=== PATIENT | female | born 1975 | race Caucasian/White ===

== ENCOUNTER 2016-05-14 19:06 | Observation (INO) ==
[2016-05-14] MEDS ORDERED: *HR* HYDROmorphone (PF) 1 MG/ML SYRINGE IVP ONE (20:50)
[2016-05-14 21:27] LABS: Basophils % 0.1 %; Eosinophils % 0.1 %; Hematocrit 32.1 % (35.3-44.9); Hemoglobin 10.8 g/dL (11.5-15.4); Immature Granulocytes % 0.7 % (0-4); Lymphocytes # 1.3 K/mcL (0.6-4.6); Lymphocytes % 9.8 %; Mean Corpuscular HGB Conc 33.6 g/dL (31.6-35.5); Mean Corpuscular Hemoglobin 30.9 pg (28.0-33.3); Mean Corpuscular Volume 91.7 fL (83.0-100.0); Mean Platelet Volume 8.3 fL (9.4-12.4); Monocytes # 1.9 K/mcL (0.0-1.3); Monocytes % 14.4 %; Platelet Count 327 K/mcL (140-400); Red Cell Distribution Width 15.9 % (11.5-14.5); Segmented Neutrophils % 74.9 %
[2016-05-14 21:40] LABS: Alanine Aminotransferase 87 Units/L (0-55); Albumin 2.8 g/dL (3.5-5.0); Albumin/Globulin Ratio 0.9 (1.1-2.2); Alkaline Phosphatase 201 Units/L (38-126); Aspartate Amino Transferase 135 Units/L (5-34); BUN/Creatinine Ratio 20 (6-26); Bilirubin,Total 0.4 mg/dL (0.2-1.2); Blood Urea Nitrogen 12 mg/dL (7-20); Calcium 7.9 mg/dL (8.6-10.8); Carbon Dioxide 13 mEq/L (19-29); Chloride 96 mEq/L (98-109); Globulin 3.2 g/dL (2.4-3.5); Glucose 119 mg/dL (70-99); Osmolality,Calculated 273 (280-300); Potassium 4.3 mEq/L (3.5-4.5); Sodium 131 mEq/L (136-145); eGFR For African Americans > 60 (> 60); eGFR For Non-African Americans > 60 (> 60)
--- NOTE | 2016-05-14 21:43 | Internal Med History&Physical ---
Date of Encounter: 05/14/16 Time of Encounter: 21:41 Assessment and Plan (1) Esophageal foreign body Current visit: Yes Status: Acute I have reviewed both chest x-ray and neck soft tissue x-rays, foreign body is not evident as best I can tell. We do need to pursue upper endoscopy though given her current symptoms of hypersalivation, inability to swallow, and foreign body sensation. I have discussed risks and benefits of the procedure with her in her room. She has consented. Risks to include perforation of the esophagus and stomach, as well as bleeding and infection. Qualifiers: Qualified Code(s): T18.108A - Unspecified foreign body in esophagus causing other injury, initial encounter (2) Alcohol abuse Current visit: Yes Status: Chronic (3) Mood disorder Current visit: Yes Status: Chronic (4) Alcoholic cirrhosis of liver without ascites Current visit: No Status: Chronic (5) Anemia Current visit: Yes Status: Chronic Qualifiers: Anemia type: iron deficiency Iron deficiency anemia type: unspecified iron deficiency Qualified Code(s): D50.9 - Iron deficiency anemia, unspecified Internal Medicine - H&P: HPI Chief complaint: Possible plastic lid swallowed and now with inability to swallow liquids History of present illness: Ms. Abdi is a 40 year old female presents to the ED with possible esophageal foreign body. She admits taking a drink of water last night in the dark, with her medication, but apparently the top of the plastic water bottle was still on and she excellent swallowed this. Since this a.m., she has been Unable to swallow liquids. She has also had some bouts of nausea and retching with some lower neck and upper anterior chest pain but only when she takes a deep breath or when she gags. She admits having alcoholic intoxication last night during spell. She's never had previous foreign body lodging in her esophagus. Past Med Surg Social Fam HX - Past Medical History Medical history: cirrhosis, GERD, hyperlipidemia, hypertension, liver disease, other Psychiatric history: ADHD, bipolar, prior suicide attempt, previous psychiatric hospitalization - Past Surgical History Surgical History: appendectomy, cholecystectomy, herniorrhaphy, hysterectomy, other (Previous PEG tube) - Social History Smoking Status: Current every day smoker Smokeless Tobacco Status: No Alcohol use: heavy Drug use: opiates Activity Level: Independent ambulation Additional social history: She has previous narcotic addiction currently taking Subutex, currently alcoholic - Family History Father Living Status: Still Living Hx Family Cardiac Disorders: No Hx Family Respiratory Disorders: No Hx Family Cancer: No Hx Family GI Disorders: No Hx Family Endocrine Disorder: No Hx Family Neuromuscular Disorders: No Hx Family Neurologic Disorders: No Hx Family HEENT Disorders: No Hx Family Autoimmune Disorders: No Grandfather Living Status: Hx Family Cardiac Disorders: Yes (MS) Maternal Grandmother Living Status: Still Living Hx Family Cancer: Yes (Lung) Sister Living Status: Still Living Hx Family Cancer: Yes (Ovarian) Mother Adopted: No Living Status: Still Living Hx Family Cardiac Disorders: No Hx Family Respiratory Disorders: No Hx Family Cancer: No Hx Family GI Disorders: No Hx Family Endocrine Disorder: Yes Hx Family Neuromuscular Disorders: No Hx Family Neurologic Disorders: No Hx Family HEENT Disorders: No Hx Family Autoimmune Disorders: No Internal Medicine - H&P: Meds CloNIDine HCl 0.1 mg PO TID PRN 12/20/14 [History] Cyanocobalamin (B-12) [Vitamin B12] 1 ml IJ QMONTH 12/20/14 [History] Dextroamphetamine/Amphetamine [Adderall 10 mg Tablet] 10 mg PO TID 12/20/14 [ History] Ergocalciferol (VITAMIN D2) [Drisdol (50,000 Unit)] 50,000 unit PO Q14D [History] OLANZapine [Zyprexa] 20 mg PO HS 12/20/14 [History] Ranitidine HCl [Zantac] 300 mg PO BID 12/20/14 [History] Sucralfate [Carafate] 1 gm PO QIDAC 12/20/14 [History] Albuterol Sulfate [Albuterol Inhaler] 2 puff IH Q4HR PRN #1 inhaler 12/21/14 [Rx ] Promethazine [Phenergan] 25 mg PO Q8HR PRN #90 tablet 12/21/14 [Rx] Lipase/Protease/Amylase [Pancrelipase Dr 5,000 Unit Cap] 360,000 unit PO TIDWM 02/04/15 [History] Simethicone [Gas-X] 80 mg PO TID 02/04/15 [History] Diphenoxylate/Atropine [Lomotil 2.5 mg/0.025 mg] 1 each PO QID PRN 07/28/15 [ History] Vilazodone HCl [Viibryd] 60 mg PO DAILY 09/16/15 [History] Nut.tx.impaired Digest Fxn [Ensure Clear] 1 bottle PO BID #60 can 10/22/15 [Rx] Aspirin [Lo-Dose Aspirin EC] 81 mg PO DAILY 10/29/15 [History] Buprenorphine HCl [Subutex] 8 mg SL BID 01/29/16 [History] Cyanocobalamin (B-12) [Vitamin B12] 1,000 mcg IM QMONTH #1 mls 02/29/16 [Rx] Esomeprazole Magnesium [Nexium] 40 mg PO BID #60 capsule.dr 02/29/16 [Rx] [place], Disposable [Needle] 1 each AD #12 dis.needle 02/29/16 [Rx] Potassium Chloride [Klor-Con M15] 15 meq PO DAILY 05/02/16 [History] Zinc Acetate [Galzin] 25 mg PO DAILY 05/02/16 [History] Allergies cephalexin Allergy (Verified 04/21/16 11:58) Rash clindamycin Allergy (Verified 04/21/16 11:58) Rash nalbuphine [From Nubain] Adverse Reaction (Verified 04/21/16 11:58) "didn't like the way it made me feel" All Systems PM: A 10-system review of systems was performed and is negative for pertinent findings except as documented above in the HPI. Review of systems: She does have a PICC line in for intermittent IV nutrition - Constitutional Constitutional: anorexia, no chills, no fatigue - Cardiovascular Cardiovascular ROS IM: chest pain, no diaphoresis, no dyspnea, no dyspnea on exertion, no palpitations Additional comments: Reports a history of previous [place]gwpvvyny-Dwwal - Respiratory Respiratory: pain with cough, no cough, no dyspnea, no hemoptysis, no dyspnea on exertion, no wheezing - Gastrointestinal Gastrointestinal: dysphagia, nausea, odynophagia, vomiting - Psychiatric Psychiatric: anxiety, depression - Constitutional Vitals: Temp Pulse Resp BP Pulse Ox 99.0 F 96 14 113/68 96 05/14/16 19:10 05/14/16 21:01 05/14/16 21:01 05/14/16 21:01 05/14/16 21:01 General appearance: Present: cachectic, mild distress, A&O X 3, answers questions appropriately - Head Head exam: Present: atraumatic - ENT ENT exam: Present: mucous membranes moist, normal exam - Neck Neck exam general surgery: Present: full ROM, normal inspection, tenderness, supple, trachea midline. Absent: lymphadenopathy, nuchal rigidity - Respiratory Respiratory exam: Present: CTAB - Cardiovascular Cardiovascular exam: Present: RRR. Absent: systolic murmur, tachycardia - GI/Abdominal GI/Abdominal exam: Present: normal bowel sounds, soft, no peritoneal signs. Absent: distended, firm, guarding, hernia, rebound, rigid, splenomegaly, tenderness - Rectal Rectal exam: Present: deferred Internal Med - H&P Results - Labs CBC & Chem 7: 05/14/16 21:14 Labs: Short CBC 05/14/16 Range/Units 21:14 WBC 13.3 H D (4.3-11.1) K/mcL Hgb 10.8 L (11.5-15.4) g/dL Hct 32.1 L (35.3-44.9) % Plt Count 327 (140-400) K/mcL Neutrophils # 10.0 H (1.6-8.9) K/mcL - Impressions ITS Impressions Chest/Abdomen X-ray 05/14/16 19:26 IMPRESSION: No radiopaque foreign body. Right PICC with tip at the cavoatrial junction. No acute abnormality in the chest. No evidence of bowel obstruction. No free intraperitoneal air. D/ / 05/14/2016 20:27:38 Demar Polo MD / [facility] Interpreting Provider: Demar Polo MD Soft Tissue Neck X-Ray 05/14/16 19:26 IMPRESSION: Nonspecific linear density along the anterior aspect of the esophagus just proximal to the thoracic inlet which could potentially reflect a foreign body given history of ingested bottle cap. D/ / Claudy Dorado MD / Claudy Dorado MD Interpreting Provider: Claudy Dorado MD
[2016-05-14] MEDS ORDERED: *HR* Propofol 200 MG/20 ML VIAL IVP ONE ×2 (21:54→22:42)
[2016-05-14] MEDS ORDERED: Lidocaine -MPF 2% 2 ML VIAL ONE (21:55)
[2016-05-14] MEDS ORDERED: *HR* Succinylcholine 200 MG/10 ML VIAL IVP ONE (21:56)
[2016-05-14] MEDS ORDERED: *HR* Midazolam HCl 2 MG/2 ML VIAL ONE (21:57)
[2016-05-14] MEDS ORDERED: *HR* FentaNYL (PF) 100 MCG/2 ML VIAL ONE (21:57)
[2016-05-14] MEDS ORDERED: Dexamethasone 4 MG/ML VIAL ONE (21:58)
[2016-05-14] MEDS ORDERED: *HR* Phenylephrine 10 MG/ML VIAL ONE (21:58)
[2016-05-14] MEDS ORDERED: Ondansetron 4 MG/2 ML VIAL ONE (21:58)
--- NOTE | 2016-05-14 21:58 | Pre-Sedation Evaluation ---
Pre-sedation evaluation - Pre-sedation checklist Recent Vitals: Last Vital Signs Temp 99.0 F 05/14/16 19:10 Pulse 96 05/14/16 21:01 Resp 14 05/14/16 21:01 BP 113/68 05/14/16 21:01 Pulse Ox 96 05/14/16 21:01
--- NOTE | 2016-05-14 22:19 | Anesthesia Evaluation PreOp ---
Date of Encounter: 05/14/16 Time of Encounter: 22:18 - Past History Planned Operation: FB removal (from esophagus) Cardiac History: Arrhythmia (hx WPW s/p ablation) Pulmonary History: Smoker, Other (hx bilateral PE) PERIANESTHESIA MANAGER History: Denies Any Significant HX Other Medical History: Hepatic (cirrhosis (per patient, no varices)), GERD, Other (hx platelet storage pool deficiency) Anesthesia History: No Prior Anesthetic Complications Alcohol Use: heavy Drug use: opiates Medications and Allergies CloNIDine HCl 0.1 mg PO TID PRN 12/20/14 [History] Cyanocobalamin (B-12) [Vitamin B12] 1 ml IJ QMONTH 12/20/14 [History] Dextroamphetamine/Amphetamine [Adderall 10 mg Tablet] 10 mg PO TID 12/20/14 [ History] Ergocalciferol (VITAMIN D2) [Drisdol (50,000 Unit)] 50,000 unit PO Q14D [History] OLANZapine [Zyprexa] 20 mg PO HS 12/20/14 [History] Ranitidine HCl [Zantac] 300 mg PO BID 12/20/14 [History] Sucralfate [Carafate] 1 gm PO QIDAC 12/20/14 [History] Albuterol Sulfate [Albuterol Inhaler] 2 puff IH Q4HR PRN #1 inhaler 12/21/14 [Rx ] Promethazine [Phenergan] 25 mg PO Q8HR PRN #90 tablet 12/21/14 [Rx] Lipase/Protease/Amylase [Pancrelipase Dr 5,000 Unit Cap] 360,000 unit PO TIDWM 02/04/15 [History] Simethicone [Gas-X] 80 mg PO TID 02/04/15 [History] Diphenoxylate/Atropine [Lomotil 2.5 mg/0.025 mg] 1 each PO QID PRN 07/28/15 [ History] Vilazodone HCl [Viibryd] 60 mg PO DAILY 09/16/15 [History] Nut.tx.impaired Digest Fxn [Ensure Clear] 1 bottle PO BID #60 can 10/22/15 [Rx] Aspirin [Lo-Dose Aspirin EC] 81 mg PO DAILY 10/29/15 [History] Buprenorphine HCl [Subutex] 8 mg SL BID 01/29/16 [History] Cyanocobalamin (B-12) [Vitamin B12] 1,000 mcg IM QMONTH #1 mls 02/29/16 [Rx] Esomeprazole Magnesium [Nexium] 40 mg PO BID #60 capsule.dr 02/29/16 [Rx] [place]abel, Disposable [Needle] 1 each AD #12 dis.needle 02/29/16 [Rx] Potassium Chloride [Klor-Con M15] 15 meq PO DAILY 05/02/16 [History] Zinc Acetate [Galzin] 25 mg PO DAILY 05/02/16 [History] Allergies cephalexin Allergy (Verified 04/21/16 11:58) Rash clindamycin Allergy (Verified 04/21/16 11:58) Rash nalbuphine [From Nubain] Adverse Reaction (Verified 04/21/16 11:58) "didn't like the way it made me feel" - Meds/Allergy Pre-op Review Medications Reviewed: Yes Allergies Reviewed: Yes Beta Blockers on Current Med List: No Anesthesia Results - Labs 05/14/16 21:14 05/14/16 21:14 - Imaging EKG: report reviewed, image reviewed (SR with short MS) Additional studies: -2015 TTE LVEF 60-65% no sign valvular dysfunction Anesthesia Exam Last Vital Signs Temp 99.0 F 05/14/16 19:10 Pulse 96 05/14/16 21:01 Resp 14 05/14/16 21:01 BP 113/68 05/14/16 21:01 Pulse Ox 96 05/14/16 21:01 Weight: 53 kg - HEENT Pupil (Motor): Pupils equal, EOMI Mallampati: II Teeth: Missing, Poor dentition, Prosthesis Denture Type: Lower: Partial Oral Opening: Greater than 3 - PERIANESTHESIA MANAGER LOC: Oriented - Cardiac Rhythm: Regular Murmur: None - Pulmonary Breath Sounds: bilateral Clear Respiratory Effort: Symmetrical Anesthesia Assess/Plan ASA Score: 3 Modified [place] Scale for Level of Consciousness: Cooperative, oriented, and tranquil Anesthetic Plan: General Monitoring Plan: Standard Monitors Recovery Plan: PACU
[2016-05-14 22:24] LABS: ABG Base Excess -6.9 mEq/L (-2.0 to 3.0); ABG HCO3 17.3 mEQ/L (21-27); ABG Oxygen Saturation 83 % (95-98); ABG PCO2 30 mmHg (35-45); ABG PH 7.37 pH Units (7.32-7.45); ABG TCO2 18.2 mEq/L (20-26)
[2016-05-14 22:25] LABS: Blood Gas FiO2 21 %
[2016-05-14 22:26] LABS: ABG PO2 49 mmHg (85-104)
[2016-05-14] MEDS ORDERED: D5% in 0.45% NACL 1,000 ML IVC SCH (23:00)
--- NOTE | 2016-05-14 23:06 | Event Note ---
Date of Encounter: 05/14/16 Time of Encounter: 23:04 With the help of General Anesthesia, able to remove plastic bottle cap from upper esophagus. Minimal post procedure trauma noted afterward; no bleeding, no tear. Will allow her to wake up on the floor, try Ice chips and sips of water; if she does well can send home this evening.
--- NOTE | 2016-05-14 23:08 | Emergency Department Note ---
Disposition Clinical Impression: Esophageal foreign body Qualifiers: Qualified Code(s): T18.108A - Disposition: Admitted As Inpatient Condition: Good General Adult HPI - General Chief complaint: ED Skin/Abscess/Foreign Body Stated complaint: FB in Throat Time Seen by Provider: 05/14/16 19:25 Source: patient, family Limitations: no limitations Nursing Notes Reviewed: Yes Vital Signs Reviewed: Yes - History of Present Illness HPI Narrative: Female patient who was intoxicated last evening and ingested the cap of a water bottle attempting to swallow her pills. She has since had a a foreign body sensation in her throat ever since ingestion. Denies fever, chills. Previous history of gastric bypass, feeding tube in place for malnourishment Pain Scale: 0 - Related Data Home Medications Medication Instructions Recorded Confirmed CloNIDine HCl 0.1 mg PO TID PRN 12/20/14 04/21/16 Cyanocobalamin (B-12) [Vitamin B12] 1 ml IJ QMONTH 12/20/14 04/21/16 Dextroamphetamine/Amphetamine 10 mg PO TID 12/20/14 04/21/16 [Adderall 10 mg Tablet] Ergocalciferol (VITAMIN D2) 50,000 unit PO Q14D 12/20/14 04/21/16 [Drisdol (50,000 Unit)] OLANZapine [Zyprexa] 20 mg PO HS 12/20/14 04/21/16 Ranitidine HCl [Zantac] 300 mg PO BID 12/20/14 04/21/16 Sucralfate [Carafate] 1 gm PO QIDAC 12/20/14 04/21/16 Lipase/Protease/Amylase 360,000 unit PO TIDWM 02/04/15 04/21/[address] [[address] 5,000 Unit Cap] Simethicone [Gas-X] 80 mg PO TID 02/04/15 04/21/16 Diphenoxylate/Atropine [Lomotil 1 each PO QID PRN 07/28/15 04/21/16 2.5 mg/0.025 mg] Vilazodone HCl [Viibryd] 60 mg PO DAILY 09/16/15 04/21/16 Aspirin [Lo-Dose Aspirin EC] 81 mg PO DAILY 10/29/15 04/21/16 Buprenorphine HCl [Subutex] 8 mg SL BID 01/29/16 04/21/16 Potassium Chloride [Klor-Con M15] 15 meq PO DAILY 05/02/16 05/02/16 Zinc Acetate [Galzin] 25 mg PO DAILY 05/02/16 05/02/16 Previous Rx's Medication Instructions Recorded Albuterol Sulfate [Albuterol 2 puff IH Q4HR PRN #1 inhaler 12/21/14 Inhaler] Promethazine [Phenergan] 25 mg PO Q8HR PRN #90 tablet 12/21/14 Nut.tx.impaired Digest Fxn [Ensure 1 bottle PO BID #60 can 10/22/15 Clear] Cyanocobalamin (B-12) [Vitamin B12] 1,000 mcg IM QMONTH #1 mls 02/29/16 Esomeprazole Magnesium [Nexium] 40 mg PO BID #60 capsule.dr 02/29/16 [place], Disposable [Needle] 1 each MC AD #12 dis.needle 02/29/16 Allergies Allergy/AdvReac Type Severity Reaction Status Date / Time cephalexin Allergy Rash Verified 04/21/16 11:58 clindamycin Allergy Rash Verified 04/21/16 11:58 nalbuphine [From Nubain] AdvReac "didn't Verified 04/21/16 11:58 like the way it made me feel" All systems ED: reviewed and negative except as stated. Past Medical History - Past Medical History Medical history: Reports: cirrhosis, GERD, hyperlipidemia, hypertension, liver disease, other Surgical history: Reports: appendectomy, cholecystectomy, herniorrhaphy, hysterectomy, other (Previous PEG tube) Psychiatric history: Reports: ADHD, bipolar, prior suicide attempt, previous psychiatric hospitalization FLOOR PERSON history: Reports: no FLOOR PERSON history - Social History Smoking Status: Current every day smoker Smokeless Tobacco Status: No Alcohol use: Reports: heavy Drug use: Reports: opiates Physical Exam Alert and oriented no acute distress pink warm and dry Pupils are equal and reactive, TMs clear bilaterally, mucous membranes moist, trachea midline Cardiovascular exam shows regular rate and rhythm no murmur, rub, gallop Lungs are clear to auscultation bilaterally Abdomen is soft, nontender, there is a feeding tube in place and a previous surgical incision Extremities are without cyanosis clubbing or edema Neurologic exam is without focal neurological deficit Skin is pink warm and dry There is no palpable lymphadenopathy There is no bruising - General Limitations: no limitations General appearance: alert, in no apparent distress Course Vital Signs Temperature 99.0 F 05/14/16 19:10 Pulse Rate 100 05/14/16 19:10 Respiratory Rate 16 05/14/16 19:10 Blood Pressure 113/61 05/14/16 19:10 O2 Sat by Pulse Oximetry 100 05/14/16 19:10 Temperature 99.0 F 05/14/16 22:56 Pulse Rate 110 05/14/16 22:56 Respiratory Rate 18 05/14/16 22:56 Blood Pressure 122/68 05/14/16 22:56 O2 Sat by Pulse Oximetry 100 05/14/16 22:56 Oxygen Delivery Oxygen Delivery Room Air Medical Decision Making - MDM Narrative Medical decision making narrative: Foreign body series to evaluate for possible retained foreign body in the esophagus. There is evidence of possible foreign body. I discussed the case with the on-call automobile club membership sales agent. The patient will be taken to endoscopy for retrieval. Of note she was found to have anemia, leukocytosis. She has a history of cirrhosis and baseline transaminitis. She will be admitted to gastroenterology for foreign body retrieval. - Lab Data Result diagrams: 05/14/16 21:14 05/14/16 21:14 Lab Results 05/14/16 05/14/16 05/14/16 Range/Units 21:14 21:14 22:15 WBC 13.3 H D (4.3-11.1) K/mcL RBC 3.50 L (3.82-4.97) M/mcL Hgb 10.8 L (11.5-15.4) g/dL Hct 32.1 L (35.3-44.9) % MCV 91.7 (83.0-100.0) fL MCH 30.9 (28.0-33.3) pg MCHC 33.6 (31.6-35.5) g/dL RDW 15.9 H (11.5-14.5) % Plt Count 327 (140-400) K/mcL MPV 8.3 L (9.4-12.4) fL Immature Gran % 0.7 (0-4) % Seg Neutrophils % 74.9 % Lymphocytes % 9.8 % Monocytes % 14.4 % Eosinophils % 0.1 % Basophils % 0.1 % Neutrophils # 10.0 H (1.6-8.9) K/mcL Lymphocytes # 1.3 (0.6-4.6) K/mcL Monocytes # 1.9 H (0.0-1.3) K/mcL Eosinophils # 0.0 (0.0-0.6) K/mcL Basophils # 0.0 (0.0-0.2) K/mcL ABG pH 7.37 (7.32-7.45) pH Units ABG pCO2 30 L (35-45) mmHg ABG pO2 49 L* (85-104) mmHg ABG HCO3 17.3 L (21-27) mEQ/L ABG Total CO2 18.2 L (20-26) mEq/L ABG O2 Saturation 83 L (95-98) % ABG Base Excess -6.9 L (-2.0 to 3.0) mEq/L Blood Gas Modality RA Inspired O2 21 % Sodium 131 L (136-145) mEq/L Potassium 4.3 (3.5-4.5) mEq/L Chloride 96 L (98-109) mEq/L Carbon Dioxide 13 L (19-29) mEq/L BUN 12 (7-20) mg/dL Creatinine 0.60 (0.57-1.11) mg/dL Est GFR ( Amer) > 60 (> 60) Est GFR (Non-Af Amer) > 60 (> 60) BUN/Creatinine Ratio 20 (6-26) Glucose 119 H (70-99) mg/dL Calculated Osmolality 273 L (280-300) Calcium 7.9 L (8.6-10.8) mg/dL Total Bilirubin 0.4 (0.2-1.2) mg/dL AST 135 H (5-34) Units/L ALT 87 H (0-55) Units/L Alkaline Phosphatase 201 H (38-126) Units/L Serum Total Protein 6.0 (6.0-8.3) g/dL Albumin 2.8 L (3.5-5.0) g/dL Globulin 3.2 (2.4-3.5) g/dL Albumin/Globulin Ratio 0.9 L (1.1-2.2)
--- NOTE | 2016-05-14 23:17 | Anesthesia Evaluation Post Op ---
Date of Encounter: 05/14/16 Time of Encounter: 23:17 - Vital Signs Vital Signs: Last Vital Signs Temp 99.0 F 05/14/16 22:56 Pulse 91 05/14/16 23:06 Resp 18 05/14/16 23:06 BP 116/56 05/14/16 23:06 Pulse Ox 100 05/14/16 23:06 - Lungs Lungs: Clear Ascult./Percussion - Airway Airway: Non-obstructed - Cardiovascular Regular Rate - Mental Status Mental Status: Alert & Oriented, Answers Appropriately - Pain Pain Scale: 2 - Nausea Vomiting Nausea Vomiting: Not Present - Hydration Hydration: NPO - Discharge PostOp Status: Transfer Patient to floor
[2016-05-15] MEDS: *HR* Promethazine 25 MG/ML VIAL IVP PRN ×2 (00:16→05:27)
[2016-05-15 06:51] VITALS: BP 107/72
--- NOTE | 2016-05-15 06:56 | Discharge Summary ---
Date of Encounter: 05/16/16 Time of Encounter: 06:52 - Discharge Diagnosis (1) Alcohol abuse Priority: Secondary Status: Chronic (2) Alcoholic cirrhosis of liver without ascites Priority: Secondary Status: Chronic (3) Anemia Priority: Secondary Status: Chronic Qualifiers: Iron deficiency anemia type: inadequate dietary iron intake Qualified Code( s): D50.8 - Other iron deficiency anemias (4) Hypoalbuminemia due to protein-calorie malnutrition Priority: Secondary Status: Chronic (5) Malabsorption Priority: Secondary Status: Chronic Qualifiers: Intestinal malabsorption type: unspecified Qualified Code(s): K90.9 - Intestinal malabsorption, unspecified (6) Hyponatremia Priority: Secondary Status: Acute - Discharge Medications Home Medications: CloNIDine HCl 0.1 mg PO TID PRN 12/20/14 [History] Cyanocobalamin (B-12) [Vitamin B12] 1 ml IJ QMONTH 12/20/14 [History] Dextroamphetamine/Amphetamine [Adderall 10 mg Tablet] 10 mg PO TID 12/20/14 [ History] Ergocalciferol (VITAMIN D2) [Drisdol (50,000 Unit)] 50,000 unit PO Q14D [History] OLANZapine [Zyprexa] 20 mg PO HS 12/20/14 [History] Ranitidine HCl [Zantac] 300 mg PO BID 12/20/14 [History] Sucralfate [Carafate] 1 gm PO QIDAC 12/20/14 [History] Albuterol Sulfate [Albuterol Inhaler] 2 puff IH Q4HR PRN #1 inhaler 12/21/14 [Rx ] Promethazine [Phenergan] 25 mg PO Q8HR PRN #90 tablet 12/21/14 [Rx] Lipase/Protease/Amylase [Pancrelipase Dr 5,000 Unit Cap] 360,000 unit PO TIDWM 02/04/15 [History] Simethicone [Gas-X] 80 mg PO TID 02/04/15 [History] Diphenoxylate/Atropine [Lomotil 2.5 mg/0.025 mg] 1 each PO QID PRN 07/28/15 [ History] Vilazodone HCl [Viibryd] 60 mg PO DAILY 09/16/15 [History] Nut.tx.impaired Digest Fxn [Ensure Clear] 1 bottle PO BID #60 can 10/22/15 [Rx] Aspirin [Lo-Dose Aspirin EC] 81 mg PO DAILY 10/29/15 [History] Buprenorphine HCl [Subutex] 8 mg SL BID 01/29/16 [History] Esomeprazole Magnesium [Nexium] 40 mg PO BID #60 capsule. 02/29/16 [Rx] [place], Disposable [Needle] 1 each AD #12 dis.needle 02/29/16 [Rx] Potassium Chloride [Klor-Con M15] 15 meq PO DAILY 05/02/16 [History] Zinc Acetate [Galzin] 25 mg PO DAILY 05/02/16 [History] Allergies/Adverse Reactions: Allergies cephalexin Allergy (Verified 04/21/16 11:58) Rash clindamycin Allergy (Verified 04/21/16 11:58) Rash nalbuphine [From Nubain] Adverse Reaction (Verified 04/21/16 11:58) "didn't like the way it made me feel" Date of admission: 05/14/16 22:55 Primary care physician: Jacky Farley DO Consults: 05/15/16 00:45 Consult to Scientific Laboratory Supervisor [CONS] Routine Reason for SW Consult: home health Discharging clinician: Kayden Becker Anticipated date of discharge: 05/15/16 - Patient Status Disposition: Home, Self-Care Condition: Good Functional capacity at discharge: independent ambulation Overall status at discharge: patient is back to baseline - Discharge Instructions Follow Up With: Jia Gamez DO [Resident] - 05/23/16 1:00 pm Forms: ED Satisfaction Letter - Diet and Activity Activity: increase activity as tolerated Diet: advance to your usual diet Interval History: Just watched for short period after removal of esoph. foreign body. Hospital course: Ms. Abdi is a 40 year old female - Time Spent with Patient Total time spent providing and/or coordinating discharge services: Less than 30 minutes - Constitutional Vitals: Temp Pulse Resp BP Pulse Ox 99.7 F H 98 14 107/72 100 05/15/16 06:50 05/15/16 06:50 05/15/16 06:50 05/15/16 06:50 05/15/16 06:50 General appearance: Present: cachectic, mild distress, A&O X 3, answers questions appropriately Exam: She is A and A, some expected mild neck soreness; no odynophagia, the insp. pain has resolved. She is back to baseline and ready to go home. - Neck Neck exam general surgery: Present: full ROM, normal inspection, supple, trachea midline. Absent: nuchal rigidity - Respiratory Respiratory exam: Present: CTAB - Cardiovascular Cardiovascular exam: Present: RRR - GI/Abdominal GI/Abdominal exam: Present: normal bowel sounds, soft. Absent: rebound, rigid, tenderness - VTE Reasons for not Prescribing Prophylaxis: Treatment not Indicated - Low risk for VTE Contraindication No Overlap Therapy: Medical contraindication Deep Vein Thrombosis/Pulmonary Embolism Present on Admission: No
== END 2016-05-15 09:51 | disposition home health service (06) ==
LOC: 3ANU 19:06 → EMEROO 19:06 → 3ANU 05-15 02:23
PROVIDERS: ADMIT Internal Medicine; ATTEND Internal Medicine

== ENCOUNTER 2016-10-03 17:20 | Inpatient (IN) ==
[2016-10-03] MEDS ORDERED: *HR* LORazepam 2 MG/ML VIAL IVP ONE ×3 (17:38→21:27)
--- NOTE | 2016-10-03 17:51 | Emergency Department Note ---
Disposition Clinical Impression: Alcohol withdrawal delirium, Hypokalemia Disposition: Admitted As Inpatient Referrals: Jacky Farley DO [Primary Care Provider] - Forms: Work/School Release, ED Satisfaction Letter Alcohol HPI - General Chief Complaint: ED Abdominal Pain Stated Complaint: "Abdominal Pain, drinking vodka for 5 days" Source: EMS Limitations: no limitations Nursing Notes Reviewed: Yes Vital Signs Reviewed: Yes - History of Present Illness HPI Narrative: Patient is a 41-year-old female with history of opioid abuse and alcohol abuse is here for alcohol withdrawal. She states she was weaned off Subutex to start Limbitrol the doctor did not start her Glucotrol so she got upset and has been on a binge or of alcohol drinking a liter a day for the past 3 months. She states she stopped drinking alcohol 2 days ago and now is having withdrawal symptoms. She had a similar episode last year and required 4 days hospitalization for Ativan for severe withdrawal symptoms Pt Subjective Complaint: alcohol withdrawal Chronic Alcohol Use: Yes Previous Visits for Alcohol Intoxication?: Yes Recent Trauma: No Treatments prior to arrival: none - Related Data Home Medications Medication Instructions Recorded Confirmed CloNIDine HCl 0.1 mg PO TID PRN 12/20/14 04/21/16 Cyanocobalamin (B-12) [Vitamin B12] 1 ml IJ QMONTH 12/20/14 04/21/16 Dextroamphetamine/Amphetamine 10 mg PO TID 12/20/14 04/21/16 [Adderall 10 mg Tablet] Ergocalciferol (VITAMIN D2) 50,000 unit PO Q14D 12/20/14 04/21/16 [Drisdol (50,000 Unit)] OLANZapine [Zyprexa] 20 mg PO HS 12/20/14 04/21/16 Ranitidine HCl [Zantac] 300 mg PO BID 12/20/14 04/21/16 Sucralfate [Carafate] 1 gm PO QIDAC 12/20/14 04/21/16 Lipase/Protease/Amylase 360,000 unit PO TIDWM 02/04/15 04/21/16 [Pancrelipase Dr 5,000 Unit Cap] Simethicone [Gas-X] 80 mg PO TID 02/04/15 04/21/16 Diphenoxylate/Atropine [Lomotil 1 each PO QID PRN 07/28/15 04/21/16 2.5 mg/0.025 mg] Vilazodone HCl [Viibryd] 60 mg PO DAILY 09/16/15 04/21/16 Aspirin [Lo-Dose Aspirin EC] 81 mg PO DAILY 10/29/15 04/21/16 Buprenorphine HCl [Subutex] 8 mg SL BID 01/29/16 04/21/16 Potassium Chloride [Klor-Con M15] 15 meq PO DAILY 05/02/16 05/02/16 Zinc Acetate [Galzin] 25 mg PO DAILY 05/02/16 05/02/16 Previous Rx's Medication Instructions Recorded Albuterol Sulfate [Albuterol 2 puff IH Q4HR PRN #1 inhaler 12/21/14 Inhaler] Promethazine [Phenergan] 25 mg PO Q8HR PRN #90 tablet 12/21/14 Nut.tx.impaired Digest Fxn [Ensure 1 bottle PO BID #60 can 10/22/15 Clear] Esomeprazole Magnesium [Nexium] 40 mg PO BID #60 capsule. 02/29/16 Stanton, Disposable [Needle] 1 each AD #12 dis.needle 02/29/16 Folic Acid 1 mg PO DAILY #90 tablet 06/13/16 Allergies Allergy/AdvReac Type Severity Reaction Status Date / Time cephalexin Allergy Rash Verified 04/21/16 11:58 clindamycin Allergy Rash Verified 04/21/16 11:58 nalbuphine [From Nubain] AdvReac "didn't Verified 04/21/16 11:58 like the way it made me feel" All systems ED: reviewed and negative except as stated. Constitutional: Reports: weakness. 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 - Social History Smoking Status: Current every day smoker Smokeless Tobacco Status: No Alcohol use: Reports: heavy Drug use: Reports: opiates Physical Exam - General Limitations: no limitations General appearance: alert, in no apparent distress - Head Head exam: atraumatic, normocephalic, normal inspection - Eye Eye exam: Present: normal appearance, PERRL, EOMI - ENT ENT exam: normal exam, normal oropharynx, mucous membranes moist - Neck Neck exam: Present: normal inspection, full ROM, trachea midline - Chest Chest inspection: Present: normal inspection, symmetric chest wall rise - Respiratory Respiratory exam: Present: normal lung sounds bilaterally - Cardiovascular Cardiovascular exam: Present: regular rate, normal rhythm, normal heart sounds - Abdominal Exam Abdominal exam: Present: soft, Non-Tender. Absent: tenderness, distention, guarding, rebound, rigidity - Psychiatric Psychiatric exam: Present: other (seems under the influence of some substance) - Skin Skin exam: Present: warm, dry, intact, normal color Course Vital Signs Temperature 98.2 F 10/03/16 17:23 Pulse Rate 101 10/03/16 17:23 Respiratory Rate 18 10/03/16 17:23 Blood Pressure 132/83 10/03/16 17:23 O2 Sat by Pulse Oximetry 98 10/03/16 17:23 Temperature 98.2 F 10/03/16 17:23 Pulse Rate 115 10/03/16 19:35 Respiratory Rate 18 10/03/16 19:35 Blood Pressure 155/75 10/03/16 19:35 O2 Sat by Pulse Oximetry 91 10/03/16 19:35 Oxygen Delivery Oxygen Delivery Room Air Alcohol - Differential Diagnosis Differential Diagnosis: Likely: alcohol withdrawal delirium, hypomagnesemia, metabolic abnormality, alcohol withdrawal syndrome - Medical Records Medical records reviewed: Yes I reviewed the patient's medical records. - Lab Data Lab results reviewed: Yes I reviewed the patient's lab results. Result diagrams: 10/03/16 18:01 10/03/16 18:01 Lab Results 10/03/16 10/03/16 10/03/16 Range/Units 18:01 18:01 18:01 WBC 5.0 (4.3-11.1) K/mcL RBC 4.56 (3.82-4.97) M/mcL Hgb 12.3 (11.5-15.4) g/dL Hct 37.1 (35.3-44.9) % MCV 81.4 L (83.0-100.0) fL MCH 27.0 L (28.0-33.3) pg MCHC 33.2 (31.6-35.5) g/dL RDW 23.1 H (11.5-14.5) % Plt Count 235 (140-400) K/mcL MPV 8.9 L (9.4-12.4) fL Immature Gran % 0.4 (0-4) % Seg Neutrophils % 63.8 % Lymphocytes % 27.9 % Monocytes % 7.3 % Eosinophils % 0.4 % Basophils % 0.2 % Neutrophils # 3.2 (1.6-8.9) K/mcL Lymphocytes # 1.4 (0.6-4.6) K/mcL Monocytes # 0.4 (0.0-1.3) K/mcL Eosinophils # 0.0 (0.0-0.6) K/mcL Basophils # 0.0 (0.0-0.2) K/mcL Platelet Estimate Normal (Normal) Sodium 138 (136-145) mEq/L Potassium 3.0 L (3.5-4.5) mEq/L Chloride 104 (98-109) mEq/L Carbon Dioxide 19 (19-29) mEq/L BUN 6 L (7-20) mg/dL Creatinine 0.81 (0.57-1.11) mg/dL Est GFR ( Amer) > 60 (> 60) Est GFR (Non-Af Amer) > 60 (> 60) BUN/Creatinine Ratio 7 (6-26) Glucose 268 H (70-99) mg/dL Calculated Osmolality 293 (280-300) Calcium 8.5 L (8.6-10.8) mg/dL Magnesium 1.7 (1.6-2.6) mg/dL Total Bilirubin 0.8 (0.2-1.2) mg/dL Direct Bilirubin 0.4 (0.0-0.5) mg/dL Indirect Bilirubin 0.4 (0.0-1.2) mg/dL AST 205 H (5-34) Units/L ALT 117 H (0-55) Units/L Alkaline Phosphatase 161 H (38-126) Units/L Serum Total Protein 6.0 (6.0-8.3) g/dL Albumin 2.9 L (3.5-5.0) g/dL Globulin 3.1 (2.4-3.5) g/dL Albumin/Globulin Ratio 0.9 L (1.1-2.2) Amylase 48 (25-125) Units/L Lipase 212 H (8-78) Units/L Acetaminophen 18.0 (10-30) mcg/mL Ethyl Alcohol < 10 (0-10) mg/dL
[2016-10-03 18:14] LABS: Basophils % 0.2 %; Eosinophils % 0.4 %; Hematocrit 37.1 % (35.3-44.9); Hemoglobin 12.3 g/dL (11.5-15.4); Immature Granulocytes % 0.4 % (0-4); Lymphocytes # 1.4 K/mcL (0.6-4.6); Lymphocytes % 27.9 %; Mean Corpuscular HGB Conc 33.2 g/dL (31.6-35.5); Mean Corpuscular Volume 81.4 fL (83.0-100.0); Mean Platelet Volume 8.9 fL (9.4-12.4); Monocytes # 0.4 K/mcL (0.0-1.3); Monocytes % 7.3 %; Neutrophils # 3.2 K/mcL (1.6-8.9); Platelet Count 235 K/mcL (140-400); Red Blood Count 4.56 M/mcL (3.82-4.97); Red Cell Distribution Width 23.1 % (11.5-14.5); Segmented Neutrophils % 63.8 %
[2016-10-03 18:28] LABS: BUN/Creatinine Ratio 7 (6-26); Bilirubin,Total 0.8 mg/dL (0.2-1.2); Blood Urea Nitrogen 6 mg/dL (7-20); Calcium 8.5 mg/dL (8.6-10.8); Carbon Dioxide 19 mEq/L (19-29); Chloride 104 mEq/L (98-109); Glucose 268 mg/dL (70-99); Osmolality,Calculated 293 (280-300); Sodium 138 mEq/L (136-145); eGFR For African Americans > 60 (> 60); eGFR For Non-African Americans > 60 (> 60)
[2016-10-03 18:29] LABS: Alanine Aminotransferase 117 Units/L (0-55); Albumin 2.9 g/dL (3.5-5.0); Albumin/Globulin Ratio 0.9 (1.1-2.2); Alkaline Phosphatase 161 Units/L (38-126); Amylase 48 Units/L (25-125); Aspartate Amino Transferase 205 Units/L (5-34); Bilirubin,Direct 0.4 mg/dL (0.0-0.5); Bilirubin,Indirect 0.4 mg/dL (0.0-1.2); Globulin 3.1 g/dL (2.4-3.5); Lipase 212 Units/L (8-78)
[2016-10-03 18:34] LABS: Platelet Estimate Normal (Normal)
[2016-10-03 19:53] LABS: Magnesium 1.7 mg/dL (1.6-2.6)
[2016-10-03] MEDS ORDERED: Potassium Chloride 40 MEQ, Lidocaine 1% 2 ML in D5% in Water 500 ML IVPB ONE (20:08)
[2016-10-03] MEDS ORDERED: 0.9 % Sodium Chloride 1,000 ML IVC ONE (20:21)
[2016-10-03] MEDS ORDERED: cloNIDine HCl 0.1 MG TABLET PO PRN (21:58)
[2016-10-03] MEDS ORDERED: Ketorolac 30 MG/ML VIAL IVP PRN (22:02)
[2016-10-03] MEDS ORDERED: Ipratropium/Albuterol Neb 3 ML IH PRN (22:02)
[2016-10-03] MEDS ORDERED: Naloxone 0.4 MG/ML INJ IVP PRN (22:02)
[2016-10-03] MEDS ORDERED: Acetaminophen 325 MG TABLET PO PRN (22:02)
[2016-10-03] MEDS ORDERED: Dextrose Gel 15 GM PO PRN ×2 (22:08)
[2016-10-03] MEDS ORDERED: *HR* Dextrose 50 % in Water (Syg) 50 ML SYRINGE IVP PRN (22:08)
[2016-10-03] MEDS ORDERED: D5% in Water 1,000 ML IVC PRN (22:08)
--- NOTE | 2016-10-03 22:13 | Internal Med History&Physical ---
Date of Encounter: 10/03/16 Time of Encounter: 22:11 Assessment and Plan (1) Alcohol withdrawal delirium Current visit: Yes Status: Acute Acute alcohol withdrawal Continue Librium and taper Use Ativan as needed Protonix IV for GI prophylaxis and subcutaneous heparin for DVT prophylaxis. The patient will be admitted as inpatient, expected to stay more than 2 midnights. Full code. Time spent on this admission 40 minutes. High risk due to alcohol withdrawal (2) Pancreatitis Current visit: No Status: Acute Chronic pancreatitis Qualifiers: Chronicity: chronic Pancreatitis type: alcohol induced Qualified Code(s) : K86.0 - Alcohol-induced chronic pancreatitis (3) Malnutrition Current visit: No Status: Chronic (4) Alcoholism Current visit: No Status: Chronic (5) Elevated LFTs Current visit: No Status: Chronic Likely secondary to alcoholism (6) Tobacco abuse Current visit: No Status: Acute Smoking cessation counseling. Nicotine patch ordered (7) Chronic pancreatitis Current visit: No Status: Acute Qualifiers: Pancreatitis type: alcohol induced Qualified Code(s): K86.0 - Alcohol- induced chronic pancreatitis (8) Bipolar disorder Current visit: No Status: Chronic Qualifiers: Active/Remission status: in partial remission Most recent bipolar episode type: most recent episode unspecified type Qualified Code(s): F31.70 - Bipolar disorder, currently in remission, most recent episode unspecified (9) Opiate abuse, episodic Current visit: No Status: Chronic Resume Subutex (10) Hypokalemia Current visit: No Status: Resolved Replete as needed (11) Malabsorption syndrome Current visit: No Status: Chronic Qualifiers: Intestinal malabsorption type: blind loop syndrome Qualified Code(s): 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 Abdi is a 41 year old female with a past medical history of polysubstance abuse, alcohol abuse, chronic pancreatitis, cirrhosis, peptic ulcer disease who comes to the emergency room complaining of alcohol withdrawal symptoms. Patient says that she has been taking Subutex and was supposed to be started on Limbitrol, she took only one dose of Limbitrol today but unfortunately became symptomatic, has been shaking and extremely anxious. She says that she quit drinking 2 days ago and for the past few weeks and months she has been drinking about a liter of hard liquor every day. Her heart rate today is 115 blood pressure 155/75 potassium is 3 glucose 268 AST 205 ALT 117 lipase 212 no alcohol in her system. She received 2 doses of 1 mg of IV Ativan, is very somnolent at the moment, slightly confused at times, shows tremors. Not able to complete a history because of her somnolence complains of some abdominal pain but she has history of chronic pancreatitis. Past Med Surg Social Fam HX - Past Medical History Medical history: cirrhosis, GERD, hyperlipidemia, hypertension, liver disease, other ([id number]-[id number] status post ablation 20 years ago, peptic ulcer disease, opiate abuse, alcohol abuse, iron deficiency anemia, hyponatremia, pulmonary emboli used to be on Xarelto, surgical wound infections, cirrhosis, suicidal ideation in the past, malnutrition, chronic pancreatitis, tobacco use, ADHD, bipolar disorder) Psychiatric history: ADHD, bipolar, prior suicide attempt, previous psychiatric hospitalization - Past Surgical History Surgical History: appendectomy, cholecystectomy, herniorrhaphy, hysterectomy, other (Multiple abdominal surgeries, gastric bypass, small bowel obstruction surgeries) - Social History Smoking Status: Current every day smoker Packs per day: One pack per day Smokeless Tobacco Status: No Alcohol use: heavy (1 L of hard liquor every day) Drug use: opiates - Family History Father Living Status: Still Living Hx Family Cardiac Disorders: No Hx Family Respiratory Disorders: No Hx Family Cancer: No Hx Family GI Disorders: No Hx Family Endocrine Disorder: No Hx Family Neuromuscular Disorders: No Hx Family Neurologic Disorders: No Hx Family HEENT Disorders: No Hx Family Autoimmune Disorders: No Grandfather Living Status: Hx Family Cardiac Disorders: Yes ([place]) Maternal Grandmother Living Status: Still Living Hx Family Cancer: Yes (Lung) Sister Living Status: Still Living Hx Family Cancer: Yes (Ovarian) Mother Adopted: No Living Status: Still Living Hx Family Cardiac Disorders: No Hx Family Respiratory Disorders: No Hx Family Cancer: No Hx Family GI Disorders: No Hx Family Endocrine Disorder: Yes (hypothyroidism) Hx Family Neuromuscular Disorders: No Hx Family Neurologic Disorders: No Hx Family HEENT Disorders: No Hx Family Autoimmune Disorders: No - Additional Family History Additional family history: Sr. with diabetes, mother with hypertension, paternal grandfather with alcoholism Internal Medicine - H&P: Meds CloNIDine HCl 0.1 mg PO TID PRN 08/30/15 [History] Cyanocobalamin (B-12) [Vitamin B12] 1 ml IJ QMONTH 12/20/14 [History] Dextroamphetamine/Amphetamine [Adderall 10 mg Tablet] 10 mg PO TID 12/20/14 [ History] Ergocalciferol (VITAMIN D2) [Drisdol (50,000 Unit)] 50,000 unit PO Q14D [History] OLANZapine [Zyprexa] 20 mg PO HS 12/20/14 [History] Ranitidine HCl [Zantac] 300 mg PO BID 12/20/14 [History] Sucralfate [Carafate] 1 gm PO QIDAC 12/20/14 [History] Albuterol Sulfate [Albuterol Inhaler] 2 puff IH Q4HR PRN #1 inhaler 12/21/14 [Rx ] Promethazine [Phenergan] 25 mg PO Q8HR PRN #90 tablet 12/21/14 [Rx] Simethicone [Gas-X] 80 mg PO TID 02/04/15 [History] Diphenoxylate/Atropine [Lomotil 2.5 mg/0.025 mg] 1 each PO QID PRN 07/28/15 [ History] Vilazodone HCl [Viibryd] 60 mg PO DAILY 09/16/15 [History] Nut.tx.impaired Digest Fxn [Ensure Clear] 1 bottle PO BID #60 can 10/22/15 [Rx] Aspirin [Lo-Dose Aspirin EC] 81 mg PO DAILY 10/29/15 [History] Buprenorphine HCl [Subutex] 8 mg SL QAM 01/29/16 [History] Esomeprazole Magnesium [Nexium] 40 mg PO BID #60 capsule. 02/29/16 [Rx] Potassium Chloride [Klor-Con M15] 15 meq PO DAILY 05/02/16 [History] Zinc Acetate [Galzin] 25 mg PO DAILY 05/02/16 [History] Folic Acid 1 mg PO DAILY #90 tablet 06/13/16 [Rx] Buprenorphine HCl [Subutex] 4 mg SL QPM 10/03/16 [History] Disulfiram [Antabuse] 250 mg PO DAILY 10/03/16 [History] Lipase/Protease/Amylase [Creon Dr 36,000 Units Capsule] 3 cap PO TIDWM 10/03/16 [History] Allergies cephalexin Allergy (Verified 04/21/16 11:58) Rash clindamycin Allergy (Verified 04/21/16 11:58) Rash nalbuphine [From Nubain] Adverse Reaction (Verified 04/21/16 11:58) "didn't like the way it made me feel" All Systems PM: A 10-system review of systems was performed and is negative for pertinent findings except as documented above in the HPI. Review of systems: No dysuria, no chest pain, shortness of breath. Other systems out of the 10 reviewed were negative - Constitutional Vitals: Temp Pulse Resp BP Pulse Ox 98.2 F 108 16 127/81 99 10/03/16 17:23 10/03/16 21:00 10/03/16 21:00 10/03/16 21:00 10/03/16 21:00 General appearance: Present: cachectic, A&O X 3 (Very somnolent) - Head Head exam: Present: atraumatic, normocephalic - Eye Eye exam: Present: PERRL, conjuntiva pink, sclera anicteric Pupils: Present: PERRL - Neck Neck exam general surgery: Present: supple, trachea midline. Absent: lymphadenopathy - Respiratory Respiratory exam: Present: decreased breath sounds, CTAB. Absent: accessory muscle use, rales, rhonchi, wheezes - Cardiovascular Cardiovascular exam: Present: RRR, +S1, +S2. Absent: diastolic murmur, gallop, rubs, systolic murmur - GI/Abdominal GI/Abdominal exam: Present: normal bowel sounds, soft, tenderness (Mild epigastric tenderness), no peritoneal signs. Absent: distended - Extremities Exam Extremities exam: Present: warm, radial pulses palpable and symetrical. Absent : calf tenderness, cyanotic, pedal edema - Neurological Exam Neurological exam: Present: CN II-XII intact, oriented X3, no focal deficits. Absent: pronater drift, facial droop, speech deficit Additional comments: Tremors present - Skin Skin exam: Present: dry, intact Internal Med - H&P Results - Labs CBC & Chem 7: 10/03/16 18:01 10/03/16 18:01 Labs: Short CBC 10/03/16 Range/Units 18:01 WBC 5.0 (4.3-11.1) K/mcL Hgb 12.3 (11.5-15.4) g/dL Hct 37.1 (35.3-44.9) % Plt Count 235 (140-400) K/mcL Neutrophils # 3.2 (1.6-8.9) K/mcL BMP 10/03/16 18:01 Sodium 138 Potassium 3.0 L Chloride 104 Carbon Dioxide 19 BUN 6 L Creatinine 0.81 Glucose 268 H Calcium 8.5 L Liver Function 10/03/16 Range/Units 18:01 Total Bilirubin 0.8 (0.2-1.2) mg/dL Direct Bilirubin 0.4 (0.0-0.5) mg/dL AST 205 H (5-34) Units/L ALT 117 H (0-55) Units/L Alkaline Phosphatase 161 H (38-126) Units/L Albumin 2.9 L (3.5-5.0) g/dL
[2016-10-03] MEDS ORDERED: *HR* LORazepam 2 MG/ML VIAL IVP PRN ×2 (22:19)
[2016-10-03] MEDS: *HR* Buprenorphine HCl 8 MG TAB.SUBL SL SCH (22:48)
[2016-10-03] MEDS: Pantoprazole 40 MG VIAL IVP SCH (23:45)
[2016-10-04] MEDS: Vitamin B Complex/Vit C/Vit E 1 EACH TABLET PO SCH ×2 (05:23→08:38)
[2016-10-04] MEDS: Thiamine (B-1) 100 MG TABLET PO SCH ×2 (05:23→08:38)
[2016-10-04] MEDS: Insulin LISPRO 300 UNITS/3 ML VIAL SQ SCH ×6 (05:24→22:24)
[2016-10-04] MEDS: *HR* Heparin 5,000 UNIT/ML VIAL SQ SCH ×3 (05:48→22:28)
[2016-10-04 06:22] LABS: BUN/Creatinine Ratio 6 (6-26); Calcium 8.1 mg/dL (8.6-10.8); Carbon Dioxide 22 mEq/L (19-29); Chloride 109 mEq/L (98-109); Glucose 106 mg/dL (70-99); Osmolality,Calculated 285 (280-300); Potassium 3.7 mEq/L (3.5-4.5); Sodium 139 mEq/L (136-145); eGFR For African Americans > 60 (> 60); eGFR For Non-African Americans > 60 (> 60)
[2016-10-04 06:28] LABS: Blood Urea Nitrogen 3 mg/dL (7-20)
[2016-10-04 07:43] LABS: INR 1.1; Prothrombin Time 11.4 Seconds (9.4-12.1)
[2016-10-04 08:25] LABS: Hematocrit 33.4 % (35.3-44.9); Hemoglobin 11.2 g/dL (11.5-15.4); Immature Platelets 2.8 % (1.1-6.1); Mean Corpuscular HGB Conc 33.5 g/dL (31.6-35.5); Mean Corpuscular Hemoglobin 27.3 pg (28.0-33.3); Mean Corpuscular Volume 81.3 fL (83.0-100.0); Red Blood Count 4.11 M/mcL (3.82-4.97); Red Cell Distribution Width 23.3 % (11.5-14.5)
[2016-10-04] MEDS: *HR* Buprenorphine HCl 8 MG TAB.SUBL SL SCH ×2 (08:38→17:32)
[2016-10-04] MEDS: Folic Acid 1 MG TABLET PO SCH (08:38)
[2016-10-04] MEDS: Aspirin Enteric Coated 81 MG Tablet PO SCH (08:38)
[2016-10-04] MEDS: Pantoprazole 40 MG VIAL IVP SCH (08:38)
[2016-10-04] MEDS: VILAZODONE HCL PO SCH (08:39)
[2016-10-04] MEDS: Nicotine 21 MG PATCH.TD24 TD SCH (08:39)
[2016-10-04] MEDS: ADDERALL 10 MG PO SCH ×3 (08:39→22:29)
--- NOTE | 2016-10-04 12:22 | Internal Med Progress Note ---
Date of Encounter: 10/04/16 Time of Encounter: 12:22 - Assessment and plan (1) Alcohol withdrawal delirium Current Visit: Yes Status: Acute Assessment and plan: Continue Librium, CIWA protocol Fall and aspiration precautions high risk for DTs, seizures, respiratory failure and intubation Continue close monitoring (2) Anemia Current Visit: Yes Status: Chronic Assessment and plan: Mild, chronic, stable Qualifiers: Iron deficiency anemia type: inadequate dietary iron intake Qualified Code( s): D50.8 - Other iron deficiency anemias (3) Malnutrition Current Visit: Yes Status: Chronic Assessment and plan: Chronic, cahcetic, possibly from malnutrition and chronic pancreatitis (4) Alcoholism Current Visit: Yes Status: Chronic Assessment and plan: Chronic, management as in alcohol withdrawal (5) Cirrhosis Current Visit: Yes Status: Chronic Assessment and plan: Chronic, slightly abnormal LFTs No ascites this time No coagulopathy, INR is 1.1 Continue to monitor Qualifiers: Hepatic cirrhosis type: alcoholic cirrhosis Ascites presence: without ascites Qualified Code(s): K70.30 - Alcoholic cirrhosis of liver without ascites (6) Chronic pancreatitis Current Visit: Yes Status: Chronic Assessment and plan: Chronic Lipase is 200, unremarkable Continue multivitamins Patient with hyperglycemia, check A1C, monitor FS, ADA diet Qualifiers: Pancreatitis type: alcohol induced Qualified Code(s): K86.0 - Alcohol- induced chronic pancreatitis - Subjective Interval history: Seen and evaluated at bedside Patient with known hx of alcohol abuse with recurrent remissions and withdrawals Has been in and out of rehab twice this year She presented to the ER with symptoms of alcohol withdrawal At time of review, she is somnolent but rousable and makes meaningful conversation - Constitutional Vitals: Temp Pulse Resp BP Pulse Ox 98.1 F 91 16 119/94 99 10/04/16 11:40 10/04/16 11:40 10/04/16 11:40 10/04/16 11:40 10/04/16 11:40 General appearance: Present: cachectic, A&O X 3 (Very somnolent), pleasant - Head Head exam: Present: atraumatic, normocephalic - Eye Eye exam: Present: PERRL, conjuntiva pink, sclera anicteric Pupils: Present: PERRL - Neck Neck exam general surgery: Present: supple, trachea midline. Absent: lymphadenopathy - Respiratory Respiratory exam: Present: CTAB. Absent: accessory muscle use, rales, rhonchi, wheezes - Cardiovascular Cardiovascular exam: Present: RRR, +S1, +S2. Absent: diastolic murmur, gallop, rubs, systolic murmur - GI/Abdominal GI/Abdominal exam: Present: normal bowel sounds, soft, no peritoneal signs. Absent: distended, tenderness - Extremities Exam Extremities exam: Present: warm, radial pulses palpable and symetrical. Absent : calf tenderness, cyanotic, pedal edema - Neurological Exam Neurological exam: Present: CN II-XII intact, oriented X3, no focal deficits. Absent: pronater drift, facial droop, speech deficit - Skin Skin exam: Present: dry, intact Internal Medicine: Result - Labs CBC & Chem 7: 10/04/16 08:15 10/04/16 05:00 Labs: Short CBC 10/04/16 Range/Units 08:15 WBC 5.6 (4.3-11.1) K/mcL Hgb 11.2 L (11.5-15.4) g/dL Hct 33.4 L (35.3-44.9) % Plt Count 205 (140-400) K/mcL BMP 10/04/16 05:00 Sodium 139 Potassium 3.7 Chloride 109 Carbon Dioxide 22 BUN 3 L Creatinine 0.54 L Glucose 106 H Calcium 8.1 L - ABG Interpretation ABG results: PT/INR, D-dimer PT 11.4 Seconds (9.4-12.1) 10/04/16 07:14 Consult Discharge Plan - Plan Referrals: Villa Manzanares DO [Resident] - 10/13/16 11:00 am
[2016-10-04 12:43] LABS: Bacteria,Urine None Seen per hpf (None-Few); Bilirubin,Urine Negative (Negative); Blood,Urine Negative (Negative); Clarity,Urine Cloudy (Clear); Color,Urine Dark Yellow (Yellow); Glucose,Urine (UA) Normal (Normal); Hyaline Casts,Urine Few per lpf (None-Few); Ketones,Urine Negative (Negative); Leukocyte Esterase,Urine Negative (Negative); Nitrite,Urine Negative (Negative); Protein,Urine Trace mg/dL (Neg-Trace); Specific Gravity,Urine 1.022 (1.010-1.025); Squamous Epithelial Cell,Urine Many per lpf (None-Few); Urobilinogen,Urine Normal (Normal); WBC,Urine 0-3 per hpf (0-3)
[2016-10-04 12:53] LABS: Mucus,Urine Many (Few); Yeast,Urine Many per hpf (None Seen)
[2016-10-04] MEDS: *HR* LORazepam 2 MG/ML VIAL IVP PRN (20:28)
[2016-10-04] MEDS: OLANZapine 10 MG TAB.RAPDIS PO SCH (22:28)
[2016-10-05 07:06] LABS: Alanine Aminotransferase 61 Units/L (0-55); Alkaline Phosphatase 133 Units/L (38-126); Aspartate Amino Transferase 52 Units/L (5-34); BUN/Creatinine Ratio 6 (6-26); Bilirubin,Total 0.4 mg/dL (0.2-1.2); Calcium 8.4 mg/dL (8.6-10.8); Carbon Dioxide 21 mEq/L (19-29); Chloride 113 mEq/L (98-109); Globulin 2.4 g/dL (2.4-3.5); Glucose 76 mg/dL (70-99); Magnesium 1.4 mg/dL (1.6-2.6); Osmolality,Calculated 285 (280-300); Phosphorous 1.4 mg/dL (2.3-4.7); Potassium 4.5 mEq/L (3.5-4.5); Sodium 140 mEq/L (136-145); eGFR For African Americans > 60 (> 60); eGFR For Non-African Americans > 60 (> 60)
[2016-10-05 07:08] LABS: Albumin 2.3 g/dL (3.5-5.0); Blood Urea Nitrogen 3 mg/dL (7-20); Total Protein 4.7 g/dL (6.0-8.3)
[2016-10-05] MEDS ORDERED: Magnesium Sulfate 2 GM in D5% in Water 100 ML IVPB ONE ×2 (08:19)
[2016-10-05] MEDS: Vitamin B Complex/Vit C/Vit E 1 EACH TABLET PO SCH (08:32)
[2016-10-05] MEDS: Folic Acid 1 MG TABLET PO SCH (08:32)
[2016-10-05] MEDS: Aspirin Enteric Coated 81 MG Tablet PO SCH (08:32)
[2016-10-05] MEDS: *HR* Buprenorphine HCl 8 MG TAB.SUBL SL SCH ×2 (08:32→16:29)
[2016-10-05] MEDS: Thiamine (B-1) 100 MG TABLET PO SCH (08:32)
[2016-10-05] MEDS: *HR* Heparin 5,000 UNIT/ML VIAL SQ SCH ×3 (08:32→21:46)
[2016-10-05] MEDS: Nicotine 21 MG PATCH.TD24 TD SCH (08:32)
[2016-10-05] MEDS: Pantoprazole 40 MG VIAL IVP SCH (08:32)
[2016-10-05] MEDS: Insulin LISPRO 300 UNITS/3 ML VIAL SQ SCH ×4 (08:33→20:56)
[2016-10-05] MEDS: VILAZODONE HCL PO SCH (08:33)
[2016-10-05] MEDS: ADDERALL 10 MG PO SCH ×3 (08:33→20:34)
--- NOTE | 2016-10-05 11:26 | Internal Med Progress Note ---
Date of Encounter: 10/05/16 Time of Encounter: 11:26 - Assessment and plan (1) Alcohol withdrawal delirium Current Visit: Yes Status: Acute Assessment and plan: Continue Librium, CIWA protocol Decrease librium as patient is very somnolent and hasnt required more than 2mg Ativan in the past 24hrs Fall and aspiration precautions high risk for DTs, seizures, respiratory failure and intubation Continue close monitoring (2) Anemia Current Visit: Yes Status: Chronic Assessment and plan: Mild, chronic, stable Qualifiers: Iron deficiency anemia type: inadequate dietary iron intake Qualified Code( s): D50.8 - Other iron deficiency anemias (3) Malnutrition Current Visit: Yes Status: Chronic Assessment and plan: Chronic, cahcetic, possibly from malnutrition and chronic pancreatitis Continue pancreatic enzymes (4) Alcoholism Current Visit: Yes Status: Chronic Assessment and plan: Chronic, management as in alcohol withdrawal (5) Cirrhosis Current Visit: Yes Status: Chronic Assessment and plan: Chronic, slightly abnormal LFTs No ascites this time No coagulopathy, INR is 1.1 Continue to monitor Qualifiers: Hepatic cirrhosis type: alcoholic cirrhosis Ascites presence: without ascites Qualified Code(s): K70.30 - Alcoholic cirrhosis of liver without ascites (6) Chronic pancreatitis Current Visit: Yes Status: Chronic Assessment and plan: Chronic Lipase is 200, unremarkable Continue multivitamins Patient with hyperglycemia, check A1C, monitor FS, ADA diet Qualifiers: Pancreatitis type: alcohol induced Qualified Code(s): K86.0 - Alcohol- induced chronic pancreatitis (7) Hypomagnesemia Current Visit: Yes Status: Acute Assessment and plan: Hypomagnesemia, replaced, resume electrolyte protocol. High risk patient due to risk of prolonged QT and take arrhythmias due to electrolyte abnormalities. (8) Hypophosphatemia Current Visit: Yes Status: Acute Assessment and plan: Replaced. - Subjective Interval history: Seen and evaluated at bedside Patient with known hx of alcohol abuse with recurrent remissions and withdrawals , chronic pancreatitis Has been in and out of rehab twice this year She denies new complains On chart review, she has only received 2mg of ativan in the past 18 hrs she however remains slighlty somnolent and tachycardic LFT is improving She has hypophosphatemia and hypomagnessemia today - Constitutional Vitals: Temp Pulse Resp BP Pulse Ox 97.7 F 101 16 119/84 99 10/05/16 07:50 10/05/16 07:50 10/05/16 07:50 10/05/16 07:50 10/05/16 07:50 General appearance: Present: cachectic, A&O X 3 (Very somnolent), pleasant, no acute distress - Head Head exam: Present: atraumatic, normocephalic - Eye Eye exam: Present: PERRL, conjuntiva pink, sclera anicteric Pupils: Present: PERRL - Neck Neck exam general surgery: Present: supple, trachea midline. Absent: lymphadenopathy - Respiratory Respiratory exam: Present: CTAB. Absent: accessory muscle use, rales, rhonchi, wheezes - Cardiovascular Cardiovascular exam: Present: RRR, +S1, +S2. Absent: diastolic murmur, gallop, rubs, systolic murmur - GI/Abdominal GI/Abdominal exam: Present: normal bowel sounds, soft, no peritoneal signs. Absent: distended, tenderness - Extremities Exam Extremities exam: Present: warm, radial pulses palpable and symetrical. Absent : calf tenderness, cyanotic, pedal edema - Neurological Exam Neurological exam: Present: alert, CN II-XII intact, oriented X3, no focal deficits. Absent: pronater drift, facial droop, speech deficit - Skin Skin exam: Present: dry, intact Internal Medicine: Result - Labs CBC & Chem 7: 10/04/16 08:15 10/05/16 06:31 Labs: [facility] 10/05/16 06:31 Sodium 140 Potassium 4.5 Chloride 113 H Carbon Dioxide 21 BUN 3 L Creatinine 0.47 L Glucose 76 Calcium 8.4 L Liver Function 10/05/16 Range/Units 06:31 Total Bilirubin 0.4 (0.2-1.2) mg/dL AST 52 H (5-34) Units/L ALT 61 H (0-55) Units/L Alkaline Phosphatase 133 H (38-126) Units/L Albumin 2.3 L D (3.5-5.0) g/dL - ABG Interpretation ABG results: PT/INR, D-dimer PT 11.4 Seconds (9.4-12.1) 10/04/16 07:14 Consult Discharge Plan - Plan Referrals: Villa Manzanares DO [Resident] - 10/13/16 11:00 am
[2016-10-05] MEDS ORDERED: Calcium Gluconate 1,000 MG in D5% in Water 100 ML IVPB PRN (15:44)
[2016-10-05 16:41] LABS: Amphetamine Screen,Urine Negative ng/mL (Cutoff=1000); Barbiturate Screen,Urine Negative ng/mL (Cutoff=200); Benzodiazepines Screen,Urine Positive ng/mL (Cutoff=200); Cocaine Screen,Urine Negative ng/mL (Cutoff= 300); Opiate Screen,Urine Negative ng/mL (Cutoff=300); Phencyclidine Screen,Urine Negative ng/mL (Cutoff=25)
[2016-10-05 17:14] LABS: Cannabinoid Screen,Urine Negative ng/mL (Cutoff = 50)
[2016-10-05] MEDS: Ondansetron 4 MG/2 ML VIAL IVP PRN (20:33)
[2016-10-05] MEDS: OLANZapine 10 MG TAB.RAPDIS PO SCH (20:33)
[2016-10-05 20:54] LABS: Basophils % 0.4 %; Eosinophils # 0.3 K/mcL (0.0-0.6); Eosinophils % 3.8 %; Hematocrit 35.5 % (35.3-44.9); Hemoglobin 11.3 g/dL (11.5-15.4); Immature Granulocytes % 0.2 % (0-4); Lymphocytes # 2.7 K/mcL (0.6-4.6); Lymphocytes % 32.6 %; Mean Corpuscular HGB Conc 31.8 g/dL (31.6-35.5); Mean Corpuscular Hemoglobin 26.8 pg (28.0-33.3); Mean Corpuscular Volume 84.3 fL (83.0-100.0); Mean Platelet Volume 8.7 fL (9.4-12.4); Monocytes # 0.4 K/mcL (0.0-1.3); Platelet Count 153 K/mcL (140-400); Red Blood Count 4.21 M/mcL (3.82-4.97); Red Cell Distribution Width 23.8 % (11.5-14.5)
[2016-10-05 20:56] LABS: Neutrophils # 4.9 K/mcL (1.6-8.9)
[2016-10-05 21:12] LABS: BUN/Creatinine Ratio 14 (6-26); Blood Urea Nitrogen 7 mg/dL (7-20); Calcium 8.2 mg/dL (8.6-10.8); Carbon Dioxide 23 mEq/L (19-29); Chloride 109 mEq/L (98-109); Glucose 107 mg/dL (70-99); Osmolality,Calculated 284 (280-300); Potassium 4.5 mEq/L (3.5-4.5); Sodium 138 mEq/L (136-145); eGFR For African Americans > 60 (> 60); eGFR For Non-African Americans > 60 (> 60)
[2016-10-05 21:25] LABS: Dohle Bodies Present (Not Present); Platelet Estimate Normal (Normal)
[2016-10-05 21:26] LABS: Anisocytosis 1+ (Not Present)
[2016-10-05] MEDS: Magnesium Sulfate 2 GM in D5% in Water 100 ML IVPB PRN (22:23)
[2016-10-06] MEDS: *HR* Heparin 5,000 UNIT/ML VIAL SQ SCH ×3 (05:49→21:14)
[2016-10-06 06:02] LABS: BUN/Creatinine Ratio 15 (6-26); Blood Urea Nitrogen 7 mg/dL (7-20); Calcium 8.3 mg/dL (8.6-10.8); Carbon Dioxide 22 mEq/L (19-29); Chloride 108 mEq/L (98-109); Glucose 99 mg/dL (70-99); Osmolality,Calculated 280 (280-300); Potassium 4.8 mEq/L (3.5-4.5); Sodium 136 mEq/L (136-145); eGFR For African Americans > 60 (> 60); eGFR For Non-African Americans > 60 (> 60)
[2016-10-06] MEDS ORDERED: 0.9 % Sodium Chloride 1,000 ML IVC ONE (07:44)
[2016-10-06] MEDS: Magnesium Oxide 400 MG TABLET PO SCH (09:04)
[2016-10-06] MEDS: Vitamin B Complex/Vit C/Vit E 1 EACH TABLET PO SCH (09:04)
[2016-10-06] MEDS: Thiamine (B-1) 100 MG TABLET PO SCH (09:04)
[2016-10-06] MEDS: Aspirin Enteric Coated 81 MG Tablet PO SCH (09:05)
[2016-10-06] MEDS: Nicotine 21 MG PATCH.TD24 TD SCH (09:05)
[2016-10-06] MEDS: *HR* Buprenorphine HCl 8 MG TAB.SUBL SL SCH (09:05)
[2016-10-06] MEDS: Folic Acid 1 MG TABLET PO SCH (09:05)
[2016-10-06] MEDS: Insulin LISPRO 300 UNITS/3 ML VIAL SQ SCH ×4 (09:07→21:14)
[2016-10-06] MEDS: VILAZODONE HCL PO SCH (09:08)
[2016-10-06] MEDS: ADDERALL 10 MG PO SCH ×3 (09:08→21:14)
--- NOTE | 2016-10-06 09:46 | Internal Med Progress Note ---
Date of Encounter: 10/06/16 Time of Encounter: 09:45 - Assessment and plan (1) Alcohol withdrawal delirium Current Visit: Yes Status: Acute Assessment and plan: Continue Librium, Discontinue the CIWA protocol Patient has not received ativan since 10/04 Continue librium at current dose Continue to monitor electrolytes (2) Anemia Current Visit: Yes Status: Chronic Assessment and plan: Mild, chronic, stable Qualifiers: Iron deficiency anemia type: unspecified iron deficiency Qualified Code(s) : D50.9 - Iron deficiency anemia, unspecified (3) Malnutrition Current Visit: Yes Status: Chronic Assessment and plan: Chronic, cachectic, possibly from malnutrition and chronic pancreatitis Continue pancreatic enzymes, ensure (4) Alcoholism Current Visit: Yes Status: Chronic Assessment and plan: Chronic, management as in alcohol withdrawal (5) Cirrhosis Current Visit: Yes Status: Chronic Assessment and plan: Chronic, slightly abnormal LFTs No ascites this time No coagulopathy, INR is 1.1 Continue to monitor Qualifiers: Hepatic cirrhosis type: alcoholic cirrhosis Ascites presence: without ascites Qualified Code(s): K70.30 - Alcoholic cirrhosis of liver without ascites (6) Chronic pancreatitis Current Visit: Yes Status: Chronic Assessment and plan: Chronic Lipase is 200, unremarkable Continue multivitamins Patient with hyperglycemia, A1C 5.0 in 09/25/16 Qualifiers: Pancreatitis type: alcohol induced Qualified Code(s): K86.0 - Alcohol- induced chronic pancreatitis (7) Hypomagnesemia Current Visit: Yes Status: Acute Assessment and plan: Hypomagnesemia, replaced, magnessium normal today (8) Hypophosphatemia Current Visit: Yes Status: Acute Assessment and plan: Replaced. - Subjective Interval history: Seen and evaluated at bedside Patient with known hx of alcohol abuse with recurrent remissions and withdrawals , chronic pancreatitis Has been in and out of rehab twice this year She denies new complains She is so much more awake and alert this morning She remains tahcycardic, possibly dehydrated Started on IVF She reports not being on suboxone at home and wants us to discontinue, she self weaned her self because she could not afford it - Constitutional Vitals: Temp Pulse Resp BP Pulse Ox 98.0 F 114 14 113/84 100 10/06/16 07:43 10/06/16 07:43 10/06/16 07:43 10/06/16 07:43 10/06/16 07:43 General appearance: Present: cachectic, A&O X 3, pleasant, no acute distress - Head Head exam: Present: atraumatic, normocephalic - Eye Eye exam: Present: PERRL, conjuntiva pink, sclera anicteric Pupils: Present: PERRL - Neck Neck exam general surgery: Present: supple, trachea midline. Absent: lymphadenopathy - Respiratory Respiratory exam: Present: CTAB. Absent: accessory muscle use, rales, rhonchi, wheezes - Cardiovascular Cardiovascular exam: Present: RRR, +S1, +S2. Absent: diastolic murmur, gallop, rubs, systolic murmur - GI/Abdominal GI/Abdominal exam: Present: normal bowel sounds, soft, no peritoneal signs. Absent: distended, tenderness - Extremities Exam Extremities exam: Present: warm, radial pulses palpable and symetrical. Absent : calf tenderness, cyanotic, pedal edema - Neurological Exam Neurological exam: Present: alert, CN II-XII intact, oriented X3, no focal deficits. Absent: pronater drift, facial droop, speech deficit - Skin Skin exam: Present: dry, intact Internal Medicine: Result - Labs CBC & Chem 7: 10/05/16 20:42 10/06/16 05:30 Labs: Short CBC 10/05/16 Range/Units 20:42 WBC 8.4 (4.3-11.1) K/mcL Hgb 11.3 L (11.5-15.4) g/dL Hct 35.5 (35.3-44.9) % Plt Count 153 (140-400) K/mcL Neutrophils # 4.9 (1.6-8.9) K/mcL BMP 10/05/16 10/06/16 20:42 05:30 Sodium 138 136 Potassium 4.5 4.8 H Chloride 109 108 Carbon Dioxide 23 22 BUN 7 7 Creatinine 0.50 L 0.48 L Glucose 107 H 99 Calcium 8.2 L 8.3 L - ABG Interpretation ABG results: PT/INR, D-dimer PT 11.4 Seconds (9.4-12.1) 10/04/16 07:14 Consult Discharge Plan - Plan Referrals: Villa Manzanares DO [Resident] - 10/13/16 11:00 am
[2016-10-06] MEDS: 0.9 % Sodium Chloride 1,000 ML IVC SCH (10:15)
[2016-10-06] MEDS ORDERED: *HR* OxyCODONE/APAP 7.5/325 TABLET PO PRN (12:07)
[2016-10-06] MEDS: *HR* OxyCODONE Immed Rel 5 MG TABLET PO PRN (15:44)
[2016-10-06 17:27] LABS: BUN/Creatinine Ratio 15 (6-26); Blood Urea Nitrogen 7 mg/dL (7-20); Calcium 7.9 mg/dL (8.6-10.8); Carbon Dioxide 20 mEq/L (19-29); Chloride 112 mEq/L (98-109); Glucose 128 mg/dL (70-99); Osmolality,Calculated 286 (280-300); Potassium 5.1 mEq/L (3.5-4.5); Sodium 138 mEq/L (136-145); eGFR For African Americans > 60 (> 60); eGFR For Non-African Americans > 60 (> 60)
[2016-10-06] MEDS: OLANZapine 10 MG TAB.RAPDIS PO SCH (21:14)
[2016-10-06] MEDS: Ondansetron 4 MG/2 ML VIAL IVP PRN (21:17)
[2016-10-06] MEDS: *HR* LORazepam 2 MG/ML VIAL IVP PRN (22:44)
[2016-10-07 05:29] LABS: Magnesium 1.4 mg/dL (1.6-2.6); Phosphorous 3.8 mg/dL (2.3-4.7)
[2016-10-07] MEDS: *HR* Heparin 5,000 UNIT/ML VIAL SQ SCH ×2 (06:38→16:00)
[2016-10-07] MEDS: 0.9 % Sodium Chloride 1,000 ML IVC SCH (06:39)
[2016-10-07] MEDS: Insulin LISPRO 300 UNITS/3 ML VIAL SQ SCH ×2 (07:45→12:46)
[2016-10-07] MEDS: Vitamin B Complex/Vit C/Vit E 1 EACH TABLET PO SCH (08:02)
[2016-10-07] MEDS: Aspirin Enteric Coated 81 MG Tablet PO SCH (08:02)
[2016-10-07] MEDS: Folic Acid 1 MG TABLET PO SCH (08:03)
[2016-10-07] MEDS: Nicotine 21 MG PATCH.TD24 TD SCH (08:03)
[2016-10-07] MEDS: Magnesium Oxide 400 MG TABLET PO SCH (08:03)
[2016-10-07] MEDS: *HR* OxyCODONE Immed Rel 5 MG TABLET PO PRN ×2 (08:03→13:29)
[2016-10-07] MEDS: Thiamine (B-1) 100 MG TABLET PO SCH (08:03)
[2016-10-07] MEDS: ADDERALL 10 MG PO SCH ×2 (08:04→15:52)
[2016-10-07] MEDS: VILAZODONE HCL PO SCH (08:04)
[2016-10-07] MEDS: Magnesium Sulfate 2 GM in D5% in Water 100 ML IVPB PRN (08:59)
[2016-10-07 11:06] LABS: BUN/Creatinine Ratio 11 (6-26); Calcium 8.5 mg/dL (8.6-10.8); Carbon Dioxide 25 mEq/L (19-29); Chloride 105 mEq/L (98-109); Glucose 99 mg/dL (70-99); Osmolality,Calculated 283 (280-300); Potassium 4.2 mEq/L (3.5-4.5); Sodium 138 mEq/L (136-145); eGFR For African Americans > 60 (> 60); eGFR For Non-African Americans > 60 (> 60)
[2016-10-07 11:07] LABS: Blood Urea Nitrogen 5 mg/dL (7-20)
--- NOTE | 2016-10-07 12:07 | Discharge Summary ---
Date of Encounter: 10/07/16 Time of Encounter: 12:07 - Discharge Diagnosis (1) Alcohol withdrawal delirium Priority: Primary Status: Acute (2) Anemia Priority: Secondary Status: Chronic Qualifiers: Iron deficiency anemia type: unspecified iron deficiency Qualified Code(s) : D50.9 - Iron deficiency anemia, unspecified (3) Malnutrition Priority: Secondary Status: Chronic (4) Alcoholism Priority: Secondary Status: Chronic (5) Cirrhosis Priority: Secondary Status: Chronic Qualifiers: Hepatic cirrhosis type: alcoholic cirrhosis Ascites presence: without ascites Qualified Code(s): K70.30 - Alcoholic cirrhosis of liver without ascites (6) Chronic pancreatitis Priority: Secondary Status: Chronic Qualifiers: Pancreatitis type: alcohol induced Qualified Code(s): K86.0 - Alcohol- induced chronic pancreatitis (7) Hypomagnesemia Priority: Primary Status: Acute (8) Hypophosphatemia Priority: Secondary Status: Resolved - Discharge Medications Home Medications: CloNIDine HCl 0.1 mg PO TID PRN 12/20/14 [History] Cyanocobalamin (B-12) [Vitamin B12] 1 ml IJ QMONTH 12/20/14 [History] Ergocalciferol (VITAMIN D2) [Drisdol (50,000 Unit)] 50,000 unit PO Q14D [History] OLANZapine [Zyprexa] 20 mg PO HS 12/20/14 [History] Sucralfate [Carafate] 1 gm PO QIDAC 12/20/14 [History] Albuterol Sulfate [Albuterol Inhaler] 2 puff IH Q4HR PRN #1 inhaler 12/21/14 [Rx ] Promethazine [Phenergan] 25 mg PO Q8HR PRN #90 tablet 12/21/14 [Rx] Simethicone [Gas-X] 80 mg PO TID 02/04/15 [History] Diphenoxylate/Atropine [Lomotil 2.5 mg/0.025 mg] 1 each PO QID PRN 07/28/15 [ History] Nut.tx.impaired Digest Fxn [Ensure Clear] 1 bottle PO BID #60 can 10/22/15 [Rx] Aspirin [Lo-Dose Aspirin EC] 81 mg PO DAILY 10/29/15 [History] Esomeprazole Magnesium [Nexium] 40 mg PO BID #60 capsule.dr 02/29/16 [Rx] Potassium Chloride [Klor-Con M15] 15 meq PO DAILY 05/02/16 [History] Zinc Acetate [Galzin] 25 mg PO DAILY 05/02/16 [History] Folic Acid 1 mg PO DAILY #90 tablet 06/13/16 [Rx] Lipase/Protease/Amylase [Virgilio Ramos 36,000 Units Capsule] 3 cap PO TIDWM 10/03/16 [History] Chlordiazepoxide [Librium] 25 mg PO TID capsule 10/07/16 [Rx] Magnesium Oxide [Mag-Ox] 400 mg PO DAILY tablet 10/07/16 [Rx] Nicotine Patch [Nicoderm] 21 mg TD DAILY patch.td24 10/07/16 [Rx] Thiamine (B-1) [Vitamin B-1] 100 mg PO DAILY tablet 10/07/16 [Rx] Vitamin B Complex/Vit C/Vit E [Stresstab] 1 each PO DAILY tablet 10/07/16 [Rx] Allergies/Adverse Reactions: Allergies cephalexin Allergy (Verified 04/21/16 11:58) Rash clindamycin Allergy (Verified 04/21/16 11:58) Rash nalbuphine [From Nubain] Adverse Reaction (Verified 04/21/16 11:58) "didn't like the way it made me feel" Date of admission: 10/03/16 22:44 Primary care physician: Jacky Farley DO Consults: 10/04/16 12:53 Consult to Weaving Inspector [CONS] Routine Reason for SW Consult: Discharge planning. 10/05/16 18:15 Consult to Invasive Line Access Team [CONS] Routine Reason for Consult: limited access Line Type: EPIV Discharging clinician: Kiko Tomas Anticipated date of discharge: 10/07/16 - Patient Status Disposition: Transfer SNF Condition: Fair Functional capacity at discharge: independent ambulation Overall status at discharge: patient is progressing back to baseline - Discharge Instructions Follow Up With: Villa Manzanares DO [Resident] - 10/13/16 11:00 am - Diet and Activity Activity: as per physical therapy Diet: low salt diet, other (Ensure tid) Interval History: See below Hospital course: Ms. Abdi is a 41 year old female with multiple co-morbidities including multipel GI surgeries following gastric bypass for morbid obesity, malnutrition , alcohol abuse, opiate dependence on suboxone, alchol abuse with recurrent remissions She self presented to the ER with complains of withdrawal after not having drank alcohol for 2 days , Patient had been taking Subutex and was supposed to be started on Limbitrol, she took only one dose of Limbitrol on day of presentation but unfortunately became symptomatic, has been shaking and extremely anxious. Her heart rate today is 115 blood pressure 155/75 potassium is 3 glucose 268 AST 205 ALT 117 lipase 212 no alcohol in her system. She was somnolent on exam on the day of admission and had received Ativan in the ER She was admitted for alcohol withdrawal and started on the alcohol withdrawal with multiple replacements for hypomagnessemia, hypophosphatemiua, hypokalemia She was also started on Librium at 50mg qid, which was tapered to 25mg po tid as patient improved She has chronic pancreatitis and Lipase was slighlty elevated, no acute abdomen Patient reported she had self weaned herself from Suboxone, and was no longer taking same She has PUD and NSAIDs is not recommended She has improved in her vital signs and has not been requiring IV Ativan She is stable to be discharged to SNF for physical therapy and on her current meds Patient will need to be tapered off librium as she improves Follow up with PCP and microbiology director upon discharge 3 minutes spent on tobacco cessation Other chronic medical conditions remained stable - Time Spent with Patient Total time spent providing and/or coordinating discharge services: Less than 30 minutes - Constitutional Vitals: Temp Pulse Resp BP Pulse Ox 97.6 F 96 10 106/88 100 10/07/16 08:50 10/07/16 08:50 10/07/16 08:50 10/07/16 08:50 10/07/16 08:50 General appearance: Present: cachectic, A&O X 3, pleasant, no acute distress - Head Head exam: Present: atraumatic, normocephalic - Eye Eye exam: Present: PERRL, conjuntiva pink, sclera anicteric Pupils: Present: PERRL - Neck Neck exam general surgery: Present: supple, trachea midline. Absent: lymphadenopathy - Respiratory Respiratory exam: Present: CTAB. Absent: accessory muscle use, rales, rhonchi, wheezes - Cardiovascular Cardiovascular exam: Present: RRR, +S1, +S2. Absent: diastolic murmur, gallop, rubs, systolic murmur - GI/Abdominal GI/Abdominal exam: Present: normal bowel sounds, soft, no peritoneal signs. Absent: distended, tenderness - Extremities Exam Extremities exam: Present: warm, radial pulses palpable and symetrical. Absent : calf tenderness, cyanotic, pedal edema - Neurological Exam Neurological exam: Present: alert, CN II-XII intact, oriented X3, no focal deficits. Absent: pronater drift, facial droop, speech deficit - Skin Skin exam: Present: dry, intact
--- NOTE | 2016-10-07 12:07 | Physician Discharge Referral ---
ExtendedCare Referral Info Transfer To: [place] Provider in Charge after Transfer: PCP Institutional Level of Care: Skilled - Diagnosis (1) Alcohol withdrawal delirium Priority: Primary Status: Acute (2) Anemia Priority: Secondary Status: Chronic (3) Malnutrition Priority: Secondary Status: Chronic (4) Alcoholism Priority: Secondary Status: Chronic (5) Cirrhosis Priority: Secondary Status: Chronic (6) Chronic pancreatitis Priority: Secondary Status: Chronic (7) Hypomagnesemia Priority: Primary Status: Acute (8) Hypophosphatemia Priority: Primary Status: Resolved Prognosis: Fair Aware of Diagnosis: Patient Aware of Prognosis: Patient - Transfer Medications Home Medications: CloNIDine HCl 0.1 mg PO TID PRN 12/20/14 [History] Cyanocobalamin (B-12) [Vitamin B12] 1 ml IJ QMONTH 12/20/14 [History] Ergocalciferol (VITAMIN D2) [Drisdol (50,000 Unit)] 50,000 unit PO Q14D [History] OLANZapine [Zyprexa] 20 mg PO HS 12/20/14 [History] Sucralfate [Carafate] 1 gm PO QIDAC 12/20/14 [History] Albuterol Sulfate [Albuterol Inhaler] 2 puff IH Q4HR PRN #1 inhaler 12/21/14 [Rx ] Promethazine [Phenergan] 25 mg PO Q8HR PRN #90 tablet 12/21/14 [Rx] Simethicone [Gas-X] 80 mg PO TID 02/04/15 [History] Diphenoxylate/Atropine [Lomotil 2.5 mg/0.025 mg] 1 each PO QID PRN 07/28/15 [ History] Nut.tx.impaired Digest Fxn [Ensure Clear] 1 bottle PO BID #60 can 10/22/15 [Rx] Aspirin [Lo-Dose Aspirin EC] 81 mg PO DAILY 10/29/15 [History] Esomeprazole Magnesium [Nexium] 40 mg PO BID #60 capsule.dr 02/29/16 [Rx] Potassium Chloride [Klor-Con M15] 15 meq PO DAILY 05/02/16 [History] Zinc Acetate [Galzin] 25 mg PO DAILY 05/02/16 [History] Folic Acid 1 mg PO DAILY #90 tablet 06/13/16 [Rx] Lipase/Protease/Amylase [Virgilio Ramos 36,000 Units Capsule] 3 cap PO TIDWM 10/03/16 [History] Chlordiazepoxide [Librium] 25 mg PO TID capsule 10/07/16 [Rx] Magnesium Oxide [Mag-Ox] 400 mg PO DAILY tablet 10/07/16 [Rx] Nicotine Patch [Nicoderm] 21 mg TD DAILY patch.td24 10/07/16 [Rx] Thiamine (B-1) [Vitamin B-1] 100 mg PO DAILY tablet 10/07/16 [Rx] Vitamin B Complex/Vit C/Vit E [Stresstab] 1 each PO DAILY tablet 10/07/16 [Rx] Allergies/Adverse Reactions: Allergies cephalexin Allergy (Verified 04/21/16 11:58) Rash clindamycin Allergy (Verified 04/21/16 11:58) Rash nalbuphine [From Nubain] Adverse Reaction (Verified 04/21/16 11:58) "didn't like the way it made me feel" - Respiratory Orders Smoking Cessation: Smoking cessation has been advised. For more information, call the [place] Tobacco Quit Line at 2-819-NLNG-NOW. - Advance Directives Code Status: Full Code - Mobility Orders Ambulate - Rehabiliation Orders Rehab Potential: Fair Rehab Orders: Evaluation for Physical Therapy - Diet Orders Cardiac CERTIFICATION: I certify that the transfer of the above named patient to an Extended Care Facility is necessary for the continuing treatment of the diagnosis listed. The above information is true and accurate reflection of patient's current condition. Confidential - Redisclosure prohibited without a patient's written consent.
[2016-10-07] MEDS ORDERED: Magnesium Sulfate 2 GM in D5% in Water 100 ML IVPB ONE (12:45)
[2016-10-07] MEDS: Ondansetron 4 MG/2 ML VIAL IVP PRN (13:29)
[2016-10-07 16:15] VITALS: BP 121/86
== END 2016-10-07 17:28 | DRG 897 ==
LOC: EMEROO 17:20 → 2NNU 22:44
PROVIDERS: ADMIT Internal Medicine; ATTEND Internal Medicine

== ENCOUNTER 2016-10-16 19:12 | Inpatient (IN) ==
[2016-10-16] MEDS ORDERED: 0.9 % Sodium Chloride 1,000 ML IVC ONE (19:22)
--- NOTE | 2016-10-16 19:31 | Emergency Department Note ---
Disposition Clinical Impression: EKG abnormality, Alcohol intoxication, Alcohol abuse Disposition: Admitted As Inpatient Condition: Good Referrals: NO,PCP [Non-Partnered Physician] - Forms: ED Satisfaction Letter Time of Disposition: 21:08 General Adult HPI - General Chief complaint: ED Alcohol Abuse Stated complaint: intox/tremors Time Seen by Provider: 10/16/16 19:21 Limitations: no limitations Nursing Notes Reviewed: Yes Vital Signs Reviewed: Yes - History of Present Illness HPI Narrative: Female patient presented to the emergency department by EMS. She states she thinks she is going through alcohol withdrawal. She recently signed herself out of [facility] of a senior care for alcohol withdrawal and started drinking again. She is unaware of the last time she drank. She is also complaining of abdominal pain. Pain Scale: 10 - Related Data Home Medications Medication Instructions Recorded Confirmed CloNIDine HCl 0.1 mg PO TID PRN 12/20/14 10/03/16 Cyanocobalamin (B-12) [Vitamin B12] 1 ml IJ QMONTH 12/20/14 10/03/16 Ergocalciferol (VITAMIN D2) 50,000 unit PO Q14D 12/20/14 10/03/16 [Drisdol (50,000 Unit)] OLANZapine [Zyprexa] 20 mg PO HS 12/20/14 10/03/16 Sucralfate [Carafate] 1 gm PO QIDAC 12/20/14 10/03/16 Simethicone [Gas-X] 80 mg PO TID 02/04/15 10/03/16 Diphenoxylate/Atropine [Lomotil 1 each PO QID PRN 07/28/15 10/03/16 2.5 mg/0.025 mg] Aspirin [Lo-Dose Aspirin EC] 81 mg PO DAILY 10/29/15 10/03/16 Potassium Chloride [Klor-Con M15] 15 meq PO DAILY 05/02/16 10/03/16 Zinc Acetate [Galzin] 25 mg PO DAILY 05/02/16 10/03/16 Lipase/Protease/Amylase [Creon Dr 3 cap PO TIDWM 10/03/16 10/03/16 36,000 Units Capsule] Previous Rx's Medication Instructions Recorded Albuterol Sulfate [Albuterol 2 puff IH Q4HR PRN #1 inhaler 12/21/14 Inhaler] Promethazine [Phenergan] 25 mg PO Q8HR PRN #90 tablet 12/21/14 Nut.tx.impaired Digest Fxn [Ensure 1 bottle PO BID #60 can 10/22/15 Clear] Esomeprazole Magnesium [Nexium] 40 mg PO BID #60 capsule. 02/29/16 Folic Acid 1 mg PO DAILY #90 tablet 06/13/16 Chlordiazepoxide [Librium] 25 mg PO TID capsule 10/07/16 Magnesium Oxide [Mag-Ox] 400 mg PO DAILY tablet 10/07/16 Nicotine Patch [Nicoderm] 21 mg TD DAILY patch.td24 10/07/16 Thiamine (B-1) [Vitamin B-1] 100 mg PO DAILY tablet 10/07/16 Vitamin B Complex/Vit C/Vit E 1 each PO DAILY tablet 10/07/16 [Stresstab] Chlordiazepoxide [Librium] 25 mg PO TID #24 capsule 10/08/16 Allergies Allergy/AdvReac Type Severity Reaction Status Date / Time cephalexin Allergy Rash Verified 10/10/16 17:08 clindamycin Allergy Rash Verified 10/10/16 17:08 nalbuphine [From Nubain] AdvReac "didn't Verified 10/10/16 17:08 like the way it made me feel" All systems ED: reviewed and negative except as stated. Constitutional: Denies: fever, chills Cardiovascular: Denies: chest pain, palpitations, syncope Respiratory: Denies: cough, dyspnea Gastrointestinal: Reports: abdominal pain, vomiting (One episode.). Denies: nausea, diarrhea, hematemesis, melena, hematochezia Genitourinary: Denies: urgency, dysuria, frequency, hematuria Musculoskeletal: Denies: back pain, neck pain, joint swelling Integumentary: Denies: rash, abrasion Neurological: Denies: headache, weakness, numbness Psychiatric: Denies: anxiety, depression, suicidal thoughts, homicidal thoughts , auditory hallucinations, visual hallucinations Past Medical History - Past Medical History Attestation: Yes The following information was validated with the patient. Medical history: Reports: cirrhosis, diabetes, GERD, hyperlipidemia, hypertension, liver disease, other Surgical history: Reports: appendectomy, cholecystectomy, herniorrhaphy, hysterectomy, other Psychiatric history: Reports: ADHD, bipolar, prior suicide attempt, previous psychiatric hospitalization TAX ECONOMIST history: Reports: no TAX ECONOMIST history - Social History Smoking Status: Current every day smoker Smokeless Tobacco Status: No Alcohol use: Reports: heavy, recent Drug use: Reports: none, opiates Physical Exam - General Limitations: no limitations General appearance: alert, in no apparent distress, appears intoxicated - Head Head exam: atraumatic, normocephalic, normal inspection - Eye Eye exam: Present: normal appearance, PERRL, EOMI. Absent: scleral icterus - ENT ENT exam: normal exam, normal oropharynx, mucous membranes moist - Neck Neck exam: Present: normal inspection, full ROM, trachea midline. Absent: tenderness, meningismus, lymphadenopathy - Chest Chest inspection: Present: normal inspection, symmetric chest wall rise. Absent : tenderness, rash, abscess - Respiratory Respiratory exam: Present: normal lung sounds bilaterally. Absent: respiratory distress, wheezes, accessory muscle use - Cardiovascular Cardiovascular exam: Present: normal rhythm, tachycardia, normal heart sounds - Abdominal Exam Abdominal exam: Present: soft, tenderness (Diffusely. She jumps before I even placed by hand on her abdomen.), guarding, normal bowel sounds. Absent: distention, rebound, rigidity, organomegaly - Extremities Exam Extremities exam: Present: normal inspection, full ROM, normal capillary refill. Absent: tenderness, pedal edema - Back Exam Back exam: Present: normal inspection, full ROM. Absent: tenderness, CVA tenderness (R), CVA tenderness (L) - Neurological Exam Neurological exam: Present: alert, oriented X3 - Psychiatric Psychiatric exam: Present: normal affect, normal mood. Absent: homicidal ideation, suicidal ideation - Skin Skin exam: Present: warm, dry, intact, normal color. Absent: rash, cyanosis, diaphoresis, erythema, pallor, mottled Course Course Narrative: Patient found intoxicated in a parking lot. She is requesting alcohol detoxification as an inpatient. She reports she does have a history of pancreatitis. She reports one episode of vomiting today after she drank some sweet tea. She states this was from all the sugar. She states she also has a history of cirrhosis. She recently left a senior care [place] where she was detoxing. She is requesting to be detoxed again. She is alert and aware of where she is. She knows her name and the date. She states that she drank alcohol today but does not know how much or when. She is able to transfer to the bed from the EMS cot. Her lung sounds are clear heart tones are normal. She states she feels like her heart is going fast. She is slightly tachycardic while she is here. We will do basic lab workup on patient get a UA. On abdominal exam she jumps before I even touch her abdomen. She has no signs of edema to her extremities. - Reevaluation(s) Reevaluation #1: Patient complaining of a burning sensation from her throat through her abdomen. We will provide her with the GI cocktail. She is agreeable to this at this time. She is very anxious in bed at this time. Her father is present currently. He states she has been drinking a lot of alcohol today. She is concerned that she is with drawing. She does not have pancreatitis. She does have EKG changes from her previous EKG which was done at the beginning of September. She has some ST depressions in leads V3. We will get a troponin on the patient. Likely admit the patient to the hospital for her new EKG changes as well as alcohol detoxification. Time: 20:36 - Consultations Consultation #1: Spoke with the hospitalist. Explain to him that the EKG was abnormal just from 6 days ago. When he did keep the patient overnight for cardiac clearance and observation. If all of her cardiac clearance comes back okay and she still wishes to be placed in an alcohol rehabilitation facility she could be transferred back to the senior care or she could be placed at [facility] Vital Signs Temperature 98.4 F 10/16/16 19:15 Pulse Rate 131 10/16/16 19:15 Respiratory Rate 22 10/16/16 19:15 Blood Pressure 110/62 10/16/16 19:15 O2 Sat by Pulse Oximetry 97 10/16/16 19:15 Temperature 98.4 F 10/16/16 19:15 Pulse Rate 131 10/16/16 19:15 Respiratory Rate 22 10/16/16 19:15 Blood Pressure 110/62 10/16/16 19:15 O2 Sat by Pulse Oximetry 97 10/16/16 19:15 Oxygen Delivery Oxygen Delivery Room Air Medical Decision Making - Medical Records Medical records reviewed: Yes I reviewed the patient's medical records. - Lab Data Lab results reviewed: Yes I reviewed the patient's lab results. Result diagrams: 10/16/16 19:36 10/16/16 19:36 Lab Results 10/16/16 10/16/16 10/16/16 Range/Units 19:36 19:36 19:36 WBC 8.3 D (4.3-11.1) K/mcL RBC 5.19 H (3.82-4.97) M/mcL Hgb 14.6 D (11.5-15.4) g/dL Hct 44.5 (35.3-44.9) % MCV 85.7 (83.0-100.0) fL MCH 28.1 (28.0-33.3) pg MCHC 32.8 (31.6-35.5) g/dL RDW 25.2 H (11.5-14.5) % Plt Count 847 H D (140-400) K/mcL MPV 8.6 L (9.4-12.4) fL Immature Gran % 1.0 (0-4) % Seg Neutrophils % 68.2 % Lymphocytes % 26.9 % Monocytes % 3.1 % Eosinophils % 0.2 % Basophils % 0.6 % Neutrophils # 5.7 (1.6-8.9) K/mcL Lymphocytes # 2.2 (0.6-4.6) K/mcL Monocytes # 0.3 (0.0-1.3) K/mcL Eosinophils # 0.0 (0.0-0.6) K/mcL Basophils # 0.1 (0.0-0.2) K/mcL Reactive Lymphocytes Present A (Not Present) Platelet Estimate Marked Increase H (Normal) Immature Plt Fraction 1.8 (1.1-6.1) % Anisocytosis 3+ A (Not Present) Microcytosis Present A (Not Present) Sodium 138 (136-145) mEq/L Potassium 3.4 L (3.5-4.5) mEq/L Chloride 105 (98-109) mEq/L Carbon Dioxide 17 L (19-29) mEq/L BUN 7 (7-20) mg/dL Creatinine 0.74 (0.57-1.11) mg/dL Est GFR ( Amer) > 60 (> 60) Est GFR (Non-Af Amer) > 60 (> 60) BUN/Creatinine Ratio 9 (6-26) Glucose 267 H (70-99) mg/dL Calculated Osmolality 293 (280-300) Calcium 8.0 L (8.6-10.8) mg/dL Total Bilirubin 0.6 (0.2-1.2) mg/dL Direct Bilirubin 0.3 (0.0-0.5) mg/dL Indirect Bilirubin 0.3 (0.0-1.2) mg/dL AST 59 H (5-34) Units/L ALT 45 (0-55) Units/L Alkaline Phosphatase 194 H (38-126) Units/L Troponin I (0-0.03) ng/mL Serum Total Protein 6.3 (6.0-8.3) g/dL Albumin 3.1 L (3.5-5.0) g/dL Globulin 3.2 (2.4-3.5) g/dL Albumin/Globulin Ratio 1.0 L (1.1-2.2) Lipase 8 (8-78) Units/L Salicylates < 5.0 L (15-30) mg/dL Acetaminophen < 1.0 L (10-30) mcg/mL Ethyl Alcohol 177 H (0-10) mg/dL 10/16/ Range/Units 19:36 WBC (4.3-11.1) K/mcL RBC (3.82-4.97) M/mcL Hgb (11.5-15.4) g/dL Hct (35.3-44.9) % MCV (83.0-100.0) fL MCH (28.0-33.3) pg MCHC (31.6-35.5) g/dL RDW (11.5-14.5) % Plt Count (140-400) K/mcL MPV (9.4-12.4) fL Immature Gran % (0-4) % Seg Neutrophils % % Lymphocytes % % Monocytes % % Eosinophils % % Basophils % % Neutrophils # (1.6-8.9) K/mcL Lymphocytes # (0.6-4.6) K/mcL Monocytes # (0.0-1.3) K/mcL Eosinophils # (0.0-0.6) K/mcL Basophils # (0.0-0.2) K/mcL Reactive Lymphocytes (Not Present) Platelet Estimate (Normal) Immature Plt Fraction (1.1-6.1) % Anisocytosis (Not Present) Microcytosis (Not Present) Sodium (136-145) mEq/L Potassium (3.5-4.5) mEq/L Chloride (98-109) mEq/L Carbon Dioxide (19-29) mEq/L BUN (7-20) mg/dL Creatinine (0.57-1.11) mg/dL Est GFR ( Amer) (> 60) Est GFR (Non-Af Amer) (> 60) BUN/Creatinine Ratio (6-26) Glucose (70-99) mg/dL Calculated Osmolality (280-300) Calcium (8.6-10.8) mg/dL Total Bilirubin (0.2-1.2) mg/dL Direct Bilirubin (0.0-0.5) mg/dL Indirect Bilirubin (0.0-1.2) mg/dL AST (5-34) Units/L ALT (0-55) Units/L Alkaline Phosphatase (38-126) Units/L Troponin I 0.00 (0-0.03) ng/mL Serum Total Protein (6.0-8.3) g/dL Albumin (3.5-5.0) g/dL Globulin (2.4-3.5) g/dL Albumin/Globulin Ratio (1.1-2.2) Lipase (8-78) Units/L Salicylates (15-30) mg/dL Acetaminophen (10-30) mcg/mL Ethyl Alcohol (0-10) mg/dL - EKG Data EKG #1 EKG attestation: Yes I reviewed and interpreted this EKG. EKG results narrative: Sinus tachycardia at a rate of 114. WA interval is 118. Castration is 81. QT is 338. QTC is 406. No signs of acute ischemia. She does have some ST depressions in lead V3 but there is no correlating ST elevation. She has some significant changes from previous EKG dated 10/10/2016. There is no ST depressions noted then. Attestation Statement - Attestation Attestation: I examined this patient and my medical decision-making was reviewed with the RELIGION DEPARTMENT CHAIR/PA/Advanced Practice Nurse/Resident Physician. I agree with the documented findings, disposition and treatment plan as described except to the extent set forth below.
[2016-10-16 19:47] LABS: Basophils % 0.6 %; Eosinophils % 0.2 %
[2016-10-16 19:59] LABS: Acetaminophen < 1.0 mcg/mL (10-30); Alanine Aminotransferase 45 Units/L (0-55); Albumin 3.1 g/dL (3.5-5.0); Alkaline Phosphatase 194 Units/L (38-126); Aspartate Amino Transferase 59 Units/L (5-34); BUN/Creatinine Ratio 9 (6-26); Bilirubin,Direct 0.3 mg/dL (0.0-0.5); Bilirubin,Indirect 0.3 mg/dL (0.0-1.2); Bilirubin,Total 0.6 mg/dL (0.2-1.2); Blood Urea Nitrogen 7 mg/dL (7-20); Carbon Dioxide 17 mEq/L (19-29); Chloride 105 mEq/L (98-109); Ethanol 177 mg/dL (0-10); Globulin 3.2 g/dL (2.4-3.5); Glucose 267 mg/dL (70-99); Osmolality,Calculated 293 (280-300); Potassium 3.4 mEq/L (3.5-4.5); Salicylate < 5.0 mg/dL (15-30); Sodium 138 mEq/L (136-145); Total Protein 6.3 g/dL (6.0-8.3); eGFR For African Americans > 60 (> 60); eGFR For Non-African Americans > 60 (> 60)
[2016-10-16 20:11] LABS: Basophils # 0.1 K/mcL (0.0-0.2); Hematocrit 44.5 % (35.3-44.9); Hemoglobin 14.6 g/dL (11.5-15.4); Immature Platelets 1.8 % (1.1-6.1); Lymphocytes # 2.2 K/mcL (0.6-4.6); Lymphocytes % 26.9 %; Mean Corpuscular HGB Conc 32.8 g/dL (31.6-35.5); Mean Corpuscular Hemoglobin 28.1 pg (28.0-33.3); Mean Corpuscular Volume 85.7 fL (83.0-100.0); Mean Platelet Volume 8.6 fL (9.4-12.4); Monocytes # 0.3 K/mcL (0.0-1.3); Monocytes % 3.1 %; Neutrophils # 5.7 K/mcL (1.6-8.9); Platelet Count 847 K/mcL (140-400); Red Blood Count 5.19 M/mcL (3.82-4.97); Red Cell Distribution Width 25.2 % (11.5-14.5); Segmented Neutrophils % 68.2 %
[2016-10-16 20:16] LABS: Anisocytosis 3+ (Not Present); Platelet Estimate Marked Increase (Normal); Reactive Lymphocytes Present (Not Present)
[2016-10-16 20:17] LABS: Microcytosis Present (Not Present)
[2016-10-16] MEDS ORDERED: GI Cocktail 40 ML EACH PO ONE (20:36)
[2016-10-16] MEDS ORDERED: Aspirin 81 MG TAB.CHEW PO ONE (21:02)
[2016-10-16] MEDS ORDERED: Haloperidol Lactate 5 MG/ML VIAL IVP ONE (21:10)
[2016-10-16] MEDS ORDERED: *HR* LORazepam 2 MG/ML VIAL IVP ONE (21:10)
[2016-10-16] MEDS: Nicotine 21 MG PATCH.TD24 TD SCH (21:22)
--- NOTE | 2016-10-16 22:32 | Internal Med History&Physical ---
Date of Encounter: 10/16/16 Time of Encounter: 22:15 Assessment and Plan (1) Alcohol withdrawal Current visit: Yes Status: Acute Alcohol abuse and dependence with acute withdrawal, uncomplicated IV fluids, nothing by mouth, IV Ativan when necessary By mouth Librium IV thiamine, folic acid, multivitamin CIWA protocol, neuro checks Consult director social Qualifiers: Complication of substance-induced condition: uncomplicated Qualified Code(s ): F10.230 - Alcohol dependence with withdrawal, uncomplicated (2) Mood disorder Current visit: No Status: Acute History of bipolar disorder Continue home medications (3) EKG abnormality Current visit: Yes Status: Acute Nonspecific ST-T changes, ST depression in lead V3, minimal change from previous EKG Troponin negative, trend troponin (4) Alcoholic cirrhosis of liver without ascites Current visit: No Status: Chronic Chronic alcoholic liver cirrhosis Follows up with Dr Manley No ascites at present and liver function seems to be at baseline Recent CT scan of the abdomen reviewed and showed moderate fatty infiltration of liver (5) Chronic pancreatitis Current visit: No Status: Chronic History of chronic pancreatitis secondary to alcohol abuse Lipase is normal Qualifiers: Pancreatitis type: alcohol induced Qualified Code(s): K86.0 - Alcohol- induced chronic pancreatitis (6) Physical deconditioning Current visit: No Status: Chronic Will need physical therapy and rehabilitation placement (7) DVT prophylaxis Current visit: Yes Status: Acute Continue heparin subcutaneous Internal Medicine - H&P: HPI Chief complaint: Alcohol withdrawal Admitted From: Emergency Dept History of present illness: Ms. Abdi is a 41 year old female with alcoholic liver cirrhosis, GERD, hyperlipidemia, hypertension, bipolar disorder, ADHD and diabetes. She presents to the ED with complaints of alcohol withdrawal. Patient had apparently been a senior care or rehabilitation facility recently and she signed herself out AMA. She started to drink alcohol again. She is not exactly sure when she had her last drink but it is within the past 1-2 days. Patient does complain of abdominal pain and nausea and vomiting. She does have a history of cirrhosis and has had chronic abdominal pain. As per records patient has had multiple abdominal surgeries including gastric bypass. Patient denies chest pain did not shortness of breath denies lightheadedness or dizziness. She denies diarrhea or cough or fever. Patient states she does have tremors which have been worsening over the past 1-2 days. She states she is having withdrawal and wants to be admitted. On examination patient is awake and alert. She is in discomfort but not in any distress. She is having obvious tremors. She is able to provide history. No family members at bedside. Patient is chronically ill-appearing. Patient apparently found intoxicated in the parking lot. She also has a history of chronic pancreatitis but her lipase is normal today. Patient is requesting help for detox. CT scan of abdomen and pelvis done about 6 days ago is reviewed and it shows postsurgical changes gastric bypass, and moderate fatty infiltration of liver. Patient was discharged about 9 days ago after being treated for similar complaints. She was on CIWA protocol, Ativan and Librium at that time as well. Patient has been explained about her condition and plan of care. She understood and agreed. No unanswered questions. Patient is being admitted for alcohol withdrawal and will probably need placement in a rehabilitation facility. CODE STATUS full code. Past Med Surg Social Fam HX - Past Medical History Medical history: cirrhosis, diabetes, GERD, hyperlipidemia, hypertension, liver disease, other Psychiatric history: ADHD, bipolar, prior suicide attempt, previous psychiatric hospitalization - Past Surgical History Surgical History: appendectomy, cholecystectomy, herniorrhaphy, hysterectomy, other - Social History Smoking Status: Current every day smoker Smokeless Tobacco Status: No Alcohol use: heavy, recent Drug use: none, opiates - Family History Father Living Status: Still Living Hx Family Cardiac Disorders: No Hx Family Respiratory Disorders: No Hx Family Cancer: No Hx Family GI Disorders: No Hx Family Endocrine Disorder: No Hx Family Neuromuscular Disorders: No Hx Family Neurologic Disorders: No Hx Family HEENT Disorders: No Hx Family Autoimmune Disorders: No Grandfather Living Status: Hx Family Cardiac Disorders: Yes (AL) Maternal Grandmother Living Status: Still Living Hx Family Cancer: Yes (Lung) Sister Living Status: Still Living Hx Family Cancer: Yes (Ovarian) Mother Adopted: No Living Status: Still Living Hx Family Cardiac Disorders: No Hx Family Respiratory Disorders: No Hx Family Cancer: No Hx Family GI Disorders: No Hx Family Endocrine Disorder: Yes (hypothyroidism) Hx Family Neuromuscular Disorders: No Hx Family Neurologic Disorders: No Hx Family HEENT Disorders: No Hx Family Autoimmune Disorders: No Internal Medicine - H&P: Meds RX: CloNIDine HCl 0.1 mg PO TID PRN 12/20/14 [History] RX: Cyanocobalamin (B-12) [Vitamin B12] 1 ml IJ QMONTH 12/20/14 [History] RX: Ergocalciferol (VITAMIN D2) [Drisdol (50,000 Unit)] 50,000 unit PO Q14D [History] RX: OLANZapine [Zyprexa] 20 mg PO HS 12/20/14 [History] RX: Sucralfate [Carafate] 1 gm PO QIDAC 12/20/14 [History] RX: Albuterol Sulfate [Albuterol Inhaler] 2 puff IH Q4HR PRN #1 inhaler [Rx] RX: Promethazine [Phenergan] 25 mg PO Q8HR PRN #90 tablet 12/21/14 [Rx] RX: Simethicone [Gas-X] 80 mg PO TID 02/04/15 [History] RX: Diphenoxylate/Atropine [Lomotil 2.5 mg/0.025 mg] 1 each PO QID PRN 07/28/15 [History] RX: Nut.tx.impaired Digest Fxn [Ensure Clear] 1 bottle PO BID #60 can 10/22/15 [ Rx] RX: Aspirin [Lo-Dose Aspirin EC] 81 mg PO DAILY 10/29/15 [History] RX: Esomeprazole Magnesium [Nexium] 40 mg PO BID #60 capsule. 02/29/16 [Rx] RX: Potassium Chloride [Klor-Con M15] 15 meq PO DAILY 05/02/16 [History] RX: Zinc Acetate [Galzin] 25 mg PO DAILY 05/02/16 [History] RX: Folic Acid 1 mg PO DAILY #90 tablet 06/13/16 [Rx] RX: Lipase/Protease/Amylase [Virgilio Ramos 36,000 Units Capsule] 3 cap PO TIDWM 10/03 [History] RX: Chlordiazepoxide [Librium] 25 mg PO TID capsule 10/07/16 [Rx] RX: Magnesium Oxide [Mag-Ox] 400 mg PO DAILY tablet 10/07/16 [Rx] RX: Nicotine Patch [Nicoderm] 21 mg TD DAILY patch.td24 10/07/16 [Rx] RX: Thiamine (B-1) [Vitamin B-1] 100 mg PO DAILY tablet 10/07/16 [Rx] RX: Vitamin B Complex/Vit C/Vit E [Stresstab] 1 each PO DAILY tablet 10/07/16 [ Rx] RX: Chlordiazepoxide [Librium] 25 mg PO TID #24 capsule 10/08/16 [Rx] Allergies cephalexin Allergy (Verified 10/10/16 17:08) Rash clindamycin Allergy (Verified 10/10/16 17:08) Rash nalbuphine [From Nubain] Adverse Reaction (Verified 10/10/16 17:08) "didn't like the way it made me feel" All Systems PM: A 10-system review of systems was performed and is negative for pertinent findings except as documented above in the HPI. - Constitutional Constitutional: as per HPI, fatigue, weakness, no fever(s) - EENT Eyes: no blurry vision, no loss of vision - Cardiovascular Cardiovascular ROS IM: no chest pain, no diaphoresis, no dyspnea, no dyspnea on exertion, no lightheadedness, no syncope - Respiratory Respiratory: no cough, no dyspnea, no dyspnea on exertion, no wheezing, no chest congestion - Gastrointestinal Gastrointestinal: abdominal pain, bloating, nausea, vomiting, no cramping, no diarrhea, no hematemesis, no hematochezia - Genitourinary Genitourinary: no dysuria - Musculoskeletal Musculoskeletal ROS IM: arthralgias, back pain - Neurological Neurological ROS: tremor(s), weakness, no abnormal gait, no abnormal speech, no dizziness, no focal weakness, no loss of vision - Psychiatric Psychiatric: anxiety - Constitutional Vitals: Temp Pulse Resp BP Pulse Ox 98.4 F 131 22 110/62 97 10/16/16 19:15 10/16/16 19:15 10/16/16 19:15 10/16/16 19:15 10/16/16 19:15 General appearance: Present: cachectic, A&O X 3, underweight, answers questions appropriately Exam: Generalized weakness, ill-appearing chronically, obvious tremors due to withdrawals - Eye Eye exam: Present: EOMI - ENT ENT exam: Present: mucous membranes dry - Neck Neck exam general surgery: Present: supple - Respiratory Respiratory exam: Present: CTAB. Absent: rales, rhonchi, wheezes, tachypnea - Cardiovascular Cardiovascular exam: Present: +S1, +S2, tachycardia - GI/Abdominal GI/Abdominal exam: Present: distended (Slightly distended), hypoactive bowel sounds, soft, tenderness (Mild generalized tenderness but mainly in epigastric region), no peritoneal signs. Absent: firm, guarding Additional comments: Midline laparotomy scar present - Extremities Exam Extremities exam: Present: radial pulses palpable and symetrical. Absent: cyanotic, pedal edema, tenderness - Neurological Exam Neurological exam: Present: alert, oriented X3, no focal deficits. Absent: facial droop, speech deficit Additional comments: Obvious tremors due to withdrawal. Internal Med - H&P Results - Labs CBC & Chem 7: 10/16/16 19:36 10/16/16 19:36
[2016-10-16] MEDS ORDERED: Naloxone 0.4 MG/ML INJ IVP PRN (22:34)
[2016-10-16] MEDS ORDERED: Ondansetron 4 MG/2 ML VIAL IVP PRN (22:34)
[2016-10-16] MEDS ORDERED: cloNIDine HCl 0.1 MG TABLET PO PRN (22:37)
[2016-10-16] MEDS ORDERED: *HR* LORazepam 2 MG/ML VIAL IVP PRN (22:41)
[2016-10-16 22:50] LABS: Prothrombin Time 11.3 Seconds (9.4-12.1)
[2016-10-16 22:53] LABS: Bilirubin,Urine Small (Negative); Blood,Urine Negative (Negative); Clarity,Urine Cloudy (Clear); Color,Urine Dark Yellow (Yellow); Glucose,Urine (UA) 500 mg/dL (Normal); Ketones,Urine 15 mg/dL (Negative); Leukocyte Esterase,Urine Negative (Negative); Nitrite,Urine Negative (Negative); PH,Urine 5.5 pH Units (5.0-8.0); Protein,Urine Trace mg/dL (Neg-Trace); Specific Gravity,Urine 1.024 (1.010-1.025); Urobilinogen,Urine Normal (Normal)
[2016-10-16 22:56] LABS: Bacteria,Urine None Seen per hpf (None-Few); Hyaline Casts,Urine Few per lpf (None-Few); RBC,Urine 0-3 per hpf (0-3); Squamous Epithelial Cell,Urine Many per lpf (None-Few); WBC,Urine 0-3 per hpf (0-3)
[2016-10-16 23:00] LABS: Amphetamine Screen,Urine Positive ng/mL (Cutoff=1000); Barbiturate Screen,Urine Negative ng/mL (Cutoff=200); Benzodiazepines Screen,Urine Positive ng/mL (Cutoff=200); Cannabinoid Screen,Urine Negative ng/mL (Cutoff = 50); Cocaine Screen,Urine Negative ng/mL (Cutoff= 300); Opiate Screen,Urine Negative ng/mL (Cutoff=300); Phencyclidine Screen,Urine Negative ng/mL (Cutoff=25)
[2016-10-16 23:01] LABS: Magnesium 1.6 mg/dL (1.6-2.6)
[2016-10-17] MEDS: 0.9 % Sodium Chloride 1,000 ML IVC SCH ×2 (00:40→20:11)
[2016-10-17] MEDS: Thiamine (B-1) 100 MG in D5% in Water 50 ML IVPB SCH ×2 (00:41→11:10)
[2016-10-17] MEDS: Folic Acid 1 MG TABLET PO SCH ×2 (00:41→07:57)
[2016-10-17] MEDS: *HR* Heparin 5,000 UNIT/ML VIAL SQ SCH ×4 (00:41→23:28)
[2016-10-17] MEDS ORDERED: Ketorolac 15 MG/ML VIAL IVP PRN (01:20)
[2016-10-17] MEDS: OLANZapine 10 MG TAB.RAPDIS PO SCH ×2 (01:59→20:10)
[2016-10-17 02:16] LABS: BUN/Creatinine Ratio 13 (6-26); Blood Urea Nitrogen 6 mg/dL (7-20); Calcium 7.3 mg/dL (8.6-10.8); Carbon Dioxide 22 mEq/L (19-29); Chloride 103 mEq/L (98-109); Glucose 68 mg/dL (70-99); Osmolality,Calculated 276 (280-300); Potassium 3.3 mEq/L (3.5-4.5); Sodium 135 mEq/L (136-145); eGFR For African Americans > 60 (> 60); eGFR For Non-African Americans > 60 (> 60)
[2016-10-17] MEDS ORDERED: D5% in Water 1,000 ML IVC PRN (03:19)
[2016-10-17] MEDS ORDERED: Dextrose Gel 15 GM PO PRN (03:19)
[2016-10-17] MEDS ORDERED: *HR* Dextrose 50 % in Water (Syg) 50 ML SYRINGE IVP PRN (03:19)
[2016-10-17] MEDS: Dextrose Gel 15 GM PO PRN ×2 (03:43→07:33)
[2016-10-17] MEDS: Famotidine 20 MG/2 ML VIAL IVP SCH ×2 (05:46→18:30)
[2016-10-17 07:17] LABS: Basophils # 0.1 K/mcL (0.0-0.2); Basophils % 0.8 %; Eosinophils # 0.1 K/mcL (0.0-0.6); Hematocrit 29.9 % (35.3-44.9); Hemoglobin 9.9 g/dL (11.5-15.4); Immature Granulocytes % 0.4 % (0-4); Lymphocytes # 2.9 K/mcL (0.6-4.6); Lymphocytes % 40.6 %; Mean Corpuscular HGB Conc 33.1 g/dL (31.6-35.5); Mean Corpuscular Hemoglobin 27.3 pg (28.0-33.3); Mean Corpuscular Volume 82.6 fL (83.0-100.0); Mean Platelet Volume 8.8 fL (9.4-12.4); Monocytes # 0.6 K/mcL (0.0-1.3); Monocytes % 8.2 %; Platelet Count 563 K/mcL (140-400); Red Blood Count 3.62 M/mcL (3.82-4.97); Red Cell Distribution Width 24.1 % (11.5-14.5)
[2016-10-17 07:31] LABS: Neutrophils # 3.5 K/mcL (1.6-8.9)
[2016-10-17] MEDS: Aspirin Enteric Coated 81 MG Tablet PO SCH (07:41)
[2016-10-17] MEDS: Magnesium Oxide 400 MG TABLET PO SCH (07:42)
[2016-10-17] MEDS: Nicotine 21 MG PATCH.TD24 TD SCH (07:50)
[2016-10-17 07:51] LABS: Anisocytosis 2+ (Not Present); Hypochromasia Present (Not Present); Macrocytosis Present (Not Present); Microcytosis Present (Not Present)
[2016-10-17] MEDS: (Zinc Acetate [Galzin] 25 MG) PO SCH (07:55)
[2016-10-17] MEDS: ENSURE CLEAR PO SCH ×2 (07:55→20:19)
[2016-10-17] MEDS: Vitamin B Complex/Vit C/Vit E 1 EACH TABLET PO SCH (07:58)
[2016-10-17] MEDS: *HR* LORazepam 2 MG/ML VIAL IVP PRN (14:34)
--- NOTE | 2016-10-17 17:46 | Internal Med Progress Note ---
Date of Encounter: 10/17/16 Time of Encounter: 12:30 - Assessment and plan (1) Alcohol withdrawal Current Visit: Yes Status: Acute Assessment and plan: Patient stating her last drink was yesterday and states that he eats she has been drinking a fifth of vodka every day for the last 6 months to 1 year. She is motivated to stop drinking. She states that she attended rehabilitation twice this year and she states that her insurance will no longer cover rehabilitation. career services officer on board. Continue CIWA scale and close monitoring. Patient stating she has never had withdrawal seizures but states she has withdrawal several times. Qualifiers: Complication of substance-induced condition: uncomplicated Qualified Code(s ): F10.230 - Alcohol dependence with withdrawal, uncomplicated (2) Alcoholism Current Visit: No Status: Chronic (3) Complications of gastric bypass surgery Current Visit: No Status: Chronic Assessment and plan: Patient saying she had gastric bypass surgery in 2001 and has subsequently had several complications including bowel obstructions, etc. Patient stating this is when she became addicted to pain medication which then led into severe alcoholism approximately 6 months to one year ago when she started drinking a fifth of vodka per day. 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 BMI 19. (6) Anemia Current Visit: No Status: Chronic Assessment and plan: Currently more consistent with her baseline. Initial blood work upon presentation consistent with hemoconcentration, will trend. Qualifiers: Iron deficiency anemia type: unspecified iron deficiency Qualified Code(s) : D50.9 - Iron deficiency anemia, unspecified (7) Pancreatitis Current Visit: No Status: Chronic Assessment and plan: Lipase normal, we will trend Qualifiers: Chronicity: chronic Pancreatitis type: alcohol induced Qualified Code(s) : K86.0 - Alcohol-induced chronic pancreatitis (8) Cirrhosis Current Visit: No Status: Chronic Assessment and plan: AST and alkaline phosphatase mildly elevated, we will trend Qualifiers: Hepatic cirrhosis type: alcoholic cirrhosis Ascites presence: without ascites Qualified Code(s): K70.30 - Alcoholic cirrhosis of liver without ascites (9) GERD (gastroesophageal reflux disease) Current Visit: No Status: Chronic Assessment and plan: Denies current symptoms, continue home medications Qualifiers: Esophagitis presence: esophagitis presence not specified Qualified Code(s) : K21.9 - Gastro-esophageal reflux disease without esophagitis (10) Tobacco abuse Current Visit: No Status: Chronic Assessment and plan: Declines counseling; continue nicotine patch (11) Bipolar disorder Current Visit: No Status: Chronic Assessment and plan: Mood and affect stable. She denies suicidal or homicidal ideation at this time. Qualifiers: Active/Remission status: in partial remission Most recent bipolar episode type: most recent episode unspecified type Qualified Code(s): F31.70 - Bipolar disorder, currently in remission, most recent episode unspecified (12) Hypokalemia Current Visit: No Status: Acute Assessment and plan: mild, will replete and trend (13) Hyponatremia Current Visit: No Status: Acute Assessment and plan: Associated with hyperosmolality, likely secondary to poor nutritional intake, will trend and continue IV fluids. Advance her diet as tolerated. (14) DVT prophylaxis Current Visit: Yes Status: Acute Assessment and plan: Subcutaneous heparin - Subjective Interval history: Patient seen and examined. On examination, patient sitting upright in bed. Patient stating that she feels miserable and states she has whole body aches. She states she is mildly nauseated however she has been able to tolerate liquid diet at this point. She states she last drank yesterday. - Constitutional Vitals: Temp Pulse Resp BP Pulse Ox 98.2 F 101 14 106/73 100 10/17/16 15:24 10/17/16 15:24 10/17/16 15:24 10/17/16 15:24 10/17/16 15:24 General appearance: Present: cachectic, disheveled, mild distress, A&O X 3, pleasant, underweight, answers questions appropriately - Head Head exam: Present: atraumatic, normocephalic - Eye Eye exam: Present: PERRL, conjuntiva pink, sclera anicteric Pupils: Present: PERRL - Neck Neck exam general surgery: Present: supple, trachea midline. Absent: lymphadenopathy - Respiratory Respiratory exam: Present: decreased breath sounds. Absent: accessory muscle use, rales, respiratory distress, rhonchi, wheezes - Cardiovascular Cardiovascular exam: Present: RRR, +S1, +S2. Absent: diastolic murmur, gallop, rubs, systolic murmur - GI/Abdominal GI/Abdominal exam: Present: normal bowel sounds, soft, no peritoneal signs. Absent: distended, tenderness - Extremities Exam Extremities exam: Present: warm, radial pulses palpable and symetrical. Absent : calf tenderness, cyanotic, pedal edema - Neurological Exam Neurological exam: Present: alert, CN II-XII intact, oriented X3, no focal deficits, strengths equal and symetr throughout. Absent: pronater drift, facial droop, speech deficit - Skin Skin exam: Present: dry, intact, pallor, warm Internal Medicine: Result - Labs CBC & Chem 7: 10/17/16 06:37 10/17/16 01:26 Labs: Short CBC 10/17/16 Range/Units 06:37 WBC 7.2 (4.3-11.1) K/mcL Hgb 9.9 L D (11.5-15.4) g/dL Hct 29.9 L (35.3-44.9) % Plt Count 563 H (140-400) K/mcL Neutrophils # 3.5 (1.6-8.9) K/mcL BMP 10/17/16 01:26 Sodium 135 L Potassium 3.3 L Chloride 103 Carbon Dioxide 22 BUN 6 L Creatinine 0.47 L Glucose 68 L Calcium 7.3 L Cardiac Enzymes 10/17/16 Range/Units 01:26 Troponin I 0.00 (0-0.03) ng/mL - ABG Interpretation ABG results: PT/INR, D-dimer PT 11.3 Seconds (9.4-12.1) 10/16/16 19:36 Consult Discharge Plan - Plan Referrals: Villa Manzanares DO [Primary Care Provider] - 10/23/16 10:20 am
[2016-10-17] MEDS ORDERED: traMADol 50 MG TABLET PO PRN (18:05)
[2016-10-17] MEDS ORDERED: *HR* OxyCODONE Immed Rel 5 MG TABLET PO PRN (18:05)
[2016-10-17] MEDS ORDERED: *HR* Promethazine 25 MG/ML VIAL IVP PRN (18:05)
[2016-10-17] MEDS ORDERED: Ondansetron 4 MG/2 ML VIAL IVP PRN (18:07)
[2016-10-17 19:08] LABS: Bilirubin,Direct 0.5 mg/dL (0.0-0.5); Bilirubin,Indirect 0.3 mg/dL (0.0-1.2); Bilirubin,Total 0.8 mg/dL (0.2-1.2); Chol/HDL Ratio 1.9 (0-4.9); Globulin 2.3 g/dL (2.4-3.5)
[2016-10-17 19:10] LABS: Albumin 2.4 g/dL (3.5-5.0); Total Protein 4.7 g/dL (6.0-8.3)
[2016-10-17 20:27] LABS: Folate 29.5 ng/mL (7.0-31.4)
[2016-10-18] MEDS: 0.9 % Sodium Chloride 1,000 ML IVC SCH (00:11)
[2016-10-18 04:33] LABS: Eosinophils # 0.2 K/mcL (0.0-0.6); Eosinophils % 3.9 %; Hematocrit 30.6 % (35.3-44.9); Hemoglobin 9.9 g/dL (11.5-15.4); Immature Granulocytes % 0.2 % (0-4); Lymphocytes # 2.5 K/mcL (0.6-4.6); Lymphocytes % 61.5 %; Mean Corpuscular HGB Conc 32.4 g/dL (31.6-35.5); Mean Corpuscular Hemoglobin 27.7 pg (28.0-33.3); Mean Corpuscular Volume 85.5 fL (83.0-100.0); Mean Platelet Volume 8.6 fL (9.4-12.4); Monocytes # 0.3 K/mcL (0.0-1.3); Monocytes % 7.1 %; Neutrophils # 1.1 K/mcL (1.6-8.9); Platelet Count 478 K/mcL (140-400); Red Blood Count 3.58 M/mcL (3.82-4.97); Red Cell Distribution Width 24.6 % (11.5-14.5); Segmented Neutrophils % 26.3 %
[2016-10-18 04:51] LABS: BUN/Creatinine Ratio 13 (6-26); Blood Urea Nitrogen 7 mg/dL (7-20); Calcium 7.8 mg/dL (8.6-10.8); Carbon Dioxide 23 mEq/L (19-29); Chloride 110 mEq/L (98-109); Glucose 99 mg/dL (70-99); Magnesium 1.6 mg/dL (1.6-2.6); Osmolality,Calculated 284 (280-300); Potassium 3.9 mEq/L (3.5-4.5); Sodium 138 mEq/L (136-145); eGFR For African Americans > 60 (> 60); eGFR For Non-African Americans > 60 (> 60)
[2016-10-18] MEDS: Famotidine 20 MG/2 ML VIAL IVP SCH (06:37)
[2016-10-18 06:59] LABS: Microcytosis Present (Not Present)
[2016-10-18 07:00] LABS: Anisocytosis 1+ (Not Present); Hypochromasia Present (Not Present); Macrocytosis Present (Not Present)
[2016-10-18] MEDS: Aspirin Enteric Coated 81 MG Tablet PO SCH (08:30)
--- NOTE | 2016-10-18 08:30 | Electrocardiograph Report ---
[address] [place], [place] [address] Test Date: 2016-10-16 Pat Name: Gayle Abdi Department: 103 Room: 3B35 Gender: F [employer] Se[employer]: FAUSTO : [id number] Requested By: Luz Garcia Order Number: [id number] Reading MD: Royal Quinones MD Measurements Intervals [place] Rate: 114 P: 71 TN: 118 QRS: 76 QRSD: 81 T: -58 QT: 338 QTc: 406 Interpretive Statements SINUS TACHYCARDIA WITH SHORT TN INTERVAL ANTEROLATERAL ISCHEMIA INFERIOR ISCHEMIA Electronically Signed On 10-18-2016 8:29:22 EDT by Royal Quinones MD
[2016-10-18] MEDS: *HR* Heparin 5,000 UNIT/ML VIAL SQ SCH (08:31)
[2016-10-18] MEDS: Magnesium Oxide 400 MG TABLET PO SCH (08:31)
[2016-10-18] MEDS: Vitamin B Complex/Vit C/Vit E 1 EACH TABLET PO SCH (08:31)
[2016-10-18] MEDS: Folic Acid 1 MG TABLET PO SCH (08:31)
[2016-10-18] MEDS: ENSURE CLEAR PO SCH (08:32)
[2016-10-18] MEDS: Nicotine 21 MG PATCH.TD24 TD SCH (08:32)
[2016-10-18] MEDS: Thiamine (B-1) 100 MG in D5% in Water 50 ML IVPB SCH (08:33)
[2016-10-18] MEDS: *HR* LORazepam 2 MG/ML VIAL IVP PRN ×2 (08:33→11:46)
[2016-10-18] MEDS: (Zinc Acetate [Galzin] 25 MG) PO SCH (08:33)
[2016-10-18 14:48] VITALS: BP 106/71
--- NOTE | 2016-10-18 15:22 | Discharge Summary ---
Date of Encounter: 10/18/16 Time of Encounter: 14:00 - Discharge Diagnosis (1) Alcohol withdrawal Priority: Primary Status: Acute Comments: Patient stating she felt as if she was through the worst of her withdrawal. No seizure like activity since admission. Scoring low on CIWA. Has never had DTs. Tolerating soft diet and Ensure. Will send home on [employer] and have her followup closely outpatient. She has been given resources by psychologist social. Qualifiers: Complication of substance-induced condition: uncomplicated Qualified Code(s ): F10.230 - Alcohol dependence with withdrawal, uncomplicated (2) Alcoholism Priority: Secondary Status: Chronic (3) Complications of gastric bypass surgery Priority: Secondary Status: Chronic Comments: Patient saying she had gastric bypass surgery in 2001 and has subsequently had several complications including bowel obstructions, etc. Patient stating this is when she became addicted to pain medication which then led into severe alcoholism approximately 6 months to one year ago when she started drinking a fifth of vodka per day. She is motivated to stop drinking altogether and states she has a strong support network. 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 Follow-up outpatient Qualifiers: Iron deficiency anemia type: unspecified iron deficiency Qualified Code(s) : D50.9 - Iron deficiency anemia, unspecified (7) Pancreatitis Priority: Secondary Status: Chronic Comments: Lipase normal, able to tolerate bland diet while admitted. Qualifiers: Chronicity: chronic Pancreatitis type: alcohol induced Qualified Code(s) : K86.0 - Alcohol-induced chronic pancreatitis (8) Cirrhosis Priority: Secondary Status: Chronic Comments: AST and alkaline phosphatase mildly elevated and trended down. Followup outpatient. Qualifiers: Hepatic cirrhosis type: alcoholic cirrhosis Ascites presence: without ascites Qualified Code(s): K70.30 - Alcoholic cirrhosis of liver without ascites (9) GERD (gastroesophageal reflux disease) Priority: Secondary Status: Chronic Comments: Denies current symptoms, continue home medications Qualifiers: Esophagitis presence: esophagitis presence not specified Qualified Code(s) : K21.9 - Gastro-esophageal reflux disease without esophagitis (10) Tobacco abuse Priority: Secondary Status: Chronic Comments: Declines counseling; declined nicotine patch Rx upon discharge (11) Bipolar disorder Priority: Secondary Status: Chronic Comments: Mood and affect stable. She denied suicidal or homicidal ideation while admitted Qualifiers: Active/Remission status: in partial remission Most recent bipolar episode type: most recent episode unspecified type Qualified Code(s): F31.70 - Bipolar disorder, currently in remission, most recent episode unspecified (12) Hypokalemia Priority: Primary Status: Resolved (13) Hyponatremia Priority: Primary Status: Resolved (14) DVT prophylaxis Priority: Primary Status: Acute Comments: Subcutaneous heparin while admitted (15) Protein-calorie malnutrition, moderate Priority: Primary Status: Acute Comments: Ensure Plus 3 times a day, follow-up outpatient - Discharge Medications Prescriptions: Chlordiazepoxide [Librium] 25 mg PO TID PRN #21 capsule PRN Reason: Alcohol Withdrawal Lactose-Reduced Food [Ensure Plus] 1 bottle PO TID #90 can Vilazodone HCl [Viibryd] 20 mg PO DAILY #30 tablet Home Medications: Cyanocobalamin (B-12) [Vitamin B12] 1 ml IJ QMONTH 12/20/14 [History] OLANZapine [Zyprexa] 20 mg PO HS 12/20/14 [History] Sucralfate [Carafate] 1 gm PO QIDAC 12/20/14 [History] Promethazine [Phenergan] 25 mg PO Q8HR PRN #90 tablet 12/21/14 [Rx] Simethicone [Gas-X] 80 mg PO TID PRN 02/04/15 [History] Diphenoxylate/Atropine [Lomotil 2.5 mg/0.025 mg] 1 each PO QID PRN 07/28/15 [ History] Esomeprazole Magnesium [Nexium] 40 mg PO BID #60 capsule. 02/29/16 [Rx] Potassium Chloride [Klor-Con M15] 15 meq PO DAILY 05/02/16 [History] Lipase/Protease/Amylase [Virgilio Ramos 36,000 Units Capsule] 3 cap PO TIDWM 10/03/16 [History] Albuterol Sulfate [Proair Hfa] 2 puff IH Q6H PRN 10/17/16 [History] Dextroamphetamine/Amphetamine [Adderall 10 mg Tablet] 10 mg PO TID 10/17/16 [ History] Ergocalciferol (VITAMIN D2) [Vitamin D2] 50,000 unit PO TU 10/17/16 [History] Naltrexone Microspheres [Vivitrol] 380 mg IM QMONTH 10/17/16 [History] Ranitidine HCl [Zantac] 300 mg PO BID 10/17/16 [History] Chlordiazepoxide [Librium] 25 mg PO TID PRN #21 capsule 10/18/16 [Rx] Lactose-Reduced Food [Ensure Plus] 1 bottle PO TID #90 can 10/18/16 [Rx] Vilazodone HCl [Viibryd] 20 mg PO DAILY #30 tablet 10/18/16 [Rx] Allergies/Adverse Reactions: Allergies cephalexin Allergy (Verified 10/10/16 17:08) Rash clindamycin Allergy (Verified 10/10/16 17:08) Rash nalbuphine [From Nubain] Adverse Reaction (Verified 10/10/16 17:08) "didn't like the way it made me feel" Date of admission: 10/17/16 00:40 Primary care physician: Villa Manzanares DO Consults: 10/17/16 17:57 Consult to Nutrition [CONS] Routine Comment: alcoholic; malnutrition Consulting Provider: NUTRITION Reason for Dietary Consult: PO Supplementation Discharging clinician: Emmy Matute Anticipated date of discharge: 10/18/16 (given resources) - Patient Status Disposition: Home, Self-Care Condition: Fair Functional capacity at discharge: independent ambulation Overall status at discharge: patient is progressing back to baseline - Discharge Instructions Follow Up With: Villa Manzanares DO [Primary Care Provider] - 10/23/16 10:20 am Additional Instructions: Follow-up with primary care provider as scheduled - Diet and Activity Activity: increase activity as tolerated Diet: regular diet (with ensure plus TID) Hospital course: Ms. Abdi is a 41 year old female with past medical history of alcoholic liver cirrhosis, GERD, hyperlipidemia, hypertension, bipolar disorder, ADHD, diabetes , history of Flynn-en-Y in 2001, tobacco abuse. Patient presented to the emergency department with chief complaint of alcohol withdrawal. Patient stating she had been at a prison/rehabilitation facility where she signed herself out AMA and started to drink alcohol again. Patient also endorsed abdominal pain, nausea and vomiting. Patient has also had multiple surgeries and complications related to her gastric bypass. Patient denied chest pain or shortness of breath. Workup in the emergency department unremarkable other than a positive tox screen for amphetamines, benzos, and alcohol. Patient was admitted to the hospitalist service for further evaluation and management. She was started on Librium with IV Ativan as needed. She was seen and observed over the course of 2 nights. She had no seizure-like activity while admitted. She states that prior to admission, she would drink a fifth of vodka daily for at least the past 6-12 months. Patient stating she is motivated to stop drinking and states that she is aware the inpatient treatment is no longer an option for her due to insurance restraints. front services agent was on board during this admission and give her resources. Nutrition was also brought on board as the patient has a history of requiring TPN last year. She was started on Ensure Plus 3 times a day. She was able to tolerate a bland diet while admitted. She remained alert and oriented 3 throughout this admission and scored low on the CIWA scale. She was anxious to go home and stated that she had a strong network of support. Regarding her chronic malnutrition, B12, folate, PTH levels were normal. Vitamin D levels were low and her supplementation was continued. Her LFTs and lipase remained stable throughout this admission. She remained hemodynamically stable as well. She was discharged home in stable condition with close outpatient follow-up recommended. She was discharged with a short one-week supply of Librium. OARRS report checked out okay. ITS Impressions Chest X-Ray 10/16/16 23:05 IMPRESSION: No acute process. D/ / Jin Sorenson MD / Jin Sorenson MD Interpreting Provider: Jin Sorenson MD - Time Spent with Patient Total time spent providing and/or coordinating discharge services: - Constitutional Vitals: Temp Pulse Resp BP Pulse Ox 97.7 F 76 15 106/71 98 10/18/16 14:46 10/18/16 14:46 10/18/16 14:46 10/18/16 14:46 10/18/16 14:46 General appearance: Present: cachectic, disheveled, A&O X 3, pleasant, no acute distress, underweight, answers questions appropriately - Head Head exam: Present: atraumatic, normocephalic - Eye Eye exam: Present: PERRL, conjuntiva pink, sclera anicteric Pupils: Present: PERRL - Neck Neck exam general surgery: Present: supple, trachea midline. Absent: lymphadenopathy - Respiratory Respiratory exam: Present: decreased breath sounds. Absent: accessory muscle use, rales, respiratory distress, rhonchi, wheezes - Cardiovascular Cardiovascular exam: Present: RRR, +S1, +S2. Absent: diastolic murmur, gallop, rubs, systolic murmur - GI/Abdominal GI/Abdominal exam: Present: normal bowel sounds, soft, no peritoneal signs. Absent: distended, tenderness - Extremities Exam Extremities exam: Present: warm, radial pulses palpable and symetrical. Absent : calf tenderness, cyanotic, pedal edema - Neurological Exam Neurological exam: Present: alert, CN II-XII intact, normal gait, oriented X3, no focal deficits, strengths equal and symetr throughout. Absent: pronater drift, facial droop, speech deficit - Skin Skin exam: Present: dry, intact, pallor, warm
[2016-10-20 07:24] LABS: Zinc 73 ug/dL (60-120)
[2016-10-21 10:26] LABS: Vitamin B1 (Thiamine) Whole Bl 352 nmol/L (70-180)
== END 2016-10-18 16:31 | disposition home or self-care (01) | DRG 897 ==
LOC: 3BNU 19:12 → EMEROO 19:12 → 3BNU 10-17 00:05 → SUATTDRO 10-17 00:40
PROVIDERS: ADMIT Family Medicine; ATTEND Nurse Practitioner Family

== ENCOUNTER 2016-10-23 08:29 | Observation (INO) ==
[2016-10-23] MEDS ORDERED: diazePAM 10 MG/2 ML SYRINGE IVP STA (08:32)
[2016-10-23] MEDS ORDERED: Ondansetron 4 MG/2 ML VIAL IVP ONE (08:32)
[2016-10-23] MEDS ORDERED: *HR* HYDROmorphone (PF) 1 MG/ML SYRINGE IVP ONE ×2 (08:32→10:09)
[2016-10-23] MEDS ORDERED: 0.9 % Sodium Chloride 1,000 ML IVC ONE (08:32)
[2016-10-23] MEDS ORDERED: Thiamine (B-1) 200 MG/2 ML VIAL IM STA (08:32)
--- NOTE | 2016-10-23 08:36 | Emergency Department Note ---
Disposition Clinical Impression: Alcohol abuse, Dehydration, mild Alcohol withdrawal Qualifiers: Complication of substance-induced condition: uncomplicated Qualified Code(s): F10.230 - Alcohol dependence with withdrawal, uncomplicated Abdominal pain Qualifiers: Abdominal location: generalized Qualified Code(s): R10.84 - Generalized abdominal pain Disposition: Admitted As Inpatient Condition: Fair Referrals: NO,PCP [Primary Care Provider] - Forms: ED Satisfaction Letter General Adult HPI - General Chief complaint: ED Shortness of Breath/Dyspnea Stated complaint: SOB Time Seen by Provider: 10/23/16 08:31 Nursing Notes Reviewed: Yes Vital Signs Reviewed: Yes - History of Present Illness HPI Narrative: Chief complaints abdominal pain and alcohol withdrawal. History: This is a 41-year-old female who is coming having alcohol withdrawal and abdominal pain. She has a history of cirrhosis. She had been sober for about 30 days but she says her insurance will pay for treatment. She quit drinking yesterday. His having a lot of nausea and vomiting and diarrhea 7 mild shakes at this time. She had a history of DTs in the past according to her. She has had a history of gastric bypass surgery which is remote. Denies any homicidal, suicidal ideations, no hallucinations. Denies chest pain or shortness of breath no back pain. She says she has been through this before. She is very dry and has available to keep any fluids down. Past medical history reviewed, nurse's notes reviewed, allergies reviewed, medications reviewed. - Related Data Home Medications Medication Instructions Recorded Confirmed Cyanocobalamin (B-12) [Vitamin B12] 1 ml IJ QMONTH 12/20/14 10/23/16 OLANZapine [Zyprexa] 20 mg PO HS 12/20/14 10/23/16 Sucralfate [Carafate] 1 gm PO QIDAC 12/20/14 10/23/16 Simethicone [Gas-X] 80 mg PO TID PRN 02/04/15 10/23/16 Diphenoxylate/Atropine [Lomotil 1 each PO QID PRN 07/28/15 10/23/16 2.5 mg/0.025 mg] Potassium Chloride [Klor-Con M15] 15 meq PO DAILY 05/02/16 10/23/16 Lipase/Protease/Amylase [Oneidaon Dr 3 cap PO TIDWM 10/03/16 10/23/16 36,000 Units Capsule] Albuterol Sulfate [Proair Hfa] 2 puff IH Q6H PRN 10/17/16 10/23/16 Dextroamphetamine/Amphetamine 10 mg PO TID 10/17/16 10/23/16 [Adderall 10 mg Tablet] Ergocalciferol (VITAMIN D2) 50,000 unit PO TU 10/17/16 10/23/16 [Vitamin D2] Naltrexone Microspheres [Vivitrol] 380 mg IM QMONTH 10/17/16 10/23/16 Ranitidine HCl [Zantac] 300 mg PO BID 10/17/16 10/23/16 Previous Rx's Medication Instructions Recorded Promethazine [Phenergan] 25 mg PO Q8HR PRN #90 tablet 12/21/14 Esomeprazole Magnesium [Nexium] 40 mg PO BID #60 capsule. 02/29/16 Chlordiazepoxide [Librium] 25 mg PO TID PRN #21 capsule 10/18/16 Lactose-Reduced Food [Ensure Plus] 1 bottle PO TID #90 can 10/18/16 Vilazodone HCl [Viibryd] 20 mg PO DAILY #30 tablet 10/18/16 Allergies Allergy/AdvReac Type Severity Reaction Status Date / Time cephalexin Allergy Rash Verified 10/10/16 17:08 clindamycin Allergy Rash Verified 10/10/16 17:08 nalbuphine [From Nubain] AdvReac "didn't Verified 10/10/16 17:[address] it made me feel" Review of Systems: Review of systems are positive for generalized abdominal pain, nausea, vomiting , diarrhea, mild shakes, alcohol withdrawal. All systems ED: reviewed and negative except as stated. Past Medical History - Past Medical History Medical history: Reports: cirrhosis, diabetes, GERD, hyperlipidemia, hypertension, liver disease, other Surgical history: Reports: appendectomy, cholecystectomy, herniorrhaphy, hysterectomy, other Psychiatric history: Reports: ADHD, bipolar, prior suicide attempt, previous psychiatric hospitalization GEM CUTTER history: Reports: no GEM CUTTER history - Social History Smoking Status: Current every day smoker Smokeless Tobacco Status: No Alcohol use: Reports: heavy, recent Drug use: Reports: opiates Physical Exam Gen. 98.1, pulse 121 and regular, respirations 18, BP 128/90, pulse ox 99% she weighs 50.8 kg. General she is alert, appears not to feel well, cachectic, and dry. Nontoxic in appearance however HEENT is normocephalic, PERRL, EOMI midline airway no drooling or stridor she has no scleral icterus. No jaundice. Cardiovascular tachycardic but regular without rubs or JVD Lungs are clear to auscultation bilaterally with good aeration no chest wall tenderness abdomen is soft tender throughout, nondistended, she does have bowel sounds, she has an old surgical scar from her gastric bypass surgery but no signs of acute infections. Extremities are present 4 with good distal pulses Refill is brisk dermatologic skin is warm and dry no rash petechia or jaundice neurologic no focal deficits cranial neuromotor sensory exam she has slight ataxia intake and shakes in her hands. Alert person place and time GCS is 15. Course Vital Signs Temperature 98.1 F 10/23/16 08:31 Pulse Rate 121 10/23/16 08:31 Respiratory Rate 18 10/23/16 08:31 Blood Pressure 128/90 10/23/16 08:31 O2 Sat by Pulse Oximetry 99 10/23/16 08:31 Temperature 98.1 F 10/23/16 08:31 Pulse Rate 103 10/23/16 11:00 Respiratory Rate 16 10/23/16 11:00 Blood Pressure 123/84 10/23/16 11:00 O2 Sat by Pulse Oximetry 98 10/23/16 11:00 Oxygen Delivery Oxygen Delivery Room Air Medical Decision Making - [facility] Narrative Medical decision making narrative: 0838 hours: Patient EKG performed, shows a sinus tachycardia with a rate of 107 , PA interval is 107 with a short, QTc 79, QTc is 422, does have flipped T waves some ST segment depression in inferior and anterior lateral leads she has no other signs of acute ischemia, has no chest pain at this time, compare this on EKG she had done last month shows no changes except for rate. Giving her fluids, pain medications and nausea medications Valium to help with her withdrawal symptoms, lab work. She will most likely need admission due to alcohol withdrawal and her other liver abnormalities. Waiting on lab work. She is in agreement with this plan. Chest X-Ray 10/23/16 08:31 IMPRESSION: No acute cardiopulmonary process. D/ / 10/23/2016 09:47:53 Shanelle Mon MD / olga Interpreting Provider: Shanelle Mon MD 1010 hrs.: Patient's labs are coming back. Her alcohol is 117; her AST is slightly high which is expected with her alcoholism. She is having a lot of burning pain similar to gastritis in the past per her. Will give her some Pepcid also. We will CT her abdomen since she has a history of cirrhosis and has a history of gastric bypass surgery. Most likely we will bring her into the hospital due to her high risk of DTs. We will see what the pathology demonstrates on her CT. She is in agreement with this plan. Chest X-Ray 10/23/16 08:31 IMPRESSION: No acute cardiopulmonary process. D/ / 10/23/2016 09:47:53 Shanelle Mon MD / olga Interpreting Provider: Shanelle Mon MD Abdomen/Pelvis CT 10/23/16 10:08 IMPRESSION: 1. There is enhancement wall thickening noted along the stomach, duodenum, and proximal jejunal loops, likely related to an infectious/inflammatory enteritis. No evidence of bowel obstruction. 2. Fatty liver. 3. No other acute findings in the abdomen and pelvis. D/ / Hans Don MD / Hans Don MD Interpreting Provider: Hans Don MD 1140 hrs.: She would like to be admitted. about plan as she has been admitted before and she is back to drinking. She probably does need some type of detox. We will bring her in to rule out make sure she does not go back into a withdrawal or DTs situation. She is in agreement with this plan. Her critical care time exclusive a little procedures is 35 minutes. Hospice is accepted her for admission. - Lab Data Result diagrams: 10/23/16 09:25 10/23/16 09:25 Lab Results 10/23/16 10/23/16 10/23/16 Range/Units 09:25 09:25 09:25 WBC 7.3 D (4.3-11.1) K/mcL RBC 4.22 (3.82-4.97) M/mcL Hgb 11.9 D (11.5-15.4) g/dL Hct 34.1 L (35.3-44.9) % MCV 80.8 L (83.0-100.0) fL MCH 28.2 (28.0-33.3) pg MCHC 34.9 (31.6-35.5) g/dL RDW 24.2 H (11.5-14.5) % Plt Count 426 H (140-400) K/mcL MPV 8.3 L (9.4-12.4) fL Immature Gran % 0.4 (0-4) % Seg Neutrophils % 64.4 % Lymphocytes % 27.0 % Monocytes % 8.0 % Eosinophils % 0.1 % Basophils % 0.1 % Neutrophils # 4.7 (1.6-8.9) K/mcL Lymphocytes # 2.0 (0.6-4.6) K/mcL Monocytes # 0.6 (0.0-1.3) K/mcL Eosinophils # 0.0 (0.0-0.6) K/mcL Basophils # 0.0 (0.0-0.2) K/mcL Platelet Estimate Increased H (Normal) Anisocytosis 2+ A (Not Present) Target Cells 1+ A (Not Present) PT 11.9 (9.4-12.1) Seconds INR 1.1 APTT 30.2 (26.0-36.0) Seconds Sodium 134 L (136-145) mEq/L Potassium 3.7 (3.5-4.5) mEq/L Chloride 98 (98-109) mEq/L Carbon Dioxide 17 L (19-29) mEq/L BUN 7 (7-20) mg/dL Creatinine 0.57 (0.57-1.11) mg/dL Est GFR ( Amer) > 60 (> 60) Est GFR (Non-Af Amer) > 60 (> 60) BUN/Creatinine Ratio 12 (6-26) Glucose 74 (70-99) mg/dL Calculated Osmolality 275 L (280-300) Lactic Acid (0.5-2.2) mmol/L Calcium 7.2 L (8.6-10.8) mg/dL Total Bilirubin 0.9 (0.2-1.2) mg/dL AST 127 H (5-34) Units/L ALT 49 (0-55) Units/L Alkaline Phosphatase 167 H (38-126) Units/L Troponin I (0-0.03) ng/mL Serum Total Protein 4.7 L (6.0-8.3) g/dL Albumin 2.4 L (3.5-5.0) g/dL Globulin 2.3 L (2.4-3.5) g/dL Albumin/Globulin Ratio 1.0 L (1.1-2.2) Lipase < 10 (8-78) Units/L Urine Color (Yellow) Urine Clarity (Clear) Urine pH (5.0-8.0) pH Units Ur Specific [place] (1.010-1.025) Urine Protein (Neg-Trace) mg/dL Urine Glucose (UA) (Normal) mg/dL Urine Ketones (Negative) mg/dL Urine Blood (Negative) Urine Nitrite (Negative) Urine Bilirubin (Negative) Urine Urobilinogen (Normal) mg/dL Ur Leukocyte Esterase (Negative) Urine Microscopic RBC (0-3) per hpf Urine Microscopic WBC (0-3) per hpf Ur Squamous Epith Cells (None-Few) per lpf Urine Bacteria (None-Few) per hpf Hyaline Casts (None-Few) per lpf Ur Culture Indicated? (NO) Urine Test (Negative) Salicylates < 5.0 L (15-30) mg/dL Urine Opiates Screen (Qfojgm=978) ng/mL Acetaminophen < 1.0 L (10-30) mcg/mL Ur Barbiturates Screen (Wjdrmi=605) ng/mL Ur Phencyclidine Scrn (Cutoff=25) ng/mL Ur Amphetamines Screen (Lyunja=9453) ng/mL U Benzodiazepines Scrn (Pecqyr=107) ng/mL Urine Cocaine Screen (Cutoff= 300) ng/mL U Marijuana (THC) Screen (Cutoff = 50) ng/mL Ethyl Alcohol 116 H (0-10) mg/dL 10/23/16 10/23/16 10/23/16 Range/Units 09:25 09:25 09:42 WBC (4.3-11.1) K/mcL RBC (3.82-4.97) M/mcL Hgb (11.5-15.4) g/dL Hct (35.3-44.9) % MCV (83.0-100.0) fL MCH (28.0-33.3) pg MCHC (31.6-35.5) g/dL RDW (11.5-14.5) % Plt Count (140-400) K/mcL MPV (9.4-12.4) fL Immature Gran % (0-4) % Seg Neutrophils % % Lymphocytes % % Monocytes % % Eosinophils % % Basophils % % Neutrophils # (1.6-8.9) K/mcL Lymphocytes # (0.6-4.6) K/mcL Monocytes # (0.0-1.3) K/mcL Eosinophils # (0.0-0.6) K/mcL Basophils # (0.0-0.2) K/mcL Platelet Estimate (Normal) Anisocytosis (Not Present) Target Cells (Not Present) PT (9.4-12.1) Seconds INR APTT (26.0-36.0) Seconds Sodium (136-145) mEq/L Potassium (3.5-4.5) mEq/L Chloride (98-109) mEq/L Carbon Dioxide (19-29) mEq/L BUN (7-20) mg/dL Creatinine (0.57-1.11) mg/dL Est GFR ( Amer) (> 60) Est GFR (Non-Af Amer) (> 60) BUN/Creatinine Ratio (6-26) Glucose (70-99) mg/dL Calculated Osmolality (280-300) Lactic Acid 1.6 (0.5-2.2) mmol/L Calcium (8.6-10.8) mg/dL Total Bilirubin (0.2-1.2) mg/dL AST (5-34) Units/L ALT (0-55) Units/L Alkaline Phosphatase (38-126) Units/L Troponin I 0.00 (0-0.03) ng/mL Serum Total Protein (6.0-8.3) g/dL Albumin (3.5-5.0) g/dL Globulin (2.4-3.5) g/dL Albumin/Globulin Ratio (1.1-2.2) Lipase (8-78) Units/L Urine Color Yellow (Yellow) Urine Clarity Clear (Clear) Urine pH 6.0 (5.0-8.0) pH Units Ur Specific [place] 1.017 (1.010-1.025) Urine Protein Trace (Neg-Trace) mg/dL Urine Glucose (UA) Normal (Normal) mg/dL Urine Ketones 40 H (Negative) mg/dL Urine Blood Negative (Negative) Urine Nitrite Negative (Negative) Urine Bilirubin Negative (Negative) Urine Urobilinogen Normal (Normal) mg/dL Ur Leukocyte Esterase Negative (Negative) Urine Microscopic RBC 0-3 (0-3) per hpf Urine Microscopic WBC 0-3 (0-3) per hpf Ur Squamous Epith Cells Many H (None-Few) per lpf Urine Bacteria None Seen (None-Few) per hpf Hyaline Casts None Seen (None-Few) per lpf Ur Culture Indicated? NO (NO) Urine Test (Negative) Salicylates (15-30) mg/dL Urine Opiates Screen (Bxoegq=233) ng/mL Acetaminophen (10-30) mcg/mL Ur Barbiturates Screen (Dzrfiu=892) ng/mL Ur Phencyclidine Scrn (Cutoff=25) ng/mL Ur Amphetamines Screen (Afvlhm=3469) ng/mL U Benzodiazepines Scrn (Gegznt=167) ng/mL Urine Cocaine Screen (Cutoff= 300) ng/mL U Marijuana (THC) Screen (Cutoff = 50) ng/mL Ethyl Alcohol (0-10) mg/dL 10/23/16 10/23/16 Range/Units 09:42 09:42 WBC (4.3-11.1) K/mcL RBC (3.82-4.97) M/mcL Hgb (11.5-15.4) g/dL Hct (35.3-44.9) % MCV (83.0-100.0) fL MCH (28.0-33.3) pg MCHC (31.6-35.5) g/dL RDW (11.5-14.5) % Plt Count (140-400) K/mcL MPV (9.4-12.4) fL Immature Gran % (0-4) % Seg Neutrophils % % Lymphocytes % % Monocytes % % Eosinophils % % Basophils % % Neutrophils # (1.6-8.9) K/mcL Lymphocytes # (0.6-4.6) K/mcL Monocytes # (0.0-1.3) K/mcL Eosinophils # (0.0-0.6) K/mcL Basophils # (0.0-0.2) K/mcL Platelet Estimate (Normal) Anisocytosis (Not Present) Target Cells (Not Present) PT (9.4-12.1) Seconds INR APTT (26.0-36.0) Seconds Sodium (136-145) mEq/L Potassium (3.5-4.5) mEq/L Chloride (98-109) mEq/L Carbon Dioxide (19-29) mEq/L BUN (7-20) mg/dL Creatinine (0.57-1.11) mg/dL Est GFR ( Amer) (> 60) Est GFR (Non-Af Amer) (> 60) BUN/Creatinine Ratio (6-26) Glucose (70-99) mg/dL Calculated Osmolality (280-300) Lactic Acid (0.5-2.2) mmol/L Calcium (8.6-10.8) mg/dL Total Bilirubin (0.2-1.2) mg/dL AST (5-34) Units/L ALT (0-55) Units/L Alkaline Phosphatase (38-126) Units/L Troponin I (0-0.03) ng/mL Serum Total Protein (6.0-8.3) g/dL Albumin (3.5-5.0) g/dL Globulin (2.4-3.5) g/dL Albumin/Globulin Ratio (1.1-2.2) Lipase (8-78) Units/L Urine Color (Yellow) Urine Clarity (Clear) Urine pH (5.0-8.0) pH Units Ur Specific [place] (1.010-1.025) Urine Protein (Neg-Trace) mg/dL Urine Glucose (UA) (Normal) mg/dL Urine Ketones (Negative) mg/dL Urine Blood (Negative) Urine Nitrite (Negative) Urine Bilirubin (Negative) Urine Urobilinogen (Normal) mg/dL Ur Leukocyte Esterase (Negative) Urine Microscopic RBC (0-3) per hpf Urine Microscopic WBC (0-3) per hpf Ur Squamous Epith Cells (None-Few) per lpf Urine Bacteria (None-Few) per hpf Hyaline Casts (None-Few) per lpf Ur Culture Indicated? (NO) Urine Test Negative (Negative) Salicylates (15-30) mg/dL Urine Opiates Screen Negative (Rlqssb=509) ng/mL Acetaminophen (10-30) mcg/mL Ur Barbiturates Screen Negative (Ldsrms=557) ng/mL Ur Phencyclidine Scrn Negative (Cutoff=25) ng/mL Ur Amphetamines Screen Negative (Fyxtmb=3336) ng/mL U Benzodiazepines Scrn Positive H (Ouikze=635) ng/mL Urine Cocaine Screen Negative (Cutoff= 300) ng/mL U Marijuana (THC) Screen Negative (Cutoff = 50) ng/mL Ethyl Alcohol (0-10) mg/dL
[2016-10-23 09:34] LABS: Basophils % 0.1 %; Eosinophils % 0.1 %; Hematocrit 34.1 % (35.3-44.9); Immature Granulocytes % 0.4 % (0-4); Mean Corpuscular HGB Conc 34.9 g/dL (31.6-35.5); Mean Corpuscular Hemoglobin 28.2 pg (28.0-33.3); Mean Corpuscular Volume 80.8 fL (83.0-100.0); Mean Platelet Volume 8.3 fL (9.4-12.4); Monocytes # 0.6 K/mcL (0.0-1.3); Neutrophils # 4.7 K/mcL (1.6-8.9); Platelet Count 426 K/mcL (140-400); Red Blood Count 4.22 M/mcL (3.82-4.97); Red Cell Distribution Width 24.2 % (11.5-14.5); Segmented Neutrophils % 64.4 %
[2016-10-23 09:35] LABS: Hemoglobin 11.9 g/dL (11.5-15.4)
[2016-10-23 09:41] LABS: INR 1.1; Prothrombin Time 11.9 Seconds (9.4-12.1)
[2016-10-23 09:44] LABS: Activated Partial Thrombo Time 30.2 Seconds (26.0-36.0)
[2016-10-23 09:49] LABS: Alanine Aminotransferase 49 Units/L (0-55); Albumin 2.4 g/dL (3.5-5.0); Alkaline Phosphatase 167 Units/L (38-126); Aspartate Amino Transferase 127 Units/L (5-34); BUN/Creatinine Ratio 12 (6-26); Bilirubin,Total 0.9 mg/dL (0.2-1.2); Blood Urea Nitrogen 7 mg/dL (7-20); Calcium 7.2 mg/dL (8.6-10.8); Carbon Dioxide 17 mEq/L (19-29); Chloride 98 mEq/L (98-109); Ethanol 116 mg/dL (0-10); Globulin 2.3 g/dL (2.4-3.5); Glucose 74 mg/dL (70-99); Osmolality,Calculated 275 (280-300); Potassium 3.7 mEq/L (3.5-4.5); Sodium 134 mEq/L (136-145); Total Protein 4.7 g/dL (6.0-8.3); eGFR For African Americans > 60 (> 60); eGFR For Non-African Americans > 60 (> 60)
[2016-10-23 09:50] LABS: Acetaminophen < 1.0 mcg/mL (10-30); Lipase < 10 Units/L (8-78); Salicylate < 5.0 mg/dL (15-30)
[2016-10-23 09:53] LABS: Bilirubin,Urine Negative (Negative); Blood,Urine Negative (Negative); Clarity,Urine Clear (Clear); Color,Urine Yellow (Yellow); Glucose,Urine (UA) Normal (Normal); Ketones,Urine 40 mg/dL (Negative); Leukocyte Esterase,Urine Negative (Negative); Nitrite,Urine Negative (Negative); Protein,Urine Trace mg/dL (Neg-Trace); Specific Gravity,Urine 1.017 (1.010-1.025); Urobilinogen,Urine Normal (Normal)
[2016-10-23 09:56] LABS: Bacteria,Urine None Seen per hpf (None-Few); Hyaline Casts,Urine None Seen per lpf (None-Few); RBC,Urine 0-3 per hpf (0-3); Squamous Epithelial Cell,Urine Many per lpf (None-Few); WBC,Urine 0-3 per hpf (0-3)
[2016-10-23 09:58] LABS: Amphetamine Screen,Urine Negative ng/mL (Cutoff=1000); Barbiturate Screen,Urine Negative ng/mL (Cutoff=200); Benzodiazepines Screen,Urine Positive ng/mL (Cutoff=200); Cannabinoid Screen,Urine Negative ng/mL (Cutoff = 50); Cocaine Screen,Urine Negative ng/mL (Cutoff= 300); Opiate Screen,Urine Negative ng/mL (Cutoff=300); Phencyclidine Screen,Urine Negative ng/mL (Cutoff=25)
[2016-10-23 10:02] LABS: Anisocytosis 2+ (Not Present); Platelet Estimate Increased (Normal); Target Cells 1+ (Not Present)
[2016-10-23] MEDS ORDERED: Famotidine 20 MG/2 ML VIAL IVP ONE (10:09)
[2016-10-23] MEDS ORDERED: Naloxone 0.4 MG/ML INJ IVP PRN (12:53)
[2016-10-23] MEDS ORDERED: *HR* LORazepam 2 MG/ML VIAL IVP PRN ×2 (12:56)
[2016-10-23] MEDS ORDERED: Diphenoxylate/Atropine 1 TAB TABLET PO PRN (12:57)
[2016-10-23] MEDS ORDERED: Acetaminophen 325 MG TABLET PO PRN (13:15)
--- NOTE | 2016-10-23 13:45 | Internal Med History&Physical ---
<Bea Malhotra - Last Filed: 10/23/16 14:08> Date of Encounter: 10/23/16 Time of Encounter: 13:00 Assessment and Plan (1) Alcohol withdrawal Current visit: Yes Status: Acute 1 patient is wishing to stop drinking her last drink was last night. She is attempted several times in the past without success. She presents today with complaints of abdominal pain nausea vomiting and diarrhea she has some slight tremors. She denies any hallucinations suicidal ideations. She denies any past history of seizures Alcohol level on presentation is 116. We will continue to monitor for withdrawal symptoms we will start CIWA protocol 2 continue with Librium 3 fall precautions 4 continue with thiamine and folate Qualifiers: Complication of substance-induced condition: uncomplicated Qualified Code(s ): F10.230 - Alcohol dependence with withdrawal, uncomplicated (2) Bipolar disorder Current visit: No Status: Chronic Continue with home medications Qualifiers: Active/Remission status: in partial remission Most recent bipolar episode type: most recent episode unspecified type Qualified Code(s): F31.70 - Bipolar disorder, currently in remission, most recent episode unspecified (3) Cirrhosis Current visit: No Status: Chronic presently stable continue to monitor labs Qualifiers: Hepatic cirrhosis type: alcoholic cirrhosis Ascites presence: without ascites Qualified Code(s): K70.30 - Alcoholic cirrhosis of liver without ascites (4) Malnutrition Current visit: No Status: Chronic Patient has history of alcoholism We will consult dietary (5) Tobacco abuse Current visit: No Status: Chronic encourage patient to stop smoking nicotine patch (6) DVT prophylaxis Current visit: No Status: Acute SCD Internal Medicine - H&P: HPI Chief complaint: abd pain ATOH withdrawal Admitted From: Emergency Dept Plans for Post Hospital Care: Home History of present illness: Ms. Abdi is a 41 year old female past medical history of alcohol abuse cirrhosis gastric bypass surgery bipolar mood disorder. According to the patient she has been attempting to stop drinking her last drink was yesterday. She has been attempting to get sober off and on for the past 30 days however she states her insurance will not pay for treatment. She presented to the ER today complaining of alcohol withdrawal and abdominal pain. She has been experiencing nausea vomiting and diarrhea with some mild tremors. She has not been able to eat or drink keep anything down. She denies any homicidal suicidal ideations or hallucinations. She denies any chest pain shortness of breath fevers or chills. Lab work revealed no leukocytosis or alcohol level 116 she was positive for benzos on her tox screen lipase was less than 10 , AST was elevated which is related to her alcoholism CT of abdomen was obtained which revealed wall thickening along the stomach and duodenum likely related to infectious or inflammatory enteritis. Chest x-ray was clear EKG with no ST-T wave abnormalities she was given pain medication and IV fluids and has been admitted for further workup and evaluation. Presently patient appears cachectic and frail. She is alert appropriate she is crying somewhat no tremors noted at this time she is complaining of nausea and indicates that she has been throwing up unable to eat. Abdomen has diffuse tenderness upon palpitation no distention. Lung sounds are clear heart sounds are regular S1 and S2 with no rubs clicks, murmurs noted no pedal edema. She sensed rhythm on the monitor with a stable this time. I reviewed this case with Dr. Tomas who agrees with plan. Past Med Surg Social Fam HX - Past Medical History Medical history: cirrhosis, diabetes, GERD, hyperlipidemia, hypertension, liver disease, other Psychiatric history: ADHD, bipolar, prior suicide attempt, previous psychiatric hospitalization - Past Surgical History Surgical History: appendectomy, cholecystectomy, herniorrhaphy, hysterectomy, other - Social History Smoking Status: Current every day smoker Smokeless Tobacco Status: No Alcohol use: heavy, recent Drug use: opiates - Family History Father Living Status: Still Living Hx Family Cardiac Disorders: No Hx Family Respiratory Disorders: No Hx Family Cancer: No Hx Family GI Disorders: No Hx Family Endocrine Disorder: No Hx Family Neuromuscular Disorders: No Hx Family Neurologic Disorders: No Hx Family HEENT Disorders: No Hx Family Autoimmune Disorders: No Grandfather Living Status: Hx Family Cardiac Disorders: Yes (NE) Maternal Grandmother Living Status: Still Living Hx Family Cancer: Yes (Lung) Sister Living Status: Still Living Hx Family Cancer: Yes (Ovarian) Mother Adopted: No Living Status: Still Living Hx Family Cardiac Disorders: No Hx Family Respiratory Disorders: No Hx Family Cancer: No Hx Family GI Disorders: No Hx Family Endocrine Disorder: Yes (hypothyroidism) Hx Family Neuromuscular Disorders: No Hx Family Neurologic Disorders: No Hx Family HEENT Disorders: No Hx Family Autoimmune Disorders: No Internal Medicine - H&P: Meds Cyanocobalamin (B-12) [Vitamin B12] 1 ml IJ QMONTH 12/20/14 [History] OLANZapine [Zyprexa] 20 mg PO HS 12/20/14 [History] Sucralfate [Carafate] 1 gm PO QIDAC 12/20/14 [History] Promethazine [Phenergan] 25 mg PO Q8HR PRN #90 tablet 12/21/14 [Rx] Simethicone [Gas-X] 80 mg PO TID PRN 02/04/15 [History] Diphenoxylate/Atropine [Lomotil 2.5 mg/0.025 mg] 1 each PO QID PRN 07/28/15 [ History] Esomeprazole Magnesium [Nexium] 40 mg PO BID #60 capsule. 02/29/16 [Rx] Potassium Chloride [Klor-Con M15] 15 meq PO DAILY 05/02/16 [History] Lipase/Protease/Amylase [Virgilio Ramos 36,000 Units Capsule] 3 cap PO TIDWM 10/03/16 [History] Albuterol Sulfate [Proair Hfa] 2 puff IH Q6H PRN 10/17/16 [History] Dextroamphetamine/Amphetamine [Adderall 10 mg Tablet] 10 mg PO TID 10/17/16 [ History] Ergocalciferol (VITAMIN D2) [Vitamin D2] 50,000 unit PO TU 10/17/16 [History] Naltrexone Microspheres [Vivitrol] 380 mg IM QMONTH 10/17/16 [History] Ranitidine HCl [Zantac] 300 mg PO BID 10/17/16 [History] Chlordiazepoxide [Librium] 25 mg PO TID PRN #21 capsule 10/18/16 [Rx] Lactose-Reduced Food [Ensure Plus] 1 bottle PO TID #90 can 10/18/16 [Rx] Vilazodone HCl [Viibryd] 20 mg PO DAILY #30 tablet 10/18/16 [Rx] Allergies cephalexin Allergy (Verified 10/10/16 17:08) Rash clindamycin Allergy (Verified 10/10/16 17:08) Rash nalbuphine [From Nubain] Adverse Reaction (Verified 10/10/16 17:08) "didn't like the way it made me feel" All Systems PM: A 10-system review of systems was performed and is negative for pertinent findings except as documented above in the HPI. - Constitutional Constitutional: no chills, no fever(s), no night sweats - EENT Eyes: no change in vision, no discharge, no pain, no photophobia Ears: no ear discharge, no ear pain, no tinnitus Nose, mouth and throat: no dysphagia, no nasal discharge, no neck pain, no sore throat - Cardiovascular Cardiovascular ROS IM: no chest pain, no diaphoresis, no dyspnea, no lightheadedness, no palpitations, no syncope - Respiratory Respiratory: no cough, no dyspnea, no wheezing, no excessive phlegm production - Gastrointestinal Gastrointestinal: abdominal pain, diarrhea, nausea, vomiting - Genitourinary Genitourinary: no change in urinary stream, no dysuria, no flank pain, no hematuria - Musculoskeletal Musculoskeletal ROS IM: no numbness, no tingling - Integumentary Integumentary IM: no rash, no unusual bruising - Neurological Neurological ROS: no confusion, no convulsions, no focal weakness, no numbness, no tingling, no tremor(s) - Hematologic/Lymphatic Hematologic/Lymphatic: no easy bruising - Constitutional Vitals: Temp Pulse Resp BP Pulse Ox 98.1 F 105 16 113/75 98 10/23/16 08:31 10/23/16 11:30 10/23/16 11:30 10/23/16 11:30 10/23/16 11:30 General appearance: Present: cachectic, A&O X 3, answers questions appropriately - Head Head exam: Present: atraumatic, normocephalic - Eye Eye exam: Present: PERRL, conjuntiva pink, sclera anicteric Pupils: Present: PERRL - Neck Neck exam general surgery: Present: supple, trachea midline. Absent: lymphadenopathy - Respiratory Respiratory exam: Present: CTAB. Absent: accessory muscle use, rales, rhonchi, wheezes - Cardiovascular Cardiovascular exam: Present: RRR, +S1, +S2. Absent: diastolic murmur, gallop, rubs, systolic murmur - GI/Abdominal GI/Abdominal exam: Present: normal bowel sounds, soft, no peritoneal signs. Absent: distended, tenderness - Extremities Exam Extremities exam: Present: warm, radial pulses palpable and symetrical. Absent : calf tenderness, cyanotic, pedal edema - Neurological Exam Neurological exam: Present: CN II-XII intact, oriented X3, no focal deficits. Absent: pronater drift, facial droop, speech deficit - Skin Skin exam: Present: dry, intact Internal Med - H&P Results - Labs CBC & Chem 7: 10/23/16 09:25 10/23/16 09:25 Labs: Short CBC 10/23/16 Range/Units 09:25 WBC 7.3 D (4.3-11.1) K/mcL Hgb 11.9 D (11.5-15.4) g/dL Hct 34.1 L (35.3-44.9) % Plt Count 426 H (140-400) K/mcL Neutrophils # 4.7 (1.6-8.9) K/mcL BMP 10/23/16 09:25 Sodium 134 L Potassium 3.7 Chloride 98 Carbon Dioxide 17 L BUN 7 Creatinine 0.57 Glucose 74 Calcium 7.2 L Cardiac Enzymes 10/23/16 Range/Units 09:25 Troponin I 0.00 (0-0.03) ng/mL Liver Function 10/23/16 Range/Units 09:25 Total Bilirubin 0.9 (0.2-1.2) mg/dL AST 127 H (5-34) Units/L ALT 49 (0-55) Units/L Alkaline Phosphatase 167 H (38-126) Units/L Albumin 2.4 L (3.5-5.0) g/dL Urine 10/23/16 Range/Units 09:42 Urine Color Yellow (Yellow) Urine Clarity Clear (Clear) Urine pH 6.0 (5.0-8.0) pH Units Ur Specific [place] 1.017 (1.010-1.025) Urine Protein Trace (Neg-Trace) mg/dL Urine Glucose (UA) Normal (Normal) mg/dL - EKG Data EKG shows normal: sinus rhythm - Impressions ITS Impressions Chest X-Ray 10/23/16 08:31 IMPRESSION: No acute cardiopulmonary process. D/ / 10/23/2016 09:47:53 [facility] Provider: Shanelle Mon MD Abdomen/Pelvis CT 10/23/16 10:08 IMPRESSION: 1. There is enhancement and wall thickening noted along the stomach, duodenum, and proximal jejunal loops, likely related to an infectious/inflammatory enteritis. No evidence of bowel obstruction. 2. Fatty liver. 3. No other acute findings in the abdomen and pelvis. D/ / 10/23/2016 11:50:21 Hans Don MD / [facility] Interpreting Provider: Hans Don MD - Diagnostic Studies Other Images Additional comments: Chest X-Ray 10/23/16 08:31 IMPRESSION: No acute cardiopulmonary process. D/ / 10/23/2016 09:47:53 Shanelle Mon MD / [facility] Interpreting Provider: Shanelle Mon MD Abdomen/Pelvis CT 10/23/16 10:08 IMPRESSION: 1. There is enhancement and wall thickening noted along the stomach, duodenum, and proximal jejunal loops, likely related to an infectious/inflammatory enteritis. No evidence of bowel obstruction. 2. Fatty liver. 3. No other acute findings in the abdomen and pelvis. D/ / 10/23/2016 11:50:21 Hans Don MD / [facility] Interpreting Provider: Hans Don MD <Kiko Tomas T - Last Filed: 10/23/16 14:51> Date of Encounter: 10/23/16 Internal Medicine - H&P: HPI History of present illness: Ms. Abdi is a 41 year old female All Systems PM: A 10-system review of systems was performed and is negative for pertinent findings except as documented above in the HPI. - Constitutional Vitals: Temp Pulse Resp BP Pulse Ox 98.1 F 103 16 125/90 98 10/23/16 08:31 10/23/16 13:30 10/23/16 14:00 10/23/16 14:00 10/23/16 13:30 Internal Med - H&P Results - Labs CBC & Chem 7: 10/23/16 09:25 10/23/16 09:25 - Attending Attestation 41 Y/O F with multiple bowel surgeris in the past, sever protein-calorie malnutriton and recurrent admissions for opiate dependence and alcohol abuse She presented to ER with jitteriness and intoxication. Labs and imaging reviewed: transaminitis, lipase is WNL, enteritis by CT scan Agree with monitoring for alcohol withdrawal Resume home librium, check mag and Phos Rest of details as in [facility]' documentation
[2016-10-23] MEDS ORDERED: Nicotine 14 MG PATCH.TD24 TD SCH (14:00)
[2016-10-23] MEDS: Nicotine 21 MG PATCH.TD24 TD SCH (14:58)
[2016-10-23] MEDS: 0.9 % Sodium Chloride 1,000 ML IVC SCH (14:58)
[2016-10-23] MEDS: *HR* LORazepam 2 MG/ML VIAL IVP PRN (14:58)
[2016-10-23] MEDS: DEXTROAMPHETAMINE PO SCH ×2 (14:59→20:17)
[2016-10-23] MEDS: AMPHETAMINE PO SCH ×2 (14:59→20:17)
[2016-10-23] MEDS ORDERED: Famotidine 20 MG/2 ML VIAL IVP SCH (18:00)
[2016-10-23] MEDS: *HR* Promethazine 25 MG/ML VIAL IVP PRN (20:31)
[2016-10-23] MEDS: OLANZapine 10 MG TAB.RAPDIS PO SCH (20:32)
[2016-10-23] MEDS: Famotidine 20 MG TABLET PO SCH (20:32)
[2016-10-23] MEDS: *HR* HYDROcodone/Acet 5/325 mg TABLET PO PRN (20:53)
[2016-10-24 05:12] LABS: Basophils % 0.2 %; Eosinophils # 0.1 K/mcL (0.0-0.6); Hematocrit 32.4 % (35.3-44.9); Hemoglobin 11.1 g/dL (11.5-15.4); Immature Granulocytes % 0.3 % (0-4); Lymphocytes # 2.4 K/mcL (0.6-4.6); Mean Corpuscular HGB Conc 34.3 g/dL (31.6-35.5); Mean Corpuscular Volume 81.8 fL (83.0-100.0); Mean Platelet Volume 9.8 fL (9.4-12.4); Monocytes # 0.6 K/mcL (0.0-1.3); Monocytes % 11.1 %; Neutrophils # 2.6 K/mcL (1.6-8.9); Platelet Count 283 K/mcL (140-400); Red Blood Count 3.96 M/mcL (3.82-4.97); Red Cell Distribution Width 24.3 % (11.5-14.5); Segmented Neutrophils % 45.4 %
[2016-10-24 05:26] LABS: BUN/Creatinine Ratio 9 (6-26); Calcium 7.8 mg/dL (8.6-10.8); Carbon Dioxide 24 mEq/L (19-29); Chloride 103 mEq/L (98-109); Glucose 97 mg/dL (70-99); Magnesium 1.5 mg/dL (1.6-2.6); Osmolality,Calculated 275 (280-300); Sodium 134 mEq/L (136-145); eGFR For African Americans > 60 (> 60); eGFR For Non-African Americans > 60 (> 60)
[2016-10-24 05:27] LABS: Blood Urea Nitrogen 5 mg/dL (7-20)
[2016-10-24 06:08] LABS: Anisocytosis 2+ (Not Present); Hypochromasia Present (Not Present); Platelet Estimate Normal (Normal)
[2016-10-24] MEDS: Thiamine (B-1) 100 MG TABLET PO SCH (08:41)
[2016-10-24] MEDS: Folic Acid 1 MG TABLET PO SCH (08:41)
[2016-10-24] MEDS: Famotidine 20 MG TABLET PO SCH ×2 (08:41→21:09)
[2016-10-24] MEDS: DEXTROAMPHETAMINE PO SCH ×3 (08:43→21:11)
[2016-10-24] MEDS: (Vilazodone Hcl [Viibryd] 20 MG) PO SCH (08:43)
[2016-10-24] MEDS: AMPHETAMINE PO SCH ×3 (08:43→21:11)
[2016-10-24] MEDS: *HR* HYDROcodone/Acet 5/325 mg TABLET PO PRN ×2 (09:26→21:09)
[2016-10-24] MEDS: Nicotine 21 MG PATCH.TD24 TD SCH (09:27)
--- NOTE | 2016-10-24 11:09 | Internal Med Progress Note ---
Date of Encounter: 10/24/16 Time of Encounter: 10:45 - Assessment and plan (1) Alcohol withdrawal Current Visit: Yes Status: Acute Assessment and plan: Patient states that she would like to stop drinking. Last drink was last night. She states that when she goes home, she becomes stressed and begins drinking again. Last drink was last night. To arrival. She states that she has been at [facility] in [place] twice, she is not believe they will take her back due to insurance at this time. We will continue Librium, thiamine , folate, CIWA protocol, fall precautions. rn support services consult in. 1A sending rehabilitation resources. Qualifiers: Complication of substance-induced condition: uncomplicated Qualified Code(s ): F10.230 - Alcohol dependence with withdrawal, uncomplicated (2) Cirrhosis Current Visit: No Status: Chronic Assessment and plan: Stable. Patient states that she sees Dr. Manley. No ascites noted. Continue to monitor labs Qualifiers: Hepatic cirrhosis type: alcoholic cirrhosis Ascites presence: without ascites Qualified Code(s): K70.30 - Alcoholic cirrhosis of liver without ascites (3) Elevated LFTs Current Visit: No Status: Chronic Assessment and plan: AST elevated. Continue to monitor labs. (4) Abdominal pain Current Visit: Yes Status: Acute Assessment and plan: Patient reports chronic epigastric pain. Also reports nausea and vomiting. States the baseline pain is constantly and 8/10. Says that it becomes worse with eating. Patient states that she is hungry, however due to pain and is unable to eat. We will continue her normal home medications. Advance diet as tolerated. Qualifiers: Abdominal location: epigastric Qualified Code(s): R10.13 - Epigastric pain (5) Malnutrition Current Visit: Yes Status: Chronic Assessment and plan: Dietary consult. Albumin and BUN/creatinine low. Patient states that although she is hungry, she is unable to eat due to abdominal pain. (6) Tobacco abuse Current Visit: Yes Status: Chronic (7) Bipolar disorder Current Visit: Yes Status: Chronic Assessment and plan: History. Chronic. Continue home medications. Qualifiers: Active/Remission status: in partial remission Most recent bipolar episode type: most recent episode unspecified type Qualified Code(s): F31.70 - Bipolar disorder, currently in remission, most recent episode unspecified (8) Alcohol abuse Current Visit: Yes Status: Chronic Assessment and plan: Patient states that she has been drinking heavily, binge drinking for 3-4 years. States that she has been drinking a fifth of vodka daily for greater than 1 year. Last drink was last night. One A sending resources for withdrawal /rehabilitation. (9) Protein-calorie malnutrition, moderate Current Visit: No Status: Chronic Assessment and plan: Patient appears to be frail and cachectic. Patient states that she has lost about 140 pounds over the last few years. - Time Spent With Patient less than 15 minutes - Subjective Interval history: Patient was seen and examined about 10:45 AM. Patient reports epigastric pain with nausea and vomiting. She reports that she has had cirrhosis for "a couple of years". She says that she has been heavily drinking and binge drinking for 3-4 years, and for greater than one year she has been drinking a fifth of vodka a day. She says that she would like to stop drinking. Her last drink was last night prior to arrival. She says that she has been to [facility] in [place] twice and that since she now has Medicaid, she does not think that they will take her again. Patient states multiple times that she is embarrassed and feels badly because she keeps coming back and "one little thing sets me off and I started drinking again after I leave." Patient states that she wants to live and she wants to be a grandma. We will continue CIWA protocol , thiamine and folate, fall precautions, and Librium. - Constitutional Vitals: Temp Pulse Resp BP Pulse Ox 99.2 F 108 16 124/75 97 10/24/16 08:05 10/24/16 08:05 10/24/16 08:05 10/24/16 08:05 10/24/16 08:05 General appearance: Present: cachectic, A&O X 3, pleasant, underweight, answers questions appropriately - Head Head exam: Present: normal inspection - Eye Eye exam: Present: normal appearance, conjuntiva pink - ENT ENT exam: Present: mucous membranes moist, normal exam - Neck Neck exam general surgery: Present: normal inspection. Absent: lymphadenopathy , tenderness - Respiratory Respiratory exam: Present: CTAB. Absent: chest wall tenderness, rales, respiratory distress, rhonchi, stridor, wheezes - Cardiovascular Cardiovascular exam: Present: RRR, +S1, +S2. Absent: bradycardia, diastolic murmur, systolic murmur - Expanded Cardiovascular Exam Peripheral pulses: 2+: Dorsalis Pedis (L) PM, Dorsalis Pedis (R) PM - GI/Abdominal GI/Abdominal exam: Present: hepatomegaly, normal bowel sounds, soft, tenderness. Absent: distended - Extremities Exam Extremities exam: Present: normal capillary refill, warm, radial pulses palpable and symetrical. Absent: pedal edema, tenderness - Neurological Exam Neurological exam: Present: alert, oriented X3, no focal deficits. Absent: motor sensory deficit, facial droop, speech deficit - Skin Skin exam: Present: dry, intact, warm Internal Medicine: Result - Labs CBC & Chem 7: 10/24/16 04:43 10/24/16 04:43 Labs: Short CBC 10/24/16 Range/Units 04:43 WBC 5.8 (4.3-11.1) K/mcL Hgb 11.1 L (11.5-15.4) g/dL Hct 32.4 L (35.3-44.9) % Plt Count 283 (140-400) K/mcL Neutrophils # 2.6 (1.6-8.9) K/mcL BMP 10/24/16 04:43 Sodium 134 L Potassium 4.0 Chloride 103 Carbon Dioxide 24 BUN 5 L Creatinine 0.55 L Glucose 97 Calcium 7.8 L - ABG Interpretation ABG results: PT/INR, D-dimer PT 11.9 Seconds (9.4-12.1) 10/23/16 09:25 Consult Discharge Plan - Plan Referrals: NO,PCP [Primary Care Provider] -
[2016-10-24] MEDS: *HR* Morphine 2 MG/ML SYRINGE IVP PRN ×2 (11:29→17:49)
[2016-10-24] MEDS: *HR* LORazepam 2 MG/ML VIAL IVP PRN ×2 (12:32→18:01)
[2016-10-24] MEDS: 0.9 % Sodium Chloride 1,000 ML IVC SCH (12:34)
[2016-10-24] MEDS: *HR* Promethazine 25 MG/ML VIAL IVP PRN (13:46)
[2016-10-24] MEDS: OLANZapine 10 MG TAB.RAPDIS PO SCH (21:09)
[2016-10-25] MEDS: *HR* Morphine 2 MG/ML SYRINGE IVP PRN ×4 (00:04→21:42)
[2016-10-25] MEDS: *HR* HYDROcodone/Acet 5/325 mg TABLET PO PRN ×3 (03:34→16:47)
[2016-10-25 04:20] LABS: Basophils % 0.2 %; Eosinophils # 0.2 K/mcL (0.0-0.6); Eosinophils % 3.4 %; Hematocrit 31.1 % (35.3-44.9); Hemoglobin 10.3 g/dL (11.5-15.4); Immature Granulocytes % 0.8 % (0-4); Lymphocytes # 2.7 K/mcL (0.6-4.6); Lymphocytes % 57.2 %; Mean Corpuscular HGB Conc 33.1 g/dL (31.6-35.5); Mean Corpuscular Hemoglobin 28.1 pg (28.0-33.3); Mean Platelet Volume 8.8 fL (9.4-12.4); Monocytes # 0.3 K/mcL (0.0-1.3); Monocytes % 7.2 %; Neutrophils # 1.5 K/mcL (1.6-8.9); Platelet Count 218 K/mcL (140-400); Red Blood Count 3.66 M/mcL (3.82-4.97); Red Cell Distribution Width 24.1 % (11.5-14.5); Segmented Neutrophils % 31.2 %
[2016-10-25 04:47] LABS: Anisocytosis 2+ (Not Present); Platelet Estimate Normal (Normal)
[2016-10-25 05:33] LABS: BUN/Creatinine Ratio 15 (6-26); Blood Urea Nitrogen 8 mg/dL (7-20); Calcium 7.6 mg/dL (8.6-10.8); Carbon Dioxide 24 mEq/L (19-29); Chloride 107 mEq/L (98-109); Glucose 89 mg/dL (70-99); Osmolality,Calculated 282 (280-300); Potassium 3.5 mEq/L (3.5-4.5); Sodium 137 mEq/L (136-145); eGFR For African Americans > 60 (> 60); eGFR For Non-African Americans > 60 (> 60)
[2016-10-25] MEDS: *HR* Promethazine 25 MG/ML VIAL IVP PRN ×4 (06:23→21:42)
[2016-10-25] MEDS: Folic Acid 1 MG TABLET PO SCH (09:48)
[2016-10-25] MEDS: (Vilazodone Hcl [Viibryd] 20 MG) PO SCH (09:49)
[2016-10-25] MEDS: Nicotine 21 MG PATCH.TD24 TD SCH (09:49)
[2016-10-25] MEDS: AMPHETAMINE PO SCH ×3 (09:49→21:36)
[2016-10-25] MEDS: Famotidine 20 MG TABLET PO SCH ×2 (09:49→21:42)
[2016-10-25] MEDS: DEXTROAMPHETAMINE PO SCH ×3 (09:49→21:36)
[2016-10-25] MEDS: Thiamine (B-1) 100 MG TABLET PO SCH (09:50)
[2016-10-25] MEDS: *HR* LORazepam 2 MG/ML VIAL IVP PRN ×3 (09:59→19:44)
--- NOTE | 2016-10-25 12:36 | Electrocardiograph Report ---
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
--- NOTE | 2016-10-25 14:25 | Electrocardiograph Report ---
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
--- NOTE | 2016-10-25 16:31 | Internal Med Progress Note ---
Date of Encounter: 10/25/16 Time of Encounter: 09:40 - Assessment and plan (1) Alcohol withdrawal Current Visit: Yes Status: Acute Assessment and plan: Last drink was 2 nights ago. She states that when she goes home, she becomes stressed and begins drinking again. She states that she has been at [facility] in [place] twice, she is not believe they will take her back due to insurance at this time. We will continue Librium, thiamine, folate, CIWA protocol, fall precautions. Today patient is using the Ativan from the CIWA protocol for withdrawal symptoms. After patient is more stable and GI symptoms are resolved, patient can be discharged and look into residential treatment programs. social services counselor consult in. Qualifiers: Complication of substance-induced condition: uncomplicated Qualified Code(s ): F10.230 - Alcohol dependence with withdrawal, uncomplicated (2) Cirrhosis Current Visit: No Status: Chronic Assessment and plan: Stable. Continue to monitor labs Qualifiers: Hepatic cirrhosis type: alcoholic cirrhosis Ascites presence: without ascites Qualified Code(s): K70.30 - Alcoholic cirrhosis of liver without ascites (3) Elevated LFTs Current Visit: Yes Status: Chronic (4) Abdominal pain Current Visit: Yes Status: Acute Assessment and plan: Patient reports chronic epigastric pain and today reports what she describes as esophageal pain. She reports constant burning pain in her esophagus, states that she gets sharp, piercing pain with swallowing. Indicates that pain radiates all over her entire chest, only with swallowing. She states that she needs to see Dr. Weber and needs a scope. She also reports diffuse abdominal pain and she is tender in epigastric and right upper quadrant. She states that she is hungry and unable to eat, however, there empty ice cream and Jell-O containers on her bedside table and she is able to drink water. She denies nausea and vomiting today. Primary nurse reports that she is requiring when necessary pain medication every time it is available. She reports that her last scope was done by Dr. Forrest a few months ago when she had been drinking, she attempted to take a drink from a water bottle with a loose lid and instep swallowing the lid. I spoke with Dr. Trevizo by phone, he is covering for GI. He said he will see the patient today and has ordered an upper GI that has been completed, results are not available at this time. We will continue her normal home medications. Advance diet as tolerated. Qualifiers: Abdominal location: epigastric Qualified Code(s): R10.13 - Epigastric pain (5) Malnutrition Current Visit: Yes Status: Chronic Assessment and plan: Dietary consult. (6) Tobacco abuse Current Visit: Yes Status: Chronic Assessment and plan: Patient states that she smokes a pack a day. She is interested in going to a rehabilitation facility that allows smoking. She is not interested in smoking cessation at this time. (7) Bipolar disorder Current Visit: Yes Status: Chronic Assessment and plan: Chronic. Continue home medications. Qualifiers: Active/Remission status: in partial remission Most recent bipolar episode type: most recent episode unspecified type Qualified Code(s): F31.70 - Bipolar disorder, currently in remission, most recent episode unspecified (8) Alcohol abuse Current Visit: Yes Status: Chronic Assessment and plan: Patient states that she has been drinking heavily, binge drinking for 3-4 years. States that she has been drinking a fifth of vodka daily for greater than 1 year. Patient was requesting inpatient rehabilitation facility. We will be available to discuss this once abdominal pain is under control. (9) Protein-calorie malnutrition, moderate Current Visit: No Status: Chronic Assessment and plan: Patient appears to be frail and cachectic. Patient states that she has lost about 140 pounds over the last few years. Dietary has seen patient and ordered a soft diet with supplement shakes. - Time Spent With Patient less than 15 minutes - Subjective Interval history: Patient was seen and examined this morning at about 9:40 AM. Patient does not appear to be doing any better today than she was yesterday. She reports diffuse anterior rib pain, she states that she cannot eat. She reports pain with swallowing, describes it as sharp and piercing/burning in her chest and esophagus. She says that she needs another scope. I spoke with Dr. Sen by phone, he is familiar with this patient. He ordered an upper GI. The results are not available at this time. Dr. Sen states that he will see the patient today, I will wait on his consultation and recommendations. She also reports diffuse abdominal pain and her entire upper abdomen is tender to palpation. She says that she is hungry and unable to eat, however there are empty ice cream and Jell-O containers on her bedside table. She is also able to drink water. - Constitutional Vitals: Temp Pulse Resp BP Pulse Ox 98.1 F 104 14 127/90 100 10/25/16 14:38 10/25/16 14:38 10/25/16 14:38 10/25/16 14:38 10/25/16 14:38 General appearance: Present: cachectic, cooperative, A&O X 3, pleasant, no acute distress, underweight, answers questions appropriately - Head Head exam: Present: normal inspection - Eye Eye exam: Present: normal appearance, conjuntiva pink - ENT ENT exam: Present: mucous membranes moist, normal exam, normal external ear exam - Neck Neck exam general surgery: Present: normal inspection. Absent: lymphadenopathy , tenderness - Respiratory Respiratory exam: Present: decreased breath sounds, CTAB. Absent: chest wall tenderness, rales, respiratory distress, rhonchi, stridor, wheezes, tachypnea - Cardiovascular Cardiovascular exam: Present: RRR, +S1, +S2, tachycardia. Absent: clicks, diastolic murmur, systolic murmur - GI/Abdominal GI/Abdominal exam: Present: hepatomegaly, hyperactive bowel sounds, tenderness. Absent: mass, pulsatile mass Additional comments: Tender in epigastric and right upper quadrant - Extremities Exam Extremities exam: Present: normal capillary refill, warm, radial pulses palpable and symetrical. Absent: pedal edema, tenderness - Neurological Exam Neurological exam: Present: alert, oriented X3, no focal deficits. Absent: facial droop, speech deficit - Skin Skin exam: Present: dry, pallor, warm. Absent: normal color Additional comments: Patient appears sallow Internal Medicine: Result - Labs CBC & Chem 7: 10/25/16 03:50 10/25/16 03:50 Labs: Short CBC 10/25/16 Range/Units 03:50 WBC 4.7 (4.3-11.1) K/mcL Hgb 10.3 L (11.5-15.4) g/dL Hct 31.1 L (35.3-44.9) % Plt Count 218 (140-400) K/mcL Neutrophils # 1.5 L (1.6-8.9) K/mcL BMP 10/25/16 03:50 Sodium 137 Potassium 3.5 Chloride 107 Carbon Dioxide 24 BUN 8 Creatinine 0.52 L Glucose 89 Calcium 7.6 L - ABG Interpretation ABG results: PT/INR, D-dimer PT 11.9 Seconds (9.4-12.1) 10/23/16 09:25 Consult Discharge Plan - Plan Referrals: NO,PCP [Primary Care Provider] -
[2016-10-25] MEDS: OLANZapine 10 MG TAB.RAPDIS PO SCH (21:42)
[2016-10-26] MEDS: *HR* HYDROcodone/Acet 5/325 mg TABLET PO PRN ×4 (00:01→20:30)
[2016-10-26] MEDS: *HR* LORazepam 2 MG/ML VIAL IVP PRN ×5 (00:01→20:17)
[2016-10-26] MEDS: *HR* Morphine 2 MG/ML SYRINGE IVP PRN ×4 (04:13→22:58)
[2016-10-26 05:18] LABS: Aspartate Amino Transferase 44 Units/L (5-34); BUN/Creatinine Ratio 14 (6-26); Blood Urea Nitrogen 7 mg/dL (7-20); Calcium 7.8 mg/dL (8.6-10.8); Carbon Dioxide 22 mEq/L (19-29); Chloride 108 mEq/L (98-109); Glucose 95 mg/dL (70-99); Osmolality,Calculated 286 (280-300); Potassium 3.7 mEq/L (3.5-4.5); Sodium 139 mEq/L (136-145); eGFR For African Americans > 60 (> 60); eGFR For Non-African Americans > 60 (> 60)
[2016-10-26 05:24] LABS: Basophils % 0.4 %; Eosinophils # 0.4 K/mcL (0.0-0.6); Eosinophils % 7.2 %; Hematocrit 30.3 % (35.3-44.9); Hemoglobin 10.4 g/dL (11.5-15.4); Immature Granulocytes % 0.8 % (0-4); Immature Platelets 4.6 % (1.1-6.1); Lymphocytes # 2.8 K/mcL (0.6-4.6); Lymphocytes % 56.7 %; Mean Corpuscular HGB Conc 34.3 g/dL (31.6-35.5); Mean Corpuscular Hemoglobin 28.5 pg (28.0-33.3); Mean Platelet Volume 10.2 fL (9.4-12.4); Monocytes # 0.4 K/mcL (0.0-1.3); Monocytes % 8.2 %; Neutrophils # 1.3 K/mcL (1.6-8.9); Platelet Count 186 K/mcL (140-400); Red Blood Count 3.65 M/mcL (3.82-4.97); Segmented Neutrophils % 26.7 %
[2016-10-26 05:51] LABS: Hypochromasia Present (Not Present); Platelet Estimate Normal (Normal)
[2016-10-26] MEDS: Famotidine 20 MG TABLET PO SCH ×2 (07:57→20:22)
[2016-10-26] MEDS: Thiamine (B-1) 100 MG TABLET PO SCH (07:57)
[2016-10-26] MEDS: Folic Acid 1 MG TABLET PO SCH (07:57)
[2016-10-26] MEDS: Nicotine 21 MG PATCH.TD24 TD SCH (07:58)
[2016-10-26] MEDS: AMPHETAMINE PO SCH ×3 (07:58→20:27)
[2016-10-26] MEDS: (Vilazodone Hcl [Viibryd] 20 MG) PO SCH (07:58)
[2016-10-26] MEDS: DEXTROAMPHETAMINE PO SCH ×3 (07:58→20:27)
[2016-10-26] MEDS: *HR* Promethazine 25 MG/ML VIAL IVP PRN ×3 (09:54→18:57)
--- NOTE | 2016-10-26 14:00 | Event Note ---
Date of Encounter: 10/26/16 Time of Encounter: 13:30 UGI complete and shows normal esophageal motility, small gastric ulcer, no evidence of obstruction. Recommend continued treatment with PPI and Carafate as ordered. No indication for EGD at this time. Last EGD complete in [facility] of [address] Becker for esophageal foreign body. Please call with any further questions or concerns.
--- NOTE | 2016-10-26 20:13 | Internal Med Progress Note ---
Date of Encounter: 10/26/16 Time of Encounter: 20:11 - Assessment and plan (1) Alcoholic cirrhosis of liver without ascites Current Visit: Yes Status: Chronic (2) Alcohol abuse Current Visit: Yes Status: Chronic (3) Abdominal pain Current Visit: Yes Status: Acute Qualifiers: Abdominal location: epigastric Qualified Code(s): R10.13 - Epigastric pain - Subjective Interval history: Valerie Shepherd is a 41-year-old female who had recurrent admissions in an attempt to quit alcohol. She is on alcohol withdrawal protocol and seems quite asymptomatic in this regard. No withdrawal tremors or asterixis noted mentally she is pretty sound. Her most of the clinical and lab workup is unremarkable and mild abnormalities of liver enzymes expected considering the fact that she is expected to have alcoholic liver disease. 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 She can be discharged - Constitutional Vitals: Temp Pulse Resp BP Pulse Ox 98.0 F 121 16 109/63 99 10/26/16 19:49 10/26/16 19:49 10/26/16 19:49 10/26/16 19:49 10/26/16 19:49 General appearance: Present: cachectic, cooperative, A&O X 3, pleasant, no acute distress, underweight, answers questions appropriately - Head Head exam: Present: atraumatic, normocephalic - Eye Eye exam: Present: PERRL, conjuntiva pink, sclera anicteric Pupils: Present: PERRL - Neck Neck exam general surgery: Present: supple, trachea midline. Absent: lymphadenopathy - Respiratory Respiratory exam: Present: CTAB. Absent: accessory muscle use, rales, rhonchi, wheezes - Cardiovascular Cardiovascular exam: Present: RRR, +S1, +S2. Absent: diastolic murmur, gallop, rubs, systolic murmur - GI/Abdominal GI/Abdominal exam: Present: normal bowel sounds, soft, no peritoneal signs. Absent: distended, tenderness - Extremities Exam Extremities exam: Present: warm, radial pulses palpable and symetrical. Absent : calf tenderness, cyanotic, pedal edema - Neurological Exam Neurological exam: Present: CN II-XII intact, oriented X3, no focal deficits. Absent: pronater drift, facial droop, speech deficit - Skin Skin exam: Present: dry, intact Internal Medicine: Result - Labs CBC & Chem 7: 10/26/16 04:55 10/26/16 04:55 Labs: Short CBC 10/26/16 Range/Units 04:55 WBC 4.9 (4.3-11.1) K/mcL Hgb 10.4 L (11.5-15.4) g/dL Hct 30.3 L (35.3-44.9) % Plt Count 186 (140-400) K/mcL Neutrophils # 1.3 L (1.6-8.9) K/mcL BMP 10/26/16 04:55 Sodium 139 Potassium 3.7 Chloride 108 Carbon Dioxide 22 BUN 7 Creatinine 0.49 L Glucose 95 Calcium 7.8 L Liver Function 10/26/16 Range/Units 04:55 AST 44 H (5-34) Units/L - ABG Interpretation ABG results: PT/INR, D-dimer PT 11.9 Seconds (9.4-12.1) 10/23/16 09:25 Consult Discharge Plan - Plan Referrals: NO,PCP [Primary Care Provider] -
[2016-10-26] MEDS: OLANZapine 10 MG TAB.RAPDIS PO SCH (20:22)
[2016-10-27] MEDS ORDERED: Water for inj. (sterile) 10 ML IV ONE (03:26)
[2016-10-27] MEDS: *HR* HYDROcodone/Acet 5/325 mg TABLET PO PRN ×2 (03:28→11:13)
[2016-10-27] MEDS: *HR* LORazepam 2 MG/ML VIAL IVP PRN (03:30)
[2016-10-27 03:36] LABS: Basophils % 0.2 %; Eosinophils # 0.4 K/mcL (0.0-0.6); Eosinophils % 6.8 %; Hematocrit 31.6 % (35.3-44.9); Hemoglobin 10.5 g/dL (11.5-15.4); Immature Granulocytes % 0.9 % (0-4); Lymphocytes # 2.6 K/mcL (0.6-4.6); Lymphocytes % 47.7 %; Mean Corpuscular HGB Conc 33.2 g/dL (31.6-35.5); Mean Corpuscular Hemoglobin 28.2 pg (28.0-33.3); Mean Corpuscular Volume 84.9 fL (83.0-100.0); Monocytes # 0.5 K/mcL (0.0-1.3); Monocytes % 8.7 %; Neutrophils # 1.9 K/mcL (1.6-8.9); Platelet Count 200 K/mcL (140-400); Red Blood Count 3.72 M/mcL (3.82-4.97); Red Cell Distribution Width 24.5 % (11.5-14.5); Segmented Neutrophils % 35.7 %
[2016-10-27 03:50] LABS: Alanine Aminotransferase 31 Units/L (0-55); Albumin/Globulin Ratio 0.9 (1.1-2.2); Alkaline Phosphatase 130 Units/L (38-126); Aspartate Amino Transferase 45 Units/L (5-34); BUN/Creatinine Ratio 17 (6-26); Bilirubin,Total 0.3 mg/dL (0.2-1.2); Blood Urea Nitrogen 8 mg/dL (7-20); Carbon Dioxide 26 mEq/L (19-29); Chloride 108 mEq/L (98-109); Globulin 2.2 g/dL (2.4-3.5); Glucose 84 mg/dL (70-99); Magnesium 1.7 mg/dL (1.6-2.6); Osmolality,Calculated 286 (280-300); Potassium 4.2 mEq/L (3.5-4.5); Sodium 139 mEq/L (136-145); Total Protein 4.1 g/dL (6.0-8.3); eGFR For African Americans > 60 (> 60); eGFR For Non-African Americans > 60 (> 60)
[2016-10-27 03:51] LABS: Albumin 1.9 g/dL (3.5-5.0)
[2016-10-27 04:00] LABS: Anisocytosis 3+ (Not Present); Macrocytosis Present (Not Present); Microcytosis Present (Not Present)
[2016-10-27 04:01] LABS: Platelet Estimate Normal (Normal); Poikilocytosis 1+ (Not Present); Target Cells 1+ (Not Present)
[2016-10-27] MEDS: *HR* Morphine 2 MG/ML SYRINGE IVP PRN (07:50)
[2016-10-27] MEDS: Famotidine 20 MG TABLET PO SCH (07:51)
[2016-10-27] MEDS: Thiamine (B-1) 100 MG TABLET PO SCH (07:51)
[2016-10-27] MEDS: Folic Acid 1 MG TABLET PO SCH (07:51)
[2016-10-27] MEDS: Nicotine 21 MG PATCH.TD24 TD SCH (07:51)
[2016-10-27] MEDS: DEXTROAMPHETAMINE PO SCH (07:52)
[2016-10-27] MEDS: (Vilazodone Hcl [Viibryd] 20 MG) PO SCH (07:52)
[2016-10-27] MEDS: AMPHETAMINE PO SCH (07:52)
[2016-10-27] MEDS: *HR* Promethazine 25 MG/ML VIAL IVP PRN (09:07)
[2016-10-27 11:43] VITALS: BP 113/59
--- NOTE | 2016-10-27 14:00 | Discharge Summary ---
Date of Encounter: 10/27/16 Time of Encounter: 13:57 - Discharge Diagnosis (1) Alcoholic cirrhosis of liver without ascites Priority: Secondary Status: Chronic (2) Alcohol abuse Priority: Primary Status: Chronic (3) Abdominal pain Priority: Primary Status: Acute Qualifiers: Abdominal location: epigastric Qualified Code(s): R10.13 - Epigastric pain - Discharge Medications Home Medications: Cyanocobalamin (B-12) [Vitamin B12] 1 ml IJ QMONTH 12/20/14 [History] OLANZapine [Zyprexa] 20 mg PO HS 12/20/14 [History] Sucralfate [Carafate] 1 gm PO QIDAC 12/20/14 [History] Promethazine [Phenergan] 25 mg PO Q8HR PRN #90 tablet 12/21/14 [Rx] Simethicone [Gas-X] 80 mg PO TID PRN 02/04/15 [History] Diphenoxylate/Atropine [Lomotil 2.5 mg/0.025 mg] 1 each PO QID PRN 07/28/15 [ History] Esomeprazole Magnesium [Nexium] 40 mg PO BID #60 capsule. 02/29/16 [Rx] Potassium Chloride [Klor-Con M15] 15 meq PO DAILY 05/02/16 [History] Lipase/Protease/Amylase [Virgilio Ramos 36,000 Units Capsule] 3 cap PO TIDWM 10/03/16 [History] Albuterol Sulfate [Proair Hfa] 2 puff IH Q6H PRN 10/17/16 [History] Dextroamphetamine/Amphetamine [Adderall 10 mg Tablet] 10 mg PO TID 10/17/16 [ History] Ergocalciferol (VITAMIN D2) [Vitamin D2] 50,000 unit PO TU 10/17/16 [History] Naltrexone Microspheres [Vivitrol] 380 mg IM QMONTH 10/17/16 [History] Ranitidine HCl [Zantac] 300 mg PO BID 10/17/16 [History] Chlordiazepoxide [Librium] 25 mg PO TID PRN #21 capsule 10/18/16 [Rx] Lactose-Reduced Food [Ensure Plus] 1 bottle PO TID #90 can 10/18/16 [Rx] Vilazodone HCl [Viibryd] 20 mg PO DAILY #30 tablet 10/18/16 [Rx] Allergies/Adverse Reactions: Allergies cephalexin Allergy (Verified 10/10/16 17:08) Rash clindamycin Allergy (Verified 10/10/16 17:08) Rash nalbuphine [From Nubain] Adverse Reaction (Verified 10/10/16 17:08) "didn't like the way it made me feel" Date of admission: 10/23/16 14:00 Primary care physician: PCP NO Consults: 10/23/16 18:00 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 Time Notified: 11:53 Call Completed: Yes 10/25/16 16:04 Consult to Surgery [CONS] Routine Consulting Provider: Surgery Parul Surgical Reason for Consult: Pt reports esophageal pain, sharp, with swallowing. Pt states that she is unable to eat due to pain and is stating that she needs a scope. I spoke with Dr. Trevizo by phone. Time Notified: 13:40 Call Completed: Yes Discharging clinician: Erich Fisher Anticipated date of discharge: 10/27/16 - Patient Status Disposition: Home, Self-Care Overall status at discharge: patient is progressing back to baseline - Discharge Instructions Follow Up With: NO,PCP [Primary Care Provider] - - Diet and Activity Activity: resume usual activities as tolerated Diet: advance to your usual diet (Patient to get herself in detox program information is provided and she will follow with her psychiatrist today.) Hospital course: Valerie Shepherd is a 41-year-old female who had recurrent admissions in an attempt to quit alcohol. She is on alcohol withdrawal protocol and seems quite asymptomatic in this regard. No withdrawal tremors or asterixis noted mentally she is pretty sound. Her most of the clinical and lab workup is unremarkable and mild abnormalities of liver enzymes expected considering the fact that she is expected to have alcoholic liver disease. 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 Detailed discussion with patient and encourage her to remain involved in her care along with her consultants and continue her efforts in quitting alcohol addiction. She can be discharged - Time Spent with Patient Total time spent providing and/or coordinating discharge services: Greater than 30 minutes - Constitutional Vitals: Temp Pulse Resp BP Pulse Ox 97.8 F 122 14 113/59 96 10/27/16 11:42 10/27/16 11:42 10/27/16 11:42 10/27/16 11:42 10/27/16 11:42 General appearance: Present: cachectic, cooperative, A&O X 3, pleasant, no acute distress, underweight, answers questions appropriately - Head Head exam: Present: atraumatic, normocephalic - Eye Eye exam: Present: PERRL, conjuntiva pink, sclera anicteric Pupils: Present: PERRL - Neck Neck exam general surgery: Present: supple, trachea midline. Absent: lymphadenopathy - Respiratory Respiratory exam: Present: CTAB. Absent: accessory muscle use, rales, rhonchi, wheezes - Cardiovascular Cardiovascular exam: Present: RRR, +S1, +S2. Absent: diastolic murmur, gallop, rubs, systolic murmur - GI/Abdominal GI/Abdominal exam: Present: normal bowel sounds, soft, no peritoneal signs. Absent: distended, tenderness - Extremities Exam Extremities exam: Present: warm, radial pulses palpable and symetrical. Absent : calf tenderness, cyanotic, pedal edema - Neurological Exam Neurological exam: Present: CN II-XII intact, oriented X3, no focal deficits. Absent: pronater drift, facial droop, speech deficit - Skin Skin exam: Present: dry, intact
[2016-10-27] MEDS ORDERED: NALTREXONE MICROSPHERES 380 MG IM SCH (14:15)
[2016-10-27] MEDS ORDERED: Cyanocobalamin (B-12) 1,000 MCG/ML VIAL IM SCH (14:15)
[2016-10-27] MEDS ORDERED: NON-FORMULARY MEDICATION 1 EACH EACH (Lactose-Reduced Food [Ensure Plus] 1 BOTTLE) PO SCH (15:00)
--- NOTE | 2016-10-27 16:37 | General Surgery Progress Note ---
Date of Encounter: 10/27/16 Objective Vital Signs - Last 8 Hours Temp Pulse Resp BP Pulse Ox 10/27/16 11:42 97.8 F 122 14 113/59 96 Intake and Output 10/27/16 10/27/16 10/27/16 07:59 15:59 23:59 Intake Total 50 / 50 Balance 50 / 50 Intake: Oral 50 / 50 Other: Meal Lunch Percent of Meal Consumed 100% Stool Size Moderate Stool Consistency loose # Voids 2 1 # Bowel Movements 1 Weight 54.794 kg Blood Glucose* 92 165 Patient Weight 10/27/16 23:59 Weight 54.794 kg - Labs 10/27/16 03:19 10/27/16 03:19 Diabetes panel 10/27/16 Range/Units 03:19 Sodium 139 (136-145) mEq/L Potassium 4.2 (3.5-4.5) mEq/L Chloride 108 (98-109) mEq/L Carbon Dioxide 26 (19-29) mEq/L BUN 8 (7-20) mg/dL Creatinine 0.46 L (0.57-1.11) mg/dL Glucose 84 (70-99) mg/dL Calcium 8.0 L (8.6-10.8) mg/dL AST 45 H (5-34) Units/L ALT 31 (0-55) Units/L Alkaline Phosphatase 130 H (38-126) Units/L Albumin 1.9 L (3.5-5.0) g/dL Calcium panel 10/27/16 Range/Units 03:19 Calcium 8.0 L (8.6-10.8) mg/dL Albumin 1.9 L (3.5-5.0) g/dL Pituitary panel 10/27/16 Range/Units 03:19 Sodium 139 (136-145) mEq/L Potassium 4.2 (3.5-4.5) mEq/L Chloride 108 (98-109) mEq/L Carbon Dioxide 26 (19-29) mEq/L BUN 8 (7-20) mg/dL Creatinine 0.46 L (0.57-1.11) mg/dL Glucose 84 (70-99) mg/dL Calcium 8.0 L (8.6-10.8) mg/dL Adrenal panel 10/27/16 Range/Units 03:19 Sodium 139 (136-145) mEq/L Potassium 4.2 (3.5-4.5) mEq/L Chloride 108 (98-109) mEq/L Carbon Dioxide 26 (19-29) mEq/L BUN 8 (7-20) mg/dL Creatinine 0.46 L (0.57-1.11) mg/dL Glucose 84 (70-99) mg/dL Calcium 8.0 L (8.6-10.8) mg/dL Total Bilirubin 0.3 (0.2-1.2) mg/dL AST 45 H (5-34) Units/L ALT 31 (0-55) Units/L Alkaline Phosphatase 130 H (38-126) Units/L Albumin 1.9 L (3.5-5.0) g/dL Consult Discharge Plan - Plan Instructions: Hydrocodone/Acetaminophen (By mouth), Pantoprazole (By mouth), Antacid, Calcium and Magnesium (By mouth), Regular Diet (DC), Abuse of Alcohol ( DC), Alcohol Withdrawal (DC) Referrals: NO,PCP [Primary Care Provider] - Prescriptions: Calcium Carbonate [Tums] 1,000 mg PO QID #30 tab.chew HYDROcodone/Acet 5/325 mg [[place] 5-325 mg] 1 tab PO BID PRN #10 tab PRN Reason: Pain Pantoprazole Sodium [Protonix] 40 mg PO BID #60 tablet.
== END 2016-10-27 16:14 | disposition home or self-care (01) ==
LOC: EMEROO 08:29 → 3BNU 08:29
PROVIDERS: ADMIT Nurse Practitioner Family; ATTEND Nurse Practitioner Family

== ENCOUNTER 2016-11-05 11:06 | Inpatient (IN) ==
[2016-11-05] MEDS: 0.9 % Sodium Chloride 1,000 ML IVC ONE ×2 (11:13→18:33)
[2016-11-05] MEDS ORDERED: *HR* Rocuronium Bromide 50 MG/5 ML VIAL IVP ONE (11:49)
[2016-11-05] MEDS ORDERED: *HR* Etomidate 20 MG/10 ML AMPUL IVP ONE (11:49)
[2016-11-05] MEDS ORDERED: 0.9 % Sodium Chloride 1,000 ML IVC ONE ×2 (11:55→12:03)
[2016-11-05 11:59] LABS: Bilirubin,Urine Small (Negative); Blood,Urine Negative (Negative); Clarity,Urine Clear (Clear); Color,Urine Dark Yellow (Yellow); Glucose,Urine (UA) Normal (Normal); Ketones,Urine 40 mg/dL (Negative); Leukocyte Esterase,Urine Negative (Negative); Nitrite,Urine Negative (Negative); Protein,Urine Trace mg/dL (Neg-Trace); Specific Gravity,Urine 1.017 (1.010-1.025)
[2016-11-05] MEDS ORDERED: Propofol 500 MG/50 ML INFUS..BTL ONE (12:02)
[2016-11-05 12:04] LABS: Basophils % 0.3 %; Eosinophils % 0.3 %; Hematocrit 26.7 % (35.3-44.9); Hemoglobin 8.9 g/dL (11.5-15.4); Immature Granulocytes % 0.8 % (0-4); Immature Platelets 1.7 % (1.1-6.1); Lymphocytes # 1.1 K/mcL (0.6-4.6); Mean Corpuscular HGB Conc 33.3 g/dL (31.6-35.5); Mean Corpuscular Hemoglobin 28.8 pg (28.0-33.3); Mean Corpuscular Volume 86.4 fL (83.0-100.0); Mean Platelet Volume 8.4 fL (9.4-12.4); Monocytes # 0.4 K/mcL (0.0-1.3); Monocytes % 5.2 %; Platelet Count 281 K/mcL (140-400); Red Blood Count 3.09 M/mcL (3.82-4.97); Red Cell Distribution Width 23.7 % (11.5-14.5); Segmented Neutrophils % 79.4 %
[2016-11-05 12:05] LABS: Amphetamine Screen,Urine Negative ng/mL (Cutoff=1000); Barbiturate Screen,Urine Negative ng/mL (Cutoff=200); Benzodiazepines Screen,Urine Positive ng/mL (Cutoff=200); Cannabinoid Screen,Urine Negative ng/mL (Cutoff = 50); Cocaine Screen,Urine Negative ng/mL (Cutoff= 300); Opiate Screen,Urine Negative ng/mL (Cutoff=300); Phencyclidine Screen,Urine Negative ng/mL (Cutoff=25)
[2016-11-05 12:12] LABS: ABG Base Excess -9.4 mEq/L (-2.0 to 3.0); ABG HCO3 16.3 mEQ/L (21-27); ABG Oxygen Saturation 99 % (95-98); ABG PCO2 34 mmHg (35-45); ABG PH 7.29 pH Units (7.32-7.45); ABG PO2 128 mmHg (85-104); ABG TCO2 17.3 mEq/L (20-26); Blood Gas FiO2 30 %
[2016-11-05 12:14] LABS: INR 1.2; Prothrombin Time 12.7 Seconds (9.4-12.1)
[2016-11-05 12:17] LABS: Activated Partial Thrombo Time 30.5 Seconds (26.0-36.0)
[2016-11-05 12:19] LABS: Alanine Aminotransferase 91 Units/L (0-55); Albumin/Globulin Ratio 0.9 (1.1-2.2); Alkaline Phosphatase 230 Units/L (38-126); Aspartate Amino Transferase 287 Units/L (5-34); BUN/Creatinine Ratio 16 (6-26); Bilirubin,Direct 0.8 mg/dL (0.0-0.5); Bilirubin,Indirect 0.3 mg/dL (0.0-1.2); Blood Urea Nitrogen 7 mg/dL (7-20); Carbon Dioxide 18 mEq/L (19-29); Chloride 104 mEq/L (98-109); Creatine Kinase 152 Units/L (29-168); Ethanol 144 mg/dL (0-10); Globulin 1.9 g/dL (2.4-3.5); Glucose 116 mg/dL (70-99); Osmolality,Calculated 283 (280-300); Potassium 3.2 mEq/L (3.5-4.5); eGFR For African Americans > 60 (> 60); eGFR For Non-African Americans > 60 (> 60)
[2016-11-05 12:20] LABS: Albumin 1.8 g/dL (3.5-5.0); Bilirubin,Total 1.1 mg/dL (0.2-1.2); Calcium 6.2 mg/dL (8.6-10.8); Sodium 137 mEq/L (136-145); Total Protein 3.7 g/dL (6.0-8.3)
--- NOTE | 2016-11-05 12:31 | Emergency Department Note ---
Disposition Clinical Impression: Malnutrition Alcohol intoxication Qualifiers: Complication of substance-induced condition: with unspecified complication Qualified Code(s): F10.929 - Alcohol use, unspecified with intoxication, unspecified Anemia Qualifiers: Anemia type: iron deficiency Iron deficiency anemia type: unspecified iron deficiency Qualified Code(s): D50.9 - Iron deficiency anemia, unspecified Altered mental status Qualifiers: Altered mental status type: somnolence Qualified Code(s): R40.0 - Somnolence Disposition: Admitted As Inpatient Condition: Good Referrals: NO,PCP [Primary Care Provider] - Forms: ED Satisfaction Letter Time of Disposition: 13:04 General Adult HPI - General Chief complaint: ED Overdose Stated complaint: unresponsive, found in bathtub Time Seen by Provider: 11/05/16 11:15 Source: EMS Mode of arrival: EMS Limitations: altered mental status Nursing Notes Reviewed: Yes Vital Signs Reviewed: Yes - History of Present Illness HPI Narrative: Patient presented by EMS from home with complaint of unresponsiveness. She was found in her bathtub up to her neck. Patient is known for possible polypharmacy and alcohol abuse. They are concerned because responsive presentation. Vital signs and transit were stable Accu-Chek was 98. Onset (ago): Just [employer] Pain Scale: 0 Treatments Prior to Arrival: none - Related Data Home Medications Medication Instructions Recorded Confirmed Cyanocobalamin (B-12) [Vitamin B12] 1 ml IJ QMONTH 12/20/14 10/23/16 OLANZapine [Zyprexa] 20 mg PO HS 12/20/14 10/23/16 Sucralfate [Carafate] 1 gm PO QIDAC 12/20/14 10/23/16 Simethicone [Gas-X] 80 mg PO TID PRN 02/04/15 10/23/16 Diphenoxylate/Atropine [Lomotil 1 each PO QID PRN 07/28/15 10/23/16 2.5 mg/0.025 mg] Potassium Chloride [Klor-Con M15] 15 meq PO DAILY 05/02/16 10/23/16 Lipase/Protease/Amylase [Virgilio Ramos 3 cap PO TIDWM 10/03/16 10/23/16 36,000 Units Capsule] Albuterol Sulfate [Proair Hfa] 2 puff IH Q6H PRN 10/17/16 10/23/16 Dextroamphetamine/Amphetamine 10 mg PO TID 10/17/16 10/23/16 [Adderall 10 mg Tablet] Ergocalciferol (VITAMIN D2) 50,000 unit PO TU 10/17/16 10/23/16 [Vitamin D2] Naltrexone Microspheres [Vivitrol] 380 mg IM QMONTH 10/17/16 10/23/16 Previous Rx's Medication Instructions Recorded Promethazine [Phenergan] 25 mg PO Q8HR PRN #90 tablet 12/21/14 Esomeprazole Magnesium [Nexium] 40 mg PO BID #60 capsule. 02/29/16 Chlordiazepoxide [Librium] 25 mg PO TID PRN #21 capsule 10/18/16 Lactose-Reduced Food [Ensure Plus] 1 bottle PO TID #90 can 10/18/16 Vilazodone HCl [Viibryd] 20 mg PO DAILY #30 tablet 10/18/16 Calcium Carbonate [Tums] 1,000 mg PO QID #30 tab.chew 10/27/16 Folic Acid 1 mg PO DAILY tablet 10/27/16 HYDROcodone/Acet 5/325 mg [[place] 1 tab PO BID PRN #10 tab 10/27/16 5-325 mg] Nicotine Patch [Nicoderm] 21 mg TD DAILY patch.td24 10/27/16 Pantoprazole Sodium [Protonix] 40 mg PO BID #60 tablet. 10/27/16 Thiamine (B-1) [Vitamin B-1] 100 mg PO DAILY tablet 10/27/16 Albuterol Sulfate [Albuterol 2 puff IH QID #1 inhaler 10/28/16 Inhaler] Benzonatate [Tessalon] 200 mg PO TID PRN #20 capsule 10/28/16 PredniSONE [Suleiman] 5 mg PO DAILY 6 Days 10/28/16 Allergies Allergy/AdvReac Type Severity Reaction Status Date / Time cephalexin Allergy Rash Verified 10/10/16 17:08 clindamycin Allergy Rash Verified 10/10/16 17:08 nalbuphine [From Nubain] AdvReac "didn't Verified 10/10/16 17:[address] it made me feel" Limitations: ROS unobtainable due to patients medical condition Past Medical History - Past Medical History Attestation: Yes The following information was validated with the patient. Source: patient Medical history: Reports: cirrhosis, diabetes, GERD, hyperlipidemia, hypertension, liver disease, other Surgical history: Reports: appendectomy, cholecystectomy, herniorrhaphy, hysterectomy, other Psychiatric history: Reports: ADHD, bipolar, prior suicide attempt, previous psychiatric hospitalization SOIL CONSERVATION AIDE history: Reports: no SOIL CONSERVATION AIDE history - Social History Smoking Status: Current every day smoker Smokeless Tobacco Status: No Alcohol use: Reports: none Drug use: Reports: opiates Physical Exam - General Limitations: altered mental status General appearance: lethargic - Head Head exam: atraumatic, normocephalic, normal inspection - Eye Eye exam: Present: normal appearance, PERRL, EOMI. Absent: scleral icterus, conjunctival injection, miosis, mydriasis - ENT ENT exam: normal exam, normal oropharynx, mucous membranes dry - Neck Neck exam: Present: normal inspection, full ROM, trachea midline - Chest Chest inspection: Present: normal inspection, symmetric chest wall rise. Absent : tenderness - Respiratory Respiratory exam: Present: normal lung sounds bilaterally. Absent: respiratory distress, wheezes, stridor, accessory muscle use - Cardiovascular Cardiovascular exam: Present: normal rhythm, tachycardia - Abdominal Exam Abdominal exam: Present: soft, Non-Tender. Absent: tenderness, distention, guarding, rebound, rigidity - Extremities Exam Extremities exam: Present: normal inspection. Absent: tenderness - Back Exam Back exam: Present: normal inspection - Skin Skin exam: Present: warm, dry, intact, normal color Course Course Narrative: Patient seen and examined the time of arrival. See history of present illness. 41-year-old female presents emergency room by EMS for evaluation of altered mental status. Patient was found in her bathtub today at home. She has long- standing history of alcohol abuse and drug abuse. She presented here today obtunded. Accu-Chek in transit was 96. The EMS providers described a non- submerge in presentation at this time. Patient was lying in the bathtub of water up to her neck. On my initial evaluation patient has minimal gag reflex but does respond to painful stimuli with sternal rub. Patient's pupils are equal and reactive at 2 mm. Her oropharynx is patent she has no stridor her mucous membranes are dry. Lungs are clear with no crackles heart is regular but tachycardic. Abdomen is soft nontender on exam with no pulsatile lesion signs of trauma this time. Extremities appear to be normal she does have redness to the extremities and the upper distribution from the sleep margins down consistent with sun exposure. Patient has poor vascular access a right sided humeral interosseous line was started and no immediate fluid resuscitation was provided. Bedside ultrasound completed by myself cardiac evaluation showing tachycardia with no signs of pericardial effusion. Patient is sue appropriately. IVC was evaluated showing almost 100% collapsibility with respirations. Patient also has no signs of free fluid in the abdomen evaluation of the right upper and left upper quadrant. Because of patient's inability to protect her airway as well as her unresponsive presentation with tachycardia electively patient was intubated. We used 20 mg of etomidate 100 mg roccuronium Patient was intubated by the respiratory therapist a single attempt with no complications. ET tube 7.5 placed a 24 cm at the lip. Bilateral breath sounds were noted. Central line was immediately placed directly after the event a right IJ was placed without any complication by myself using alters I and technology. Chest x-ray was reviewed directly after showing stable chest evaluation with no signs of pneumothoraces. Central line is in appropriate place. Initial Accu-Chek completed the bedside during her initial triage was 112 her rectal temperature was 99 5. Labs were drawn at that time. Consultation placed to the senior interactive producer here at the hospital. Dr. Sue and I reviewed the presentation symptoms. He is aware the patient does not have any labs back and is scheduled for CT imaging of the head. Patient had no visible signs of head trauma this time and no free fluid in the abdomen. Montiel catheter placed at this time urine drug screen ethanol Tylenol and salicylates were ordered at this time. 3 L of fluid given secondary to what appears to be significant fluid dehydration. A uniform patrol police officer was also at the bedside initially and he described approximately 91 L bottles of vodka at the site of the couch at home. Concern is noted for significant alcohol intoxication this time causing the intended presentation. We will prophylactically evaluate and treat with sedation here. Admission process to be completed at this time. - Reevaluation(s) Reevaluation #1: Patient found to have a hemoglobin of 8.9 along with benzodiazepines and ethanol on board. The rest of her labs appear to be stable. Hemoglobin was checked with rectal examination. Daughter does say that she has iron deficient anemia along with platelet pooling dysfunction. Hemoccult testing pending. ICU admission completed at this time. Otherwise patient is stable on the ventilator as well as with appropriate central line access. I wrote to be removed when she goes to the floor. Patient's family is at the bedside and detailed discussion of the presentation and need for medical intervention and they are all comfortable with this plan. Appreciate intervention and procedures performed here. No other concerns or issues noted at this time. Patient is stable and in stable medical condition at the time of transport to the ICU. 60 minutes of critical care management provided to this patient. Independent of medical intervention and procedures Time: 13:01 Vital Signs Temperature 99.2 F 11/05/16 11:07 Pulse Rate 148 11/05/16 11:07 Respiratory Rate 24 11/05/16 11:07 Blood Pressure 90/49 11/05/16 11:07 O2 Sat by Pulse Oximetry 98 11/05/16 11:07 Temperature 99.2 F 11/05/16 11:07 Pulse Rate 148 11/05/16 11:07 Respiratory Rate 24 11/05/16 11:07 Blood Pressure 90/49 11/05/16 11:07 O2 Sat by Pulse Oximetry 98 11/05/16 11:07 Oxygen Delivery Oxygen Delivery Non Rebreather Mask Medical Decision Making - MDM Narrative Medical decision making narrative: Altered mental status, alcohol intoxication, - Medical Records Medical records reviewed: Yes I reviewed the patient's medical records. - Lab Data Lab results reviewed: Yes I reviewed the patient's lab results. - Radiology Data Radiology results reviewed: Yes I reviewed the patient's radiology results. CT imaging of the head to be reviewed. Chest x-ray shows stable lines and no signs of pulmonary infiltrate - EKG Data EKG #1 EKG attestation: Yes I reviewed and interpreted this EKG. EKG shows normal: sinus rhythm, axis, intervals, QRS complexes, ST-T waves Rate: tachycardia Rhythm: NSR [place]/QRS: normal T wave inversions noted in: II, III, aVF, v3, v4, v5, v6 When compared to previous EKG there are: previous EKG unavailable Critical Care Time Critical Care Time: Yes Total Critical Care Time: 60 Attestation: Critical care performed: Time is exclusive of separately billable procedures. Time includes: direct patient care, patient reassessment, coordination of patient care, interpretation of data (laboratory data, radiology data, and respiratory data), review of patient's medical records, medical consultation and documentation of patient care. Procedures included in critical care time: Procedures excluded from critical care time:
[2016-11-05 12:37] LABS: Bacteria,Urine Few per hpf (None-Few); Granular Casts,Urine Few per lpf (None Seen); Mucus,Urine Moderate (Few); RBC,Urine 0-3 per hpf (0-3); WBC,Urine 0-3 per hpf (0-3)
[2016-11-05] MEDS ORDERED: Naloxone 0.4 MG/ML INJ IVP PRN (13:19)
[2016-11-05] MEDS ORDERED: *HR* Promethazine 25 MG/ML VIAL IVP PRN (13:27)
[2016-11-05] MEDS ORDERED: 0.9 % Sodium Chloride 1,000 ML IVC SCH (13:30)
--- NOTE | 2016-11-05 13:53 | Pulmonology History & Physical ---
Date of Encounter: 11/05/16 Time of Encounter: 13:49 Assessment and Plan (1) Respiratory failure Current visit: No Status: Suspected Acute respiratory failure with mild hypoxemia in this particular individual with the history as outlined is mainly related to airway control impairment secondary to metabolic encephalopathy due to assumed alcohol overdose. Continue artificial airway, ventilatory support. Qualifiers: Chronicity: acute Respiratory failure complication: hypoxia Qualified Code(s): J96.01 - Acute respiratory failure with hypoxia Code(s): J96.90 - Respiratory failure, unspecified, unspecified whether with hypoxia or hypercapnia SNOMED Code(s): 090709794 (2) Encephalopathy acute Current visit: Yes Status: Acute Patient suffers from encephalopathy likely toxic presumably secondary to alcohol abuse and overdose. Tox screen has been ordered as has serum osmolality in order to calculate presence or absence of an osmolar gap. No obvious localizing findings were noted from physical examination, the head CT scan reportedly unremarkable per discussion with ER. Management will be largely supportive and given this patient's history of alcohol abuse, she will receive thiamine folate and continue infusions are sedation with Precedex propofol. She also be placed on Ativan via CIWA protocol. Code(s): G93.40 - Encephalopathy, unspecified SNOMED Code(s): 3821209 (3) Alcoholism Current visit: No Status: Chronic The patient has a long-standing history of alcohol abuse and reportedly continues to actively consume. She reportedly has histories of alcoholic liver disease likely alcoholic hepatitis as delineated on current liver function studies compared to older liver function studies (? Cirrhosis) and presumptive alcoholic pancreatitis. Supportive measures for the same as previously outlined. Code(s): F10.20 - Alcohol dependence, uncomplicated SNOMED Code(s): 8471161 History of Present Illness Chief complaint: Stupor HPI: Ms. Abdi is a 41 year old female who apparently was found in the bathtub in the home setting non-submerged by family members. Given her state of minimal responsivity/Bhanu in the circumstances of her living (the patient has a history of alcohol abuse apparently multiple bottles of empty alcohol were noted within the home setting) it was assumed that the patient suffered from alcohol overdose. She was transferred to the emergency room and given her animal responsivity and concern for control of her airway, she underwent intubation. She was subsequently stabilized and transferred to the intensive care unit. Review of this patient's history significant for bipolar disorder, opiate abuse disorder, alcohol abuse active with concurrent histories of alcoholic liver disease (cirrhosis not proven suspected) and pancreatitis. Reportedly in the chart, the patient has had prior upper GI surgery possibly gastric bypass will this is uncertain nonetheless did within the last 2 years undergo revision of a wound infection by Dr. Bradford culminating in the necessity to remove mesh from the anterior abdominal wall. Also listed in the chart is a history of venous thromboembolism however other than a listed history, no additional details are available. Past Med Surg Social Fam HX - Past Medical History Medical history: cirrhosis, diabetes, GERD, hyperlipidemia, hypertension, liver disease, other Psychiatric history: ADHD, bipolar, prior suicide attempt, previous psychiatric hospitalization - Past Surgical History Surgical History: appendectomy, cholecystectomy, herniorrhaphy, hysterectomy, other - Social History Smoking Status: Current every day smoker Smokeless Tobacco Status: No Alcohol use: none, recent Drug use: unknown, opiates - Family History Father Living Status: Still Living Hx Family Cardiac Disorders: No Hx Family Respiratory Disorders: No Hx Family Cancer: No Hx Family GI Disorders: No Hx Family Endocrine Disorder: No Hx Family Neuromuscular Disorders: No Hx Family Neurologic Disorders: No Hx Family HEENT Disorders: No Hx Family Autoimmune Disorders: No Grandfather Living Status: Hx Family Cardiac Disorders: Yes ([place]) Maternal Grandmother Living Status: Still Living Hx Family Cancer: Yes (Lung) Sister Living Status: Still Living Hx Family Cancer: Yes (Ovarian) Mother Adopted: No Living Status: Still Living Hx Family Cardiac Disorders: No Hx Family Respiratory Disorders: No Hx Family Cancer: No Hx Family GI Disorders: No Hx Family Endocrine Disorder: Yes (hypothyroidism) Hx Family Neuromuscular Disorders: No Hx Family Neurologic Disorders: No Hx Family HEENT Disorders: No Hx Family Autoimmune Disorders: No Medications and Allergies Cyanocobalamin (B-12) [Vitamin B12] 1 ml IJ QMONTH 12/20/14 [History] OLANZapine [Zyprexa] 20 mg PO HS 12/20/14 [History] Sucralfate [Carafate] 1 gm PO QIDAC 12/20/14 [History] Promethazine [Phenergan] 25 mg PO Q8HR PRN #90 tablet 12/21/14 [Rx] Simethicone [Gas-X] 80 mg PO TID PRN 02/04/15 [History] Diphenoxylate/Atropine [Lomotil 2.5 mg/0.025 mg] 1 each PO QID PRN 07/28/15 [ History] Esomeprazole Magnesium [Nexium] 40 mg PO BID #60 capsule. 02/29/16 [Rx] Potassium Chloride [Klor-Con M15] 15 meq PO DAILY 05/02/16 [History] Lipase/Protease/Amylase [Virgilio Ramos 36,000 Units Capsule] 3 cap PO TIDWM 10/03/16 [History] Albuterol Sulfate [Proair Hfa] 2 puff IH Q6H PRN 10/17/16 [History] Dextroamphetamine/Amphetamine [Adderall 10 mg Tablet] 10 mg PO TID 10/17/16 [ History] Ergocalciferol (VITAMIN D2) [Vitamin D2] 50,000 unit PO TU 10/17/16 [History] Naltrexone Microspheres [Vivitrol] 380 mg IM QMONTH 10/17/16 [History] Chlordiazepoxide [Librium] 25 mg PO TID PRN #21 capsule 10/18/16 [Rx] Lactose-Reduced Food [Ensure Plus] 1 bottle PO TID #90 can 10/18/16 [Rx] Vilazodone HCl [Viibryd] 20 mg PO DAILY #30 tablet 10/18/16 [Rx] Calcium Carbonate [Tums] 1,000 mg PO QID #30 tab.chew 10/27/16 [Rx] Folic Acid 1 mg PO DAILY tablet 10/27/16 [Rx] HYDROcodone/Acet 5/325 mg [[place] 5-325 mg] 1 tab PO BID PRN #10 tab 10/27/16 [Rx ] Nicotine Patch [Nicoderm] 21 mg TD DAILY patch.td24 10/27/16 [Rx] Pantoprazole Sodium [Protonix] 40 mg PO BID #60 tablet. 10/27/16 [Rx] Thiamine (B-1) [Vitamin B-1] 100 mg PO DAILY tablet 10/27/16 [Rx] Albuterol Sulfate [Albuterol Inhaler] 2 puff IH QID #1 inhaler 10/28/16 [Rx] Benzonatate [Tessalon] 200 mg PO TID PRN #20 capsule 10/28/16 [Rx] PredniSONE [Suleiman] 5 mg PO DAILY 6 Days 10/28/16 [Rx] Allergies cephalexin Allergy (Verified 10/10/16 17:08) Rash clindamycin Allergy (Verified 10/10/16 17:08) Rash nalbuphine [From Nubain] Adverse Reaction (Verified 10/10/16 17:08) "didn't like the way it made me feel" ROS unobtainable: due to mental status All Systems: A 10-system review of systems was performed and is negative for pertinent findings except as documented above in the HPI. Physical Examination Vital Signs: Vital Signs, Last 4 Hours Temp Pulse Resp BP Pulse Ox 11/05/16 13:33 96.3 F L 125 17 100/59 97 11/05/16 13:19 96.3 F L 125 17 100/59 97 11/05/16 13:03 14 100/61 11/05/16 12:30 129 14 104/57 98 11/05/16 12:20 130 14 105/59 98 11/05/16 12:10 120 16 108/64 98 General appearance: no acute distress, other (Orally intubated sedated, appears older than stated age) Eyes: nonicteric, other (Pupils are reactive) ENT: oropharynx moist Neck: other (Right IJ central venous catheter) Auscultation: bilateral: clear, diminished breath sounds Cardiovascular: regular rate and rhythm Gastrointestinal: non-distended, other (Well-healed midline abdominal wound) Integumentary: rash (Patient has a rash both upper extremities with well delineated line of demarcation presumably due to sun exposure) Extremities: no cyanosis, other (Trace lower extremity edema, mild venous insufficiency changes) unable to assess due to mental status Results - Laboratory Findings CBC and BMP: 11/05/16 11:55 11/05/16 11:55 ABG ABG pH 7.29 pH Units (7.32-7.45) L 11/05/16 12:00 ABG pCO2 34 mmHg (35-45) L 11/05/16 12:00 ABG pO2 128 mmHg (85-104) H 11/05/16 12:00 ABG O2 Saturation 99 % (95-98) H 11/05/16 12:00 PT/INR, D-dimer PT 12.7 Seconds (9.4-12.1) H 11/05/16 11:55 Abnormal lab findings: Abnormal lab results RBC 3.09 M/mcL (3.82-4.97) L 11/05/16 11:55 Hgb 8.9 g/dL (11.5-15.4) L D 11/05/16 11:55 Hct 26.7 % (35.3-44.9) L 11/05/16 11:55 RDW 23.7 % (11.5-14.5) H 11/05/16 11:55 MPV 8.4 fL (9.4-12.4) L 11/05/16 11:55 PT 12.7 Seconds (9.4-12.1) H 11/05/16 11:55 ABG pH 7.29 pH Units (7.32-7.45) L 11/05/16 12:00 ABG pCO2 34 mmHg (35-45) L 11/05/16 12:00 ABG pO2 128 mmHg (85-104) H 11/05/16 12:00 ABG HCO3 16.3 mEQ/L (21-27) L 11/05/16 12:00 ABG Total CO2 17.3 mEq/L (20-26) L 11/05/16 12:00 ABG O2 Saturation 99 % (95-98) H 11/05/16 12:00 ABG Base Excess -9.4 mEq/L (-2.0 to 3.0) L 11/05/16 12:00 Potassium 3.2 mEq/L (3.5-4.5) L 11/05/16 11:55 Carbon Dioxide 18 mEq/L (19-29) L 11/05/16 11:55 Creatinine 0.44 mg/dL (0.57-1.11) L 11/05/16 11:55 Glucose 116 mg/dL (70-99) H 11/05/16 11:55 Calcium 6.2 mg/dL (8.6-10.8) L D 11/05/16 11:55 Direct Bilirubin 0.8 mg/dL (0.0-0.5) H 11/05/16 11:55 AST 287 Units/L (5-34) H 11/05/16 11:55 ALT 91 Units/L (0-55) H 11/05/16 11:55 Alkaline Phosphatase 230 Units/L (38-126) H 11/05/16 11:55 Serum Total Protein 3.7 g/dL (6.0-8.3) L D 11/05/16 11:55 Albumin 1.8 g/dL (3.5-5.0) L D 11/05/16 11:55 Globulin 1.9 g/dL (2.4-3.5) L 11/05/16 11:55 Albumin/Globulin Ratio 0.9 (1.1-2.2) L 11/05/16 11:55 Urine Ketones 40 mg/dL (Negative) H 11/05/16 11:47 Urine Bilirubin Small (Negative) H 11/05/16 11:47 Urine Urobilinogen 4.0 mg/dL (Normal) H 11/05/16 11:47 Granular Casts Few per lpf (None Seen) H 11/05/16 11:47 Urine Mucus Moderate (Few) H 11/05/16 11:47 Stool Occult Blood Positive (Negative) A 11/05/16 12:30 U Benzodiazepines Scrn Positive ng/mL (Uiwecf=[id number]) H 11/05/16 11:47 Ethyl Alcohol 144 mg/dL (0-10) H 11/05/16 11:55
[2016-11-05 14:19] LABS: Acetaminophen < 1.0 mcg/mL (10-30); Salicylate < 5.0 mg/dL (15-30)
[2016-11-05] MEDS: Dexmedetomidine HCl 400 MCG/100 ML MLS IVC SCH (14:29)
[2016-11-05] MEDS ORDERED: 0.9 % Sodium Chloride 500 ML IVC ONE ×2 (16:34→16:35)
[2016-11-05] MEDS: Folic Acid 1 MG TABLET PO SCH (17:11)
[2016-11-05] MEDS: *HR* Enoxaparin 40 MG/0.4 ML SYRINGE SQ SCH (17:12)
[2016-11-05] MEDS: Vitamin B Complex/Vit C/Vit E 1 EACH TABLET PO SCH (17:12)
[2016-11-05] MEDS: Thiamine (B-1) 100 MG TABLET PO SCH (17:12)
[2016-11-05] MEDS: Famotidine 20 MG/2 ML VIAL IVP SCH (17:13)
[2016-11-05] MEDS ORDERED: *HR* Dextrose 50 % in Water (Syg) 50 ML SYRINGE ONE (18:02)
[2016-11-05] MEDS ORDERED: Dextrose Gel 15 GM PO PRN ×2 (18:12)
[2016-11-05] MEDS ORDERED: D5% in Water 1,000 ML IVC PRN (18:12)
[2016-11-05] MEDS ORDERED: *HR* Dextrose 50 % in Water (Syg) 50 ML SYRINGE IVP PRN (18:12)
[2016-11-06] MEDS: Dexmedetomidine HCl 400 MCG/100 ML MLS IVC SCH ×2 (00:45→14:43)
[2016-11-06] MEDS: Famotidine 20 MG/2 ML VIAL IVP SCH ×2 (05:47→18:33)
[2016-11-06] MEDS: *HR* Enoxaparin 40 MG/0.4 ML SYRINGE SQ SCH (05:47)
[2016-11-06] MEDS ORDERED: Lacri-Lube 3.5 GM TUBE BOTH EYES PRN (07:35)
[2016-11-06 07:39] LABS: Basophils % 0.2 %; Eosinophils # 0.2 K/mcL (0.0-0.6); Eosinophils % 2.8 %; Hematocrit 25.6 % (35.3-44.9); Hemoglobin 8.7 g/dL (11.5-15.4); Immature Granulocytes % 0.5 % (0-4); Lymphocytes # 1.9 K/mcL (0.6-4.6); Lymphocytes % 31.2 %; Mean Corpuscular Hemoglobin 30.1 pg (28.0-33.3); Mean Corpuscular Volume 88.6 fL (83.0-100.0); Monocytes # 0.2 K/mcL (0.0-1.3); Monocytes % 3.7 %; Neutrophils # 3.7 K/mcL (1.6-8.9); Platelet Count 179 K/mcL (140-400); Red Blood Count 2.89 M/mcL (3.82-4.97); Red Cell Distribution Width 24.4 % (11.5-14.5); Segmented Neutrophils % 61.6 %
[2016-11-06] MEDS ORDERED: 0.9 % Sodium Chloride 500 ML IVC ONE ×2 (07:42→09:03)
[2016-11-06] MEDS: Vitamin B Complex/Vit C/Vit E 1 EACH TABLET PO SCH (07:51)
[2016-11-06] MEDS: Thiamine (B-1) 100 MG TABLET PO SCH (07:51)
[2016-11-06] MEDS: Chlorhexidine Rinse 15 ML MOUTHWASH MM SCH ×2 (07:51→20:47)
[2016-11-06] MEDS: Folic Acid 1 MG TABLET PO SCH (07:51)
[2016-11-06] MEDS: 0.9 % Sodium Chloride 1,000 ML IVC ONE (07:52)
[2016-11-06 07:57] LABS: Alanine Aminotransferase 73 Units/L (0-55); Albumin 1.6 g/dL (3.5-5.0); Albumin/Globulin Ratio 0.8 (1.1-2.2); Alkaline Phosphatase 216 Units/L (38-126); Aspartate Amino Transferase 153 Units/L (5-34); BUN/Creatinine Ratio 11 (6-26); Bilirubin,Direct 1.1 mg/dL (0.0-0.5); Bilirubin,Indirect 0.5 mg/dL (0.0-1.2); Bilirubin,Total 1.6 mg/dL (0.2-1.2); Blood Urea Nitrogen 5 mg/dL (7-20); Calcium 7.1 mg/dL (8.6-10.8); Carbon Dioxide 27 mEq/L (19-29); Chloride 109 mEq/L (98-109); Globulin 1.9 g/dL (2.4-3.5); Glucose 129 mg/dL (70-99); Magnesium 1.4 mg/dL (1.6-2.6); Osmolality,Calculated 287 (280-300); Phosphorous 3.1 mg/dL (2.3-4.7); Potassium 3.4 mEq/L (3.5-4.5); Sodium 139 mEq/L (136-145); Total Protein 3.5 g/dL (6.0-8.3); eGFR For African Americans > 60 (> 60); eGFR For Non-African Americans > 60 (> 60)
[2016-11-06 07:59] LABS: Anisocytosis 2+ (Not Present); Platelet Estimate Normal (Normal); Rouleaux Present (Not Present)
[2016-11-06] MEDS ORDERED: *HR* Etomidate 20 MG/10 ML AMPUL IVP ONE (08:01)
[2016-11-06] MEDS ORDERED: *HR* Rocuronium Bromide 100 MG/10 ML VIAL IVC ONE (08:01)
[2016-11-06] MEDS ORDERED: *HR* Midazolam HCl 5 MG/5 ML VIAL IVP ONE (08:01)
[2016-11-06] MEDS: Lacri-Lube 3.5 GM TUBE BOTH EYES SCH ×4 (08:02→20:46)
[2016-11-06 08:11] LABS: Acinetobacter baumannii by PCR Not Detected (Not Detect); Candida albicans by PCR Not Detected (Not Detect); Candida glabrata by PCR Not Detected (Not Detect); Candida krusei by PCR Not Detected (Not Detect); Candida parapsilosis by PCR Not Detected (Not Detect); Candida tropicalis by PCR Not Detected (Not Detect); Enterococcus by PCR Not Detected (Not Detect); Escherichia coli by PCR Not Detected (Not Detect); Klebsiella oxytoca by PCR Not Detected (Not Detect); Klebsiella pneumoniae by PCR Not Detected (Not Detect); Pseudomonas aeruginosa by PCR Not Detected (Not Detect); Serratia marcescens by PCR Not Detected (Not Detect); Staphylococcus aureus by PCR Not Detected (Not Detect); Streptococcus agalactiae(B)PCR Not Detected (Not Detect); Streptococcus by PCR Not Detected (Not Detect); Streptococcus pneumoniae PCR Not Detected (Not Detect); Streptococcus pyogenes (A) PCR Not Detected (Not Detect); mecA Methicillin-Resist Gene Not Detected (Not Detect)
[2016-11-06 08:36] LABS: Ionized Calcium 1.08 mmol/L (1.15-1.35)
[2016-11-06] MEDS ORDERED: Vancomycin 750 MG in D5% in Water 250 ML IVPB SCH (09:00)
[2016-11-06] MEDS ORDERED: Norepinephrine 4 MG in D5% in Water 250 ML IVC SCH (09:15)
[2016-11-06] MEDS: Vancomycin 1,000 MG in D5% in Water 250 ML IVPB SCH ×2 (09:45→22:13)
[2016-11-06] MEDS ORDERED: 0.9 % Sodium Chloride 1,000 ML IV.SOLN IV ONE (09:46)
[2016-11-06] MEDS ORDERED: Calcium Gluconate 1,000 MG in D5% in Water 100 ML IVPB PRN (11:13)
[2016-11-06] MEDS ORDERED: Potassium Phosphate 44 MEQ in 0.9 % Sodium Chloride 250 ML IVPB PRN (11:13)
--- NOTE | 2016-11-06 11:41 | Pulmonology Progress Note ---
Date of Encounter: 11/06/16 Time of Encounter: 11:39 Subjective Principal diagnosis: Respiratory Failure Objective PUL Vital signs: Last Vital Signs Temp 96.0 F L 11/06/16 11:16 Pulse 70 11/06/16 10:00 Resp 14 11/06/16 11:13 BP 105/82 11/06/16 11:13 Pulse Ox 100 11/06/16 11:13 General appearance: no acute distress, other (Patient is intubated and sedated) Eyes: other (Patient eyes both had upward gaze) ENT: other (Patient is intubated. No epistaxis present. ) Neck: supple, no lymphadenopathy, no JVD Effort: normal Auscultation: bilateral: clear, diminished breath sounds Cardiovascular: regular rate and rhythm Gastrointestinal: soft, non-tender, non-distended, other (Well-healed Midline abdominal surgical scar present. ) Integumentary: erythema (Erythema present on bilateral forearms with well delineated line of demarcation. Possibly due to sun exposure) Extremities: no cyanosis, no edema, pulses normal unable to assess due to mental status Ventilator Settings Ventilator Settings: Ventilator Settings, Last 8 Hours Ventilator Mode CPAP Ventilator Mode CPAP Ventilator Mode A/C Ventilator Mode A/C Ventilator Mode A/C Ventilator Mode A/C Ventilator Mode A/C Ventilator Mode A/C Ventilator Mode A/C Ventilator Mode A/C Ventilator Mode A/C Ventilator Tidal Volume 450 Setting Ventilator Tidal Volume 450 Setting Ventilator Tidal Volume 450 Setting Ventilator Tidal Volume 450 Setting Ventilator Tidal Volume 450 Setting Ventilator Tidal Volume 450 Setting Ventilator Tidal Volume 450 Setting Ventilator Tidal Volume 450 Setting Ventilator Tidal Volume 450 Setting Ventilator Respiratory Rate 14 Setting Ventilator Respiratory Rate 14 Setting Ventilator Respiratory Rate 14 Setting Ventilator Respiratory Rate 14 Setting Ventilator Respiratory Rate 14 Setting Ventilator Respiratory Rate 14 Setting Ventilator Respiratory Rate 14 Setting Ventilator Respiratory Rate 14 Setting Ventilator Respiratory Rate 14 Setting Actual Respiratory Rate 15 Actual Respiratory Rate 16 Actual Respiratory Rate 14 Actual Respiratory Rate 14 Actual Respiratory Rate 14 Actual Respiratory Rate 14 Actual Respiratory Rate 15 Actual Respiratory Rate 14 Actual Respiratory Rate 14 Actual Respiratory Rate 14 Actual Respiratory Rate 15 Positive End Expiratory 5 Pressure Positive End Expiratory 5 Pressure Positive End Expiratory 5 Pressure Positive End Expiratory 5 Pressure Positive End Expiratory 5 Pressure Positive End Expiratory 5 Pressure Positive End Expiratory 5 Pressure Positive End Expiratory 5 Pressure Positive End Expiratory 5 Pressure Positive End Expiratory 5 Pressure Positive End Expiratory 5 Pressure Peak Inspiratory Airway 10 Pressure Peak Inspiratory Airway 12 Pressure Peak Inspiratory Airway 21 Pressure Peak Inspiratory Airway 21 Pressure Peak Inspiratory Airway 21 Pressure Peak Inspiratory Airway 21 Pressure Peak Inspiratory Airway 21 Pressure Peak Inspiratory Airway 21 Pressure Peak Inspiratory Airway 21 Pressure Peak Inspiratory Airway 20 Pressure Peak Inspiratory Airway 20 Pressure Results - Laboratory Findings CBC and BMP: 11/06/16 07:35 11/06/16 07:35 ABG ABG pH 7.29 pH Units (7.32-7.45) L 11/05/16 12:00 ABG pCO2 34 mmHg (35-45) L 11/05/16 12:00 ABG pO2 128 mmHg (85-104) H 11/05/16 12:00 ABG O2 Saturation 99 % (95-98) H 11/05/16 12:00 PT/INR, D-dimer PT 12.7 Seconds (9.4-12.1) H 11/05/16 11:55 Abnormal lab findings: Abnormal lab results RBC 2.89 M/mcL (3.82-4.97) L 11/06/16 07:35 Hgb 8.7 g/dL (11.5-15.4) L 11/06/16 07:35 Hct 25.6 % (35.3-44.9) L 11/06/16 07:35 RDW 24.4 % (11.5-14.5) H 11/06/16 07:35 MPV 9.0 fL (9.4-12.4) L 11/06/16 07:35 Anisocytosis 2+ (Not Present) A 11/06/16 07:35 Rouleaux Present (Not Present) A 11/06/16 07:35 PT 12.7 Seconds (9.4-12.1) H 11/05/16 11:55 ABG pH 7.29 pH Units (7.32-7.45) L 11/05/16 12:00 ABG pCO2 34 mmHg (35-45) L 11/05/16 12:00 ABG pO2 128 mmHg (85-104) H 11/05/16 12:00 ABG HCO3 16.3 mEQ/L (21-27) L 11/05/16 12:00 ABG Total CO2 17.3 mEq/L (20-26) L 11/05/16 12:00 ABG O2 Saturation 99 % (95-98) H 11/05/16 12:00 ABG Base Excess -9.4 mEq/L (-2.0 to 3.0) L 11/05/16 12:00 Potassium 3.4 mEq/L (3.5-4.5) L 11/06/16 07:35 BUN 5 mg/dL (7-20) L 11/06/16 07:35 Creatinine 0.45 mg/dL (0.57-1.11) L 11/06/16 07:35 Glucose 129 mg/dL (70-99) H 11/06/16 07:35 Calcium 7.1 mg/dL (8.6-10.8) L 11/06/16 07:35 Ionized Calcium 1.08 mmol/L (1.15-1.35) L 11/06/16 07:35 Magnesium 1.4 mg/dL (1.6-2.6) L 11/06/16 07:35 Total Bilirubin 1.6 mg/dL (0.2-1.2) H 11/06/16 07:35 Direct Bilirubin 1.1 mg/dL (0.0-0.5) H 11/06/16 07:35 AST 153 Units/L (5-34) H 11/06/16 07:35 ALT 73 Units/L (0-55) H 11/06/16 07:35 Alkaline Phosphatase 216 Units/L (38-126) H 11/06/16 07:35 Ammonia 17 mcmol/L (18-72) L 11/05/16 13:55 Serum Total Protein 3.5 g/dL (6.0-8.3) L 11/06/16 07:35 Albumin 1.6 g/dL (3.5-5.0) L 11/06/16 07:35 Globulin 1.9 g/dL (2.4-3.5) L 11/06/16 07:35 Albumin/Globulin Ratio 0.8 (1.1-2.2) L 11/06/16 07:35 Urine Ketones 40 mg/dL (Negative) H 11/05/16 11:47 Urine Bilirubin Small (Negative) H 11/05/16 11:47 Urine Urobilinogen 4.0 mg/dL (Normal) H 11/05/16 11:47 Granular Casts Few per lpf (None Seen) H 11/05/16 11:47 Urine Mucus Moderate (Few) H 11/05/16 11:47 Stool Occult Blood Positive (Negative) A 11/05/16 12:30 Salicylates < 5.0 mg/dL (15-30) L 11/05/16 13:55 Acetaminophen < 1.0 mcg/mL (10-30) L 11/05/16 13:55 U Benzodiazepines Scrn Positive ng/mL (Xcjshz=482) H 11/05/16 11:47 Ethyl Alcohol 144 mg/dL (0-10) H 11/05/16 11:55 Staphylococcus sp PCR DETECTED (Not Detect) A 11/05/16 11:55 - Clinical Findings Intake & Output: Intake & Output 11/05/16 11/06/16 11/06/16 23:59 07:59 15:59 Intake Total 2100 / 2100 150 / 150 425 / 425 Output Total 500 / 500 1550 / 1550 550 / 550 Balance 1600 / 1600 -1400 / -1400 -125 / -125 Weight 57.017 kg Consult Discharge Plan - Plan Referrals: NO,PCP [Primary Care Provider] -
[2016-11-06] MEDS: Potassium Chloride 40 MEQ/200 ML BAG IVPB PRN (11:54)
--- NOTE | 2016-11-06 11:59 | Pulmonology Progress Note ---
Date of Encounter: 11/06/16 Time of Encounter: 09:00 Assessment and Plan (1) Encephalopathy acute Current Visit: Yes Status: Acute Patient suffers from encephalopathy likely toxic presumably secondary to alcohol abuse and overdose. Tox screen has been ordered as has serum osmolality in order to calculate presence or absence of an osmolar gap. No obvious localizing findings were noted from physical examination, the head CT scan reportedly unremarkable per discussion with ER. Management will be largely supportive and given this patient's history of alcohol abuse, she will receive thiamine folate and continue infusions are sedation with Precedex and propofol. She also be placed on Ativan via [facility] protocol. Code(s): G93.40 - Encephalopathy, unspecified SNOMED Code(s): 0475571 (2) Respiratory failure Current Visit: No Status: Suspected Acute respiratory failure with mild hypoxemia in this particular individual with the history as outlined is mainly related to airway control impairment secondary to metabolic encephalopathy due to assumed alcohol overdose. Continue artificial airway, ventilatory support. Qualifiers: Qualified Code(s): J96.01 - Acute respiratory failure with hypoxia Code(s): J96.90 - Respiratory failure, unspecified, unspecified whether with hypoxia or hypercapnia SNOMED Code(s): 681829344 (3) Alcoholism Current Visit: No Status: Chronic The patient has a long-standing history of alcohol abuse and reportedly continues to actively consume. She reportedly has histories of alcoholic liver disease likely alcoholic hepatitis as delineated on current liver function studies compared to older liver function studies (? Cirrhosis) and presumptive alcoholic pancreatitis. Supportive measures for the same as previously outlined. Code(s): F10.20 - Alcohol dependence, uncomplicated SNOMED Code(s): 1064119 Subjective Principal diagnosis: Respiratory Failure Interval history: The patient remains sedated with both the propofol Precedex infusions. Overnight, the patient did experience hypotension mitigated with a several fluid boluses of normal saline. Urine output remains acceptable. Coronary the nursing staff, without fairly heavy sedation, the patient comes agitated. Otherwise, no acute overnight events reported. This morning, I note acceptable hemodynamics and urine output. The patient requires a level ventilatory support. Objective PUL Vital signs: Last Vital Signs Temp 96.0 F L 11/06/16 11:16 Pulse 70 11/06/16 11:00 Resp 14 11/06/16 11:13 BP 105/82 11/06/16 11:13 Pulse Ox 100 11/06/16 11:13 General appearance: lethargic, other (Sedated) Eyes: nonicteric, icteric ENT: oropharynx moist, other (Orally intubated) Auscultation: bilateral: clear Cardiovascular: regular rate and rhythm, other (Absence of murmur) Gastrointestinal: normoactive bowel sounds, non-distended, other (Well-healed midline abdominal scar) Integumentary: other (Multiple tattoos) Extremities: no cyanosis, no edema Musculoskeletal: no deformities non-focal exam, other (Limited neurologic exam due to sedation, no obvious focal deficits) Ventilator Settings Ventilator Settings: Ventilator Settings, Last 8 Hours Ventilator Mode CPAP Ventilator Mode CPAP Ventilator Mode A/C Ventilator Mode A/C Ventilator Mode A/C Ventilator Mode A/C Ventilator Mode A/C Ventilator Mode A/C Ventilator Mode A/C Ventilator Mode A/C Ventilator Mode A/C Ventilator Tidal Volume 450 Setting Ventilator Tidal Volume 450 Setting Ventilator Tidal Volume 450 Setting Ventilator Tidal Volume 450 Setting Ventilator Tidal Volume 450 Setting Ventilator Tidal Volume 450 Setting Ventilator Tidal Volume 450 Setting Ventilator Tidal Volume 450 Setting Ventilator Tidal Volume 450 Setting Ventilator Respiratory Rate 14 Setting Ventilator Respiratory Rate 14 Setting Ventilator Respiratory Rate 14 Setting Ventilator Respiratory Rate 14 Setting Ventilator Respiratory Rate 14 Setting Ventilator Respiratory Rate 14 Setting Ventilator Respiratory Rate 14 Setting Ventilator Respiratory Rate 14 Setting Ventilator Respiratory Rate 14 Setting Actual Respiratory Rate 15 Actual Respiratory Rate 16 Actual Respiratory Rate 14 Actual Respiratory Rate 14 Actual Respiratory Rate 14 Actual Respiratory Rate 14 Actual Respiratory Rate 15 Actual Respiratory Rate 14 Actual Respiratory Rate 14 Actual Respiratory Rate 14 Actual Respiratory Rate 15 Positive End Expiratory 5 Pressure Positive End Expiratory 5 Pressure Positive End Expiratory 5 Pressure Positive End Expiratory 5 Pressure Positive End Expiratory 5 Pressure Positive End Expiratory 5 Pressure Positive End Expiratory 5 Pressure Positive End Expiratory 5 Pressure Positive End Expiratory 5 Pressure Positive End Expiratory 5 Pressure Positive End Expiratory 5 Pressure Peak Inspiratory Airway 10 Pressure Peak Inspiratory Airway 12 Pressure Peak Inspiratory Airway 21 Pressure Peak Inspiratory Airway 21 Pressure Peak Inspiratory Airway 21 Pressure Peak Inspiratory Airway 21 Pressure Peak Inspiratory Airway 21 Pressure Peak Inspiratory Airway 21 Pressure Peak Inspiratory Airway 21 Pressure Peak Inspiratory Airway 20 Pressure Peak Inspiratory Airway 20 Pressure Results - Laboratory Findings CBC and BMP: 11/06/16 07:35 11/06/16 07:35 ABG ABG pH 7.29 pH Units (7.32-7.45) L 11/05/16 12:00 ABG pCO2 34 mmHg (35-45) L 11/05/16 12:00 ABG pO2 128 mmHg (85-104) H 11/05/16 12:00 ABG O2 Saturation 99 % (95-98) H 11/05/16 12:00 PT/INR, D-dimer PT 12.7 Seconds (9.4-12.1) H 11/05/16 11:55 Abnormal lab findings: Abnormal lab results RBC 2.89 M/mcL (3.82-4.97) L 11/06/16 07:35 Hgb 8.7 g/dL (11.5-15.4) L 11/06/16 07:35 Hct 25.6 % (35.3-44.9) L 11/06/16 07:35 RDW 24.4 % (11.5-14.5) H 11/06/16 07:35 MPV 9.0 fL (9.4-12.4) L 11/06/16 07:35 Anisocytosis 2+ (Not Present) A 11/06/16 07:35 Rouleaux Present (Not Present) A 11/06/16 07:35 PT 12.7 Seconds (9.4-12.1) H 11/05/16 11:55 ABG pH 7.29 pH Units (7.32-7.45) L 11/05/16 12:00 ABG pCO2 34 mmHg (35-45) L 11/05/16 12:00 ABG pO2 128 mmHg (85-104) H 11/05/16 12:00 ABG HCO3 16.3 mEQ/L (21-27) L 11/05/16 12:00 ABG Total CO2 17.3 mEq/L (20-26) L 11/05/16 12:00 ABG O2 Saturation 99 % (95-98) H 11/05/16 12:00 ABG Base Excess -9.4 mEq/L (-2.0 to 3.0) L 11/05/16 12:00 Potassium 3.4 mEq/L (3.5-4.5) L 11/06/16 07:35 BUN 5 mg/dL (7-20) L 11/06/16 07:35 Creatinine 0.45 mg/dL (0.57-1.11) L 11/06/16 07:35 Glucose 129 mg/dL (70-99) H 11/06/16 07:35 Calcium 7.1 mg/dL (8.6-10.8) L 11/06/16 07:35 Ionized Calcium 1.08 mmol/L (1.15-1.35) L 11/06/16 07:35 Magnesium 1.4 mg/dL (1.6-2.6) L 11/06/16 07:35 Total Bilirubin 1.6 mg/dL (0.2-1.2) H 11/06/16 07:35 Direct Bilirubin 1.1 mg/dL (0.0-0.5) H 11/06/16 07:35 AST 153 Units/L (5-34) H 11/06/16 07:35 ALT 73 Units/L (0-55) H 11/06/16 07:35 Alkaline Phosphatase 216 Units/L (38-126) H 11/06/16 07:35 Ammonia 17 mcmol/L (18-72) L 11/05/16 13:55 Serum Total Protein 3.5 g/dL (6.0-8.3) L 11/06/16 07:35 Albumin 1.6 g/dL (3.5-5.0) L 11/06/16 07:35 Globulin 1.9 g/dL (2.4-3.5) L 11/06/16 07:35 Albumin/Globulin Ratio 0.8 (1.1-2.2) L 11/06/16 07:35 Urine Ketones 40 mg/dL (Negative) H 11/05/16 11:47 Urine Bilirubin Small (Negative) H 11/05/16 11:47 Urine Urobilinogen 4.0 mg/dL (Normal) H 11/05/16 11:47 Granular Casts Few per lpf (None Seen) H 11/05/16 11:47 Urine Mucus Moderate (Few) H 11/05/16 11:47 Stool Occult Blood Positive (Negative) A 11/05/16 12:30 Salicylates < 5.0 mg/dL (15-30) L 11/05/16 13:55 Acetaminophen < 1.0 mcg/mL (10-30) L 11/05/16 13:55 U Benzodiazepines Scrn Positive ng/mL (Xfeuub=616) H 11/05/16 11:47 Ethyl Alcohol 144 mg/dL (0-10) H 11/05/16 11:55 Staphylococcus sp PCR DETECTED (Not Detect) A 11/05/16 11:55 - Clinical Findings Intake & Output: Intake & Output 11/05/16 11/06/16 11/06/16 23:59 07:59 15:59 Intake Total 2100 / 2100 150 / 150 425 / 425 Output Total 500 / 500 1550 / 1550 550 / 550 Balance 1600 / 1600 -1400 / -1400 -125 / -125 Weight 57.017 kg Consult Discharge Plan - Plan Referrals: NO,PCP [Primary Care Provider] -
[2016-11-06] MEDS: Magnesium Sulfate 2 GM in D5% in Water 100 ML IVPB PRN (12:06)
--- NOTE | 2016-11-06 15:22 | Electrocardiograph Report ---
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
--- NOTE | 2016-11-06 15:25 | Electrocardiograph Report ---
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
[2016-11-06] MEDS: *HR* LORazepam 2 MG/ML VIAL IVP PRN ×2 (16:26→22:13)
[2016-11-06] MEDS ORDERED: *HR* LORazepam 2 MG/ML VIAL IVP PRN ×2 (17:35)
[2016-11-07] MEDS: Lacri-Lube 3.5 GM TUBE BOTH EYES SCH ×3 (00:50→09:03)
[2016-11-07] MEDS: Dexmedetomidine HCl 400 MCG/100 ML MLS IVC SCH (03:51)
[2016-11-07 04:02] LABS: Basophils % 0.5 %; Eosinophils # 0.3 K/mcL (0.0-0.6); Eosinophils % 5.1 %; Hemoglobin 9.1 g/dL (11.5-15.4); Immature Granulocytes % 0.5 % (0-4); Immature Platelets 2.8 % (1.1-6.1); Lymphocytes # 1.7 K/mcL (0.6-4.6); Lymphocytes % 29.1 %; Mean Corpuscular HGB Conc 33.7 g/dL (31.6-35.5); Mean Corpuscular Volume 89.1 fL (83.0-100.0); Mean Platelet Volume 9.1 fL (9.4-12.4); Monocytes # 0.2 K/mcL (0.0-1.3); Monocytes % 3.7 %; Neutrophils # 3.5 K/mcL (1.6-8.9); Platelet Count 202 K/mcL (140-400); Red Blood Count 3.03 M/mcL (3.82-4.97); Red Cell Distribution Width 23.9 % (11.5-14.5); Segmented Neutrophils % 61.1 %
[2016-11-07 04:11] LABS: Alanine Aminotransferase 65 Units/L (0-55); Albumin 1.6 g/dL (3.5-5.0); Albumin/Globulin Ratio 0.8 (1.1-2.2); Alkaline Phosphatase 218 Units/L (38-126); Aspartate Amino Transferase 96 Units/L (5-34); BUN/Creatinine Ratio 9 (6-26); Bilirubin,Direct 0.6 mg/dL (0.0-0.5); Bilirubin,Indirect 0.3 mg/dL (0.0-1.2); Bilirubin,Total 0.9 mg/dL (0.2-1.2); Blood Urea Nitrogen 4 mg/dL (7-20); Calcium 7.5 mg/dL (8.6-10.8); Carbon Dioxide 27 mEq/L (19-29); Chloride 112 mEq/L (98-109); Globulin 2.1 g/dL (2.4-3.5); Glucose 98 mg/dL (70-99); Magnesium 1.5 mg/dL (1.6-2.6); Osmolality,Calculated 291 (280-300); Potassium 3.1 mEq/L (3.5-4.5); Sodium 142 mEq/L (136-145); Total Protein 3.7 g/dL (6.0-8.3); eGFR For African Americans > 60 (> 60); eGFR For Non-African Americans > 60 (> 60)
[2016-11-07 04:19] LABS: Platelet Estimate Normal (Normal)
[2016-11-07 04:20] LABS: Anisocytosis 3+ (Not Present); Macrocytosis Present (Not Present)
[2016-11-07 04:21] LABS: Target Cells 1+ (Not Present)
[2016-11-07] MEDS: Famotidine 20 MG/2 ML VIAL IVP SCH ×2 (06:04→18:06)
[2016-11-07] MEDS: *HR* Enoxaparin 40 MG/0.4 ML SYRINGE SQ SCH (06:04)
[2016-11-07] MEDS: Potassium Chloride 40 MEQ/200 ML BAG IVPB PRN ×2 (06:04→07:41)
[2016-11-07] MEDS: Magnesium Sulfate 2 GM in D5% in Water 100 ML IVPB PRN (06:46)
[2016-11-07] MEDS: Vancomycin 1,000 MG in D5% in Water 250 ML IVPB SCH (09:00)
[2016-11-07] MEDS: Chlorhexidine Rinse 15 ML MOUTHWASH MM SCH (09:00)
[2016-11-07] MEDS ORDERED: *HR* Dextrose 50 % in Water (Syg) 50 ML SYRINGE IVP PRN (09:53)
[2016-11-07] MEDS ORDERED: Potassium Chloride 40 MEQ/200 ML BAG IVPB PRN (09:53)
[2016-11-07] MEDS ORDERED: Dextrose Gel 15 GM PO PRN ×2 (09:53)
[2016-11-07] MEDS ORDERED: Naloxone 0.4 MG/ML INJ IVP PRN (09:53)
[2016-11-07] MEDS ORDERED: Magnesium Sulfate 2 GM in D5% in Water 100 ML IVPB PRN (09:53)
[2016-11-07] MEDS ORDERED: *HR* LORazepam 2 MG/ML VIAL IVP PRN ×2 (09:53)
[2016-11-07] MEDS ORDERED: 0.9 % Sodium Chloride 1,000 ML IVC SCH (09:53)
[2016-11-07] MEDS ORDERED: Potassium Phosphate 44 MEQ in 0.9 % Sodium Chloride 250 ML IVPB PRN (09:53)
[2016-11-07] MEDS ORDERED: D5% in Water 1,000 ML IVC PRN (09:53)
[2016-11-07] MEDS ORDERED: Calcium Gluconate 1,000 MG in D5% in Water 100 ML IVPB PRN (09:53)
--- NOTE | 2016-11-07 13:02 | Pulmonology Progress Note ---
Date of Encounter: 11/07/16 Time of Encounter: 09:10 Assessment and Plan (1) Respiratory failure Current Visit: No Status: Suspected Acute respiratory failure with hypoxia has resolved at this time. The patient was successfully liberated from ventilatory support yesterday. Qualifiers: Chronicity: acute Respiratory failure complication: hypoxia Qualified Code(s): J96.01 - Acute respiratory failure with hypoxia Code(s): J96.90 - Respiratory failure, unspecified, unspecified whether with hypoxia or hypercapnia SNOMED Code(s): 517404807 (2) Alcoholism Current Visit: No Status: Chronic The patient has a long-standing history of alcohol abuse and reportedly continues to actively consume. She reportedly has histories of alcoholic liver disease likely alcoholic hepatitis as delineated on current liver function studies compared to older liver function studies (? Cirrhosis) and presumptive alcoholic pancreatitis. Supportive measures for the same as previously outlined. Code(s): F10.20 - Alcohol dependence, uncomplicated SNOMED Code(s): 1836155 (3) Encephalopathy acute Current Visit: Yes Status: Acute Patient suffers from encephalopathy likely toxic presumably secondary to alcohol abuse and overdose. The patient's clinical situation is substantially improved, she is not actively withdrawing from alcohol and thus will be transferred out of the intensive care unit today. Code(s): G93.40 - Encephalopathy, unspecified SNOMED Code(s): 6339936 Subjective Principal diagnosis: Respiratory Failure Interval history: No acute overnight events reported. The patient is awake alert and interactive with caregivers. She is nearly completely free of Precedex infusion and has no obvious signs of active alcohol withdrawal. Objective PUL Vital signs: Last Vital Signs Temp 97.5 F L 11/07/16 12:02 Pulse 120 11/07/16 12:00 Resp 28 11/07/16 12:00 BP 97/70 11/07/16 12:00 Pulse Ox 100 11/07/16 12:00 General appearance: no acute distress Eyes: nonicteric ENT: oropharynx moist Auscultation: bilateral: clear Cardiovascular: regular rate and rhythm Gastrointestinal: normoactive bowel sounds, non-distended non-focal exam mood appropriate Results - Laboratory Findings CBC and BMP: 11/07/16 03:50 11/07/16 03:50 ABG ABG pH 7.29 pH Units (7.32-7.45) L 11/05/16 12:00 ABG pCO2 34 mmHg (35-45) L 11/05/16 12:00 ABG pO2 128 mmHg (85-104) H 11/05/16 12:00 ABG O2 Saturation 99 % (95-98) H 11/05/16 12:00 PT/INR, D-dimer PT 12.7 Seconds (9.4-12.1) H 11/05/16 11:55 Abnormal lab findings: Abnormal lab results RBC 3.03 M/mcL (3.82-4.97) L 11/07/16 03:50 Hgb 9.1 g/dL (11.5-15.4) L 11/07/16 03:50 Hct 27.0 % (35.3-44.9) L 11/07/16 03:50 RDW 23.9 % (11.5-14.5) H 11/07/16 03:50 MPV 9.1 fL (9.4-12.4) L 11/07/16 03:50 Anisocytosis 3+ (Not Present) A 11/07/16 03:50 Macrocytosis Present (Not Present) A 11/07/16 03:50 Target Cells 1+ (Not Present) A 11/07/16 03:50 Rouleaux Present (Not Present) A 11/06/16 07:35 PT 12.7 Seconds (9.4-12.1) H 11/05/16 11:55 ABG pH 7.29 pH Units (7.32-7.45) L 11/05/16 12:00 ABG pCO2 34 mmHg (35-45) L 11/05/16 12:00 ABG pO2 128 mmHg (85-104) H 11/05/16 12:00 ABG HCO3 16.3 mEQ/L (21-27) L 11/05/16 12:00 ABG Total CO2 17.3 mEq/L (20-26) L 11/05/16 12:00 ABG O2 Saturation 99 % (95-98) H 11/05/16 12:00 ABG Base Excess -9.4 mEq/L (-2.0 to 3.0) L 11/05/16 12:00 Potassium 3.1 mEq/L (3.5-4.5) L 11/07/16 03:50 Chloride 112 mEq/L (98-109) H 11/07/16 03:50 BUN 4 mg/dL (7-20) L 11/07/16 03:50 Creatinine 0.45 mg/dL (0.57-1.11) L 11/07/16 03:50 POC Glucose 125 (58-89) H 11/06/16 23:50 Calcium 7.5 mg/dL (8.6-10.8) L 11/07/16 03:50 Ionized Calcium 1.08 mmol/L (1.15-1.35) L 11/06/16 07:35 Magnesium 1.5 mg/dL (1.6-2.6) L 11/07/16 03:50 Direct Bilirubin 0.6 mg/dL (0.0-0.5) H 11/07/16 03:50 AST 96 Units/L (5-34) H 11/07/16 03:50 ALT 65 Units/L (0-55) H 11/07/16 03:50 Alkaline Phosphatase 218 Units/L (38-126) H 11/07/16 03:50 Ammonia 17 mcmol/L (18-72) L 11/05/16 13:55 Serum Total Protein 3.7 g/dL (6.0-8.3) L 11/07/16 03:50 Albumin 1.6 g/dL (3.5-5.0) L 11/07/16 03:50 Globulin 2.1 g/dL (2.4-3.5) L 11/07/16 03:50 Albumin/Globulin Ratio 0.8 (1.1-2.2) L 11/07/16 03:50 Urine Ketones 40 mg/dL (Negative) H 11/05/16 11:47 Urine Bilirubin Small (Negative) H 11/05/16 11:47 Urine Urobilinogen 4.0 mg/dL (Normal) H 11/05/16 11:47 Granular Casts Few per lpf (None Seen) H 11/05/16 11:47 Urine Mucus Moderate (Few) H 11/05/16 11:47 Stool Occult Blood Positive (Negative) A 11/05/16 12:30 Salicylates < 5.0 mg/dL (15-30) L 11/05/16 13:55 Acetaminophen < 1.0 mcg/mL (10-30) L 11/05/16 13:55 U Benzodiazepines Scrn Positive ng/mL (Wwitry=713) H 11/05/16 11:47 Ethyl Alcohol 144 mg/dL (0-10) H 11/05/16 11:55 Staphylococcus sp PCR DETECTED (Not Detect) A 11/05/16 11:55 - Microbiology Findings Microbiology Findings: Microbiology, Last 48 Hours 11/06/16 03:10 Sputum Culture - Preliminary Sputum Gram Negative Graham Gram Negative Graham#2 - Clinical Findings Intake & Output: Intake & Output 11/06/16 11/07/16 11/07/16 23:59 07:59 15:59 Intake Total 250 / 250 200 / 200 Output Total 700 / 700 950 / 950 100 / 100 Balance -450 / -450 -750 / -750 -100 / -100 Weight 54.975 kg Consult Discharge Plan - Plan Referrals: NO,PCP [Primary Care Provider] -
--- NOTE | 2016-11-07 14:18 | Event Note ---
Date of Encounter: 11/07/16 Time of Encounter: 14:17 For Hospitalist, no evidence of respiratory infection, blood culture negative ( only biofire positive) hence no need for ATB RX. If you have a question, call me directly. Marcin Sue [phone]
[2016-11-07] MEDS: Nicotine 21 MG PATCH.TD24 TD SCH (19:33)
[2016-11-07] MEDS: Ketorolac 30 MG/ML VIAL IVP PRN (19:35)
[2016-11-07] MEDS: OLANZapine 10 MG TAB.RAPDIS PO SCH (20:48)
[2016-11-07] MEDS ORDERED: OLANZapine 10 MG TAB.RAPDIS PO SCH (21:00)
[2016-11-07] MEDS ORDERED: Vancomycin 1,000 MG in D5% in Water 250 ML IVPB SCH (21:00)
[2016-11-07] MEDS: GuaiFENesin Liq 200 MG/10 ML UDC PO PRN (21:01)
[2016-11-07] MEDS: *HR* Promethazine 25 MG/ML VIAL IVP PRN (23:54)
[2016-11-07] MEDS: *HR* LORazepam 2 MG/ML VIAL IVP PRN (23:56)
[2016-11-08] MEDS ORDERED: Nitroglycerin 0.4 MG TAB.SUBL SL PRN (02:48)
[2016-11-08] MEDS: Ketorolac 30 MG/ML VIAL IVP PRN ×3 (02:59→16:22)
[2016-11-08] MEDS: GuaiFENesin Liq 200 MG/10 ML UDC PO PRN ×2 (03:03→07:50)
--- NOTE | 2016-11-08 04:31 | Event Note ---
Date of Encounter: 11/08/16 Time of Encounter: 04:28 EVENT NOTE patient had chest pain and informed her nurse about her symptom and was concerned about pulmonary embolism(PE), stat EKG was sinus tachycardia, she also has other symptoms concerning for alcohol withdrawal. Her Wells score for PE is 1.5 points signifying a low risk group: 1.3% chance of PE. She only scored on the heart rate criteria which is also consistent with her alcohol withdrawal, her oxygen requirement has also not changed. We will continue to monitor, should subsequent complaints/findings be concerning for PE, we will consider CTA of chest.
[2016-11-08] MEDS: Famotidine 20 MG/2 ML VIAL IVP SCH ×2 (05:05→17:18)
[2016-11-08] MEDS: *HR* Enoxaparin 40 MG/0.4 ML SYRINGE SQ SCH (05:08)
[2016-11-08 06:47] LABS: Alanine Aminotransferase 82 Units/L (0-55); Albumin/Globulin Ratio 0.7 (1.1-2.2); Alkaline Phosphatase 298 Units/L (38-126); Aspartate Amino Transferase 125 Units/L (5-34); BUN/Creatinine Ratio 6 (6-26); Bilirubin,Direct 0.5 mg/dL (0.0-0.5); Bilirubin,Indirect 0.5 mg/dL (0.0-1.2); Calcium 7.9 mg/dL (8.6-10.8); Carbon Dioxide 25 mEq/L (19-29); Chloride 109 mEq/L (98-109); Globulin 3.1 g/dL (2.4-3.5); Glucose 80 mg/dL (70-99); Magnesium 1.8 mg/dL (1.6-2.6); Osmolality,Calculated 292 (280-300); Sodium 143 mEq/L (136-145); eGFR For African Americans > 60 (> 60); eGFR For Non-African Americans > 60 (> 60)
[2016-11-08 06:51] LABS: Albumin 2.1 g/dL (3.5-5.0); Blood Urea Nitrogen 3 mg/dL (7-20); Total Protein 5.2 g/dL (6.0-8.3)
[2016-11-08 06:53] LABS: Potassium 3.6 mEq/L (3.5-4.5)
[2016-11-08 06:55] LABS: Basophils % 0.4 %; Eosinophils # 0.1 K/mcL (0.0-0.6); Eosinophils % 1.8 %; Hematocrit 31.4 % (35.3-44.9); Hemoglobin 10.2 g/dL (11.5-15.4); Immature Granulocytes % 1.1 % (0-4); Lymphocytes # 2.3 K/mcL (0.6-4.6); Lymphocytes % 28.4 %; Mean Corpuscular HGB Conc 32.5 g/dL (31.6-35.5); Mean Corpuscular Volume 89.2 fL (83.0-100.0); Mean Platelet Volume 10.1 fL (9.4-12.4); Monocytes # 0.3 K/mcL (0.0-1.3); Monocytes % 3.8 %; Neutrophils # 5.2 K/mcL (1.6-8.9); Platelet Count 187 K/mcL (140-400); Red Blood Count 3.52 M/mcL (3.82-4.97); Red Cell Distribution Width 24.4 % (11.5-14.5); Segmented Neutrophils % 64.5 %
[2016-11-08] MEDS: *HR* LORazepam 2 MG/ML VIAL IVP PRN ×4 (07:40→20:34)
[2016-11-08] MEDS: Folic Acid 1 MG TABLET PO SCH (07:41)
[2016-11-08] MEDS: Nicotine 21 MG PATCH.TD24 TD SCH (07:41)
[2016-11-08] MEDS: Vitamin B Complex/Vit C/Vit E 1 EACH TABLET PO SCH (07:42)
[2016-11-08] MEDS: Thiamine (B-1) 100 MG TABLET PO SCH (07:42)
[2016-11-08 08:16] LABS: Anisocytosis 2+ (Not Present); Polychromasia 1+ (Not Present)
[2016-11-08 08:17] LABS: Platelet Estimate Normal (Normal)
[2016-11-08] MEDS: *HR* Promethazine 25 MG/ML VIAL IVP PRN ×3 (09:51→20:33)
[2016-11-08] MEDS ORDERED: Aminoglycoside Consult 1 EACH MC ONE (10:44)
--- NOTE | 2016-11-08 14:23 | Internal Med Progress Note ---
Date of Encounter: 11/08/16 Time of Encounter: 12:00 - Assessment and plan (1) Alcohol withdrawal Current Visit: Yes Status: Acute Assessment and plan: Patient with mil signs of alcohol withdrawal. We will continue to monitor in hospital. Treat per [facility] protocol. Moderate risk for complications Qualifiers: Complication of substance-induced condition: uncomplicated Qualified Code(s ): F10.230 - Alcohol dependence with withdrawal, uncomplicated (2) Acute respiratory failure with hypoxia Current Visit: Yes Status: Resolved (3) Alcoholism Current Visit: No Status: Chronic Assessment and plan: continue supportive care with Thiamine, folic acid. (4) Encephalopathy acute Current Visit: Yes Status: Resolved Assessment and plan: This has resolved (5) Anemia Current Visit: Yes Status: Chronic Assessment and plan: HGb at baseline 10. Will check iron levels. Could be related to chronic liver disease Qualifiers: Anemia type: other cause Other causes of anemia: chronic disease, other Qualified Code(s): D63.8 - Anemia in other chronic diseases classified elsewhere (6) Pancreatitis Current Visit: Yes Status: Chronic Assessment and plan: patient has been placed back on Creon. Continue and advance diet as tolerated Qualifiers: Chronicity: chronic Pancreatitis type: alcohol induced Qualified Code(s) : K86.0 - Alcohol-induced chronic pancreatitis (7) Acute chest wall pain Current Visit: Yes Status: Acute Assessment and plan: patient having right-sided chest wall pain. Most likely musculoskeletal pain. Treat with NSAIDs as needed - Subjective Interval history: Patient complaining of right-sided chest wall pain. has been tachycardic. received intravenous Ativan this morning for signs of withdrawal.complains of some nausea but has been tolerating diet well. - Constitutional Vitals: Temp Pulse Resp BP Pulse Ox 98.2 F 99 17 116/82 99 11/08/16 11:45 11/08/16 11:45 11/08/16 11:45 11/08/16 11:45 11/08/16 11:45 General appearance: Present: cooperative, A&O X 3, answers questions appropriately - Respiratory Respiratory exam: Present: chest wall tenderness (right sided), CTAB. Absent: accessory muscle use, rales, rhonchi, wheezes - Cardiovascular Cardiovascular exam: Present: RRR, +S1, +S2, tachycardia. Absent: diastolic murmur, gallop, rubs, systolic murmur - Extremities Exam Extremities exam: Present: warm, radial pulses palpable and symetrical. Absent : calf tenderness, cyanotic, pedal edema - Neurological Exam Neurological exam: Present: CN II-XII intact, oriented X3, no focal deficits. Absent: facial droop, speech deficit - Skin Skin exam: Present: dry, intact Internal Medicine: Result - Labs CBC & Chem 7: 11/08/16 06:07 11/08/16 06:07 Labs: Short CBC 11/08/16 Range/Units 06:07 WBC 8.0 (4.3-11.1) K/mcL Hgb 10.2 L (11.5-15.4) g/dL Hct 31.4 L (35.3-44.9) % Plt Count 187 (140-400) K/mcL Neutrophils # 5.2 (1.6-8.9) K/mcL BMP 11/08/16 06:07 Sodium 143 Potassium 3.6 Chloride 109 Carbon Dioxide 25 BUN 3 L Creatinine 0.51 L Glucose 80 Calcium 7.9 L Liver Function 11/08/16 Range/Units 06:07 Total Bilirubin 1.0 (0.2-1.2) mg/dL Direct Bilirubin 0.5 (0.0-0.5) mg/dL AST 125 H (5-34) Units/L ALT 82 H (0-55) Units/L Alkaline Phosphatase 298 H (38-126) Units/L Albumin 2.1 L D (3.5-5.0) g/dL - ABG Interpretation ABG results: ABG ABG pH 7.29 pH Units (7.32-7.45) L 11/05/16 12:00 ABG pCO2 34 mmHg (35-45) L 11/05/16 12:00 ABG pO2 128 mmHg (85-104) H 11/05/16 12:00 ABG O2 Saturation 99 % (95-98) H 11/05/16 12:00 PT/INR, D-dimer PT 12.7 Seconds (9.4-12.1) H 11/05/16 11:55 Consult Discharge Plan - Plan Referrals: NO,PCP [Primary Care Provider] -
[2016-11-08] MEDS: OLANZapine 10 MG TAB.RAPDIS PO SCH (20:32)
[2016-11-09 05:47] LABS: % Iron Saturation 34 % (15-50); Alanine Aminotransferase 58 Units/L (0-55); Albumin/Globulin Ratio 0.7 (1.1-2.2); Alkaline Phosphatase 196 Units/L (38-126); Aspartate Amino Transferase 56 Units/L (5-34); BUN/Creatinine Ratio 10 (6-26); Bilirubin,Direct 0.3 mg/dL (0.0-0.5); Bilirubin,Indirect 0.3 mg/dL (0.0-1.2); Bilirubin,Total 0.6 mg/dL (0.2-1.2); Calcium 7.7 mg/dL (8.6-10.8); Carbon Dioxide 22 mEq/L (19-29); Chloride 111 mEq/L (98-109); Globulin 2.5 g/dL (2.4-3.5); Glucose 75 mg/dL (70-99); Iron 39 mcg/dL (50-170); Magnesium 1.8 mg/dL (1.6-2.6); Osmolality,Calculated 290 (280-300); Potassium 3.6 mEq/L (3.5-4.5); Sodium 142 mEq/L (136-145); Total Protein 4.3 g/dL (6.0-8.3); Transferrin 82 mg/dL (180-382); eGFR For African Americans > 60 (> 60); eGFR For Non-African Americans > 60 (> 60)
[2016-11-09 05:49] LABS: Albumin 1.8 g/dL (3.5-5.0); Blood Urea Nitrogen 5 mg/dL (7-20)
[2016-11-09 05:54] LABS: Basophils % 0.6 %; Eosinophils # 0.3 K/mcL (0.0-0.6); Hematocrit 28.3 % (35.3-44.9); Hemoglobin 8.9 g/dL (11.5-15.4); Immature Granulocytes % 1.7 % (0-4); Lymphocytes # 2.1 K/mcL (0.6-4.6); Lymphocytes % 39.9 %; Mean Corpuscular HGB Conc 31.4 g/dL (31.6-35.5); Mean Corpuscular Hemoglobin 29.6 pg (28.0-33.3); Mean Platelet Volume 10.3 fL (9.4-12.4); Monocytes # 0.4 K/mcL (0.0-1.3); Monocytes % 8.3 %; Neutrophils # 2.3 K/mcL (1.6-8.9); Platelet Count 171 K/mcL (140-400); Red Blood Count 3.01 M/mcL (3.82-4.97); Red Cell Distribution Width 25.4 % (11.5-14.5); Segmented Neutrophils % 44.5 %
[2016-11-09 06:08] LABS: Ferritin 139 ng/ml (5-204)
[2016-11-09] MEDS: *HR* Enoxaparin 40 MG/0.4 ML SYRINGE SQ SCH (06:18)
[2016-11-09] MEDS: Famotidine 20 MG/2 ML VIAL IVP SCH ×2 (06:18→18:31)
[2016-11-09 06:40] LABS: Thyroid Stimulating Hormone 6.012 mcIU/mL (0.350-4.840)
[2016-11-09 06:42] LABS: Anisocytosis 2+ (Not Present); Microcytosis Present (Not Present); Target Cells 1+ (Not Present)
[2016-11-09 06:43] LABS: Hypochromasia Present (Not Present); Macrocytosis Present (Not Present); Platelet Estimate Normal (Normal); Polychromasia 1+ (Not Present)
[2016-11-09] MEDS ORDERED: Water for inj. (sterile) 10 ML IV ONE (08:13)
[2016-11-09] MEDS: *HR* LORazepam 2 MG/ML VIAL IVP PRN (08:16)
[2016-11-09] MEDS: GuaiFENesin Liq 200 MG/10 ML UDC PO PRN ×2 (08:26→18:31)
[2016-11-09] MEDS: Thiamine (B-1) 100 MG TABLET PO SCH (09:58)
[2016-11-09] MEDS: Folic Acid 1 MG TABLET PO SCH (09:58)
[2016-11-09] MEDS: Vitamin B Complex/Vit C/Vit E 1 EACH TABLET PO SCH (09:58)
[2016-11-09] MEDS: Ketorolac 30 MG/ML VIAL IVP PRN ×2 (09:58→16:50)
[2016-11-09] MEDS: Nicotine 21 MG PATCH.TD24 TD SCH (09:59)
--- NOTE | 2016-11-09 11:17 | Discharge Summary ---
Date of Encounter: 11/09/16 Time of Encounter: 11:15 - Discharge Diagnosis (1) Acute respiratory failure with hypoxia Priority: Primary Status: Resolved (2) Alcohol withdrawal Priority: Secondary Status: Acute Qualifiers: Complication of substance-induced condition: uncomplicated Qualified Code(s ): F10.230 - Alcohol dependence with withdrawal, uncomplicated (3) Alcoholism Priority: Secondary Status: Chronic (4) Encephalopathy acute Priority: Secondary Status: Resolved (5) Anemia Priority: Secondary Status: Chronic Qualifiers: Anemia type: other cause Other causes of anemia: chronic disease, other Qualified Code(s): D63.8 - Anemia in other chronic diseases classified elsewhere (6) Pancreatitis Priority: Secondary Status: Chronic Qualifiers: Chronicity: chronic Pancreatitis type: alcohol induced Qualified Code(s) : K86.0 - Alcohol-induced chronic pancreatitis (7) Acute chest wall pain Priority: Secondary Status: Acute (8) Suicide attempt Priority: Secondary Status: Acute - Discharge Medications Prescriptions: Ibuprofen [Motrin] 800 mg PO Q8HR #20 tablet Ferrous Sulfate 325 mg PO DAILY #20 tablet Home Medications: Cyanocobalamin (B-12) [Vitamin B12] 1 ml IJ QMONTH 12/20/14 [History] OLANZapine [Zyprexa] 20 mg PO HS 12/20/14 [History] Sucralfate [Carafate] 1 gm PO QIDAC 12/20/14 [History] Promethazine [Phenergan] 25 mg PO Q8HR PRN #90 tablet 12/21/14 [Rx] Simethicone [Gas-X] 80 mg PO TID PRN 02/04/15 [History] Diphenoxylate/Atropine [Lomotil 2.5 mg/0.025 mg] 1 each PO QID PRN 07/28/15 [ History] Esomeprazole Magnesium [Nexium] 40 mg PO BID #60 capsule. 02/29/16 [Rx] Potassium Chloride [Klor-Con M15] 15 meq PO DAILY 05/02/16 [History] Lipase/Protease/Amylase [Virgilio Ramos 36,000 Units Capsule] 3 cap PO TIDWM 10/03/16 [History] Albuterol Sulfate [Proair Hfa] 2 puff IH Q6H PRN 10/17/16 [History] Dextroamphetamine/Amphetamine [Adderall 10 mg Tablet] 10 mg PO TID 10/17/16 [ History] Ergocalciferol (VITAMIN D2) [Vitamin D2] 50,000 unit PO TU 10/17/16 [History] Lactose-Reduced Food [Ensure Plus] 1 bottle PO TID #90 can 10/18/16 [Rx] Vilazodone HCl [Viibryd] 20 mg PO DAILY #30 tablet 10/18/16 [Rx] Calcium Carbonate [Tums] 1,000 mg PO QID #30 tab.chew 10/27/16 [Rx] Folic Acid 1 mg PO DAILY tablet 10/27/16 [Rx] Pantoprazole Sodium [Protonix] 40 mg PO BID #60 tablet.dr 10/27/16 [Rx] Thiamine (B-1) [Vitamin B-1] 100 mg PO DAILY tablet 10/27/16 [Rx] Albuterol Sulfate [Albuterol Inhaler] 2 puff IH QID #1 inhaler 10/28/16 [Rx] Benzonatate [Tessalon] 200 mg PO TID PRN #20 capsule 10/28/16 [Rx] Ferrous Sulfate 325 mg PO DAILY #20 tablet 11/09/16 [Rx] Ibuprofen [Motrin] 800 mg PO Q8HR #20 tablet 11/09/16 [Rx] Thiamine (B-1) [Vitamin B-1] 100 mg PO DAILY tab 11/09/16 [Rx] Allergies/Adverse Reactions: Allergies cephalexin Allergy (Verified 10/10/16 17:08) Rash clindamycin Allergy (Verified 10/10/16 17:08) Rash nalbuphine [From Nubain] Adverse Reaction (Verified 10/10/16 17:08) "didn't like the way it made me feel" Procedures/tests Complete & Pending: Procedures Performed prior 72 hours Category Date Time Status ECG 12 lead ECG [ECG] Routine Y 11/06/16 13:56 Completed Date of admission: 11/05/16 12:07 Primary care physician: PCP NO Consults: 11/05/16 14:14 Consult to Nutrition [CONS] Routine Comment: Consulting Provider: NUTRITION Reason for Dietary Consult: MST Score 11/06/16 13:27 Consult to Business Consultant [CONS] Routine Reason for SW Consult: etoh od Discharging clinician: Tristin Chatterjee Anticipated date of discharge: 07/20/17 - Patient Status Disposition: Transfer Psychiatric Hosp Condition: Good Functional capacity at discharge: independent ambulation Overall status at discharge: patient is progressing back to baseline - Discharge Instructions Instructions: Chest Pain (DC), Acute Respiratory Distress Syndrome (DC), Pancreatitis (DC), Anemia (GEN) Follow Up With: Fam Rubin DO [Resident] - 11/20/16 10:00 am Forms: ED Satisfaction Letter - Diet and Activity Activity: increase activity as tolerated Diet: advance to your usual diet Hospital course: Ms. Abdi is a 41 year old female patient who was admitted here with acute respiratory failure and acute encephalopathy after she was found after possible alcohol overdose at home in a bathtub. She was not submerged. She has a history of bipolar disorder and opiate abuse disorder along with alcoholic liver disease and chronic pancreatitis. She was admitted to ICU as she was intubated and required mechanical ventilation. After her mental status improved , she was extubated and transferred to the floor. Initial set of blood cultures drawn in the ER was positive for staph hemolyticus which is most likely a contaminant. Her sputum culture was also positive for Klebsiella oxytoca but patient did not have any signs of upper respiratory. As such pulmonology did not recommend that this be treated. On the [facility] floor, she exhibited some signs of alcohol withdrawal and was treated per the [facility] protocol. She has slowly improved medically and is doing much better. She did complain of right-sided chest wall pain is likely musculoskeletal. Her troponins have been negative and her EKG does not show any acute ST segment changes. Vision has been medically cleared for discharge. However just prior to discharge, she patient informed her family members that she had attempted to commit suicide by taking multiple benzodiazepines and alcohol prior to her presentation. As such psychiatry has been consulted. After evaluating the patient, they have recommended that the patient be admitted to inpatient psychiatric unit. Patient will be transferred there at discharge once they have a bed available. - Time Spent with Patient Total time spent providing and/or coordinating discharge services: Greater than 30 minutes (40 min) - Constitutional Vitals: Temp Pulse Resp BP Pulse Ox 97.3 F L 126 18 111/73 100 11/09/16 07:28 11/09/16 07:28 11/09/16 07:28 11/09/16 07:28 11/09/16 07:28 General appearance: Present: cooperative, A&O X 3, answers questions appropriately - Neck Neck exam general surgery: Present: supple, trachea midline. Absent: lymphadenopathy - Respiratory Respiratory exam: Present: chest wall tenderness (right sided), CTAB. Absent: accessory muscle use, rales, rhonchi, wheezes - Cardiovascular Cardiovascular exam: Present: RRR, +S1, +S2. Absent: diastolic murmur, gallop, rubs, systolic murmur - Extremities Exam Extremities exam: Present: warm, radial pulses palpable and symetrical. Absent : calf tenderness, cyanotic, pedal edema - Neurological Exam Neurological exam: Present: alert, oriented X3, no focal deficits. Absent: facial droop, speech deficit
--- NOTE | 2016-11-09 16:03 | Consult Note ---
Date of Encounter: 11/09/16 Time of Encounter: 15:00 Assessment & Recommendation (1) Suicide attempt Current visit: Yes Status: Acute History of Present Illness Requesting Physician: Tristin Chatterjee MD Reason for consult: Psych eval s/p suicide attempt History of present illness: Ms. Abdi is a 41 year old female single, unemployed, on SSI, lives by self, with a h/o Bipolar disorder. alcohol use disorder, multiple inpatient hospitalizations admitted to the medicine floor after patient was found in the bathtub in the home setting non-submerged by family members in apparent suicide attempt. Psychiatry consulted for clearance after medically stabilized. Patient seen at bedside thsi after in bed in no apparent distress. She admitted to overdoing on all her Zyprexa (unable to recall quantity) whiles heavily intoxicated because she felt alone and wanted to end her life. Patient reports being remorseful about her act and does not wish to . She reported feeling depressed since her 18y/o daughter moved out after she had a baby. She reported feeling overwhelmed and embarrassed by drinking and inability to help herself amd is thankful to be alive. She does not want to be admitted to the inpatient unit and requested to be discharged to the mother who according to patient is willing to have her and keep an eye her till she follows up with her out patient psychiatrist. Electronics Engineering Manager spoke with the mother ([phone]) who is not willing to have patient discharged to her explaining she is disabled and will not able to keep an eye on patient. She reported patient having a h/o with noncompliance with her medications and doing things her way. Patient remains a risk to self if discharge home by self and family also wish for patient to receive additional help. Patient will be transferred to Psychiatry Inpatient unit when medically cleared. CC: Tristin Chatterjee MD Past Med Surg Social Fam HX - Past Medical History Medical history: cirrhosis, diabetes, GERD, hyperlipidemia, hypertension, liver disease, other - Past Psychiatric History Psychiatric history: Reports: bipolar, prior suicide attempt - Past Surgical History Surgical History: appendectomy, cholecystectomy, herniorrhaphy, hysterectomy, other - Social History Smoking Status: Current every day smoker Smokeless Tobacco Status: No Alcohol use: none, recent Drug use: unknown, opiates - Family History Father Living Status: Still Living Hx Family Cardiac Disorders: No Hx Family Respiratory Disorders: No Hx Family Cancer: No Hx Family GI Disorders: No Hx Family Endocrine Disorder: No Hx Family Neuromuscular Disorders: No Hx Family Neurologic Disorders: No Hx Family HEENT Disorders: No Hx Family Autoimmune Disorders: No Grandfather Living Status: Hx Family Cardiac Disorders: Yes ([place]) Maternal Grandmother Living Status: Still Living Hx Family Cancer: Yes (Lung) Sister Living Status: Still Living Hx Family Cancer: Yes (Ovarian) Mother Adopted: No Living Status: Still Living Hx Family Cardiac Disorders: No Hx Family Respiratory Disorders: No Hx Family Cancer: No Hx Family GI Disorders: No Hx Family Endocrine Disorder: Yes (hypothyroidism) Hx Family Neuromuscular Disorders: No Hx Family Neurologic Disorders: No Hx Family HEENT Disorders: No Hx Family Autoimmune Disorders: No Medications & Allergies Cyanocobalamin (B-12) [Vitamin B12] 1 ml IJ QMONTH 12/20/14 [History] OLANZapine [Zyprexa] 20 mg PO HS 12/20/14 [History] Sucralfate [Carafate] 1 gm PO QIDAC 12/20/14 [History] Promethazine [Phenergan] 25 mg PO Q8HR PRN #90 tablet 12/21/14 [Rx] Simethicone [Gas-X] 80 mg PO TID PRN 02/04/15 [History] Diphenoxylate/Atropine [Lomotil 2.5 mg/0.025 mg] 1 each PO QID PRN 07/28/15 [ History] Esomeprazole Magnesium [Nexium] 40 mg PO BID #60 humble. 02/29/16 [Rx] Potassium Chloride [Klor-Con M15] 15 meq PO DAILY 05/02/16 [History] Lipase/Protease/Amylase [Virgilio Ramos 36,000 Units Capsule] 3 cap PO TIDWM 10/03/16 [History] Albuterol Sulfate [Proair Hfa] 2 puff IH Q6H PRN 10/17/16 [History] Dextroamphetamine/Amphetamine [Adderall 10 mg Tablet] 10 mg PO TID 10/17/16 [ History] Ergocalciferol (VITAMIN D2) [Vitamin D2] 50,000 unit PO TU 10/17/16 [History] Lactose-Reduced Food [Ensure Plus] 1 bottle PO TID #90 can 10/18/16 [Rx] Vilazodone HCl [Viibryd] 20 mg PO DAILY #30 tablet 10/18/16 [Rx] Calcium Carbonate [Tums] 1,000 mg PO QID #30 tab.chew 10/27/16 [Rx] Folic Acid 1 mg PO DAILY tablet 10/27/16 [Rx] Pantoprazole Sodium [Protonix] 40 mg PO BID #60 tablet.dr 10/27/16 [Rx] Thiamine (B-1) [Vitamin B-1] 100 mg PO DAILY tablet 10/27/16 [Rx] Albuterol Sulfate [Albuterol Inhaler] 2 puff IH QID #1 inhaler 10/28/16 [Rx] Benzonatate [Tessalon] 200 mg PO TID PRN #20 capsule 10/28/16 [Rx] Ferrous Sulfate 325 mg PO DAILY #20 tablet 11/09/16 [Rx] Ibuprofen [Motrin] 800 mg PO Q8HR #20 tablet 11/09/16 [Rx] Thiamine (B-1) [Vitamin B-1] 100 mg PO DAILY tab 11/09/16 [Rx] Allergies cephalexin Allergy (Verified 10/10/16 17:08) Rash clindamycin Allergy (Verified 10/10/16 17:08) Rash nalbuphine [From Nubain] Adverse Reaction (Verified 10/10/16 17:08) "didn't like the way it made me feel" Mental Status Exam Patient orientation: Yes Person, Yes Time, Yes Place Level of alertness: Alert Patient appearance: Appropriate, Well Groomed Behavior: calm, cooperative Psychomotor activity: Normal Eye contact: Maintains Eye Contact Mood description: Depressed Affect description: congruent with mood, full range Speech pattern: Normal rate, Normal rhythm, Normal tone Speech volume: Normal Thought process: Linear, Goal Oriented Thought content: No Suicidal ideation, No Homicidal ideation, No Overt delusions Perceptual disturbances: No Auditory hallucinations, No Visual hallucinations Attention span: Capable of Focused Attention Memory description: Grossly Intact Patient reliability: Reliable Historian Intelligence estimate: Average Judgment: Limited Insight: Partial Results - Vital Signs Vital signs: Temp Pulse Resp BP Pulse Ox 97.9 F 101 18 114/82 99 11/09/16 15:52 11/09/16 15:52 11/09/16 15:52 11/09/16 15:52 11/09/16 15:52 - Labs Labs: Laboratory Last Values WBC 5.2 K/mcL (4.3-11.1) 11/09/16 04:13 RBC 3.01 M/mcL (3.82-4.97) L 11/09/16 04:13 Hgb 8.9 g/dL (11.5-15.4) L 11/09/16 04:13 Hct 28.3 % (35.3-44.9) L 11/09/16 04:13 MCV 94.0 fL (83.0-100.0) 11/09/16 04:13 MCH 29.6 pg (28.0-33.3) 11/09/16 04:13 MCHC 31.4 g/dL (31.6-35.5) L 11/09/16 04:13 RDW 25.4 % (11.5-14.5) H 11/09/16 04:13 Plt Count 171 K/mcL (140-400) 11/09/16 04:13 MPV 10.3 fL (9.4-12.4) 11/09/16 04:13 Immature Gran % 1.7 % (0-4) 11/09/16 04:13 Seg Neutrophils % 44.5 % 11/09/16 04:13 Lymphocytes % 39.9 % 11/09/16 04:13 Monocytes % 8.3 % 11/09/16 04:13 Eosinophils % 5.0 % 11/09/16 04:13 Basophils % 0.6 % 11/09/16 04:13 Neutrophils # 2.3 K/mcL (1.6-8.9) 11/09/16 04:13 Lymphocytes # 2.1 K/mcL (0.6-4.6) 11/09/16 04:13 Monocytes # 0.4 K/mcL (0.0-1.3) 11/09/16 04:13 Eosinophils # 0.3 K/mcL (0.0-0.6) 11/09/16 04:13 Basophils # 0.0 K/mcL (0.0-0.2) 11/09/16 04:13 Platelet Estimate Normal (Normal) 11/09/16 04:13 Immature Plt Fraction 2.8 % (1.1-6.1) 11/07/16 03:50 Polychromasia 1+ (Not Present) A 11/09/16 04:13 Hypochromasia Present (Not Present) A 11/09/16 04:13 Anisocytosis 2+ (Not Present) A 11/09/16 04:13 Microcytosis Present (Not Present) A 11/09/16 04:13 Macrocytosis Present (Not Present) A 11/09/16 04:13 Target Cells 1+ (Not Present) A 11/09/16 04:13 Rouleaux Present (Not Present) A 11/06/16 07:35 PT 12.7 Seconds (9.4-12.1) H 11/05/16 11:55 INR 1.2 11/05/16 11:55 APTT 30.5 Seconds (26.0-36.0) 11/05/16 11:55 ABG pH 7.29 pH Units (7.32-7.45) L 11/05/16 12:00 ABG pCO2 34 mmHg (35-45) L 11/05/16 12:00 ABG pO2 128 mmHg (85-104) H 11/05/16 12:00 ABG HCO3 16.3 mEQ/L (21-27) L 11/05/16 12:00 ABG Total CO2 17.3 mEq/L (20-26) L 11/05/16 12:00 ABG O2 Saturation 99 % (95-98) H 11/05/16 12:00 ABG Base Excess -9.4 mEq/L (-2.0 to 3.0) L 11/05/16 12:00 Blood Gas Modality VENT 11/05/16 12:00 Inspired O2 30 % 11/05/16 12:00 Sodium 142 mEq/L (136-145) 11/09/16 04:13 Potassium 3.6 mEq/L (3.5-4.5) 11/09/16 04:13 Chloride 111 mEq/L (98-109) H 11/09/16 04:13 Carbon Dioxide 22 mEq/L (19-29) 11/09/16 04:13 BUN 5 mg/dL (7-20) L 11/09/16 04:13 Creatinine 0.48 mg/dL (0.57-1.11) L 11/09/16 04:13 Est GFR ( Amer) > 60 (> 60) 11/09/16 04:13 Est GFR (Non-Af Amer) > 60 (> 60) 11/09/16 04:13 BUN/Creatinine Ratio 10 (6-26) 11/09/16 04:13 Glucose 75 mg/dL (70-99) 11/09/16 04:13 POC Glucose 105 (58-89) H 11/07/16 11:29 Serum Osmolality 287 mOsm/kg (280-300) 11/06/16 07:35 Calculated Osmolality 290 (280-300) 11/09/16 04:13 Calcium 7.7 mg/dL (8.6-10.8) L 11/09/16 04:13 Ionized Calcium 1.08 mmol/L (1.15-1.35) L 11/06/16 07:35 Phosphorus 3.1 mg/dL (2.3-4.7) 11/06/16 07:35 Magnesium 1.8 mg/dL (1.6-2.6) 11/09/16 04:13 Iron 39 mcg/dL (50-170) L 11/09/16 04:13 % Saturation 34 % (15-50) 11/09/16 04:13 Transferrin 82 mg/dL (180-382) L 11/09/16 04:13 Ferritin 139 ng/ml (5-204) 11/09/16 04:13 Total Bilirubin 0.6 mg/dL (0.2-1.2) 11/09/16 04:13 Direct Bilirubin 0.3 mg/dL (0.0-0.5) 11/09/16 04:13 Indirect Bilirubin 0.3 mg/dL (0.0-1.2) 11/09/16 04:13 AST 56 Units/L (5-34) H 11/09/16 04:13 ALT 58 Units/L (0-55) H 11/09/16 04:13 Alkaline Phosphatase 196 Units/L (38-126) H 11/09/16 04:13 Ammonia 17 mcmol/L (18-72) L 11/05/16 13:55 Creatine Kinase 152 Units/L (29-168) 11/05/16 11:55 Troponin I 0.00 ng/mL (0-0.03) 11/05/16 11:55 Serum Total Protein 4.3 g/dL (6.0-8.3) L 11/09/16 04:13 Albumin 1.8 g/dL (3.5-5.0) L 11/09/16 04:13 Globulin 2.5 g/dL (2.4-3.5) 11/09/16 04:13 Albumin/Globulin Ratio 0.7 (1.1-2.2) L 11/09/16 04:13 Vitamin B12 1083 pg/mL (213-816) H 11/09/16 04:13 TSH 6.012 mcIU/mL (0.350-4.840) H 11/09/16 04:13 Free T4 0.85 ng/dl (0.70-1.48) 11/09/16 04:13 Urine Color Dark Yellow (Yellow) 11/05/16 11:47 Urine Clarity Clear (Clear) 11/05/16 11:47 Urine pH 6.0 pH Units (5.0-8.0) 11/05/16 11:47 Ur Specific [place] 1.017 (1.010-1.025) 11/05/16 11:47 Urine Protein Trace mg/dL (Neg-Trace) 11/05/16 11:47 Urine Glucose (UA) Normal mg/dL (Normal) 11/05/16 11:47 Urine Ketones 40 mg/dL (Negative) H 11/05/16 11:47 Urine Blood Negative (Negative) 11/05/16 11:47 Urine Nitrite Negative (Negative) 11/05/16 11:47 Urine Bilirubin Small (Negative) H 11/05/16 11:47 Urine Urobilinogen 4.0 mg/dL (Normal) H 11/05/16 11:47 Ur Leukocyte Esterase Negative (Negative) 11/05/16 11:47 Urine Microscopic RBC 0-3 per hpf (0-3) 11/05/16 11:47 Urine Microscopic WBC 0-3 per hpf (0-3) 11/05/16 11:47 Urine Bacteria Few per hpf (None-Few) 11/05/16 11:47 Granular Casts Few per lpf (None Seen) H 11/05/16 11:47 Urine Mucus Moderate (Few) H 11/05/16 11:47 Ur Culture Indicated? NO (NO) 11/05/16 11:47 Urine Test Negative (Negative) 11/05/16 11:47 Stool Occult Blood Positive (Negative) A 11/05/16 12:30 Salicylates < 5.0 mg/dL (15-30) L 11/05/16 13:55 Urine Opiates Screen Negative ng/mL (Mmxdoe=868) 11/05/16 11:47 Acetaminophen < 1.0 mcg/mL (10-30) L 11/05/16 13:55 Ur Barbiturates Screen Negative ng/mL (Afvdzp=059) 11/05/16 11:47 Ur Phencyclidine Scrn Negative ng/mL (Cutoff=25) 11/05/16 11:47 Ur Amphetamines Screen Negative ng/mL (Xgwkhy=2838) 11/05/16 11:47 U Benzodiazepines Scrn Positive ng/mL (Lngwfl=366) H 11/05/16 11:47 Urine Cocaine Screen Negative ng/mL (Cutoff= 300) 11/05/16 11:47 U Marijuana (THC) Screen Negative ng/mL (Cutoff = 50) 11/05/16 11:47 Ethyl Alcohol 144 mg/dL (0-10) H 11/05/16 11:55 A. baumannii (PCR) Not Detected (Not Detect) 11/05/16 11:55 Shital albicans (PCR) Not Detected (Not Detect) 11/05/16 11:55 C. glabrata (PCR) Not Detected (Not Detect) 11/05/16 11:55 C. krusei (PCR) Not Detected (Not Detect) 11/05/16 11:55 C. parapsilosis (PCR) Not Detected (Not Detect) 11/05/16 11:55 C. tropicalis (PCR) Not Detected (Not Detect) 11/05/16 11:55 Enterobacteriac sp PCR Not Detected (Not Detect) 11/05/16 11:55 E. cloacae complex PCR Not Detected (Not Detect) 11/05/16 11:55 Enterococcus sp PCR Not Detected (Not Detect) 11/05/16 11:55 E. coli (PCR) Not Detected (Not Detect) 11/05/16 11:55 H. influenzae (PCR) Not Detected (Not Detect) 11/05/16 11:55 Klebsiella oxytoca PCR Not Detected (Not Detect) 11/05/16 11:55 Klebsiella pneumoniae Not Detected (Not Detect) 11/05/16 11:55 List. monocytogenes PCR Not Detected (Not Detect) 11/05/16 11:55 N. meningitidis (PCR) Not Detected (Not Detect) 11/05/16 11:55 Proteus species (PCR) Not Detected (Not Detect) 11/05/16 11:55 Serratia marcescens PCR Not Detected (Not Detect) 11/05/16 11:55 Staphylococcus sp PCR DETECTED (Not Detect) A 11/05/16 11:55 Staph aureus (PCR) Not Detected (Not Detect) 11/05/16 11:55 mecA-Methicil Res Gene Not Detected (Not Detect) 11/05/16 11:55 Streptococcus sp PCR Not Detected (Not Detect) 11/05/16 11:55 Group A Strep DNA Not Detected (Not Detect) 11/05/16 11:55 Group B Strep (PCR) Not Detected (Not Detect) 11/05/16 11:55 Strep pneumoniae (PCR) Not Detected (Not Detect) 11/05/16 11:55 P. aeruginosa (PCR) Not Detected (Not Detect) 11/05/16 11:55 Jensen/B-Vanco Res Genes N/A (Not Detect) 11/05/16 11:55 KPC (blaKPC) Detect PCR N/A (Not Detect) 11/05/16 11:55 Blood Type A POSITIVE 11/05/16 13:55 Antibody Screen NEGATIVE 11/05/16 13:55 - Impressions Impressions Chest X-Ray 11/09/16 08:58 IMPRESSION: No acute abnormality. D/ : / 11/09/2016 10:02:45 Jorje Jose MD / Olga Whitlock Interpreting Provider: Jorje Jose MD Consult Discharge Plan - Plan Instructions: Chest Pain (DC), Acute Respiratory Distress Syndrome (DC), Pancreatitis (DC), Anemia (GEN) Referrals: Fam Rubin DO [Resident] - 11/20/16 10:00 am Prescriptions: Ibuprofen [Motrin] 800 mg PO Q8HR #20 tablet Ferrous Sulfate 325 mg PO DAILY #20 tablet
[2016-11-09] MEDS: *HR* Promethazine 25 MG/ML VIAL IVP PRN (16:50)
[2016-11-09 19:31] VITALS: BP 106/73
== END 2016-11-09 21:20 | disposition home or self-care (01) | DRG 917 ==
LOC: EMEROO 11:06 → ICNU 12:07 → 3ANU 11-07 15:54
PROVIDERS: ADMIT Specialist; ATTEND Internal Medicine

== ENCOUNTER 2016-11-09 21:36 | Inpatient (IN) ==
[2016-11-09] MEDS ORDERED: *HR* LORazepam 2 MG/ML VIAL IM PRN (23:12)
[2016-11-09] MEDS ORDERED: Acetaminophen 325 MG TABLET PO PRN (23:12)
[2016-11-09] MEDS ORDERED: MOM Conc 10 ML UD.LIQ PO PRN (23:12)
[2016-11-09] MEDS ORDERED: Haloperidol Lactate 5 MG/ML VIAL IM PRN (23:12)
[2016-11-09] MEDS ORDERED: Mag Hydrox/Al Hydrox/Simeth 30 ML UDC PO PRN (23:12)
[2016-11-09] MEDS ORDERED: Benzonatate 100 MG CAPSULE PO PRN (23:25)
[2016-11-09] MEDS ORDERED: Simethicone 80 MG TAB.CHEW PO PRN (23:25)
[2016-11-09] MEDS ORDERED: CYANOCOBALAMIN SQ SCH (23:30)
[2016-11-10] MEDS: traZODone 50 MG TABLET PO PRN ×2 (00:18→21:11)
[2016-11-10] MEDS: Ibuprofen 800 MG TABLET PO SCH ×3 (00:18→16:06)
[2016-11-10] MEDS ORDERED: (Ensure Plus] 1 BOTTLE) PO SCH (09:00)
[2016-11-10] MEDS: Nicotine 21 MG PATCH.TD24 TD SCH (09:21)
[2016-11-10] MEDS: Thiamine (B-1) 100 MG TABLET PO SCH (09:23)
[2016-11-10] MEDS: hydrOXYzine pamoate 25 MG CAPSULE PO PRN ×3 (09:27→21:11)
[2016-11-10] MEDS: Folic Acid 1 MG TABLET PO SCH (09:27)
[2016-11-10] MEDS: ADDERALL 10 MG PO SCH ×3 (09:29→21:07)
[2016-11-10] MEDS: *HR* LORazepam 1 MG TABLET PO PRN ×2 (12:19→17:06)
--- NOTE | 2016-11-10 13:05 | Psychiatry History & Physical ---
Date of Encounter: 11/10/16 Time of Encounter: 12:30 History of Present Illness Medicare Admission Attestation: For traditional Medicare patients the provided hospital inpatient services are reasonable and necessary and in the case of services not specified as inpatient -only under 42 CFR 419.22 (n), that they are appropriately provided as inpatient services in accordance 42 CFR 412.3. For Critical Access Hospital the patient may reasonably be expected to be discharged or transferred to a hospital within 96 hours after admission to the Critical Access Hospital. History of Present Illness: Ms. Abdi is a 41 year old female single, unemployed, on SSI, lives by self, with a h/o Bipolar disorder. alcohol use disorder, multiple inpatient hospitalizations admitted to the medicine floor after patient was found in the bathtub in the home setting non-submerged by family members in apparent suicide attempt who was transferred to the unit after stabilition. Patient was initially evaluated at bedside on the medicine floor during which time she admitted to overdoing on all her Zyprexa (unable to recall quantity) whiles heavily intoxicated because she felt alone and wanted to end her life. Patient reports being remorseful about her act and does not wish to . She reported feeling depressed since her 18y/o daughter moved out after she had a baby. Patient was seen this morning and evaluated by a multidisciplinary treatment teamm on rounds. She was calm, cooperative and well related. She appeared, sad, tearful, anxious and remorseful about her suicide attempt She reported feeling overwhelmed by drinking and ongoing finacial issues. She has not been able pay her electricity and gas bill because she was binge drinking with her money. Patient also reported noncompliance with her medications before her admission and which to get back on all her meds. She also requested for help with her alcoholism. She reports feeling depressed and hopeless but does not wish to end her life and sincerely want help. She does not want her family to suffer more than they have already done. Denied problems with sleep or appetite. Examination negative for symptoms of withdrawals from alcohol. On review of symptoms, she denied othe rmood or psychotic symptoms. Past Med Surg Social Fam HX - Past Medical History Medical history: cirrhosis, diabetes, GERD, hyperlipidemia, hypertension, liver disease, other - Past Surgical History Surgical History: appendectomy, cholecystectomy, herniorrhaphy, hysterectomy, other - Social History Smoking Status: Current every day smoker Smokeless Tobacco Status: No Alcohol use: none, recent Drug use: unknown, opiates - Family History Father Living Status: Still Living Hx Family Cardiac Disorders: No Hx Family Respiratory Disorders: No Hx Family Cancer: No Hx Family GI Disorders: No Hx Family Endocrine Disorder: No Hx Family Neuromuscular Disorders: No Hx Family Neurologic Disorders: No Hx Family HEENT Disorders: No Hx Family Autoimmune Disorders: No Grandfather Living Status: Hx Family Cardiac Disorders: Yes (ND) Maternal Grandmother Living Status: Still Living Hx Family Cancer: Yes (Lung) Sister Living Status: Still Living Hx Family Cancer: Yes (Ovarian) Mother Adopted: No Living Status: Still Living Hx Family Cardiac Disorders: No Hx Family Respiratory Disorders: No Hx Family Cancer: No Hx Family GI Disorders: No Hx Family Endocrine Disorder: Yes (hypothyroidism) Hx Family Neuromuscular Disorders: No Hx Family Neurologic Disorders: No Hx Family HEENT Disorders: No Hx Family Autoimmune Disorders: No Medications & Allergies Cyanocobalamin (B-12) [Vitamin B12] 1 ml IJ QMONTH 12/20/14 [History] OLANZapine [Zyprexa] 20 mg PO HS 12/20/14 [History] Sucralfate [Carafate] 1 gm PO QIDAC 12/20/14 [History] Promethazine [Phenergan] 25 mg PO Q8HR PRN #90 tablet 12/21/14 [Rx] Simethicone [Gas-X] 80 mg PO TID PRN 02/04/15 [History] Diphenoxylate/Atropine [Lomotil 2.5 mg/0.025 mg] 1 each PO QID PRN 07/28/15 [ History] Esomeprazole Magnesium [Nexium] 40 mg PO BID #60 capsule. 02/29/16 [Rx] Potassium Chloride [Klor-Con M15] 15 meq PO DAILY 05/02/16 [History] Lipase/Protease/Amylase [Virgilio Ramos 36,000 Units Capsule] 3 cap PO TIDWM 10/03/16 [History] Albuterol Sulfate [Proair Hfa] 2 puff IH Q6H PRN 10/17/16 [History] Dextroamphetamine/Amphetamine [Adderall 10 mg Tablet] 10 mg PO TID 10/17/16 [ History] Ergocalciferol (VITAMIN D2) [Vitamin D2] 50,000 unit PO TU 10/17/16 [History] Lactose-Reduced Food [Ensure Plus] 1 bottle PO TID #90 can 10/18/16 [Rx] Vilazodone HCl [Viibryd] 20 mg PO DAILY #30 tablet 10/18/16 [Rx] Calcium Carbonate [Tums] 1,000 mg PO QID #30 tab.chew 10/27/16 [Rx] Folic Acid 1 mg PO DAILY tablet 10/27/16 [Rx] Pantoprazole Sodium [Protonix] 40 mg PO BID #60 tablet.dr 10/27/16 [Rx] Albuterol Sulfate [Albuterol Inhaler] 2 puff IH QID #1 inhaler 10/28/16 [Rx] Benzonatate [Tessalon] 200 mg PO TID PRN #20 capsule 10/28/16 [Rx] Ferrous Sulfate 325 mg PO DAILY #20 tablet 11/09/16 [Rx] Ibuprofen [Motrin] 800 mg PO Q8HR #20 tablet 11/09/16 [Rx] Thiamine (B-1) [Vitamin B-1] 100 mg PO DAILY tab 11/09/16 [Rx] Allergies cephalexin Allergy (Verified 10/10/16 17:08) Rash clindamycin Allergy (Verified 10/10/16 17:08) Rash nalbuphine [From Nubain] Adverse Reaction (Verified 10/10/16 17:08) "didn't like the way it made me feel" Review of Systems Constitutional: Denies: fever, chills, weakness, weight change Eyes: Denies: eye pain, vision change Ears, Nose, Throat: Denies: ear pain, throat pain, dental pain, hearing loss, congestion Cardiovascular: Denies: chest pain, palpitations, dyspnea on exertion Respiratory: Denies: cough, dyspnea, wheezes Gastrointestinal: Denies: abdominal pain, nausea, vomiting, diarrhea, constipation Genitourinary male: Denies: urgency, dysuria, frequency, genital lesions Genitourinary female: Denies: urgency, dysuria, frequency, abnormal menses, dyspareunia Musculoskeletal: Denies: joint swelling, joint pain Integumentary: Denies: rash, lesions, pruritus Neurological: Denies: headache, weakness, numbness, memory loss Endocrine: Denies: fatigue, heat or cold intolerance Hematologic/Lymphatic: Denies: easy bruising, lymphadenopathy Allergic/Immunologic: Denies: urticaria, itchy eyes Mental Status Exam Patient orientation: Yes Person, Yes Time, Yes Place Level of alertness: Alert Patient appearance: Mal-nourished Behavior: cooperative, anxious, tearful Psychomotor activity: Slowed Eye contact: Maintains Eye Contact Mood description: Euthymic/stable, Depressed Affect description: tearful Speech pattern: Slowed Speech volume: Soft/Quiet Thought process: Linear, Goal Oriented Thought content: No Suicidal ideation, No Homicidal ideation, No Overt delusions Perceptual disturbances: No Auditory hallucinations, No Visual hallucinations Attention span: Capable of Focused Attention Memory description: Grossly Intact Patient reliability: Reliable Historian Intelligence estimate: Average Judgment: Limited Insight: Partial Results - Vital Signs Vital signs: Temp Pulse Resp BP 98.2 F 119 20 123/89 11/10/16 09:00 11/10/16 09:00 11/10/16 09:00 11/10/16 09:00 - Labs Labs: Laboratory Last Values POC Glucose 76 (58-89) 11/10/16 08:19
[2016-11-10] MEDS ORDERED: *HR* LORazepam 1 MG TABLET PO ONE (20:36)
[2016-11-10] MEDS ORDERED: OLANZapine 10 MG TAB.RAPDIS PO SCH (21:00)
[2016-11-10] MEDS: BuPROPion SR (12 HR) 100 MG TABLET PO SCH (21:06)
[2016-11-11] MEDS: Ibuprofen 800 MG TABLET PO SCH ×3 (03:50→16:17)
[2016-11-11] MEDS ORDERED: *HR* LORazepam 1 MG TABLET PO ONE (08:21)
[2016-11-11] MEDS: *HR* LORazepam 0.5 MG TABLET PO SCH ×3 (10:08→22:39)
[2016-11-11] MEDS: Folic Acid 1 MG TABLET PO SCH (10:17)
[2016-11-11] MEDS: Nicotine 21 MG PATCH.TD24 TD SCH (10:17)
[2016-11-11] MEDS: ADDERALL 10 MG PO SCH ×3 (10:18→22:39)
[2016-11-11] MEDS: BuPROPion SR (12 HR) 100 MG TABLET PO SCH ×2 (10:19→22:40)
[2016-11-11] MEDS: Thiamine (B-1) 100 MG TABLET PO SCH (10:19)
[2016-11-11] MEDS ORDERED: *HR* LORazepam 0.5 MG TABLET PO PRN (10:59)
--- NOTE | 2016-11-11 11:39 | Psychiatry Progress Note ---
Date of Encounter: 11/11/16 Time of Encounter: 10:44 Subjective Interval history: Patient seen and interviewed. History and physical examination reviewed. Patient is reporting of anxiety still going through some withdrawal symptoms with elevated pulse and blood pressure. Patient was started on Ativan taper. Patient reported that she is feeling extremely fearful of leaving the hospital. She fears that she will not do well and relapse on alcohol. She is denying suicidal ideations however endorsing hopeless and helpless feelings and unable to verbalize a safety and relapse prevention plan. I encouraged the patient to attend groups and participate in activities. A careful review of patient history does not reveal that she had any hypomanic or manic episodes. She is still reporting of restlessness at night and poor sleep with Zyprexa. We discussed the option of stopping Zyprexa and starting the patient on Remeron for her anxiety depression and insomnia and poor appetite. Patient seems to be agreeable with the plan. Review of Systems Psychiatric: Reports: depression, anxiety, abnormal sleep pattern, hopelessness , panic attacks Objective: Exam Patient orientation: Yes Person, Yes Time, Yes Place Level of alertness: Alert Patient appearance: Unkempt, Thin Behavior: anxious, tearful Psychomotor activity: Slowed Eye contact: Maintains Eye Contact Mood description: Depressed, Anxious Affect description: tearful, dysphoric, anxious Speech pattern: Normal rate, Normal rhythm, Normal tone Speech volume: Normal Thought process: Linear, Goal Oriented Thought content: No Suicidal ideation, No Homicidal ideation, No Overt delusions Perceptual disturbances: No Auditory hallucinations, No Visual hallucinations Judgment: Limited Insight: Minimal Results - Vital Signs Vital Signs: Temp Pulse Resp BP 98.3 F 124 18 105/71 11/11/16 09:00 11/11/16 09:00 11/11/16 09:00 11/11/16 09:00 - Labs Labs: Laboratory Results - last 24 hr 11/11/16 08:06 POC Glucose 218 H Assessment and Plan (1) Depression with anxiety Current visit: Yes Status: Acute Plan: Continue hospitalization, Close observation, Suicide Precautions per unit protocol, Encourage participation in unit milieu, Group Therapy, Monitor sleep, Monitor appetite Additional Plan: Will discontinue Zyprexa and start the patient on Remeron 15 mg at bedtime for insomnia and depression and poor appetite. Will continue Wellbutrin SR 100 mg twice a day. I started the patient on Ativan Taper yesterday. We will continue that Risks, benefits, side effects, alternatives discussed w/pt: Yes Patient agreeable to treatment: Yes (2) Alcohol dependence Current visit: Yes Status: Acute Plan: Continue hospitalization, Close observation, Suicide Precautions per unit protocol, Encourage participation in unit milieu, Group Therapy, Monitor sleep, Monitor appetite Additional Plan: I initiated Ativan taper for her withdrawal symptoms. Patient was also counseled extensively regarding her alcohol use and his psychological and physiological impact and was encouraged to identify triggers and develop relapse prevention plan. Risks, benefits, side effects, alternatives discussed w/pt: Yes Patient agreeable to treatment: Yes Qualifiers: Substance use status: in withdrawal Complication of substance-induced condition: uncomplicated Qualified Code(s): F10.230 - Alcohol dependence with withdrawal, uncomplicated Consult Discharge Plan - Plan Referrals: [facility] [Outside] - 11/20/16 10:00 am (The above appointment is with Dr. Fam Rubin for primary healthcare in medication management services. ) [facility] [Outside] (You will see AOD counselor, Ilda Higgins on: . You will see Aldair Alejandre, nurse, for medication and symptom review, on 11/23/2016 at 3:30pm. You will see the new psychiatric prescriber, name not yet provided, on 12/14/2016 at 4:30 PM for ongoing psychiatric assessment and medication management. )
[2016-11-11] MEDS: Diphenoxylate/Atropine 1 TAB TABLET PO PRN ×3 (13:01→22:58)
[2016-11-11] MEDS: hydrOXYzine pamoate 25 MG CAPSULE PO PRN ×2 (13:01→17:32)
[2016-11-11] MEDS: Mirtazapine 15 MG TABLET PO SCH (22:40)
[2016-11-11] MEDS: traZODone 50 MG TABLET PO PRN (22:58)
[2016-11-12] MEDS: Ibuprofen 800 MG TABLET PO SCH ×3 (02:15→15:45)
[2016-11-12] MEDS: ADDERALL 10 MG PO SCH ×3 (08:24→22:49)
[2016-11-12] MEDS: Nicotine 21 MG PATCH.TD24 TD SCH (08:30)
[2016-11-12] MEDS: *HR* LORazepam 0.5 MG TABLET PO SCH ×2 (08:30→21:25)
[2016-11-12] MEDS: Folic Acid 1 MG TABLET PO SCH (08:30)
[2016-11-12] MEDS: BuPROPion SR (12 HR) 100 MG TABLET PO SCH ×2 (08:32→21:25)
[2016-11-12] MEDS: Thiamine (B-1) 100 MG TABLET PO SCH (08:32)
[2016-11-12] MEDS: Diphenoxylate/Atropine 1 TAB TABLET PO PRN ×4 (08:32→21:25)
[2016-11-12] MEDS: hydrOXYzine pamoate 25 MG CAPSULE PO PRN ×2 (11:26→17:56)
--- NOTE | 2016-11-12 12:55 | Psychiatry Progress Note ---
Date of Encounter: 11/12/16 Time of Encounter: 12:23 Subjective Interval history: Patient seen and interviewed. Appears dysphoric and tearful. Endorsing hopelessness and helplessness feelings. Restless and nervous. Suicidal ideations have started to subside. Patient is encouraged to attend groups and participate in activities. Tolerating medications fairly well. Slept better on Remeron. Encouraged to work on a safety plan. Review of Systems Psychiatric: Reports: depression, anxiety, hopelessness Objective: Exam Patient orientation: Yes Person, Yes Time, Yes Place Level of alertness: Alert Patient appearance: Disheveled, Thin Behavior: anxious Psychomotor activity: Slowed Eye contact: Maintains Eye Contact Mood description: Depressed, Anxious Affect description: flat, tearful, dysphoric Speech pattern: Normal rate, Normal rhythm, Normal tone Speech volume: Soft/Quiet Thought process: Linear, Goal Oriented Thought content: No Suicidal ideation, No Homicidal ideation, No Overt delusions Perceptual disturbances: No Auditory hallucinations, No Visual hallucinations Judgment: Fair Insight: Partial Results - Vital Signs Vital Signs: Temp Pulse Resp BP 97.6 F 105 16 98/71 11/12/16 09:00 11/12/16 09:00 11/12/16 09:00 11/12/16 09:00 - Labs Labs: Laboratory Results - last 24 hr 11/12/16 07:43 POC Glucose 92 H Assessment and Plan (1) Depression with anxiety Current visit: Yes Status: Acute Plan: Continue hospitalization, Close observation, Suicide Precautions per unit protocol, Encourage participation in unit milieu, Group Therapy, Monitor sleep, Monitor appetite Risks, benefits, side effects, alternatives discussed w/pt: Yes Patient agreeable to treatment: Yes (2) Alcohol dependence Current visit: Yes Status: Acute Plan: Continue hospitalization, Close observation, Suicide Precautions per unit protocol, Encourage participation in unit milieu, Group Therapy, Monitor sleep, Monitor appetite Risks, benefits, side effects, alternatives discussed w/pt: Yes Patient agreeable to treatment: Yes Qualifiers: Substance use status: in withdrawal Complication of substance-induced condition: uncomplicated Qualified Code(s): F10.230 - Alcohol dependence with withdrawal, uncomplicated Consult Discharge Plan - Plan Referrals: [facility] [Outside] - 11/20/16 10:00 am (The above appointment is with Dr. Fam Rubin for primary healthcare in medication management services. ) [facility] (You will see AOD counselor, Ilda Higgins on: . You will see Aldair Alejandre, nurse, for medication and symptom review, on 11/23/2016 at 3:30pm. You will see the new psychiatric prescriber, name not yet provided, on 12/14/2016 at 4:30 PM for ongoing psychiatric assessment and medication management. )
[2016-11-12] MEDS: traZODone 50 MG TABLET PO PRN (21:25)
[2016-11-12] MEDS: Mirtazapine 15 MG TABLET PO SCH (21:25)
[2016-11-13] MEDS: Ibuprofen 800 MG TABLET PO SCH ×4 (02:24→23:57)
[2016-11-13] MEDS: Nicotine 21 MG PATCH.TD24 TD SCH (08:14)
[2016-11-13] MEDS: Folic Acid 1 MG TABLET PO SCH (08:14)
[2016-11-13] MEDS: ADDERALL 10 MG PO SCH ×3 (08:15→21:00)
[2016-11-13] MEDS: Thiamine (B-1) 100 MG TABLET PO SCH (08:16)
[2016-11-13] MEDS: BuPROPion SR (12 HR) 100 MG TABLET PO SCH ×2 (08:17→20:59)
[2016-11-13] MEDS: hydrOXYzine pamoate 25 MG CAPSULE PO PRN ×3 (08:17→21:02)
--- NOTE | 2016-11-13 15:42 | Psychiatry Progress Note ---
Date of Encounter: 11/13/16 Time of Encounter: 15:33 Subjective Interval history: patient seen today and case discussed with staff and chart reviewed . Pt showing minimal improvement , states i am not thinking of suicide. she is still depressed and some guilt and worthlessness , she agrees has Alcohol dependence and as per her in treatment twice since july, it didnot work out. she has h/o abusing opiates in past. states she been on olanzapine for several years and OD on it. sleep is off and on .not resting good. denies si/hi , no auditory or visual hallunications. at present insight improving and judgement limited. will increase remeron to 30 mg hs. Review of Systems Psychiatric: Reports: depression, anxiety, hopelessness Objective: Exam Level of alertness: Alert Patient appearance: Appropriate Behavior: anxious Psychomotor activity: Normal Eye contact: Maintains Eye Contact Mood description: Depressed, Anxious Affect description: congruent with mood Speech pattern: Normal rate Speech volume: Normal Thought process: Intact Thought content: Yes Guilt Judgment: Limited Insight: Partial Results - Vital Signs Vital Signs: Temp Pulse Resp BP 96.8 F L 90 18 94/62 11/13/16 08:53 11/13/16 08:53 11/13/16 08:53 11/13/16 08:53 - Labs Labs: Laboratory Results - last 24 hr 11/13/16 07:19 POC Glucose 79 Assessment and Plan (1) Alcohol dependence Current visit: Yes Status: Acute Plan: Continue hospitalization Risks, benefits, side effects, alternatives discussed w/pt: Yes Patient agreeable to treatment: Yes Qualifiers: Complication of substance-induced condition: uncomplicated (2) Depression with anxiety Current visit: Yes Status: Acute Plan: Continue hospitalization Risks, benefits, side effects, alternatives discussed w/pt: Yes Patient agreeable to treatment: Yes Consult Discharge Plan - Plan Referrals: [facility] [Outside] - 11/20/16 10:00 am (The above appointment is with Dr. Fam Rubin for primary healthcare in medication management services. ) [facility] [Outside] (You will see AOD counselor, Ilda Higgins on: . You will see Aldair Alejandre nurse, for medication and symptom review, on 11/23/2016 at 3:30pm. You will see the new psychiatric prescriber, name not yet provided, on 12/14/2016 at 4:30 PM for ongoing psychiatric assessment and medication management. )
[2016-11-13] MEDS: Mirtazapine 15 MG TABLET PO SCH (20:59)
[2016-11-13] MEDS: traZODone 50 MG TABLET PO PRN (21:18)
[2016-11-14] MEDS: hydrOXYzine pamoate 25 MG CAPSULE PO PRN ×3 (07:02→21:54)
[2016-11-14] MEDS: Nicotine 21 MG PATCH.TD24 TD SCH (08:51)
[2016-11-14] MEDS: Thiamine (B-1) 100 MG TABLET PO SCH (08:51)
[2016-11-14] MEDS: Folic Acid 1 MG TABLET PO SCH (08:51)
[2016-11-14] MEDS: Ibuprofen 800 MG TABLET PO SCH ×2 (08:52→16:16)
[2016-11-14] MEDS: BuPROPion SR (12 HR) 100 MG TABLET PO SCH ×2 (08:52→20:18)
[2016-11-14] MEDS: ADDERALL 10 MG PO SCH ×3 (08:58→20:19)
[2016-11-14] MEDS: Mirtazapine 15 MG TABLET PO SCH (20:17)
[2016-11-15] MEDS: Ibuprofen 800 MG TABLET PO SCH ×2 (01:15→08:28)
[2016-11-15] MEDS: hydrOXYzine pamoate 25 MG CAPSULE PO PRN ×2 (08:27→11:44)
[2016-11-15] MEDS: Folic Acid 1 MG TABLET PO SCH (08:27)
[2016-11-15] MEDS: BuPROPion SR (12 HR) 100 MG TABLET PO SCH (08:28)
[2016-11-15] MEDS: Nicotine 21 MG PATCH.TD24 TD SCH (08:30)
[2016-11-15] MEDS: Thiamine (B-1) 100 MG TABLET PO SCH (08:30)
[2016-11-15] MEDS: ADDERALL 10 MG PO SCH (08:39)
--- NOTE | 2016-11-15 09:47 | Psychiatry Progress Note ---
Date of Encounter: 11/14/16 Time of Encounter: 09:00 Subjective Interval history: Patient seen today , states doing better, moods better and sleep is ok, concerned about family as they donot understand mental illness and is going to live with mother upon discharge. she is at present showing improvement in depression , less anxiety , no cravings and denies any suicidal ideation and denies side effects. Review of Systems Psychiatric: Reports: anxiety Objective: Exam Patient orientation: Yes Time, Yes Place Level of alertness: Alert Patient appearance: Appropriate Behavior: cooperative, anxious Psychomotor activity: Normal Eye contact: Maintains Eye Contact Mood description: Anxious Affect description: congruent with mood Speech pattern: Normal rate Speech volume: Normal Thought process: Intact Thought content: Yes Intact Judgment: Fair Insight: Full Results - Vital Signs Vital Signs: Temp Pulse Resp BP 97.8 F 99 16 94/67 11/14/16 21:00 11/14/16 21:00 11/14/16 21:00 11/14/16 21:00 - Labs Labs: Laboratory Results - last 24 hr 11/15/16 08:24 POC Glucose 90 H Assessment and Plan (1) Alcohol dependence Current visit: Yes Status: Acute Risks, benefits, side effects, alternatives discussed w/pt: Yes Patient agreeable to treatment: Yes Qualifiers: Complication of substance-induced condition: uncomplicated (2) Depression with anxiety Current visit: Yes Status: Acute Risks, benefits, side effects, alternatives discussed w/pt: Yes Patient agreeable to treatment: Yes Consult Discharge Plan - Plan Referrals: [facility] [Outside] - 11/20/16 10:00 am (The above appointment is with Dr. Fam Rubin for primary healthcare in medication management services. ) [facility]/16 1:30 pm (The above appointment is with Artie, data storage specialist, to update and reactivate your case. You will be able to start IOP on 11/16/2016. After your case is re- activated, you will be eligible for transportation to and from appointments.) [facility] [place] (You will see Aldair Alejandre nurse, for medication and symptom review, on 11/23/2016 at 3:30pm. You will see the new psychiatric prescriber, name not yet provided, on 12/14/2016 at 4:30 PM for ongoing psychiatric assessment and medication management. )
--- NOTE | 2016-11-15 09:53 | Psychiatry Progress Note ---
Date of Encounter: 11/15/16 Time of Encounter: 09:35 Subjective Interval history: Patient seen today , states doing well anxious about family meeting today. she is going to be discharged today she has good insight in her illness and substance abuse and has short and assisted goals. she at present has some anxiety but feels medications working well now, denies side effects. pt also prescribed Naltrexone 50 mg and educated patient about it , no pain pills with it and she understood and agreed to plan. Review of Systems Psychiatric: Reports: anxiety Objective: Exam Patient orientation: Yes Time, Yes Place Level of alertness: Alert Patient appearance: Appropriate Behavior: cooperative, anxious Psychomotor activity: Normal Eye contact: Maintains Eye Contact Mood description: Anxious Affect description: congruent with mood Speech pattern: Normal rate Speech volume: Normal Thought process: Intact Thought content: Yes Intact Judgment: Good Insight: Full Results - Vital Signs Vital Signs: Temp Pulse Resp BP 97.8 F 99 16 94/67 11/14/16 21:00 11/14/16 21:00 11/14/16 21:00 11/14/16 21:00 - Labs Labs: Laboratory Results - last 24 hr 11/15/16 08:24 POC Glucose 90 H Assessment and Plan (1) Alcohol dependence Current visit: Yes Status: Acute Risks, benefits, side effects, alternatives discussed w/pt: Yes Patient agreeable to treatment: Yes Qualifiers: Complication of substance-induced condition: uncomplicated (2) Depression with anxiety Current visit: Yes Status: Acute Risks, benefits, side effects, alternatives discussed w/pt: Yes Patient agreeable to treatment: Yes Consult Discharge Plan - Plan Referrals: [facility] [Outside] - 11/20/16 10:00 am (The above appointment is with Dr. Fam Rubin for primary healthcare in medication management services. ) [facility] 1:30 pm (The above appointment is with Artie, creative services specialist, to update and reactivate your case. You will be able to start IOP on 11/16/2016. After your case is re- activated, you will be eligible for transportation to and from appointments.) Rick Dick[facility] [place]] (You will see Aldair Alejandre, nurse, for medication and symptom review, on 11/23/2016 at 3:30pm. You will see the new psychiatric prescriber, name not yet provided, on 12/14/2016 at 4:30 PM for ongoing psychiatric assessment and medication management. )
[2016-11-15 10:09] VITALS: BP 102/71
--- NOTE | 2016-11-15 11:52 | Discharge Summary ---
Date of Encounter: 11/16/16 Time of Encounter: 09:30 Diagnosis - Discharge Diagnosis (1) Alcohol dependence Priority: Secondary Status: Chronic Qualifiers: Substance use status: in withdrawal Complication of substance-induced condition: uncomplicated Qualified Code(s): F10.230 - Alcohol dependence with withdrawal, uncomplicated (2) Depression with anxiety Priority: Primary Status: Resolved Medications - Discharge Medications RX: Cyanocobalamin (B-12) [Vitamin B12] 1 ml IJ QMONTH 12/20/14 [History] RX: Sucralfate [Carafate] 1 gm PO QIDAC 12/20/14 [History] RX: Promethazine [Phenergan] 25 mg PO Q8HR PRN #90 tablet 12/21/14 [Rx] RX: Simethicone [Gas-X] 80 mg PO TID PRN 02/04/15 [History] RX: Diphenoxylate/Atropine [Lomotil 2.5 mg/0.025 mg] 1 each PO QID PRN 07/28/15 [History] RX: Esomeprazole Magnesium [Nexium] 40 mg PO BID #60 capsule. 02/29/16 [Rx] RX: Potassium Chloride [Klor-Con M15] 15 meq PO DAILY 05/02/16 [History] RX: Lipase/Protease/Amylase [Virgilio Ramos 36,000 Units Capsule] 3 cap PO TIDWM 10/03 [History] RX: Albuterol Sulfate [Proair Hfa] 2 puff IH Q6H PRN 10/17/16 [History] RX: Dextroamphetamine/Amphetamine [Adderall 10 mg Tablet] 10 mg PO TID 10/17/16 [History] RX: Ergocalciferol (VITAMIN D2) [Vitamin D2] 50,000 unit PO TU 10/17/16 [History ] RX: Lactose-Reduced Food [Ensure Plus] 1 bottle PO TID #90 can 10/18/16 [Rx] RX: Vilazodone HCl [Viibryd] 20 mg PO DAILY #30 tablet 10/18/16 [Rx] RX: Calcium Carbonate [Tums] 1,000 mg PO QID #30 tab.chew 10/27/16 [Rx] RX: Folic Acid 1 mg PO DAILY tablet 10/27/16 [Rx] RX: Pantoprazole Sodium [Protonix] 40 mg PO BID #60 tablet. 10/27/16 [Rx] RX: Albuterol Sulfate [Albuterol Inhaler] 2 puff IH QID #1 inhaler 10/28/16 [Rx] RX: Benzonatate [Tessalon] 200 mg PO TID PRN #20 capsule 10/28/16 [Rx] Ibuprofen [Motrin] 800 mg PO Q8HR #20 tablet 11/09/16 [Rx] RX: Ferrous Sulfate 325 mg PO DAILY #20 tablet 11/09/16 [Rx] RX: Thiamine (B-1) [Vitamin B-1] 100 mg PO DAILY tab 11/09/16 [Rx] Allergies cephalexin Allergy (Verified 10/10/16 17:08) Rash clindamycin Allergy (Verified 10/10/16 17:08) Rash nalbuphine [From Nubain] Adverse Reaction (Verified 10/10/16 17:08) "didn't like the way it made me feel" Provider Date of admission: 11/09/16 21:36 Primary care physician: PCP NO Assessment and Plan - Follow up Plan Follow up with: [facility] [Outside] - 11/20/16 10:00 am (The above appointment is with Dr. Fam Rubin for primary healthcare in medication management services. ) [facility] - 11/15/16 1:30 pm (The above appointment is with Artie, supplier specialist, to update and reactivate your case. You will be able to start IOP on 11/16/2016. After your case is re- activated, you will be eligible for transportation to and from appointments.) [facility] (You will see Aldair Alejandre, nurse, for medication and symptom review, on 11/23/2016 at 3:30pm. You will see the new psychiatric prescriber, name not yet provided, on 12/14/2016 at 4:30 PM for ongoing psychiatric assessment and medication management. ) Disposition: Home, Self-Care Hospital Course Hospital course: Ms. Abdi is a 41 year old female who was admitted after OD on olanzapine and other meds , she has been using crack , cocain and alcohol. since admission she has shown improvement in her depression , anxiety and insight in her substance use. she has been compliant with unit milieu and has short and residential plans. today had family meeting and will live with her mother for now and attend out patient CD programme. she denies side effects and agreed to be compliant with treatment plan. progress note done also today. Patient not danger to self/others at present. - Time Spent with Patient Total time spent providing and/or coordinating discharge services: Quality - Multiple Antipsychotics Patient discharged on 2 or more antipsychotic medications: No Procedures - Procedures Procedures: Medication Management, Crisis Stabilization, Supportive Therapy, Group Therapy, Psychoeducational Therapy Mental Status Exam - Mental Status Exam Patient orientation: Yes Time, Yes Place Level of alertness: Alert Patient appearance: Appropriate Behavior: anxious Psychomotor activity: Normal Eye contact: Maintains Eye Contact Mood description: Anxious Affect description: congruent with mood Speech pattern: Normal rate Speech Volume: Normal Thought process: Intact Thought Content: Yes Intact Judgment: Good Insight: Full
== END 2016-11-15 13:00 | disposition home or self-care (01) | DRG 881 ==
LOC: 1ANU 21:36 → SUATTDRO 21:36
PROVIDERS: ADMIT Psychiatry & Neurology Psychiatry; ATTEND Psychiatry & Neurology Psychiatry

== ENCOUNTER 2017-12-18 19:31 | Inpatient (IN) ==
[2017-12-18 21:30] LABS: Basophils # 0.1 K/mcL (0.0-0.2); Basophils % 0.6 %; Eosinophils # 0.3 K/mcL (0.0-0.6); Eosinophils % 4.3 %; Hematocrit 37.6 % (35.3-44.9); Hemoglobin 13.3 g/dL (11.5-15.4); Lymphocytes # 3.4 K/mcL (0.6-4.6); Lymphocytes % 42.2 %; Mean Corpuscular HGB Conc 35.4 g/dL (31.6-35.5); Mean Corpuscular Volume 96.2 fL (83.0-100.0); Mean Platelet Volume 9.4 fL (9.4-12.4); Monocytes # 0.7 K/mcL (0.0-1.3); Neutrophils # 3.4 K/mcL (1.6-8.9); Nucleated Red Blood Cells 0.3 /100 WBC (0); Platelet Count 322 K/mcL (140-400); Red Blood Count 3.91 M/mcL (3.82-4.97); Red Cell Distribution Width 14.6 % (11.5-14.5); Segmented Neutrophils % 42.9 %
[2017-12-18] MEDS ORDERED: 0.9 % Sodium Chloride 500 ML IVC ONE (21:51)
[2017-12-18] MEDS ORDERED: 0.9 % Sodium Chloride 1,000 ML IVC ONE (21:57)
--- NOTE | 2017-12-18 22:01 | Emergency Department Note ---
Disposition Clinical Impression: Malnutrition Qualifiers: Malnutrition type: protein-calorie malnutrition Protein-calorie malnutrition severity: unspecified severity Qualified Code(s): E46 - Unspecified protein- calorie malnutrition Abdominal pain Qualifiers: Abdominal location: generalized Qualified Code(s): R10.84 - Generalized abdominal pain Disposition: Admitted As Inpatient Condition: Good Referrals: Fam Rubin DO [Primary Care Provider] - Forms: ED Satisfaction Letter, Work/School Release Abdominal Pain HPI - General Chief Complaint: ED Abdominal Pain Stated Complaint: "Abd Pain/Vomiting/Weakness" Time Seen by Provider: 12/18/17 21:44 Source: patient Mode of arrival: private vehicle Limitations: no limitations Nursing Notes Reviewed: Yes Vital Signs Reviewed: Yes - History of Present Illness HPI Narrative: 42-year-old female history of prior gastric bypass surgery, also gastroenterology for failure to thrive who presents to the ER with a complaint of abdominal pain, vomiting, weakness. Reports has had ongoing issue since September. I spoke with her circus roustabout prior to her arrival. She was supposed to be a direct admission tomorrow for TPN however she reports continued symptoms which prompted her to come today. Reports she feels nauseous with vomiting when she tries to eat something. She has had pain which is a little worse than usual. She follows with the wound clinic for her lower extremity lymphedema. She was just treated roughly 2 months ago for an ulceration at her bypass anastomotic site. Pt Subjective Complaint: abdominal pain, other (Weakness) Onset (ago): week(s) Consistency: constant Location: diffuse Pain Scale: 8 Radiation: none Migration to: no migration Improves with: nothing Worsens with: nothing Context: history of similar episodes Associated symptoms: Reports: nausea, vomiting. Denies: diarrhea, fever, dysuria, hematuria Treatments prior to arrival: none - Related Data Home Medications Medication Instructions Recorded Confirmed Cyanocobalamin (B-12) [Vitamin B12] 1,000 mcg IM QMONTH 12/18/17 Dextroamphetamine/Amphetamine 10 mg PO TID 12/18/17 [Adderall 10 mg Tablet] Ergocalciferol (VITAMIN D2) 50,000 unit PO Q14D 12/18/17 [Vitamin D2] Furosemide [Lasix] 20 mg PO BID 12/18/17 Lipase/Protease/Amylase [Creon Dr 12/18/17 36,000 Units Capsule] Naltrexone Microspheres [Vivitrol] 380 mg IM 12/18/17 12/18/17 OLANZapine [Zyprexa] 20 mg PO DAILY 12/18/17 Ondansetron HCl [Zofran] 4 mg PO Q8HR PRN 12/18/17 Spironolactone [Aldactone] 50 mg PO BID 12/18/17 Sucralfate [Carafate] 1 gm PO BID 12/18/17 Vilazodone HCl [Viibryd] 40 mg PO DAILY 12/18/17 Allergies Allergy/AdvReac Type Severity Reaction Status Date / Time cephalexin Allergy Rash Verified 07/18/17 15:36 clindamycin Allergy Rash Verified 07/18/17 15:36 nalbuphine [From Nubain] AdvReac "didn't Verified 07/18/17 15:36 like the way it made me feel" All systems ED: reviewed and negative except as stated. Constitutional: Denies: fever Gastrointestinal: Reports: abdominal pain, nausea. 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: Reports: bilateral tubal ligation Psychiatric history: Reports: anxiety, bipolar, depression, prior suicide attempt - Social History Smoking status: Current every day smoker Alcohol use: Reports: none Drug use: Reports: none Physical Exam - General Limitations: no limitations General appearance: alert, cachectic - Head Head exam: atraumatic, normocephalic - Eye Eye exam: Present: normal appearance - ENT ENT exam: normal exam - Neck Neck exam: Present: normal inspection - Chest Chest inspection: Present: normal inspection, symmetric chest wall rise - Respiratory Respiratory exam: Present: normal lung sounds bilaterally - Cardiovascular Cardiovascular exam: Present: normal rhythm, tachycardia, normal heart sounds - Abdominal Exam Abdominal exam: Present: soft, tenderness (Moderate diffuse tenderness). Absent : distention, guarding, rigidity - Extremities Exam Extremities exam: Present: normal inspection, full ROM - Expanded Upper Extremity Exam Shoulder exam: Present: normal inspection, full ROM Arm exam: Present: normal inspection, full ROM Elbow exam: Present: normal inspection, full ROM Forearm/Wrist exam: Present: normal inspection, full ROM Hand exam: Present: normal inspection, full ROM - Expanded Lower Extremity Exam Hip/Pelvis exam: Present: normal inspection, full ROM Upper leg exam: Present: normal inspection, full ROM Knee exam: Present: normal inspection, full ROM Lower leg exam: Present: normal inspection, full ROM Ankle exam: Present: normal inspection, full ROM Foot/toe exam: Present: normal inspection, full ROM - Skin Skin exam: Present: warm, dry Course Course Narrative: Patient seen and examined. Cachectic in appearance. Diffuse abdominal pain. Plan for CT imaging, labs, IV fluids, admission. - Consultations Consultation #1: I spoke with the patient's circus roustabout prior to the patient arriving. He reported that the patient was supposed to be an admission tomorrow for TPN for malnutrition. States she was recently treated for an ulceration at her anastomotic site and if she is having pain and would likely need a CT scan. Request admission to the hospitalist service with gastroenterology consultation. Vital Signs Temperature 98.3 F 12/18/17 19:35 Pulse Rate 102 12/18/17 19:35 Respiratory Rate 18 12/18/17 19:35 Blood Pressure 102/70 12/18/17 19:35 O2 Sat by Pulse Oximetry 98 12/18/17 19:35 Temperature 98.3 F 12/18/17 19:35 Pulse Rate 102 12/18/17 19:35 Respiratory Rate 18 12/18/17 19:35 Blood Pressure 102/70 12/18/17 19:35 O2 Sat by Pulse Oximetry 98 12/18/17 19:35 Oxygen Delivery Oxygen Delivery Room Air Abdominal Pain - Lab Data Lab results reviewed: Yes I reviewed the patient's lab results. Result diagrams: 12/18/17 21:18 12/18/17 21:18 Lab Results 12/18/17 12/18/17 12/18/17 Range/Units 21:18 21:18 21:57 WBC 8.0 (4.3-11.1) K/mcL RBC 3.91 (3.82-4.97) M/mcL Hgb 13.3 (11.5-15.4) g/dL Hct 37.6 (35.3-44.9) % MCV 96.2 (83.0-100.0) fL MCH 34.0 H (28.0-33.3) pg MCHC 35.4 (31.6-35.5) g/dL RDW 14.6 H (11.5-14.5) % Plt Count 322 (140-400) K/mcL MPV 9.4 (9.4-12.4) fL Immature Gran % 1.0 (0-4) % Seg Neutrophils % 42.9 % Lymphocytes % 42.2 % Monocytes % 9.0 % Eosinophils % 4.3 % Basophils % 0.6 % Neutrophils # 3.4 (1.6-8.9) K/mcL Lymphocytes # 3.4 (0.6-4.6) K/mcL Monocytes # 0.7 (0.0-1.3) K/mcL Eosinophils # 0.3 (0.0-0.6) K/mcL Basophils # 0.1 (0.0-0.2) K/mcL Nucleated RBCs/100 WBC 0.3 H (0) /100 WBC Sodium 132 L (136-145) mEq/L Potassium 4.4 (3.5-5.1) mEq/L Chloride 107 (98-107) mEq/L Carbon Dioxide 13 L (23-29) mEq/L BUN 5 L (6-20) mg/dL Creatinine 0.49 L (0.60-1.20) mg/dL Est GFR ( Amer) > 60 (> 60) Est GFR (Non-Af Amer) > 60 (> 60) BUN/Creatinine Ratio 10 (6-26) Glucose 345 H (70-105) mg/dL Calculated Osmolality 285 (280-300) Calcium 7.7 L (8.6-10.3) mg/dL Total Bilirubin 0.8 (0.3-1.0) mg/dL Direct Bilirubin 0.1 (0.0-0.2) mg/dL Indirect Bilirubin 0.7 (0.0-1.2) mg/dL AST 70 H (13-39) Units/L ALT 45 (7-52) Units/L Alkaline Phosphatase 119 H (34-104) Units/L Serum Total Protein 4.7 L (6.4-8.9) g/dL Albumin 2.4 L (3.5-5.7) g/dL Globulin 2.3 L (2.4-3.5) g/dL Albumin/Globulin Ratio 1.0 L (1.1-2.2) Amylase 14 L (29-103) Units/L Lipase 9 L (11-82) Units/L Urine Color Yellow (Yellow) Urine Clarity Clear (Clear) Urine pH 6.5 (5.0-8.0) pH Units Ur Specific [place] 1.018 (1.010-1.025) Urine Protein Negative (Neg-Trace) mg/dL Urine Glucose (UA) >=1000 H (Normal) mg/dL Urine Ketones Negative (Negative) mg/dL Urine Blood Negative (Negative) Urine Nitrite Negative (Negative) Urine Bilirubin Negative (Negative) Urine Urobilinogen Normal (Normal) mg/dL Ur Leukocyte Esterase Negative (Negative) Ur Culture Indicated? NO (NO) - Radiology Data Radiology results reviewed: Yes I reviewed the patient's radiology results. Abdomen/Pelvis CT 12/18/17 21:45 IMPRESSION: No acute abdominopelvic abnormality identified. Hepatic steatosis. D/ / Hawk Mtz MD / Hawk Mtz MD Interpreting Provider: Hawk Mtz MD Attestation Statement - Attestation Attestation: I examined this patient and my medical decision-making was reviewed with the Resident Physician. I agree with the documented findings, disposition and treatment plan as described except to the extent set forth below. Findings consistent with nonspecific abdominal pain. There was ulceration on previous anastomotic site. Patient was sent in for GI for TPN therapy due to protein malnourishment. The patient be admitted for further management.
[2017-12-18 22:02] LABS: Alanine Aminotransferase 45 Units/L (7-52); Albumin 2.4 g/dL (3.5-5.7); Alkaline Phosphatase 119 Units/L (34-104); Amylase 14 Units/L (29-103); Aspartate Amino Transferase 70 Units/L (13-39); BUN/Creatinine Ratio 10 (6-26); Bilirubin,Direct 0.1 mg/dL (0.0-0.2); Bilirubin,Indirect 0.7 mg/dL (0.0-1.2); Bilirubin,Total 0.8 mg/dL (0.3-1.0); Blood Urea Nitrogen 5 mg/dL (6-20); Calcium 7.7 mg/dL (8.6-10.3); Carbon Dioxide 13 mEq/L (23-29); Chloride 107 mEq/L (98-107); Globulin 2.3 g/dL (2.4-3.5); Glucose 345 mg/dL (70-105); Lipase 9 Units/L (11-82); Osmolality,Calculated 285 (280-300); Potassium 4.4 mEq/L (3.5-5.1); Sodium 132 mEq/L (136-145); Total Protein 4.7 g/dL (6.4-8.9); eGFR For Non-African Americans > 60 (> 60)
[2017-12-18 22:14] LABS: Bilirubin,Urine Negative (Negative); Blood,Urine Negative (Negative); Clarity,Urine Clear (Clear); Color,Urine Yellow (Yellow); Glucose,Urine (UA) >=1000 mg/dL (Normal); Ketones,Urine Negative (Negative); Leukocyte Esterase,Urine Negative (Negative); Nitrite,Urine Negative (Negative); PH,Urine 6.5 pH Units (5.0-8.0); Protein,Urine Negative (Neg-Trace); Specific Gravity,Urine 1.018 (1.010-1.025); Urobilinogen,Urine Normal (Normal)
[2017-12-18] MEDS ORDERED: Ondansetron 4 MG/2 ML VIAL IVP ONE (22:22)
[2017-12-18] MEDS ORDERED: *HR* FentaNYL (PF) 100 MCG/2 ML VIAL IVP ONE (22:46)
[2017-12-19] MEDS ORDERED: Ondansetron ODT 4 MG TAB.RAPDIS SL PRN (07:36)
[2017-12-19 07:45] LABS: Hematocrit 31.2 % (35.3-44.9); Mean Corpuscular Hemoglobin 32.3 pg (28.0-33.3); Mean Corpuscular Volume 95.1 fL (83.0-100.0); Platelet Count 321 K/mcL (140-400); Red Blood Count 3.28 M/mcL (3.82-4.97); Red Cell Distribution Width 14.7 % (11.5-14.5)
[2017-12-19 08:11] LABS: BUN/Creatinine Ratio 11 (6-26); Blood Urea Nitrogen 4 mg/dL (6-20); Calcium 7.4 mg/dL (8.6-10.3); Carbon Dioxide 21 mEq/L (23-29); Chloride 112 mEq/L (98-107); Glucose 94 mg/dL (70-105); Osmolality,Calculated 283 (280-300); Sodium 138 mEq/L (136-145); eGFR For Non-African Americans > 60 (> 60)
[2017-12-19] MEDS: 0.9 % Sodium Chloride 1,000 ML IVC SCH ×2 (08:17→22:24)
[2017-12-19] MEDS ORDERED: Naloxone 0.4 MG/ML INJ IVP PRN (08:53)
[2017-12-19] MEDS ORDERED: Acetaminophen 325 MG TABLET PO PRN (08:58)
[2017-12-19 09:10] LABS: Hemoglobin 10.6 g/dL (11.5-15.4)
[2017-12-19 09:43] LABS: Magnesium 1.9 mg/dL (1.6-2.6); Phosphorous 2.9 mg/dL (2.7-4.5); Triglycerides 113 mg/dL (< 150)
[2017-12-19] MEDS: *HR* OxyCODONE Immed Rel 5 MG TABLET PO PRN ×2 (10:21→16:15)
--- NOTE | 2017-12-19 10:56 | Internal Med History&Physical ---
Date of Encounter: 12/19/17 Time of Encounter: 08:30 Internal Medicine - H&P: HPI Chief complaint: Abdominal pain Admitted From: Emergency Dept Plans for Post Hospital Care: Home History of present illness: Ms. Abdi is a 42 year old female with extensive h/o- abdominal surgeries including gastric bypass and partial bowel resection, alcoholic liver disease and chronic pancreatitis, who presents with complaints of worsening nausea, vomiting and abdominal pain. Patient is chronically sick and does follow with GI as outpatient for liver disease/lesions. She reports that she recently underwent EGD, that showed an ulcer at the anastomotic site and she was being planned to be started on TPN. She reports worsening epigastric and upper abdominal pain associated with nausea and nonbloody vomiting for the last 2-3 months, not relieved with oral medications. She rates her pain as 8-10 over 10, dull aching pain, radiates across upper abdomen. No hematochezia, hematemesis, melena. She has associated weight loss, loose, watery, nonbloody thfncufs-5-5 times a day. No fever/chills. Past Med Surg Social Fam HX - Past Medical History Source: patient, old records reviewed Medical history: cirrhosis, liver disease, pulmonary embolus, other Additional medical history: gastric bypass, stomach ulver, hernia, lymphodema, anemia, WPW syndrome, hx opiate and alcohol use Psychiatric history: anxiety, bipolar, depression, prior suicide attempt - Past Surgical History Surgical History: appendectomy, cholecystectomy, herniorrhaphy (Incisional hernia repair), hysterectomy, other (Exploratory laparotomy, small bowel resection), bariatric surgery Additional surgical history: cardiac ablation, tubal. gastric bypass 1999. bowel obstruction repair x 3. total hysterectomy. 5-6 hernia repairs. 1 constricted hernia. - Social History Smoking Status: Current every day smoker Packs per day: 0.5 Smokeless Tobacco Status: No Alcohol use: none Drug use: none Occupational status: disabled Current living situation: Home - Independent Activity Level: Independent ambulation Recent Out of Country Travel Within the Last 8 Weeks: No Exposure or Possible Exposure to Illness During Travel: No - Family History Father Adopted: No Living Status: Still Living Hx Family Cardiac Disorders: No Hx Family Respiratory Disorders: No Hx Family Cancer: No Hx Family GI Disorders: No Hx Family Endocrine Disorder: No Hx Family Neuromuscular Disorders: No Hx Family Neurologic Disorders: No Hx Family HEENT Disorders: No Hx Family Autoimmune Disorders: No Grandfather Living Status: Hx Family Cardiac Disorders: Yes (PR) Maternal Grandmother Living Status: Still Living Hx Family Cancer: Yes (Lung) Sister Living Status: Still Living Hx Family Cancer: Yes (Ovarian) Mother Adopted: No Living Status: Still Living Hx Family Cardiac Disorders: Yes Hx Family Respiratory Disorders: No Hx Family Cancer: No Hx Family GI Disorders: No Hx Family Endocrine Disorder: No Hx Family Neuromuscular Disorders: No Hx Family Neurologic Disorders: No Hx Family HEENT Disorders: No Hx Family Autoimmune Disorders: No Internal Medicine - H&P: Meds Cyanocobalamin (B-12) [Vitamin B12] 1,000 mcg IM QMONTH 12/18/17 [History] Dextroamphetamine/Amphetamine [Adderall 10 mg Tablet] 10 mg PO TID 12/18/17 [ History] Ergocalciferol (VITAMIN D2) [Vitamin D2] 50,000 unit PO Q14D 12/18/17 [History] Furosemide [Lasix] 20 mg PO DAILY 12/18/17 [History] Lipase/Protease/Amylase [Creon Dr 36,000 Units Capsule] 36,000 units PO TID [History] OLANZapine [Zyprexa] 20 mg PO DAILY 12/18/17 [History] Ondansetron HCl [Zofran] 4 mg PO Q8HR PRN 12/18/17 [History] Spironolactone [Aldactone] 50 mg PO DAILY 12/18/17 [History] Sucralfate [Carafate] 1 gm PO BID 12/18/17 [History] Vilazodone HCl [Viibryd] 40 mg PO DAILY 12/18/17 [History] 3 Allergy/AdvReac Type Severity Reaction Status Date / Time cephalexin Allergy Rash Verified 07/18/17 15:36 clindamycin Allergy Rash Verified 07/18/17 15:36 nalbuphine [From Nubain] AdvReac "didn't Verified 07/18/17 15:36 like the way it made me feel" All Systems PM: A 10-system review of systems was performed and is negative for pertinent findings except as documented above in the HPI. - Constitutional Constitutional: lethargy, weakness, no chills, no fever(s), no night sweats - EENT Eyes: no change in vision, no discharge, no pain, no photophobia Ears: no ear discharge, no ear pain, no tinnitus Nose, mouth and throat: no dysphagia, no nasal discharge, no neck pain, no sore throat - Cardiovascular Cardiovascular ROS IM: no chest pain, no diaphoresis, no dyspnea, no lightheadedness, no palpitations, no syncope - Respiratory Respiratory: no cough, no dyspnea, no wheezing, no excessive phlegm production - Gastrointestinal Gastrointestinal: abdominal pain, dyspepsia, heartburn, loose stools, nausea, vomiting - Genitourinary Genitourinary: no change in urinary stream, no dysuria, no flank pain, no hematuria - Musculoskeletal Musculoskeletal ROS IM: no numbness, no tingling - Integumentary Integumentary IM: no rash, no unusual bruising - Neurological Neurological ROS: no confusion, no convulsions, no focal weakness, no numbness, no tingling, no tremor(s) - Hematologic/Lymphatic Hematologic/Lymphatic: no easy bruising - Constitutional Vitals: Temp Pulse Resp BP Pulse Ox 98.7 F 92 14 94/61 97 12/19/17 06:29 12/19/17 06:29 12/19/17 06:29 12/19/17 06:29 12/19/17 06:29 General appearance: Present: cachectic, mild distress, A&O X 3, answers questions appropriately Exam: . - Head Head exam: Present: atraumatic, normocephalic - Eye Eye exam: Present: PERRL, conjuntiva pink, sclera anicteric Pupils: Present: PERRL - Neck Neck exam general surgery: Present: supple, trachea midline. Absent: lymphadenopathy - Respiratory Respiratory exam: Present: CTAB. Absent: accessory muscle use, rales, rhonchi, wheezes - Cardiovascular Cardiovascular exam: Present: RRR, +S1, +S2. Absent: diastolic murmur, gallop, rubs, systolic murmur - GI/Abdominal GI/Abdominal exam: Present: normal bowel sounds, soft (tenderness to light palpation in upper abdomen, no guarding/rigidity), no peritoneal signs. Absent : distended, tenderness - Extremities Exam Extremities exam: Present: full ROM, pedal edema (B/L tense chronic nonpitting edema, slightly tender, no open wounds), warm, radial pulses palpable and symmetrical. Absent: calf tenderness, cyanotic - Neurological Exam Neurological exam: Present: CN II-XII intact, oriented X3, no focal deficits. Absent: pronater drift, facial droop, speech deficit - Skin Skin exam: Present: dry, intact Internal Med - H&P Results - Labs CBC & Chem 7: 12/19/17 07:01 12/19/17 07:01 Labs: Short CBC 12/19/17 Range/Units 07:01 WBC 5.7 (4.3-11.1) K/mcL Hgb 10.6 L D (11.5-15.4) g/dL Hct 31.2 L (35.3-44.9) % Plt Count 321 (140-400) K/mcL BMP 12/19/17 07:01 Sodium 138 Potassium 4.0 Chloride 112 H Carbon Dioxide 21 L BUN 4 L Creatinine 0.37 L Glucose 94 Calcium 7.4 L - Assessment and plan (1) Abdominal pain Current Visit: Yes Status: Acute Assessment and plan: Chronic epigastric and upper abdominal pain, worsening, could be related to gastric ulcer and multiple previous abdominal surgeries. CT abdomen/pelvis in the emergency room showed no acute abnormality. Continue supportive care, pain control with when necessary oxycodone and IV fentanyl, when necessary antiemetics. IV PPI. Keep nothing by mouth except meds for now. Case discussed with gastroenterology, recommend PICC line placement for initiation of TPN. Full consult to follow. Will consult nutrition. Qualifiers: Abdominal location: upper abdomen, unspecified Qualified Code(s): R10.10 - Upper abdominal pain, unspecified (2) Malnutrition Current Visit: Yes Status: Chronic Assessment and plan: Due to multiple abdominal surgeries and gastric ulcer, has failure to thrive; plan for TPN; Nutrition consult; Qualifiers: Malnutrition type: protein-calorie malnutrition Protein-calorie malnutrition severity: unspecified severity Qualified Code(s): E46 - Unspecified protein-calorie malnutrition (3) Lymphedema Current Visit: Yes Status: Chronic (4) Alcoholic cirrhosis of liver without ascites Current Visit: Yes Status: Chronic Assessment and plan: hold diuretics for now; continue supportive care; (5) Bipolar disorder Current Visit: Yes Status: Chronic Qualifiers: Active/Remission status: remission status unspecified Qualified Code(s): F31.9 - Bipolar disorder, unspecified (6) Chronic pancreatitis Current Visit: Yes Status: Chronic Assessment and plan: hold pancreatic enzymes for now, pending GI consult and initiation of TPN; Qualifiers: Pancreatitis type: alcohol induced Qualified Code(s): K86.0 - Alcohol- induced chronic pancreatitis (7) Tobacco abuse Current Visit: Yes Status: Chronic Assessment and plan: nicotine TD patch PRN; (8) Gastric ulcer Current Visit: Yes Status: Chronic Assessment and plan: EGD from September 2017 showed nonbleeding cratered gastric ulcer at the anastomotic site. Continue PPI. Qualifiers: Gastric ulcer chronicity: chronic Gastric ulcer complication status: without hemorrhage or perforation Qualified Code(s): K25.7 - Chronic gastric ulcer without hemorrhage or perforation - Time Spent With Patient Total time spent is greater than 50% in coordination of care (as documented) at patient's floor/unit and/or counseling patient:
[2017-12-19] MEDS: Patient Taking Own Medication 1 EACH PO SCH ×4 (11:18→23:39)
[2017-12-19] MEDS ORDERED: Dextrose Gel 15 GM/37.5 ML TUBE PO PRN ×2 (11:23)
[2017-12-19] MEDS ORDERED: *HR* Dextrose 50 % in Water (Syg) 50 ML SYRINGE IVP PRN (11:23)
[2017-12-19] MEDS ORDERED: D5% in Water 1,000 ML IVC PRN (11:23)
[2017-12-19] MEDS ORDERED: Lidocaine -MPF 1% 5 ML AMPUL INFILT ONE ×2 (11:30→11:33)
[2017-12-19] MEDS: Insulin LISPRO 300 UNITS/3 ML VIAL SQ SCH ×3 (11:40→23:37)
[2017-12-19] MEDS ORDERED: D10% in Water 500 ML IVC PRN (13:15)
--- NOTE | 2017-12-19 13:27 | Gastroenterology Consult Note ---
<LeesOj Champ - Last Filed: 12/19/17 13:24> Date of Encounter: 12/19/17 Time of Encounter: 11:30 - Assessment and plan (1) Malnutrition Current Visit: No Status: Chronic Assessment and plan: Recommend PICC line and start TPN. Recommend consulting Nutrition. Qualifiers: Malnutrition type: protein-calorie malnutrition Protein-calorie malnutrition severity: unspecified severity Qualified Code(s): E46 - Unspecified protein-calorie malnutrition (2) Bloating Current Visit: Yes Status: Acute Assessment and plan: SIBO testing ordered as outpatient for 12/27. (3) Gastric ulcer Current Visit: Yes Status: Chronic Assessment and plan: Last EGD September 2017 showed a non-bleeding gastric ulcer at anastomosis. Plan to repeat EGD today to reevaluate. Keep NPO for scope. Qualifiers: Gastric ulcer chronicity: chronic Gastric ulcer complication status: without hemorrhage or perforation Qualified Code(s): K25.7 - Chronic gastric ulcer without hemorrhage or perforation (4) Hepatic steatosis Current Visit: No Status: Chronic Assessment and plan: CT A/P showed diffuse fatty infiltration of the liver with a small geographic patch of focal fatty sparing in the left hepatic lobe. (5) History of Flynn-en-Y gastric bypass Current Visit: Yes Status: Acute (6) History of alcohol abuse Current Visit: Yes Status: Acute - Time Spent With Patient Total time spent is greater than 50% in coordination of care (as documented) at patient's floor/unit and/or counseling patient: GI History of Present Illness - Data of Consult Patient: known to practice within the last 3 years Consult date: 12/19/17 Requesting Physician: Alex Velasquez MD - Consult Narrative Reason for consult: FTT History of present illness: Ms. Abdi is a 42 year old female with PMHx of bipolar disorder, opiate abuse, alcohol abuse, pancreatitis, gastric bypass who was admitted for failure to thrive. She complains of abdominal pain, vomiting, and weakness. She denies melena, hematochezia, hematemesis. She was to be admitted for PICC line placement for TPN. CT A/P showed diffuse fatty infiltration of the liver with a small geographic patch of focal fatty sparing in the left hepatic lobe. She reports worsening epigastric and upper abdominal pain associated with nausea and nonbloody vomiting for the last 2-3 months, not relieved with oral medications. Procedures: EGD 10/04/2017 Dr. Manley: Non-bleeding gastric ulcer at anastomosis, moderate chronic inflammation. EGD 05/14/2016 Dr. Becker: Plastic water bottle cap in esophagus. EGD 10/2014 superficial ulcer at anastomosis, stomach with pseudo-diverticuli. EGD 11/2012 gastric ulcer, anastomosis ulcer,biopsy negative EGD 08/2012 anastomosis ulcer Colonoscopy 07/2012 colon redundant/tortuous EGD 02/2012 esophagitis at GE junction NSAID: None Anticoagulation: None Past Med Surg Social Fam HX - Past Medical History Medical history: cirrhosis, liver disease, pulmonary embolus, other Additional medical history: gastric bypass, stomach ulver, hernia, lymphodema, anemia, WPW syndrome, hx opiate and alcohol use Psychiatric history: anxiety, bipolar, depression, prior suicide attempt - Past Surgical History Surgical History: appendectomy, cholecystectomy, herniorrhaphy (Incisional hernia repair), hysterectomy, other (Exploratory laparotomy, small bowel resection), bariatric surgery Additional surgical history: cardiac ablation, tubal. gastric bypass 1999. bowel obstruction repair x 3. total hysterectomy. 5-6 hernia repairs. 1 constricted hernia. - Social History Smoking Status: Current every day smoker Packs per day: 0.5 Smokeless Tobacco Status: No Alcohol use: none Drug use: none - Family History Father Adopted: No Living Status: Still Living Hx Family Cardiac Disorders: No Hx Family Respiratory Disorders: No Hx Family Cancer: No Hx Family GI Disorders: No Hx Family Endocrine Disorder: No Hx Family Neuromuscular Disorders: No Hx Family Neurologic Disorders: No Hx Family HEENT Disorders: No Hx Family Autoimmune Disorders: No Grandfather Living Status: Hx Family Cardiac Disorders: Yes (CA) Maternal Grandmother Living Status: Still Living Hx Family Cancer: Yes (Lung) Sister Living Status: Still Living Hx Family Cancer: Yes (Ovarian) Mother Adopted: No Living Status: Still Living Hx Family Cardiac Disorders: Yes Hx Family Respiratory Disorders: No Hx Family Cancer: No Hx Family GI Disorders: No Hx Family Endocrine Disorder: No Hx Family Neuromuscular Disorders: No Hx Family Neurologic Disorders: No Hx Family HEENT Disorders: No Hx Family Autoimmune Disorders: No - Gastrointestinal Gastrointestinal: Present: as per HPI - Constitutional Constitutional: as per HPI - EENT Eyes: as per HPI Ears: Present: as per HPI Nose, mouth and throat: Present: as per HPI - Cardiovascular Cardiovascular ROS: Present: as per HPI - Respiratory Respiratory IM: Present: as per HPI - Genitourinary Genitourinary: Absent: change in color, Urinary frequency - Neurological ROS Neurological GI: Present: as per HPI - Hematologic/Lymphatic Hematologic/Lymphatic pediatric: Present: as per HPI - Musculoskeletal Musculoskeletal ROS GI: Present: as per HPI - Integumentary Integumentary GI: Present: as per HPI - Psychiatric ROS Psychiatric GI: Present: as per HPI - Endocrine Endocrine IM: Present: as per HPI - Constitutional Vitals: Temp Pulse Resp BP Pulse Ox 98.1 F 83 14 100/64 98 12/19/17 11:23 12/19/17 11:23 12/19/17 11:23 12/19/17 11:23 12/19/17 11:23 General appearance: Present: cachectic, cooperative, A&O X 3, no acute distress , answers questions appropriately - Head Head exam: Present: atraumatic, normocephalic - Eye Eye exam: Present: normal appearance, sclera anicteric - ENT ENT exam: Present: mucous membranes dry - Neck Neck exam general surgery: Present: normal inspection, trachea midline - Respiratory Respiratory exam: Present: CTAB. Absent: rales, rhonchi - Cardiovascular Cardiovascular exam: Present: RRR, +S1, +S2 - GI/Abdominal GI/Abdominal exam: Present: soft, tenderness (generalized), no peritoneal signs. Absent: distended, firm, guarding - Rectal Rectal exam: Present: deferred - Extremities Exam Extremities exam: Present: warm - Neurological Exam Neurological exam: Present: no focal deficits - Psychiatric Psychiatric exam: Present: normal affect, normal mood - Skin Skin exam: Present: dry, intact, normal color, warm Results - Labs CBC & Chem 7: 12/19/17 07:01 12/19/17 07:01 Labs: Last Result Calcium 7.4 mg/dL (8.6-10.3) L 12/19/17 07:01 Triglycerides 113 mg/dL (< 150) 12/19/17 07:01 Entire Visit Hgb 10.6 g/dL (11.5-15.4) L D 12/19/17 07:01 Hct 31.2 % (35.3-44.9) L 12/19/17 07:01 Total Bilirubin 0.8 mg/dL (0.3-1.0) 12/18/17 21:18 AST 70 Units/L (13-39) H 12/18/17 21:18 ALT 45 Units/L (7-52) 12/18/17 21:18 Amylase 14 Units/L (29-103) L 12/18/17 21:18 Lipase 9 Units/L (11-82) L 12/18/17 21:18 Consult Discharge Plan - Plan Referrals: Fma Rubin DO [Primary Care Provider] - <Emanuel Manley - Last Filed: 12/19/17 18:13> Date of Encounter: 12/19/17 Time of Encounter: 17:00 - Time Spent With Patient Total time spent is greater than 50% in coordination of care (as documented) at patient's floor/unit and/or counseling patient: GI History of Present Illness - Data of Consult Requesting Physician: Alex Velasquez MD - Consult Narrative History of present illness: Ms. Abdi is a 42 year old female - Constitutional Vitals: Temp Pulse Resp BP Pulse Ox 98.5 F 87 16 100/71 99 12/19/17 16:53 12/19/17 16:53 12/19/17 16:53 12/19/17 16:53 12/19/17 16:53 Results - Labs CBC & Chem 7: 12/19/17 07:01 12/19/17 07:01 Labs: Last Result Calcium 7.4 mg/dL (8.6-10.3) L 12/19/17 07:01 Triglycerides 113 mg/dL (< 150) 12/19/17 07:01 Entire Visit Hgb 10.6 g/dL (11.5-15.4) L D 12/19/17 07:01 Hct 31.2 % (35.3-44.9) L 12/19/17 07:01 Total Bilirubin 0.8 mg/dL (0.3-1.0) 12/18/17 21:18 AST 70 Units/L (13-39) H 12/18/17 21:18 ALT 45 Units/L (7-52) 12/18/17 21:18 Amylase 14 Units/L (29-103) L 12/18/17 21:18 Lipase 9 Units/L (11-82) L 12/18/17 21:18 - Attending Attestation I have personally performed a face to face evaluation on this patient. I have reviewed and agree with the care plan. History and Exam by me shows: Morel seen patient 42-year-old female with a history of gastric bypass and alcoholic liver disease currently in remission, also with a history of large anastomotic ulcer in the stomach admitted because of the abdominal pain and also malnutrition. On examination patient does looks emacited and has abdominal tenderness in the upper abdomen. Assessment: Patient with the large anastomotic ulcer in this patient with underlying gastric bypass. #2 patient with malnutrition. Recommendation: Patient will have a PICC line placed and will be started on TPN. She will have an EGD done to assess her anastomotic ulcer..
[2017-12-19] MEDS: *HR* Heparin 5,000 UNIT/ML VIAL SQ SCH (16:07)
[2017-12-19] MEDS ORDERED: *HR* Propofol 200 MG/20 ML VIAL IVP ONE ×2 (16:32→16:45)
[2017-12-19] MEDS ORDERED: Lidocaine -MPF 2% 2 ML VIAL ONE (16:32)
[2017-12-19] MEDS ORDERED: Clinimix E 5%-15% SOLUTION 2,000 ML with MVI, adult with vitamin K 10 ML IVC SCH (17:00)
--- NOTE | 2017-12-19 17:18 | Anesthesia Evaluation PreOp ---
Date of Encounter: 12/19/17 Time of Encounter: 17:16 - Past History Planned Operation: EGD Cardiac History: Arrhythmia (hx of WPW s/p ablation, EF 60%) Pulmonary History: Smoker, Pack/yr (20) [employer] History: Other (Bipolar d/o, anxiety, depression, prior suicide attempt) Other Medical History: Hepatic (cirrhosis), Other (hx of ETOH abuse) Anesthesia History: No Prior Anesthetic Complications, Past Anesthesia ( appendectomy, cholecystectomy, herniorrhaphy (Incisional hernia repair), hysterectomy, other (Exploratory laparotomy, small bowel resection), bariatric surgery) Alcohol Use: none Drug use: none Medications and Allergies Cyanocobalamin (B-12) [Vitamin B12] 1,000 mcg IM QMONTH 12/18/17 [History] Dextroamphetamine/Amphetamine [Adderall 10 mg Tablet] 10 mg PO TID 12/18/17 [ History] Ergocalciferol (VITAMIN D2) [Vitamin D2] 50,000 unit PO Q14D 12/18/17 [History] Furosemide [Lasix] 20 mg PO DAILY 12/18/17 [History] Lipase/Protease/Amylase [Creon Dr 36,000 Units Capsule] 36,000 units PO TID [History] OLANZapine [Zyprexa] 20 mg PO DAILY 12/18/17 [History] Ondansetron HCl [Zofran] 4 mg PO Q8HR PRN 12/18/17 [History] Spironolactone [Aldactone] 50 mg PO DAILY 12/18/17 [History] Sucralfate [Carafate] 1 gm PO BID 12/18/17 [History] Vilazodone HCl [Viibryd] 40 mg PO DAILY 12/18/17 [History] 3 Allergy/AdvReac Type Severity Reaction Status Date / Time cephalexin Allergy Rash Verified 07/18/17 15:36 clindamycin Allergy Rash Verified 07/18/17 15:36 [id number] [From Nubain] AdvReac "didn't Verified 07/18/17 15:[address] it made me feel" - Meds/Allergy Pre-op Review Medications Reviewed: Yes Allergies Reviewed: Yes Beta Blockers on Current Med List: No Anesthesia Results - Labs 12/19/17 07:01 12/19/17 07:01 - Imaging EKG: report reviewed (SINUS TACHYCARDIA NONSPECIFIC ST & T-WAVE ABNORMALITY ABNORMAL RHYTHM ECG Electronically Signed On 05-29-2017 6:40:44 EST by Da Herrera MD) Anesthesia Exam Vital Signs/O2 Sat, Most Current Temp Pulse Resp BP Pulse Ox 98.5 F 87 16 100/71 99 12/19/17 16:53 12/19/17 16:53 12/19/17 16:53 12/19/17 16:53 12/19/17 16:53 Weight: 51kg NPO (# of Hours): >8 - HEENT Pupil (Motor): Pupils equal, EOMI Mallampati: II Teeth: Poor dentition Oral Opening: Greater than 3 - INDUST[employer]AL [employer] LOC: Oriented [employer]ER Motor: Normal RUE, Normal LUE, Normal RLE, Normal LLE, Normal Face [employer]RIAL [employer]ER Sensory: Normal: RUE, LUE, RLE, LLE, Face - Cardiac Rhythm: Regular - Pulmonary Breath Sounds: bilateral Clear Respiratory Effort: Symmetrical Anesthesia Assess/Plan ASA Score: 3 Modified Dunmore Scale for Level of Consciousness: Cooperative, oriented, and tranquil Anesthetic Plan: General (plan b), MAC Monitoring Plan: Standard Monitors Recovery Plan: PACU
[2017-12-19] MEDS ORDERED: *HR* Promethazine 25 MG/ML VIAL ONE (17:21)
[2017-12-19] MEDS ORDERED: Pantoprazole 40 MG VIAL IVP SCH (18:00)
[2017-12-19 18:13] LABS: Estimated Average Glucose 88 mg/dl; Hemoglobin A1C 4.7 %
--- NOTE | 2017-12-19 18:13 | Anesthesia Evaluation Post Op ---
Date of Encounter: 12/19/17 Time of Encounter: 18:12 - Vital Signs Vital Signs: Vital Signs/O2 Sat, Most Current Temp Pulse Resp BP Pulse Ox 98.5 F 87 16 100/71 99 12/19/17 16:53 12/19/17 16:53 12/19/17 16:53 12/19/17 16:53 12/19/17 16:53 - Lungs Lungs: Clear Ascult./Percussion - Airway Airway: Non-obstructed - Cardiovascular Regular Rate - Mental Status Mental Status: Alert & Oriented, Answers Appropriately - Pain Pain Scale used: Numeric (1 - 10) - Nausea Vomiting Nausea Vomiting: Not Present - Hydration Hydration: NPO - Discharge PostOp Status: Transfer Patient to floor Attestation: I have assessed this patient and find they meet discharge criteria.
[2017-12-19] MEDS: Pantoprazole 40 MG in 0.9 % Sodium Chloride Mini Bag 100 ML IVC SCH ×2 (18:48→23:37)
[2017-12-19] MEDS: *HR* FentaNYL (PF) 100 MCG/2 ML VIAL IVP PRN (22:30)
[2017-12-20] MEDS: *HR* Heparin 5,000 UNIT/ML VIAL SQ SCH ×3 (00:40→18:57)
[2017-12-20] MEDS: Pantoprazole 40 MG in 0.9 % Sodium Chloride Mini Bag 100 ML IVC SCH ×3 (04:24→15:15)
[2017-12-20 05:07] LABS: BUN/Creatinine Ratio 12 (6-26); Blood Urea Nitrogen 5 mg/dL (6-20); Calcium 7.3 mg/dL (8.6-10.3); Carbon Dioxide 17 mEq/L (23-29); Chloride 114 mEq/L (98-107); Glucose 231 mg/dL (70-105); Magnesium 1.6 mg/dL (1.6-2.6); Osmolality,Calculated 287 (280-300); Phosphorous 2.5 mg/dL (2.7-4.5); Potassium 3.7 mEq/L (3.5-5.1); Sodium 136 mEq/L (136-145); eGFR For Non-African Americans > 60 (> 60)
[2017-12-20 06:14] LABS: Basophils % 0.4 %; Eosinophils # 0.4 K/mcL (0.0-0.6); Eosinophils % 6.5 %; Hemoglobin 9.4 g/dL (11.5-15.4); Immature Granulocytes % 0.4 % (0-4); Lymphocytes # 2.1 K/mcL (0.6-4.6); Lymphocytes % 36.1 %; Mean Corpuscular HGB Conc 32.4 g/dL (31.6-35.5); Mean Corpuscular Hemoglobin 32.4 pg (28.0-33.3); Monocytes # 0.6 K/mcL (0.0-1.3); Monocytes % 11.1 %; Neutrophils # 2.6 K/mcL (1.6-8.9); Platelet Count 253 K/mcL (140-400); Segmented Neutrophils % 45.5 %
[2017-12-20] MEDS: 0.9 % Sodium Chloride 1,000 ML IVC SCH ×3 (07:44→15:23)
[2017-12-20] MEDS: OLANZapine 10 MG TAB.RAPDIS PO SCH (08:19)
[2017-12-20] MEDS: *HR* FentaNYL (PF) 100 MCG/2 ML VIAL IVP PRN ×3 (08:20→20:34)
[2017-12-20] MEDS: Patient Taking Own Medication 1 EACH PO SCH ×4 (08:21→23:37)
[2017-12-20] MEDS: Insulin LISPRO 300 UNITS/3 ML VIAL SQ SCH ×3 (08:37→17:26)
--- NOTE | 2017-12-20 12:34 | Internal Med Progress Note ---
<Joanie Donaldson R - Last Filed: 12/20/17 14:00> Hospitalist Progress Note - Encounter Date of Encounter: 12/20/17 Time of Encounter: 08:00 - Subjective Interval History: HPI: Gayle Abdi is a 42 yr. old women with a hsx of gastric bypass surgery that presented to the ED last night with abdominal pain, vomiting, and weakness. Since the end of August/beginning of September pt has gone from 160 to 113 lbs and has had n/v most days. During this time she has vomited 1-6 times a day and has had non-bloody diarrhea 3-4 times a day. No melena, hematochezia, hematemesis. Abd. pain is worse after eating and goes from 4/10 to 8/10. Pain is in mid-epigastrium, RUQ, and LUQ and radiates to back. She has had many surgeries since her gastric bypass including cholecystectomy, appendectomy, bowel obstruction repair, and bowel resection. Chronic conditions include pancreatitis, alcoholic cirrhosis, gastric ulcers, and malnutrition. Pt was supposed to be a direct admission tomorrow for TPN but her symptoms brought her to the ED last night. A picc line was placed and she was started on TPN. CT A/P showed diffuse fatty infiltration of the liver with a small geographic patch of focal fatty sparing in the left hepatic lobe. The pancreas is atrophic and there is no small bowel obstruction. Upper GI endoscopy showed normal esophagus and two non-bleeding cratered anastomotic ulcers with no stigmata of bleeding at the gastroenteric anastomosis. Largest lesion is 3 cm and the 2 ulcers are connected and cover 60% of the anastomosis. Biopsy taken for histology. Receiving Carafate liquid 4 x day and IV PPI per GI. Today pt is feeling uncomfortable with 4/10 abdominal pain. She is not nauseous and started eating breakfast. Sore was visualized on right corner of mouth that pt attributes to daily vomiting. ROS: General: intermittent low grade fever around 99.2, fatigue, weight loss Resp: no SOB, coughing CV: no chest pain, palpitations GI: per HPI : no dysuria, hematuria - Exam Vitals: Temp Pulse Resp BP Pulse Ox 98.0 F 75 14 89/57 94 12/20/17 10:38 12/20/17 10:38 12/20/17 10:38 12/20/17 10:38 12/20/17 10:38 Exam: Exam: General: alert and oriented x 3, extremely thin CV: RRR, no murmurs Resp: CTAB bilaterally, no wheezes, rales, rhonci GI: tender to palpation RUQ, LUQ, mid-epigastrium; no masses, bs x 4 quadrants Extremities: +1 pedal edema - Assessment and Plan (1) Abdominal pain Current Visit: Yes Status: Acute Assessment and Plan: -Chronic epigastric and upper abdominal pain, worsening, could be related to gastric ulcer and multiple previous abdominal surgeries. -GI consulted; CT abdomen/pelvis in the emergency room showed no acute abnormality. -Pain control with oxycodone and IV fentanyl, when necessary antiemetics. SNOMED Code(s): 73792554 Comments: (2) Bloating Current Visit: Yes Status: Acute Assessment and Plan: - SIBO testing ordered as outpatient for 12/27 (3) History of alcohol abuse Current Visit: Yes Status: Acute (4) Alcoholic cirrhosis of liver without ascites Current Visit: Yes Status: Chronic Assessment and Plan: -AST 70, ALT 45 -hold diuretics for now; continue supportive care (5) Bipolar disorder Current Visit: Yes Status: Chronic Assessment and Plan: -Home med Vilazodone -Will consult psych as needed (6) Gastric ulcer Current Visit: Yes Status: Chronic Assessment and Plan: -EGD from September 2017 showed nonbleeding cratered gastric ulcer at the anastomotic site. Continue PPI. -GI consulted; Upper GI endoscopy 12/19/2017 showed normal esophagus and two non- bleeding cratered anastomotic ulcers with no stigmata of bleeding at the gastroenteric anastomosis. Largest lesion is 3 cm and the 2 ulcers are connected and cover 60% of the anastomosis. Biopsy taken for histology. -Receiving Carafate liquid 4 x day and IV Pantoprazole 20mL/hr per GI (7) Lymphedema Current Visit: Yes Status: Chronic (8) Malnutrition Current Visit: Yes Status: Chronic Assessment and Plan: -Due to multiple abdominal surgeries and gastric ulcer, has failure to thrive -Protein-calorie malnutrition -PICC line placed and started on TPN -Nutrition counseling recommended per GI (9) Tobacco abuse Current Visit: Yes Status: Chronic Assessment and Plan: -Nicotine TD patch PRN (10) Chronic pancreatitis Current Visit: Yes Status: Chronic Assessment and Plan: -Amylase 14, lipase 9 -Virgilio Ramos 6,000 Units Capsule 6 each PO TID VINEET (11) Hepatic steatosis Current Visit: No Status: Chronic Assessment and Plan: - CT A/P showed diffuse fatty infiltration of the liver with a small geographic patch of focal fatty sparing in the left hepatic lobe. (12) DVT prophylaxis Current Visit: No Status: Acute Assessment and Plan: Heparin SQ - Time Spent with Patient Total time spent is greater than 50% in coordination of care (as documented) at patient's floor/unit and/or counseling patient: Internal Medicine: Result - Labs CBC & Chem 7: 12/20/17 05:33 12/20/17 04:00 Labs: Short CBC 12/20/17 Range/Units 05:33 WBC 5.7 (4.3-11.1) K/mcL Hgb 9.4 L (11.5-15.4) g/dL Hct 29.0 L (35.3-44.9) % Plt Count 253 (140-400) K/mcL Neutrophils # 2.6 (1.6-8.9) K/mcL BMP 12/20/17 04:00 Sodium 136 Potassium 3.7 Chloride 114 H Carbon Dioxide 17 L BUN 5 L Creatinine 0.42 L Glucose 231 H Calcium 7.3 L Consult Discharge Plan - Plan Referrals: Fam Rubin DO [Primary Care Provider] - <Franklin Kaplan - Last Filed: 12/20/17 18:24> Hospitalist Progress Note - Encounter Date of Encounter: 12/20/17 - Exam Vitals: Temp Pulse Resp BP Pulse Ox 98.2 F 85 14 93/60 96 12/20/17 14:17 12/20/17 14:17 12/20/17 14:17 12/20/17 14:17 12/20/17 14:17 - Assessment and Plan (1) Tobacco abuse Current Visit: Yes Status: Chronic (2) Chronic pancreatitis Current Visit: Yes Status: Chronic (3) Malnutrition Current Visit: Yes Status: Chronic (4) Bipolar disorder Current Visit: Yes Status: Chronic (5) Lymphedema Current Visit: Yes Status: Chronic (6) Alcoholic cirrhosis of liver without ascites Current Visit: Yes Status: Chronic (7) Abdominal pain Current Visit: Yes Status: Acute Comments: (8) Gastric ulcer Current Visit: Yes Status: Chronic - Time Spent with Patient Total time spent is greater than 50% in coordination of care (as documented) at patient's floor/unit and/or counseling patient: Internal Medicine: Result - Labs CBC & Chem 7: 12/20/17 05:33 12/20/17 04:00 Labs: Short CBC 12/20/17 Range/Units 05:33 WBC 5.7 (4.3-11.1) K/mcL Hgb 9.4 L (11.5-15.4) g/dL Hct 29.0 L (35.3-44.9) % Plt Count 253 (140-400) K/mcL Neutrophils # 2.6 (1.6-8.9) K/mcL BMP 12/20/17 04:00 Sodium 136 Potassium 3.7 Chloride 114 H Carbon Dioxide 17 L BUN 5 L Creatinine 0.42 L Glucose 231 H Calcium 7.3 L - Attending Attestation The history, physical exam, and medical decision making was performed by the medical student either while I was physically present and actively involved or I personally re-performed the exam and medical decision making. I have verified the accuracy of the medical student's documentation with regards to the history, physical exam findings, and medical decision making on on 12/20/17. Ms Abdi is currently in observation due to abd pain due to gastric ulcer and chronic pancreatitis. She remains moderate to high risk. Ms Abdi is having some nausea and pain but is tolerating some diet. Tolerating TPN as well. No fever or chills. No diarrhea now. Exam alert Comfortable at rest Mucus membranes dry Heart reg and not tachy Lungs clear at this time Abd soft with epigastric discomfort No focal neuro deficit noted. I/P 1. Gastric ulcer 2. Chronic pancreatitis Further diagnoses and plan as above. Possible d/c tomorrow. <Joanie Donaldson Last Filed: 12/20/17 14:00> (1) Abdominal pain Qualifiers: Abdominal location: upper abdomen, unspecified Qualified Code(s): R10.10 - Upper abdominal pain, unspecified (5) Bipolar disorder Qualifiers: Active/Remission status: remission status unspecified Qualified Code(s): F31.9 - Bipolar disorder, unspecified (6) Gastric ulcer Qualifiers: Gastric ulcer chronicity: chronic Gastric ulcer complication status: without hemorrhage or perforation Qualified Code(s): K25.7 - Chronic gastric ulcer without hemorrhage or perforation (8) Malnutrition Qualifiers: Malnutrition type: protein-calorie malnutrition Protein-calorie malnutrition severity: unspecified severity Qualified Code(s): E46 - Unspecified protein- calorie malnutrition (10) Chronic pancreatitis Qualifiers: Pancreatitis type: alcohol induced Qualified Code(s): K86.0 - Alcohol- induced chronic pancreatitis <Franklin Kaplan A - Last Filed: 12/20/17 18:24> (2) Chronic pancreatitis Qualifiers: Pancreatitis type: alcohol induced Qualified Code(s): K86.0 - Alcohol- induced chronic pancreatitis (3) Malnutrition Qualifiers: Malnutrition type: protein-calorie malnutrition Protein-calorie malnutrition severity: severe Qualified Code(s): E43 - Unspecified severe protein-calorie malnutrition (4) Bipolar disorder Qualifiers: Active/Remission status: remission status unspecified Qualified Code(s): F31.9 - Bipolar disorder, unspecified (7) Abdominal pain Qualifiers: Abdominal location: upper abdomen, unspecified Qualified Code(s): R10.10 - Upper abdominal pain, unspecified (8) Gastric ulcer Qualifiers: Gastric ulcer chronicity: chronic Gastric ulcer complication status: without hemorrhage or perforation Qualified Code(s): K25.7 - Chronic gastric ulcer without hemorrhage or perforation
[2017-12-20] MEDS: Ondansetron ODT 4 MG TAB.RAPDIS SL PRN (13:46)
[2017-12-20] MEDS ORDERED: Clinimix E 5%-15% SOLUTION 2,000 ML with MVI, adult with vitamin K 10 ML IVC SCH (17:00)
[2017-12-20] MEDS: Pantoprazole 40 MG VIAL IVP SCH (19:02)
[2017-12-21 03:52] LABS: Basophils % 0.6 %; Eosinophils # 0.5 K/mcL (0.0-0.6); Eosinophils % 9.9 %; Hematocrit 30.1 % (35.3-44.9); Immature Granulocytes % 0.8 % (0-4); Immature Platelets 1.7 % (1.1-6.1); Lymphocytes # 2.1 K/mcL (0.6-4.6); Lymphocytes % 43.7 %; Mean Corpuscular HGB Conc 33.2 g/dL (31.6-35.5); Mean Corpuscular Volume 102.4 fL (83.0-100.0); Monocytes # 0.5 K/mcL (0.0-1.3); Monocytes % 11.2 %; Neutrophils # 1.6 K/mcL (1.6-8.9); Platelet Count 233 K/mcL (140-400); Red Blood Count 2.94 M/mcL (3.82-4.97); Red Cell Distribution Width 14.9 % (11.5-14.5); Segmented Neutrophils % 33.8 %
[2017-12-21 04:18] LABS: Alanine Aminotransferase 20 Units/L (7-52); Albumin 1.7 g/dL (3.5-5.7); Albumin/Globulin Ratio 0.9 (1.1-2.2); Alkaline Phosphatase 86 Units/L (34-104); Aspartate Amino Transferase 23 Units/L (13-39); BUN/Creatinine Ratio 19 (6-26); Bilirubin,Total 0.4 mg/dL (0.3-1.0); Blood Urea Nitrogen 6 mg/dL (6-20); Calcium 7.5 mg/dL (8.6-10.3); Carbon Dioxide 23 mEq/L (23-29); Chloride 114 mEq/L (98-107); Glucose 96 mg/dL (70-105); Osmolality,Calculated 283 (280-300); Potassium 4.4 mEq/L (3.5-5.1); Sodium 138 mEq/L (136-145); Total Protein 3.7 g/dL (6.4-8.9); eGFR For Non-African Americans > 60 (> 60)
[2017-12-21 04:19] LABS: Magnesium 1.8 mg/dL (1.6-2.6); Phosphorous 4.6 mg/dL (2.7-4.5)
[2017-12-21] MEDS: Insulin LISPRO 300 UNITS/3 ML VIAL SQ SCH ×5 (05:14→21:46)
[2017-12-21] MEDS: Pantoprazole 40 MG VIAL IVP SCH ×2 (05:15→16:40)
[2017-12-21] MEDS: *HR* FentaNYL (PF) 100 MCG/2 ML VIAL IVP PRN ×2 (05:15→16:40)
[2017-12-21] MEDS: *HR* Heparin 5,000 UNIT/ML VIAL SQ SCH ×4 (08:00→23:54)
[2017-12-21] MEDS ORDERED: Calcium Gluconate 2,000 MG in 0.9 % Sodium Chloride 100 ML IVPB ONE (08:29)
[2017-12-21] MEDS: OLANZapine 10 MG TAB.RAPDIS PO SCH (08:41)
[2017-12-21] MEDS: Patient Taking Own Medication 1 EACH PO SCH ×4 (08:42→21:52)
[2017-12-21] MEDS: Ondansetron ODT 4 MG TAB.RAPDIS SL PRN (08:42)
[2017-12-21] MEDS ORDERED: *HR* Promethazine 25 MG/ML VIAL IVP PRN ×2 (09:03→14:38)
--- NOTE | 2017-12-21 09:44 | Discharge Summary ---
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 - Alcohol- induced chronic pancreatitis (3) Malnutrition Status: Chronic Qualifiers: Malnutrition type: protein-calorie malnutrition Protein-calorie malnutrition severity: severe Qualified Code(s): E43 - Unspecified severe protein-calorie malnutrition (4) Bipolar disorder Status: Chronic Qualifiers: Active/Remission status: remission status unspecified Qualified Code(s): F31.9 - Bipolar disorder, unspecified (5) Lymphedema Status: Chronic (6) Alcoholic cirrhosis of liver without ascites Status: Chronic (7) Abdominal pain Status: Acute Qualifiers: Abdominal location: upper abdomen, unspecified Qualified Code(s): R10.10 - Upper abdominal pain, unspecified (8) Gastric ulcer Status: Chronic Qualifiers: Gastric ulcer chronicity: chronic Gastric ulcer complication status: without hemorrhage or perforation Qualified Code(s): K25.7 - Chronic gastric ulcer without hemorrhage or perforation Hospital course: Ms. Abdi is a 42 year old female - Time Spent with Patient Total time spent providing and/or coordinating discharge services: - Discharge Medications Home Medications: Cyanocobalamin (B-12) [Vitamin B12] 1,000 mcg IM QMONTH 12/18/17 [History] Dextroamphetamine/Amphetamine [Adderall 10 mg Tablet] 10 mg PO TID 12/18/17 [ History] Ergocalciferol (VITAMIN D2) [Vitamin D2] 50,000 unit PO Q14D 12/18/17 [History] Furosemide [Lasix] 20 mg PO DAILY 12/18/17 [History] Lipase/Protease/Amylase [Creon Dr 36,000 Units Capsule] 36,000 units PO TID [History] OLANZapine [Zyprexa] 20 mg PO DAILY 12/18/17 [History] Ondansetron HCl [Zofran] 4 mg PO Q8HR PRN 12/18/17 [History] Spironolactone [Aldactone] 50 mg PO DAILY 12/18/17 [History] Sucralfate [Carafate] 1 gm PO BID 12/18/17 [History] Vilazodone HCl [Viibryd] 40 mg PO DAILY 12/18/17 [History] Allergies/Adverse Reactions: 3 Allergy/AdvReac Type Severity Reaction Status Date / Time cephalexin Allergy Rash Verified 07/18/17 15:36 clindamycin Allergy Rash Verified 07/18/17 15:36 nalbuphine [From Nubain] AdvReac "didn't Verified 07/18/17 15:[address] it made me feel" Date of admission: 12/19/17 08:53 Primary care physician: Fam Rubin DO Consults: 12/19/17 09:30 Consult to Invasive Line Access Team [CONS] Routine Reason for Consult: PICC for initiation of TPN Line Type: PICC 12/19/17 11:32 Consult to Invasive Line Access Team [CONS] Routine Reason for Consult: Picc Line Insertion Line Type: PICC PICC line indications: Parental nutrition Time Notified: 11:32 Call Completed: No 12/19/17 11:33 Consult to Invasive Line Access Team [CONS] Routine Reason for Consult: Picc Line Insertion Line Type: PICC PICC line indications: Parental nutrition Time Notified: 11:34 Call Completed: No - Constitutional Vitals: Temp Pulse Resp BP Pulse Ox 98.3 F 80 14 88/57 100 12/21/17 07:09 12/21/17 07:09 12/21/17 07:09 12/21/17 07:09 12/21/17 07:09 General appearance: Present: cachectic, mild distress, A&O X 3, answers questions appropriately - Patient Status Condition: Good - Discharge Instructions Follow Up With: Fam Rubin DO [Primary Care Provider] -
[2017-12-21] MEDS: *HR* OxyCODONE Immed Rel 5 MG TABLET PO PRN (10:21)
--- NOTE | 2017-12-21 12:30 | Gastroenterology Progress Note ---
<LeesOj Champ - Last Filed: 12/21/17 12:28> Date of Encounter: 12/21/17 Time of Encounter: 10:45 - Assessment and plan (1) Malnutrition Current Visit: No Status: Chronic Assessment and plan: Continue TPN. Qualifiers: Malnutrition type: protein-calorie malnutrition Protein-calorie malnutrition severity: unspecified severity Qualified Code(s): E46 - Unspecified protein-calorie malnutrition (2) Gastric ulcer Current Visit: Yes Status: Chronic Assessment and plan: Refractory ulcer which is worsening. EGD showed nonbleeding deep cratered anastomotic ulcers involving approximately 60% of the circumference of the anastomosis. Use Carafate 4 times a day. Start Zegerid twice a day. Qualifiers: Gastric ulcer chronicity: chronic Gastric ulcer complication status: without hemorrhage or perforation Qualified Code(s): K25.7 - Chronic gastric ulcer without hemorrhage or perforation (3) Bloating Current Visit: Yes Status: Acute Assessment and plan: SIBO testing ordered as outpatient for 12/27. (4) Hepatic steatosis Current Visit: No Status: Chronic Assessment and plan: CT A/P showed diffuse fatty infiltration of the liver with a small geographic patch of focal fatty sparing in the left hepatic lobe. (5) History of Flynn-en-Y gastric bypass Current Visit: Yes Status: Acute (6) History of alcohol abuse Current Visit: Yes Status: Acute - Time Spent With Patient Total time spent is greater than 50% in coordination of care (as documented) at patient's floor/unit and/or counseling patient: - Subjective Interval history: Patient reports feeling better today. - Constitutional Vitals: Temp Pulse Resp BP Pulse Ox 97.8 F 93 14 93/57 95 12/21/17 10:34 12/21/17 10:34 12/21/17 10:34 12/21/17 10:34 12/21/17 10:34 General appearance: Present: cachectic, cooperative, A&O X 3, no acute distress , answers questions appropriately - Head Head exam: Present: atraumatic, normocephalic - Eye Eye exam: Present: normal appearance, sclera anicteric - ENT ENT exam: Present: mucous membranes moist - Neck Neck exam general surgery: Present: normal inspection, trachea midline - Respiratory Respiratory exam: Present: CTAB. Absent: rales, rhonchi, wheezes - Cardiovascular Cardiovascular exam: Present: RRR, +S1, +S2 - GI/Abdominal GI/Abdominal exam: Present: soft, tenderness (mild upper abdomen tenderness), no peritoneal signs. Absent: distended, firm, guarding - Rectal Rectal exam: Present: deferred - Extremities Exam Extremities exam: Present: warm - Neurological Exam Neurological exam: Present: no focal deficits - Psychiatric Psychiatric exam: Present: normal affect, normal mood - Skin Skin exam: Present: dry, intact, normal color, warm Results - Labs CBC & Chem 7: 12/21/17 03:04 12/21/17 03:04 Labs: Last Result Calcium 7.5 mg/dL (8.6-10.3) L 12/21/17 03:04 Triglycerides 113 mg/dL (< 150) 12/19/17 07:01 Entire Visit Hgb 10.0 g/dL (11.5-15.4) L 12/21/17 03:04 Hct 30.1 % (35.3-44.9) L 12/21/17 03:04 Total Bilirubin 0.4 mg/dL (0.3-1.0) 12/21/17 03:04 AST 23 Units/L (13-39) 12/21/17 03:04 ALT 20 Units/L (7-52) 12/21/17 03:04 Amylase 14 Units/L (29-103) L 12/18/17 21:18 Lipase 9 Units/L (11-82) L 12/18/17 21:18 - VTE Documentation of Mechanical Device: Graduated compression elastic hosiery Consult Discharge Plan - Plan Referrals: Fam Rubin DO [Primary Care Provider] - <Emanuel Manley - Last Filed: 12/21/17 16:41> Date of Encounter: 12/21/17 Time of Encounter: 13:00 - Time Spent With Patient Total time spent is greater than 50% in coordination of care (as documented) at patient's floor/unit and/or counseling patient: - Constitutional Vitals: Temp Pulse Resp BP Pulse Ox 98.6 F 98 15 84/84 95 12/21/17 13:51 12/21/17 13:51 12/21/17 13:51 12/21/17 13:51 12/21/17 13:51 Results - Labs CBC & Chem 7: 12/21/17 03:04 12/21/17 03:04 Labs: Last Result Calcium 7.5 mg/dL (8.6-10.3) L 12/21/17 03:04 Triglycerides 113 mg/dL (< 150) 12/19/17 07:01 Entire Visit Hgb 10.0 g/dL (11.5-15.4) L 12/21/17 03:04 Hct 30.1 % (35.3-44.9) L 12/21/17 03:04 Total Bilirubin 0.4 mg/dL (0.3-1.0) 12/21/17 03:04 AST 23 Units/L (13-39) 12/21/17 03:04 ALT 20 Units/L (7-52) 12/21/17 03:04 Amylase 14 Units/L (29-103) L 12/18/17 21:18 Lipase 9 Units/L (11-82) L 12/18/17 21:18 - Attending Attestation I have personally performed a face to face evaluation on this patient. I have reviewed and agree with the care plan. History and Exam by me shows: Pt seen. O/E AAO, looks stronger then before A: Malnutrition, Anatostomotic gastric ulcer. Rec: cont QID carafate liquid, Cont PPI , on d/c change to Zegerid powder BID along with crafate liquid QID. Will try to approve IV PPI for home use. Home TPN
--- NOTE | 2017-12-21 12:51 | Internal Med Progress Note ---
<Joanie Donaldson R - Last Filed: 12/21/17 17:20> Hospitalist Progress Note - Encounter Date of Encounter: 12/21/17 Time of Encounter: 14:00 - Subjective Interval History: HPI: Gayle Abdi is a 42 yr. old women with a hsx of gastric bypass surgery that presented to the ED last night with abdominal pain, vomiting, and weakness. Since the end of August/beginning of September pt has gone from 160 to 113 lbs and has had n/v most days. During this time she has vomited 1-6 times a day and has had non-bloody diarrhea 3-4 times a day. No melena, hematochezia, hematemesis. Abd. pain is worse after eating and goes from 4/10 to 8/10. Pain is in mid-epigastrium, RUQ, and LUQ and radiates to back. She has had many surgeries since her gastric bypass including cholecystectomy, appendectomy, bowel obstruction repair, and bowel resection. Chronic conditions include pancreatitis, alcoholic cirrhosis, gastric ulcers, and malnutrition. Pt was supposed to be a direct admission tomorrow for TPN but her symptoms brought her to the ED last night. A picc line was placed and she was started on TPN. CT A/P showed diffuse fatty infiltration of the liver with a small geographic patch of focal fatty sparing in the left hepatic lobe. The pancreas is atrophic and there is no small bowel obstruction. Upper GI endoscopy showed normal esophagus and two non-bleeding cratered anastomotic ulcers with no stigmata of bleeding at the gastroenteric anastomosis. Largest lesion is 3 cm and the 2 ulcers are connected and cover 60% of the anastomosis. Biopsy taken for histology. Receiving Carafate liquid 4 x day and IV PPI per GI. Today pt is feeling uncomfortable with 4/10 abdominal pain. She is not nauseous and started eating breakfast. Sore was visualized on right corner of mouth that pt attributes to daily vomiting. ROS: General: intermittent low grade fever around 99.2, fatigue, weight loss Resp: no SOB, coughing CV: no chest pain, palpitations GI: per HPI : no dysuria, hematuria 12/21/2017 Pt ate most of her breakfast this morning and vomited x2. She is still hungry and was planing on eating some yogurt after receiving Phenergan. Pt continues to have nausea and abdominal pain but has not had a bowel movement since in the past 2 days. She is wearing compressions stockings and states that her feet feel less tight and tender. Is having a MRI this evening per GI. Will receive overnight TPN. Fatigued, no fever No sore throat No chest pain No coughing, wheezing, SOB Nausea, vomiting, and diffuse abdominal pain No dysuria, hematuria No numbness, tingling - Exam Vitals: Temp Pulse Resp BP Pulse Ox 97.8 F 93 14 93/57 95 12/21/17 10:34 12/21/17 10:34 12/21/17 10:34 12/21/17 10:34 12/21/17 10:34 Exam: 12/21/2017 Alert and oriented, pleasant, frail and fatigued Neck soft and supple, no lymphadenopathy RRR, no murmurs CTAB, no wheezes, rhales, or rhonchi Abd tender to palpation, BSx4 quadrants Sore on right corner of mouth Pedal edema improved since yesterday, wearing compression stokings - Assessment and Plan (1) Gastric ulcer Current Visit: Yes Status: Chronic Assessment and Plan: -EGD from September 2017 showed nonbleeding cratered gastric ulcer at the anastomotic site. Continue PPI. -Upper GI endoscopy 12/19/2017 showed normal esophagus and two non-bleeding cratered anastomotic ulcers with no stigmata of bleeding at the gastroenteric anastomosis. Largest lesion is 3 cm and the 2 ulcers are connected and cover 60 % of the anastomosis. Biopsy taken for histology. -Receiving Carafate liquid 4 x day and IV Pantoprazole 20mL/hr per GI -Use Carafate 4 times a day, start Zegerid twice a day per GI (2) Malnutrition Current Visit: Yes Status: Chronic Assessment and Plan: -Due to multiple abdominal surgeries and gastric ulcer, has failure to thrive -Protein-calorie malnutrition -PICC line placed and started on TPN -Continue TPN per GI -overnight TPN (3) Abdominal pain Current Visit: Yes Status: Acute Assessment and Plan: -Chronic epigastric and upper abdominal pain, worsening, could be related to gastric ulcer and multiple previous abdominal surgeries. -CT abdomen/pelvis in the emergency room showed no acute abnormality. -Pain control with oxycodone and IV fentanyl, when necessary antiemetics.Now has the option of IV Phenergan. SNOMED Code(s): 17301133 Comments: (4) Bloating Current Visit: Yes Status: Acute Assessment and Plan: SIBO testing ordered as outpatient for 12/27 (5) History of alcohol abuse Current Visit: Yes Status: Acute (6) Alcoholic cirrhosis of liver without ascites Current Visit: Yes Status: Chronic Assessment and Plan: -AST 23, ALT 20 -hold diuretics for now; continue supportive care (7) Bipolar disorder Current Visit: Yes Status: Chronic Assessment and Plan: -Home med Vilazodone -Will consult psych as needed (8) Lymphedema Current Visit: Yes Status: Chronic (9) Tobacco abuse Current Visit: Yes Status: Chronic Assessment and Plan: -Nicotine TD patch PRN (10) Chronic pancreatitis Current Visit: Yes Status: Chronic Assessment and Plan: -Amylase 14, lipase 9 -Creon Dr 6,000 Units Capsule 6 each PO TID VINEET (11) Hepatic steatosis Current Visit: No Status: Chronic Assessment and Plan: - CT A/P showed diffuse fatty infiltration of the liver with a small geographic patch of focal fatty sparing in the left hepatic lobe. (12) DVT prophylaxis Current Visit: No Status: Acute Assessment and Plan: Heparin SQ - Time Spent with Patient Total time spent is greater than 50% in coordination of care (as documented) at patient's floor/unit and/or counseling patient: Internal Medicine: Result - Labs CBC & Chem 7: 12/21/17 03:04 12/21/17 03:04 Labs: Short CBC 12/21/17 Range/Units 03:04 WBC 4.8 (4.3-11.1) K/mcL Hgb 10.0 L (11.5-15.4) g/dL Hct 30.1 L (35.3-44.9) % Plt Count 233 (140-400) K/mcL Neutrophils # 1.6 (1.6-8.9) K/mcL BMP 12/21/17 03:04 Sodium 138 Potassium 4.4 Chloride 114 H Carbon Dioxide 23 BUN 6 Creatinine 0.32 L Glucose 96 Calcium 7.5 L Liver Function 12/21/17 Range/Units 03:04 Total Bilirubin 0.4 (0.3-1.0) mg/dL AST 23 (13-39) Units/L ALT 20 (7-52) Units/L Alkaline Phosphatase 86 (34-104) Units/L Albumin 1.7 L (3.5-5.7) g/dL - VTE Documentation of Mechanical Device: Graduated compression elastic hosiery Consult Discharge Plan - Plan Referrals: Fam Rubin DO [Primary Care Provider] - <Franklin Kaplan - Last Filed: 12/21/17 18:57> Hospitalist Progress Note - Encounter Date of Encounter: 12/21/17 - Exam Vitals: Temp Pulse Resp BP Pulse Ox 98.6 F 98 15 84/84 95 12/21/17 13:51 12/21/17 13:51 12/21/17 13:51 12/21/17 13:51 12/21/17 13:51 - Assessment and Plan (1) Tobacco abuse Current Visit: Yes Status: Chronic (2) Chronic pancreatitis Current Visit: Yes Status: Chronic (3) Malnutrition Current Visit: Yes Status: Chronic (4) Bipolar disorder Current Visit: Yes Status: Chronic (5) Lymphedema Current Visit: Yes Status: Chronic (6) Alcoholic cirrhosis of liver without ascites Current Visit: Yes Status: Chronic (7) Abdominal pain Current Visit: Yes Status: Acute Comments: (8) Gastric ulcer Current Visit: Yes Status: Chronic - Time Spent with Patient Total time spent is greater than 50% in coordination of care (as documented) at patient's floor/unit and/or counseling patient: Internal Medicine: Result - Labs CBC & Chem 7: 12/21/17 03:04 12/21/17 03:04 Labs: Short CBC 12/21/17 Range/Units 03:04 WBC 4.8 (4.3-11.1) K/mcL Hgb 10.0 L (11.5-15.4) g/dL Hct 30.1 L (35.3-44.9) % Plt Count 233 (140-400) K/mcL Neutrophils # 1.6 (1.6-8.9) K/mcL BMP 12/21/17 03:04 Sodium 138 Potassium 4.4 Chloride 114 H Carbon Dioxide 23 BUN 6 Creatinine 0.32 L Glucose 96 Calcium 7.5 L Liver Function 12/21/17 Range/Units 03:04 Total Bilirubin 0.4 (0.3-1.0) mg/dL AST 23 (13-39) Units/L ALT 20 (7-52) Units/L Alkaline Phosphatase 86 (34-104) Units/L Albumin 1.7 L (3.5-5.7) g/dL - Attending Attestation The history, physical exam, and medical decision making was performed by the medical student either while I was physically present and actively involved or I personally re-performed the exam and medical decision making. I have verified the accuracy of the medical student's documentation with regards to the history, physical exam findings, and medical decision making on 12/21/17. Ms Abdi is currently admitted for gastric ulcer and malnutrition. She remains moderate to high risk due to potential for worsening clinical status. Ms Abdi is feeling a little better today. She is still vomiting but tolerating some diet. No fever or chills. No CP or SOB. No abd pain. To have night cycle TPN tonight. Exam alert Comfortable Mucus membranes dry Heart distant Lungs clear at this time Abd soft No edema No rash No focal neuro deficit I/P 1. Gastric ulcer 2. Malnutrition Further diagnoses and plan as above. <Joanie Donaldson R - Last Filed: 12/21/17 17:20> (1) Gastric ulcer Qualifiers: Gastric ulcer chronicity: chronic Gastric ulcer complication status: without hemorrhage or perforation Qualified Code(s): K25.7 - Chronic gastric ulcer without hemorrhage or perforation (2) Malnutrition Qualifiers: Malnutrition type: protein-calorie malnutrition Protein-calorie malnutrition severity: severe Qualified Code(s): E43 - Unspecified severe protein-calorie malnutrition (3) Abdominal pain Qualifiers: Abdominal location: upper abdomen, unspecified Qualified Code(s): R10.10 - Upper abdominal pain, unspecified (7) Bipolar disorder Qualifiers: Active/Remission status: remission status unspecified Qualified Code(s): F31.9 - Bipolar disorder, unspecified (10) Chronic pancreatitis Qualifiers: Pancreatitis type: alcohol induced Qualified Code(s): K86.0 - Alcohol- induced chronic pancreatitis <Franklin Kaplan - Last Filed: 12/21/17 18:57> (2) Chronic pancreatitis Qualifiers: Pancreatitis type: alcohol induced Qualified Code(s): K86.0 - Alcohol- induced chronic pancreatitis (3) Malnutrition Qualifiers: Malnutrition type: protein-calorie malnutrition Protein-calorie malnutrition severity: severe Qualified Code(s): E43 - Unspecified severe protein-calorie malnutrition (4) Bipolar disorder Qualifiers: Active/Remission status: remission status unspecified Qualified Code(s): F31.9 - Bipolar disorder, unspecified (7) Abdominal pain Qualifiers: Abdominal location: upper abdomen, unspecified Qualified Code(s): R10.10 - Upper abdominal pain, unspecified (8) Gastric ulcer Qualifiers: Gastric ulcer chronicity: chronic Gastric ulcer complication status: without hemorrhage or perforation Qualified Code(s): K25.7 - Chronic gastric ulcer without hemorrhage or perforation
[2017-12-21] MEDS ORDERED: Gadolinium Contrast Agent (WT Based) IV PRN (13:05)
[2017-12-21] MEDS: 0.9 % Sodium Chloride 1,000 ML IVC SCH (16:38)
[2017-12-21] MEDS ORDERED: Clinimix E 5%-15% SOLUTION 2,000 ML with MVI, adult with vitamin K 10 ML, Trace Eleme... IVC SCH (17:00)
[2017-12-22] MEDS: *HR* FentaNYL (PF) 100 MCG/2 ML VIAL IVP PRN ×3 (02:04→21:12)
[2017-12-22 04:19] LABS: BUN/Creatinine Ratio 24 (6-26); Blood Urea Nitrogen 10 mg/dL (6-20); Calcium 7.7 mg/dL (8.6-10.3); Carbon Dioxide 28 mEq/L (23-29); Chloride 107 mEq/L (98-107); Glucose 83 mg/dL (70-105); Magnesium 1.8 mg/dL (1.6-2.6); Osmolality,Calculated 284 (280-300); Phosphorous 3.9 mg/dL (2.7-4.5); Potassium 4.8 mEq/L (3.5-5.1); Sodium 138 mEq/L (136-145); eGFR For Non-African Americans > 60 (> 60)
[2017-12-22] MEDS: Pantoprazole 40 MG VIAL IVP SCH ×2 (07:01→17:53)
[2017-12-22] MEDS: OLANZapine 10 MG TAB.RAPDIS PO SCH (08:05)
[2017-12-22] MEDS: *HR* Heparin 5,000 UNIT/ML VIAL SQ SCH ×2 (08:05→15:44)
[2017-12-22] MEDS: Insulin LISPRO 300 UNITS/3 ML VIAL SQ SCH ×4 (08:05→20:58)
[2017-12-22] MEDS: *HR* OxyCODONE Immed Rel 5 MG TABLET PO PRN (08:20)
[2017-12-22] MEDS ORDERED: GADOXETATE DISODIUM 2.5 MMOL/10 ML VIAL IV ONE (08:22)
[2017-12-22] MEDS: Patient Taking Own Medication 1 EACH PO SCH ×4 (09:55→20:58)
[2017-12-22] MEDS ORDERED: 0.9 % Sodium Chloride 1,000 ML ONE (11:13)
[2017-12-22] MEDS: 0.9 % Sodium Chloride 1,000 ML IVC SCH ×2 (11:40→11:54)
--- NOTE | 2017-12-22 14:12 | Internal Med Progress Note ---
Hospitalist Progress Note - Encounter Date of Encounter: 12/22/17 Time of Encounter: 13:45 - Subjective Interval History: Ms Abdi is currently in observation for malnutrition, gastric ulcer and starting TPN. She remains moderate to high risk at this time. Ms Abdi is having some L side CP with inspiration. No fever or chills. Nausea and vomiting about the same. No diarrhea. Tolerating TPN. No associated symptoms with chest pain except for chronic upper abdominal pain. Had MRCP today. - Exam Vitals: Temp Pulse Resp BP Pulse Ox 98.1 F 97 16 92/60 99 12/22/17 10:50 12/22/17 10:50 12/22/17 10:50 12/22/17 10:50 12/22/17 10:50 Exam: General: Alert and oriented. Comfortable. Thin. Skin: Normal color, no rash, no lesions. Head: Normocephalic and atraumatic EENT: EOMI, pupils equal, round and reactive. Mucus membranes dry. No oral lesions. Cardiovascular: Normal S1 & S2, no rubs, murmurs or gallops. No JVD. Pulse regular. Lungs: Normal breath sounds, no wheezes or crackles. Abdomen: Soft, no rigidity. Normal bowel sounds. Tender in epigastric area. Extremities: No deformity, no edema or tenderness, no joint swelling or clubbing. Neurological: Normal cognition and motor skills. Pulses: Carotid and radial pulses normal +2. Rest of the physical exam is non contributory - Assessment and Plan (1) Costochondral junction syndrome Current Visit: Yes Status: Acute Assessment and Plan: Cannot have NSAID due to gastric ulcer. Continue PRN tylenol and can use moist heat as well. (2) Gastric ulcer Current Visit: Yes Status: Chronic Assessment and Plan: Currently on IV PPI and Carafate. Supportive management. (3) Alcoholic cirrhosis of liver without ascites Current Visit: Yes Status: Chronic Assessment and Plan: Overall at baseline function. Started TPN for increased nutrition. (4) Tobacco abuse Current Visit: Yes Status: Chronic Assessment and Plan: nicotine TD patch PRN; (5) Chronic pancreatitis Current Visit: Yes Status: Chronic Assessment and Plan: Restarted usual home meds. TPN for nutritional supplementation. (6) Malnutrition Current Visit: Yes Status: Chronic Assessment and Plan: Due to multiple abdominal surgeries and gastric ulcer, has failure to thrive; Currently on TPN and will have night cycle. (7) Bipolar disorder Current Visit: Yes Status: Chronic Assessment and Plan: Chronic issue. (8) Lymphedema Current Visit: Yes Status: Chronic Assessment and Plan: Chronic issue. (9) Abdominal pain Current Visit: Yes Status: Acute Assessment and Plan: Intermittent pain. Supportive care for now. MRCP pending. Comments: - Time Spent with Patient Total time spent is greater than 50% in coordination of care (as documented) at patient's floor/unit and/or counseling patient: Internal Medicine: Result - Labs CBC & Chem 7: 12/21/17 03:04 12/22/17 03:50 Labs: BMP 12/22/17 03:50 Sodium 138 Potassium 4.8 Chloride 107 Carbon Dioxide 28 BUN 10 Creatinine 0.41 L Glucose 83 Calcium 7.7 L - Impressions Impressions Abdomen MRI 12/21/17 13:05 IMPRESSION: Fatty liver. No hepatic lesion visualized. D/ / Selma Woodard MD / Selma Woodard MD Interpreting Provider: Selma Woodard MD - VTE Documentation of Mechanical Device: Graduated compression elastic hosiery Consult Discharge Plan - Plan Referrals: Fam Rubin DO [Primary Care Provider] - (2) Gastric ulcer Qualifiers: Gastric ulcer chronicity: chronic Gastric ulcer complication status: without hemorrhage or perforation Qualified Code(s): K25.7 - Chronic gastric ulcer without hemorrhage or perforation (5) Chronic pancreatitis Qualifiers: Pancreatitis type: alcohol induced Qualified Code(s): K86.0 - Alcohol- induced chronic pancreatitis (6) Malnutrition Qualifiers: Malnutrition type: protein-calorie malnutrition Protein-calorie malnutrition severity: severe Qualified Code(s): E43 - Unspecified severe protein-calorie malnutrition (7) Bipolar disorder Qualifiers: Active/Remission status: remission status unspecified Qualified Code(s): F31.9 - Bipolar disorder, unspecified (9) Abdominal pain Qualifiers: Abdominal location: upper abdomen, unspecified Qualified Code(s): R10.10 - Upper abdominal pain, unspecified
[2017-12-22] MEDS: Nicotine 7 MG PATCH.TD24 TD SCH (15:46)
[2017-12-22] MEDS ORDERED: Clinimix E 5%-15% SOLUTION 2,000 ML with MVI, adult with vitamin K 10 ML, Trace Eleme... IVC SCH (17:00)
[2017-12-23] MEDS: *HR* Heparin 5,000 UNIT/ML VIAL SQ SCH ×2 (00:05→08:23)
[2017-12-23] MEDS: Pantoprazole 40 MG VIAL IVP SCH (07:31)
[2017-12-23 07:37] VITALS: BP 93/57
[2017-12-23] MEDS: Insulin LISPRO 300 UNITS/3 ML VIAL SQ SCH ×2 (08:19→12:06)
[2017-12-23] MEDS: OLANZapine 10 MG TAB.RAPDIS PO SCH (08:20)
[2017-12-23] MEDS: Nicotine 7 MG PATCH.TD24 TD SCH (08:20)
[2017-12-23] MEDS: *HR* OxyCODONE Immed Rel 5 MG TABLET PO PRN (08:20)
[2017-12-23] MEDS: Patient Taking Own Medication 1 EACH PO SCH ×2 (08:32)
--- NOTE | 2017-12-23 09:54 | Discharge Summary ---
- NOTES TO OUTPATIENT PROVIDER Notes to Outpatient Provider: Pt hospitalized from endoscopy after EGD found large anastamotic ulcer. She was started on TPN and will go home with it on a nocturnal cycle. She is to follow with Dr Manley as arranged. Orders not resulted at time of discharge: Pending orders 12/22/17 13:53 ECG 12 lead ECG [ECG] Stat 12/23/17 04:00 BMP [Basic Metabolic Panel] AM 0400 Complete Blood Count w/o Diff [HEME] AM 0400 Magnesium AM 0400 Phosphorous AM 0400 12/24/17 04:00 Phosphorous AM 0400 12/25/17 04:00 Phosphorous AM 0400 Date of Encounter: 12/23/17 Time of Encounter: 09:47 - Discharge Diagnosis (1) Gastric ulcer Priority: Primary Status: Chronic Qualifiers: Gastric ulcer chronicity: chronic Gastric ulcer complication status: without hemorrhage or perforation Qualified Code(s): K25.7 - Chronic gastric ulcer without hemorrhage or perforation (2) Costochondral junction syndrome Priority: Secondary Status: Chronic (3) Alcoholic cirrhosis of liver without ascites Priority: Secondary Status: Chronic (4) Tobacco abuse Priority: Secondary Status: Chronic (5) Chronic pancreatitis Priority: Secondary Status: Chronic Qualifiers: Pancreatitis type: alcohol induced Qualified Code(s): K86.0 - Alcohol- induced chronic pancreatitis (6) Malnutrition Priority: Secondary Status: Chronic Qualifiers: Malnutrition type: protein-calorie malnutrition Protein-calorie malnutrition severity: severe Qualified Code(s): E43 - Unspecified severe protein-calorie malnutrition (7) Bipolar disorder Priority: Secondary Status: Chronic Qualifiers: Active/Remission status: remission status unspecified Qualified Code(s): F31.9 - Bipolar disorder, unspecified (8) Lymphedema Priority: Secondary Status: Chronic (9) Abdominal pain Priority: Secondary Status: Chronic Qualifiers: Abdominal location: epigastric Qualified Code(s): R10.13 - Epigastric pain (10) History of Flnyn-en-Y gastric bypass Priority: Secondary Status: Chronic (11) History of alcohol abuse Priority: Secondary Status: Chronic Hospital course: Ms. Abdi is a 42 year old female with hx of Flynn N Y procedure sent for hospitalization from endoscopy lab. She had EGD and found large anastomotic ulcer. She has continued symptoms of pain and vomiting so was hospitalized for PICC and to start TPN. Ms Abdi was placed in observation of med surg. PICC was placed and TPN was started. She continued to have episodes of nausea and vomiting but slowly these were improving and appetite increased. TPN was transitioned to night cycle which she tolerated. Arrangements were made for home TPN and HHC. Today she is tolerating a diet. She is afebrile and symptoms are controlled. Home care has been arranged. She is ready for discharge home. Discharge discussed with: patient - Time Spent with Patient Total time spent providing and/or coordinating discharge services: 39min - Discharge Medications Prescriptions: OxyCODONE Immed Rel [Roxicodone 5 MG] 5 mg PO Q6HR PRN 3 Days #12 tablet PRN Reason: Moderate Pain Promethazine [Phenergan] 12.5 mg PO Q6HR PRN #20 tablet PRN Reason: Nausea And Vomiting Pantoprazole Sodium [Protonix] 40 mg PO BID #60 tablet.dr Home Medications: Cyanocobalamin (B-12) [Vitamin B12] 1,000 mcg IM QMONTH 12/18/17 [History] Dextroamphetamine/Amphetamine [Adderall 10 mg Tablet] 10 mg PO TID 12/18/17 [ History] Ergocalciferol (VITAMIN D2) [Vitamin D2] 50,000 unit PO Q14D 12/18/17 [History] Furosemide [Lasix] 20 mg PO DAILY 12/18/17 [History] Lipase/Protease/Amylase [Virgilio Ramos 36,000 Units Capsule] 36,000 units PO TID [History] OLANZapine [Zyprexa] 20 mg PO DAILY 12/18/17 [History] Ondansetron HCl [Zofran] 4 mg PO Q8HR PRN 12/18/17 [History] Sucralfate [Carafate] 1 gm PO BID 12/18/17 [History] Vilazodone HCl [Viibryd] 40 mg PO DAILY 12/18/17 [History] Acetaminophen [Tylenol] 650 mg PO Q6HR PRN tablet 12/23/17 [Rx] Nicotine Patch [Nicoderm] 7 mg TD DAILY patch.td24 12/23/17 [Rx] OxyCODONE Immed Rel [Roxicodone 5 MG] 5 mg PO Q6HR PRN 3 Days #12 tablet [Rx] Pantoprazole Sodium [Protonix] 40 mg PO BID #60 tablet. 12/23/17 [Rx] Promethazine [Phenergan] 12.5 mg PO Q6HR PRN #20 tablet 12/23/17 [Rx] Allergies/Adverse Reactions: 3 Allergy/AdvReac Type Severity Reaction Status Date / Time cephalexin Allergy Rash Verified 07/18/17 15:36 clindamycin Allergy Rash Verified 07/18/17 15:36 nalbuphine [From Nubain] AdvReac "didn't Verified 07/18/17 15:[address] it made me feel" Date of admission: 12/19/17 08:53 Primary care physician: Fam Rubin DO Consults: 12/19/17 09:30 Consult to Invasive Line Access Team [CONS] Routine Reason for Consult: PICC for initiation of TPN Line Type: PICC 12/19/17 11:32 Consult to Invasive Line Access Team [CONS] Routine Reason for Consult: Picc Line Insertion Line Type: PICC PICC line indications: Parental nutrition Time Notified: 11:32 Call Completed: No 12/19/17 11:33 Consult to Invasive Line Access Team [CONS] Routine Reason for Consult: Picc Line Insertion Line Type: PICC PICC line indications: Parental nutrition Time Notified: 11:34 Call Completed: No Discharging clinician: Franklin Kaplan Anticipated date of discharge: 12/23/17 - Constitutional Vitals: Temp Pulse Resp BP Pulse Ox 98.5 F 83 16 93/57 97 12/23/17 07:35 12/23/17 07:35 12/23/17 07:35 12/23/17 07:35 12/23/17 07:35 General appearance: Present: cachectic, A&O X 3, pleasant, answers questions appropriately Exam: See below - Head Head exam: Present: atraumatic, normocephalic - Eye Eye exam: Present: EOMI, conjuntiva pink - ENT ENT exam: Present: mucous membranes dry, normal external ear exam - Respiratory Respiratory exam: Present: CTAB. Absent: rales, rhonchi, wheezes - Cardiovascular Cardiovascular exam: Present: RRR. Absent: systolic murmur, tachycardia - GI/Abdominal GI/Abdominal exam: Present: soft, tenderness. Absent: mass - Extremities Exam Extremities exam: Present: warm. Absent: pedal edema, tenderness - Neurological Exam Neurological exam: Present: alert, oriented X3, no focal deficits - Psychiatric Psychiatric exam: Present: normal affect, normal mood - Skin Skin exam: Present: dry, warm. Absent: rash - Patient Status Disposition: Home Health Service Condition: Good Functional capacity at discharge: independent ambulation Overall status at discharge: patient is progressing back to baseline - Discharge Instructions Follow Up With: Fam Rubin DO [Primary Care Provider] - - Diet and Activity Activity: increase activity as tolerated Diet: advance to your usual diet (TPN at night as arranged.) - VTE Documentation of Mechanical Device: Graduated compression elastic hosiery
--- NOTE | 2017-12-23 10:03 | Physician Discharge Referral ---
Home Health/Hosp Referral Info Transfer to: Home Health Provider in Charge Post Discharge: PCP - Diagnosis (1) Gastric ulcer Priority: Primary Status: Chronic (2) Costochondral junction syndrome Priority: Secondary Status: Chronic (3) Alcoholic cirrhosis of liver without ascites Priority: Secondary Status: Chronic (4) Tobacco abuse Priority: Secondary Status: Chronic (5) Chronic pancreatitis Priority: Secondary Status: Chronic (6) Malnutrition Priority: Secondary Status: Chronic (7) Bipolar disorder Priority: Secondary Status: Chronic (8) Lymphedema Priority: Secondary Status: Chronic (9) Abdominal pain Priority: Secondary Status: Chronic (10) History of Flynn-en-Y gastric bypass Priority: Secondary Status: Chronic (11) History of alcohol abuse Priority: Secondary Status: Chronic - Respiratory Orders None Smoking Cessation: Smoking cessation has been advised. For more information, call the [place] Tobacco Quit Line at 6-257-CUSS-NOW. - Diet/Nutrition Diet/Nutrition Orders: Regular - Activity Activity Orders: Up ad shena - Services Needed Following services are medically necessary services: Nursing, Home Infusion Home Care Orders: TPN as ordered by Dr. Manley. Labs as per Dr. Manley and tong hooker. - Transfer Medications Prescriptions: OxyCODONE Immed Rel [Roxicodone 5 MG] 5 mg PO Q6HR PRN 3 Days #12 tablet PRN Reason: Moderate Pain Promethazine [Phenergan] 12.5 mg PO Q6HR PRN #20 tablet PRN Reason: Nausea And Vomiting Pantoprazole Sodium [Protonix] 40 mg PO BID #60 tablet. [place] Medications: Cyanocobalamin (B-12) [Vitamin B12] 1,000 mcg IM QMONTH 12/18/17 [History] Dextroamphetamine/Amphetamine [Adderall 10 mg Tablet] 10 mg PO TID 12/18/17 [ History] Ergocalciferol (VITAMIN D2) [Vitamin D2] 50,000 unit PO Q14D 12/18/17 [History] Furosemide [Lasix] 20 mg PO DAILY 12/18/17 [History] Lipase/Protease/Amylase [Virgilio Ramos 36,000 Units Capsule] 36,000 units PO TID [History] OLANZapine [Zyprexa] 20 mg PO DAILY 12/18/17 [History] Ondansetron HCl [Zofran] 4 mg PO Q8HR PRN 12/18/17 [History] Sucralfate [Carafate] 1 gm PO BID 12/18/17 [History] Vilazodone HCl [Viibryd] 40 mg PO DAILY 12/18/17 [History] Acetaminophen [Tylenol] 650 mg PO Q6HR PRN tablet 12/23/17 [Rx] Nicotine Patch [Nicoderm] 7 mg TD DAILY patch.td24 12/23/17 [Rx] OxyCODONE Immed Rel [Roxicodone 5 MG] 5 mg PO Q6HR PRN 3 Days #12 tablet [Rx] Pantoprazole Sodium [Protonix] 40 mg PO BID #60 tablet.dr 12/23/17 [Rx] Promethazine [Phenergan] 12.5 mg PO Q6HR PRN #20 tablet 12/23/17 [Rx] Allergies/Adverse Reactions: 3 Allergy/AdvReac Type Severity Reaction Status Date / Time cephalexin Allergy Rash Verified 07/18/17 15:36 clindamycin Allergy Rash Verified 07/18/17 15:36 nalbuphine [From Nubain] AdvReac "didn't Verified 07/18/17 15:36 like the way it made me feel" Certification: Further, I certify that my clinical findings support that this patient is homebound (i.e. absences from home require considerable and taxing effort and are for medical reasons or catholic services or infrequently or short duration when for other reasons) because: Homebound Reason: Patient requires assistance of a person or device to safely leave home, Leaving home requires considerable and taxing effort due to condition Attestation: My signature below is to certify that this patient is under my care and that I, or nurse practitioner, or a physician's registered medical assistant working with me, has a face-to -face encounter with this patient.
[2017-12-23 10:58] LABS: Hematocrit 29.4 % (35.3-44.9); Hemoglobin 9.6 g/dL (11.5-15.4); Mean Corpuscular HGB Conc 32.7 g/dL (31.6-35.5); Mean Corpuscular Hemoglobin 33.4 pg (28.0-33.3); Mean Corpuscular Volume 102.4 fL (83.0-100.0); Mean Platelet Volume 9.5 fL (9.4-12.4); Platelet Count 223 K/mcL (140-400); Red Blood Count 2.87 M/mcL (3.82-4.97); Red Cell Distribution Width 15.2 % (11.5-14.5)
[2017-12-23 11:17] LABS: BUN/Creatinine Ratio 39 (6-26); Blood Urea Nitrogen 14 mg/dL (6-20); Calcium 7.8 mg/dL (8.6-10.3); Carbon Dioxide 30 mEq/L (23-29); Chloride 106 mEq/L (98-107); Glucose 60 mg/dL (70-105); Magnesium 1.8 mg/dL (1.6-2.6); Osmolality,Calculated 284 (280-300); Potassium 4.3 mEq/L (3.5-5.1); Sodium 138 mEq/L (136-145); eGFR For Non-African Americans > 60 (> 60)
[2017-12-23] MEDS ORDERED: Clinimix E 5%-15% SOLUTION 2,000 ML with MVI, adult with vitamin K 10 ML, Trace Eleme... IVC SCH (17:00)
[2017-12-24] MEDS ORDERED: Clinimix E 5%-15% SOLUTION 2,000 ML with MVI, adult with vitamin K 10 ML, Trace Eleme... IVC SCH (17:00)
--- NOTE | 2017-12-25 21:38 | Electrocardiograph Report ---
[place] [id number] Test Date: 2017-12-22 Pat Name: Gayle Abdi Department: 115 Room: 3A Gender: F Consulting Services Project Manager: : 1975 Requested By: Franklin Kaplan Order Number: [id number] Reading MD: Emani Best Measurements Intervals Strong Rate: 87 P: 25 WI: 100 QRS: 73 QRSD: 81 T: 90 QT: 355 QTc: 399 Interpretive Statements SINUS RHYTHM WITH SHORT WI INTERVAL NONSPECIFIC T-WAVE ABNORMALITY Electronically Signed On 12-25-2017 21:37:13 EDT by mEani Best
== END 2017-12-23 14:00 | disposition home health service (06) | DRG 380 ==
LOC: EMEROOARM 19:31 → 3ANU 19:31 → SUATTDRO 12-19 08:53
PROVIDERS: ADMIT Family Medicine; ATTEND Internal Medicine
PROC: ENDOEBX (2017-12-19 17:00)

== ENCOUNTER 2018-03-21 16:39 | Inpatient (IN) ==
[2018-03-21] MEDS ORDERED: Isovue-370 500 ML INFUS..BTL IV ONE (18:04)
[2018-03-21] MEDS ORDERED: 0.9 % Sodium Chloride 1,000 ML IVC ONE (18:05)
[2018-03-21] MEDS ORDERED: *HR* FentaNYL (PF) 100 MCG/2 ML VIAL IVP ONE ×2 (18:05→21:48)
--- NOTE | 2018-03-21 18:09 | Emergency Department Note ---
Disposition Clinical Impression: History of Flynn-en-Y gastric bypass, Elevated alkaline phosphatase level Lung abscess Qualifiers: Pulmonary abscess pneumonia presence: without pneumonia Laterality: right Lung location: lower lobe of lung Qualified Code(s): J85.2 - Abscess of lung without pneumonia Abdominal pain Qualifiers: Abdominal location: upper abdomen, unspecified Qualified Code(s): R10.10 - Upper abdominal pain, unspecified Disposition: Admitted As Inpatient Condition: Good Time of Disposition: 22:34 General Adult HPI - General Chief complaint: ED Abdominal Pain Stated complaint: bowel obstruction Time Seen by Provider: 03/21/18 17:51 Source: patient Mode of arrival: ambulatory Limitations: no limitations Nursing Notes Reviewed: Yes Vital Signs Reviewed: Yes - History of Present Illness HPI Narrative: Patient is a 42-year-old female that presents the emergency department with abdominal pain. Patient states that she has had a previous gastric bypass surgery in 1998 and since then has had multiple complications including infection, hernia and previous bowel obstructions that it required resection. Patient also states that she has a history of ulcers. He states that over the past 3 days she has not had a bowel movement and she has not had much gas. She states that the last time she passed any gas was yesterday afternoon. Patient denies any fevers or chills. Patient does state that she has been vomiting due to feeling like she cannot eat anything. Patient states that she has tried eating small things like soup however this has been unsuccessful. Patient denies any blood in her stool or in her vomit. Patient also states that she has a history of pancreatitis. Patient states that she has epigastric pain that radiates all the way around in a bandlike fashion. Patient states that she does follow with Dr. Manley and she called his office today and he recommended that she come to the emergency department for further evaluation. Pain Scale: 5 - Related Data Home Medications Medication Instructions Recorded Confirmed Cyanocobalamin (B-12) [Vitamin B12] 1,000 mcg IM QMONTH 12/18/17 02/27/18 Dextroamphetamine/Amphetamine 10 mg PO TID 12/18/17 02/27/18 [Adderall 10 mg Tablet] Ergocalciferol (VITAMIN D2) 50,000 unit PO Q14D 12/18/17 02/27/18 [Vitamin D2] Furosemide [Lasix] 20 mg PO DAILY 12/18/17 02/27/18 Lipase/Protease/Amylase [Virgilio Ramos 36,000 units PO TID 12/18/17 02/27/18 36,000 Units Capsule] OLANZapine [Zyprexa] 20 mg PO DAILY 12/18/17 02/27/18 Sucralfate [Carafate] 1 gm PO BID 12/18/17 02/27/18 Vilazodone HCl [Viibryd] 40 mg PO DAILY 12/18/17 02/27/18 Previous Rx's Medication Instructions Recorded Acetaminophen [Tylenol] 650 mg PO Q6HR PRN tablet 12/23/17 Nicotine Patch [Nicoderm] 7 mg TD DAILY patch.td24 12/23/17 OxyCODONE Immed Rel [Roxicodone 5 5 mg PO Q6HR PRN 3 Days #12 tablet 12/23/17 MG] Pantoprazole Sodium [Protonix] 40 mg PO BID #60 tablet. 12/23/17 Bacitracin OINT [Ak-Tracin] 1 appl TP BID #1 tube 01/18/18 Levofloxacin [Levaquin] 750 mg PO DAILY #10 tablet 02/27/18 Allergies Allergy/AdvReac Type Severity Reaction Status Date / Time cephalexin Allergy Rash Verified 07/18/17 15:36 clindamycin Allergy Rash Verified 07/18/17 15:36 nalbuphine [From Nubain] AdvReac "didn't Verified 07/18/17 15:36 like the way it made me feel" All systems ED: reviewed and negative except as stated. Constitutional: Denies: fever Cardiovascular: Denies: chest pain Respiratory: Denies: dyspnea Gastrointestinal: Reports: abdominal pain, nausea, vomiting. 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 Absent: respiratory distress, wheezes - Cardiovascular Cardiovascular exam: Present: normal rhythm, tachycardia, normal heart sounds, +S1, +S2 - Abdominal Exam Abdominal exam: Present: soft, Non-Tender, normal bowel sounds - Neurological Exam Neurological exam: Present: alert, oriented X3 - Psychiatric Psychiatric exam: Present: normal affect, normal mood - Skin Skin exam: Present: warm, dry, intact Course Vital Signs Temperature 98.7 F 03/21/18 17:06 Pulse Rate 114 03/21/18 17:06 Respiratory Rate 18 03/21/18 17:06 Blood Pressure 114/76 03/21/18 17:06 O2 Sat by Pulse Oximetry 96 03/21/18 17:06 Temperature 98.7 F 03/21/18 18:56 Pulse Rate 114 03/21/18 18:56 Respiratory Rate 18 03/21/18 18:56 Blood Pressure 114/76 03/21/18 18:56 O2 Sat by Pulse Oximetry 96 03/21/18 18:56 Oxygen Delivery Oxygen Delivery Room Air Medical Decision Making - [facility] Narrative Medical decision making narrative: Due the patient presenting to the emergency department for worsening abdominal pain and concern for possible bowel instruction we will obtain basic laboratory testing as well as a CAT scan of the abdomen and pelvis rule out obstruction versus pancreatitis. CT scan of the abdomen and pelvis showed a stool burden and likely constipation. It also showed that there is a high suspicion for a pulmonary abscess. With possible empyema. has remained afebrile and does not have an elevated white count. The patient has been tachycardic here. Patient has remained normotensive. Based on these findings the patient will be started on broad-spectrum antibiotics of vancomycin and Zosyn. At this time the patient does not need sepsis criteria. Patient appears nontoxic. There is no evidence of bowel obstruction or pancreatitis at this time. Patient does have a chronically elevated alkaline phosphatase. I did call and speak with the radiologist read the patient's CT of the abdomen and pelvis and we discussed the findings. He recommended that the patient had a IV contrasted CT of the chest based on the patient having a recent CT the abdomen and pelvis with IV contrast is recommended that we wait until tomorrow morning to give the patient another contrast load. Patient has been stable and is not having any respiratory symptoms at this time I feel that this is reasonable. Patient will be placed on empiric antibiotics of vancomycin and Zosyn. I did call and speak to the admitting hospitalist Dr. Hernandez and he is accepted the patient to their service. He did request that blood cultures be obtained. These have been ordered prior to the patient being admitted to the hospital. Patient will be admitted to the hospital at this time for further evaluation and management. I did relay to the hospitalist that the radiologist did recommend a possible CT- guided tap of the patient's abscess. - Medical Records Medical records reviewed: Yes I reviewed the patient's medical records. - Lab Data Lab results reviewed: Yes I reviewed the patient's lab results. Result diagrams: 03/21/18 18:54 03/21/18 18:54 Lab Results 03/21/18 03/21/18 Range/Units 18:54 18:54 WBC 7.6 (4.3-11.1) K/mcL RBC 4.43 (3.82-4.97) M/mcL Hgb 12.0 (11.5-15.4) g/dL Hct 36.5 (35.3-44.9) % MCV 82.4 L (83.0-100.0) fL MCH 27.1 L (28.0-33.3) pg MCHC 32.9 (31.6-35.5) g/dL RDW 17.6 H (11.5-14.5) % Plt Count 402 H (140-400) K/mcL MPV 8.6 L (9.4-12.4) fL Immature Gran % 0.5 (0-4) % Seg Neutrophils % 40.6 % Lymphocytes % 45.5 % Monocytes % 10.9 % Eosinophils % 2.1 % Basophils % 0.4 % Neutrophils # 3.1 (1.6-8.9) K/mcL Lymphocytes # 3.5 (0.6-4.6) K/mcL Monocytes # 0.8 (0.0-1.3) K/mcL Eosinophils # 0.2 (0.0-0.6) K/mcL Basophils # 0.0 (0.0-0.2) K/mcL Sodium 135 L (136-145) mEq/L Potassium 3.6 (3.5-5.1) mEq/L Chloride 102 (98-107) mEq/L Carbon Dioxide 27 (23-29) mEq/L BUN 9 (6-20) mg/dL Creatinine 0.41 L (0.60-1.20) mg/dL Est GFR ( Amer) > 60 (> 60) Est GFR (Non-Af Amer) > 60 (> 60) BUN/Creatinine Ratio 22 (6-26) Glucose 120 H (70-105) mg/dL Calculated Osmolality 280 (280-300) Calcium 9.1 (8.6-10.3) mg/dL Total Bilirubin 0.4 (0.3-1.0) mg/dL Direct Bilirubin 0.1 (0.0-0.2) mg/dL Indirect Bilirubin 0.3 (0.0-1.2) mg/dL AST 17 (13-39) Units/L ALT 9 (7-52) Units/L Alkaline Phosphatase 137 H (34-104) Units/L Serum Total Protein 6.6 (6.4-8.9) g/dL Albumin 3.1 L (3.5-5.7) g/dL Globulin 3.5 (2.4-3.5) g/dL Albumin/Globulin Ratio 0.9 L (1.1-2.2) Lipase < 3 L (11-82) Units/L - Radiology Data Radiology results reviewed: Yes I reviewed the patient's radiology results. Abdomen/Pelvis CT 03/21/18 18:04 IMPRESSION: In the area of the previously noted right lower lobe pneumonia, there is a persistent area of lung consolidation with peripheral low-attenuation fluid collection with a thick enhancing rim. Lung abscess with possible small empyema suspected as a complication of the pneumonia. Rounded pleural and parenchymal opacity in the lingula suspicious for rounded atelectasis. Both findings are new from the CT abdomen of 12/18/2017. Follow-up chest CT is recommended. Diffuse fatty infiltration of the liver. Unchanged pancreatic atrophy. Moderate stool load suggests constipation. Thickening of the wall of the urinary bladder. Under distention may be contributory. Correlate for possible cystitis. D/ / Bobby Ventura MD / Bobby Ventura MD Interpreting Provider: Bobby Ventura MD Attestation Statement - Attestation Attestation: I examined this patient and my medical decision-making was reviewed with the Resident Physician, Dr. Stanley. I agree with the documented findings, dispos ition and treatment plan as described except to the extent set forth below. Patient is a 42-year-old white female with prior history of pancreatitis and prior abdominal surgeries remotely who presents emergency permit today with complaints and concerns for possible bowel obstruction. Patient complains of gradually worsening generalized abdominal pain cramping and no stool output for the past 72 hours. Patient's complaining of some abdominal bloating denies any fevers or chills, no chest pain shortness of breath, no cough, no diaphoresis, no back or flank pain no urinary symptoms. Patient hospitalized in the past month for right-sided pneumonia and also states she has had a prior history of PE during hospitalization for sepsis. Patient has been following with Dr. arguelles for abdominal pain and epigastric discomfort and has had scopes and concerns for peptic ulcers and she contacted Dr. arguelles with her symptoms recommended she come in for evaluation tonight. I agree with patient's physical exam findings as documented. Patient was tachycardic but stable blood pressure and normal room air sats. Patient's EKG shows sinus tachycardia without ischemia. Patient underwent full lab evaluation urinalysis and CT of the abdomen and pelvis with contrast considering her prior abdominal surgeries in prior Flynn-en-Y. Patient's CT of the abdomen and pelvis was unremarkable with no intra-abdominal or pelvic pathology. Radiology did comment though on concerning findings of a right lower lobe pulmonary abscess. They recommend dedicated CT chest with contrast for further evaluation. Patient has had no respiratory symptoms, white counts within normal limits, patient's been afebrile and hemodynamically stable. Patient with no hemoptysis shortness of breath or dyspnea. We will cover keshawn ent with IV antibiotics and admit the patient as radiology recommends a delay between the contrast administration. Case was discussed with hospitalist service who accepted patient for admission for CT in the morning.
[2018-03-21 19:17] LABS: Basophils % 0.4 %; Eosinophils # 0.2 K/mcL (0.0-0.6); Eosinophils % 2.1 %; Hematocrit 36.5 % (35.3-44.9); Immature Granulocytes % 0.5 % (0-4); Lymphocytes # 3.5 K/mcL (0.6-4.6); Lymphocytes % 45.5 %; Mean Corpuscular HGB Conc 32.9 g/dL (31.6-35.5); Mean Corpuscular Hemoglobin 27.1 pg (28.0-33.3); Mean Corpuscular Volume 82.4 fL (83.0-100.0); Mean Platelet Volume 8.6 fL (9.4-12.4); Monocytes # 0.8 K/mcL (0.0-1.3); Monocytes % 10.9 %; Neutrophils # 3.1 K/mcL (1.6-8.9); Platelet Count 402 K/mcL (140-400); Red Blood Count 4.43 M/mcL (3.82-4.97); Red Cell Distribution Width 17.6 % (11.5-14.5); Segmented Neutrophils % 40.6 %
[2018-03-21 19:34] LABS: Alanine Aminotransferase 9 Units/L (7-52); Albumin 3.1 g/dL (3.5-5.7); Albumin/Globulin Ratio 0.9 (1.1-2.2); Alkaline Phosphatase 137 Units/L (34-104); Aspartate Amino Transferase 17 Units/L (13-39); BUN/Creatinine Ratio 22 (6-26); Bilirubin,Direct 0.1 mg/dL (0.0-0.2); Bilirubin,Indirect 0.3 mg/dL (0.0-1.2); Bilirubin,Total 0.4 mg/dL (0.3-1.0); Blood Urea Nitrogen 9 mg/dL (6-20); Calcium 9.1 mg/dL (8.6-10.3); Carbon Dioxide 27 mEq/L (23-29); Chloride 102 mEq/L (98-107); Globulin 3.5 g/dL (2.4-3.5); Glucose 120 mg/dL (70-105); Lipase < 3 Units/L (11-82); Osmolality,Calculated 280 (280-300); Potassium 3.6 mEq/L (3.5-5.1); Sodium 135 mEq/L (136-145); Total Protein 6.6 g/dL (6.4-8.9); eGFR For Non-African Americans > 60 (> 60)
[2018-03-21] MEDS ORDERED: Piperacillin/Tazobactam 3.375 GM in 0.9 % Sodium Chloride Mini Bag 100 ML IVPB ONE (22:08)
[2018-03-22] MEDS ORDERED: Naloxone 0.4 MG/ML INJ IVP PRN (00:08)
[2018-03-22] MEDS ORDERED: D10% in Water 500 ML IVC SCH (00:15)
[2018-03-22] MEDS: Pantoprazole 40 MG VIAL IVP SCH ×2 (05:04→16:42)
[2018-03-22] MEDS ORDERED: 0.9 % Sodium Chloride 1,000 ML IVC ONE (05:27)
[2018-03-22 05:28] LABS: Hematocrit 34.3 % (35.3-44.9); Hemoglobin 11.2 g/dL (11.5-15.4); Mean Corpuscular HGB Conc 32.7 g/dL (31.6-35.5); Mean Corpuscular Hemoglobin 26.9 pg (28.0-33.3); Mean Corpuscular Volume 82.5 fL (83.0-100.0); Mean Platelet Volume 8.8 fL (9.4-12.4); Platelet Count 376 K/mcL (140-400); Red Blood Count 4.16 M/mcL (3.82-4.97); Red Cell Distribution Width 17.8 % (11.5-14.5)
--- NOTE | 2018-03-22 05:31 | Internal Med History&Physical ---
Date of Encounter: 03/22/18 Time of Encounter: 23:37 Internal Medicine - H&P: HPI Chief complaint: Lung abscess Admitted From: Emergency Dept Plans for Post Hospital Care: Home History of present illness: Ms. Abdi is a 42 year old female She presented to the emergency room for abdominal pain. She has a known history of gastric bypass surgery about 20 years ago, with multiple complications since then including bowel obstructions, pancreatitis and surgical resection. She also has a history of ulcers and cirrhosis, follows with gastroenterology regularly. She states that she had not had a bowel movement for 3 days, when normally she has very loose stools. Due to her concerns she contacted her pathology laboratory aides teacher Dr. Manley, who recommended patient go to the emergency room for further evaluation. Of note patient recently had upper endoscopy a few days ago for evaluation of stomach ulcers. She is on chronic IV Nexium from home administered by her home health nurse. She is also on TPN daily as well. She a lso recently was treated outpatient for bacterial pneumonia after going to an urgent care. She was treated with Levaquin and has since finished her antibiotics. She had a port placed in her right upper chest for TPN and medication administration. In the emergency room patient's CBC and BMP were within normal limits, and patient's lipase was less than 3. An abdominal/pelvic CT showed a persistent area of lung consolidation and the previously noted right lower lobe pneumonia with peripheral low attenuation fluid collection thick enhancing rim. Lung abscess with possible small empyema was suspected as a complication of her pneumonia. There is also rounded pleural and parenchymal opacity in the lingula suspicious for rounded atelectasis both of these findings were new from her previous CT. Patient also had diffuse fatty infiltration of her liver with unchanged pancreatic atrophy. There is moderate stool load suggesting constipation. Is thickening of the wall of the urinary bladder which could indicate cystitis. The emergency room resident spoke with radiology regarding these findings, and the radiologist recommended the patient have an IV contrast CT of the chest to further evaluate the pulmonary findings. Because patient had IV contrast for her previous CT, recommendation was to have the imaging performed the following morning. Blood cultures were drawn, patient was started on IV antibiotics. Upon my evaluation, patient states that she is very anxious regarding the CT findings. She denies chest pain, but has abdominal pain due to the constipation. She has not had any vomiting in the last few hours. Past Med Surg Social Fam HX - Past Medical History Medical history: arthritis, cirrhosis, other Additional medical history: wpw, Psychiatric history: anxiety, bipolar, depression, prior suicide attempt - Past Surgical History Surgical History: appendectomy, cholecystectomy, herniorrhaphy, hysterectomy, other, bariatric surgery Additional surgical history: colon resection,hernia x6,gastric bypass,bowel obstruction, implanted port - Social History Smoking Status: Current every day smoker Packs per day: 1.5 Smokeless Tobacco Status: No Alcohol use: none Drug use: none - Family History Father Adopted: No Living Status: Still Living Hx Family Cardiac Disorders: No Hx Family Respiratory Disorders: No Hx Family Cancer: No Hx Family GI Disorders: No Hx Family Endocrine Disorder: No Hx Family Neuromuscular Disorders: No Hx Family Neurologic Disorders: No Hx Family HEENT Disorders: No Hx Family Autoimmune Disorders: No Grandfather Living Status: Hx Family Cardiac Disorders: Yes ([place]) Maternal Grandmother Living Status: Still Living Hx Family Cancer: Yes (Lung) Sister Living Status: Still Living Hx Family Cancer: Yes (Ovarian) Mother Adopted: No Living Status: Still Living Hx Family Cardiac Disorders: Yes Hx Family Respiratory Disorders: No Hx Family Cancer: No Hx Family GI Disorders: No Hx Family Endocrine Disorder: No Hx Family Neuromuscular Disorders: No Hx Family Neurologic Disorders: No Hx Family HEENT Disorders: No Hx Family Autoimmune Disorders: No Internal Medicine - H&P: Meds Cyanocobalamin (B-12) [Vitamin B12] 1,000 mcg IM QMONTH 12/18/17 [History] Dextroamphetamine/Amphetamine [Adderall 10 mg Tablet] 10 mg PO TID 12/18/17 [History] Ergocalciferol (VITAMIN D2) [Vitamin D2] 50,000 unit PO Q14D 12/18/17 [History] Furosemide [Lasix] 20 mg PO DAILY 12/18/17 [History] Lipase/Protease/Amylase [Creon Dr 36,000 Units Capsule] 36,000 units PO TID 12/18/17 [History] OLANZapine [Zyprexa] 20 mg PO DAILY 12/18/17 [History] Sucralfate [Carafate] 1 gm PO BID 12/18/17 [History] Vilazodone HCl [Viibryd] 40 mg PO DAILY 12/18/17 [History] Acetaminophen [Tylenol] 650 mg PO Q6HR PRN tablet 12/23/17 [Rx] Nicotine Patch [Nicoderm] 7 mg TD DAILY patch.td24 12/23/17 [Rx] OxyCODONE Immed Rel [Roxicodone 5 MG] 5 mg PO Q6HR PRN 3 Days #12 tablet 12/23/17 [Rx] Pantoprazole Sodium [Protonix] 40 mg PO BID #60 tablet. 12/23/17 [Rx] Bacitracin OINT [Ak-Tracin] 1 appl TP BID #1 tube 01/18/18 [Rx] Levofloxacin [Levaquin] 750 mg PO DAILY #10 tablet 02/27/18 [Rx] Allergy/AdvReac Type Severity Reaction Status Date / Time cephalexin Allergy Rash Verified 07/18/17 15:36 clindamycin Allergy Rash Verified 07/18/17 15:36 [id number] [From Nubain] AdvReac "didn't Verified 07/18/17 15:[address] it made me feel" All Systems PM: A 10-system review of systems was performed and is negative for pertinent findings except as documented above in the HPI. - Constitutional Vitals: Temp Pulse Resp BP Pulse Ox 97.9 F 82 16 108/66 97 03/22/18 00:25 03/22/18 00:25 03/22/18 00:25 03/22/18 00:25 03/22/18 00:25 General appearance: Present: cooperative, mild distress, A&O X 3, pleasant, answers questions appropriately Exam: As above - Head Head exam: Present: normal inspection - Eye Eye exam: Present: EOMI, normal appearance - Neck Neck exam general surgery: Absent: tenderness - Respiratory Respiratory exam: Present: CTAB. Absent: chest wall tenderness, rales, respiratory distress, wheezes - Cardiovascular Cardiovascular exam: Present: RRR. Absent: diastolic murmur, systolic murmur - GI/Abdominal GI/Abdominal exam: Present: normal bowel sounds, soft, tenderness Additional comments: Epigastric tenderness - Extremities Exam Extremities exam: Present: warm, radial pulses palpable and symmetrical. Absent: calf tenderness, pedal edema, tenderness - Neurological Exam Neurological exam: Present: no focal deficits, strengths equal and symetr throughout. Absent: motor sensory deficit, facial droop, speech deficit - Skin Skin exam: Present: dry, normal color, warm Internal Med - H&P Results - Labs CBC & Chem 7: 03/22/18 04:00 03/22/18 04:00 Labs: Short CBC 03/21/18 Range/Units 18:54 WBC 7.6 (4.3-11.1) K/mcL Hgb 12.0 (11.5-15.4) g/dL Hct 36.5 (35.3-44.9) % Plt Count 402 H (140-400) K/mcL Neutrophils # 3.1 (1.6-8.9) K/mcL BMP 03/21/18 18:54 Sodium 135 L Potassium 3.6 Chloride 102 Carbon Dioxide 27 BUN 9 Creatinine 0.41 L Glucose 120 H Calcium 9.1 Liver Function 03/21/18 Range/Units 18:54 Total Bilirubin 0.4 (0.3-1.0) mg/dL Direct Bilirubin 0.1 (0.0-0.2) mg/dL AST 17 (13-39) Units/L ALT 9 (7-52) Units/L Alkaline Phosphatase 137 H (34-104) Units/L Albumin 3.1 L (3.5-5.7) g/dL - Impressions ITS Impressions Abdomen/Pelvis CT 03/21/18 18:04 IMPRESSION: In the area of the previously noted right lower lobe pneumonia, there is a persistent area of lung consolidation with peripheral low-attenuation fluid collection with a thick enhancing rim. Lung abscess with possible small empyema suspected as a complication of the pneumonia. Rounded pleural and parenchymal opacity in the lingula suspicious for rounded atelectasis. Both findings are new from the CT abdomen of 12/18/2017. Follow-up chest CT is recommended. Diffuse fatty infiltration of the liver. Unchanged pancreatic atrophy. Moderate stool load suggests constipation. Thickening of the wall of the urinary bladder. Under distention may be contributory. Correlate for possible cystitis. D/ / Bobby Ventura MD / Bobby Ventura MD Interpreting Provider: Bobby Ventura MD - Assessment and plan (1) Lung abscess Current Visit: Yes Status: Acute Assessment and plan: Abscess at location of previous pneumonia site. Patient was treated outpatient with Levaquin. There is also parenchymal opacity in the lingula. Repeat imaging in the morning with CT of chest with contrast to further evaluate Follow-up blood cultures when available Continue IV antibiotics Consider pulmonology consult once imaging completed. Qualifiers: Pulmonary abscess pneumonia presence: without pneumonia Laterality: right Lung location: lower lobe of lung Qualified Code(s): J85.2 - Abscess of lung without pneumonia (2) Constipation Current Visit: No Status: Acute Assessment and plan: Abdomen and pelvis showed moderate stool load without bowel obstruction. Patient has history of malnutrition and poor absorption and normally has loose stools. I am hesitant to give patient a laxative or stool softener, as she has history of short gut syndrome and gastric bypass. GI consult in the morning Continue to monitor Qualifiers: Constipation type: slow transit constipation Qualified Code(s): K59.01 - Slow transit constipation (3) Abdominal pain Current Visit: Yes Status: Chronic Assessment and plan: Secondary to constipation. Patient normally has loose stools. CT scan of abdomen did not reveal bowel obstruction. Plan as above Qualifiers: Abdominal location: upper abdomen, unspecified Qualified Code(s): R10.10 - Upper abdominal pain, unspecified (4) Alcoholic cirrhosis of liver without ascites Current Visit: No Status: Chronic Assessment and plan: Chronic, patient follows with gastroenterology. Continue to monitor (5) Gastric ulcer Current Visit: No Status: Chronic Assessment and plan: Patient recently had an EGD a few days prior to her admission to evaluate gastric ulcers. She is on IV Nexium at home twice a day via her port access which is administered by her home health nurse. Continue IV Nexium twice a day Continue to monitor Qualifiers: Gastric ulcer chronicity: chronic Gastric ulcer complication status: without hemorrhage or perforation Qualified Code(s): K25.7 - Chronic gastric ulcer without hemorrhage or perforation (6) History of Flynn-en-Y gastric bypass Current Visit: Yes Status: Chronic Assessment and plan: Has a long complicated history of gastric bypass with multiple complications. She has been following with gastroenterology regularly. He receives TPN due to poor nutritional absorption. I discussed this with pharmacy who recommended patient be started on dextrose 10% in water at 50 mL per hour, and hold off on starting TPN until nutrition consult could be placed. Follow-up nutrition consult recommendations (7) DVT prophylaxis Current Visit: No Status: Acute Assessment and plan: SCDs - Time Spent With Patient Total time spent is greater than 50% in coordination of care (as documented) at patient's floor/unit and/or counseling patient: Greater than 35 minutes
[2018-03-22 05:47] LABS: BUN/Creatinine Ratio 18 (6-26); Blood Urea Nitrogen 7 mg/dL (6-20); Calcium 8.4 mg/dL (8.6-10.3); Carbon Dioxide 27 mEq/L (23-29); Chloride 104 mEq/L (98-107); Glucose 105 mg/dL (70-105); Osmolality,Calculated 282 (280-300); Potassium 3.7 mEq/L (3.5-5.1); Sodium 137 mEq/L (136-145); eGFR For Non-African Americans > 60 (> 60)
[2018-03-22] MEDS ORDERED: Isovue-370 500 ML INFUS..BTL IV ONE (07:05)
[2018-03-22] MEDS ORDERED: Piperacillin/Tazobactam 3.375 GM in 0.9 % Sodium Chloride Mini Bag 100 ML IVPB SCH (08:00)
[2018-03-22] MEDS: Nicotine 21 MG PATCH.TD24 TD SCH (09:11)
--- NOTE | 2018-03-22 10:55 | Gastroenterology Consult Note ---
<Oj Lees - Last Filed: 03/22/18 10:52> Date of Encounter: 03/22/18 Time of Encounter: 09:40 - Assessment and plan (1) Constipation Current Visit: No Status: Acute Assessment and plan: No obstruction noted on CT. Start Golytely 500 ml every 8 hours until BM. Start daily fiber supplement. Qualifiers: Constipation type: slow transit constipation Qualified Code(s): K59.01 - Slow transit constipation (2) Gastric ulcer Current Visit: No Status: Chronic Assessment and plan: Last EGD 03/12/2018 with 3cm anastomotic gastric ulcer. Continue PPI and start Carafate. Qualifiers: Gastric ulcer chronicity: chronic Gastric ulcer complication status: without hemorrhage or perforation Qualified Code(s): K25.7 - Chronic gastric ulcer without hemorrhage or perforation (3) Hepatic steatosis Current Visit: No Status: Chronic Assessment and plan: Check liver fibrosis. (4) Elevated alkaline phosphatase level Current Visit: Yes Status: Acute Assessment and plan: Alk phos elevated, check liver US and alk phos isoenzyme. (5) History of Flynn-en-Y gastric bypass Current Visit: Yes Status: Chronic - Time Spent With Patient Total time spent is greater than 50% in coordination of care (as documented) at patient's floor/unit and/or counseling patient: GI History of Present Illness - Data of Consult Patient: known to practice within the last 3 years Consult date: 03/22/18 Requesting Physician: Mago Callejas MD - Consult Narrative Reason for consult: Gastric ulcers, constipation History of present illness: Ms. Abdi is a 42 year old female with PMHx of gastric ulcer, bipolar disorder, opiate abuse, alcohol abuse, pancreatitis, gastric bypass who presented to the ED with abdominal pain and constipation. She states her last BM was on . She normally has 2-3 loose BMs daily. She also recently was treated outpatient for bacterial pneumonia after going to an urgent care. CT A/P with showed a persistent area of lung consolidation and the previously noted right lower lobe pneumonia with peripheral low attenuation fluid collection thick enhancing rim, lung abscess with possible small empyema was suspected as a complication of her pneumonia, diffuse fatty liver, moderate stool load. Procedures: EGD 03/12/2018 Dr. Manley: Non-bleeding gastric anastomotic ulcer 3cm in largest dimension. EGD 12/19/2017 Dr. Manley: Non-bleeding deep cratered anastomotic ulcers with no stigmata of bleeding, involving about 60% of circumference of anastomosis. EGD 10/04/2017 Dr. Manley: Non-bleeding gastric ulcer at anastomosis, moderate chronic inflammation. EGD 05/14/2016 Dr. Becker: Plastic water bottle cap in esophagus. EGD 10/2014 superficial ulcer at anastomosis, stomach with pseudo-diverticuli. EGD 11/2012 gastric ulcer, anastomosis ulcer,biopsy negative EGD 08/2012 anastomosis ulcer Colonoscopy 07/2012 colon redundant/tortuous EGD 02/2012 esophagitis at GE junction NSAID: None Anticoagulation: None Past Med Surg Social Fam HX - Past Medical History Medical history: arthritis, cirrhosis, other Additional medical history: wpw, Psychiatric history: anxiety, bipolar, depression, prior suicide attempt - Past Surgical History Surgical History: appendectomy, cholecystectomy, herniorrhaphy, hysterectomy, other, bariatric surgery Additional surgical history: colon resection,hernia x6,gastric bypass,bowel obs truction, implanted port - Social History Smoking Status: Current every day smoker Packs per day: 1.5 Smokeless Tobacco Status: No Alcohol use: none Drug use: none - Family History Father Adopted: No Living Status: Still Living Hx Family Cardiac Disorders: No Hx Family Respiratory Disorders: No Hx Family Cancer: No Hx Family GI Disorders: No Hx Family Endocrine Disorder: No Hx Family Neuromuscular Disorders: No Hx Family Neurologic Disorders: No Hx Family HEENT Disorders: No Hx Family Autoimmune Disorders: No Grandfather Living Status: Hx Family Cardiac Disorders: Yes ([place]) Maternal Grandmother Living Status: Still Living Hx Family Cancer: Yes (Lung) Sister Living Status: Still Living Hx Family Cancer: Yes (Ovarian) Mother Adopted: No Living Status: Still Living Hx Family Cardiac Disorders: Yes Hx Family Respiratory Disorders: No Hx Family Cancer: No Hx Family GI Disorders: No Hx Family Endocrine Disorder: No Hx Family Neuromuscular Disorders: No Hx Family Neurologic Disorders: No Hx Family HEENT Disorders: No Hx Family Autoimmune Disorders: No - Gastrointestinal Gastrointestinal: Present: as per HPI - Constitutional Constitutional: as per HPI - EENT Eyes: as per HPI Ears: Present: as per HPI Nose, mouth and throat: Present: as per HPI - Cardiovascular Cardiovascular ROS: Present: as per HPI - Respiratory Respiratory IM: Present: as per HPI - Genitourinary Genitourinary: Absent: change in color, Urinary frequency - Neurological ROS Neurological GI: Present: as per HPI - Hematologic/Lymphatic Hematologic/Lymphatic pediatric: Present: as per HPI - Musculoskeletal Musculoskeletal ROS GI: Present: as per HPI - Integumentary Integumentary GI: Present: as per HPI - Psychiatric ROS Psychiatric GI: Present: as per HPI - Endocrine Endocrine IM: Present: as per HPI - Constitutional Vitals: Temp Pulse Resp BP Pulse Ox 98.1 F 87 16 95/64 97 03/22/18 07:44 03/22/18 07:44 03/22/18 07:44 03/22/18 07:44 03/22/18 07:44 General appearance: Present: cooperative, A&O X 3, no acute distress, answers questions appropriately - Head Head exam: Present: atraumatic, normocephalic - Eye Eye exam: Present: normal appearance, sclera anicteric - ENT ENT exam: Present: mucous membranes dry - Neck Neck exam general surgery: Present: normal inspection, trachea midline - Respiratory Respiratory exam: Present: CTAB - Cardiovascular Cardiovascular exam: Present: RRR, +S1, +S2 - GI/Abdominal GI/Abdominal exam: Present: soft, tenderness (mild upper abdominal tenderness with palpation), no peritoneal signs. Absent: distended, firm, guarding - Rectal Rectal exam: Present: deferred - Extremities Exam Extremities exam: Present: warm - Neurological Exam Neurological exam: Present: no focal deficits - Psychiatric Psychiatric exam: Present: normal affect, normal mood - Skin Skin exam: Present: dry, intact, normal color, warm Results - Labs CBC & Chem 7: 03/22/18 04:00 03/22/18 04:00 Labs: Last Result Calcium 8.4 mg/dL (8.6-10.3) L 03/22/18 04:00 Entire Visit Hgb 11.2 g/dL (11.5-15.4) L 03/22/18 04:00 Hct 34.3 % (35.3-44.9) L 03/22/18 04:00 Total Bilirubin 0.4 mg/dL (0.3-1.0) 03/21/18 18:54 AST 17 Units/L (13-39) 03/21/18 18:54 ALT 9 Units/L (7-52) 03/21/18 18:54 Lipase < 3 Units/L (11-82) L 03/21/18 18:54 - Impressions Impressions Abdomen/Pelvis CT 03/21/18 18:04 IMPRESSION: In the area of the previously noted right lower lobe pneumonia, there is a persistent area of lung consolidation with peripheral low-attenuation fluid collection with a thick enhancing rim. Lung abscess with possible small empyema suspected as a complication of the pneumonia. Rounded pleural and parenchymal opacity in the lingula suspicious for rounded atelectasis. Both findings are new from the CT abdomen of 12/18/2017. Follow-up chest CT is recommended. Diffuse fatty infiltration of the liver. Unchanged pancreatic atrophy. Moderate stool load suggests constipation. Thickening of the wall of the urinary bladder. Under distention may be contributory. Correlate for possible cystitis. D/ / Bobby Ventura MD / Bobby Ventura MD Interpreting Provider: Bobby Ventura MD Consult Discharge Plan - Plan Referrals: NONE,PCP [Primary Care Provider] - <Emanuel Manley - Last Filed: 03/22/18 12:29> Date of Encounter: 03/22/18 - Time Spent With Patient Total time spent is greater than 50% in coordination of care (as documented) at patient's floor/unit and/or counseling patient: GI History of Present Illness - Data of Consult Requesting Physician: Mago Callejas MD - Consult Narrative History of present illness: Ms. Abdi is a 42 year old female - Constitutional Vitals: Temp Pulse Resp BP Pulse Ox 98 F 89 17 105/69 98 03/22/18 11:32 03/22/18 11:32 03/22/18 11:32 03/22/18 11:32 03/22/18 11:32 Results - Labs CBC & Chem 7: 03/22/18 04:00 03/22/18 04:00 Labs: Last Result Calcium 8.4 mg/dL (8.6-10.3) L 03/22/18 04:00 Entire Visit Hgb 11.2 g/dL (11.5-15.4) L 03/22/18 04:00 Hct 34.3 % (35.3-44.9) L 03/22/18 04:00 Total Bilirubin 0.4 mg/dL (0.3-1.0) 03/21/18 18:54 AST 17 Units/L (13-39) 03/21/18 18:54 ALT 9 Units/L (7-52) 03/21/18 18:54 Lipase < 3 Units/L (11-82) L 03/21/18 18:54 - Impressions Impressions Abdomen/Pelvis CT 03/21/18 18:04 IMPRESSION: In the area of the previously noted right lower lobe pneumonia, there is a persistent area of lung consolidation with peripheral low-attenuation fluid collection with a thick enhancing rim. Lung abscess with possible small empyema suspected as a complication of the pneumonia. Rounded pleural and parenchymal opacity in the lingula suspicious for rounded atelectasis. Both findings are new from the CT abdomen of 12/18/2017. Follow-up chest CT is recommended. Diffuse fatty infiltration of the liver. Unchanged pancreatic atrophy. Moderate stool load suggests constipation. Thickening of the wall of the urinary bladder. Under distention may be contributory. Correlate for possible cystitis. D/ / Bobby Ventura MD / Bobby Ventura MD Interpreting Provider: Bobby Ventura MD - Attending Attestation I have personally performed a face to face evaluation on this patient. I have reviewed and agree with the care plan. History and Exam by me shows: Patient seen patient with a known history of gastric bypass with malnutrition and large anastomotic ulcer is currently on TPN for protein malnutrition. Patient admits to be was because of pneumonia/lung abscess and constipation. Examination patient is alert awake does not seem to be in acute distress. Assessment: Patient with pneumonia/lung abscess management as per pulmonary. #2; constipation and patient will be given GoLYTELY to see whether that will stim ulate her bowels as usually she has diarrhea.
[2018-03-22] MEDS ORDERED: SODIUM CHLORIDE/NAHCO3/KCL/PEG 4,000 ML SOLN.RECON PO ONE (11:00)
[2018-03-22] MEDS ORDERED: D10% in Water 500 ML IVC PRN ×2 (11:03→11:10)
--- NOTE | 2018-03-22 14:23 | Pulmonology Consult Note ---
<Jasiel Landon S - Last Filed: 03/22/18 15:58> Date of Encounter: 03/22/18 Time of Encounter: 14:22 Assessment and Plan (1) Empyema lung Current Visit: Yes Status: Acute Secondary to pneumonia - pt presented for constipation and abd pain, was found to have consolidation on CT scan - was recently treated as an outpatient with levaquin x 10days CT scan on 03/22 - Consolidation in the right lower lobe laterally with an adjacent fluid collection measuring 5 x 1.1 x 1.1 cm. This appears to be loculated in the pleural space suggesting an empyema. - Lymph nodes seen in the mediastinum most likely are reactive Clinically the pt is stable, doesn't meet SIRS criteria - denies productive sputum production, fever, cough, SOB Plan: - blood cx pending - MRSA swab pending - continue to monitor cbc/bmp - spoke with attending and interventional radiologist decided on not draining the abscess - continue zosyn and vancomycin day 1 - pt will need a prolonged course of abx, most likely use augmentin PO when able to transition - follow up CT scan in 3-4wks - follow up in the pulmonology clinic 3-4wks after d/c (2) Lung abscess Current Visit: Yes Status: Acute See plan as above. Qualifiers: Pulmonary abscess pneumonia presence: with pneumonia Laterality: left Lung location: unspecified part of lung Qualified Code(s): J85.1 - Abscess of lung with pneumonia (3) Tobacco abuse Current Visit: No Status: Chronic Smokes about 1ppd - counsled (4) Pneumonia Current Visit: Yes Status: Acute See plan as above. Qualifiers: Pneumonia type: due to unspecified organism Laterality: left Lung location: unspecified part of lung Qualified Code(s): J18.9 - Pneumonia, unspecified organism (5) History of pulmonary embolism Current Visit: Yes Status: Acute Follow up with heme onc outpatient - appt made - scd's for DVT prophylaxis History of Present Illness Consult date: 03/22/18 Requesting physician: Kelly Muro Reason for consult: abnormal CXR/CT, other (empyema) Chief complaint: "constipation" History of present illness: Ms. Abdi is a 42yo female with PMH of cirrhosis, arthritis, WPW s/p ablation, hx of bilateral PE, and hx of gastric bypass sx when she was a teenager. 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 She presented today to the hospital because of constipation. She was told by Dr Manley to come in for workup and further evaluation. She was recently treated as an outpatient for pneumonia with levaquin x 10days after having right sided chest pain and a pneumonia was found. She had a CT chest which showed Consolidation in the right lower lobe laterally with an adjacent fluid collection measuring 5 x 1.1 x 1.1 cm. This appears to be loculated in the pleural space suggesting an empyema. The patient is seen at bedside and is without complaint or concern. She states she is anxious about her health but otherwise she is doing okay. Past Med Surg Social Fam HX - Past Medical History Medical history: arthritis, cirrhosis, other Additional medical history: wpw, Psychiatric history: anxiety, bipolar, depression, prior suicide attempt - Past Surgical History Surgical History: appendectomy, cholecystectomy, herniorrhaphy, hysterectomy, other, bariatric surgery Additional surgical history: colon resection,hernia x6,gastric bypass,bowel obstruction, implanted port - Social History Smoking Status: Current every day smoker Packs per day: 1.5 Smokeless Tobacco Status: No Alcohol use: none Drug use: none - Family History Father Adopted: No Living Status: Still Living Hx Family Cardiac Disorders: No Hx Family Respiratory Disorders: No Hx Family Cancer: No Hx Family GI Disorders: No Hx Family Endocrine Disorder: No Hx Family Neuromuscular Disorders: No Hx Family Neurologic Disorders: No Hx Family HEENT Disorders: No Hx Family Autoimmune Disorders: No Grandfather Living Status: Hx Family Cardiac Disorders: Yes ([place]) Maternal Grandmother Living Status: Still Living Hx Family Cancer: Yes (Lung) Sister Living Status: Still Living Hx Family Cancer: Yes (Ovarian) Mother Adopted: No Living Status: Still Living Hx Family Cardiac Disorders: Yes Hx Family Respiratory Disorders: No Hx Family Cancer: No Hx Family GI Disorders: No Hx Family Endocrine Disorder: No Hx Family Neuromuscular Disorders: No Hx Family Neurologic Disorders: No Hx Family HEENT Disorders: No Hx Family Autoimmune Disorders: No Medications and Allergies Cyanocobalamin (B-12) [Vitamin B12] 1,000 mcg IM QMONTH 12/18/17 [History] Ergocalciferol (VITAMIN D2) [Vitamin D2] 50,000 unit PO Q14D 12/18/17 [History] Furosemide [Lasix] 20 - 40 mg PO DAILY 12/18/17 [History] Lipase/Protease/Amylase [Creon Dr 36,000 Units Capsule] 36,000 units PO TIDAC 12/18/17 [History] OLANZapine [Zyprexa] 20 mg PO HS 12/18/17 [History] Sucralfate [Carafate] 1 gm PO QID 12/18/17 [History] Vilazodone HCl [Viibryd] 40 mg PO DAILY 12/18/17 [History] Buprenorphine HCl 8 mg SL BID 03/22/18 [History] Clinimix E 5%-15% SOLUTION [Clinimix E 5%-15% Solution] 1,540 ml IV HS 03/22/18 [History] Dextroamphetamine/Amphetamine [Adderall 20 mg Tablet] 20 mg PO BID 03/22/18 [History] Esomeprazole Sodium [Nexium I.v] 40 mg IV BID 03/22/18 [History] Spironolactone [Aldactone] 50 - 100 mg PO DAILY 03/22/18 [History] raNITIdine HCl [Zantac] 300 mg PO BID 03/22/18 [History] Allergy/AdvReac Type Severity Reaction Status Date / Time cephalexin Allergy Rash Verified 07/18/17 15:36 clindamycin Allergy Rash Verified 07/18/17 15:36 [id number] [From Nubain] AdvReac "didn't Verified 07/18/17 15:[address] it made me feel" All Systems: The remainder of the systems were reviewed and are negative - Constitutional Constitutional: fatigue, lethargy, no chills, no fever(s) - EENT Nose, mouth and throat: no dysphagia, no headache(s) - Cardiovascular Cardiovascular: no chest pain at rest, no chest pain with activity, no dyspnea, no dyspnea on exertion, no edema, no palpitations - Respiratory Respiratory: no cough, no dyspnea on exertion - Gastrointestinal Gastrointestinal: abdominal pain, vomiting, no nausea - Musculoskeletal Musculoskeletal: weakness, myalgias - Neurological Neurological: focal weakness, no dizziness, no headache(s) Physical Examination Vital Signs: Vital Signs, Last 4 Hours Temp Pulse Resp BP Pulse Ox 03/22/18 11:32 98 F 89 17 105/69 98 General appearance: no acute distress Eyes: nonicteric ENT: oropharynx moist Mallampati (class): 2 Neck: supple Effort: normal Inspection: normal Auscultation: bilateral: diminished breath sounds Cardiovascular: regular rate and rhythm Gastrointestinal: normoactive bowel sounds Integumentary: normal Extremities: no cyanosis normal mental status, non-focal exam mood appropriate, affect normal Results - Laboratory Findings CBC and BMP: 03/22/18 04:00 03/22/18 04:00 Abnormal lab findings: Abnormal lab results Hgb 11.2 g/dL (11.5-15.4) L 03/22/18 04:00 Hct 34.3 % (35.3-44.9) L 03/22/18 04:00 MCV 82.5 fL (83.0-100.0) L 03/22/18 04:00 MCH 26.9 pg (28.0-33.3) L 03/22/18 04:00 RDW 17.8 % (11.5-14.5) H 03/22/18 04:00 MPV 8.8 fL (9.4-12.4) L 03/22/18 04:00 Creatinine 0.38 mg/dL (0.60-1.20) L 03/22/18 04:00 Calcium 8.4 mg/dL (8.6-10.3) L 03/22/18 04:00 Alkaline Phosphatase 137 Units/L (34-104) H 03/21/18 18:54 Albumin 3.1 g/dL (3.5-5.7) L 03/21/18 18:54 Albumin/Globulin Ratio 0.9 (1.1-2.2) L 03/21/18 18:54 Lipase < 3 Units/L (11-82) L 03/21/18 18:54 - Microbiology Findings Microbiology Findings: Microbiology, Last 48 Hours 03/21/18 22:48 Blood Culture - Preliminary Peripheral Venipuncture Culture is incubating and being continuously monitored for growth. Final report to follow. 03/21/18 22:48 Blood Culture - Preliminary Peripheral Venipuncture Culture is incubating and being continuously monitored for growth. Final report to follow. - Clinical Findings Intake & Output: Intake & Output 03/21/18 03/22/18 03/22/18 23:59 07:59 15:59 Intake Total 0 / 0 0 / 0 Output Total 1050 / 1050 500 / 500 Balance -1050 / -1050 -500 / -500 Weight 54.431 kg 56.1 kg Consult Discharge Plan - Plan Referrals: NONE,PCP [Primary Care Provider] - <Jhon Moeller - Last Filed: 03/22/18 16:04> Date of Encounter: 03/22/18 All Systems: The remainder of the systems were reviewed and are negative Results - Laboratory Findings CBC and BMP: 03/22/18 04:00 03/22/18 04:00 Abnormal lab findings: Abnormal lab results Hgb 11.2 g/dL (11.5-15.4) L 03/22/18 04:00 Hct 34.3 % (35.3-44.9) L 03/22/18 04:00 MCV 82.5 fL (83.0-100.0) L 03/22/18 04:00 MCH 26.9 pg (28.0-33.3) L 03/22/18 04:00 RDW 17.8 % (11.5-14.5) H 03/22/18 04:00 MPV 8.8 fL (9.4-12.4) L 03/22/18 04:00 Creatinine 0.38 mg/dL (0.60-1.20) L 03/22/18 04:00 Calcium 8.4 mg/dL (8.6-10.3) L 03/22/18 04:00 Alkaline Phosphatase 137 Units/L (34-104) H 03/21/18 18:54 Albumin 3.1 g/dL (3.5-5.7) L 03/21/18 18:54 Albumin/Globulin Ratio 0.9 (1.1-2.2) L 03/21/18 18:54 Lipase < 3 Units/L (11-82) L 03/21/18 18:54 - Microbiology Findings Microbiology Findings: Microbiology, Last 48 Hours 03/21/18 22:48 Blood Culture - Preliminary Peripheral Venipuncture Culture is incubating and being continuously monitored for growth. Final report to follow. 03/21/18 22:48 Blood Culture - Preliminary Peripheral Venipuncture Culture is incubating and being continuously monitored for growth. Final report to follow. - Clinical Findings Intake & Output: Intake & Output 03/22/18 03/22/18 03/22/18 07:59 15:59 23:59 Intake Total 0 / 0 0 / 0 Output Total 1050 / 1050 500 / 500 Balance -1050 / -1050 -500 / -500 Weight 56.1 kg - Attending Attestation I examined this patient and my medical decision-making was reviewed with the Resident Physician. I agree with the documented findings, disposition and treatment plan as described except to the extent set forth below. We independently had [id number] contact with the patient Patient seen and examined at bedside Labs, radiology, chart personally reviewed. Impression: 42-year-old woman presenting with incidentally found pleural fluid loculated collection with surrounding infiltrate after receiving outpatient antibiotic therapy for pneumonia earlier this month. Outside of some pleuritic chest pain patient is relatively asymptomatic and does not know features of the systemic infection at this point. Although the fluid collection could be amenable to IR drainage (I spoke directly [id number] with the interventional radiology attending physician to discuss this matter) given the small size and clinical stability I doubt that this would add any additional benefit over systemic antimicrobials for a prolonged period. She has some history of venous thromboembolism and has increased risk of clotting had been following with hematology in the past I suspect she would benefit from long-term anticoa gulation given acute gastric ulcers she is clearly at high risk of bleeding. Recs: - I agree with IV antibiotics including gram-positive and anaerobic coverage in this case the Zosyn is acceptable - I suspect that we could continue IV antibiotics while she is inpatient and could de-escalate to Augmentin to complete a 2-3 week course at which point we can repeat her CT and determine if she needs further antimicrobial therapy or if there is radiographic resolution. -Recommend a formal hematology consult as outpatient for further monitoring of her hypercoagulable state Thank you for this consultation pulmonary will continue to follow
[2018-03-22] MEDS ORDERED: Clinimix E 5%-15% SOLUTION 2,000 ML with MVI, adult with vitamin K 10 ML, Trace Eleme... IVC SCH (17:00)
[2018-03-22] MEDS: (Vilazodone Hcl [Viibryd] 40 MG) PO SCH (17:32)
[2018-03-22] MEDS: Piperacillin/Tazobactam 3.375 GM in 0.9 % Sodium Chloride Mini Bag 100 ML IVPB SCH (19:32)
[2018-03-22] MEDS: DEXTROAMPHETAMINE PO SCH (21:04)
[2018-03-22] MEDS: AMPHETAMINE PO SCH (21:04)
[2018-03-22] MEDS: OLANZapine 10 MG TAB.RAPDIS PO SCH (21:07)
[2018-03-22] MEDS: *HR* Buprenorphine HCl 8 MG TAB.SUBL SL SCH (21:07)
[2018-03-22] MEDS: Famotidine 20 MG TABLET PO SCH (21:07)
[2018-03-23] MEDS: Insulin LISPRO 300 UNITS/3 ML VIAL SQ SCH ×6 (00:12→20:23)
[2018-03-23] MEDS: Piperacillin/Tazobactam 3.375 GM in 0.9 % Sodium Chloride Mini Bag 100 ML IVPB SCH ×3 (03:32→18:33)
[2018-03-23 03:54] LABS: VBG Ionized Calcium 1.11 mmol/L (1.15-1.35)
[2018-03-23 05:43] LABS: Alanine Aminotransferase 8 Units/L (7-52); Albumin 2.5 g/dL (3.5-5.7); Albumin/Globulin Ratio 0.9 (1.1-2.2); Alkaline Phosphatase 104 Units/L (34-104); Aspartate Amino Transferase 18 Units/L (13-39); BUN/Creatinine Ratio 19 (6-26); Bilirubin,Total 0.2 mg/dL (0.3-1.0); Blood Urea Nitrogen 6 mg/dL (6-20); Calcium 7.6 mg/dL (8.6-10.3); Carbon Dioxide 27 mEq/L (23-29); Chloride 111 mEq/L (98-107); Globulin 2.8 g/dL (2.4-3.5); Glucose 104 mg/dL (70-105); Magnesium 1.7 mg/dL (1.6-2.6); Osmolality,Calculated 290 (280-300); Potassium 3.9 mEq/L (3.5-5.1); Sodium 141 mEq/L (136-145); Total Protein 5.3 g/dL (6.4-8.9); eGFR For Non-African Americans > 60 (> 60)
[2018-03-23] MEDS: Pantoprazole 40 MG VIAL IVP SCH ×2 (05:43→17:50)
--- NOTE | 2018-03-23 06:52 | Pulmonology Progress Note ---
Date of Encounter: 03/23/18 Time of Encounter: 06:52 Assessment and Plan (1) Empyema lung Current Visit: Yes Status: Acute Patient with recent history of pneumonia treating the outpatient setting and somewhat incidentally the 5 cm loculated effusion on the right which was concerning for empyema was discovered. She has some sweating at night and pleuritic chest pain as her only symptomatology but certainly no systemic evidence of infection no white count fevers etc. Although aspiration is possible given the possibly of a fluid collection I suspect that this intervention is necessary and she will recover with a prolonged antibiotic regimen I agree with IV antibiotics for 48 hours and they can be transitioned to likely by mouth Augmentin to complete a 2 to 3-week course she will need follow-up in pulmonary clinic with radiographic evaluation prior to termination of antibiotics Radiographically there is no improvement in the empyema then we would discuss drainage at that time Please call with questions Subjective Principal diagnosis: Empyema Interval history: Her abdomen is feeling a lot better she is actually able to take broth today. Still little bit of the pleuritic chest pain on the right when she takes a deep breath otherwise remains hemodynamically stable and afebrile denies any other complaints from a respiratory standpoint Objective PUL Vital signs: Last Vital Signs Temp 98.0 F 03/23/18 03:35 Pulse 82 03/23/18 03:35 Resp 16 03/23/18 03:35 BP 103/70 03/23/18 03:35 Pulse Ox 96 03/23/18 03:35 General appearance: no acute distress, other (Chronically ill-appearing) Eyes: nonicteric ENT: oropharynx moist Neck: supple Effort: normal Auscultation: right: diminished breath sounds, bilateral: clear Cardiovascular: regular rate and rhythm Gastrointestinal: soft, other (Mild tenderness to deep palpation in the epigastrium) Integumentary: other (Right port IV site without evidence of infection) Extremities: no cyanosis, no edema, no clubbing Musculoskeletal: no deformities normal mental status, non-focal exam mood appropriate Results - Laboratory Findings CBC and BMP: 03/22/18 04:00 03/23/18 03:25 Abnormal lab findings: Abnormal lab results Hgb 11.2 g/dL (11.5-15.4) L 03/22/18 04:00 Hct 34.3 % (35.3-44.9) L 03/22/18 04:00 MCV 82.5 fL (83.0-100.0) L 03/22/18 04:00 MCH 26.9 pg (28.0-33.3) L 03/22/18 04:00 RDW 17.8 % (11.5-14.5) H 03/22/18 04:00 MPV 8.8 fL (9.4-12.4) L 03/22/18 04:00 Chloride 111 mEq/L (98-107) H 03/23/18 03:25 Creatinine 0.32 mg/dL (0.60-1.20) L 03/23/18 03:25 Calcium 7.6 mg/dL (8.6-10.3) L 03/23/18 03:25 Venous Ioniz Calcium 1.11 mmol/L (1.15-1.35) L 03/23/18 03:35 Total Bilirubin 0.2 mg/dL (0.3-1.0) L 03/23/18 03:25 Serum Total Protein 5.3 g/dL (6.4-8.9) L 03/23/18 03:25 Albumin 2.5 g/dL (3.5-5.7) L 03/23/18 03:25 Albumin/Globulin Ratio 0.9 (1.1-2.2) L 03/23/18 03:25 Lipase < 3 Units/L (11-82) L 03/21/18 18:54 - Microbiology Findings Microbiology Findings: Microbiology, Last 48 Hours 03/21/18 22:48 Blood Culture - Preliminary Peripheral Venipuncture Culture is incubating and being continuously monitored for growth. Final report to follow. 03/21/18 22:48 Blood Culture - Preliminary Peripheral Venipuncture Culture is incubating and being continuously deisy tored for growth. Final report to follow. - Clinical Findings Intake & Output: Intake & Output 03/22/18 03/22/18 03/23/18 15:59 23:59 07:59 Intake Total 100 / 100 580 / 580 480 / 480 Output Total 500 / 500 1000 / 1000 Balance -400 / -400 -420 / -420 480 / 480 Weight 55.1 kg Consult Discharge Plan - Plan Referrals: NONE,PCP [Primary Care Provider] -
[2018-03-23] MEDS: *HR* Buprenorphine HCl 8 MG TAB.SUBL SL SCH ×2 (09:32→20:17)
[2018-03-23] MEDS: Nicotine 21 MG PATCH.TD24 TD SCH (09:32)
[2018-03-23] MEDS: Famotidine 20 MG TABLET PO SCH ×2 (09:32→20:17)
[2018-03-23] MEDS: (Vilazodone Hcl [Viibryd] 40 MG) PO SCH (09:34)
[2018-03-23] MEDS: DEXTROAMPHETAMINE PO SCH ×2 (09:34→20:16)
[2018-03-23] MEDS: AMPHETAMINE PO SCH ×2 (09:34→20:16)
[2018-03-23] MEDS ORDERED: Clinimix E 5%-15% SOLUTION 2,000 ML with MVI, adult with vitamin K 10 ML, Trace Eleme... IVC SCH (17:00)
[2018-03-23] MEDS: OLANZapine 10 MG TAB.RAPDIS PO SCH (20:17)
--- NOTE | 2018-03-23 23:58 | Internal Med Progress Note ---
Hospitalist Progress Note - Encounter Date of Encounter: 03/23/18 Time of Encounter: 12:30 - Subjective Interval History: Ms. Abdi is a 42 year old female. She presented to the emergency room for abdominal pain and constipation where her baseline is 2 to 3 loose bowels a day. She has a known history of gastric bypass surgery about 20 years ago, with multiple complications since then including bowel obstructions, pancreatitis and surgical resection. She also has a history of ulcers and cirrhosis, follows with gastroenterology regularly. Recently whe was treated for a pneumonia as outpt. Her CT showed possible lung abscess and empyem in the are of the recent PNA and pulm was consulted who advised 48 hrs of abx and then dc on PO augmentin for 2 to 3 weeks with follow up. Pt seen and examined today. Her constipation is relived without having to use golytely. She is extemely pleasant. She denies any pain. No SOB. - Exam Vitals: Temp Pulse Resp BP Pulse Ox 98.5 F 94 17 96/56 96 03/23/18 20:25 03/23/18 20:25 03/23/18 20:25 03/23/18 20:25 03/23/18 20:25 Exam: General appearance: Present: cooperative, mild distress, A&O X 3, pleasant, answers questions appropriately Exam: As above - Head Head exam: Present: normal inspection - Eye Eye exam: Present: EOMI, normal appearance - Neck Neck exam general surgery: Absent: tenderness - Respiratory Respiratory exam: Present: CTAB. Absent: chest wall tenderness, rales, respiratory distress, wheezes - Cardiovascular Cardiovascular exam: Present: RRR. Absent: diastolic murmur, systolic murmur - GI/Abdominal GI/Abdominal exam: Present: normal bowel sounds, soft, tenderness Additional comments: No Epigastric tenderness - Extremities Exam Extremities exam: Present: warm, radial pulses palpable and symmetrical. Absent: calf tenderness, pedal edema, tenderness - Neurological Exam Neurological exam: Present: no focal deficits, strengths equal and symetr throughout. Absent: motor sensory deficit, facial droop, speech deficit - Skin Skin exam: Present: dry, normal color, warm - Assessment and Plan (1) Empyema lung Current Visit: Yes Status: Acute Assessment and Plan: Abscess at location of previous pneumonia site. Patient was treated outpatient with Levaquin. There is also parenchymal opacity in the lingula. Per pulm cont with IV antibiotics for 48 hours and then can be transitioned to likely by mouth Augmentin to complete a 2 to 3-week course. She will need to follow-up in pulmonary clinic with radiographic evaluation prior to termination of antibiotics. If radiographically there is no improvement in the empyema then pulm would discuss drainage at that time Qualifiers: Pulmonary abscess pneumonia presence: without pneumonia Laterality: right Lung location: lower lobe of lung Qualified Code(s): J85.2 - Abscess of lung without pneumonia (2) Constipation Current Visit: No Status: Acute Assessment and plan: Resolved now. Continue to monitor Qualifiers: Constipation type: slow transit constipation Qualified Code(s): K59.01 - Slow transit constipation (3) Abdominal pain Current Visit: Yes Status: Chronic Assessment and plan: Secondary to constipation. Patient normally has loose stools. CT scan of abdomen did not reveal bowel obstruction. Plan as above Qualifiers: Abdominal location: upper abdomen, unspecified Qualified Code(s): R10.10 - Upper abdominal pain, unspecified (4) Alcoholic cirrhosis of liver without ascites Current Visit: No Status: Chronic Assessment and plan: Chronic, patient follows with gastroenterology. Continue to monitor (5) Gastric ulcer Current Visit: No Status: Chronic Assessment and plan: Patient recently had an EGD a few days prior to her admission to evaluate gastric ulcers. She is on IV Nexium at home twice a day via her port access which is administered by her home health nurse. Continue IV Nexium twice a day Continue to monitor Qualifiers: Gastric ulcer chronicity: chronic Gastric ulcer complication status: without hemorrhage or perforation Qualified Code(s): K25.7 - Chronic gastric ulcer without hemorrhage or perforation (6) History of Flynn-en-Y gastric bypass Current Visit: Yes Status: Chronic Assessment and plan: Has a long complicated history of gastric bypass with multiple complications. She has been following with gastroenterology regularly. He receives TPN due to poor nutritional absorption. I discussed this with pharmacy who recommended patient be started on dextrose 10% in water at 50 mL per hour, and hold off on starting TPN until nutrition consult could be placed. Follow-up nutrition consult recommendations (7) DVT prophylaxis Current Visit: No Status: Acute Assessment and plan: SCDs - Time Spent with Patient Total time spent is greater than 50% in coordination of care (as documented) at patient's floor/unit and/or counseling patient: 25 - 35 minutes Internal Medicine: Result - Labs CBC & Chem 7: 03/24/18 03:35 03/24/18 03:35 Labs: BMP 03/23/18 03:25 Sodium 141 Potassium 3.9 Chloride 111 H Carbon Dioxide 27 BUN 6 Creatinine 0.32 L Glucose 104 Calcium 7.6 L Liver Function 03/23/18 Range/Units 03:25 Total Bilirubin 0.2 L (0.3-1.0) mg/dL AST 18 (13-39) Units/L ALT 8 (7-52) Units/L Alkaline Phosphatase 104 (34-104) Units/L Albumin 2.5 L (3.5-5.7) g/dL Consult Discharge Plan - Plan Referrals: NONE,PCP [Primary Care Provider] -
[2018-03-24] MEDS: Insulin LISPRO 300 UNITS/3 ML VIAL SQ SCH ×6 (00:30→21:01)
[2018-03-24] MEDS: Piperacillin/Tazobactam 3.375 GM in 0.9 % Sodium Chloride Mini Bag 100 ML IVPB SCH ×3 (02:49→18:51)
[2018-03-24 04:14] LABS: Hematocrit 31.9 % (35.3-44.9); Hemoglobin 9.8 g/dL (11.5-15.4); Mean Corpuscular HGB Conc 30.7 g/dL (31.6-35.5); Mean Corpuscular Hemoglobin 26.8 pg (28.0-33.3); Mean Corpuscular Volume 87.2 fL (83.0-100.0); Mean Platelet Volume 8.7 fL (9.4-12.4); Platelet Count 301 K/mcL (140-400); Red Blood Count 3.66 M/mcL (3.82-4.97); Red Cell Distribution Width 17.8 % (11.5-14.5)
[2018-03-24 04:35] LABS: BUN/Creatinine Ratio 29 (6-26); Blood Urea Nitrogen 10 mg/dL (6-20); Calcium 7.9 mg/dL (8.6-10.3); Carbon Dioxide 29 mEq/L (23-29); Chloride 114 mEq/L (98-107); Glucose 89 mg/dL (70-105); Magnesium 1.8 mg/dL (1.6-2.6); Osmolality,Calculated 293 (280-300); Phosphorous 3.4 mg/dL (2.7-4.5); Potassium 4.5 mEq/L (3.5-5.1); Sodium 142 mEq/L (136-145); eGFR For Non-African Americans > 60 (> 60)
[2018-03-24] MEDS: Pantoprazole 40 MG VIAL IVP SCH ×2 (05:47→18:51)
--- NOTE | 2018-03-24 07:25 | Pulmonology Progress Note ---
Date of Encounter: 03/24/18 Time of Encounter: 07:25 Assessment and Plan (1) Empyema lung Current Visit: Yes Status: Acute Patient with recent history of pneumonia treating the outpatient setting and somewhat incidentally the 5 cm loculated effusion on the right which was concerning for empyema was discovered. She has some sweating at night and pleuritic chest pain as her only symptomatology but certainly no systemic evidence of infection no white count fevers etc. Although aspiration is possible given the possibly of a fluid collection I suspect that this intervention is necessary and she will recover with a prolonged antibiotic regimen From pulmonary standpoint okay to stop vancomycin and Zosyn with transition to oral Augmentin twice a day dosing to complete a two-week course she will need follow-up in pulmonary in 1-2 weeks to evaluate clinically and will order a CT scan within 3 weeks to make sure that fluid collection is resolving Thank you for this consultation pulmonary will sign off -Please call with questions Subjective Principal diagnosis: Empyema Interval history: She is up by ambulating around the room and feels good. She is anxious to get home Objective PUL Vital signs: Last Vital Signs Temp 98.1 F 03/24/18 05:08 Pulse 86 03/24/18 05:08 Resp 16 03/24/18 05:08 BP 92/51 03/24/18 05:08 Pulse Ox 97 03/24/18 05:08 General appearance: no acute distress Eyes: nonicteric ENT: oropharynx moist Neck: supple Effort: normal Auscultation: bilateral: clear Cardiovascular: regular rate and rhythm Gastrointestinal: tender (Mild tenderness to deep palpation no rigidity or guarding) Integumentary: normal Extremities: no cyanosis, no edema, no clubbing Musculoskeletal: no deformities normal mental status, non-focal exam mood appropriate Results - Laboratory Findings CBC and BMP: 03/24/18 03:35 03/24/18 03:35 Abnormal lab findings: Abnormal lab results RBC 3.66 M/mcL (3.82-4.97) L 03/24/18 03:35 Hgb 9.8 g/dL (11.5-15.4) L 03/24/18 03:35 Hct 31.9 % (35.3-44.9) L 03/24/18 03:35 MCH 26.8 pg (28.0-33.3) L 03/24/18 03:35 MCHC 30.7 g/dL (31.6-35.5) L 03/24/18 03:35 RDW 17.8 % (11.5-14.5) H 03/24/18 03:35 MPV 8.7 fL (9.4-12.4) L 03/24/18 03:35 Chloride 114 mEq/L (98-107) H 03/24/18 03:35 Creatinine 0.35 mg/dL (0.60-1.20) L 03/24/18 03:35 BUN/Creatinine Ratio 29 (6-26) H 03/24/18 03:35 Calcium 7.9 mg/dL (8.6-10.3) L 03/24/18 03:35 Venous Ioniz Calcium 1.11 mmol/L (1.15-1.35) L 03/23/18 03:35 Total Bilirubin 0.2 mg/dL (0.3-1.0) L 03/23/18 03:25 Serum Total Protein 5.3 g/dL (6.4-8.9) L 03/23/18 03:25 Albumin 2.5 g/dL (3.5-5.7) L 03/23/18 03:25 Albumin/Globulin Ratio 0.9 (1.1-2.2) L 03/23/18 03:25 Lipase < 3 Units/L (11-82) L 03/21/18 18:54 - Clinical Findings Intake & Output: Intake & Output 03/23/18 03/23/18 03/24/18 15:59 23:59 07:59 Intake Total 610 / 610 100 / 100 250 / 250 Output Total 0 / 0 Balance 610 / 610 100 / 100 250 / 250 Weight 54.6 kg Consult Discharge Plan - Plan Referrals: NONE,PCP [Primary Care Provider] -
[2018-03-24] MEDS: Famotidine 20 MG TABLET PO SCH ×2 (10:00→19:58)
[2018-03-24] MEDS: Furosemide 20 MG TABLET PO SCH (10:00)
[2018-03-24] MEDS: Nicotine 21 MG PATCH.TD24 TD SCH (10:00)
[2018-03-24] MEDS: *HR* Buprenorphine HCl 8 MG TAB.SUBL SL SCH ×2 (10:00→19:58)
[2018-03-24] MEDS: AMPHETAMINE PO SCH ×2 (10:51→20:12)
[2018-03-24] MEDS: (Vilazodone Hcl [Viibryd] 40 MG) PO SCH (10:51)
[2018-03-24] MEDS: DEXTROAMPHETAMINE PO SCH ×2 (10:51→20:12)
--- NOTE | 2018-03-24 10:53 | Internal Med Progress Note ---
Hospitalist Progress Note - Encounter Date of Encounter: 03/24/18 Time of Encounter: 10:52 - Subjective Interval History: Initial encounter Seen and evaluated at the bedside 42 year-old female with medical history of alcohol-induced liver cirrhosis, severe protein calorie malnutrition, history of Flynn-en-Y gastric bypass, gastric ulcer, with chest port receiving TPN at home and IV PPIs at home Patient was admitted for empyema of the right lung, without any evidence of sepsis, she also has associated suspected R lung abscess Pulmonology is following She has no new complains - Exam Vitals: Temp Pulse Resp BP Pulse Ox 98.1 F 82 16 89/49 98 03/24/18 05:08 03/24/18 07:38 03/24/18 07:38 03/24/18 07:38 03/24/18 07:38 Exam: Vital signs stable Gen: Cachectic, not in any form of distress HEENT;Moist oral mucosa, not pale and icteric, not cyanotic, normal neck inspection Chest: Right chest wall port, clean surrounding REspiratory: Chest is clear to auscultation bilaterally, no added sounds Heart:Heart sounds S1-S2 only, no murmurs gallops or rubs Abdomen: Abdomen is soft and nontender with no palpably enlarged organs, multiple scars from previous surgeries. Bowel sounds present in all quadrants. Extremities:No pedal edema Psych: Affect is normal Skin: No skin rash - Assessment and Plan (1) Empyema lung Current Visit: Yes Status: Acute Assessment and Plan: Pulm eval appreciated No sepsis, chest pain improved Continue a/b, vanc and zosyn Plan is to discharge home with Augmentin per pulm recs Patient is not hypoxic, continue to monitor (2) Anemia Current Visit: Yes Status: Chronic Assessment and Plan: Hb stable at baseline, continue to monitor (3) Bipolar disorder Current Visit: Yes Status: Chronic Assessment and Plan: continue home meds (4) Cirrhosis Current Visit: Yes Status: Chronic Assessment and Plan: stable, continue current meds (5) Depression with anxiety Current Visit: Yes Status: Chronic Assessment and Plan: continue home meds (6) DVT prophylaxis Current Visit: Yes Status: Acute Assessment and Plan: SCDs (7) Gastric ulcer Current Visit: Yes Status: Chronic Assessment and Plan: Continue IV PPI BID (8) Hepatic steatosis Current Visit: Yes Status: Chronic Assessment and Plan: Chronic, stable (9) History of pulmonary embolism Current Visit: Yes Status: Acute (10) History of Flynn-en-Y gastric bypass Current Visit: Yes Status: Chronic (11) Lung abscess Current Visit: Yes Status: Suspected Assessment and Plan: Suspected, continue antiobiotics (12) Malabsorption Current Visit: Yes Status: Chronic Assessment and Plan: Continue TPN (13) Malnutrition Current Visit: Yes Status: Chronic Assessment and Plan: as above (14) Tobacco abuse Current Visit: Yes Status: Chronic Assessment and Plan: counselled on cessation (15) Constipation Current Visit: Yes Status: Resolved Assessment and Plan: resolved advance diet DVT Prophylaxis: SCDs - Time Spent with Patient Total time spent is greater than 50% in coordination of care (as documented) at patient's floor/unit and/or counseling patient: Plan of Care Discussed with: patient Internal Medicine: Result - Labs CBC & Chem 7: 03/24/18 03:35 03/24/18 03:35 Labs: Short CBC 03/24/18 Range/Units 03:35 WBC 5.4 (4.3-11.1) K/mcL Hgb 9.8 L (11.5-15.4) g/dL Hct 31.9 L (35.3-44.9) % Plt Count 301 (140-400) K/mcL BMP 03/24/18 03:35 Sodium 142 Potassium 4.5 Chloride 114 H Carbon Dioxide 29 BUN 10 Creatinine 0.35 L Glucose 89 Calcium 7.9 L Consult Discharge Plan - Plan Referrals: NONE,PCP [Primary Care Provider] - (2) Anemia Qualifiers: Anemia type: other cause Other causes of anemia: chronic disease, other Qualified Code(s): D63.8 - Anemia in other chronic diseases classified elsewhere (3) Bipolar disorder Qualifiers: Active/Remission status: remission status unspecified Qualified Code(s): F31.9 - Bipolar disorder, unspecified (4) Cirrhosis Qualifiers: Hepatic cirrhosis type: alcoholic cirrhosis Ascites presence: without ascites Qualified Code(s): K70.30 - Alcoholic cirrhosis of liver without ascites (7) Gastric ulcer Qualifiers: Gastric ulcer chronicity: chronic Gastric ulcer complication status: without hemorrhage or perforation Qualified Code(s): K25.7 - Chronic gastric ulcer without hemorrhage or perforation (11) Lung abscess Qualifiers: Pulmonary abscess pneumonia presence: without pneumonia Laterality: right Lung location: lower lobe of lung Qualified Code(s): J85.2 - Abscess of lung without pneumonia (12) Malabsorption Qualifiers: Intestinal malabsorption type: unspecified Qualified Code(s): K90.9 - Intestinal malabsorption, unspecified (13) Malnutrition Qualifiers: Malnutrition type: protein-calorie malnutrition Protein-calorie malnutrition severity: unspecified severity Qualified Code(s): E46 - Unspecified protein- calorie malnutrition (15) Constipation Qualifiers: Constipation type: slow transit constipation Qualified Code(s): K59.01 - Slow transit constipation
[2018-03-24] MEDS: Budesonide/Formoterol 160/4.5 1 PUFF INH IH SCH ×2 (11:14→21:58)
[2018-03-24] MEDS ORDERED: Clinimix E 5%-15% SOLUTION 2,000 ML with MVI, adult with vitamin K 10 ML, Trace Eleme... IVC SCH (17:00)
[2018-03-24] MEDS ORDERED: Aminoglycoside Consult 1 EACH MC ONE (17:07)
[2018-03-24] MEDS: OLANZapine 10 MG TAB.RAPDIS PO SCH (19:58)
[2018-03-25] MEDS: Insulin LISPRO 300 UNITS/3 ML VIAL SQ SCH ×3 (00:11→08:08)
[2018-03-25] MEDS: Piperacillin/Tazobactam 3.375 GM in 0.9 % Sodium Chloride Mini Bag 100 ML IVPB SCH (03:19)
[2018-03-25 03:23] LABS: Hematocrit 31.9 % (35.3-44.9); Hemoglobin 9.9 g/dL (11.5-15.4); Mean Corpuscular Volume 87.2 fL (83.0-100.0); Mean Platelet Volume 8.6 fL (9.4-12.4); Platelet Count 295 K/mcL (140-400); Red Blood Count 3.66 M/mcL (3.82-4.97); Red Cell Distribution Width 17.5 % (11.5-14.5)
[2018-03-25 03:39] LABS: BUN/Creatinine Ratio 30 (6-26); Blood Urea Nitrogen 11 mg/dL (6-20); Calcium 8.2 mg/dL (8.6-10.3); Carbon Dioxide 31 mEq/L (23-29); Chloride 107 mEq/L (98-107); Glucose 78 mg/dL (70-105); Magnesium 2.4 mg/dL (1.6-2.6); Osmolality,Calculated 286 (280-300); Phosphorous 3.8 mg/dL (2.7-4.5); Potassium 4.2 mEq/L (3.5-5.1); Sodium 139 mEq/L (136-145); eGFR For Non-African Americans > 60 (> 60)
[2018-03-25] MEDS: Pantoprazole 40 MG VIAL IVP SCH (06:06)
[2018-03-25] MEDS: *HR* Buprenorphine HCl 8 MG TAB.SUBL SL SCH (07:50)
[2018-03-25] MEDS: Famotidine 20 MG TABLET PO SCH (07:50)
[2018-03-25] MEDS: Furosemide 20 MG TABLET PO SCH (07:50)
[2018-03-25] MEDS: AMPHETAMINE PO SCH (08:06)
[2018-03-25] MEDS: Nicotine 21 MG PATCH.TD24 TD SCH (08:06)
[2018-03-25] MEDS: DEXTROAMPHETAMINE PO SCH (08:06)
[2018-03-25] MEDS: (Vilazodone Hcl [Viibryd] 40 MG) PO SCH (08:06)
--- NOTE | 2018-03-25 10:22 | Discharge Summary ---
- NOTES TO OUTPATIENT PROVIDER Notes to Outpatient Provider: Follow up with GI, Pulmonology, PCP. Discharged on 14 days of augmentin as recommended by Pulmonology Orders not resulted at time of discharge: Pending orders 03/21/18 22:48 Culture,Blood [BC] Stat 03/22/18 11:32 Alkaline Phosphatase Isoenzyme Routine Liver Fibrosis for NAFLD Routine Date of Encounter: 03/25/18 Time of Encounter: 10:21 - Discharge Diagnosis (1) Empyema lung Priority: Primary Status: Acute (2) Anemia Priority: Secondary Status: Chronic Qualifiers: Anemia type: other cause Other causes of anemia: chronic disease, other Qualified Code(s): D63.8 - Anemia in other chronic diseases classified elsewhere (3) Bipolar disorder Priority: Secondary Status: Chronic Qualifiers: Active/Remission status: remission status unspecified Qualified Code(s): F31.9 - Bipolar disorder, unspecified (4) Cirrhosis Priority: Secondary Status: Chronic Qualifiers: Hepatic cirrhosis type: alcoholic cirrhosis Ascites presence: without ascites Qualified Code(s): K70.30 - Alcoholic cirrhosis of liver without ascites (5) Depression with anxiety Priority: Secondary Status: Chronic (6) DVT prophylaxis Priority: Secondary Status: Resolved (7) Gastric ulcer Priority: Secondary Status: Chronic Qualifiers: Gastric ulcer chronicity: chronic Gastric ulcer complication status: without hemorrhage or perforation Qualified Code(s): K25.7 - Chronic gastric ulcer without hemorrhage or perforation (8) Hepatic steatosis Priority: Secondary Status: Chronic (9) History of pulmonary embolism Priority: Primary Status: Acute (10) History of Flynn-en-Y gastric bypass Priority: Secondary Status: Chronic (11) Lung abscess Priority: Secondary Status: Suspected Qualifiers: Pulmonary abscess pneumonia presence: without pneumonia Laterality: right Lung location: lower lobe of lung Qualified Code(s): J85.2 - Abscess of lung without pneumonia (12) Malabsorption Priority: Secondary Status: Chronic Qualifiers: Intestinal malabsorption type: unspecified Qualified Code(s): K90.9 - Intestinal malabsorption, unspecified (13) Malnutrition Priority: Secondary Status: Chronic Qualifiers: Malnutrition type: protein-calorie malnutrition Protein-calorie maln utrition severity: unspecified severity Qualified Code(s): E46 - Unspecified protein-calorie malnutrition (14) Tobacco abuse Priority: Secondary Status: Chronic (15) Constipation Priority: Primary Status: Resolved Qualifiers: Constipation type: slow transit constipation Qualified Code(s): K59.01 - Slow transit constipation Hospital course: Ms. Abdi is a 42 year-old female with medical history of alcohol-induced liver cirrhosis, severe protein calorie malnutrition, history of Flynn-en-Y gastric bypass, gastric ulcer, with chest port receiving TPN at home and IV PPIs at home Patient was admitted for empyema of the right lung, without any evidence of sepsis, she also has associated suspected R lung abscess , additional new di agnosis of constipation Patient has remained stable without sepsis, hypoxia and constipation has resolved. She was placed on vano and Zosyn till date of discharge. Per Pulmonology, she was discharged on Augmentin 875 BID for 14 days Her constipation resolved and she is tolerating po Her blood pressure remained soft, with MAP >60, she was receiving half the dose of prescribed Lasix and Spironolactone. She is asymptomatic of her low blood pressures, which seem to be chronic Encouraged to further decrease her home diuretics and follow up with GI 3 mins spent on tobacco cessation counselling, she is discharged in clinically stable condition with home health to resume services Discharge discussed with: patient, nurse, social work, home care consultant Time spent discussing smoking cessation with patient: 3 to 10 minutes (3 mins spent on tobacco cessation counselling) - Time Spent with Patient Total time spent providing and/or coordinating discharge services: Less than 30 minutes - Discharge Medications Prescriptions: Amoxicillin/Clavulanate [Augmentin] 875 mg PO BIDWM 14 Days #28 tablet Home Medications: Cyanocobalamin (B-12) [Vitamin B12] 1,000 mcg IM QMONTH 12/18/17 [History] Ergocalciferol (VITAMIN D2) [Vitamin D2] 50,000 unit PO Q14D 12/18/17 [History] Furosemide [Lasix] 20 - 40 mg PO DAILY 12/18/17 [History] Lipase/Protease/Amylase [Creon Dr 36,000 Units Capsule] 36,000 units PO TIDAC 12/18/17 [History] OLANZapine [Zyprexa] 20 mg PO HS 12/18/17 [History] Sucralfate [Carafate] 1 gm PO QID 12/18/17 [History] Vilazodone HCl [Viibryd] 40 mg PO DAILY 12/18/17 [History] Buprenorphine HCl 8 mg SL BID 03/22/18 [History] Clinimix E 5%-15% SOLUTION [Clinimix E 5%-15% Solution] 1,540 ml IV HS 03/22/18 [History] Dextroamphetamine/Amphetamine [Adderall 20 mg Tablet] 20 mg PO BID 03/22/18 [History] Esomeprazole Sodium [Nexium I.v] 40 mg IV BID 03/22/18 [History] Spironolactone [Aldactone] 50 - 100 mg PO DAILY 03/22/18 [History] raNITIdine HCl [Zantac] 300 mg PO BID 03/22/18 [History] Amoxicillin/Clavulanate [Augmentin] 875 mg PO BIDWM 14 Days #28 tablet 03/25/18 [Rx] Allergies/Adverse Reactions: Allergy/AdvReac Type Severity Reaction Status Date / Time cephalexin Allergy Rash Verified 07/18/17 15:36 clindamycin Allergy Rash Verified 07/18/17 15:36 nalbuphine [From Nubain] AdvReac "didn't Verified 07/18/17 15:[address] it made me feel" Date of admission: 03/23/18 14:59 Primary care physician: PCP NONE Consults: 03/22/18 00:18 Consult to Nutrition [CONS] Routine Comment: Consulting Provider: NUTRITION Reason for Dietary Consult: TPN Start and Manage 03/22/18 05:41 Consult to Gastroenterology [CONS] Routine Consulting Provider: Gastroenterology Par[facility] Reason for Consult: Gastric ulcers, constipation, history of gastric bypass. Call Completed: No 03/22/18 13:27 Consult to Pulmonology [CONS] Routine Consulting Provider: [facility] [place] Reason for Consult: Right lung empyema Call Completed: Yes Discharging clinician: Kiko Tomas Anticipated date of discharge: 03/25/18 - Constitutional Vitals: Temp Pulse Resp BP Pulse Ox 97.8 F 86 16 84/49 88 03/25/18 03:30 03/25/18 06:46 03/25/18 03:30 03/25/18 06:46 03/25/18 03:30 General appearance: Present: cooperative, A&O X 3, pleasant, no acute distress, answers questions appropriately Exam: Vital signs stable Gen: Cachectic, not in any form of distress HEENT;Moist oral mucosa, not pale and icteric, not cyanotic, normal neck inspection Chest: Right chest wall port, clean surrounding REspiratory: Chest is clear to auscultation bilaterally, no added sounds Heart:Heart sounds S1-S2 only, no murmurs gallops or rubs Abdomen: Abdomen is soft and nontender with no palpably enlarged organs, multiple scars from previous surgeries. Bowel sounds present in all quadrants. Extremities:No pedal edema Psych: Affect is normal Skin: No skin rash - Patient Status Disposition: Home Health Service Condition: Good Functional capacity at discharge: independent ambulation Overall status at discharge: patient is progressing back to baseline - Discharge Instructions Follow Up With: Fam Rubin DO [Resident] - 04/01/18 11:00 am Jhon Moeller MD [Partnered Physician] - (sent a web request and the office will call patient at home with appointment date and time) Salo Luther MD [Partnered Physician] - 03/29/18 8:30 am Emanuel Manley MD [Partnered Physician] - (office will call patient at home with appointment date and time) - Diet and Activity Activity: resume usual activities as tolerated Diet: other (TPN, regular diet)
[2018-03-25] MEDS: Budesonide/Formoterol 160/4.5 1 PUFF INH IH SCH (10:25)
--- NOTE | 2018-03-25 10:25 | Physician Discharge Referral ---
Home Health/Hosp Referral Info Transfer to: Home Health Attending Provider: Hong Tomas Provider in Charge Post Discharge: PCP - Diagnosis (1) Empyema lung Priority: Primary Status: Acute (2) Anemia Priority: Secondary Status: Chronic (3) Bipolar disorder Priority: Secondary Status: Chronic (4) Cirrhosis Priority: Secondary Status: Chronic (5) Depression with anxiety Priority: Secondary Status: Chronic (6) DVT prophylaxis Priority: Primary Status: Resolved (7) Gastric ulcer Priority: Secondary Status: Chronic (8) Hepatic steatosis Priority: Secondary Status: Chronic (9) History of pulmonary embolism Priority: Secondary Status: Acute (10) History of Flynn-en-Y gastric bypass Priority: Secondary Status: Chronic (11) Lung abscess Priority: Primary Status: Suspected (12) Malabsorption Priority: Secondary Status: Chronic (13) Malnutrition Priority: Secondary Status: Chronic (14) Tobacco abuse Priority: Secondary Status: Chronic (15) Constipation Priority: Secondary Status: Resolved - Respiratory Orders Smoking Cessation: Smoking cessation has been advised. For more information, call the [place] Tobacco Quit Line at 3-858-CCVC-NOW. - Diet/Nutrition Diet/Nutrition Orders: Regular Diet/Nutrition: List: TPN, Clinimix E 5-15% 1,540 mls IV HS - Activity Activity Orders: Up ad shena - Services Needed Following services are medically necessary services: Nursing, Home Health Aide, Home Infusion - Transfer Medications Prescriptions: Amoxicillin/Clavulanate [Augmentin] 875 mg PO BIDWM 14 Days #28 tablet Home Medications: Cyanocobalamin (B-12) [Vitamin B12] 1,000 mcg IM QMONTH 12/18/17 [History] Ergocalciferol (VITAMIN D2) [Vitamin D2] 50,000 unit PO Q14D 12/18/17 [History] Furosemide [Lasix] 20 - 40 mg PO DAILY 12/18/17 [History] Lipase/Protease/Amylase [Creon Dr 36,000 Units Capsule] 36,000 units PO TIDAC 12/18/17 [History] OLANZapine [Zyprexa] 20 mg PO HS 12/18/17 [History] Sucralfate [Carafate] 1 gm PO QID 12/18/17 [History] Vilazodone HCl [Viibryd] 40 mg PO DAILY 12/18/17 [History] Buprenorphine HCl 8 mg SL BID 03/22/18 [History] Clinimix E 5%-15% SOLUTION [Clinimix E 5%-15% Solution] 1,540 ml IV HS 03/22/18 [History] Dextroamphetamine/Amphetamine [Adderall 20 mg Tablet] 20 mg PO BID 03/22/18 [History] Esomeprazole Sodium [Nexium I.v] 40 mg IV BID 03/22/18 [History] Spironolactone [Aldactone] 50 - 100 mg PO DAILY 03/22/18 [History] raNITIdine HCl [Zantac] 300 mg PO BID 03/22/18 [History] Amoxicillin/Clavulanate [Augmentin] 875 mg PO BIDWM 14 Days #28 tablet 03/25/18 [Rx] Allergies/Adverse Reactions: Allergy/AdvReac Type Severity Reaction Status Date / Time cephalexin Allergy Rash Verified 07/18/17 15:36 clindamycin Allergy Rash Verified 07/18/17 15:36 nalbuphine [From Nubain] AdvReac "didn't Verified 07/18/17 15:36 like the way it made me feel" Certification: Further, I certify that my clinical findings support that this patient is homebound (i.e. absences from home require considerable and taxing effort and are for medical reasons or [facility] or infrequently or short duration when for other reasons) because: Homebound Reason: Patient requires assistance of a person or device to safely leave home Attestation: My signature below is to certify that this patient is under my care and that I, or nurse practitioner, or a physician's retail loan originator assistant working with me, has a [id number] encounter with this patient.
[2018-03-25 15:03] LABS: INR 1.1; Prothrombin Time 12.5 Seconds (9.4-12.1)
[2018-03-25 15:12] VITALS: BP 104/55
[2018-03-25] MEDS ORDERED: Heparin 1,000 UNITS/500 mL 500 ML ONE (15:26)
[2018-03-25] MEDS ORDERED: CeFAZolin Premix DUPLEX 2,000 MG/50 ML BAG IVPB ONE ×2 (15:42→16:00)
--- NOTE | 2018-03-25 16:22 | IR Procedure Note ---
Date of procedure: 03/25/18 Consent Obtained: Verbal consent, Written consent Timeout: Correct patient and procedure verified, Correct site verified, Time out performed, Skin prep completed Local anesthetic: Lidocaine 1% Indications: Whyte malfunction Procedure Performed: Whyte replacement Was there an assistant corporate controller present: No Site/Technique: Whyte replaced in VIR Results/Findings: New catheter in good position Estimated blood loss (cc): 2 Complications: None; Tolerated procedure well Post Procedure Treatment Plan: OK to use catheter now Specimen: None
[2018-03-26 03:20] LABS: Alkaline Phosphatase 139 U/L (40-120); Alkaline Phosphatase Bone 71 U/L (0-55)
[2018-03-26 11:03] LABS: Alkaline Phosphatase Liver 68 U/L (0-94); Alkaline Phosphatase Other 0 U/L
== END 2018-03-25 17:08 | disposition home health service (06) | DRG 177 ==
LOC: 2NENU 16:39 → EMEROOARM 16:39 → 2NENU 03-22 00:04 → SUATTDRO 03-23 14:59
PROVIDERS: ADMIT Internal Medicine; ATTEND Internal Medicine

== ENCOUNTER 2018-04-07 18:18 | Inpatient (IN) ==
--- NOTE | 2018-04-07 18:42 | Emergency Department Note ---
Disposition Clinical Impression: Abdominal pain Qualifiers: Abdominal location: epigastric Qualified Code(s): R10.13 - Epigastric pain Disposition: Still a Patient Condition: Good Instructions: Abdominal Pain (ED) Reasons to Return/Additional Instructions: Return to the emergency department if you have any worsening of your current symptoms, or if you develop any new symptoms. 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 Take all medications as prescribed. Referrals: Fam Rubin DO [Primary Care Provider] - Emanuel Manley MD [Partnered Physician] - Forms: ED Satisfaction Letter, Work/School Release Time of Disposition: 20:39 General Adult HPI - General Chief complaint: ED General Medical Stated complaint: ABD PAIN Source: patient Limitations: no limitations Nursing Notes Reviewed: Yes Vital Signs Reviewed: Yes - History of Present Illness HPI Narrative: 42-year-old female to the emergency department with concern for epigastric abdominal pain, nausea. Reports history of Gastric bypass surgery, peptic ulcer disease, with line in for TPN. Patient had recent admission for what she states is a lung abscess. She states that she has both an appointment with her campus dean, Dr. Manley as well as Dr. Cole this coming . Patient spoke with her campus dean today as she was reporting having chills and she reported having bright red blood per rectum as well. He spoke with me on the phone who stated that he would recommend obtaining a CT scan of the chest as well as CT scan of abdomen and pelvis. If required to be admitted, he would follow patient on the floor. Pain Scale: 5 - Related Data Home Medications Medication Instructions Recorded Confirmed Cyanocobalamin (B-12) [Vitamin B12] 1,000 mcg IM QMONTH 12/18/17 03/29/18 Ergocalciferol (VITAMIN D2) 50,000 unit PO Q14D 12/18/17 03/29/18 [Vitamin D2] Furosemide [Lasix] 20 mg PO DAILY 12/18/17 03/29/18 Lipase/Protease/Amylase [Virgilio Ramos 36,000 units PO TIDAC 12/18/17 03/29/18 36,000 Units Capsule] OLANZapine [Zyprexa] 20 mg PO HS 12/18/17 03/29/18 Sucralfate [Carafate] 1 gm PO QID 12/18/17 03/29/18 Vilazodone HCl [Viibryd] 40 mg PO DAILY 12/18/17 03/29/18 Buprenorphine HCl 8 mg SL BID 03/22/18 03/29/18 Clinimix E 5%-15% SOLUTION 1,540 ml IV HS 03/22/18 03/29/18 [Clinimix E 5%-15% Solution] Dextroamphetamine/Amphetamine 20 mg PO BID 03/22/18 03/29/18 [Adderall 20 mg Tablet] Esomeprazole Sodium [Nexium I.v] 40 mg IV BID 03/22/18 03/29/18 Spironolactone [Aldactone] 50 - 100 mg PO DAILY 03/22/18 03/29/18 raNITIdine HCl [Zantac] 300 mg PO BID 03/22/18 03/29/18 Previous Rx's Medication Instructions Recorded Amoxicillin/Clavulanate [Augmentin] 875 mg PO BIDWM 14 Days #28 tablet 03/25/18 Allergies Allergy/AdvReac Type Severity Reaction Status Date / Time cephalexin Allergy Rash Verified 03/29/18 09:16 clindamycin Allergy Rash Verified 03/29/18 09:16 nalbuphine [From Nubain] AdvReac "didn't Verified 03/29/18 09:16 like the way it made me feel" All systems ED: reviewed and negative except as stated. Review of Systems: As Per HPI Constitutional: Reports: fever Cardiovascular: Denies: chest pain Respiratory: Denies: cough, dyspnea Gastrointestinal: Reports: abdominal pain, hematochezia. Denies: nausea, vomiting Genitourinary: Denies: urgency, dysuria, frequency Musculoskeletal: Denies: back pain Past Medical History - Past Medical History Medical history: Reports: arthritis, cirrhosis, pulmonary embolus, other Surgical history: Reports: appendectomy, cholecystectomy, herniorrhaphy, hysterectomy, other, bariatric surgery Psychiatric history: Reports: anxiety, bipolar, depression, prior suicide attempt [employer] history: Reports: bilateral tubal ligation - Social History Smoking Status: Current every day smoker Smokeless Tobacco Status: No Alcohol use: Reports: none Drug use: Reports: none Physical Exam - General Limitations: no limitations General appearance: alert - Head Head exam: normocephalic - Eye Eye exam: Present: EOMI - ENT ENT exam: mucous membranes moist - Neck Neck exam: Present: trachea midline - Chest Chest inspection: Present: symmetric chest wall rise - Respiratory Respiratory exam: Present: normal lung sounds bilaterally. Absent: respiratory distress, accessory muscle use - Cardiovascular Cardiovascular exam: Present: normal rhythm, tachycardia, normal heart sounds - Abdominal Exam Abdominal exam: Present: soft, tenderness. Absent: distention, guarding, rebound, rigidity Abdominal tenderness: Present: epigastrium. Absent: RUQ - Extremities Exam Extremities exam: Present: normal capillary refill - Back Exam Back exam: Present: full ROM - Neurological Exam Neurological exam: Present: alert, oriented X3 - Psychiatric Psychiatric exam: Present: normal affect, normal mood - Skin Skin exam: Present: warm, dry, intact, normal color. Absent: rash Course Vital Signs Temperature 98.7 F 04/07/18 18:26 Pulse Rate 109 04/07/18 18:26 Respiratory Rate 20 04/07/18 18:26 Blood Pressure 127/84 04/07/18 18:26 O2 Sat by Pulse Oximetry 96 04/07/18 18:26 Temperature 98.7 F 04/07/18 18:36 Pulse Rate 92 04/07/18 19:53 Respiratory Rate 16 04/07/18 19:53 Blood Pressure 110/74 04/07/18 19:53 O2 Sat by Pulse Oximetry 100 04/07/18 19:53 Oxygen Delivery Oxygen Delivery Room Air Medical Decision Making - [facility] Narrative Medical decision making narrative: 42-year-old female presents emergency department with concern for epigastric abdominal pain in the setting of having multiple surgeries as well as currently having peptic ulcer disease. She has reported subjective fevers as well. Patient currently afebrile here. She is mildly tachycardic so we have administered 1 L of fluids, provided pain medication and nausea medication. Lab s are within normal limits. Currently awaiting CT scan of the abdomen and pelvis to result. Transfer of care will be provided to Dr. Lane and Dr. Vee. Vital Signs Temperature 98.7 F 04/07/18 18:26 Pulse Rate 109 04/07/18 18:26 Respiratory Rate 20 04/07/18 18:26 Blood Pressure 127/84 04/07/18 18:26 O2 Sat by Pulse Oximetry 96 04/07/18 18:26 Temperature 98.7 F 04/07/18 18:36 Pulse Rate 92 04/07/18 19:53 Respiratory Rate 16 04/07/18 19:53 Blood Pressure 110/74 04/07/18 19:53 O2 Sat by Pulse Oximetry 100 04/07/18 19:53 Oxygen Delivery Oxygen Delivery Room Air - Lab Data Result diagrams: 04/07/18 19:25 04/07/18 19:25 Lab Results 04/07/18 04/07/18 04/07/18 Range/Units 18:48 19:25 19:25 WBC 8.8 (4.3-11.1) K/mcL RBC 4.31 (3.82-4.97) M/mcL Hgb 11.4 L (11.5-15.4) g/dL Hct 34.9 L (35.3-44.9) % MCV 81.0 L (83.0-100.0) fL MCH 26.5 L (28.0-33.3) pg MCHC 32.7 (31.6-35.5) g/dL RDW 17.4 H (11.5-14.5) % Plt Count 289 (140-400) K/mcL MPV 8.7 L (9.4-12.4) fL Immature Gran % 0.2 (0-4) % Seg Neutrophils % 35.3 % Lymphocytes % 49.7 % Monocytes % 8.6 % Eosinophils % 5.9 % Basophils % 0.3 % Neutrophils # 3.1 (1.6-8.9) K/mcL Lymphocytes # 4.4 (0.6-4.6) K/mcL Monocytes # 0.8 (0.0-1.3) K/mcL Eosinophils # 0.5 (0.0-0.6) K/mcL Basophils # 0.0 (0.0-0.2) K/mcL PT (9.4-12.1) Seconds INR Sodium 137 (136-145) mEq/L Potassium 3.8 (3.5-5.1) mEq/L Chloride 103 (98-107) mEq/L Carbon Dioxide 28 (23-29) mEq/L BUN 5 L (6-20) mg/dL Creatinine 0.44 L (0.60-1.20) mg/dL Est GFR ( Amer) > 60 (> 60) Est GFR (Non-Af Amer) > 60 (> 60) BUN/Creatinine Ratio 11 (6-26) Glucose 95 (70-105) mg/dL Calculated Osmolality 281 (280-300) Calcium 8.5 L (8.6-10.3) mg/dL Total Bilirubin 0.2 L (0.3-1.0) mg/dL AST 17 (13-39) Units/L ALT 11 (7-52) Units/L Alkaline Phosphatase 123 H (34-104) Units/L Serum Total Protein 6.1 L (6.4-8.9) g/dL Albumin 3.3 L (3.5-5.7) g/dL Globulin 2.8 (2.4-3.5) g/dL Albumin/Globulin Ratio 1.2 (1.1-2.2) Lipase 5 L (11-82) Units/L Urine Color Yellow (Yellow) Urine Clarity Clear (Clear) Urine pH 6.5 (5.0-8.0) pH Units Ur Specific [place] < 1.005 L (1.010-1.025) Urine Protein Negative (Neg-Trace) mg/dL Urine Glucose (UA) Normal (Normal) mg/dL Urine Ketones Negative (Negative) mg/dL Urine Blood Negative (Negative) Urine Nitrite Negative (Negative) Urine Bilirubin Negative (Negative) Urine Urobilinogen Normal (Normal) mg/dL Ur Leukocyte Esterase Negative (Negative) Ur Culture Indicated? NO (NO) Stool Occult Bld Scrn (Negative) 04/07/18 04/07/18 Range/Units 19:25 19:30 WBC (4.3-11.1) K/mcL RBC (3.82-4.97) M/mcL Hgb (11.5-15.4) g/dL Hct (35.3-44.9) % MCV (83.0-100.0) fL MCH (28.0-33.3) pg MCHC (31.6-35.5) g/dL RDW (11.5-14.5) % Plt Count (140-400) K/mcL MPV (9.4-12.4) fL Immature Gran % (0-4) % Seg Neutrophils % % Lymphocytes % % Monocytes % % Eosinophils % % Basophils % % Neutrophils # (1.6-8.9) K/mcL Lymphocytes # (0.6-4.6) K/mcL Monocytes # (0.0-1.3) K/mcL Eosinophils # (0.0-0.6) K/mcL Basophils # (0.0-0.2) K/mcL PT 12.9 H (9.4-12.1) Seconds INR 1.1 Sodium (136-145) mEq/L Potassium (3.5-5.1) mEq/L Chloride (98-107) mEq/L Carbon Dioxide (23-29) mEq/L BUN (6-20) mg/dL Creatinine (0.60-1.20) mg/dL Est GFR ( Amer) (> 60) Est GFR (Non-Af Amer) (> 60) BUN/Creatinine Ratio (6-26) Glucose (70-105) mg/dL Calculated Osmolality (280-300) Calcium (8.6-10.3) mg/dL Total Bilirubin (0.3-1.0) mg/dL AST (13-39) Units/L ALT (7-52) Units/L Alkaline Phosphatase (34-104) Units/L Serum Total Protein (6.4-8.9) g/dL Albumin (3.5-5.7) g/dL Globulin (2.4-3.5) g/dL Albumin/Globulin Ratio (1.1-2.2) Lipase (11-82) Units/L Urine Color (Yellow) Urine Clarity (Clear) Urine pH (5.0-8.0) pH Units Ur Specific [place] (1.010-1.025) Urine Protein (Neg-Trace) mg/dL Urine Glucose (UA) (Normal) mg/dL Urine Ketones (Negative) mg/dL Urine Blood (Negative) Urine Nitrite (Negative) Urine Bilirubin (Negative) Urine Urobilinogen (Normal) mg/dL Ur Leukocyte Esterase (Negative) Ur Culture Indicated? (NO) Stool Occult Bld Scrn Negative (Negative) Attestation Statement - Attestation Attestation: I, Shady Garcia, examined this patient and my medical decision-making was reviewed with the JIG HAND/PA/Advanced Practice Nurse/Resident Physician. I agree with the documented findings, disposition and treatment plan as described except to the extent set forth below. 42-year-old female presents emergency Department with concerns of fever, shortness of breath, abdominal pain. Patient has long history of pulmonary abscess for which she is following Dr. Mclean and currently taking 875 amoxicillin twice a day. Patient states she has been persistently febrile. She was evaluated by Dr. Manley for her malabsorption syndrome, colitis, gastric ulcer disease. He center to the emergency department for further evaluation. He called and requested CT of the abdomen and pelvis to further evaluate the abdomen. We will obtain CT of the chest, abdomen, pelvis to further evaluate the abscess, peptic ulcer disease and colitis. Patient care will be transferred to [facility] pending CT scan and reevaluation and disposition.
[2018-04-07] MEDS ORDERED: Ondansetron 4 MG/2 ML VIAL IVP ONE (18:44)
[2018-04-07] MEDS ORDERED: 0.9 % Sodium Chloride 1,000 ML IVC ONE (18:44)
[2018-04-07] MEDS ORDERED: *HR* FentaNYL (PF) 100 MCG/2 ML VIAL IVP ONE (18:44)
[2018-04-07 18:59] LABS: Bilirubin,Urine Negative (Negative); Blood,Urine Negative (Negative); Clarity,Urine Clear (Clear); Color,Urine Yellow (Yellow); Glucose,Urine (UA) Normal (Normal); Ketones,Urine Negative (Negative); Leukocyte Esterase,Urine Negative (Negative); Nitrite,Urine Negative (Negative); PH,Urine 6.5 pH Units (5.0-8.0); Protein,Urine Negative (Neg-Trace); Specific Gravity,Urine < 1.005 (1.010-1.025); Urobilinogen,Urine Normal (Normal)
[2018-04-07] MEDS ORDERED: Isovue-370 500 ML INFUS..BTL IV ONE (19:29)
[2018-04-07 19:38] LABS: Basophils % 0.3 %; Eosinophils # 0.5 K/mcL (0.0-0.6); Eosinophils % 5.9 %; Hematocrit 34.9 % (35.3-44.9); Hemoglobin 11.4 g/dL (11.5-15.4); Immature Granulocytes % 0.2 % (0-4); Lymphocytes # 4.4 K/mcL (0.6-4.6); Lymphocytes % 49.7 %; Mean Corpuscular HGB Conc 32.7 g/dL (31.6-35.5); Mean Corpuscular Hemoglobin 26.5 pg (28.0-33.3); Mean Platelet Volume 8.7 fL (9.4-12.4); Monocytes # 0.8 K/mcL (0.0-1.3); Monocytes % 8.6 %; Neutrophils # 3.1 K/mcL (1.6-8.9); Platelet Count 289 K/mcL (140-400); Red Blood Count 4.31 M/mcL (3.82-4.97); Red Cell Distribution Width 17.4 % (11.5-14.5); Segmented Neutrophils % 35.3 %
[2018-04-07 19:58] LABS: Alanine Aminotransferase 11 Units/L (7-52); Albumin 3.3 g/dL (3.5-5.7); Albumin/Globulin Ratio 1.2 (1.1-2.2); Alkaline Phosphatase 123 Units/L (34-104); Aspartate Amino Transferase 17 Units/L (13-39); BUN/Creatinine Ratio 11 (6-26); Bilirubin,Total 0.2 mg/dL (0.3-1.0); Blood Urea Nitrogen 5 mg/dL (6-20); Calcium 8.5 mg/dL (8.6-10.3); Carbon Dioxide 28 mEq/L (23-29); Chloride 103 mEq/L (98-107); Globulin 2.8 g/dL (2.4-3.5); Glucose 95 mg/dL (70-105); Lipase 5 Units/L (11-82); Osmolality,Calculated 281 (280-300); Potassium 3.8 mEq/L (3.5-5.1); Sodium 137 mEq/L (136-145); Total Protein 6.1 g/dL (6.4-8.9); eGFR For Non-African Americans > 60 (> 60)
[2018-04-07 20:22] LABS: INR 1.1; Prothrombin Time 12.9 Seconds (9.4-12.1)
--- NOTE | 2018-04-07 20:45 | Emergency Department Note ---
Disposition Clinical Impression: Small bowel obstruction, Empyema lung Abdominal pain Qualifiers: Abdominal location: epigastric Qualified Code(s): R10.13 - Epigastric pain Disposition: Admitted As Inpatient Condition: Good Instructions: Abdominal Pain (ED) Reasons to Return/Additional Instructions: Return to the emergency department if you have any worsening of your current symptoms, or if you develop any new symptoms. 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 Take all medications as prescribed. Referrals: Fam Rubin DO [Primary Care Provider] - Emanuel Manley MD [Partnered Physician] - Forms: ED Satisfaction Letter, Work/School Release Time of Disposition: 21:31 General Adult HPI - General Chief complaint: ED General Medical Stated complaint: ABD PAIN Time Seen by Provider: 04/07/18 18:42 Source: patient Limitations: no limitations - History of Present Illness Pain Scale: 5 - Related Data Home Medications Medication Instructions Recorded Confirmed Cyanocobalamin (B-12) [Vitamin B12] 1,000 mcg IM QMONTH 12/18/17 03/29/18 Ergocalciferol (VITAMIN D2) 50,000 unit PO Q14D 12/18/17 03/29/18 [Vitamin D2] Furosemide [Lasix] 20 mg PO DAILY 12/18/17 03/29/18 Lipase/Protease/Amylase [Creon Dr 36,000 units PO TIDAC 12/18/17 03/29/18 36,000 Units Capsule] OLANZapine [Zyprexa] 20 mg PO HS 12/18/17 03/29/18 Sucralfate [Carafate] 1 gm PO QID 12/18/17 03/29/18 Vilazodone HCl [Viibryd] 40 mg PO DAILY 12/18/17 03/29/18 Buprenorphine HCl 8 mg SL BID 03/22/18 03/29/18 Clinimix E 5%-15% SOLUTION 1,540 ml IV HS 03/22/18 03/29/18 [Clinimix E 5%-15% Solution] Dextroamphetamine/Amphetamine 20 mg PO BID 03/22/18 03/29/18 [Adderall 20 mg Tablet] Esomeprazole Sodium [Nexium I.v] 40 mg IV BID 03/22/18 03/29/18 Spironolactone [Aldactone] 50 - 100 mg PO DAILY 03/22/18 03/29/18 raNITIdine HCl [Zantac] 300 mg PO BID 03/22/18 03/29/18 Previous Rx's Medication Instructions Recorded Amoxicillin/Clavulanate [Augmentin] 875 mg PO BIDWM 14 Days #28 tablet 03/25/18 Allergies Allergy/AdvReac Type Severity Reaction Status Date / Time cephalexin Allergy Rash Verified 03/29/18 09:16 clindamycin Allergy Rash Verified 03/29/18 09:16 nalbuphine [From Nubain] AdvReac "didn't Verified 03/29/18 09:16 [address] way it made me feel" Constitutional: Reports: fever Cardiovascular: Denies: chest pain Respiratory: Denies: cough, dyspnea Gastrointestinal: Reports: abdominal pain, hematochezia. 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 - Social History Smoking Status: Current every day smoker Smokeless Tobacco Status: No Alcohol use: Reports: none Drug use: Reports: none Physical Exam - General Limitations: no limitations General appearance: alert Course Vital Signs Temperature 98.7 F 04/07/18 18:26 Pulse Rate 109 04/07/18 18:26 Respiratory Rate 20 04/07/18 18:26 Blood Pressure 127/84 04/07/18 18:26 O2 Sat by Pulse Oximetry 96 04/07/18 18:26 Temperature 98.7 F 04/07/18 18:36 Pulse Rate 77 04/07/18 21:01 Respiratory Rate 18 04/07/18 21:01 Blood Pressure 106/62 04/07/18 21:01 O2 Sat by Pulse Oximetry 100 04/07/18 21:01 Oxygen Delivery Oxygen Delivery Room Air Medical Decision Making - Lab Data Result diagrams: 04/07/18 19:25 04/07/18 19:25 Lab Results 04/07/18 04/07/18 04/07/18 Range/Units 18:48 19:25 19:25 WBC 8.8 (4.3-11.1) K/mcL RBC 4.31 (3.82-4.97) M/mcL Hgb 11.4 L (11.5-15.4) g/dL Hct 34.9 L (35.3-44.9) % MCV 81.0 L (83.0-100.0) fL MCH 26.5 L (28.0-33.3) pg MCHC 32.7 (31.6-35.5) g/dL RDW 17.4 H (11.5-14.5) % Plt Count 289 (140-400) K/mcL MPV 8.7 L (9.4-12.4) fL Immature Gran % 0.2 (0-4) % Seg Neutrophils % 35.3 % Lymphocytes % 49.7 % Monocytes % 8.6 % Eosinophils % 5.9 % Basophils % 0.3 % Neutrophils # 3.1 (1.6-8.9) K/mcL Lymphocytes # 4.4 (0.6-4.6) K/mcL Monocytes # 0.8 (0.0-1.3) K/mcL Eosinophils # 0.5 (0.0-0.6) K/mcL Basophils # 0.0 (0.0-0.2) K/mcL PT (9.4-12.1) Seconds INR Sodium 137 (136-145) mEq/L Potassium 3.8 (3.5-5.1) mEq/L Chloride 103 (98-107) mEq/L Carbon Dioxide 28 (23-29) mEq/L BUN 5 L (6-20) mg/dL Creatinine 0.44 L (0.60-1.20) mg/dL Est GFR ( Amer) > 60 (> 60) Est GFR (Non-Af Amer) > 60 (> 60) BUN/Creatinine Ratio 11 (6-26) Glucose 95 (70-105) mg/dL Calculated Osmolality 281 (280-300) Calcium 8.5 L (8.6-10.3) mg/dL Total Bilirubin 0.2 L (0.3-1.0) mg/dL AST 17 (13-39) Units/L ALT 11 (7-52) Units/L Alkaline Phosphatase 123 H (34-104) Units/L Serum Total Protein 6.1 L (6.4-8.9) g/dL Albumin 3.3 L (3.5-5.7) g/dL Globulin 2.8 (2.4-3.5) g/dL Albumin/Globulin Ratio 1.2 (1.1-2.2) Lipase 5 L (11-82) Units/L Urine Color Yellow (Yellow) Urine Clarity Clear (Clear) Urine pH 6.5 (5.0-8.0) pH Units Ur Specific [place] < 1.005 L (1.010-1.025) Urine Protein Negative (Neg-Trace) mg/dL Urine Glucose (UA) Normal (Normal) mg/dL Urine Ketones Negative (Negative) mg/dL Urine Blood Negative (Negative) Urine Nitrite Negative (Negative) Urine Bilirubin Negative (Negative) Urine Urobilinogen Normal (Normal) mg/dL Ur Leukocyte Esterase Negative (Negative) Ur Culture Indicated? NO (NO) Stool Occult Bld Scrn (Negative) 04/07/18 04/07/18 Range/Units 19:25 19:30 WBC (4.3-11.1) K/mcL RBC (3.82-4.97) M/mcL Hgb (11.5-15.4) g/dL Hct (35.3-44.9) % MCV (83.0-100.0) fL MCH (28.0-33.3) pg MCHC (31.6-35.5) g/dL RDW (11.5-14.5) % Plt Count (140-400) K/mcL MPV (9.4-12.4) fL Immature Gran % (0-4) % Seg Neutrophils % % Lymphocytes % % Monocytes % % Eosinophils % % Basophils % % Neutrophils # (1.6-8.9) K/mcL Lymphocytes # (0.6-4.6) K/mcL Monocytes # (0.0-1.3) K/mcL Eosinophils # (0.0-0.6) K/mcL Basophils # (0.0-0.2) K/mcL PT 12.9 H (9.4-12.1) Seconds INR 1.1 Sodium (136-145) mEq/L Potassium (3.5-5.1) mEq/L Chloride (98-107) mEq/L Carbon Dioxide (23-29) mEq/L BUN (6-20) mg/dL Creatinine (0.60-1.20) mg/dL Est GFR ( Amer) (> 60) Est GFR (Non-Af Amer) (> 60) BUN/Creatinine Ratio (6-26) Glucose (70-105) mg/dL Calculated Osmolality (280-300) Calcium (8.6-10.3) mg/dL Total Bilirubin (0.3-1.0) mg/dL AST (13-39) Units/L ALT (7-52) Units/L Alkaline Phosphatase (34-104) Units/L Serum Total Protein (6.4-8.9) g/dL Albumin (3.5-5.7) g/dL Globulin (2.4-3.5) g/dL Albumin/Globulin Ratio (1.1-2.2) Lipase (11-82) Units/L Urine Color (Yellow) Urine Clarity (Clear) Urine pH (5.0-8.0) pH Units Ur Specific [place] (1.010-1.025) Urine Protein (Neg-Trace) mg/dL Urine Glucose (UA) (Normal) mg/dL Urine Ketones (Negative) mg/dL Urine Blood (Negative) Urine Nitrite (Negative) Urine Bilirubin (Negative) Urine Urobilinogen (Normal) mg/dL Ur Leukocyte Esterase (Negative) Ur Culture Indicated? (NO) Stool Occult Bld Scrn Negative (Negative) Attestation Statement - Attestation Attestation: Care assumed from and Dr. Garcia at 20:[address] chest [address] CT abdomen. Patient with history of malabsorption syndrome and empyema presented with nausea and vomiting. Imaging studies pending. Labs reviewed by me 22:00: CTs resulted showing continued but improving empyema as well as small bowel obstruction. I will request admission. The patient does not appear in any acute distress on exam. Gastroenterology and pulmonology to be consulted to evaluate the patient on a routine basis after admission
[2018-04-07] MEDS ORDERED: D5% in Lactated Ringers 1,000 ML IVC SCH (23:30)
[2018-04-07] MEDS ORDERED: Ketorolac 30 MG/ML VIAL IVP PRN (23:32)
[2018-04-07] MEDS ORDERED: Naloxone 0.4 MG/ML INJ IVP PRN (23:32)
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
[2018-04-07] MEDS ORDERED: Ondansetron 4 MG/2 ML VIAL IVP PRN (23:48)
[2018-04-07] MEDS ORDERED: Ringers Solution, Lactated 2,000 ML IVC ONE (23:54)
[2018-04-08] MEDS: Nicotine 14 MG PATCH.TD24 TD SCH (00:06)
[2018-04-08] MEDS: Ampicillin/Sulbactam 3,000 MG in 0.9 % Sodium Chloride Mini Bag 100 ML IVPB SCH ×4 (00:12→17:26)
[2018-04-08 04:27] LABS: Basophils % 0.3 %; Eosinophils # 0.5 K/mcL (0.0-0.6); Eosinophils % 7.5 %; Hematocrit 29.6 % (35.3-44.9); Immature Granulocytes % 0.2 % (0-4); Lymphocytes # 3.7 K/mcL (0.6-4.6); Lymphocytes % 55.9 %; Mean Corpuscular HGB Conc 32.4 g/dL (31.6-35.5); Mean Corpuscular Hemoglobin 26.5 pg (28.0-33.3); Mean Corpuscular Volume 81.8 fL (83.0-100.0); Mean Platelet Volume 8.8 fL (9.4-12.4); Monocytes # 0.6 K/mcL (0.0-1.3); Neutrophils # 1.8 K/mcL (1.6-8.9); Platelet Count 235 K/mcL (140-400); Red Blood Count 3.62 M/mcL (3.82-4.97); Red Cell Distribution Width 17.8 % (11.5-14.5); Segmented Neutrophils % 27.1 %
[2018-04-08 04:28] LABS: Hemoglobin 9.6 g/dL (11.5-15.4)
[2018-04-08 04:42] LABS: BUN/Creatinine Ratio 11 (6-26); Blood Urea Nitrogen 4 mg/dL (6-20); Calcium 8.2 mg/dL (8.6-10.3); Carbon Dioxide 29 mEq/L (23-29); Chloride 109 mEq/L (98-107); Glucose 112 mg/dL (70-105); Magnesium 1.7 mg/dL (1.6-2.6); Osmolality,Calculated 290 (280-300); Phosphorous 3.9 mg/dL (2.7-4.5); Potassium 3.9 mEq/L (3.5-5.1); Sodium 141 mEq/L (136-145); eGFR For Non-African Americans > 60 (> 60)
[2018-04-08] MEDS: *HR* Heparin 5,000 UNIT/ML VIAL SQ SCH ×2 (05:18→15:56)
[2018-04-08] MEDS ORDERED: Pantoprazole 40 MG VIAL IVP SCH (06:00)
[2018-04-08] MEDS ORDERED: D5% in Water 1,000 ML IVC PRN ×2 (07:43→16:57)
[2018-04-08] MEDS ORDERED: *HR* Dextrose 50 % in Water (Syg) 50 ML SYRINGE IVP PRN ×2 (07:43→16:57)
[2018-04-08] MEDS ORDERED: Dextrose Gel 15 GM/37.5 ML TUBE PO PRN ×4 (07:43→16:57)
--- NOTE | 2018-04-08 08:27 | Pulmonology Consult Note ---
<Diane Bright N - Last Filed: 04/08/18 10:38> Date of Encounter: 04/08/18 Time of Encounter: 08:27 Assessment and Plan (1) Lung abscess Current Visit: No Status: Acute Appears to be improved based on imaging studies, with decreased size and resolution of mediastinal lymphadenopathy. - Patient has adherent to antibiotic therapy with augmentin 875mg BID since discharge from her last hospitalization. - Denies any worsening cough, increased SOB, or sputum production. She does report recent chills and low-grade fever. CT scan on 04/08/2018 demonstrated the following: Three peripherally enhancing loculated fluid collections in the peripheral right lower lobe. Findings are suggestive of possible intrapulmonary abscesses, decreased in sizes since comparison study. Superimposed opacities in the right lower lobe and the lingula suspicious for pneumonia. No enlarged mediastinal lymph nodes. Patient is currently NPO due to concern for low-grade small bowel obstruction. She was started on Unasyn at the time of admission. Plan: - Continue IV antibiotics while NPO with transition back to augmentin once bowel obstruction resolves and patient is able to tolerate. Plan for 7 additional days of antimicrobial therapy. - Blood cultures for fungi and bacteria pending. - Monitor daily CBC and electrolyte panels. - As patient appears to be improving, no clear indication for invasive intervention or thoracentesis at this time. - Infectious disease consult placed for assistance with antimicrobial management. - Follow-up in the pulmonology clinic approximately 1 week after hospital discharge and in approximately 4 weeks. - Repeat chest CT in 4 weeks to ensure resolution of abscess. Qualifiers: Pulmonary abscess pneumonia presence: with pneumonia Laterality: left Lung location: unspecified part of lung Qualified Code(s): J85.1 - Abscess of lung with pneumonia (2) COPD (chronic obstructive pulmonary disease) Current Visit: Yes Status: Acute - Begin symbicort 160/4.5mg 2 puffs daily. Qualifiers: COPD type: unspecified COPD Qualified Code(s): J44.9 - Chronic obstructive pulmonary disease, unspecified (3) Tobacco abuse Current Visit: No Status: Chronic Patient reports that she has cut down on smoking over the last few weeks. - Counseling provided and patient was encouraged to continue cutting down with goal of cessation (4) History of pulmonary embolism Current Visit: No Status: Acute Outpatient appointment with hematology/oncology scheduled for later this month. - Heparin 5000units SQ Q8H. (5) Small bowel obstruction Current Visit: Yes Status: Acute Management per primary team. History of Present Illness Consult date: 04/08/18 Requesting physician: Mago Callejas Reason for consult: other Chief complaint: Empyema History of present illness: Ms. Abdi is a 42-year old female with an extensive medical history including cirrhosis, arthritis, WPW status post ablation, history of bilateral PE, and prior gastric bypass surgery she has had numerous hospitalizations, including several due to complications from her Flynn-en-Y bypass surgery, including multiple small bowel obstructions, pancreatitis, and recurrent surgical resections. Patient presented to the ED due to increased abdominal pain, nausea, and vomiting. Imaging studies were concerning for low-grade small bowel obstruction. Patient was recently discharged from the hospital, afternoon admission for pneumonia. A CT scan performed on 03/22/2018 demonstrated an empyema. The pulmonology service was consulted during that visit, and the decision was made to proceed with antimicrobial therapy. Patient was started on vancomycin and Zosyn as an inpatient, and was transitioned to Augmentin prior to discharge. She has been taking Augmentin 375 mg twice a day since discharge. Imaging studies performed last night in the ED demonstrated possible intrapulmonary abscesses, though they were noted to be decreased in size as compared to prior. Patient reports that she does have an outpatient visit scheduled with the pulmonology clinic later this week. Patient was seen and evaluated at the bedside. She reports recent low-grade fevers and chills. She states that she presented to the emergency department after being advised to by her GI provider. She denies any worsening shortness of breath, cough, sputum production, or wheezes. Past Med Surg Social Fam HX - Past Medical History Medical history: arthritis, cirrhosis, pulmonary embolus, other Additional medical history: wpw, Psychiatric history: anxiety, bipolar, depression, prior suicide attempt - Past Surgical History Surgical History: appendectomy, cholecystectomy, herniorrhaphy, hysterectomy, other, bariatric surgery Additional surgical history: colon resection,hernia x6,gastric bypass,bowel obstruction, implanted port - Social History Smoking Status: Current every day smoker Packs per day: 1 Smokeless Tobacco Status: No Alcohol use: none Drug use: none - Family History Father Adopted: No Living Status: Still Living Hx Family Cardiac Disorders: No Hx Family Respiratory Disorders: No Hx Family Cancer: No Hx Family GI Disorders: No Hx Family Endocrine Disorder: No Hx Family Neuromuscular Disorders: No Hx Family Neurologic Disorders: No Hx Family HEENT Disorders: No Hx Family Autoimmune Disorders: No Grandfather Living Status: Hx Family Cardiac Disorders: Yes ([place]) Maternal Grandmother Living Status: Still Living Hx Family Cancer: Yes (Lung) Sister Living Status: Still Living Hx Family Cancer: Yes (Ovarian) Mother Adopted: No Living Status: Still Living Hx Family Cardiac Disorders: Yes Hx Family Respiratory Disorders: No Hx Family Cancer: No Hx Family GI Disorders: No Hx Family Endocrine Disorder: No Hx Family Neuromuscular Disorders: No Hx Family Neurologic Disorders: No Hx Family HEENT Disorders: No Hx Family Autoimmune Disorders: No Medications and Allergies Cyanocobalamin (B-12) [Vitamin B12] 1,000 mcg IM QMONTH 12/18/17 [History] Ergocalciferol (VITAMIN D2) [Vitamin D2] 50,000 unit PO 2XW 12/18/17 [History] Furosemide [Lasix] 20 mg PO DAILY 12/18/17 [History] Lipase/Protease/Amylase [Creon Dr 36,000 Units Capsule] 36,000 units PO TIDAC 12/18/17 [History] OLANZapine [Zyprexa] 20 mg PO HS 12/18/17 [History] Sucralfate [Carafate] 1 gm PO QID 12/18/17 [History] Vilazodone HCl [Viibryd] 40 mg PO DAILY 12/18/17 [History] Buprenorphine HCl 8 mg SL BID 03/22/18 [History] Clinimix E 5%-15% SOLUTION [Clinimix E 5%-15% Solution] 1,540 ml IV HS 03/22/18 [History] Dextroamphetamine/Amphetamine [Adderall 20 mg Tablet] 20 mg PO BID 03/22/18 [H istory] Esomeprazole Sodium [Nexium I.v] 40 mg IV BID 03/22/18 [History] Spironolactone [Aldactone] 50 - 100 mg PO DAILY 03/22/18 [History] raNITIdine HCl [Zantac] 300 mg PO BID 03/22/18 [History] Amoxicillin/Clavulanate [Augmentin] 875 mg PO BID 04/07/18 [History] Allergy/AdvReac Type Severity Reaction Status Date / Time cephalexin Allergy Rash Verified 03/29/18 09:16 clindamycin Allergy Rash Verified 03/29/18 09:16 nalbuphine [From Nubain] AdvReac "didn't Verified 03/29/18 09:16 like the way it made me feel" All Systems: The remainder of the systems were reviewed and are negative - Constitutional Constitutional: chills, daytime sleepiness, fever(s) - EENT Nose, mouth and throat: no dysphagia, no headache(s), no sore throat - Cardiovascular Cardiovascular: no chest pain, no dyspnea - Respiratory Respiratory: as per HPI - Gastrointestinal Gastrointestinal: vomiting, other (constipation) - Musculoskeletal Musculoskeletal: no weakness, no abnormal gait, no muscle weakness, no numbness Physical Examination Vital Signs: Vital Signs, Last 4 Hours Temp Pulse Resp BP Pulse Ox 04/08/18 08:21 83/53 04/08/18 06:51 97.9 F 62 14 76/51 94 General appearance: no acute distress, other (chronically ill-appearing) Eyes: nonicteric ENT: oropharynx moist Mallampati (class): 2 Neck: supple Effort: normal Inspection: kyphosis Auscultation: left: wheezes, bilateral: diminished breath sounds Cardiovascular: regular rate and rhythm Gastrointestinal: normoactive bowel sounds, other (mild abdominal distension) Integumentary: normal Extremities: no cyanosis Musculoskeletal: no deformities mood appropriate, affect normal Results - Laboratory Findings CBC and BMP: 04/08/18 04:10 04/08/18 04:10 PT/INR, D-dimer PT 12.9 Seconds (9.4-12.1) H 04/07/18 19:25 Abnormal lab findings: Abnormal lab results RBC 3.62 M/mcL (3.82-4.97) L 04/08/18 04:10 Hgb 9.6 g/dL (11.5-15.4) L D 04/08/18 04:10 Hct 29.6 % (35.3-44.9) L 04/08/18 04:10 MCV 81.8 fL (83.0-100.0) L 04/08/18 04:10 MCH 26.5 pg (28.0-33.3) L 04/08/18 04:10 RDW 17.8 % (11.5-14.5) H 04/08/18 04:10 MPV 8.8 fL (9.4-12.4) L 04/08/18 04:10 PT 12.9 Seconds (9.4-12.1) H 04/07/18 19:25 Chloride 109 mEq/L (98-107) H 04/08/18 04:10 BUN 4 mg/dL (6-20) L 04/08/18 04:10 Creatinine 0.35 mg/dL (0.60-1.20) L 04/08/18 04:10 Glucose 112 mg/dL (70-105) H 04/08/18 04:10 Calcium 8.2 mg/dL (8.6-10.3) L 04/08/18 04:10 Total Bilirubin 0.2 mg/dL (0.3-1.0) L 04/07/18 19:25 Alkaline Phosphatase 123 Units/L (34-104) H 04/07/18 19:25 Serum Total Protein 6.1 g/dL (6.4-8.9) L 04/07/18 19:25 Albumin 3.3 g/dL (3.5-5.7) L 04/07/18 19:25 Lipase 5 Units/L (11-82) L 04/07/18 19:25 Ur Specific [place] < 1.005 (1.010-1.025) L 04/07/18 18:48 - Microbiology Findings Microbiology Findings: Microbiology, Last 48 Hours 04/08/18 00:56 Blood Culture - Preliminary Peripheral Venipuncture Culture is incubating and being continuously monitored for growth. Final report to follow. 04/08/18 00:56 Blood Culture - Preliminary Peripheral Venipuncture Culture is incubating and being continuously monitored for growth. Final report to follow. 04/08/18 00:56 Blood Fungal Culture - Preliminary Peripheral Venipuncture Culture is incubating and being continuously monitored for growth. Final report to follow. - Clinical Findings Intake & Output: Intake & Output 04/07/18 04/08/18 04/08/18 23:59 07:59 15:59 Intake Total 1000 / 1000 2200 / 2200 Output Total 0 / 0 0 / 0 Balance 1000 / 1000 2200 / 2200 Weight 54.431 kg Consult Discharge Plan - Plan Referrals: Rubin,Fam Khalida, DO [Primary Care Provider] - <Jhon Moeller W - Last Filed: 04/08/18 12:34> Date of Encounter: 04/08/18 All Systems: The remainder of the systems were reviewed and are negative Physical Examination Vital Signs: Vital Signs, Last 4 Hours Temp Pulse Resp BP Pulse Ox 04/08/18 10:39 98.0 F 68 16 86/50 100 Results - Laboratory Findings CBC and BMP: 04/08/18 04:10 04/08/18 04:10 PT/INR, D-dimer PT 12.9 Seconds (9.4-12.1) H 04/07/18 19:25 Abnormal lab findings: Abnormal lab results RBC 3.62 M/mcL (3.82-4.97) L 04/08/18 04:10 Hgb 9.6 g/dL (11.5-15.4) L D 04/08/18 04:10 Hct 29.6 % (35.3-44.9) L 04/08/18 04:10 MCV 81.8 fL (83.0-100.0) L 04/08/18 04:10 MCH 26.5 pg (28.0-33.3) L 04/08/18 04:10 RDW 17.8 % (11.5-14.5) H 04/08/18 04:10 MPV 8.8 fL (9.4-12.4) L 04/08/18 04:10 PT 12.9 Seconds (9.4-12.1) H 04/07/18 19:25 Chloride 109 mEq/L (98-107) H 04/08/18 04:10 BUN 4 mg/dL (6-20) L 04/08/18 04:10 Creatinine 0.35 mg/dL (0.60-1.20) L 04/08/18 04:10 Glucose 112 mg/dL (70-105) H 04/08/18 04:10 POC Glucose 110 mg/dL (70-99) H 04/08/18 10:56 Calcium 8.2 mg/dL (8.6-10.3) L 04/08/18 04:10 Total Bilirubin 0.2 mg/dL (0.3-1.0) L 04/07/18 19:25 Alkaline Phosphatase 123 Units/L (34-104) H 04/07/18 19:25 Serum Total Protein 6.1 g/dL (6.4-8.9) L 04/07/18 19:25 Albumin 3.3 g/dL (3.5-5.7) L 04/07/18 19:25 Lipase 5 Units/L (11-82) L 04/07/18 19:25 Ur Specific [place] < 1.005 (1.010-1.025) L 04/07/18 18:48 - Microbiology Findings Microbiology Findings: Microbiology, Last 48 Hours 04/08/18 00:56 Blood Culture - Preliminary Peripheral Venipuncture Culture is incubating and being continuously monitored for growth. Final report to follow. 04/08/18 00:56 Blood Culture - Preliminary Peripheral Venipuncture Culture is incubating and being continuously monitored for growth. Final report to follow. 04/08/18 00:56 Blood Fungal Culture - Preliminary Peripheral Venipuncture Culture is incubating and being continuously monitored for growth. Final report to follow. - Clinical Findings Intake & Output: Intake & Output 04/07/18 04/08/18 04/08/18 23:59 07:59 15:59 Intake Total 1000 / 1000 2200 / 2200 Output Total 0 / 0 0 / 0 0 / 0 Balance 1000 / 1000 2200 / 2200 0 / 0 Weight 54.431 kg - Attending Attestation I examined this patient and my medical decision-making was reviewed with the Resident Physician. I agree with the documented findings, disposition and treatment plan as described except to the extent set forth below. We independently had [id number] contact with the patient Patient seen and examined at bedside Labs, radiology, chart personally reviewed. Impression: Lung abscess COPD Tobacco abuse Abuse Recs: -Radiographically appears to be improving clinically there is some question about persistence of symptoms which has prompted formal consultation with infectious disease to review the current management and see if biopsy is necessary if we can continue to treat from there perspective empirically. Agree with continuation of IV antimicrobials while nothing by mouth it is possible that she would need to have a longer course of IV antimicrobials if there is question about absorption/nothing by mouth status. Not see any reason to switch from current PO/IV beta-lactam regimen (Augmentin/Unasyn) -Starting inhaler regimen -Tobacco abuse counseling given
--- NOTE | 2018-04-08 10:43 | Gastroenterology Consult Note ---
Date of Encounter: 04/08/18 Time of Encounter: 09:45 - Time Spent With Patient Total time spent is greater than 50% in coordination of care (as documented) at patient's floor/unit and/or counseling patient: GI History of Present Illness - Data of Consult Patient: known to practice within the last 3 years Consult date: 04/08/18 Requesting Physician: Alex Velasquez MD - Consult Narrative Reason for consult: Small bowel obstruction History of present illness: Ms. Abdi is a 42 year old female with PMHx of gastric ulcers, bipolar disorder, opiate abuse, alcohol abuse, pancreatitis, gastric bypass, on supplemental TPN due to severe protein caloric malnutrition who presented to the ED with worsening abdominal pain that is different from her regular ulcer inducing pain. She also complains of having chills and a higher temperature than normal. CT A/P showed focally dilated small bowel in the mid abdomen concerning for low grade small bowel obstruction. Procedures: EGD 03/12/2018 Dr. Manley: Non-bleeding gastric anastomotic ulcer 3cm in largest dimension. EGD 12/19/2017 Dr. Manley: Non-bleeding deep cratered anastomotic ulcers with no stigmata of bleeding, involving about 60% of circumference of anastomosis. EGD 10/04/2017 Dr. aMnley: Non-bleeding gastric ulcer at anastomosis, moderate chronic inflammation. EGD 05/14/2016 Dr. Becker: Plastic water bottle cap in esophagus. EGD 10/2014 superficial ulcer at anastomosis, stomach with pseudo-diverticuli. EGD 11/2012 gastric ulcer, anastomosis ulcer,biopsy negative EGD 08/2012 anastomosis ulcer Colonoscopy 07/2012 colon redundant/tortuous EGD 02/2012 esophagitis at GE junction NSAID: None Anticoagulation: None A/P 1. Small Bowel Obstruction: CT A/P showed focally dilated small bowel in the mid abdomen concerning for low grade small bowel obstruction. Continue to keep patient NPO. Complete KUB today. Consider consulting General Surgery if not improving. 2. Gastric Ulcer: Continue BID PPI IV. Past Med Surg Social Fam HX - Past Medical History Medical history: arthritis, cirrhosis, pulmonary embolus, other Additional medical history: wpw, Psychiatric history: anxiety, bipolar, depression, prior suicide attempt - Past Surgical History Surgical History: appendectomy, cholecystectomy, herniorrhaphy, hysterectomy, other, bariatric surgery Additional surgical history: colon resection,hernia x6,gastric bypass,bowel obstruction, implanted port - Social History Smoking Status: Current every day smoker Packs per day: 1 Smokeless Tobacco Status: No Alcohol use: none Drug use: none - Family History Father Adopted: No Living Status: Still Living Hx Family Cardiac Disorders: No Hx Family Respiratory Disorders: No Hx Family Cancer: No Hx Family GI Disorders: No Hx Family Endocrine Disorder: No Hx Family Neuromuscular Disorders: No Hx Family Neurologic Disorders: No Hx Family HEENT Disorders: No Hx Family Autoimmune Disorders: No Grandfather Living Status: Hx Family Cardiac Disorders: Yes ([place]) Maternal Grandmother Living Status: Still Living Hx Family Cancer: Yes (Lung) Sister Living Status: Still Living Hx Family Cancer: Yes (Ovarian) Mother Adopted: No Living Status: Still Living Hx Family Cardiac Disorders: Yes Hx Family Respiratory Disorders: No Hx Family Cancer: No Hx Family GI Disorders: No Hx Family Endocrine Disorder: No Hx Family Neuromuscular Disorders: No Hx Family Neurologic Disorders: No Hx Family HEENT Disorders: No Hx Family Autoimmune Disorders: No - Gastrointestinal Gastrointestinal: Present: as per HPI - Constitutional Constitutional: as per HPI - EENT Eyes: as per HPI Ears: Present: as per HPI Nose, mouth and throat: Present: as per HPI - Cardiovascular Cardiovascular ROS: Present: as per HPI - Respiratory Respiratory IM: Present: as per HPI - Genitourinary Genitourinary: Absent: change in color, Urinary frequency - Neurological ROS Neurological GI: Present: as per HPI - Hematologic/Lymphatic Hematologic/Lymphatic pediatric: Present: as per HPI - Musculoskeletal Musculoskeletal ROS GI: Present: as per HPI - Integumentary Integumentary GI: Present: as per HPI - Psychiatric ROS Psychiatric GI: Present: as per HPI - Endocrine Endocrine IM: Present: as per HPI - Constitutional Vitals: Temp Pulse Resp BP Pulse Ox 98.0 F 68 16 86/50 100 04/08/18 10:39 04/08/18 10:39 04/08/18 10:39 04/08/18 10:39 04/08/18 10:39 General appearance: Present: cooperative, A&O X 3, no acute distress, answers questions appropriately - Head Head exam: Present: atraumatic, normocephalic - Eye Eye exam: Present: normal appearance, sclera anicteric - ENT ENT exam: Present: mucous membranes dry - Neck Neck exam general surgery: Present: normal inspection, trachea midline - Respiratory Respiratory exam: Present: decreased breath sounds, CTAB. Absent: rales, rhonchi - Cardiovascular Cardiovascular exam: Present: RRR, +S1, +S2 - GI/Abdominal GI/Abdominal exam: Present: soft, tenderness (epigastric), no peritoneal signs. Absent: distended, firm, guarding - Rectal Rectal exam: Present: deferred - Extremities Exam Extremities exam: Present: warm - Neurological Exam Neurological exam: Present: no focal deficits - Psychiatric Psychiatric exam: Present: normal affect, normal mood - Skin Skin exam: Present: dry, intact, normal color, warm Results - Labs CBC & Chem 7: 04/08/18 04:10 04/08/18 04:10 Labs: Last Result Calcium 8.2 mg/dL (8.6-10.3) L 04/08/18 04:10 Entire Visit Hgb 9.6 g/dL (11.5-15.4) L D 04/08/18 04:10 Hct 29.6 % (35.3-44.9) L 04/08/18 04:10 PT 12.9 Seconds (9.4-12.1) H 04/07/18 19:25 Total Bilirubin 0.2 mg/dL (0.3-1.0) L 04/07/18 19:25 AST 17 Units/L (13-39) 04/07/18 19:25 ALT 11 Units/L (7-52) 04/07/18 19:25 Lipase 5 Units/L (11-82) L 04/07/18 19:25 - ABG ABG results: PT/INR, D-dimer PT 12.9 Seconds (9.4-12.1) H 04/07/18 19:25 - Impressions Impressions Abdomen/Pelvis CT 04/07/18 19:29 IMPRESSION: 1. Three peripherally enhancing loculated fluid collections in the peripheral right lower lobe. Findings are suggestive of possible intrapulmonary abscesses, decreased in sizes since comparison study. Superimposed opacities in the right lower lobe and the lingula suspicious for pneumonia. 2. Segment of dilated small bowel in the mid abdomen. Findings are concerning for low grade small bowel obstruction. D/ / Yair Sepulveda MD / Yair Sepulveda MD Interpreting Provider: Yair Sepulveda MD Chest CT 04/07/18 19:29 IMPRESSION: 1. Three peripherally enhancing loculated fluid collections in the peripheral right lower lobe. Findings are suggestive of possible intrapulmonary abscesses, decreased in sizes since comparison study. Superimposed opacities in the right lower lobe and the lingula suspicious for pneumonia. 2. Segment of dilated small bowel in the mid abdomen. Findings are concerning for low grade small bowel obstruction. D/ / Yair Sepulveda MD / Yair Sepulveda MD Interpreting Provider: Yair Sepulveda MD Consult Discharge Plan - Plan Referrals: Fam Rubin DO [Primary Care Provider] -
[2018-04-08] MEDS ORDERED: Tiotropium 18 MCG inhalation IH SCH (10:45)
[2018-04-08] MEDS: Budesonide/Formoterol 160/4.5 1 PUFF INH IH SCH ×2 (11:24→19:37)
[2018-04-08] MEDS: D5% in Lactated Ringers 1,000 ML IVC SCH ×2 (11:44→18:47)
[2018-04-08] MEDS ORDERED: Insulin LISPRO 300 UNITS/3 ML VIAL SQ SCH (12:00)
--- NOTE | 2018-04-08 12:35 | Infectious Disease Consult ---
Date of Encounter: 04/08/18 Time of Encounter: 12:23 Assessment and Plan (1) History of Flynn-en-Y gastric bypass Status: Chronic (2) Lung abscess Status: Acute Assessment and plan: 2 small isolated fluid collection in the right lung base Causative organism not clear Improved on Augmentin at smaller than previous Previous sputum culture on the patient grew klebsiella oxytoca that is intermediate to Augmentin and resistant to ampicillin Patient also had history of MRSA abdominal wound Patient apparently allergic to Keflex with rash Tells me now she has a rash while on Augmentin Recommend levofloxacin and doxycycline by mouth probably for 3 weeks to 4 weeks total. We will discuss with the pulmonary team to see if they are okay with that plan While on antibiotic monitor labs for Dr. hernandez especially with history of Jomns-Sszcptfub-Ymtyf and levofloxacin. Qualifiers: Pulmonary abscess pneumonia presence: with pneumonia Laterality: left Lung location: unspecified part of lung Qualified Code(s): J85.1 - Abscess of lung with pneumonia (3) Pneumonia Status: Acute Assessment and plan: Causative organism not clear Check MRSA screen Check urine pneumococcal antigen Check sputum culture if possible Qualifiers: Pneumonia type: due to unspecified organism Laterality: left Lung location: unspecified part of lung Qualified Code(s): J18.9 - Pneumonia, unspecified organism (4) History of pulmonary embolism Status: Acute Assessment and plan: on low-dose hparin (5) Small bowel obstruction Status: Acute (6) PUD (peptic ulcer disease) Status: Acute (7) COPD (chronic obstructive pulmonary disease) Status: Acute Qualifiers: COPD type: unspecified COPD Qualified Code(s): J44.9 - Chronic obstructive pulmonary disease, unspecified (8) WPW (Vxfoo-Fuliujqyw-Uoshu syndrome) Status: Acute Assessment and plan: History of ablation at age 18 Infectious Disease HPI - Data of Consult Patient: new to practice Consult date: 04/08/18 Requesting Physician: Alex Velasquez MD Primary Care Provider: Fam Rubin DO - Consult Narrative Reason for consult: Antibiotics management History of present illness: Ms. Abdi is a 42 year old female Patient is a 6-year-old woman who presented to [facility] on 04/07/2018 for abdominal pain. We are consulted on 04/08/2018 for antibiotics recommendations. Patient is a 42-year-old woman who has an extensive past medical history mentioned below including history of gastric bypass surgery about 20 years ago with severe complications including bowel obstruction, pancreatitis, further surgical resection with short bowel syndrome and requiring TPN supplement through a central line in the right chest placed in October. Patient also has a history of liver cirrhosis and multiple gastric ulcers initially presented to [facility] 03/23/[address] abdomen and pelvis on 03/21/2018 for abdominal pain and was found to have persistent area of lung consolidation with peripheral low-attenuation fluid collection with thick enhancing rim. Lung abscess with possible small empyema suspected as a complication of the pneumonia. Patient was admitted and underwent a CT chest with contrast which revealed consolidation in the right lower lobe lateral enhancing fluid collection measuring 51.11.1 cm appears to be loculated in the pleural space suggesting empyema. Patient was evaluated by pulmonary and they recommended conservative approach. Patient was discharged on Augmentin. On further reviewing of her cultures. Patient had had a history of klebsiella oxytoca in the sputum back in October 2016, Escherichia coli in the urine back in February 2016 and MRSA abdominal wound in September 2015. He klebsiella oxytoca was resistant to ampicillin and intermediate to Unasyn. Was susceptible to levofloxacin. On this admission patient came with worsening abdominal pain different to her regular ulcer and reducing pain. She is also complaining of having chills and high temperature than normal. Since admission, patient has been afebrile, tachycardic and tachypneic initially. Presenting labs revealed a WBC of 8.8 with normal differential if an ything she had elevated lymphocytes at 50%. BUN of 5 creatinine of 0.4 lactic acid of 1.3. A urinalysis was obtained and it came back negative. Blood cultures 3 were obtained and are no growth to date. CT chest revealed 3 perforated enhancing loculated fluid collections in the peripheral right lower lobe findings are suggestive of possible intraluminal abscesses, decreased in size since comparison study. Super imposed opacities in the right lower lobe and lingula suspicious for pneumonia. Segments of dilated small bowel in the mid abdomen concerning for low grade small bowel obstruction. CC: Alex Velasquez MD Past Med Surg Social Fam HX - Past Medical History Medical history: arthritis, cirrhosis, pulmonary embolus, other Additional medical history: wpw, Psychiatric history: anxiety, bipolar, depression, prior suicide attempt - Past Surgical History Surgical History: appendectomy, cholecystectomy, herniorrhaphy, hysterectomy, other, bariatric surgery Additional surgical history: colon resection,hernia x6,gastric bypass,bowel obstruction, implanted port - Social History Smoking Status: Current every day smoker Packs per day: 1 Smokeless Tobacco Status: No Alcohol use: none Drug use: none - Family History Father Adopted: No Living Status: Still Living Hx Family Cardiac Disorders: No Hx Family Respiratory Disorders: No Hx Family Cancer: No Hx Family GI Disorders: No Hx Family Endocrine Disorder: No Hx Family Neuromuscular Disorders: No Hx Family Neurologic Disorders: No Hx Family HEENT Disorders: No Hx Family Autoimmune Disorders: No Grandfather Living Status: Hx Family Cardiac Disorders: Yes ([place]) Maternal Grandmother Living Status: Still Living Hx Family Cancer: Yes (Lung) Sister Living Status: Still Living Hx Family Cancer: Yes (Ovarian) Mother Adopted: No Living Status: Still Living Hx Family Cardiac Disorders: Yes Hx Family Respiratory Disorders: No Hx Family Cancer: No Hx Family GI Disorders: No Hx Family Endocrine Disorder: No Hx Family Neuromuscular Disorders: No Hx Family Neurologic Disorders: No Hx Family HEENT Disorders: No Hx Family Autoimmune Disorders: No Infectious Disease-CN:Meds Cyanocobalamin (B-12) [Vitamin B12] 1,000 mcg IM QMONTH 12/18/17 [History] Ergocalciferol (VITAMIN D2) [Vitamin D2] 50,000 unit PO 2XW 12/18/17 [History] Furosemide [Lasix] 20 mg PO DAILY 12/18/17 [History] Lipase/Protease/Amylase [Creon Dr 36,000 Units Capsule] 36,000 units PO TIDAC 12/18/17 [History] OLANZapine [Zyprexa] 20 mg PO HS 12/18/17 [History] Sucralfate [Carafate] 1 gm PO QID 12/18/17 [History] Vilazodone HCl [Viibryd] 40 mg PO DAILY 12/18/17 [History] Buprenorphine HCl 8 mg SL BID 03/22/18 [History] Clinimix E 5%-15% SOLUTION [Clinimix E 5%-15% Solution] 1,540 ml IV HS 03/22/18 [History] Dextroamphetamine/Amphetamine [Adderall 20 mg Tablet] 20 mg PO BID 03/22/18 [History] Esomeprazole Sodium [Nexium I.v] 40 mg IV BID 03/22/18 [History] Spironolactone [Aldactone] 50 - 100 mg PO DAILY 03/22/18 [History] raNITIdine HCl [Zantac] 300 mg PO BID 03/22/18 [History] Amoxicillin/Clavulanate [Augmentin] 875 mg PO BID 04/07/18 [History] Allergy/AdvReac Type Severity Reaction Status Date / Time cephalexin Allergy Rash Verified 03/29/18 09:16 clindamycin Allergy Rash Verified 03/29/18 09:16 nalbuphine [From Nubain] AdvReac "didn't Verified 03/29/18 09:16 [address] the way it made me feel" Review of systems: 10 point review of systems done, negative other for what is mentioned in history of present illness. Exam - Constitutional Vitals: Temp Pulse Resp BP Pulse Ox 98.0 F 68 16 86/50 100 04/08/18 10:39 04/08/18 10:39 04/08/18 10:39 04/08/18 10:39 04/08/18 10:39 General appearance: cooperative, no acute distress, no febrile - Head Head exam: Present: atraumatic, normocephalic - Eye Eye exam: Present: EOMI, PERRL - Neck Neck exam: Present: full ROM. Absent: meningismus - Respiratory Respiratory exam: Present: CTAB. Absent: rhonchi, wheezes - Cardiovascular Cardiovascular exam: Present: RRR, +S1, +S2 Additional comments: Central line right chest intact with no signs of infection - GI/Abdominal GI/Abdominal exam: Present: normal bowel sounds, soft. Absent: tenderness - Extremities Exam Extremities exam: Present: full ROM, normal inspection - Neurological Exam Neurological exam: Present: alert, oriented X3. Absent: speech deficit - Psychiatric Psychiatric exam: Present: normal affect, normal mood - Skin Skin exam: Present: normal color. Absent: rash Infectious Disease CN: Results - Labs CBC & Chem 7: 04/08/18 04:10 04/08/18 04:10 Cultures: Cultures 04/08/18 00:56 Blood Culture - Preliminary Peripheral Venipuncture Culture is incubating and being continuously monito red for growth. Final report to follow. 04/08/18 00:56 Blood Culture - Preliminary Peripheral Venipuncture Culture is incubating and being continuously monitored for growth. Final report to follow. 04/08/18 00:56 Blood Fungal Culture - Preliminary Peripheral Venipuncture Culture is incubating and being continuously monitored for growth. Final report to follow. Serology: Serology 04/07/18 04/07/18 Range/Units 19:30 18:48 Urine Color Yellow (Yellow) Urine Clarity Clear (Clear) Urine pH 6.5 (5.0-8.0) pH Units Ur Specific Leopold < 1.005 L (1.010-1.025) Urine Protein Negative (Neg-Trace) mg/dL Urine Glucose (UA) Normal (Normal) mg/dL Urine Ketones Negative (Negative) mg/dL Urine Blood Negative (Negative) Urine Nitrite Negative (Negative) Urine Bilirubin Negative (Negative) Urine Urobilinogen Normal (Normal) mg/dL Ur Leukocyte Esterase Negative (Negative) Ur Culture Indicated? NO (NO) Stool Occult Bld Scrn Negative (Negative) Consult Discharge Plan - Plan Referrals: Fam Rubin DO [Primary Care Provider] -
--- NOTE | 2018-04-08 12:35 | Internal Med Progress Note ---
Hospitalist Progress Note - Encounter Date of Encounter: 04/08/18 Time of Encounter: 12:32 - Subjective Interval History: I have seen and evaluated the patient at bedside. Patient reports feeling weak, reports abdominal discomfort, but denies nausea or vomiting. she reports that her BP usually runs in the low 90s. She denies chest pain, or shortness of b reath. - Exam Vitals: Temp Pulse Resp BP Pulse Ox 98.0 F 68 16 86/50 100 04/08/18 10:39 04/08/18 10:39 04/08/18 10:39 04/08/18 10:39 04/08/18 10:39 Exam: Vitals: Reviewed. General: Alert and oriented x4. In mild distress due to abdominal discomfort. Skin: Dry oral mucosa. Normal color, no rash, no lesions. Cardiovascular:Normal S1 & S2, no rubs, murmurs or gallops. No JVD. Pulse regular. Lungs: CTA b/l, no wheezes or crackles. Abdomen: Soft, no rigidity, mild generalized tender to superficial palpation. hypoactive bowel sounds. Extremities: No deformity, no edema or tenderness, no joint swelling or clubbing. Neurological: Normal cognition and motor skills. Rest of the physical exam is non contributory - Assessment and Plan (1) Hypotension Current Visit: Yes Status: Acute Assessment and Plan: Blood pressure has been running in the low sides with a reading of 76/51 the lowest. Patient asymptomatic, not tachycardic. She reports that her blood pressure runs in the 90s most of the time. Hypotension could be related to early signs of sepsis in this patient with pneumonia. Plan: Vital signs every 3 hours. On D5LR@125mls/hr will monitor closely for signs of volume overload. Patient is on broad-spectrum antibiotic coverage Blood cultures: No growth, pending final report. ID has been consulted. (2) Small bowel obstruction Current Visit: Yes Status: Acute Assessment and Plan: Patient is NPO. accu-checks Q6HRs, plus lispro low dose sliding scale GI consulted, recommendations appreciated will consult surgery due to patient surgical Hx. on D5LR@125mls/hr Continue antiemetics and PPIs IV. serial KUBs (3) Empyema lung Current Visit: Yes Status: Acute Assessment and Plan: improving based on imagine. Nurse Orthopedic consulted recommended medical management and to have a repeat CT of the chest in 4 weeks after hospital d/c. ID has been consulted for antibiotics management. recommendations appreciated. (4) Protein-calorie malnutrition, moderate Current Visit: Yes Status: Chronic Assessment and Plan: research development manager team consulted to start patient on TPN. (5) PUD (peptic ulcer disease) Current Visit: Yes Status: Acute Assessment and Plan: Continue pantoprazole 40 mg IV daily. (6) COPD (chronic obstructive pulmonary disease) Current Visit: Yes Status: Chronic Assessment and Plan: Patient not on acute exacerbation. Continue Symbicort. We will start bronchodilators every 4 hours when necessary. (7) WPW (Mjgae-Hiepijhpr-Myply syndrome) Current Visit: Yes Status: Chronic Assessment and Plan: Close electrolyte monitoring. Continue monitoring manager DVT Prophylaxis: Patient heparin 5000 units subcutaneous every every 8 hours. - Summary of Assessment and Plan Summary of Assessment and Plan: Patient to remain in the hospital due to small bowel obstruction. Empyema, and IV antibiotics. - Time Spent with Patient Total time spent is greater than 50% in coordination of care (as documented) at patient's floor/unit and/or counseling patient: Greater than 35 minutes (40) Plan of Care Discussed with: patient (and the nurse.) Internal Medicine: Result - Labs CBC & Chem 7: 04/08/18 04:10 04/08/18 04:10 Labs: Short CBC 04/07/18 04/08/18 Range/Units 19:25 04:10 WBC 8.8 6.6 (4.3-11.1) K/mcL Hgb 11.4 L 9.6 L D (11.5-15.4) g/dL Hct 34.9 L 29.6 L (35.3-44.9) % Plt Count 289 235 (140-400) K/mcL Neutrophils # 3.1 1.8 (1.6-8.9) K/mcL BMP 04/07/18 04/08/18 19:25 04:10 Sodium 137 141 Potassium 3.8 3.9 Chloride 103 109 H Carbon Dioxide 28 29 BUN 5 L 4 L Creatinine 0.44 L 0.35 L Glucose 95 112 H Calcium 8.5 L 8.2 L Liver Function 04/07/18 Range/Units 19:25 Total Bilirubin 0.2 L (0.3-1.0) mg/dL AST 17 (13-39) Units/L ALT 11 (7-52) Units/L Alkaline Phosphatase 123 H (34-104) Units/L Albumin 3.3 L (3.5-5.7) g/dL Urine 04/07/18 Range/Units 18:48 Urine Color Yellow (Yellow) Urine Clarity Clear (Clear) Urine pH 6.5 (5.0-8.0) pH Units Ur Specific Hilliard < 1.005 L (1.010-1.025) Urine Protein Negative (Neg-Trace) mg/dL Urine Glucose (UA) Normal (Normal) mg/dL - ABG Interpretation ABG results: PT/INR, D-dimer PT 12.9 Seconds (9.4-12.1) H 04/07/18 19:25 - Impressions Impressions Abdomen/Pelvis CT 04/07/18 19:29 IMPRESSION: 1. Three peripherally enhancing loculated fluid collections in the peripheral right lower lobe. Findings are suggestive of possible intrapulmonary abscesses, decreased in sizes since comparison study. Superimposed opacities in the right lower lobe and the lingula suspicious for pneumonia. 2. Segment of dilated small bowel in the mid abdomen. Findings are concerning for low grade small bowel obstruction. D/ / Yair Sepulveda MD / Yair Sepulveda MD Interpreting Provider: Yair Sepulveda MD Chest CT 04/07/18 19:29 IMPRESSION: 1. Three peripherally enhancing loculated fluid collections in the peripheral right lower lobe. Findings are suggestive of possible intrapulmonary abscesses, decreased in sizes since comparison study. Superimposed opacities in the right lower lobe and the lingula suspicious for pneumonia. 2. Segment of dilated small bowel in the mid abdomen. Findings are concerning for low grade small bowel obstruction. D/ / Yair Sepulveda MD / Yair Sepulveda MD Interpreting Provider: Yair Sepulveda MD Consult Discharge Plan - Plan Referrals: Fam Rubin DO [Primary Care Provider] - (1) Hypotension Qualifiers: Hypotension type: unspecified hypotension type Qualified Code(s): I95.9 - Hypotension, unspecified (6) COPD (chronic obstructive pulmonary disease) Qualifiers: COPD type: unspecified COPD Qualified Code(s): J44.9 - Chronic obstructive pulmonary disease, unspecified
[2018-04-08] MEDS ORDERED: Albuterol 2.5 MG/3 ML NEBULIZER IH PRN (12:44)
--- NOTE | 2018-04-08 14:44 | General Surgery Consult Note ---
<Frances Giron - Last Filed: 04/08/18 15:35> Date of Encounter: 04/08/18 Time of Encounter: 14:39 Assessment and Plan (1) Small bowel obstruction Current Visit: Yes Status: Suspected CT with Segment of focally dilated small bowel in the mid abdomen; KUB 04/08/2018 with barium noted in the rectum. No evidence of SBO. Pt states difficulty passing BM on Sunday, otherwise she typically has loose stool. Her abdominal pain n/v are at baseline. There is no evidence of SBO. Findings could likely be related to resolving ileus given her resolving Empyema. No acute surgical intervention is indicated. May have CLD and advance diet as tolerated per primary team Recommend metamucil caplets or benefiber twice daily for stool bulking. PRN Colace BID or Miralax in addition to fiber Anticipate sing off per attending attestation History of Present Illness Consult date: 04/08/18 (Dr. Tad Bradford) Reason for consult: other Requesting physician: Cody Palm History of present illness: Patient's past medical, surgical, social, and family history have been reviewed per the electronic medical record. His been updated were indicated.. Surgery has been consultative for recommendations regarding a possible partial small bowel obstruction [place] presented on 04/07/2018 for complaints of abdominal pain and nausea or vomiting. Per patient, she was recommended to come to the hospital by her manager wholesale. At baseline she has chronic nausea and vomiting. She reports she typically has a bowel movement multiple times daily that is loose however on Sunday she felt constipated, had a hard bowel movement in there was some blood in the stool. She reports abdominal discomfort that is chronic in nature, aching, allover the abdomen, and is sometimes a 10 out of 10. She denies passing flatus today or having a bowel movement. She denies fever, chills, chest pain, shortness of breath, urinary signs or symptoms, black, or tarry stool. Per record review of G.I. consult, her procedures are as follows: Procedures: EGD 03/12/2018 Dr. Manley: Non-bleeding gastric anastomotic ulcer 3cm i n largest dimension. EGD 12/19/2017 Dr. Manley: Non-bleeding deep cratered anastomotic ulcers with no s tigmata of bleeding, involving about 60% of circumference of anastomosis. EGD 10/04/2017 Dr. Manley: Non-bleeding gastric ulcer at anastomosis, moderate chronic inflammation. EGD 05/14/2016 Dr. Becker: Plastic water bottle cap in esophagus. EGD 10/2014 superficial ulcer at anastomosis, stomach with pseudo-diverticuli. EGD 11/2012 gastric ulcer, anastomosis ulcer,biopsy negative EGD 08/2012 anastomosis ulcer Colonoscopy 07/2012 colon redundant/tortuous EGD 02/2012 esophagitis at GE junction NSAID: None Anticoagulation: None Past Med Surg Social Fam HX - Past Medical History Source: patient, old records reviewed Medical history: arthritis, cirrhosis, pulmonary embolus, other Additional medical history: wpw, Psychiatric history: anxiety, bipolar, depression, prior suicide attempt - Past Surgical History Surgical History: appendectomy, cholecystectomy, herniorrhaphy, hysterectomy, other, bariatric surgery Additional surgical history: colon resection,hernia x6,gastric bypass,bowel obstruction, implanted port - Social History Smoking Status: Current every day smoker Packs per day: 1 Smokeless Tobacco Status: No Alcohol use: none Drug use: none - Family History Father Adopted: No Living Status: Still Living Hx Family Cardiac Disorders: No Hx Family Respiratory Disorders: No Hx Family Cancer: No Hx Family GI Disorders: No Hx Family Endocrine Disorder: No Hx Family Neuromuscular Disorders: No Hx Family Neurologic Disorders: No Hx Family HEENT Disorders: No Hx Family Autoimmune Disorders: No Grandfather Living Status: Hx Family Cardiac Disorders: Yes (DE) Maternal Grandmother Living Status: Still Living Hx Family Cancer: Yes (Lung) Mother Adopted: No Living Status: Still Living Hx Family Cardiac Disorders: Yes Hx Family Respiratory Disorders: No Hx Family Cancer: No Hx Family GI Disorders: No Hx Family Endocrine Disorder: No Hx Family Neuromuscular Disorders: No Hx Family Neurologic Disorders: No Hx Family HEENT Disorders: No Hx Family Autoimmune Disorders: No Sister Living Status: Still Living Hx Family Cancer: Yes (Ovarian) Medications and Allergies RX: Cyanocobalamin (B-12) [Vitamin B12] 1,000 mcg IM QMONTH 12/18/17 [History] RX: Ergocalciferol (VITAMIN D2) [Vitamin D2] 50,000 unit PO 2XW 12/18/17 [History] RX: Furosemide [Lasix] 20 mg PO DAILY 12/18/17 [History] RX: Lipase/Protease/Amylase [Virgilio Ramos 36,000 Units Capsule] 36,000 units PO TIDAC 12/18/17 [History] RX: OLANZapine [Zyprexa] 20 mg PO HS 12/18/17 [History] RX: Sucralfate [Carafate] 1 gm PO QID 12/18/17 [History] RX: Vilazodone HCl [Viibryd] 40 mg PO DAILY 12/18/17 [History] RX: Buprenorphine HCl 8 mg SL BID 03/22/18 [History] RX: Clinimix E 5%-15% SOLUTION [Clinimix E 5%-15% Solution] 1,540 ml IV HS 03/22/18 [History] RX: Dextroamphetamine/Amphetamine [Adderall 20 mg Tablet] 20 mg PO BID 03/22/18 [History] RX: Esomeprazole Sodium [Nexium I.v] 40 mg IV BID 03/22/18 [History] RX: Spironolactone [Aldactone] 50 - 100 mg PO DAILY 03/22/18 [History] RX: raNITIdine HCl [Zantac] 300 mg PO BID 03/22/18 [History] Amoxicillin/Clavulanate [Augmentin] 875 mg PO BID 04/07/18 [History] Allergy/AdvReac Type Severity Reaction Status Date / Time cephalexin Allergy Rash Verified 03/29/18 09:16 clindamycin Allergy Rash Verified 03/29/18 09:16 nalbuphine [From Nubain] AdvReac "didn't Verified 03/29/18 09:[address] it made me feel" Review of Systems All systems PM: reviewed and no additional remarkable complaints except as stated All systems PM: The remainder of the systems were reviewed and are negative General Surgery Exam Initial Vital Signs Temp Pulse Resp BP Pulse Ox 98.7 F 109 20 127/84 96 04/07/18 18:26 04/07/18 18:26 04/07/18 18:26 04/07/18 18:26 04/07/18 18:26 - General physical appearance chronically ill, other (emaciated; ashen) - ENT normal nares, atraumatic, normocephalic - Respiratory normal expansion, normal respiratory effort, clear to auscultation - Cardiovascular Cardiovascular exam: Present: RRR - Abdomen Abdomen general surgery: Present: bowel sounds present, soft, tender - Integumentary Integumentary general surgery: Present: warm and dry, other (ashen color) - Neurologic Present: CN 2-12 grossly intact, normal coordination, normal sensation - Musculoskeletal Present: normal gait, normal posture - Psychiatric Psychiatric general surgery: Present: A&Ox3, appropriate, oriented to person, oriented to place, oriented to time, speech is normal, memory intact Exam Initial Vital Signs Temp Pulse Resp BP Pulse Ox 98.7 F 109 20 127/84 96 04/07/18 18:26 04/07/18 18:26 04/07/18 18:26 04/07/18 18:26 04/07/18 18:26 Results - Labs 04/08/18 04:10 04/08/18 04:10 Abnormal lab results RBC 3.62 M/mcL (3.82-4.97) L 04/08/18 04:10 Hgb 9.6 g/dL (11.5-15.4) L D 04/08/18 04:10 Hct 29.6 % (35.3-44.9) L 04/08/18 04:10 MCV 81.8 fL (83.0-100.0) L 04/08/18 04:10 MCH 26.5 pg (28.0-33.3) L 04/08/18 04:10 RDW 17.8 % (11.5-14.5) H 04/08/18 04:10 MPV 8.8 fL (9.4-12.4) L 04/08/18 04:10 PT 12.9 Seconds (9.4-12.1) H 04/07/18 19:25 Chloride 109 mEq/L (98-107) H 04/08/18 04:10 BUN 4 mg/dL (6-20) L 04/08/18 04:10 Creatinine 0.35 mg/dL (0.60-1.20) L 04/08/18 04:10 Glucose 112 mg/dL (70-105) H 04/08/18 04:10 POC Glucose 110 mg/dL (70-99) H 04/08/18 10:56 Calcium 8.2 mg/dL (8.6-10.3) L 04/08/18 04:10 Total Bilirubin 0.2 mg/dL (0.3-1.0) L 04/07/18 19:25 Alkaline Phosphatase 123 Units/L (34-104) H 04/07/18 19:25 Serum Total Protein 6.1 g/dL (6.4-8.9) L 04/07/18 19:25 Albumin 3.3 g/dL (3.5-5.7) L 04/07/18 19:25 Lipase 5 Units/L (11-82) L 04/07/18 19:25 Ur Specific [place] < 1.005 (1.010-1.025) L 04/07/18 18:48 Diabetes panel 04/07/18 04/08/18 Range/Units 19:25 04:10 Sodium 137 141 (136-145) mEq/L Potassium 3.8 3.9 (3.5-5.1) mEq/L Chloride 103 109 H (98-107) mEq/L Carbon Dioxide 28 29 (23-29) mEq/L BUN 5 L 4 L (6-20) mg/dL Creatinine 0.44 L 0.35 L (0.60-1.20) mg/dL Glucose 95 112 H (70-105) mg/dL Calcium 8.5 L 8.2 L (8.6-10.3) mg/dL AST 17 (13-39) Units/L ALT 11 (7-52) Units/L Alkaline Phosphatase 123 H (34-104) Units/L Albumin 3.3 L (3.5-5.7) g/dL Calcium panel 04/07/18 04/08/18 Range/Units 19:25 04:10 Calcium 8.5 L 8.2 L (8.6-10.3) mg/dL Phosphorus 3.9 (2.7-4.5) mg/dL Albumin 3.3 L (3.5-5.7) g/dL Pituitary panel 04/07/18 04/08/18 Range/Units 19:25 04:10 Sodium 137 141 (136-145) mEq/L Potassium 3.8 3.9 (3.5-5.1) mEq/L Chloride 103 109 H (98-107) mEq/L Carbon Dioxide 28 29 (23-29) mEq/L BUN 5 L 4 L (6-20) mg/dL Creatinine 0.44 L 0.35 L (0.60-1.20) mg/dL Glucose 95 112 H (70-105) mg/dL Calcium 8.5 L 8.2 L (8.6-10.3) mg/dL Adrenal panel 04/07/18 04/08/18 Range/Units 19:25 04:10 Sodium 137 141 (136-145) mEq/L Potassium 3.8 3.9 (3.5-5.1) mEq/L Chloride 103 109 H (98-107) mEq/L Carbon Dioxide 28 29 (23-29) mEq/L BUN 5 L 4 L (6-20) mg/dL Creatinine 0.44 L 0.35 L (0.60-1.20) mg/dL Glucose 95 112 H (70-105) mg/dL Calcium 8.5 L 8.2 L (8.6-10.3) mg/dL Total Bilirubin 0.2 L (0.3-1.0) mg/dL AST 17 (13-39) Units/L ALT 11 (7-52) Units/L Alkaline Phosphatase 123 H (34-104) Units/L Albumin 3.3 L (3.5-5.7) g/dL All other labs normal. - Imaging Abdominal x-ray: report reviewed, image reviewed CT scan - abdomen: report reviewed CT scan - chest: image reviewed CT scan - pelvis: report reviewed, image reviewed Consult Discharge Plan - Plan Referrals: Fam Rubin DO [Primary Care Provider] - <Tda Bradford - Last Filed: 04/09/18 13:05> Date of Encounter: 04/08/18 Assessment and Plan (1) Small bowel obstruction Current Visit: Yes Status: Suspected Review of Systems All systems PM: The remainder of the systems were reviewed and are negative General Surgery Exam Initial Vital Signs Temp Pulse Resp BP Pulse Ox 98.7 F 109 20 127/84 96 04/07/18 18:26 04/07/18 18:26 04/07/18 18:26 04/07/18 18:26 04/07/18 18:26 Exam Initial Vital Signs Temp Pulse Resp BP Pulse Ox 98.7 F 109 20 127/84 96 04/07/18 18:26 04/07/18 18:26 04/07/18 18:26 04/07/18 18:26 04/07/18 18:26 Results - Labs 04/08/18 04:10 04/09/18 04:00 Abnormal lab results RBC 3.62 M/mcL (3.82-4.97) L 04/08/18 04:10 Hgb 9.6 g/dL (11.5-15.4) L D 04/08/18 04:10 Hct 29.6 % (35.3-44.9) L 04/08/18 04:10 MCV 81.8 fL (83.0-100.0) L 04/08/18 04:10 MCH 26.5 pg (28.0-33.3) L 04/08/18 04:10 RDW 17.8 % (11.5-14.5) H 04/08/18 04:10 MPV 8.8 fL (9.4-12.4) L 04/08/18 04:10 PT 12.9 Seconds (9.4-12.1) H 04/07/18 19:25 Chloride 114 mEq/L (98-107) H 04/09/18 04:00 Creatinine 0.25 mg/dL (0.60-1.20) L 04/09/18 04:00 POC Glucose 128 mg/dL (70-99) H 04/09/18 11:12 Calcium 7.7 mg/dL (8.6-10.3) L 04/09/18 04:00 Total Bilirubin 0.2 mg/dL (0.3-1.0) L 04/07/18 19:25 Alkaline Phosphatase 123 Units/L (34-104) H 04/07/18 19:25 Serum Total Protein 6.1 g/dL (6.4-8.9) L 04/07/18 19:25 Albumin 3.3 g/dL (3.5-5.7) L 04/07/18 19:25 Prealbumin 12.6 mg/dL (17.0-34.0) L 04/09/18 04:00 Lipase 5 Units/L (11-82) L 04/07/18 19:25 Ur Specific [place] < 1.005 (1.010-1.025) L 04/07/18 18:48 Diabetes panel 04/09/18 Range/Units 04:00 Sodium 144 (136-145) mEq/L Potassium 4.0 (3.5-5.1) mEq/L Chloride 114 H (98-107) mEq/L Carbon Dioxide 28 (23-29) mEq/L BUN 6 (6-20) mg/dL Creatinine 0.25 L (0.60-1.20) mg/dL Glucose 101 (70-105) mg/dL Calcium 7.7 L (8.6-10.3) mg/dL Triglycerides 70 (< 150) mg/dL Calcium panel 04/09/18 Range/Units 04:00 Calcium 7.7 L (8.6-10.3) mg/dL Phosphorus 4.0 (2.7-4.5) mg/dL Pituitary panel 04/09/18 Range/Units 04:00 Sodium 144 (136-145) mEq/L Potassium 4.0 (3.5-5.1) mEq/L Chloride 114 H (98-107) mEq/L Carbon Dioxide 28 (23-29) mEq/L BUN 6 (6-20) mg/dL Creatinine 0.25 L (0.60-1.20) mg/dL Glucose 101 (70-105) mg/dL Calcium 7.7 L (8.6-10.3) mg/dL Adrenal panel 04/09/18 Range/Units 04:00 Sodium 144 (136-145) mEq/L Potassium 4.0 (3.5-5.1) mEq/L Chloride 114 H (98-107) mEq/L Carbon Dioxide 28 (23-29) mEq/L BUN 6 (6-20) mg/dL Creatinine 0.25 L (0.60-1.20) mg/dL Glucose 101 (70-105) mg/dL Calcium 7.7 L (8.6-10.3) mg/dL All other labs normal. - Attending Attestation The patient is seen and evaluated on morning rounds. I personally reviewed the CAT scan. A locally dilated segment of small bowel as common after Flynn-en-Y gastric bypass. This has been evaluated previously. She does not appear to have high-grade bowel obstruction. Dietary trial is indicated. Tad Bradford MD FACS
[2018-04-08] MEDS: OXYCODONE Oral CONC 10 MG/0.5 ML ORAL.SYG SL PRN (15:56)
[2018-04-08] MEDS ORDERED: Clinimix E 5%-15% SOLUTION 2,000 ML with MVI, adult with vitamin K 10 ML, Trace Eleme... IVC SCH (17:00)
[2018-04-08] MEDS: Insulin LISPRO 300 UNITS/3 ML VIAL SQ SCH (18:46)
[2018-04-09] MEDS: Insulin LISPRO 300 UNITS/3 ML VIAL SQ SCH ×5 (00:24→11:41)
[2018-04-09] MEDS: Nicotine 14 MG PATCH.TD24 TD SCH (00:25)
[2018-04-09] MEDS: *HR* Heparin 5,000 UNIT/ML VIAL SQ SCH ×3 (00:52→14:04)
[2018-04-09] MEDS: Ampicillin/Sulbactam 3,000 MG in 0.9 % Sodium Chloride Mini Bag 100 ML IVPB SCH ×3 (01:53→11:48)
[2018-04-09 04:37] LABS: BUN/Creatinine Ratio 24 (6-26); Blood Urea Nitrogen 6 mg/dL (6-20); Calcium 7.7 mg/dL (8.6-10.3); Carbon Dioxide 28 mEq/L (23-29); Chloride 114 mEq/L (98-107); Glucose 101 mg/dL (70-105); Magnesium 1.6 mg/dL (1.6-2.6); Osmolality,Calculated 296 (280-300); Sodium 144 mEq/L (136-145); Triglycerides 70 mg/dL (< 150); eGFR For Non-African Americans > 60 (> 60)
[2018-04-09] MEDS: Budesonide/Formoterol 160/4.5 1 PUFF INH IH SCH (07:37)
[2018-04-09] MEDS ORDERED: Pantoprazole 40 MG VIAL IVP SCH (09:00)
[2018-04-09] MEDS ORDERED: 0.9 % Sodium Chloride 500 ML IVC ONE (09:57)
--- NOTE | 2018-04-09 10:01 | Infectious Disease Progress No ---
Date of Encounter: 04/09/18 Time of Encounter: 10:01 - Assessment and Plan (1) Lung abscess Status: Acute Location: Right lung base. Causative organism: Unclear. Improved on Augmentin per imaging. Previous sputum culture grew Klebsiella oxytoca that is intermediate to Augmentin and resistant to ampicillin. The patient also has a history of MRSA abdominal wound. She is allergic to Keflex with a rash and developed a rash while taking Augmentin. CT of the chest 04/07/18 showed 3 peripherally enhancing loculated fluid collection in the peripheral right lower lobe suggestive of possible intrapulmonary abscesses, decreased in size since comparison study. Superimposed opacities in the right lower lobe and lingula suspicious for pneumonia. Recommendations: Get sputum culture if patient is able to provide an adequate specimen. Get MRSA nasal screening. Send urine for strep pneumococcal and legionella urinary antigens. Discontinue Unasyn. Start Levaquin 750mg PO daily. Start doxycycline 100mg PO BID. Duration of treatment depends on the clinical picture, but likely a total of 4 weeks. Duration to be determined by the pulmonary team. Monitor renal function and for drug toxicity and dose-adjust antibiotics. Qualifiers: Pulmonary abscess pneumonia presence: with pneumonia Laterality: left Lung location: unspecified part of lung Qualified Code(s): J85.1 - Abscess of lung with pneumonia (2) Pneumonia Status: Acute Location: Right lower lobe and lingula. The patient has been unable to provide a sputum culture if she is not having a productive cough. I do not think the patient is aspirating. Further workup and antibiotic recommendations as above. Qualifiers: Pneumonia type: due to unspecified organism Laterality: right Lung location: lower lobe of lung Qualified Code(s): J18.1 - Lobar pneumonia, uns pecified organism (3) Small bowel obstruction Status: Suspected CT of the abdomen and pelvis showed a segment of dilated small bowel in the mid abdomen concerning for low-grade small bowel obstruction. Gen. surgery consulted. Await recommendations. (4) Skin rash Status: Acute Etiology: Unclear. Antibiotic-related versus contact dermatitis. Resolved. Supportive care per the primary team. 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 No acute events overnight. Patient states overall she feels well and wants to go home. Denies fevers, chills, or rigors. Denies chest pain, shortness breath, or cough. States her abdominal pain and nausea are baseline and she is tolerating a clear liquid diet without a problem. She denies any oral thrush or any skin lesions. She denies passing any flatness or having a bowel movement today. She states that previously documented rash has resolved. Infect Dis PN-Objective Data - Labs CBC & Chem 7: 04/08/18 04:10 04/09/18 04:00 Labs: Laboratory Results - last 24 hr 04/08/18 04/08/18 04/09/18 06:16 10:56 04:00 Sodium 144 Potassium 4.0 Chloride 114 H Carbon Dioxide 28 BUN 6 Creatinine 0.25 L Est GFR ( Amer) > 60 Est GFR (Non-Af Amer) > 60 BUN/Creatinine Ratio 24 Glucose 101 POC Glucose 90 110 H Calculated Osmolality 296 Calcium 7.7 L Phosphorus 4.0 Magnesium 1.6 Prealbumin Triglycerides 70 04/09/18 04/09/18 04:00 07:14 Sodium Potassium Chloride Carbon Dioxide BUN Creatinine Est GFR ( Amer) Est GFR (Non-Af Amer) BUN/Creatinine Ratio Glucose POC Glucose 108 H Calculated Osmolality Calcium Phosphorus Magnesium Prealbumin 12.6 L Triglycerides Cultures: Cultures 04/08/18 00:56 Blood Culture - Preliminary Peripheral Venipuncture Culture is incubating and being continuously monitored for growth. Final report to follow. 04/08/18 00:56 Blood Culture - Preliminary Peripheral Venipuncture Culture is incubating and being continuously monitored for growth. Final report to follow. 04/08/18 00:56 Blood Fungal Culture - Preliminary Peripheral Venipuncture Culture is incubating and being continuously monitored for growth. Final report to follow. Serology 04/07/18 04/07/18 Range/Units 19:30 18:48 Urine Color Yellow (Yellow) Urine Clarity Clear (Clear) Urine pH 6.5 (5.0-8.0) pH Units Ur Specific [place] < 1.005 L (1.010-1.025) Urine Protein Negative (Neg-Trace) mg/dL Urine Glucose (UA) Normal (Normal) mg/dL Urine Ketones Negative (Negative) mg/dL Urine Blood Negative (Negative) Urine Nitrite Negative (Negative) Urine Bilirubin Negative (Negative) Urine Urobilinogen Normal (Normal) mg/dL Ur Leukocyte Esterase Negative (Negative) Ur Culture Indicated? NO (NO) Stool Occult Bld Scrn Negative (Negative) - Impressions Impressions KUB X-Ray 04/08/18 10:40 IMPRESSION: No evidence for bowel obstruction or acute abnormality. D/ / Josiah Merino MD / Josiah Merino MD Interpreting Provider: Josiah Merino MD Exam - Constitutional Vitals: Temp Pulse Resp BP Pulse Ox 98.1 F 76 16 80/50 90 04/09/18 06:47 04/09/18 06:47 04/09/18 07:37 04/09/18 06:47 04/09/18 08:54 General appearance: average body habitus, cooperative, no acute distress - Head Head exam: Present: atraumatic, normal inspection, normocephalic - Eye Eye exam: Present: EOMI, normal appearance, PERRL Pupils: Present: normal accommodation - ENT ENT exam: Present: mucous membranes dry - Neck Neck exam: Present: normal inspection - Respiratory Respiratory exam: Present: CTAB. Absent: rales, respiratory distress, rhonchi, wheezes Additional comments: Tunneled line noted to the right upper chest with transparent dressing clean, dry, and intact. No surrounding erythema, warmth, tenderness, fluctuance, or drainage noted. - Cardiovascular Cardiovascular exam: Present: RRR, +S1, +S2 - GI/Abdominal GI/Abdominal exam: Present: normal bowel sounds, soft. Absent: distended, tenderness - Extremities Exam Extremities exam: Present: normal inspection. Absent: joint swelling, pedal edema, tenderness - Neurological Exam Neurological exam: Present: alert, oriented X3, no focal deficits - Skin Skin exam: Present: dry, intact, normal color, warm Consult Discharge Plan - Plan Instructions: Chronic Obstructive Pulmonary Disease (DC), Acute Abdominal Pain (DC) Referrals: Fam Rubin DO [Primary Care Provider] - 04/17/18 10:00 am Prescriptions: RX: Doxycycline 100 mg PO BID 30 Days #60 capsule Levofloxacin [Levaquin] 750 mg PO DAILY 30 Days #30 tablet - Attending Attestation I examined this patient and my medical decision-making was reviewed with the Resident Physician. I agree with the documented findings, disposition and treatment plan as described except to the extent set forth below. Infectious Disease CN: Results - Labs CBC & Chem 7: 04/08/18 04:10 04/09/18 04:00 Cultures: Cultures 04/08/18 00:56 Blood Culture - Preliminary Peripheral Venipuncture Culture is incubating and being continuously monitored for growth. Final report to follow. 04/08/18 00:56 Blood Culture - Preliminary Peripheral Venipuncture Culture is incubating and being continuously monitored for growth. Final report to follow. 04/08/18 00:56 Blood Fungal Culture - Preliminary Peripheral Venipuncture Culture is incubating and being continuously monitored for growth. Final report to follow. Serology: Serology 04/07/18 04/07/18 Range/Units 19:30 18:48 Urine Color Yellow (Yellow) Urine Clarity Clear (Clear) Urine pH 6.5 (5.0-8.0) pH Units Ur Specific [place] < 1.005 L (1.010-1.025) Urine Protein Negative (Neg-Trace) mg/dL Urine Glucose (UA) Normal (Normal) mg/dL Urine Ketones Negative (Negative) mg/dL Urine Blood Negative (Negative) Urine Nitrite Negative (Negative) Urine Bilirubin Negative (Negative) Urine Urobilinogen Normal (Normal) mg/dL Ur Leukocyte Esterase Negative (Negative) Ur Culture Indicated? NO (NO) Stool Occult Bld Scrn Negative (Negative)
--- NOTE | 2018-04-09 10:41 | Pulmonology Progress Note ---
<Jhon Moeller W - Last Filed: 04/09/18 11:02> Date of Encounter: 04/09/18 Objective PUL Vital signs: Last Vital Signs Temp 98.1 F 04/09/18 06:47 Pulse 76 04/09/18 06:47 Resp 16 04/09/18 07:37 BP 80/50 04/09/18 06:47 Pulse Ox 90 04/09/18 08:54 Results - Laboratory Findings CBC and BMP: 04/08/18 04:10 04/09/18 04:00 PT/INR, D-dimer PT 12.9 Seconds (9.4-12.1) H 04/07/18 19:25 Abnormal lab findings: Abnormal lab results RBC 3.62 M/mcL (3.82-4.97) L 04/08/18 04:10 Hgb 9.6 g/dL (11.5-15.4) L D 04/08/18 04:10 Hct 29.6 % (35.3-44.9) L 04/08/18 04:10 MCV 81.8 fL (83.0-100.0) L 04/08/18 04:10 MCH 26.5 pg (28.0-33.3) L 04/08/18 04:10 RDW 17.8 % (11.5-14.5) H 04/08/18 04:10 MPV 8.8 fL (9.4-12.4) L 04/08/18 04:10 PT 12.9 Seconds (9.4-12.1) H 04/07/18 19:25 Chloride 114 mEq/L (98-107) H 04/09/18 04:00 Creatinine 0.25 mg/dL (0.60-1.20) L 04/09/18 04:00 POC Glucose 108 mg/dL (70-99) H 04/09/18 07:14 Calcium 7.7 mg/dL (8.6-10.3) L 04/09/18 04:00 Total Bilirubin 0.2 mg/dL (0.3-1.0) L 04/07/18 19:25 Alkaline Phosphatase 123 Units/L (34-104) H 04/07/18 19:25 Serum Total Protein 6.1 g/dL (6.4-8.9) L 04/07/18 19:25 Albumin 3.3 g/dL (3.5-5.7) L 04/07/18 19:25 Prealbumin 12.6 mg/dL (17.0-34.0) L 04/09/18 04:00 Lipase 5 Units/L (11-82) L 04/07/18 19:25 Ur Specific [place] < 1.005 (1.010-1.025) L 04/07/18 18:48 - Microbiology Findings Microbiology Findings: Microbiology, Last 48 Hours 04/08/18 00:56 Blood Culture - Preliminary Peripheral Venipuncture Culture is incubating and being continuously monitored for growth. Final report to follow. 04/08/18 00:56 Blood Culture - Preliminary Peripheral Venipuncture Culture is incubating and being continuously monitored for growth. Final report to follow. 04/08/18 00:56 Blood Fungal Culture - Preliminary Peripheral Venipuncture Culture is incubating and being continuously monitored for growth. Final report to follow. - Clinical Findings Intake & Output: Intake & Output 04/08/18 04/09/18 04/09/18 23:59 07:59 15:59 Intake Total 3200 / 3200 1170 / 1170 500 / 500 Output Total 1100 / 1100 700 / 700 Balance 2100 / 2100 470 / 470 500 / 500 Weight 55.3 kg Consult Discharge Plan - Plan Referrals: Fam Rubin DO [Primary Care Provider] - 04/17/18 10:00 am Prescriptions: Doxycycline 100 mg PO BID 30 Days #60 capsule Levofloxacin [Levaquin] 750 mg PO DAILY 30 Days #30 tablet - Attending Attestation I examined this patient and my medical decision-making was reviewed with the Resident Physician. I agree with the documented findings, disposition and treatment plan as described except to the extent set forth below. We independe ntly had afvk-[id number] contact with the patient Patient seen and examined at bedside Labs, radiology, chart personally reviewed. Impression/Recs Persistent although improving lung abscess agree with the continuation of antibiotics per ID recommendations she will need to complete another 2 weeks of treatment at least. I will see her back in the clinic in 2 weeks and see how she is doing clinically and likely repeat her CT scan in 4 weeks I advised her to have HEME/Onc follow-up for evaluation of her chronic thrombophilia Pulmonary will sign off thank you for this consultation please call with questions <Diane Bright - Last Filed: 04/09/18 14:49> Date of Encounter: 04/09/18 Time of Encounter: 09:05 Assessment and Plan (1) Lung abscess Current Visit: No Status: Acute Imaging studies demonstrate improvement in lung abscess. Patient denies any worsening respiratory complaints. Plan: - Antimicrobial therapy with doxycycline + levofloxacin per ID recommendations. Anticipate 2 weeks of therapy with these medications - D/c augmentin/unasyn - Sputum and blood cultures pending - Recommend outpatient followup with the pulmonology clinic approximately one week after hospital discharge - Repeat chest CT in approximately 4 weeks with outpatient followup to ensure resolution of abscess Qualifiers: Pulmonary abscess pneumonia presence: with pneumonia Laterality: left Lung location: unspecified part of lung Qualified Code(s): J85.1 - Abscess of lung with pneumonia (2) COPD (chronic obstructive pulmonary disease) Current Visit: Yes Status: Chronic - Continue symbicort 160/4.5 2 puffs BID Qualifiers: COPD type: unspecified COPD Qualified Code(s): J44.9 - Chronic obstructive pulmonary disease, unspecified (3) Tobacco abuse Current Visit: No Status: Chronic - Counselled patient on the importance of smoking cessation - Continue nicotine patch 14mg daily (4) History of pulmonary embolism Current Visit: No Status: Acute - Maintain outpatient followup with hematology/oncology clinic as recommended (5) Small bowel obstruction Current Visit: Yes Status: Suspected -Continued management per primary team Subjective Interval history: Ms. Abdi was seen and evaluated at the bedside this morning. She states that she is feeling somewhat improved as compared to yesterday, and reports that she was able to have a bowel movement last night which consisted of solid, formed stool, and resulted in improvement of her abdominal discomfort. She reports improvement in respiratory symptoms with use of symbicort as well. She denies any new complaints or concerns today, and states that she feels like she is ready to go home, as "there is nothing being done here that cannot be done at home". She denies any recurrence of fevers or chills, and denies any new respiratory symptoms. Objective PUL Vital signs: Last Vital Signs Temp 98.1 F 04/09/18 06:47 Pulse 76 04/09/18 06:47 Resp 16 04/09/18 07:37 BP 80/50 04/09/18 06:47 Pulse Ox 90 04/09/18 08:54 General appearance: no acute distress Eyes: nonicteric ENT: oropharynx moist Mallampati (class): 2 Effort: normal Auscultation: right: wheezes (Scant intermittent wheezes present), bilateral: diminished breath sounds Cardiovascular: regular rate and rhythm Gastrointestinal: soft, non-tender, non-distended Integumentary: normal Extremities: no cyanosis, no edema, no clubbing normal mental status mood appropriate, affect normal Results - Laboratory Findings CBC and BMP: 04/08/18 04:10 04/09/18 04:00 PT/INR, D-dimer PT 12.9 Seconds (9.4-12.1) H 04/07/18 19:25 Abnormal lab findings: Abnormal lab results RBC 3.62 M/mcL (3.82-4.97) L 04/08/18 04:10 Hgb 9.6 g/dL (11.5-15.4) L D 04/08/18 04:10 Hct 29.6 % (35.3-44.9) L 04/08/18 04:10 MCV 81.8 fL (83.0-100.0) L 04/08/18 04:10 MCH 26.5 pg (28.0-33.3) L 04/08/18 04:10 RDW 17.8 % (11.5-14.5) H 04/08/18 04:10 MPV 8.8 fL (9.4-12.4) L 04/08/18 04:10 PT 12.9 Seconds (9.4-12.1) H 04/07/18 19:25 Chloride 114 mEq/L (98-107) H 04/09/18 04:00 Creatinine 0.25 mg/dL (0.60-1.20) L 04/09/18 04:00 POC Glucose 108 mg/dL (70-99) H 04/09/18 07:14 Calcium 7.7 mg/dL (8.6-10.3) L 04/09/18 04:00 Total Bilirubin 0.2 mg/dL (0.3-1.0) L 04/07/18 19:25 Alkaline Phosphatase 123 Units/L (34-104) H 04/07/18 19:25 Serum Total Protein 6.1 g/dL (6.4-8.9) L 04/07/18 19:25 Albumin 3.3 g/dL (3.5-5.7) L 04/07/18 19:25 Prealbumin 12.6 mg/dL (17.0-34.0) L 04/09/18 04:00 Lipase 5 Units/L (11-82) L 04/07/18 19:25 Ur Specific [place] < 1.005 (1.010-1.025) L 04/07/18 18:48 - Microbiology Findings Microbiology Findings: Microbiology, Last 48 Hours 04/08/18 00:56 Blood Culture - Preliminary Peripheral Venipuncture Culture is incubating and being continuously monitored for growth. Final report to follow. 04/08/18 00:56 Blood Culture - Preliminary Peripheral Venipuncture Culture is incubating and being continuously monitored for growth. Final report to follow. 04/08/18 00:56 Blood Fungal Culture - Preliminary Peripheral Venipuncture Culture is incubating and being continuously monitored for growth. Final report to follow. - Clinical Findings Intake & Output: Intake & Output 04/08/18 04/09/18 04/09/18 23:59 07:59 15:59 Intake Total 3200 / 3200 1170 / 1170 Output Total 1100 / 1100 700 / 700 Balance 2100 / 2100 470 / 470 Weight 55.3 kg
[2018-04-09] MEDS ORDERED: Nicotine 14 MG PATCH.TD24 TD SCH (11:24)
[2018-04-09 11:26] VITALS: BP 115/77
--- NOTE | 2018-04-09 11:45 | Event Note ---
Date of Encounter: 04/09/18 Time of Encounter: 11:45 Patient tolerating diet initiated by primary team. Surgery will sign off at this time. Thank you for allowing us to participate in Kenia's care. No surgical follow-up indicated.
[2018-04-09] MEDS: OXYCODONE Oral CONC 10 MG/0.5 ML ORAL.SYG SL PRN (12:02)
--- NOTE | 2018-04-09 13:31 | Discharge Summary ---
- NOTES TO OUTPATIENT PROVIDER Notes to Outpatient Provider: none Orders not resulted at time of discharge: Pending orders 04/07/18 23:20 Culture,Blood [BC] Routine 04/07/18 23:21 Fungal Culture,Blood [MYC] Routine 04/08/18 04:10 Zinc AM 0400 04/09/18 Culture,Sputum with Gram Stain [RM] Routine Date of Encounter: 04/09/18 Time of Encounter: 11:00 - Discharge Diagnosis (1) Protein-calorie malnutrition, moderate Priority: Secondary Status: Chronic (2) Empyema lung Priority: Secondary Status: Acute (3) Small bowel obstruction Priority: Primary Status: Suspected (4) PUD (peptic ulcer disease) Priority: Secondary Status: Acute (5) COPD (chronic obstructive pulmonary disease) Priority: Secondary Status: Chronic Qualifiers: COPD type: unspecified COPD Qualified Code(s): J44.9 - Chronic obstructive pulmonary disease, unspecified (6) Hypotension Priority: Secondary Status: Acute Qualifiers: Hypotension type: unspecified hypotension type Qualified Code(s): I95.9 - Hypotension, unspecified (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 Patients hospital stay general surgery was consulted and followed patient but no surgical intervention required due to resolution of small bowel dissection. Pulmonology in addition to infectious disease was consulted for lung abscess with recommendations that patient be treated as an outpatient with a 30 day course of doxycycline and 30 day course of Levaquin. Patient will follow-up with pulmonology as an outpatient. - Time Spent with Patient Total time spent providing and/or coordinating discharge services: Less than 30 minutes - Discharge Medications Prescriptions: Doxycycline 100 mg PO BID 30 Days #60 capsule Levofloxacin [Levaquin] 750 mg PO DAILY 30 Days #30 tablet Home Medications: Cyanocobalamin (B-12) [Vitamin B12] 1,000 mcg IM QMONTH 12/18/17 [History] Ergocalciferol (VITAMIN D2) [Vitamin D2] 50,000 unit PO 2XW 12/18/17 [History] Furosemide [Lasix] 20 mg PO DAILY 12/18/17 [History] Lipase/Protease/Amylase [Virgilio Ramos 36,000 Units Capsule] 36,000 units PO TIDAC 0 12/18/17 [History] OLANZapine [Zyprexa] 20 mg PO HS 12/18/17 [History] Sucralfate [Carafate] 1 gm PO QID 12/18/17 [History] Vilazodone HCl [Viibryd] 40 mg PO DAILY 12/18/17 [History] Buprenorphine HCl 8 mg SL BID 03/22/18 [History] Clinimix E 5%-15% SOLUTION [Clinimix E 5%-15% Solution] 1,540 ml IV HS 03/22/18 [History] Dextroamphetamine/Amphetamine [Adderall 20 mg Tablet] 20 mg PO BID 03/22/18 [Hi story] Esomeprazole Sodium [Nexium I.v] 40 mg IV BID 03/22/18 [History] Spironolactone [Aldactone] 50 - 100 mg PO DAILY 03/22/18 [History] raNITIdine HCl [Zantac] 300 mg PO BID 03/22/18 [History] Doxycycline 100 mg PO BID 30 Days #60 capsule 04/09/18 [Rx] Levofloxacin [Levaquin] 750 mg PO DAILY 30 Days #30 tablet 04/09/18 [Rx] Allergies/Adverse Reactions: Allergy/AdvReac Type Severity Reaction Status Date / Time cephalexin Allergy Rash Verified 03/29/18 09:16 clindamycin Allergy Rash Verified 03/29/18 09:16 nalbuphine [From Nubain] AdvReac "didn't Verified 03/29/18 09:[address] it made me feel" Date of admission: 04/08/18 10:23 Primary care physician: Fam Rubin DO Consults: 04/07/18 22:00 Consult to Gastroenterology [CONS] Stat Consulting Provider: Gastroenterology [facility] Reason for Consult: SBO, h/o malabsorption Call Completed: No Consult to Pulmonology [CONS] Stat Consulting Provider: [facility]m [facility] Reason for Consult: empyema Call Completed: No 04/07/18 23:17 Consult to Nutrition [CONS] Routine Comment: Consulting Provider: NUTRITION Reason for Dietary Consult: TPN Start and Manage 04/07/18 23:37 Consult to International Manager [CONS] Routine Reason for SW Consult: For discharge setup, patient has [facility] 04/08/18 10:36 Consult to Infectious Diseases [CONS] Routine Consulting Provider: Infectious Disease [facility] Reason for Consult: Antimicrobial management Call Completed: Yes 04/08/18 12:41 Consult to Surgery [CONS] Routine Consulting Provider: Cody Palm Reason for Consult: small bowel obstruction Call Completed: Yes - Constitutional Vitals: Temp Pulse Resp BP Pulse Ox 98.2 F 83 18 115/77 98 04/09/18 11:24 04/09/18 11:24 04/09/18 11:24 04/09/18 11:24 04/09/18 11:24 Exam: Gen.: Nonacute distress, alert and oriented 3 Skin: Normal color - Patient Status Disposition: Home Health Service Condition: Good - Discharge Instructions Instructions: Chronic Obstructive Pulmonary Disease (DC), Acute Abdominal Pain (DC) Follow Up With: Fam Rubin DO [Primary Care Provider] - 04/17/18 10:00 am
--- NOTE | 2018-04-09 14:07 | Physician Discharge Referral ---
Home Health/Hosp Referral Info Transfer to: Home Health - Diagnosis (1) Protein-calorie malnutrition, moderate Status: Chronic (2) Empyema lung Status: Acute (3) Small bowel obstruction Status: Suspected (4) PUD (peptic ulcer disease) Status: Acute (5) COPD (chronic obstructive pulmonary disease) Status: Chronic (6) Hypotension Status: Acute (7) WPW (Nbhhm-Sjvogqvyg-Pqxho syndrome) Status: Chronic - Respiratory Orders Smoking Cessation: Smoking cessation has been advised. For more information, call the [place] Tobacco Quit Line at 9-322-YSTM-NOW. - Services Needed Following services are medically necessary services: Nursing - Transfer Medications Prescriptions: Doxycycline 100 mg PO BID 30 Days #60 capsule Levofloxacin [Levaquin] 750 mg PO DAILY 30 Days #30 tablet Home Medications: Cyanocobalamin (B-12) [Vitamin B12] 1,000 mcg IM QMONTH 12/18/17 [History] Ergocalciferol (VITAMIN D2) [Vitamin D2] 50,000 unit PO 2XW 12/18/17 [History] Furosemide [Lasix] 20 mg PO DAILY 12/18/17 [History] Lipase/Protease/Amylase [Creon Dr 36,000 Units Capsule] 36,000 units PO TIDAC 12/18/17 [History] OLANZapine [Zyprexa] 20 mg PO HS 12/18/17 [History] Sucralfate [Carafate] 1 gm PO QID 12/18/17 [History] Vilazodone HCl [Viibryd] 40 mg PO DAILY 12/18/17 [History] Buprenorphine HCl 8 mg SL BID 03/22/18 [History] Clinimix E 5%-15% SOLUTION [Clinimix E 5%-15% Solution] 1,540 ml IV HS 03/22/18 [History] Dextroamphetamine/Amphetamine [Adderall 20 mg Tablet] 20 mg PO BID 03/22/18 [History] Esomeprazole Sodium [Nexium I.v] 40 mg IV BID 03/22/18 [History] Spironolactone [Aldactone] 50 - 100 mg PO DAILY 03/22/18 [History] raNITIdine HCl [Zantac] 300 mg PO BID 03/22/18 [History] Doxycycline 100 mg PO BID 30 Days #60 capsule 04/09/18 [Rx] Levofloxacin [Levaquin] 750 mg PO DAILY 30 Days #30 tablet 04/09/18 [Rx] Allergies/Adverse Reactions: Allergy/AdvReac Type Severity Reaction Status Date / Time cephalexin Allergy Rash Verified 03/29/18 09:16 clindamycin Allergy Rash Verified 03/29/18 09:16 nalbuphine [From Nubain] AdvReac "didn't Verified 03/29/18 09:16 like the way it made me feel" Certification: Further, I certify that my clinical findings support that this patient is homebound (i.e. absences from home require considerable and taxing effort and are for medical reasons or catholic services or infrequently or short duration when for other reasons) because: Homebound Reason: Patient requires assistance of a person or device to safely leave home Attestation: My signature below is to certify that this patient is under my care and that I, or nurse practitioner, or a physician's specimen preparation assistant working with me, has a [id number] encounter with this patient.
== END 2018-04-09 16:41 | disposition home health service (06) | DRG 388 ==
LOC: 3ANU 18:18 → EMEROOARM 18:18 → 3ANU 23:05 → SUATTDRO 04-08 10:23
PROVIDERS: ADMIT Family Medicine; ATTEND Hospitalist

== ENCOUNTER 2018-09-16 02:22 | Inpatient (IN) ==
--- NOTE | 2018-09-16 04:08 | Emergency Department Note ---
Disposition Clinical Impression: PICC line infection Qualifiers: Encounter type: initial encounter Qualified Code(s): T80.219A - Unspecified infection due to central venous catheter, initial encounter Disposition: Admitted As Inpatient Condition: Fair Time of Disposition: 03:00 General Adult HPI - General Chief complaint: ED General Medical Stated complaint: "Redness at PICC in [facility]" Time Seen by Provider: 09/16/18 03:45 Source: patient Mode of arrival: ambulatory Limitations: no limitations Nursing Notes Reviewed: Yes Vital Signs Reviewed: Yes - History of Present Illness HPI Narrative: Redness around her PICC site in her right anterior chest wall since yesterday. Mild drainage of yellow fluid. No fever nausea vomiting diarrhea or any constitutional symptoms. PICC line is been in place for 5 or 6 months and is used 12 hours a day for TPN as the patient has chronic diarrhea and short gut syndrome. Vital signs stable otherwise. We will need to be replaced cultures will be ordered and antibiotics will be ordered. She will have to be admitted due to her dependence on daily TPN. Onset (ago): hour(s) Location: chest Radiation: non-radiation Pain Severity: mild Pain Scale: 0 Quality: aching Consistency: constant Improves with: nothing Worsens with: nothing Associated symptoms: Denies: denies other symptoms, confusion, chest pain, cough, fever/chills, headaches - Related Data Home Medications Medication Instructions Recorded Confirmed Cyanocobalamin (B-12) [Vitamin B12] 1,000 mcg IM QMONTH 12/18/17 09/16/18 Ergocalciferol (VITAMIN D2) 50,000 unit PO 2XW 12/18/17 09/16/18 [Vitamin D2] Furosemide [Lasix] 20 mg PO DAILY 12/18/17 09/16/18 Lipase/Protease/Amylase [Creon Dr 36,000 units PO TIDAC 12/18/17 09/16/18 36,000 Units Capsule] OLANZapine [Zyprexa] 20 mg PO HS 12/18/17 09/16/18 Sucralfate [Carafate] 1 gm PO QID 12/18/17 09/16/18 Vilazodone HCl [Viibryd] 40 mg PO DAILY 12/18/17 09/16/18 Buprenorphine HCl 8 mg SL BID 03/22/18 09/16/18 Clinimix E 5%-15% SOLUTION 1,540 ml IV HS 03/22/18 09/16/18 [Clinimix E 5%-15% Solution] Dextroamphetamine/Amphetamine 20 mg PO BID 03/22/18 09/16/18 [Adderall 20 mg Tablet] Esomeprazole Sodium [Nexium I.v.] 40 mg IV BID 03/22/18 09/16/18 Spironolactone [Aldactone] 50 - 100 mg PO DAILY 03/22/18 09/16/18 raNITIdine HCl [Zantac] 300 mg PO BID 03/22/18 09/16/18 Allergies Allergy/AdvReac Type Severity Reaction Status Date / Time cephalexin Allergy Rash Verified 09/16/18 03:54 clindamycin Allergy Rash Verified 09/16/18 03:54 nalbuphine [From Nubain] AdvReac "didn't Verified 09/16/18 03:54 like the way it made me feel" Constitutional: Denies: fever, chills, weakness, weight change Eyes: Denies: eye pain, eye discharge, vision change ENT ED: Denies: ear pain, throat pain, dental pain, hearing loss, epistaxis, congestion, dysphagia Cardiovascular: Denies: chest pain, palpitations, dyspnea on exertion, edema, syncope Respiratory: Denies: cough, dyspnea, wheezes, hemoptysis, stridor Gastrointestinal: Denies: abdominal pain, nausea, vomiting, diarrhea, constipation, hematemesis, melena, hematochezia Genitourinary: Denies: dysuria, frequency, hematuria, discharge Musculoskeletal: Denies: back pain, neck pain, arthralgia, myalgia Integumentary: Reports: as per HPI, rash Neurological: Denies: headache, weakness, numbness, paresthesias, confusion, abnormal gait, vertigo Psychiatric: Denies: anxiety, depression, suicidal thoughts, homicidal thoughts, auditory hallucinations, visual hallucinations Endocrine: Denies: fatigue Hematological/Lymphatic: Denies: easy bleeding, easy bruising Allergic/Immunologic: Denies: facial swelling, urticaria Past Medical History - Past Medical History Medical history: Reports: arthritis, cirrhosis, osteoporosis, other Surgical history: Reports: appendectomy, cholecystectomy, herniorrhaphy, hysterectomy, other, bariatric surgery Psychiatric history: Reports: anxiety, ADHD, bipolar, depression, prior suicide attempt 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 Mild yellow discharge noted. No induration and fluctuance or regional erythema or edema noted.) - Respiratory Respiratory exam: Present: normal lung sounds bilaterally. Absent: respiratory distress Course Vital Signs Temperature 98.3 F 09/16/18 02:28 Pulse Rate 90 09/16/18 02:28 Respiratory Rate 16 09/16/18 02:28 Blood Pressure 131/93 09/16/18 02:28 O2 Sat by Pulse Oximetry 99 09/16/18 02:28 Temperature 98.0 F 09/16/18 06:06 Pulse Rate 78 09/16/18 06:06 Respiratory Rate 18 09/16/18 06:06 Blood Pressure 101/63 09/16/18 06:06 O2 Sat by Pulse Oximetry 96 09/16/18 06:06 Oxygen Delivery Oxygen Delivery Room Air
[2018-09-16] MEDS ORDERED: Isovue-370 500 ML BOTTLE IVP ONE (04:14)
[2018-09-16] MEDS ORDERED: Acetaminophen 325 MG TABLET PO PRN (05:34)
[2018-09-16] MEDS ORDERED: *HR* OxyCODONE Immed Rel 5 MG TABLET PO PRN (05:34)
[2018-09-16] MEDS ORDERED: traMADol 50 MG TABLET PO PRN (05:34)
[2018-09-16] MEDS ORDERED: Naloxone 0.4 MG/ML INJ IVP PRN (05:34)
[2018-09-16] MEDS ORDERED: Ondansetron 4 MG/2 ML VIAL IVP PRN (05:34)
[2018-09-16] MEDS ORDERED: Ringers Solution, Lactated 1,000 ML IVC SCH (05:45)
--- NOTE | 2018-09-16 05:52 | Internal Med History&Physical ---
Date of Encounter: 09/16/18 Time of Encounter: 05:50 Internal Medicine - H&P: HPI Chief complaint: skin changes Admitted From: Home Plans for Post Hospital Care: Home History of present illness: Gayle Abdi is a 42 year old woman with plethora of comorbidities including hypertension, gastric ulcer, pancreatitis, liver cirrhosis, gastric bypass complicated by short gut syndrome from bowel resections and chronic diarrhea with malabsorption for which she has a PICC line to undergo TPN, bipolar disorder and borderline personality disorder. She presented emergency room complaining of redness around her PICC site and yesterday as well as mild drainage of yellow fluid. She denied associated fever, nausea, vomiting or chills. No constitutional signs and symptoms reported. At the time of my assessment there were no labs ordered for further evaluation. She says the inflammatory signs presented themselves over a period of hours and she was surprised to see it develop so fast. She says she has had over 5 PICC lines and have never been infected previously. Of note, in the past number of months she was treated for a RLL lung abscess with a long course of oral abx. Vitals: Reviewed General: Emaciated, talkative and anxious appearing. Skin: Dry, decreased turgor, pale HEENT: Dry mucous membranes. (+) conjunctivae pallor. Neck: No lymphadenopathy. No JVD. No carotid bruits. No palpable thyroid. Chest: Normal thoracic expansion. Normal breath sounds. Clear to auscultation. Right upper chest wall catheter insertion site with notable erythema and mild swelling with yellowish drainage noted emanating. Heart: Normal S1 & S2; rhythmic. No rubs or murmurs. Abdomen: Non-distended, soft and non-tender to palpation. No peritoneal reaction. Extremities: No clubbing, cyanosis or edema. No calf tenderness. Normal distal pulses. Neurological: Awake, alert and oriented to person, place and time. No focal deficits. Psych: Affect appropriate. Assessment/Plan 1. Central venous catheter site infection: Although it appears somewhat superficial, it is always unclear to what depth the infection has spread. It does not appear to have affected the track based on physical exam however it is hard to delineate. The concern with such infections is the presence of concomitant bacteremia which would then classify it as a CRBSI. Will order blood cultures to be collected peripherally and also from the catheter itself. Follow culture data. Advise removal of the catheter and culturing the tip as well. She will need an alternative form of access in the interim. Likely a Staphylococcal infection and therefore vancomycin should be sufficient for now pending further results. 2. Malabsorption syndrome: Will continue pancreatic enzyme replacement therapy, consult nutrition for TPN assistance. 3. Mood disorder: On olanzapine and vilazodone. 4. Dyspepsia: On esomeprazole and ranitidine. 5. Narcotic dependence: Continue buprenorphine. Past Med Surg Social Fam HX - Past Medical History Medical history: arthritis, cirrhosis, osteoporosis, other Additional medical history: alcoholic cirrhosis Psychiatric history: anxiety, ADHD, bipolar, depression, prior suicide attempt - Past Surgical History Surgical History: appendectomy, cholecystectomy, herniorrhaphy, hysterectomy, other, bariatric surgery Additional surgical history: gastric bypass - Social History Smoking Status: Current every day smoker Smokeless Tobacco Status: No Alcohol use: none Drug use: none - Family History Father Adopted: No Living Status: Still Living Hx Family Cardiac Disorders: No Hx Family Respiratory Disorders: No Hx Family Cancer: No Hx Family GI Disorders: No Hx Family Endocrine Disorder: No Hx Family Neuromuscular Disorders: No Hx Family Neurologic Disorders: No Hx Family HEENT Disorders: No Hx Family Autoimmune Disorders: No Grandfather Living Status: Hx Family Cardiac Disorders: Yes (NH) Maternal Grandmother Living Status: Still Living Hx Family Cancer: Yes (Lung) Sister Living Status: Still Living Hx Family Cancer: Yes (Ovarian) Mother Adopted: No Living Status: Still Living Hx Family Cardiac Disorders: Yes Hx Family Respiratory Disorders: No Hx Family Cancer: No Hx Family GI Disorders: No Hx Family Endocrine Disorder: No Hx Family Neuromuscular Disorders: No Hx Family Neurologic Disorders: No Hx Family HEENT Disorders: No Hx Family Autoimmune Disorders: No Internal Medicine - H&P: Meds Cyanocobalamin (B-12) [Vitamin B12] 1,000 mcg IM QMONTH 12/18/17 [History] Ergocalciferol (VITAMIN D2) [Vitamin D2] 50,000 unit PO 2XW 12/18/17 [History] Furosemide [Lasix] 20 mg PO DAILY 12/18/17 [History] Lipase/Protease/Amylase [Creon Dr 36,000 Units Capsule] 36,000 units PO TIDAC 12/18/17 [History] OLANZapine [Zyprexa] 20 mg PO HS 12/18/17 [History] Sucralfate [Carafate] 1 gm PO QID 12/18/17 [History] Vilazodone HCl [Viibryd] 40 mg PO DAILY 12/18/17 [History] Buprenorphine HCl 8 mg SL BID 03/22/18 [History] Clinimix E 5%-15% SOLUTION [Clinimix E 5%-15% Solution] 1,540 ml IV HS 03/22/18 [History] Dextroamphetamine/Amphetamine [Adderall 20 mg Tablet] 20 mg PO BID 03/22/18 [History] Esomeprazole Sodium [Nexium I.v.] 40 mg IV BID 03/22/18 [History] Spironolactone [Aldactone] 50 - 100 mg PO DAILY 03/22/18 [History] raNITIdine HCl [Zantac] 300 mg PO BID 03/22/18 [History] Allergy/AdvReac Type Severity Reaction Status Date / Time cephalexin Allergy Rash Verified 09/16/18 03:54 clindamycin Allergy Rash Verified 09/16/18 03:54 nalbuphine [From Nubain] AdvReac "didn't Verified 09/16/18 03:[address] way it made me feel" All Systems PM: A 10-system review of systems was performed and is negative for pertinent findings except as documented above in the HPI. - Constitutional Vitals: Temp Pulse Resp BP Pulse Ox 98.3 F 75 18 137/92 100 09/16/18 02:28 09/16/18 04:47 09/16/18 04:50 09/16/18 04:50 09/16/18 04:47 Exam: . - Time Spent With Patient Total time spent is greater than 50% in coordination of care (as documented) at patient's floor/unit and/or counseling patient: Greater than 35 minutes
[2018-09-16 06:49] LABS: BUN/Creatinine Ratio 26 (6-26); Blood Urea Nitrogen 14 mg/dL (6-20); Calcium 9.6 mg/dL (8.6-10.3); Carbon Dioxide 27 mEq/L (23-29); Chloride 100 mEq/L (98-107); Glucose 96 mg/dL (70-105); INR 1.2; Osmolality,Calculated 284 (280-300); Potassium 3.3 mEq/L (3.5-5.1); Prothrombin Time 13.2 Seconds (9.4-12.1); Sodium 137 mEq/L (136-145); eGFR For Non-African Americans > 60 (> 60)
[2018-09-16 06:52] LABS: Activated Partial Thrombo Time 30.9 Seconds (26.0-36.0)
[2018-09-16 07:21] LABS: Basophils # 0.1 K/mcL (0.0-0.2); Basophils % 0.7 %; Eosinophils # 0.9 K/mcL (0.0-0.6); Eosinophils % 10.5 %; Hemoglobin 13.2 g/dL (11.5-15.4); Immature Granulocytes % 0.5 % (0-4); Immature Platelets 1.7 % (1.1-6.1); Lymphocytes # 4.4 K/mcL (0.6-4.6); Lymphocytes % 51.2 %; Mean Corpuscular Hemoglobin 28.2 pg (28.0-33.3); Mean Corpuscular Volume 85.5 fL (83.0-100.0); Mean Platelet Volume 9.9 fL (9.4-12.4); Monocytes # 0.6 K/mcL (0.0-1.3); Monocytes % 6.8 %; Neutrophils # 2.6 K/mcL (1.6-8.9); Platelet Count 427 K/mcL (140-400); Red Blood Count 4.68 M/mcL (3.82-4.97); Red Cell Distribution Width 17.5 % (11.5-14.5); Segmented Neutrophils % 30.3 %
[2018-09-16] MEDS: *HR* Heparin 5,000 UNIT/ML VIAL SQ SCH ×2 (08:33→16:54)
[2018-09-16] MEDS: ADDERALL 20 MG PO SCH ×2 (08:33→22:31)
[2018-09-16] MEDS: (Vilazodone Hcl [Viibryd] 40 MG) PO SCH (08:33)
[2018-09-16] MEDS: Famotidine 20 MG TABLET PO SCH ×2 (08:33→21:41)
[2018-09-16] MEDS: *HR* Buprenorphine HCl 8 MG TAB.SUBL SL SCH ×2 (08:33→21:57)
[2018-09-16] MEDS: Pantoprazole 40 MG VIAL IVP SCH ×2 (08:33→21:41)
--- NOTE | 2018-09-16 11:09 | Internal Med Progress Note ---
Hospitalist Progress Note - Encounter Date of Encounter: 09/16/18 Time of Encounter: 11:09 - Subjective Interval History: Ms. 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 She presented emergency room complaining of redness around her PICC site and as well as mild drainage of yellow fluid. She denied associated fever, nausea, vomiting or chills. She says she has had over 5 PICC lines and have never been infected previously. She was admitted in the hospital and did blood cx. Started her on empirical abx MRSA. - Exam Vitals: Temp Pulse Resp BP Pulse Ox 98.0 F 78 18 101/63 96 09/16/18 06:06 09/16/18 06:06 09/16/18 06:06 09/16/18 06:06 09/16/18 06:06 Exam: Gen: Alert, awake, Oriented to time,place and person..Looks very weak and lethargic Chest: Diminished breath sounds B/L, No wheezing, No crackles, No rales Mild erythema noticed over Rt side of chest wall region where she had PICC line Heart: S1S2+ RRR No murmurs Abd: Soft, NT, BS +, No organomegaly Ext: No edema, pulses are palpable, No calf tenderness Neuro : Benign findings Skin: No rash. - Assessment and Plan (1) PICC line infection Current Visit: Yes Status: Acute Assessment and Plan: Will f/u on blood cx cont empirical abx IV Vancomycin Concerning for PICC line displacement too will check CXR now If PICC line not displaced, and blood cx are negative, may not need to d/c PICC Line too will talk to IR in AM (2) Dehydration, mild Current Visit: No Status: Acute Assessment and Plan: on IVF (3) Hypokalemia Current Visit: No Status: Acute Assessment and Plan: cont replacing cont close monitoring (4) COPD (chronic obstructive pulmonary disease) Current Visit: No Status: Chronic Assessment and Plan: Not in exacerbation resumed home inhalers (5) Chronic pancreatitis Current Visit: No Status: Chronic Assessment and Plan: resumed home med (6) Failure to thrive Current Visit: No Status: Chronic Assessment and Plan: Unable to resume TPN due to infected PICC line cont pO Intake for now on Ensure TID (7) GERD (gastroesophageal reflux disease) Current Visit: No Status: Chronic Assessment and Plan: on PPI + Ranitidine (8) Severe protein-calorie malnutrition Current Visit: No Status: Chronic Assessment and Plan: Unable to resume TPN on Ensure for now Nutrition consulted - Time Spent with Patient Total time spent is greater than 50% in coordination of care (as documented) at patient's floor/unit and/or counseling patient: Internal Medicine: Result - Labs CBC & Chem 7: 09/16/18 06:18 09/16/18 06:18 Labs: Short CBC 09/16/18 Range/Units 06:18 WBC 8.6 (4.3-11.1) K/mcL Hgb 13.2 D (11.5-15.4) g/dL Hct 40.0 (35.3-44.9) % Plt Count 427 H (140-400) K/mcL Neutrophils # 2.6 (1.6-8.9) K/mcL BMP 09/16/18 06:18 Sodium 137 Potassium 3.3 L Chloride 100 Carbon Dioxide 27 BUN 14 Creatinine 0.53 L Glucose 96 Calcium 9.6 - ABG Interpretation ABG results: PT/INR, D-dimer PT 13.2 Seconds (9.4-12.1) H 09/16/18 06:18 Consult Discharge Plan - Plan Referrals: Fam Rubin DO [Primary Care Provider] - (1) PICC line infection Qualifiers: Encounter type: initial encounter Qualified Code(s): T80.219A - Unspecified infection due to central venous catheter, initial encounter (4) COPD (chronic obstructive pulmonary disease) Qualifiers: COPD type: unspecified COPD Qualified Code(s): J44.9 - Chronic obstructive pulmonary disease, unspecified (5) Chronic pancreatitis Qualifiers: Pancreatitis type: alcohol induced Qualified Code(s): K86.0 - Alcohol-induced chronic pancreatitis (6) Failure to thrive Qualifiers: Failure to thrive age range: in adult Qualified Code(s): R62.7 - Adult failure to thrive (7) GERD (gastroesophageal reflux disease) Qualifiers: Esophagitis presence: esophagitis presence not specified Qualified Code(s): K21.9 - Gastro-esophageal reflux disease without esophagitis
[2018-09-16] MEDS: 0.9 % Sodium Chloride 1,000 ML IVC SCH (11:38)
[2018-09-16] MEDS: Nicotine 21 MG PATCH.TD24 TD SCH (16:54)
[2018-09-16] MEDS: OLANZapine 10 MG TAB.RAPDIS PO SCH (21:41)
[2018-09-17] MEDS: 0.9 % Sodium Chloride 1,000 ML IVC SCH (00:09)
[2018-09-17 04:32] LABS: Basophils % 0.4 %; Eosinophils # 0.8 K/mcL (0.0-0.6); Immature Granulocytes % 0.4 % (0-4); Lymphocytes # 3.6 K/mcL (0.6-4.6); Lymphocytes % 50.9 %; Mean Corpuscular HGB Conc 32.6 g/dL (31.6-35.5); Mean Corpuscular Hemoglobin 28.2 pg (28.0-33.3); Mean Corpuscular Volume 86.5 fL (83.0-100.0); Mean Platelet Volume 10.5 fL (9.4-12.4); Monocytes # 0.7 K/mcL (0.0-1.3); Monocytes % 9.3 %; Platelet Count 223 K/mcL (140-400); Red Blood Count 3.93 M/mcL (3.82-4.97)
[2018-09-17 04:52] LABS: BUN/Creatinine Ratio 32 (6-26); Blood Urea Nitrogen 12 mg/dL (6-20); Calcium 8.1 mg/dL (8.6-10.3); Carbon Dioxide 18 mEq/L (23-29); Chloride 113 mEq/L (98-107); Glucose 99 mg/dL (70-105); Magnesium 1.8 mg/dL (1.6-2.6); Osmolality,Calculated 294 (280-300); Sodium 142 mEq/L (136-145); eGFR For Non-African Americans > 60 (> 60)
[2018-09-17] MEDS ORDERED: 0.9 % Sodium Chloride 500 ML IVC ONE (05:14)
[2018-09-17 05:21] LABS: Hemoglobin 11.1 g/dL (11.5-15.4)
[2018-09-17] MEDS: *HR* Heparin 5,000 UNIT/ML VIAL SQ SCH ×2 (05:31→18:20)
[2018-09-17] MEDS: Nicotine 21 MG PATCH.TD24 TD SCH (08:12)
[2018-09-17] MEDS: *HR* Buprenorphine HCl 8 MG TAB.SUBL SL SCH ×2 (08:13→20:55)
[2018-09-17] MEDS: Famotidine 20 MG TABLET PO SCH ×2 (08:13→20:55)
[2018-09-17] MEDS: Pantoprazole 40 MG VIAL IVP SCH ×2 (08:13→20:56)
[2018-09-17] MEDS: (Vilazodone Hcl [Viibryd] 40 MG) PO SCH (08:14)
[2018-09-17] MEDS: ADDERALL 20 MG PO SCH ×2 (08:14→20:56)
--- NOTE | 2018-09-17 15:57 | Discharge Summary ---
- NOTES TO OUTPATIENT PROVIDER Notes to Outpatient Provider: f/u with PCP in one week. f/u with GI as scheduled Orders not resulted at time of discharge: Pending orders 09/16/18 03:59 Culture,Catheter Tip [RM] Stat 09/16/18 04:38 Culture,Wound [RM] Stat 09/16/18 08:51 Culture,Blood [BC] Stat 09/17/18 20:00 Vancomycin,Trough Timed Date of Encounter: 09/17/18 Time of Encounter: 15:46 - Discharge Diagnosis (1) PICC line infection Priority: Primary Status: Acute Qualifiers: Encounter type: initial encounter Qualified Code(s): T80.219A - Unspecified infection due to central venous catheter, initial encounter (2) Dehydration, mild Priority: Primary Status: Acute (3) Hypokalemia Priority: Secondary Status: Acute (4) COPD (chronic obstructive pulmonary disease) Priority: Secondary Status: Chronic Qualifiers: COPD type: unspecified COPD Qualified Code(s): J44.9 - Chronic obstructive pulmonary disease, unspecified (5) Chronic pancreatitis Priority: Secondary Status: Chronic Qualifiers: Pancreatitis type: alcohol induced Qualified Code(s): K86.0 - Alcohol- induced chronic pancreatitis (6) Failure to thrive Priority: Secondary Status: Chronic Qualifiers: Failure to thrive age range: in adult Qualified Code(s): R62.7 - Adult failure to thrive (7) GERD (gastroesophageal reflux disease) Priority: Secondary Status: Chronic Qualifiers: Esophagitis presence: esophagitis presence not specified Qualified Code(s): K21.9 - Gastro-esophageal reflux disease without esophagitis (8) Severe protein-calorie malnutrition Priority: Secondary Status: Chronic Hospital course: Ms. 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 She presented emergency room complaining of redness around her PICC site and as well as mild drainage of yellow secretions. She denied associated fever, nausea, vomiting or chills. She says she has had over 5 PICC lines and have never been infected previously. She was admitted in the hospital and did blood cx. Started her on empirical abx Vancomycin to cover MRSA. She still has mild erythema around the PICC insertion area with no active discharge now. Pt did mention she lost 30 lbs weight despite on TPN and PO intake. She was seen by GI, who recommend to transfer to [facility] for further care, since she did need EGD and further work up regarding her failure to thrive. She was supposedly to seen by GI at [facility] as part of her ongoing work up. So I called [facility] transfer center for further care, they gracefully accepted the pt for further care. So will d/c her [facility] today. Will d/c PICC line through IR and send the tip for culture. - Time Spent with Patient Total time spent providing and/or coordinating discharge services: - Discharge Medications Prescriptions: New Nicotine Patch [Nicoderm] 21 mg TD DAILY patch.[id number] Continued Cyanocobalamin (B-12) [Vitamin B12] 1,000 mcg IM QMONTH Ergocalciferol (VITAMIN D2) [Vitamin D2] 50,000 unit PO 2XW Furosemide [Lasix] 20 mg PO DAILY Lipase/Protease/Amylase [Virgilio Ramos 36,000 Units Capsule] 36,000 units PO TIDAC OLANZapine [Zyprexa] 20 mg PO HS Sucralfate [Carafate] 1 gm PO QID Vilazodone HCl [Viibryd] 40 mg PO DAILY Buprenorphine HCl 8 mg SL BID Dextroamphetamine/Amphetamine [Adderall 20 mg Tablet] 20 mg PO BID Spironolactone [Aldactone] 50 - 100 mg PO DAILY Esomeprazole Sodium [Nexium I.v.] 40 mg IV BID raNITIdine HCl [Zantac] 300 mg PO BID Clinimix E 5%-15% SOLUTION [Clinimix E 5%-15% Solution] 1,540 ml IV HS Home Medications: Cyanocobalamin (B-12) [Vitamin B12] 1,000 mcg IM QMONTH 12/18/17 [History] Ergocalciferol (VITAMIN D2) [Vitamin D2] 50,000 unit PO 2XW 12/18/17 [History] Furosemide [Lasix] 20 mg PO DAILY 12/18/17 [History] Lipase/Protease/Amylase [Virgilio Ramos 36,000 Units Capsule] 36,000 units PO TIDAC 0 12/18/17 [History] OLANZapine [Zyprexa] 20 mg PO HS 12/18/17 [History] Sucralfate [Carafate] 1 gm PO QID 12/18/17 [History] Vilazodone HCl [Viibryd] 40 mg PO DAILY 12/18/17 [History] Buprenorphine HCl 8 mg SL BID 03/22/18 [History] Clinimix E 5%-15% SOLUTION [Clinimix E 5%-15% Solution] 1,540 ml IV HS 03/22/18 [History] Dextroamphetamine/Amphetamine [Adderall 20 mg Tablet] 20 mg PO BID 03/22/18 [Hi story] Esomeprazole Sodium [Nexium I.v.] 40 mg IV BID 03/22/18 [History] Spironolactone [Aldactone] 50 - 100 mg PO DAILY 03/22/18 [History] raNITIdine HCl [Zantac] 300 mg PO BID 03/22/18 [History] Nicotine Patch [Nicoderm] 21 mg TD DAILY patch.td24 09/17/18 [Rx] Allergies/Adverse Reactions: Allergy/AdvReac Type Severity Reaction Status Date / Time cephalexin Allergy Rash Verified 09/16/18 03:54 clindamycin Allergy Rash Verified 09/16/18 03:54 nalbuphine [From Nubain] AdvReac "didn't Verified 09/16/18 03:54 like the way it made me feel" Date of admission: 09/16/18 06:09 Primary care physician: Fam Rubin DO Consults: 09/16/18 05:33 Consult to Nutrition [CONS] Routine Comment: Consulting Provider: NUTRITION Reason for Dietary Consult: TPN Start and Manage 09/17/18 09:57 Consult to Gastroenterology [CONS] Routine Consulting Provider: Gastroenterology Parul Reason for Consult: Known to your service.. came in with possible PICC line infection.. Failure to thrive pt. Time Notified: 09:59 Call Completed: Yes 09/17/18 14:20 Consult to Interventional Radiology [CONS] Routine Consulting Provider: Radiology Interventional Cols Reason for Consult: picc line removal R/T infection Time Notified: 14:21 Call Completed: Yes - Constitutional Vitals: Temp Pulse Resp BP Pulse Ox 98.4 F 93 16 94/64 100 09/17/18 10:50 09/17/18 10:50 09/17/18 10:50 09/17/18 10:50 09/17/18 10:50 General appearance: Present: A&O X 3, no acute distress, answers questions appropriately Exam: Gen: Alert, awake, Oriented to time,place and person..Looks very weak and lethargic Chest: Diminished breath sounds B/L, No wheezing, No crackles, No rales Mild erythema noticed over Rt side of chest wall region where she had PICC line Heart: S1S2+ RRR No murmurs Abd: Soft, NT, BS +, No organomegaly Ext: No edema, pulses are palpable, No calf tenderness Neuro : Benign findings Skin: No rash. - Patient Status Disposition: Transfer Other Condition: Fair - Discharge Instructions Follow Up With: Sami Hart DO [Resident] - 09/24/18 3:20 pm - Diet and Activity Activity: increase activity as tolerated
--- NOTE | 2018-09-17 16:25 | Gastroenterology Consult Note ---
<Ashly Ochoa - Last Filed: 09/17/18 16:30> Date of Encounter: 09/17/18 Time of Encounter: 09:50 - Assessment and plan (1) PICC line infection Current Visit: Yes Status: Acute Assessment and plan: Pt presents with some redness and drainage at PICC site. She is on home TPN and hydration due to malabsorption syndrome. Will defer to IR Qualifiers: Encounter type: initial encounter Qualified Code(s): T80.219A - Unspecified infection due to central venous catheter, initial encounter (2) Malabsorption syndrome Current Visit: No Status: Chronic Assessment and plan: Pt has large gastric ulcers, is being transferred to [facility] for EGD, will likely need surgical repair. Qualifiers: Intestinal malabsorption type: blind loop syndrome Qualified Code(s): K90.2 - Blind loop syndrome, not elsewhere classified (3) Failure to thrive Current Visit: No Status: Chronic Qualifiers: Failure to thrive age range: in adult Qualified Code(s): R62.7 - Adult failure to thrive - Time Spent With Patient Total time spent is greater than 50% in coordination of care (as documented) at patient's floor/unit and/or counseling patient: GI History of Present Illness - Data of Consult Patient: known to practice within the last 3 years Consult date: 09/17/18 Requesting Physician: Marina Welch MD - Consult Narrative Reason for consult: failure to thrive History of present illness: Ms. Abdi is a 42 year old female with PMHx of gastric ulcers, bipolar disorder, opiate abuse, alcohol abuse, pancreatitis, gastric bypass, on supplemental TPN due to severe protein caloric malnutrition who presented to the ED with picc line infection. She denies any worsening abdominal pain, diarrhea, nausea, vomiting, constipation or rectal bleeding. Procedures: EGD 03/12/2018 Dr. Manley: Non-bleeding gastric anastomotic ulcer 3cm in largest dimension. EGD 12/19/2017 Dr. Manley: Non-bleeding deep cratered anastomotic ulcers with no stigmata of bleeding, involving about 60% of circumference of anastomosis. EGD 10/04/2017 Dr. Manley: Non-bleeding gastric ulcer at anastomosis, moderate ch ronic inflammation. EGD 05/14/2016 Dr. Becker: Plastic water bottle cap in esophagus. EGD 10/2014 superficial ulcer at anastomosis, stomach with pseudo-diverticuli. EGD 11/2012 gastric ulcer, anastomosis ulcer,biopsy negative EGD 08/2012 anastomosis ulcer Colonoscopy 07/2012 colon redundant/tortuous EGD 02/2012 esophagitis at GE junction NSAID: None Anticoagulation: None Past Med Surg Social Fam HX - Past Medical History Medical history: arthritis, cirrhosis, COPD, GERD, osteoporosis, other Additional medical history: alcoholic cirrhosis, anemia, malabsorption, pancreatitis, post-op blind loop syndrome, lymphadema, ileus, vit D def, FTT, WPW Psychiatric history: anxiety, ADHD, bipolar, depression, prior suicide attempt - Past Surgical History Surgical History: appendectomy, cholecystectomy, herniorrhaphy, hysterectomy, other, bariatric surgery Additional surgical history: gastric bypass - Social History Smoking Status: Current every day smoker Smokeless Tobacco Status: No Alcohol use: none Drug use: none - Family History Father Adopted: No Living Status: Still Living Hx Family Cardiac Disorders: No Hx Family Respiratory Disorders: No Hx Family Cancer: No Hx Family GI Disorders: No Hx Family Endocrine Disorder: No Hx Family Neuromuscular Disorders: No Hx Family Neurologic Disorders: No Hx Family HEENT Disorders: No Hx Family Autoimmune Disorders: No Grandfather Living Status: Hx Family Cardiac Disorders: Yes (SD) Maternal Grandmother Living Status: Still Living Hx Family Cancer: Yes (Lung) Sister Living Status: Still Living Hx Family Cancer: Yes (Ovarian) Mother Adopted: No Living Status: Still Living Hx Family Cardiac Disorders: Yes Hx Family Respiratory Disorders: No Hx Family Cancer: No Hx Family GI Disorders: No Hx Family Endocrine Disorder: No Hx Family Neuromuscular Disorders: No Hx Family Neurologic Disorders: No Hx Family HEENT Disorders: No Hx Family Autoimmune Disorders: No Review of Systems: GI: as per [facility] GENERAL: denies fever, has some chills EYES: denies yellow discoloration ENT: denies pain with swallowing or difficulty swallowing CARDIO: denies chest pain, palpitations RESP: Shortness of breath with exertion : denies change in color of urine NEURO: weakness HEME: Denies any bruising MS: chronic back and joint pain DERM: denies rash or itching PSYCH: history of anxiety and bipolar depression - Constitutional Vitals: Temp Pulse Resp BP Pulse Ox 98.4 F 93 16 94/64 100 09/17/18 10:50 09/17/18 10:50 09/17/18 10:50 09/17/18 10:50 09/17/18 10:50 Exam: CONSTITUTIONAL:alert, no acute distress.HEAD:normocephalic, bitemporal wasting.EYES:no jaundice.NECK:no obvious swelling.HEART:regular rate and rhythm, no murmurs.CHEST: picc line to right anterior ches with redness and small amount of edema noted at insertion site LUNGS:bilateral poor air entry.ABDOMEN:non distended, soft, generalized tenderness, scars noted, no masses palpable, no organomegaly.RECTAL EXAM:Deferred.EXTREMITIES:no clubbing, cyanosis or edema.SKIN: pallor notedno stigmata of chronic liver disease.NEUROLOGIC:no obvious focal defect. Results - Labs CBC & Chem 7: 09/17/18 03:48 09/17/18 03:48 Labs: Last Result 09/17/18 03:48 Calcium 8.1 L Entire Visit 09/17/18 03:48 Hgb 11.1 L D Hct 34.0 L - ABG ABG results: PT/INR, D-dimer PT 13.2 Seconds (9.4-12.1) H 09/16/18 06:18 Consult Discharge Plan - Plan Referrals: Sami Hart DO [Resident] - 09/24/18 3:20 pm <Emanuel Manley - Last Filed: 09/17/18 18:04> Date of Encounter: 09/17/18 Time of Encounter: 14:00 - Time Spent With Patient Total time spent is greater than 50% in coordination of care (as documented) at patient's floor/unit and/or counseling patient: GI History of Present Illness - Data of Consult Requesting Physician: Marina Welch MD - Consult Narrative History of present illness: Ms. Abdi is a 42 year old female - Constitutional Vitals: Temp Pulse Resp BP Pulse Ox 98.4 F 93 16 94/64 100 09/17/18 10:50 09/17/18 10:50 09/17/18 10:50 09/17/18 10:50 09/17/18 10:50 Results - Labs CBC & Chem 7: 09/17/18 03:48 09/17/18 03:48 - ABG ABG results: PT/INR, D-dimer PT 13.2 Seconds (9.4-12.1) H 09/16/18 06:18 - Impressions Impressions Chest X-Ray 09/16/18 11:03 IMPRESSION: Central line via the right subclavian with the tip in the superior vena cava. Right pleural effusion. No pneumothorax. D/ / 09/16/2018 12:23:17 Shanelle Mon MD / Olga Whitlock Interpreting Provider: Shanelle Mon MD - Attending Attestation I have personally performed a face to face evaluation on this patient. I have reviewed and agree with the care plan. History and Exam by me shows: Patient seen. Denies any fever or chills. On examination: Right upper chest catheter has some redness around the exit site. Assessment: Patient with a history of Flynn-en-Y gastric bypass now with malabsorption on chronic TPN thera py and also history of nonhealing large anastomotic gastric ulcer now admitted PICC line exit site infection. Rec: Due to patient/family wishes patient will be transferred to [facility] both for the care of the PICC line infection also she need an EGD for her nonhealing gastric ulcer and also to decide about management of her long-term malabsorption as she may need the reversal of her gastric bypass
[2018-09-17 20:21] VITALS: BP 92/48
[2018-09-17] MEDS: OLANZapine 10 MG TAB.RAPDIS PO SCH (20:55)
[2018-09-17] MEDS ORDERED: Aminoglycoside Consult 1 EACH MC ONE (21:46)
== END 2018-09-17 21:47 | disposition short-term general hospital (02) | DRG 314 ==
LOC: 3BNU 02:22 → EMEROOARM 02:22 → 3BNU 05:39 → SUATTDRO 06:09
PROVIDERS: ADMIT Internal Medicine; ATTEND Family Medicine

== ENCOUNTER 2019-01-06 15:58 | Observation (INO) ==
[2019-01-06 16:40] LABS: Hemoglobin 11.8 g/dL (11.5-15.4); Mean Corpuscular HGB Conc 34.7 g/dL (31.6-35.5); Mean Corpuscular Hemoglobin 27.8 pg (28.0-33.3); Mean Platelet Volume 8.6 fL (9.4-12.4); Platelet Count 333 K/mcL (140-400); Red Blood Count 4.25 M/mcL (3.82-4.97); Red Cell Distribution Width 16.4 % (11.5-14.5)
[2019-01-06 16:51] LABS: Acetaminophen < 10 mcg/mL (10-20); BUN/Creatinine Ratio 16 (6-26); Blood Urea Nitrogen 8 mg/dL (6-20); Calcium 7.6 mg/dL (8.6-10.3); Carbon Dioxide 27 mEq/L (23-29); Chloride 99 mEq/L (98-107); Ethanol 238 mg/dL (Less than 10); Glucose 147 mg/dL (70-105); Osmolality,Calculated 281 (280-300); Potassium 3.5 mEq/L (3.5-5.1); Salicylate < 2.5 mg/dL (15.0-30.0); Sodium 135 mEq/L (136-145); eGFR For African Americans > 60 (> 60); eGFR For Non-African Americans > 60 (> 60)
--- NOTE | 2019-01-06 16:59 | Emergency Department Note ---
Disposition Clinical Impression: Depression Qualifiers: Depression Type: unspecified Qualified Code(s): F32.9 - Major depressive disorder, single episode, unspecified Alcoholic cirrhosis of liver Qualifiers: Ascites presence: unspecified Qualified Code(s): K70.30 - Alcoholic cirrhosis of liver without ascites Disposition: Admitted As Inpatient Condition: Good Referrals: NONE,PCP [Primary Care Provider] - Forms: ED Satisfaction Letter Time of Disposition: 19:12 Psych HPI - General Chief Complaint: ED Psychiatric Symptoms Stated Complaint: SI Time Seen by Provider: 01/06/19 16:12 Source: family Mode of arrival: ambulatory Limitations: no limitations Nursing Notes Reviewed: Yes Vital Signs Reviewed: Yes - History of Present Illness HPI Narrative: Patient is a 43-year-old female presenting with depression. Patient with known history of cirrhosis, end-stage, currently with PICC line placement secondary to malnutrition. Patient states that last drink was last night, she had gone on a recent one week gonsalez as she had been sober for a few weeks prior to that. She is followed by Dr. Amador, who recently gave her the news that she was end-stage cirrhosis, her family has been discussing hospice which made the patient extremely depressed. She states that she has no active suicidal thoughts or ideation, no HI or hallucinations. She does state that she has lost all hope and feels as though she has no quality of life. Patient otherwise denies altered mentation, shortness of breath, chest pain, abdominal pain, nausea or vomiting. No recent fevers or chills. - Related Data Home Medications Medication Instructions Recorded Confirmed Cyanocobalamin (B-12) [Vitamin B12] 1,000 mcg IM QMONTH 12/18/17 10/17/18 Ergocalciferol (VITAMIN D2) 1,000 unit PO 2XW 12/18/17 10/17/18 [Vitamin D2] Furosemide [Lasix] 20 mg PO DAILY 12/18/17 10/17/18 Lipase/Protease/Amylase [Virgilio Ramos 36,000 units PO TIDAC 12/18/17 10/17/18 36,000 Units Capsule] OLANZapine [Zyprexa] 20 mg PO HS 12/18/17 10/17/18 Sucralfate [Carafate] 1 gm PO QID 12/18/17 10/17/18 Vilazodone HCl [Viibryd] 40 mg PO DAILY 12/18/17 10/17/18 Buprenorphine HCl 8 mg SL BID 03/22/18 10/17/18 Dextroamphetamine/Amphetamine 20 mg PO BID 03/22/18 10/17/18 [Adderall 20 mg Tablet] Esomeprazole Sodium [Nexium I.v.] 40 mg IV BID 03/22/18 10/17/18 Spironolactone [Aldactone] 50 - 100 mg PO DAILY 03/22/18 10/17/18 raNITIdine HCl [Zantac] 300 mg PO BID 03/22/18 10/17/18 Previous Rx's Medication Instructions Recorded Sulfamethoxazole/Trimeth DS 1 each PO BID #14 tablet 12/25/18 [Bactrim DS] Allergies Allergy/AdvReac Type Severity Reaction Status Date / Time cephalexin Allergy Rash Verified 12/17/18 14:28 clindamycin Allergy Rash Verified 12/17/18 14:28 nalbuphine [From Nubain] AdvReac "didn't Verified 12/17/18 14:28 like the way it made me feel" Review of Systems: In addition to that documented in the HPI above, the additional ROS was obtained: General: Denies fever. Denies chills. Denies weight loss. Denies behavioral change. Eyes: Denies visual changes. ENT: Denies nasal congestion. Denies sore throat. Denies hearing change. Cardio: Denies chest pain. Denies palpitations. Respiratory: Denies cough. Denies shortness of breath. Denies wheezing. GI: Denies nausea, Denies vomiting, or diarrhea. Denies hematochezia denies melena. Denies abdominal pain. : Denies dysuria, hematuria, or urinary retention MSK: Denies back pain. Denies joint swelling. Neuro: Denies slurred speech. Denies numbness or tingling. Denies focal weakness. Denies headache. Denies loss of consciousness. Psych: Denies mood changes. All systems ED: reviewed and negative except as stated. 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 - Social History Smoking Status: Current some day smoker Smokeless Tobacco Status: No Alcohol use: Reports: none Drug use: Reports: none Physical Exam - General Limitations: no limitations General appearance: alert, anxious - Head Head exam: atraumatic, normocephalic - Eye Eye exam: Present: PERRL, EOMI, scleral icterus - ENT ENT exam: mucous membranes dry - Neck Neck exam: Present: trachea midline - Chest Chest inspection: Present: symmetric chest wall rise, other (Patient with PICC line to the right subclavian, no signs of induration or erythema) - Respiratory Respiratory exam: Present: normal lung sounds bilaterally. Absent: wheezes - Cardiovascular Cardiovascular exam: Present: regular rate, normal rhythm - Abdominal Exam Abdominal exam: Present: soft, Non-Tender, distention (Mild distention which patient states is at baseline). Absent: tenderness, guarding, rebound, rigidity - Extremities Exam Extremities exam: Present: normal inspection, full ROM. Absent: tenderness, pedal edema - Neurological Exam Neurological exam: Present: alert, oriented X3 - Psychiatric Psychiatric exam: Present: normal mood, anxious - Skin Skin exam: Present: warm, dry, other (Jaundice to the face and chest). Absent: diaphoresis Course Vital Signs Temperature 98.1 F 01/06/19 16:29 Pulse Rate 96 01/06/19 16:29 Respiratory Rate 16 01/06/19 16:29 Blood Pressure 117/81 01/06/19 16:29 O2 Sat by Pulse Oximetry 93 01/06/19 16:29 Temperature 98.1 F 01/06/19 16:29 Pulse Rate 79 01/06/19 19:02 Respiratory Rate 15 01/06/19 19:02 Blood Pressure 118/77 01/06/19 19:02 O2 Sat by Pulse Oximetry 94 01/06/19 19:02 Oxygen Delivery Oxygen Delivery Room Air Psych - MDM Narrative Medical decision making narrative: Patient is a 43-year-old female presenting with depression. Patient with known history of end-stage cirrhosis secondary to alcoholism. Last drink was approximately last night. Patient presents anxious but no active seizure or and withdrawal symptoms at this time. Patient will be medically cleared, pending alcohol level, patient has disposition of either one day or admission for withdrawal. Following medical clearance, patient appears to have alcohol greater than 80, at 248 at this time. Due to this [facility] protocols were placed, patient will be admitted for medical clearance. Patient agrees with disposition at this time, is open to have hospice consult once admitted. - Lab Data Result diagrams: 01/06/19 16:20 01/06/19 16:20 Lab Results 01/06/19 01/06/19 01/06/19 Range/Units 16:20 16:20 16:56 WBC 5.0 (4.3-11.1) K/mcL RBC 4.25 (3.82-4.97) M/mcL Hgb 11.8 (11.5-15.4) g/dL Hct 34.0 L (35.3-44.9) % MCV 80.0 L (83.0-100.0) fL MCH 27.8 L (28.0-33.3) pg MCHC 34.7 (31.6-35.5) g/dL RDW 16.4 H (11.5-14.5) % Plt Count 333 (140-400) K/mcL MPV 8.6 L (9.4-12.4) fL Seg Neutrophils % 28.0 % Lymphocytes % 70.0 % Monocytes % 2.0 % Neutrophils # 1.4 L (1.6-8.9) K/mcL Lymphocytes # 3.5 (0.6-4.6) K/mcL Monocytes # 0.1 (0.0-1.3) K/mcL Platelet Estimate Normal (Normal) Sodium 135 L (136-145) mEq/L Potassium 3.5 (3.5-5.1) mEq/L Chloride 99 (98-107) mEq/L Carbon Dioxide 27 (23-29) mEq/L BUN 8 (6-20) mg/dL Creatinine 0.50 L (0.60-1.20) mg/dL Est GFR ( Amer) > 60 (> 60) Est GFR (Non-Af Amer) > 60 (> 60) BUN/Creatinine Ratio 16 (6-26) Glucose 147 H (70-105) mg/dL Calculated Osmolality 281 (280-300) Calcium 7.6 L (8.6-10.3) mg/dL Urine Color Yellow (Yellow) Urine Clarity Clear (Clear) Urine pH 6.0 (5.0-8.0) pH Units Ur Specific [place] 1.020 (1.010-1.025) Urine Protein Trace (Neg-Trace) mg/dL Urine Glucose (UA) Normal (Normal) mg/dL Urine Ketones Trace H (Negative) mg/dL Urine Blood Negative (Negative) Urine Nitrite Negative (Negative) Urine Bilirubin Small H (Negative) Urine Urobilinogen 2.0 H (Normal) mg/dL Ur Leukocyte Esterase Trace H (Negative) Urine Microscopic RBC 0-3 (0-3) per hpf Urine Microscopic WBC 0-3 (0-3) per hpf Ur Squamous Epith Cells Few (None-Few) per lpf Urine Bacteria Few (None-Few) per hpf Hyaline Casts None Seen (None-Few) per lpf Urine Test (Negative) Salicylates < 2.5 L (15.0-30.0) mg/dL Urine Opiates Screen (Rkxzks=761) ng/mL Ur Buprenorphine Scrn (Cutoff=5) ng/mL Acetaminophen < 10 L (10-20) mcg/mL Ur Barbiturates Screen (Rzkali=639) ng/mL Ur Phencyclidine Scrn (Cutoff=25) ng/mL Ur Amphetamines Screen (Vtmqfc=0633) ng/mL U Benzodiazepines Scrn (Mnzksn=686) ng/mL Urine Cocaine Screen (Cutoff= 300) ng/mL U Marijuana (THC) Screen (Cutoff = 50) ng/mL Ur Drug Screen Interp Ethyl Alcohol 238 H (Less than 10) mg/dL 01/06/19 01/06/19 Range/Units 16:56 16:56 WBC (4.3-11.1) K/mcL RBC (3.82-4.97) M/mcL Hgb (11.5-15.4) g/dL Hct (35.3-44.9) % MCV (83.0-100.0) fL MCH (28.0-33.3) pg MCHC (31.6-35.5) g/dL RDW (11.5-14.5) % Plt Count (140-400) K/mcL MPV (9.4-12.4) fL Seg Neutrophils % % Lymphocytes % % Monocytes % % Neutrophils # (1.6-8.9) K/mcL Lymphocytes # (0.6-4.6) K/mcL Monocytes # (0.0-1.3) K/mcL Platelet Estimate (Normal) Sodium (136-145) mEq/L Potassium (3.5-5.1) mEq/L Chloride (98-107) mEq/L Carbon Dioxide (23-29) mEq/L BUN (6-20) mg/dL Creatinine (0.60-1.20) mg/dL Est GFR ( Amer) (> 60) Est GFR (Non-Af Amer) (> 60) BUN/Creatinine Ratio (6-26) Glucose (70-105) mg/dL Calculated Osmolality (280-300) Calcium (8.6-10.3) mg/dL Urine Color (Yellow) Urine Clarity (Clear) Urine pH (5.0-8.0) pH Units Ur Specific [place] (1.010-1.025) Urine Protein (Neg-Trace) mg/dL Urine Glucose (UA) (Normal) mg/dL Urine Ketones (Negative) mg/dL Urine Blood (Negative) Urine Nitrite (Negative) Urine Bilirubin (Negative) Urine Urobilinogen (Normal) mg/dL Ur Leukocyte Esterase (Negative) Urine Microscopic RBC (0-3) per hpf Urine Microscopic WBC (0-3) per hpf Ur Squamous Epith Cells (None-Few) per lpf Urine Bacteria (None-Few) per hpf Hyaline Casts (None-Few) per lpf Urine Test Negative (Negative) Salicylates (15.0-30.0) mg/dL Urine Opiates Screen Negative (Mgayue=068) ng/mL Ur Buprenorphine Scrn Positive H (Cutoff=5) ng/mL Acetaminophen (10-20) mcg/mL Ur Barbiturates Screen Negative (Lyxssa=293) ng/mL Ur Phencyclidine Scrn Negative (Cutoff=25) ng/mL Ur Amphetamines Screen Negative (Bnvicf=4061) ng/mL U Benzodiazepines Scrn Negative (Dhsixz=831) ng/mL Urine Cocaine Screen Negative (Cutoff= 300) ng/mL U Marijuana (THC) Screen Negative (Cutoff = 50) ng/mL Ur Drug Screen Interp See Below Ethyl Alcohol (Less than 10) mg/dL Psychiatric Medical Clearance - Medical Clearance Checklist Medical History: No Social History Section defined Current Vitals: Last Vital Signs Temp 98.1 F 01/06/19 16:29 Pulse 79 01/06/19 19:02 Resp 15 01/06/19 19:02 BP 118/77 01/06/19 19:02 Pulse Ox 94 01/06/19 19:02 Psychiatric Lab Panel: Drug Levels and Toxicity 01/06/19 01/06/19 16:20 16:56 Urine Opiates Screen Negative Acetaminophen < 10 L Ur Barbiturates Screen Negative Ur Phencyclidine Scrn Negative Ur Amphetamines Screen Negative U Benzodiazepines Scrn Negative Urine Cocaine Screen Negative U Marijuana (THC) Screen Negative Ethyl Alcohol 238 H Abnormal Labs: Abnormal lab results Hct 34.0 % (35.3-44.9) L 01/06/19 16:20 MCV 80.0 fL (83.0-100.0) L 01/06/19 16:20 MCH 27.8 pg (28.0-33.3) L 01/06/19 16:20 RDW 16.4 % (11.5-14.5) H 01/06/19 16:20 MPV 8.6 fL (9.4-12.4) L 01/06/19 16:20 Neutrophils # 1.4 K/mcL (1.6-8.9) L 01/06/19 16:20 Sodium 135 mEq/L (136-145) L 01/06/19 16:20 Creatinine 0.50 mg/dL (0.60-1.20) L 01/06/19 16:20 Glucose 147 mg/dL (70-105) H 01/06/19 16:20 Calcium 7.6 mg/dL (8.6-10.3) L 01/06/19 16:20 Urine Ketones Trace mg/dL (Negative) H 01/06/19 16:56 Urine Bilirubin Small (Negative) H 01/06/19 16:56 Urine Urobilinogen 2.0 mg/dL (Normal) H 01/06/19 16:56 Ur Leukocyte Esterase Trace (Negative) H 01/06/19 16:56 Salicylates < 2.5 mg/dL (15.0-30.0) L 01/06/19 16:20 Ur Buprenorphine Scrn Positive ng/mL (Cutoff=5) H 01/06/19 16:56 Acetaminophen < 10 mcg/mL (10-20) L 01/06/19 16:20 Ethyl Alcohol 238 mg/dL (Less than 10) H 01/06/19 16:20 Statement of Medical Clearance: I have evaluated the patient, reviewed diagnostic information, and certify that the patient's medical condition is sufficiently stable that transfer to the psychiatric unit does not pose a significant risk of deterioration.
[2019-01-06 17:06] LABS: Lymphocytes # 3.5 K/mcL (0.6-4.6); Monocytes # 0.1 K/mcL (0.0-1.3); Neutrophils # 1.4 K/mcL (1.6-8.9); Platelet Estimate Normal (Normal)
[2019-01-06 17:13] LABS: Bilirubin,Urine Small (Negative); Blood,Urine Negative (Negative); Clarity,Urine Clear (Clear); Color,Urine Yellow (Yellow); Glucose,Urine (UA) Normal (Normal); Ketones,Urine Trace mg/dL (Negative); Leukocyte Esterase,Urine Trace (Negative); Nitrite,Urine Negative (Negative); Protein,Urine Trace mg/dL (Neg-Trace)
[2019-01-06 17:15] LABS: Hyaline Casts,Urine None Seen per lpf (None-Few); WBC,Urine 0-3 per hpf (0-3)
[2019-01-06 17:22] LABS: Amphetamine Screen,Urine Negative ng/mL (Cutoff=1000); Barbiturate Screen,Urine Negative ng/mL (Cutoff=200); Benzodiazepines Screen,Urine Negative ng/mL (Cutoff=200); Cannabinoid Screen,Urine Negative ng/mL (Cutoff = 50); Cocaine Screen,Urine Negative ng/mL (Cutoff= 300); Opiate Screen,Urine Negative ng/mL (Cutoff=300); Phencyclidine Screen,Urine Negative ng/mL (Cutoff=25)
--- NOTE | 2019-01-06 17:36 | Emergency Department Note ---
Disposition Clinical Impression: Depression Qualifiers: Depression Type: unspecified Qualified Code(s): F32.9 - Major depressive disorder, single episode, unspecified Alcoholic cirrhosis of liver Qualifiers: Ascites presence: unspecified Qualified Code(s): K70.30 - Alcoholic cirrhosis of liver without ascites Disposition: Admitted As Inpatient Condition: Good Time of Disposition: 19:12 General Adult HPI - General Chief complaint: ED Psychiatric Symptoms Stated complaint: SI Time Seen by Provider: 01/06/19 16:12 Source: family Limitations: no limitations - History of Present Illness Pain Scale: 0 - Related Data Home Medications Medication Instructions Recorded Confirmed Ergocalciferol (VITAMIN D2) 1,000 unit PO 2XW 12/18/17 01/06/19 [Vitamin D2] Lipase/Protease/Amylase [Creon Dr 36,000 units PO TIDAC 12/18/17 01/06/19 36,000 Units Capsule] OLANZapine [Zyprexa] 20 mg PO HS 12/18/17 01/06/19 Sucralfate [Carafate] 1 gm PO QID 12/18/17 01/06/19 Vilazodone HCl [Viibryd] 40 mg PO DAILY 12/18/17 01/06/19 Buprenorphine HCl 8 mg SL BID 03/22/18 01/06/19 Dextroamphetamine/Amphetamine 20 mg PO BID 03/22/18 01/06/19 [Adderall 20 mg Tablet] Esomeprazole Sodium [Nexium I.v.] 40 mg IV BID 03/22/18 01/06/19 raNITIdine HCl [Zantac] 300 mg PO BID 03/22/18 01/06/19 Allergies Allergy/AdvReac Type Severity Reaction Status Date / Time cephalexin Allergy Rash Verified 12/17/18 14:28 clindamycin Allergy Rash Verified 12/17/18 14:28 nalbuphine [From Nubain] AdvReac "didn't Verified 12/17/18 14:[address] it made me feel" Past Medical History - Past Medical History Medical history: Reports: arthritis, cirrhosis, COPD, GERD, osteoporosis, pulmonary embolus, other Surgical history: Reports: appendectomy, colectomy, herniorrhaphy, hysterectomy Psychiatric history: Reports: anxiety, ADHD, bipolar, depression, prior suicide attempt PRODUCTION WEIGHER history: Reports: bilateral tubal ligation - Social History Smoking Status: Current some day smoker Smokeless Tobacco Status: No Alcohol use: Reports: none Drug use: Reports: none Physical Exam - General Limitations: no limitations Course Vital Signs Temperature 98.1 F 01/06/19 16:29 Pulse Rate 96 01/06/19 16:29 Respiratory Rate 16 01/06/19 16:29 Blood Pressure 117/81 01/06/19 16:29 O2 Sat by Pulse Oximetry 93 01/06/19 16:29 Temperature 98.9 F 01/06/19 20:46 Pulse Rate 88 01/06/19 23:49 Respiratory Rate 16 01/06/19 23:49 Blood Pressure 105/69 01/06/19 23:49 O2 Sat by Pulse Oximetry 96 01/06/19 23:49 Oxygen Delivery Oxygen Delivery Room Air Medical Decision Making - Lab Data Result diagrams: 01/06/19 16:20 01/06/19 16:20 Lab Results 01/06/19 01/06/19 01/06/19 Range/Units 16:20 16:20 16:20 WBC 5.0 (4.3-11.1) K/mcL RBC 4.25 (3.82-4.97) M/mcL Hgb 11.8 (11.5-15.4) g/dL Hct 34.0 L (35.3-44.9) % MCV 80.0 L (83.0-100.0) fL MCH 27.8 L (28.0-33.3) pg MCHC 34.7 (31.6-35.5) g/dL RDW 16.4 H (11.5-14.5) % Plt Count 333 (140-400) K/mcL MPV 8.6 L (9.4-12.4) fL Seg Neutrophils % 28.0 % Lymphocytes % 70.0 % Monocytes % 2.0 % Neutrophils # 1.4 L (1.6-8.9) K/mcL Lymphocytes # 3.5 (0.6-4.6) K/mcL Monocytes # 0.1 (0.0-1.3) K/mcL Platelet Estimate Normal (Normal) PT 11.9 (9.4-12.1) Seconds INR 1.0 APTT 37.3 H (26.0-36.0) Seconds Sodium 135 L (136-145) mEq/L Potassium 3.5 (3.5-5.1) mEq/L Chloride 99 (98-107) mEq/L Carbon Dioxide 27 (23-29) mEq/L BUN 8 (6-20) mg/dL Creatinine 0.50 L (0.60-1.20) mg/dL Est GFR ( Amer) > 60 (> 60) Est GFR (Non-Af Amer) > 60 (> 60) BUN/Creatinine Ratio 16 (6-26) Glucose 147 H (70-105) mg/dL Calculated Osmolality 281 (280-300) Calcium 7.6 L (8.6-10.3) mg/dL Total Bilirubin 0.5 (0.3-1.0) mg/dL Direct Bilirubin 0.2 (0.0-0.2) mg/dL Indirect Bilirubin 0.3 (0.0-1.2) mg/dL AST 127 H (13-39) Units/L ALT 58 H (7-52) Units/L Alkaline Phosphatase 163 H (34-104) Units/L Serum Total Protein 5.6 L (6.4-8.9) g/dL Albumin 3.1 L (3.5-5.7) g/dL Globulin 2.5 (2.4-3.5) g/dL Albumin/Globulin Ratio 1.2 (1.1-2.2) Lipase 34 (11-82) Units/L Urine Color (Yellow) Urine Clarity (Clear) Urine pH (5.0-8.0) pH Units Ur Specific [place] (1.010-1.025) Urine Protein (Neg-Trace) mg/dL Urine Glucose (UA) (Normal) mg/dL Urine Ketones (Negative) mg/dL Urine Blood (Negative) Urine Nitrite (Negative) Urine Bilirubin (Negative) Urine Urobilinogen (Normal) mg/dL Ur Leukocyte Esterase (Negative) Urine Microscopic RBC (0-3) per hpf Urine Microscopic WBC (0-3) per hpf Ur Squamous Epith Cells (None-Few) per lpf Urine Bacteria (None-Few) per hpf Hyaline Casts (None-Few) per lpf Urine Test (Negative) Salicylates < 2.5 L (15.0-30.0) mg/dL Urine Opiates Screen (Cuwstn=555) ng/mL Ur Buprenorphine Scrn (Cutoff=5) ng/mL Acetaminophen < 10 L (10-20) mcg/mL Ur Barbiturates Screen (Qdwvsu=980) ng/mL Ur Phencyclidine Scrn (Cutoff=25) ng/mL Ur Amphetamines Screen (Fkrtjv=3136) ng/mL U Benzodiazepines Scrn (Abkmnx=451) ng/mL Urine Cocaine Screen (Cutoff= 300) ng/mL U Marijuana (THC) Screen (Cutoff = 50) ng/mL Ur Drug Screen Interp Ethyl Alcohol 238 H (Less than 10) mg/dL 01/06/19 01/06/19 01/06/19 Range/Units 16:56 16:56 16:56 WBC (4.3-11.1) K/mcL RBC (3.82-4.97) M/mcL Hgb (11.5-15.4) g/dL Hct (35.3-44.9) % MCV (83.0-100.0) fL MCH (28.0-33.3) pg MCHC (31.6-35.5) g/dL RDW (11.5-14.5) % Plt Count (140-400) K/mcL MPV (9.4-12.4) fL Seg Neutrophils % % Lymphocytes % % Monocytes % % Neutrophils # (1.6-8.9) K/mcL Lymphocytes # (0.6-4.6) K/mcL Monocytes # (0.0-1.3) K/mcL Platelet Estimate (Normal) PT (9.4-12.1) Seconds INR APTT (26.0-36.0) Seconds Sodium (136-145) mEq/L Potassium (3.5-5.1) mEq/L Chloride (98-107) mEq/L Carbon Dioxide (23-29) mEq/L BUN (6-20) mg/dL Creatinine (0.60-1.20) mg/dL Est GFR ( Amer) (> 60) Est GFR (Non-Af Amer) (> 60) BUN/Creatinine Ratio (6-26) Glucose (70-105) mg/dL Calculated Osmolality (280-300) Calcium (8.6-10.3) mg/dL Total Bilirubin (0.3-1.0) mg/dL Direct Bilirubin (0.0-0.2) mg/dL Indirect Bilirubin (0.0-1.2) mg/dL AST (13-39) Units/L ALT (7-52) Units/L Alkaline Phosphatase (34-104) Units/L Serum Total Protein (6.4-8.9) g/dL Albumin (3.5-5.7) g/dL Globulin (2.4-3.5) g/dL Albumin/Globulin Ratio (1.1-2.2) Lipase (11-82) Units/L Urine Color Yellow (Yellow) Urine Clarity Clear (Clear) Urine pH 6.0 (5.0-8.0) pH Units Ur Specific [place] 1.020 (1.010-1.025) Urine Protein Trace (Neg-Trace) mg/dL Urine Glucose (UA) Normal (Normal) mg/dL Urine Ketones Trace H (Negative) mg/dL Urine Blood Negative (Negative) Urine Nitrite Negative (Negative) Urine Bilirubin Small H (Negative) Urine Urobilinogen 2.0 H (Normal) mg/dL Ur Leukocyte Esterase Trace H (Negative) Urine Microscopic RBC 0-3 (0-3) per hpf Urine Microscopic WBC 0-3 (0-3) per hpf Ur Squamous Epith Cells Few (None-Few) per lpf Urine Bacteria Few (None-Few) per hpf Hyaline Casts None Seen (None-Few) per lpf Urine Test Negative (Negative) Salicylates (15.0-30.0) mg/dL Urine Opiates Screen Negative (Smhqos=165) ng/mL Ur Buprenorphine Scrn Positive H (Cutoff=5) ng/mL Acetaminophen (10-20) mcg/mL Ur Barbiturates Screen Negative (Qjiqjc=459) ng/mL Ur Phencyclidine Scrn Negative (Cutoff=25) ng/mL Ur Amphetamines Screen Negative (Mjcqrx=9504) ng/mL U Benzodiazepines Scrn Negative (Qkqscl=046) ng/mL Urine Cocaine Screen Negative (Cutoff= 300) ng/mL U Marijuana (THC) Screen Negative (Cutoff = 50) ng/mL Ur Drug Screen Interp See Below Ethyl Alcohol (Less than 10) mg/dL Attestation Statement - Attestation Attestation: I examined this patient and my medical decision-making was reviewed with the Resident Physician. I agree with the documented findings, disposition and treatment plan as described except to the extent set forth below. Patient 43-year-old female presents to emergency department chief complaint of suicidal ideation. The patient reported been drinking today and states that she is upset with her family and is having suicidal thoughts. Physical exam patient is awake alert no acute distress patient. Intoxicated at this time. Medical decision management. A 38 at 1620. The patient will be observed in the ER until she was sober and the patient will undergo a evaluation by 1A
[2019-01-06 17:41] LABS: Bacteria,Urine Few per hpf (None-Few); RBC,Urine 0-3 per hpf (0-3); Squamous Epithelial Cell,Urine Few per lpf (None-Few)
[2019-01-06] MEDS ORDERED: *HR* Promethazine 25 MG/ML VIAL IVP PRN (17:58)
[2019-01-06] MEDS ORDERED: *HR* LORazepam 2 MG/ML VIAL IVP PRN ×2 (17:58)
[2019-01-06] MEDS ORDERED: 0.9 % Sodium Chloride 1,000 ML IVC ONE (18:00)
[2019-01-06] MEDS ORDERED: *HR* LORazepam 2 MG/ML VIAL IVP ONE (18:55)
[2019-01-06 19:19] LABS: Prothrombin Time 11.9 Seconds (9.4-12.1)
[2019-01-06 19:22] LABS: Activated Partial Thrombo Time 37.3 Seconds (26.0-36.0)
[2019-01-06 20:22] LABS: Alanine Aminotransferase 58 Units/L (7-52); Albumin 3.1 g/dL (3.5-5.7); Albumin/Globulin Ratio 1.2 (1.1-2.2); Alkaline Phosphatase 163 Units/L (34-104); Aspartate Amino Transferase 127 Units/L (13-39); Bilirubin,Direct 0.2 mg/dL (0.0-0.2); Bilirubin,Indirect 0.3 mg/dL (0.0-1.2); Bilirubin,Total 0.5 mg/dL (0.3-1.0); Globulin 2.5 g/dL (2.4-3.5); Lipase 34 Units/L (11-82); Total Protein 5.6 g/dL (6.4-8.9)
[2019-01-06] MEDS ORDERED: GI Cocktail 40 ML EACH PO ONE (22:28)
[2019-01-06] MEDS ORDERED: Ondansetron 4 MG/2 ML VIAL IVP PRN (22:39)
[2019-01-06] MEDS ORDERED: traMADol 50 MG TABLET PO PRN (22:41)
[2019-01-06] MEDS ORDERED: Naloxone 0.4 MG/ML INJ IVP PRN (22:41)
[2019-01-06] MEDS: 0.9 % Sodium Chloride 1,000 ML IVC SCH (23:29)
[2019-01-06] MEDS: Pantoprazole 40 MG VIAL IVP SCH (23:30)
--- NOTE | 2019-01-07 00:39 | Internal Med History&Physical ---
Date of Encounter: 01/06/19 Time of Encounter: 22:15 Internal Medicine - H&P: HPI Chief complaint: Alcohol withdrawal Admitted From: Emergency Dept Plans for Post Hospital Care: Home History of present illness: Ms. Abdi is a 43 year old female w/PMH of arthritis, cirrhosis, COPD, GERD, osteoporosis, history of PE several years ago, anxiety, ADHD, bipolar depression, and prior suicide attempt presents from the ED with chief complaint of withdrawal from recent alcohol abuse. Patient is currently in end-stage cirrhosis and presents as malnourished. PICC line was placed previously for TPN. Patient states that she went on a drinking "gonsalez" after discussion of her end- stage cirrhosis and Hospice. Patient states she is very depressed and has many regrets. Pt. denies any current SI or HI but does report that she feels hopeless and currently has no quality of life. Patient reports weakness, abdominal pain, nausea, vomiting, tremors, diarrhea, constipation, and anxiety but denies recent illness, fever, chills, headache, changes in vision, unusual bleeding, chest pain, shortness of breath, dizziness, lightheadedness, numbness, tingling, pre- syncope, or syncope. Past Med Surg Social Fam HX - Past Medical History Source: patient, old records reviewed Medical history: arthritis, cirrhosis, COPD, GERD, osteoporosis, pulmonary embolus (Several years ago), other Additional medical history: alcoholic cirrhosis, anemia, malabsorption, pancreatitis, post-op blind loop syndrome, lymphadema, ileus, vit D def, FTT, WPW Psychiatric history: anxiety, ADHD, bipolar, depression, prior suicide attempt - Past Surgical History Surgical History: appendectomy, colectomy, herniorrhaphy, hysterectomy Additional surgical history: gastric bypass, tubal ligation, cardiac ablation. multiple bowel surgeries - Social History Smoking Status: Current some day smoker Packs per day: 1/2 to 1 PPD Smokeless Tobacco Status: No Alcohol use: none Drug use: none Current living situation: Home Activity Level: Independent ambulation Recent Out of Country Travel Within the Last 8 Weeks: No Exposure or Possible Exposure to Illness During Travel: No - Family History Father Race: Family Member Ethnicity: Non- Living Status: Still Living Hx Family Medical Disorders: No Grandfather Race: Family Member Ethnicity: Non- Living Status: Hx Family Cardiac Disorders: Yes (SD) Maternal Grandmother Race: Family Member Ethnicity: Non- Living Status: Still Living Hx Family Cancer: Yes (Lung) Sister Race: Family Member Ethnicity: Non- Living Status: Still Living Hx Family Cancer: Yes (Ovarian) Mother Adopted: No Race: Family Member Ethnicity: Non- Living Status: Still Living Hx Family Cardiac Disorders: Yes (HTN) Hx Family Psychosocial Disorders: Yes (Morbid obesity) Internal Medicine - H&P: Meds Ergocalciferol (VITAMIN D2) [Vitamin D2] 1,000 unit PO 2XW 12/18/17 [History] Lipase/Protease/Amylase [Creon Dr 36,000 Units Capsule] 36,000 units PO TIDAC 12/18/17 [History] OLANZapine [Zyprexa] 20 mg PO HS 12/18/17 [History] Sucralfate [Carafate] 1 gm PO QID 12/18/17 [History] Vilazodone HCl [Viibryd] 40 mg PO DAILY 12/18/17 [History] Buprenorphine HCl 8 mg SL BID 03/22/18 [History] Dextroamphetamine/Amphetamine [Adderall 20 mg Tablet] 20 mg PO BID 03/22/18 [History] Esomeprazole Sodium [Nexium I.v.] 40 mg IV BID 03/22/18 [History] raNITIdine HCl [Zantac] 300 mg PO BID 03/22/18 [History] Allergy/AdvReac Type Severity Reaction Status Date / Time cephalexin Allergy Rash Verified 12/17/18 14:28 clindamycin Allergy Rash Verified 12/17/18 14:28 nalbuphine [From Nubain] AdvReac "didn't Verified 12/17/18 14:28 like the way it made me feel" All Systems PM: A 10-system review of systems was performed and is negative for pertinent findings except as documented above in the HPI. - Constitutional Constitutional: as per HPI, fatigue, weakness, no chills, no fever(s), no night sweats - EENT Eyes: no change in vision, no discharge, no pain, no photophobia Ears: no ear discharge, no ear pain, no tinnitus Nose, mouth and throat: no dysphagia, no nasal discharge, no neck pain, no sore throat - Breasts Breasts: as per HPI - Cardiovascular Cardiovascular ROS IM: no chest pain, no diaphoresis, no dyspnea, no lightheadedness, no palpitations, no syncope - Respiratory Respiratory: no cough, no dyspnea, no wheezing, no excessive phlegm production - Gastrointestinal Gastrointestinal: as per HPI, abdominal pain, constipation, diarrhea, nausea, vomiting, no hematemesis, no hematochezia, no melena - Genitourinary Genitourinary: no change in urinary stream, no dysuria, no flank pain, no hematuria Menstruation: as per HPI, post hysterectomy - Musculoskeletal Musculoskeletal ROS IM: no numbness, no tingling - Integumentary Integumentary IM: no rash, no unusual bruising - Neurological Neurological ROS: as per HPI, weakness, no confusion, no convulsions, no focal weakness, no numbness, no tingling, no tremor(s) - Psychiatric Psychiatric: as per HPI, anxiety, depression, hopelessness, other (Prior suicide attempt) - Endocrine Endocrine IM: as per HPI - Hematologic/Lymphatic Hematologic/Lymphatic: no easy bruising - Allergic/Immunologic Allergic/Immunologic: as per HPI - Constitutional Vitals: Temp Pulse Resp BP Pulse Ox 98.9 F 88 16 105/69 96 01/06/19 20:46 01/06/19 23:49 01/06/19 23:49 01/06/19 23:49 01/06/19 23:49 General appearance: Present: cooperative, disheveled, mild distress (Anxiety), A&O X 3, underweight, answers questions appropriately Exam: Patient examined at bedside. Patient is clearly anxious during my examination. Patient reports nausea and high anxiety, likely d/t alcohol withdrawal. Patient expresses regrets and became tearful. I suggested she speak to SW regarding AA to which she was amenable. Patient denies any other sx or complaints on examination. VS: 98.9F temp, HR 88, RR 16, BP 105/69, and SPO2 96% on room air. - Head Head exam: Present: atraumatic, normocephalic - Eye Eye exam: Present: PERRL, conjuntiva pink, sclera anicteric Pupils: Present: PERRL - ENT ENT exam: Present: normal exam - Neck Neck exam general surgery: Present: normal inspection, supple, trachea midline. Absent: lymphadenopathy - Respiratory Respiratory exam: Present: CTAB. Absent: accessory muscle use, rales, rhonchi, wheezes - GI/Abdominal GI/Abdominal exam: Present: normal bowel sounds, soft, no peritoneal signs. Absent: distended, tenderness - Rectal Rectal exam: Present: deferred - Additional comments: exam deferred. - Extremities Exam Extremities exam: Present: warm, radial pulses palpable and symmetrical. Absent: calf tenderness, cyanotic, pedal edema - Back Exam Back exam: Present: normal inspection - Neurological Exam Neurological exam: Present: alert, CN II-XII intact, oriented X3, no focal deficits. Absent: pronater drift, facial droop, speech deficit - Psychiatric Psychiatric exam: Present: anxious - Skin Skin exam: Present: dry, intact Internal Med - H&P Results - Labs CBC & Chem 7: 01/06/19 16:20 01/06/19 16:20 Labs: Short CBC 01/06/19 Range/Units 16:20 WBC 5.0 (4.3-11.1) K/mcL Hgb 11.8 (11.5-15.4) g/dL Hct 34.0 L (35.3-44.9) % Plt Count 333 (140-400) K/mcL Neutrophils # 1.4 L (1.6-8.9) K/mcL BMP 01/06/19 16:20 Sodium 135 L Potassium 3.5 Chloride 99 Carbon Dioxide 27 BUN 8 Creatinine 0.50 L Glucose 147 H Calcium 7.6 L Liver Function 01/06/19 Range/Units 16:20 Total Bilirubin 0.5 (0.3-1.0) mg/dL Direct Bilirubin 0.2 (0.0-0.2) mg/dL AST 127 H (13-39) Units/L ALT 58 H (7-52) Units/L Alkaline Phosphatase 163 H (34-104) Units/L Albumin 3.1 L (3.5-5.7) g/dL Urine 01/06/19 Range/Units 16:56 Urine Color Yellow (Yellow) Urine Clarity Clear (Clear) Urine pH 6.0 (5.0-8.0) pH Units Ur Specific [place] 1.020 (1.010-1.025) Urine Protein Trace (Neg-Trace) mg/dL Urine Glucose (UA) Normal (Normal) mg/dL - EKG Data EKG shows normal: sinus rhythm - EKG Data Prior EKG available for review: no EKG comments: 01/07/19 02:07 EKG dated 01/07/19 shows sinus rhythm with sinus arrhythmia with short [place] interval, and nonspecific ST and T-wave abnormality. - Assessment and Plan (1) Alcoholism Current Visit: Yes Status: Acute Assessment and plan: Acute on chronic alcoholism. Patient reports she was doing well and then went on a drinking "gonsalez" after discussion of her end-stage cirrhosis and Hospice. Patient states she is very depressed and has many regrets. Patient is currently in end-stage cirrhosis and presents as malnourished. PICC line was placed previously for TPN. hx of gastric bypass with complications. CIWA scale and protocol ordered. If IVP Ativan from CIWA protocol ineffective, consider using the CIWA valium protocol. Nutrition consult for PO supplementation. D/t current nausea and vomiting, will order clear liquid diet and advance as tolerated. SW consult for referral to AA which patient is amenable to. Aspiration precautions. Elevate HOB. Seizure precautions. Falls/safety precautions and up with assist only. Patient is high risk for further morbidity and complications d/t current alcohol abuse and withdrawal requiring close monitoring, end-stage cirrhosis w/elevated LFTs, electrolye imbalances requiring electrolyte protocol, current malnutrition, current tobacco abuse, and current depression w/hx of prior suicide attempt. Observation. (2) Elevated LFTs Current Visit: Yes Status: Acute Assessment and plan: Acute on chronic elevation of LFTs. AST 127 and ALT 58 on admission. Will avoid hepatotoxic medications. Monitor pt. and f/u labs. (3) Nausea and vomiting Current Visit: Yes Status: Acute Assessment and plan: Acute nausea and vomiting. Zofran 4 mg IVP every 6 hours when necessary for nausea and vomiting. Phenergan 12.5 mg IVP every 4 hour when necessary for nausea and vomiting if Zofran is not affected. 40 mg IVP Protonix twice a day. GI cocktail. Clear liquid diet and will advance as tolerated. Qualifiers: Vomiting type: cyclical vomiting Vomiting Intractability: non-intractable Qualified Code(s): G43.A0 - Cyclical vomiting, not intractable (4) Hypocalcemia Current Visit: Yes Status: Acute Assessment and plan: Acute on chronic hypocalcemia w/calcium of 7.6 on admission. PO calcium carbonate ordered. If no improvement on f/u labs, will order calcium gluconate IVPB. Cardiac monitoring. (5) Hyponatremia Current Visit: Yes Status: Acute Assessment and plan: Acute on chronic hyponatremia w/sodium of 135 on admission. Patient received 1 L bolus of 0.9 in ED followed by 0.9 IV fluids at 50 mL's per hour. Cardiac monitoring. Monitor patient and follow-up labs. (6) Alcoholic cirrhosis of liver Current Visit: Yes Status: Chronic Assessment and plan: Hx of chronic alcoholic cirrhosis of the liver. Patient received recent news that she is end-stage cirrhosis. AST 127 and ALT 58 on admission. Will avoid hepatotoxic medications. Monitor pt. and f/u labs. Continue patient's Carafate. Qualifiers: Ascites presence: unspecified Qualified Code(s): K70.30 - Alcoholic cirrhosis of liver without ascites (7) Malnutrition Current Visit: Yes Status: Chronic Assessment and plan: Hx of malnutrition r/t previous gastric bypass surgery as well as f/u surgeries. Malnutrition exacerbated by pts. alcohol abuse. Nutrition consult ordered for PO supplementation. Strict I&O. Patient requests clear diet to start with advance as tolerated d/t nausea, vomiting, and GERD. Qualifiers: Malnutrition type: protein-calorie malnutrition Protein-calorie malnutrition severity: unspecified severity Qualified Code(s): E46 - Unspe cified protein-calorie malnutrition (8) COPD (chronic obstructive pulmonary disease) Current Visit: Yes Status: Chronic Assessment and plan: Hx of chronic COPD r/t tobacco abuse. Stable. Supplemental O2 with titration and SPO2 monitoring. Will add Nebs if warranted or pt. becomes symptomatic. Qualifiers: COPD type: unspecified COPD Qualified Code(s): J44.9 - Chronic obstructive pulmonary disease, unspecified (9) GERD (gastroesophageal reflux disease) Current Visit: Yes Status: Chronic Assessment and plan: Hx of chronic GERD. Patient has hx of previous gastric bypass and resultant malabsorption syndrome. Protonix 40 mg IVP every 12 hours. GI cocktail ordered. Qualifiers: Esophagitis presence: esophagitis presence not specified Qualified Code(s): K21.9 - Gastro-esophageal reflux disease without esophagitis (10) Tobacco abuse Current Visit: Yes Status: Chronic Assessment and plan: Hx of current tobacco abuse. Patient reports smoking 1/2 to 1 PPD d/t current anxiety and stressors. 21 mg nicotine patch ordered. (11) Anxiety and depression Current Visit: Yes Status: Chronic Assessment and plan: Hx of chronic anxiety and depression. Hx of prior suicide attempt. Patient denies any current SI or HI on examination. Patient does report hopelessness and regret regarding her alcoholism. Psychiatric consult ordered and discussed with Dr. James lomeli/jeane pts. current depression. She will see pt. in the a.m. and I appreciate the consult and recommendations as always. Continue patient's Zypr exa. (12) Hx of suicide attempt Current Visit: Yes Status: Resolved Assessment and plan: Hx of prior suicide attempt. Patient denies any current SI or HI on examination. Patient does report hopelessness and regret regarding her alcoholism. Psychiatric consult ordered and discussed with Dr. James lomeli/jeane pts. current depression. She will see pt. in the a.m. and I appreciate the consult and recommendations as always. (13) DVT prophylaxis Current Visit: Yes Status: Acute Assessment and plan: SQ heparin 5,000 units Q8HR for DVT prophylaxis. Monitor pt. for signs of bleeding. - Time Spent With Patient Total time spent is greater than 50% in coordination of care (as documented) at patient's floor/unit and/or counseling patient: Greater than 35 minutes
[2019-01-07] MEDS: *HR* LORazepam 2 MG/ML VIAL IVP PRN ×2 (01:27→16:05)
[2019-01-07] MEDS: Nicotine 21 MG PATCH.TD24 TD SCH (01:31)
[2019-01-07 04:26] LABS: Hematocrit 30.8 % (35.3-44.9); Hemoglobin 10.5 g/dL (11.5-15.4); Mean Corpuscular HGB Conc 34.1 g/dL (31.6-35.5); Mean Corpuscular Hemoglobin 27.1 pg (28.0-33.3); Mean Corpuscular Volume 79.4 fL (83.0-100.0); Mean Platelet Volume 8.7 fL (9.4-12.4); Platelet Count 271 K/mcL (140-400); Red Blood Count 3.88 M/mcL (3.82-4.97); Red Cell Distribution Width 16.5 % (11.5-14.5)
[2019-01-07 04:41] LABS: BUN/Creatinine Ratio 14 (6-26); Blood Urea Nitrogen 6 mg/dL (6-20); Calcium 7.2 mg/dL (8.6-10.3); Carbon Dioxide 24 mEq/L (23-29); Chloride 105 mEq/L (98-107); Chol/HDL Ratio 2.3 (0-4.9); Cholesterol 86 mg/dL (< 200); Glucose 93 mg/dL (70-105); HDL Cholesterol 38 mg/dL (40-59); LDL Cholesterol,Calculated 26 mg/dL (0-99); Magnesium 1.6 mg/dL (1.6-2.6); Osmolality,Calculated 285 (280-300); Phosphorous 2.9 mg/dL (2.7-4.5); Potassium 3.3 mEq/L (3.5-5.1); Sodium 139 mEq/L (136-145); Triglycerides 108 mg/dL (< 150); eGFR For African Americans > 60 (> 60); eGFR For Non-African Americans > 60 (> 60)
[2019-01-07] MEDS: Pantoprazole 40 MG VIAL IVP SCH (05:01)
[2019-01-07] MEDS: *HR* Heparin 5,000 UNIT/ML VIAL SQ SCH ×2 (05:17→17:26)
--- NOTE | 2019-01-07 08:24 | Consult Note ---
Date of Encounter: 01/07/19 Time of Encounter: 08:24 Assessment & Recommendation (1) Grief reaction Current visit: Yes Status: Acute Assessment & Recommendation: Patient presented to the ED with chief complaint of alcohol withdrawal after a multiple day "gonsalez", which started after she realized that she qualifies for hospice care, and her overall prognosis is very poor. She reports feeling very depressed and scared, and expresses that she is hurt that her family is not currently with her here in the hospital. She reports very poor quality of life, but denies any active suicidal ideation. She is agreeable to palliative care and hospice discussion. Review of [facility] records shows patient to be established with Dr. Adelaide Hutchison at the [facility], who has been prescribing her medications. At this time no medication changes are recommended; however, patient should follow up soon after discharge with her psychiatrist to discuss potential medication adjustments. Throughout interview, patient remained cooperative, and appears to be having an appropriate grief reaction. She was intermittently tearful, particularly when discussing family difficulties. Patient does not meet criteria for pink slip or inpatient psychiatry admission. Recommendations: - Outpatient followup with psychiatrist for medication changes soon after hospital discharge. - Consider palliative care consult to assist with hospice enrollment. - Management for potential alcohol withdrawal per primary team. (2) Alcohol use disorder Current visit: Yes Status: Acute Assessment & Recommendation: Long-term history of heavy alcohol use, with last drink ~1 day ago. - Continue alcohol withdrawal management per primary team and [facility] protocol. (3) Bipolar disorder Current visit: Yes Status: Chronic Assessment & Recommendation: History of bipolar disorder. Home medications include zyprexa 20mg daily, adderall 20mg BID, and viibryd 40mg daily. Recommend close followup with outpatient psychiatric provider for medication management. Qualifiers: Active/Remission status: remission status unspecified Qualified Code(s): F31.9 - Bipolar disorder, unspecified History of Present Illness Requesting Physician: Oj Reyes Reason for consult: Depression, candidate for hospice care secondary to end- stage liver failure History of present illness: Ms. Abdi is a 43 year old female with a history of arthritis, alcoholic cirrhosis, COPD, GERD, osteoporosis, pulmonary embolism, anxiety, ADHD, bipolar disorder, anxiety, depression, and prior suicide attempt, who presented to the ED with chief complaint of alcohol withdrawal. Patient had previously been sober for several weeks; however, she went on a multiple-day "gonsalez", which prompted family members to bring her to the ED. She reported that she was recently told by her supervisor tumblers that she has reached the end-stage of her liver d isease, and is now appropriate for hospice care; patient subsequently became increasingly depressed, which resulted in her decision to consume alcohol. On evaluation this morning, patient endorses continued depression, as well as fear of dying. She denies any suicidal ideation this morning or in the days preceeding her ED presentation. She reports many concerns regarding her overall quality of life, and voices that she is hurt that her daughter and other family members are not with her at the bedside today as she is going through this. She reports that she has had increasing difficulty with ADLs, and has required increasing amount of assistance from her family; she expresses concern that she is a burden to them, but states that she is doing all she can to be there for them while she is going through this process. She states that she had been awaiting a call back from her supervisor tumblers to finish the process of setting up hospice care, but voices that she would be willing to discuss her needs with the palliative care team as well. CC: Oj Reyes Past Med Surg Social Fam HX - Past Medical History Medical history: arthritis, cirrhosis, COPD, GERD, liver disease, osteoporosis, pulmonary embolus (Several years ago), other (osteoporosis,) - Past Psychiatric History Psychiatric history: Reports: anxiety, ADHD, bipolar, depression, prior suicide attempt, previous psychiatric hospitalization Past psychiatric history details: Previous suicide attempt via overdose; has been admitted to in 2016 and 2017. Family psychiatric history: Unknown Family History of Suicide: Unknown - Past Surgical History Surgical History: appendectomy, colectomy, herniorrhaphy, hysterectomy, other (cardiac ablation, multiple bowel surgeries), bariatric surgery - Social History Smoking Status: Current some day smoker Smokeless Tobacco Status: No Alcohol use: heavy, recent Drug use: none - Family History Father Adopted: No Race: Family Member Ethnicity: Non- Living Status: Still Living Hx Family Cardiac Disorders: No Hx Family Respiratory Disorders: No Hx Family Cancer: No Hx Family GI Disorders: No Hx Family Endocrine Disorder: No Hx Family Neuromuscular Disorders: No Hx Family Neurologic Disorders: No Hx Family HEENT Disorders: No Hx Family Autoimmune Disorders: No Hx Family Medical Disorders: No Grandfather Race: Family Member Ethnicity: Non- Living Status: Hx Family Cardiac Disorders: Yes ([place]) Maternal Grandmother Race: Family Member Ethnicity: Non- Living Status: Still Living Hx Family Cancer: Yes (Lung) Sister Race: Family Member Ethnicity: Non- Living Status: Still Living Hx Family Cancer: Yes (Ovarian) Mother Adopted: No Race: Family Member Ethnicity: Non- Living Status: Still Living Hx Family Cardiac Disorders: Yes (HTN) Hx Family Respiratory Disorders: No Hx Family Cancer: No Hx Family GI Disorders: No Hx Family Endocrine Disorder: No Hx Family Neuromuscular Disorders: No Hx Family Neurologic Disorders: No Hx Family HEENT Disorders: No Hx Family Autoimmune Disorders: No Hx Family Psychosocial Disorders: Yes (Morbid obesity) Medications & Allergies Ergocalciferol (VITAMIN D2) [Vitamin D2] 1,000 unit PO 2XW 12/18/17 [History] Lipase/Protease/Amylase [Creon Dr 36,000 Units Capsule] 36,000 units PO TIDAC 12/18/17 [History] OLANZapine [Zyprexa] 20 mg PO HS 12/18/17 [History] Sucralfate [Carafate] 1 gm PO QID 12/18/17 [History] Vilazodone HCl [Viibryd] 40 mg PO DAILY 12/18/17 [History] Buprenorphine HCl 8 mg SL BID 03/22/18 [History] Dextroamphetamine/Amphetamine [Adderall 20 mg Tablet] 20 mg PO BID 03/22/18 [History] Esomeprazole Sodium [Nexium I.v.] 40 mg IV BID 03/22/18 [History] raNITIdine HCl [Zantac] 300 mg PO BID 03/22/18 [History] Allergy/AdvReac Type Severity Reaction Status Date / Time cephalexin Allergy Rash Verified 01/07/19 08:44 clindamycin Allergy Rash Verified 01/07/19 08:44 nalbuphine [From Nubain] AdvReac "didn't Verified 01/07/19 08:44 [address] the way it made me feel" Review of Systems Constitutional: Reports: weakness, weight change Cardiovascular: Denies: chest pain, palpitations, dyspnea on exertion Respiratory: Denies: cough, dyspnea, wheezes Gastrointestinal: Denies: abdominal pain, nausea, vomiting, diarrhea, constipation Genitourinary female: Denies: urgency, dysuria, frequency, abnormal menses, dyspareunia Musculoskeletal: Denies: joint swelling, joint pain Neurological: Denies: headache, weakness, numbness, confusion, memory loss Psychiatric: Reports: depression, hopelessness. Denies: suicidal ideation, homicidal ideation, auditory hallucinations, visual hallucinations Endocrine: Denies: fatigue, heat or cold intolerance Hematologic/Lymphatic: Denies: easy bruising, lymphadenopathy Psychiatry Exam - Constitutional Vitals: Temp Pulse Resp BP Pulse Ox 99.3 F 89 19 125/77 97 01/07/19 06:57 01/07/19 06:57 01/07/19 06:57 01/07/19 06:57 01/07/19 06:57 General appearance: age & developmentally appropriate, malnourished, thin - Musculoskeletal Strength & Tone: normal for patient (grossly normal on observation) - Psychiatric Patient Orientation: Yes Person, Yes Time, Yes Place Level of alertness: Alert, Follows commands Behavior: calm, cooperative, anxious, tearful Psychomotor activity: Normal Eye Contact: Diverts Contact Mood Description: Depressed, Anxious Affect description: congruent with mood, tearful Speech Volume: Normal, Excessive Variation Speech pattern: normal rhythm, normal tone, fluent, spontaneous, appropriate, clear, coherent Language & Vocabulary: consistent with education Thought Process: Logical, Linear, Goal Oriented Thought Content: Yes Intact, No Suicidal ideation, No Homicidal ideation, No Overt delusions Perceptual Disturbances: No Reacting to internal stimuli, No Auditory hallucinations, No Visual hallucinations Attention Span Ability: Capable of Focused Attention Memory Description: Grossly Intact Patient Reliability: Questionable Historian Fund of knowledge: Yes abstraction ability, Yes average, Yes aware of current events Intelligence Estimate: Average Judgment: Fair Insight: Partial Results - Drug Levels and Toxicology Drug Levels and Toxicology: Drug Levels and Toxicity 01/06/19 01/06/19 16:20 16:56 Urine Opiates Screen Negative Acetaminophen < 10 L Ur Barbiturates Screen Negative Ur Phencyclidine Scrn Negative Ur Amphetamines Screen Negative U Benzodiazepines Scrn Negative Urine Cocaine Screen Negative U Marijuana (THC) Screen Negative Ethyl Alcohol 238 H - Labs Labs: Laboratory Last Values WBC 5.0 K/mcL (4.3-11.1) 01/07/19 04:00 RBC 3.88 M/mcL (3.82-4.97) 01/07/19 04:00 Hgb 10.5 g/dL (11.5-15.4) L 01/07/19 04:00 Hct 30.8 % (35.3-44.9) L 01/07/19 04:00 MCV 79.4 fL (83.0-100.0) L 01/07/19 04:00 MCH 27.1 pg (28.0-33.3) L 01/07/19 04:00 MCHC 34.1 g/dL (31.6-35.5) 01/07/19 04:00 RDW 16.5 % (11.5-14.5) H 01/07/19 04:00 Plt Count 271 K/mcL (140-400) 01/07/19 04:00 MPV 8.7 fL (9.4-12.4) L 01/07/19 04:00 Seg Neutrophils % 28.0 % 01/06/19 16:20 Lymphocytes % 70.0 % 01/06/19 16:20 Monocytes % 2.0 % 01/06/19 16:20 Neutrophils # 1.4 K/mcL (1.6-8.9) L 01/06/19 16:20 Lymphocytes # 3.5 K/mcL (0.6-4.6) 01/06/19 16:20 Monocytes # 0.1 K/mcL (0.0-1.3) 01/06/19 16:20 Platelet Estimate Normal (Normal) 01/06/19 16:20 PT 11.9 Seconds (9.4-12.1) 01/06/19 16:20 INR 1.0 01/06/19 16:20 APTT 37.3 Seconds (26.0-36.0) H 01/06/19 16:20 Sodium 139 mEq/L (136-145) 01/07/19 04:00 Potassium 3.3 mEq/L (3.5-5.1) L 01/07/19 04:00 Chloride 105 mEq/L (98-107) 01/07/19 04:00 Carbon Dioxide 24 mEq/L (23-29) 01/07/19 04:00 BUN 6 mg/dL (6-20) 01/07/19 04:00 Creatinine 0.43 mg/dL (0.60-1.20) L 01/07/19 04:00 Est GFR ( Amer) > 60 (> 60) 01/07/19 04:00 Est GFR (Non-Af Amer) > 60 (> 60) 01/07/19 04:00 BUN/Creatinine Ratio 14 (6-26) 01/07/19 04:00 Glucose 93 mg/dL (70-105) 01/07/19 04:00 Calculated Osmolality 285 (280-300) 01/07/19 04:00 Calcium 7.2 mg/dL (8.6-10.3) L 01/07/19 04:00 Phosphorus 2.9 mg/dL (2.7-4.5) 01/07/19 04:00 Magnesium 1.6 mg/dL (1.6-2.6) 01/07/19 04:00 Total Bilirubin 0.5 mg/dL (0.3-1.0) 01/06/19 16:20 Direct Bilirubin 0.2 mg/dL (0.0-0.2) 01/06/19 16:20 Indirect Bilirubin 0.3 mg/dL (0.0-1.2) 01/06/19 16:20 AST 127 Units/L (13-39) H 01/06/19 16:20 ALT 58 Units/L (7-52) H 01/06/19 16:20 Alkaline Phosphatase 163 Units/L (34-104) H 01/06/19 16:20 Serum Total Protein 5.6 g/dL (6.4-8.9) L 01/06/19 16:20 Albumin 3.1 g/dL (3.5-5.7) L 01/06/19 16:20 Globulin 2.5 g/dL (2.4-3.5) 01/06/19 16:20 Albumin/Globulin Ratio 1.2 (1.1-2.2) 01/06/19 16:20 Triglycerides 108 mg/dL (< 150) 01/07/19 04:00 Cholesterol 86 mg/dL (< 200) 01/07/19 04:00 LDL Cholesterol, Calc 26 mg/dL (0-99) 01/07/19 04:00 VLDL Cholesterol, Calc 22 mg/dL (< 31) 01/07/19 04:00 HDL Cholesterol 38 mg/dL (40-59) L 01/07/19 04:00 Cholesterol/HDL Ratio 2.3 (0-4.9) 01/07/19 04:00 Lipase 34 Units/L (11-82) 01/06/19 16:20 Vitamin B12 402 pg/mL (250-1100) 01/07/19 04:00 Urine Color Yellow (Yellow) 01/06/19 16:56 Urine Clarity Clear (Clear) 01/06/19 16:56 Urine pH 6.0 pH Units (5.0-8.0) 01/06/19 16:56 Ur Specific [place] 1.020 (1.010-1.025) 01/06/19 16:56 Urine Protein Trace mg/dL (Neg-Trace) 01/06/19 16:56 Urine Glucose (UA) Normal mg/dL (Normal) 01/06/19 16:56 Urine Ketones Trace mg/dL (Negative) H 01/06/19 16:56 Urine Blood Negative (Negative) 01/06/19 16:56 Urine Nitrite Negative (Negative) 01/06/19 16:56 Urine Bilirubin Small (Negative) H 01/06/19 16:56 Urine Urobilinogen 2.0 mg/dL (Normal) H 01/06/19 16:56 Ur Leukocyte Esterase Trace (Negative) H 01/06/19 16:56 Urine Microscopic RBC 0-3 per hpf (0-3) 01/06/19 16:56 Urine Microscopic WBC 0-3 per hpf (0-3) 01/06/19 16:56 Ur Squamous Epith Cells Few per lpf (None-Few) 01/06/19 16:56 Urine Bacteria Few per hpf (None-Few) 01/06/19 16:56 Hyaline Casts None Seen per lpf (None-Few) 01/06/19 16:56 Urine Test Negative (Negative) 01/06/19 16:56 Salicylates < 2.5 mg/dL (15.0-30.0) L 01/06/19 16:20 Urine Opiates Screen Negative ng/mL (Moezyz=589) 01/06/19 16:56 Ur Buprenorphine Scrn Positive ng/mL (Cutoff=5) H 01/06/19 16:56 Acetaminophen < 10 mcg/mL (10-20) L 01/06/19 16:20 Ur Barbiturates Screen Negative ng/mL (Egebfs=199) 01/06/19 16:56 Ur Phencyclidine Scrn Negative ng/mL (Cutoff=25) 01/06/19 16:56 Ur Amphetamines Screen Negative ng/mL (Ohrhik=0659) 01/06/19 16:56 U Benzodiazepines Scrn Negative ng/mL (Oyurvx=180) 01/06/19 16:56 Urine Cocaine Screen Negative ng/mL (Cutoff= 300) 01/06/19 16:56 U Marijuana (THC) Screen Negative ng/mL (Cutoff = 50) 01/06/19 16:56 Ur Drug Screen Interp See Below 01/06/19 16:56 Ethyl Alcohol 238 mg/dL (Less than 10) H 01/06/19 16:20 Consult Discharge Plan - Plan Referrals: NONE,PCP [Primary Care Provider] - - Attending Attestation I examined this patient and my medical decision-making was reviewed with the Resident Physician. I agree with the documented findings, disposition and treatment plan as described except to the extent set forth below. Patient denies any suicidal thoughts, ideations, or plans. She wants to live the best life possible in the time she has remaining. She says it has been difficult to accept this prognosis but she is doing her best. Recommend linkage with palliative care. She is linked with [facility] outpatient counseling where she can follow up. She does not meet criteria for pink slip or inpatient psychiatric hospitalization in [place]. Psychiatry will sign off.
[2019-01-07] MEDS: *HR* Buprenorphine HCl 8 MG TAB.SUBL SL SCH ×2 (08:33→20:20)
--- NOTE | 2019-01-07 10:47 | Gastroenterology Consult Note ---
<Ashly Ochoa - Last Filed: 01/07/19 10:43> Date of Encounter: 01/07/19 Time of Encounter: 10:15 - Assessment and plan (1) Alcoholic liver damage, unspecified Current Visit: Yes Status: Acute Assessment and plan: 43 year old female who presents with alcoholic withdrawal. She has history of alcohol abuse, but most recently started drinking large amounts of alcohol again. She has acute elevation of LFTs. She has a history of fatty liver but not cirrhosis. Monitor LFTs, correct electrolytes, fluids and MVI. Psych has been consulted for depression. (2) Malnutrition Current Visit: Yes Status: Chronic Assessment and plan: Pt has been refusing home TPN and requesting hospice care. Qualifiers: Malnutrition type: protein-calorie malnutrition Protein-calorie malnutritio n severity: unspecified severity Qualified Code(s): E46 - Unspecified protein- calorie malnutrition (3) Alcoholism Current Visit: Yes Status: Acute (4) Hepatic steatosis Current Visit: No Status: Chronic (5) Elevated LFTs Current Visit: Yes Status: Acute - Time Spent With Patient Total time spent is greater than 50% in coordination of care (as documented) at patient's floor/unit and/or counseling patient: GI History of Present Illness - Data of Consult Patient: known to practice within the last 3 years Consult date: 01/07/19 Requesting Physician: Marina Welch MD - Consult Narrative Reason for consult: elevated lfts History of present illness: Ms. Abdi is a 42 year old female with PMHx of WPW, gastric ulcers, bipolar disorder, opiate abuse, alcohol abuse, pancreatitis, gastric bypass, PE, anxiety, ADHD, bipolar depression, prior suicide attempt. She is know to Dr Manley who follows her for supplemental TPN due to severe protein caloric malnutrition. She has also been referred to [facility] for chronic gastric ulcer. She presents to the ER with alcohol withdrawal. Recent labs from home health showed elevated LFTs, and hypokalemia. She had been refusing her TPN and drinking heavily. She had reported to the home health nurses that she was tired of having chronic pain and needing TPN and she just wanted to go on hospice so that she could have some relief from the pain. She appears very depressed but she denies any suicidal ideation. She denies any diarrhea, melena or rectal bleeding. She does complain of abdominal pain, nausea and vomiting worse after eating. She denies any fever, shortness of breath or chest pain. Procedures: EGD 12/20/18 normal esophagus moderate amount of food in the gastric pouch. 4 cm cratered uler at the anastamosis site, s/p gastric nypass EGD 06/11 normal esophagus, non-bleeding gastroenteric anastamosis ulcer03/12/2018 Dr. Manley: Non-bleeding gastric anastomotic ulcer 3cm in largest dimension. EGD 12/19/2017 Dr. Manley: Non-bleeding deep cratered anastomotic ulcers with no stigmata of bleeding, involving about 60% of circumference of anastomosis. EGD 10/04/2017 Dr. Manley: Non-bleeding gastric ulcer at anastomosis, moderate chronic inflammation.EGD 05/14/2016 Dr. Becker: Plastic water bottle cap in esophagus. EGD 10/2014 superficial ulcer at anastomosis, stomach with pseudo-diverticuli. EGD 11/2012 gastric ulcer, anastomosis ulcer,biopsy negative EGD 08/2012 anastomosis ulcer Colonoscopy 07/2012 colon redundant/tortuous EGD 02/2012 esophagitis at GE junction NSAID: None Anticoagulation: subq heparin Past Med Surg Social Fam HX - Past Medical History Medical history: arthritis, cirrhosis, COPD, GERD, liver disease, osteoporosis, pulmonary embolus (Several years ago), other (osteoporosis,) Additional medical history: alcoholic cirrhosis, anemia, malabsorption, pancreatitis, post-op blind loop syndrome, lymphadema, ileus, vit D def, FTT, WPW Psychiatric history: anxiety, ADHD, bipolar, depression, prior suicide attempt, previous psychiatric hospitalization - Past Surgical History Surgical History: appendectomy, colectomy, herniorrhaphy, hysterectomy, other (cardiac ablation, multiple bowel surgeries), bariatric surgery Additional surgical history: gastric bypass, tubal ligation, cardiac ablation. multiple bowel surgeries - Social History Smoking Status: Current some day smoker Packs per day: 1/2 to 1 PPD Smokeless Tobacco Status: No Alcohol use: heavy, recent Drug use: none - Family History Father Adopted: No Race: Family Member Ethnicity: Non- Living Status: Still Living Hx Family Cardiac Disorders: No Hx Family Respiratory Disorders: No Hx Family Cancer: No Hx Family GI Disorders: No Hx Family Endocrine Disorder: No Hx Family Neuromuscular Disorders: No Hx Family Neurologic Disorders: No Hx Family HEENT Disorders: No Hx Family Autoimmune Disorders: No Hx Family Medical Disorders: No Grandfather Race: Family Member Ethnicity: Non- Living Status: Hx Family Cardiac Disorders: Yes ([place]) Maternal Grandmother Race: Family Member Ethnicity: Non- Living Status: Still Living Hx Family Cancer: Yes (Lung) Sister Race: Family Member Ethnicity: Non- Living Status: Still Living Hx Family Cancer: Yes (Ovarian) Mother Adopted: No Race: Family Member Ethnicity: Non- Living Status: Still Living Hx Family Cardiac Disorders: Yes (HTN) Hx Family Respiratory Disorders: No Hx Family Cancer: No Hx Family GI Disorders: No Hx Family Endocrine Disorder: No Hx Family Neuromuscular Disorders: No Hx Family Neurologic Disorders: No Hx Family HEENT Disorders: No Hx Family Autoimmune Disorders: No Hx Family Psychosocial Disorders: Yes (Morbid obesity) Review of Systems: GI: as per KLAMATH GENERAL: denies fever, has some chills EYES: denies yellow discoloration ENT: denies pain with swallowing or difficulty swallowing CARDIO: denies chest pain, palpitations RESP: No Shortness of breath with exertion : denies change in color of urine NEURO: weakness HEME: Denies any bruising MS: chronic back pain. DERM: denies rash or itching PSYCH: see HPI - Constitutional Vitals: Temp Pulse Resp BP Pulse Ox 99.3 F 89 19 125/77 97 01/07/19 06:57 01/07/19 06:57 01/07/19 06:57 01/07/19 06:57 01/07/19 06:57 Exam: CONSTITUTIONAL:alert, flat affect, no acute dist ress.HEAD:normocephalic.EYES:no jaundice.NECK:no obvious swelling.HEART:regular rate and rhythm, no murmurs.LUNGS:bilateral poor air entry.ABDOMEN:distended, multiple scars well healed, tender, no masses palpable, no organomegaly.RECTAL EXAM:Deferred.EXTREMITIES:edema noted to bilateral hands and bilateral lower extremities.SKIN:pallor noted, no stigmata of chronic liver disease.NEUROLOGIC:no obvious focal defect. Results - Labs CBC & Chem 7: 01/07/19 04:00 01/07/19 04:00 Labs: Last Result 01/07/19 01/07/19 04:00 04:00 Calcium 7.2 L Triglycerides 108 Vitamin B12 402 Entire Visit 01/07/19 04:00 Hgb 10.5 L Hct 30.8 L - ABG ABG results: PT/INR, D-dimer PT 11.9 Seconds (9.4-12.1) 01/06/19 16:20 Consult Discharge Plan - Plan Referrals: NONE,PCP [Primary Care Provider] - <Efraín Manleyed - Last Filed: 01/07/19 17:46> Date of Encounter: 01/07/19 Time of Encounter: 13:00 - Time Spent With Patient Total time spent is greater than 50% in coordination of care (as documented) at patient's floor/unit and/or counseling patient: GI History of Present Illness - Data of Consult Requesting Physician: Marina Welch MD - Consult Narrative History of present illness: Ms. Abdi is a 43 year old female - Constitutional Vitals: Temp Pulse Resp BP Pulse Ox 97.9 F 75 19 113/83 96 01/07/19 16:35 01/07/19 16:35 01/07/19 16:35 01/07/19 16:35 01/07/19 16:35 Results - Labs CBC & Chem 7: 01/07/19 04:00 01/07/19 04:00 Labs: Last Result 01/07/19 04:00 Calcium 7.2 L Triglycerides 108 Entire Visit 01/07/19 04:00 Total Bilirubin 0.7 AST 101 H ALT 47 - ABG ABG results: PT/INR, D-dimer PT 11.9 Seconds (9.4-12.1) 01/06/19 16:20 - Attending Attestation I have personally performed a face to face evaluation on this patient. I have reviewed and agree with the care plan. History and Exam by me shows: Patient seen. per The patient currently abdominal pain is controlled. On Exam: patient alert and awake not in acute distress. A: Patient with a history of malnutrition and history of anastomotic ulcer which is refractory to medical treatment along with a history of gastric bypass. Has been on TPN and IV PPI for nearly a year. Has been to [facility] and also to another doctor in [place] but because of her noncompliance patient is not a candidate for any surgical revision of her gastric bypass/refractory anastomotic ulcer. Lately patient has been feeling depressed although she denies any suicidal ideation. Had started drinking again. Want to be on hospice. Recommendation: Patient and family need to be involved in the decision regarding her long-term care including any hospice decision. Because of her noncompliance including smoking and no drinking she would not be a candidate for any surgical intervention for treatment of her refractory Anastomotic large ulcer
--- NOTE | 2019-01-07 11:13 | Palliative - Consult Note ---
Date of Encounter: 01/07/19 Time of Encounter: 13:54 - Assessment and Plan (1) Palliative care by specialist Current Visit: Yes Status: Acute Assessment and plan: Pt currently has capacity to make complex medical decisions. Pt reports her daughter is listed as her HCPOA. No advanced directive paperwork found on file in medical record. Pt is not , therefore her daughter would be LNOK and thus surrogate decision maker. (2) Goals of care, counseling/discussion Current Visit: Yes Status: Acute Assessment and plan: - We discussed her clinical condition, prognosis, and treatment options in the context of her values, preferences and goals. Pt expressed she has had difficulty over the past year with her multiple medical issues and continual decline in her quality of life. - Pt expresses her main goal is to be home with hospice care and focus on her comfort and quality of life for the time she has left. - We offered information pertaining to hospice/symptom management. - Palliative Care discussed case with [facility], disposition is complex given recent heavy alcohol use and pt's lack of support at home. [facility] is willing to accept patient if she discharges to a controlled environment such as a nursing facility, they are unwilling to accept her otherwise given concern for her safety and recent hx of high risk behaviors. - We discussed these concerns with pt today. She expressed her main goal is to be home and she voices she is not interested in discussing discharge to facility . She is interested in inquiring further if a different hospice agency would be willing to accept her at home. - Palliative Care will reach out to [facility] per pt's request. [facility] to meet with patient today at bedside to discuss discharge home. - Discussed change in code status as pt has voiced wish of focusing on her comfort. Pt is in agreement to change her code status from Full Code to DNRCC, paperwork signed and completed with patient today. Copies of DNR paperwork provided to pt and placed in file to be scanned into medical record. (3) Alcoholic cirrhosis of liver Current Visit: Yes Status: Chronic Assessment and plan: hx of chronic alcoholic cirrhosis of the liver. Continued management per primary team. GI now following. Qualifiers: Ascites presence: unspecified Qualified Code(s): K70.30 - Alcoholic cirrhosis of liver without ascites (4) Malnutrition Current Visit: Yes Status: Chronic Assessment and plan: hx of malnutrition r/t previous gastric bypass surgery. Malnutrition is worsened by pt's continued alcohol abuse. Nutrition consult ordered per primary team. Pt voices she does not wish to continue TPN any longer. Qualifiers: Malnutrition type: protein-calorie malnutrition Protein-calorie malnutrition severity: unspecified severity Qualified Code(s): E46 - Unspecified protein-calorie malnutrition (5) Anxiety and depression Current Visit: Yes Status: Chronic Assessment and plan: hx of chronic anxiety and depression. Hx of prior suicide attempt. Psychiatry now following. Pt continues on home medications. She currently denies any suicidal thoughts. (6) Difficulty coping Current Visit: Yes Status: Acute Assessment and plan: r/t current clinical condition and long history of complex medical issues. Pt expressed frustration regarding her lack of support from her daughter. She expressed she has "no one" to lean on during these difficult times. Palliative Care offered active listening and support. (7) Hx of suicide attempt Current Visit: Yes Status: Resolved Assessment and plan: Pt denies suicidal ideation at this time. Psychiatry now following. (8) Hx of drug abuse Current Visit: Yes Status: Acute Assessment and plan: Pt currently on Buprenorphine 8mg SL BID prescribed by Dr. Samantha Ramirez in [place], [place]. [facility] report reviewed, consistent with pt report. (9) Bipolar disorder Current Visit: Yes Status: Acute Assessment and plan: Psychiatry now following. Recommending close follow-up OP and continue current home medications. Qualifiers: Active/Remission status: remission status unspecified Qualified Code(s): F31.9 - Bipolar disorder, unspecified (10) COPD (chronic obstructive pulmonary disease) Current Visit: Yes Status: Chronic Assessment and plan: hx of chronic COPD r/t tobacco use. Qualifiers: COPD type: unspecified COPD Qualified Code(s): J44.9 - Chronic obstructive pulmonary disease, unspecified (11) Alcohol use disorder Current Visit: Yes Status: Acute Assessment and plan: hx of long-term heavy alcohol use. Last drink yesterday, 01/06/19. Alcohol withdrawal management per primary team and [facility] protocol. Palliative-CN HPI - Data of Consult Requesting Physician: Marina Welch MD Primary Care Provider: PCP NONE - Consult Narrative Palliative Care/Comfort Measures: Palliative care History of present illness: Ms. Abdi is a 43 year old female with hx of gastric ulcers, bipolar disorder, opiate abuse, alcohol abuse, gastric bypass many years ago with multiple abdominal surgeries following, PE, anxiety, bipolar depression and prior suicide attempt. She follows with Dr. Manley who is currently managing her supplemental TPN d/t severe protein caloric malnutrition. She presented to the ED with alcohol w ithdrawal. She endorses she has been refusing her TPN intermittently and drinking heavily x 3 days. She reported to Home Health ([facility]) that she "was tired" of her chronic medical issues and TPN and expressed interest in enrolling in hospice care. Palliative Care is consulted to assist with goals of care. Pt is sitting up in bed, NAD, appears comfortable during visit. Sister Evelyn present at bedside briefly during visit. Pt expressed she has had difficulty over the past year with her multiple medical issues and continual decline in her quality of life. She denies any thoughts of harming herself at this time. She expressed she had remained sober for several months and just recently began drinking heavily x 3 days. She attributes her recent drinking to "being afraid" of her continual decline in her medical condition and poor quality of life. She reports she has been intermittently refusing her TPN. Pt expressed her main goal is to be home with hospice care and focus on comfort. We offered information pertaining to hospice/symptom management. Palliative Car e discussed case with [facility], disposition is complex given recent heavy alcohol use and pt's lack of support at home. [facility] is willing to accept patient if she discharges to a controlled environment such as a nursing facility, they are unwilling to accept her otherwise given concern for her safety and hx of high risk behaviors. Pt expressed her main goal is to be home and she is not interested in discussing possible discharge to facility. She is interested in inquiring further if a different hospice agency would be willing to accept her. Palliative Medicine will reach out to [facility] per pt's request. Regarding her symptoms, pt reports long history of chronic abdominal pain. She is currently on Suboxone therapy per Dr. Samantha Ramirez in [place], [place]. She reports chronic loose stools as well as chronic nausea and vomiting for several years. She has tried multiple medications for her N/V with little relief. She continues to report decline in her energy and nutritional status. She reports hx of bipolar disorder, denies suicidal ideation at this time. She denies any additional symptoms or needs at this time. Discussed change in code status as pt has voiced wish of focusing on comfort. Pt is in agreement to change her code status to DNRCC, paperwork signed and completed with patient today. Case discussed with [facility], liaison to meet with patient this evening to discuss discharge home. CC: Marina Welch MD - Time Spent with Patient Time: Total time spent is greater than 50% in coordination of care (as documented) at patient's floor/unit and/or counseling patient: 110 minutes. Past Med Surg Social Fam HX - Past Medical History Medical history: arthritis, cirrhosis, COPD, GERD, liver disease, osteoporosis, pulmonary embolus (Several years ago), other (osteoporosis,) Additional medical history: alcoholic cirrhosis, anemia, malabsorption, pancreatitis, post-op blind loop syndrome, lymphadema, ileus, vit D def, FTT, WPW Psychiatric history: anxiety, ADHD, bipolar, depression, prior suicide attempt, previous psychiatric hospitalization - Past Surgical History Surgical History: appendectomy, colectomy, herniorrhaphy, hysterectomy, other (cardiac ablation, multiple bowel surgeries), bariatric surgery Additional surgical history: gastric bypass, tubal ligation, cardiac ablation. multiple bowel surgeries - Social History Smoking Status: Current some day smoker Packs per day: 1/2 to 1 PPD Smokeless Tobacco Status: No Alcohol use: heavy, recent Drug use: none - Family History Father Adopted: No Race: Family Member Ethnicity: Non- Living Status: Still Living Hx Family Cardiac Disorders: No Hx Family Respiratory Disorders: No Hx Family Cancer: No Hx Family GI Disorders: No Hx Family Endocrine Disorder: No Hx Family Neuromuscular Disorders: No Hx Family Neurologic Disorders: No Hx Family HEENT Disorders: No Hx Family Autoimmune Disorders: No Hx Family Medical Disorders: No Grandfather Race: Family Member Ethnicity: Non- Living Status: Hx Family Cardiac Disorders: Yes ([place]) Maternal Grandmother Race: Family Member Ethnicity: Non- Living Status: Still Living Hx Family Cancer: Yes (Lung) Sister Race: Family Member Ethnicity: Non- Living Status: Still Living Hx Family Cancer: Yes (Ovarian) Mother Adopted: No Race: Family Member Ethnicity: Non- Living Status: Still Living Hx Family Cardiac Disorders: Yes (HTN) Hx Family Respiratory Disorders: No Hx Family Cancer: No Hx Family GI Disorders: No Hx Family Endocrine Disorder: No Hx Family Neuromuscular Disorders: No Hx Family Neurologic Disorders: No Hx Family HEENT Disorders: No Hx Family Autoimmune Disorders: No Hx Family Psychosocial Disorders: Yes (Morbid obesity) Medications and Allergies Ergocalciferol (VITAMIN D2) [Vitamin D2] 1,000 unit PO 2XW 12/18/17 [History] Lipase/Protease/Amylase [Creon Dr 36,000 Units Capsule] 36,000 units PO TIDAC 12/18/17 [History] OLANZapine [Zyprexa] 20 mg PO HS 12/18/17 [History] Sucralfate [Carafate] 1 gm PO QID 12/18/17 [History] Vilazodone HCl [Viibryd] 40 mg PO DAILY 12/18/17 [History] Buprenorphine HCl 8 mg SL BID 03/22/18 [History] Dextroamphetamine/Amphetamine [Adderall 20 mg Tablet] 20 mg PO BID 03/22/18 [History] Esomeprazole Sodium [Nexium I.v.] 40 mg IV BID 03/22/18 [History] raNITIdine HCl [Zantac] 300 mg PO BID 03/22/18 [History] Allergy/AdvReac Type Severity Reaction Status Date / Time cephalexin Allergy Rash Verified 01/07/19 08:44 clindamycin Allergy Rash Verified 01/07/19 08:44 [id number] [From Nubain] AdvReac "didn't Verified 01/07/19 08:44 [address] the way it made me feel" - Constitutional Constitutional ROS PAL: as per HPI, decreased appetite, fatigue, lethargy - Cardiovascular Cardiovascular ROS: as per HPI - Respiratory Respiratory: as per HPI - Gastrointestinal Gastrointestinal: as per HPI, abdominal pain, loose stools, nausea, vomiting - Genitourinary Palliative ROS female: as per HPI, no difficulty voiding - Musculoskeletal Musculoskeletal ROS IM: as per HPI, muscle weakness - Neurological Neurological ROS: as per HPI, no confusion - Psychiatric Psychiatric general PM: as per HPI, anxiety, hopelessness, no suicidal ideation Palliative Care-Exam - Constitutional Vitals: Temp Pulse Resp BP Pulse Ox 99.3 F 89 19 125/77 97 01/07/19 06:57 01/07/19 06:57 01/07/19 06:57 01/07/19 06:57 01/07/19 06:57 Exam: CONSTITUTIONAL/GENERAL: Awake, interactive, sitting up in bed. Ear/Nose/Mouth/Throat (EMNT): Patent, atraumatic. CARDIOVASCULAR: Pulse regular; No edema. No cyanosis/ischemia. RESPIRATORY: Unlabored. Symmetric, normal effort. Room air. GASTROINTESTINAL: Soft, non-distended. Tender to palpation. Active bowel sounds present. GENITOURINARY: Voiding without difficulty. MUSCULOSKELETAL: No deformities; No joint swelling or erythema. INTEGUMENTARY: No rashes or lesions noted. Right subclavian line noted. NEUROLOGIC: No gross motor or sensory deficits appreciated. PSYCHIATRY: Alert, oriented, memory intact. Distracted at times during discussion, depressed mood at times when discussing clinical condition. Denies suicidal ideation at this time. Internal Medicine - CN: Reslt - Labs CBC & Chem 7: 01/07/19 04:00 01/07/19 04:00 Labs: Short CBC 01/06/19 01/07/19 Range/Units 16:20 04:00 WBC 5.0 5.0 (4.3-11.1) K/mcL Hgb 11.8 10.5 L (11.5-15.4) g/dL Hct 34.0 L 30.8 L (35.3-44.9) % Plt Count 333 271 (140-400) K/mcL Neutrophils # 1.4 L (1.6-8.9) K/mcL BMP 01/06/19 01/07/19 16:20 04:00 Sodium 135 L 139 Potassium 3.5 3.3 L Chloride 99 105 Carbon Dioxide 27 24 BUN 8 6 Creatinine 0.50 L 0.43 L Glucose 147 H 93 Calcium 7.6 L 7.2 L Liver Function 01/06/19 Range/Units 16:20 Total Bilirubin 0.5 (0.3-1.0) mg/dL Direct Bilirubin 0.2 (0.0-0.2) mg/dL AST 127 H (13-39) Units/L ALT 58 H (7-52) Units/L Alkaline Phosphatase 163 H (34-104) Units/L Albumin 3.1 L (3.5-5.7) g/dL Urine 01/06/19 Range/Units 16:56 Urine Color Yellow (Yellow) Urine Clarity Clear (Clear) Urine pH 6.0 (5.0-8.0) pH Units Ur Specific [place] 1.020 (1.010-1.025) Urine Protein Trace (Neg-Trace) mg/dL Urine Glucose (UA) Normal (Normal) mg/dL - ABG Interpretation ABG results: PT/INR, D-dimer PT 11.9 Seconds (9.4-12.1) 01/06/19 16:20 Consult Discharge Plan - Plan Referrals: NONE,PCP [Primary Care Provider] - Palliative Quality Palliative Quality: Screen for Code Status: Yes (Discussion today regarding goal s of care, likely will transition home with hospice.), Screen for Goals of Care: Yes, Screen for Pain: Yes, If Pain Regimen Started, Initiate Bowel Regimen: NA (Chronic loose stools. ), Screen for Nausea/Vomitting: Yes Code Status: 01/06/19 22:41 Resuscitation Status: Active [RES] Routine Comment: Discussed and verified w/patient personally Resuscitation Status: Full Code
[2019-01-07 11:34] LABS: Alanine Aminotransferase 47 Units/L (7-52); Albumin 2.6 g/dL (3.5-5.7); Albumin/Globulin Ratio 1.3 (1.1-2.2); Alkaline Phosphatase 133 Units/L (34-104); Aspartate Amino Transferase 101 Units/L (13-39); Bilirubin,Direct 0.3 mg/dL (0.0-0.2); Bilirubin,Indirect 0.4 mg/dL (0.0-1.2); Bilirubin,Total 0.7 mg/dL (0.3-1.0); Total Protein 4.6 g/dL (6.4-8.9)
--- NOTE | 2019-01-07 13:15 | Internal Med Progress Note ---
Hospitalist Progress Note - Encounter Date of Encounter: 01/07/19 Time of Encounter: 10:40 - Subjective Interval History: Ms. Abdi is a 43 year old female with known PMH of arthritis, alcoholic cirrhosis, COPD, GERD, osteoporosis, history of PE several years ago, anxiety, ADHD, bipolar depression, and prior suicide attempt presented to ER with chief c omplaint of withdrawal symptoms from recent alcohol abuse and failure to thrive. Patient is currently in end-stage cirrhosis and presents as malnourished. PICC line was placed previously for TPN. Patient states that she went on a drinking "gonsalez" after discussion of her end-stage cirrhosis and Hospice. She denied any current SI or HI but does report that she feels hopeless and currently has no qu ality of life. She was admitted in the hospital and started her on symptomatic and supportive care. She is alert, awake and O x 3. Looks weak and lethargic. Denied any CP / SOB. Able to tolerate clear liquid diet well. - Exam Vitals: Temp Pulse Resp BP Pulse Ox 99.3 F 89 19 125/77 97 01/07/19 06:57 01/07/19 06:57 01/07/19 06:57 01/07/19 06:57 01/07/19 06:57 Exam: Gen: Alert, awake, Oriented to time,place and person Chest: Diminished breath sounds B/L, No wheezing, No crackles, No rales Heart: S1S2+ RRR No murmurs Abd: Soft, NT, BS +, No organomegaly Ext: 1+ pedal edema, pulses are palpable, No calf tenderness Neuro : No acute focal neuro deficits noticed Skin: No rash. - Assessment and Plan (1) Alcoholism Current Visit: Yes Status: Acute Assessment and Plan: Pt stated she is drinking here and there only to help her depression She denied any SI / HI She does have end stage liver disease and wanted to proceed with home hospice care Will cont her on CIWA protocol GI is on board consulted Palliative care team to arrange for hospice (2) Elevated LFTs Current Visit: Yes Status: Acute Assessment and Plan: Due to Alcoholic cirrhosis of liver (3) Nausea and vomiting Current Visit: Yes Status: Acute Assessment and Plan: Improving continue symptomatic and supportive care tolerating clear liquid diet well will advance diet (4) Hypocalcemia Current Visit: Yes Status: Acute Assessment and Plan: Acute on chronic hypocalcemia w/calcium of 7.6 on admission Cont PO calcium carbonate (5) Alcoholic cirrhosis of liver Current Visit: Yes Status: Chronic Assessment and Plan: End stage liver disease over all poor prognosis pt wanted to go under home hospice care consulted [place] palliative care team Will hold on to TPN (6) Malnutrition Current Visit: Yes Status: Chronic Assessment and Plan: Severe PCM Short gut syndrome + Alcoholic cirrhosis of liver cont PO intake may hold on TPN for now (7) COPD (chronic obstructive pulmonary disease) Current Visit: Yes Status: Chronic Assessment and Plan: Not in exacerbation continue home regimen (8) GERD (gastroesophageal reflux disease) Current Visit: Yes Status: Chronic Assessment and Plan: on PPI (9) Tobacco abuse Current Visit: Yes Status: Chronic Assessment and Plan: Counseled to quit smoking placed on nicotine patch (10) Anxiety and depression Current Visit: Yes Status: Chronic Assessment and Plan: Continue Benzo's as needed (11) Hx of suicide attempt Current Visit: Yes Status: Resolved Assessment and Plan: Denied any suicidal ideation now psychiatry on board (12) DVT prophylaxis Current Visit: Yes Status: Acute Assessment and Plan: SQ heparin 5,000 units Q8HR for DVT prophylaxis - Time Spent with Patient Total time spent is greater than 50% in coordination of care (as documented) at patient's floor/unit and/or counseling patient: Internal Medicine: Result - Labs CBC & Chem 7: 01/07/19 04:00 01/07/19 04:00 Labs: Short CBC 01/06/19 01/07/19 Range/Units 16:20 04:00 WBC 5.0 5.0 (4.3-11.1) K/mcL Hgb 11.8 10.5 L (11.5-15.4) g/dL Hct 34.0 L 30.8 L (35.3-44.9) % Plt Count 333 271 (140-400) K/mcL Neutrophils # 1.4 L (1.6-8.9) K/mcL BMP 01/06/19 01/07/19 16:20 04:00 Sodium 135 L 139 Potassium 3.5 3.3 L Chloride 99 105 Carbon Dioxide 27 24 BUN 8 6 Creatinine 0.50 L 0.43 L Glucose 147 H 93 Calcium 7.6 L 7.2 L Liver Function 01/06/19 01/07/19 Range/Units 16:20 04:00 Total Bilirubin 0.5 0.7 (0.3-1.0) mg/dL Direct Bilirubin 0.2 0.3 H (0.0-0.2) mg/dL AST 127 H 101 H (13-39) Units/L ALT 58 H 47 (7-52) Units/L Alkaline Phosphatase 163 H 133 H (34-104) Units/L Albumin 3.1 L 2.6 L (3.5-5.7) g/dL Urine 01/06/19 Range/Units 16:56 Urine Color Yellow (Yellow) Urine Clarity Clear (Clear) Urine pH 6.0 (5.0-8.0) pH Units Ur Specific [place] 1.020 (1.010-1.025) Urine Protein Trace (Neg-Trace) mg/dL Urine Glucose (UA) Normal (Normal) mg/dL - ABG Interpretation ABG results: PT/INR, D-dimer PT 11.9 Seconds (9.4-12.1) 01/06/19 16:20 Consult Discharge Plan - Plan Referrals: NONE,PCP [Primary Care Provider] - (3) Nausea and vomiting Qualifiers: Vomiting type: cyclical vomiting Vomiting Intractability: non-intractable Qualified Code(s): G43.A0 - Cyclical vomiting, not intractable (5) Alcoholic cirrhosis of liver Qualifiers: Ascites presence: unspecified Qualified Code(s): K70.30 - Alcoholic cirrhosis of liver without ascites (6) Malnutrition Qualifiers: Malnutrition type: protein-calorie malnutrition Protein-calorie malnutrition severity: unspecified severity Qualified Code(s): E46 - Unspecified protein- calorie malnutrition (7) COPD (chronic obstructive pulmonary disease) Qualifiers: COPD type: unspecified COPD Qualified Code(s): J44.9 - Chronic obstructive pulmonary disease, unspecified (8) GERD (gastroesophageal reflux disease) Qualifiers: Esophagitis presence: esophagitis presence not specified Qualified Code(s): K21.9 - Gastro-esophageal reflux disease without esophagitis
[2019-01-07] MEDS: (Dextroamphetamine/Amphetamine [Adderall 20 Mg Tablet PO SCH (20:03)
[2019-01-07] MEDS: Famotidine 20 MG TABLET PO SCH (20:16)
[2019-01-07] MEDS: 0.9 % Sodium Chloride 1,000 ML IVC SCH (20:17)
[2019-01-07] MEDS ORDERED: OLANZapine 10 MG TAB.RAPDIS PO SCH (21:00)
[2019-01-08] MEDS: Nicotine 21 MG PATCH.TD24 TD SCH (04:57)
[2019-01-08 05:02] LABS: Hematocrit 29.8 % (35.3-44.9); Hemoglobin 10.1 g/dL (11.5-15.4); Mean Corpuscular HGB Conc 33.9 g/dL (31.6-35.5); Mean Corpuscular Hemoglobin 27.7 pg (28.0-33.3); Mean Corpuscular Volume 81.9 fL (83.0-100.0); Mean Platelet Volume 8.6 fL (9.4-12.4); Platelet Count 219 K/mcL (140-400); Red Blood Count 3.64 M/mcL (3.82-4.97); Red Cell Distribution Width 16.5 % (11.5-14.5); White Blood Count 4.2 K/mcL (4.3-11.1)
[2019-01-08 05:18] LABS: BUN/Creatinine Ratio 16 (6-26); Blood Urea Nitrogen 6 mg/dL (6-20); Calcium 7.5 mg/dL (8.6-10.3); Carbon Dioxide 28 mEq/L (23-29); Chloride 109 mEq/L (98-107); Glucose 92 mg/dL (70-105); Osmolality,Calculated 287 (280-300); Potassium 3.8 mEq/L (3.5-5.1); Sodium 140 mEq/L (136-145); eGFR For African Americans > 60 (> 60); eGFR For Non-African Americans > 60 (> 60)
[2019-01-08] MEDS: *HR* Heparin 5,000 UNIT/ML VIAL SQ SCH (05:25)
[2019-01-08 07:17] VITALS: BP 99/65
[2019-01-08] MEDS: *HR* Buprenorphine HCl 8 MG TAB.SUBL SL SCH (08:13)
[2019-01-08] MEDS: Famotidine 20 MG TABLET PO SCH (08:13)
[2019-01-08] MEDS: (Dextroamphetamine/Amphetamine [Adderall 20 Mg Tablet PO SCH (08:14)
[2019-01-08] MEDS ORDERED: VILAZODONE HCL 40 MG PO SCH (09:00)
[2019-01-08] MEDS ORDERED: [UNRECOGNIZED DRUG - OTHER] PO SCH (09:00)
--- NOTE | 2019-01-08 09:17 | Palliative Progress Note ---
Date of Encounter: 01/08/19 Time of Encounter: 09:30 - Assessment and plan (1) Palliative care by specialist Current Visit: Yes Status: Acute Assessment and plan: Pt currently has capacity to make complex medical decisions. Pt reports her daughter is listed as her HCPOA. No advanced directive paperwork found on file in medical record. Pt is not , therefore her daughter would be LNOK and thus surrogate decision maker. (2) Goals of care, counseling/discussion Current Visit: Yes Status: Acute Assessment and plan: Goals of care discussion yesterday with patient. Pt expressed her main goal is to be home with hospice care and focus on her comfort and quality of life for the time she has left. She does not with to continue TPN any longer. Pt transitioned to DNRCC yesterday per her wishes. Plan to discharge home with [facility] services today. See Palliative note 01/07/19 for additional details regarding goals of care discussion. (3) Alcoholic cirrhosis of liver Current Visit: Yes Status: Chronic Assessment and plan: hx of chronic alcoholic cirrhosis of the liver. Continued management per primary team. Qualifiers: Ascites presence: unspecified Qualified Code(s): K70.30 - Alcoholic cirrhosis of liver without ascites (4) Malnutrition Current Visit: Yes Status: Chronic Assessment and plan: hx of malnutrition r/t previous gastric bypass surgery. Malnutrition is worsened by pt's continued alcohol abuse. Nutrition consult ordered per primary team. Pt voices she does not wish to continue TPN any longer. Qualifiers: Malnutrition type: protein-calorie malnutrition Protein-calorie malnutrition severity: severe Qualified Code(s): E43 - Unspecified severe protein-calorie malnutrition (5) Anxiety and depression Current Visit: Yes Status: Chronic Assessment and plan: hx of chronic anxiety and depression. Hx of prior suicide attempt. Psychiatry now following. Pt continues on home medications. (6) Difficulty coping Current Visit: Yes Status: Acute Assessment and plan: r/t current clinical condition and long history of complex medical issues. State Trooper to see pt today per her request. (7) Hx of suicide attempt Current Visit: Yes Status: Resolved Assessment and plan: Pt denies suicidal ideation this admission. Psychiatry consulted this admission. (8) Hx of drug abuse Current Visit: Yes Status: Acute Assessment and plan: Pt currently on Buprenorphine 8mg SL BID prescribed by Dr. Samantha Ramirez in [place], [place]. OARRS report reviewed, consistent with pt report. (9) Bipolar disorder Current Visit: Yes Status: Acute Qualifiers: Active/Remission status: remission status unspecified Qualified Code(s): F31.9 - Bipolar disorder, unspecified (10) COPD (chronic obstructive pulmonary disease) Current Visit: Yes Status: Chronic Qualifiers: COPD type: unspecified COPD Qualified Code(s): J44.9 - Chronic obstructive pulmonary disease, unspecified (11) Alcohol use disorder Current Visit: Yes Status: Acute - Time Spent With Patient Total time spent is greater than 50% in coordination of care (as documented) at patient's floor/unit and/or counseling patient: Greater than 35 minutes - Subjective Interval history: Pt is sitting up in bed, appears comfortable, NAD. Sister Evelyn at bedside during visit. Pt to discharge home with [facility] services later today. Pt's sister Evelyn given contact information to [facility] per pt request. [facility] to touch base with Evelyn today to answer questions. Pt is tearful today during visit when discussing her clinical condition. She expressed, "I am afraid to and go to hell." Palliative offered active listening and support. Pt is open to publications designer visit today, Palliative Care has reached out to publications designer. Pt expressed she is anxious to discharge home today. She continues to report chronic abdominal pain for which she is currently on Suboxone. She denies any additional symptoms or needs at this time. - Constitutional Vitals: Abnormal lab results WBC 4.2 K/mcL (4.3-11.1) L 01/08/19 04:45 RBC 3.64 M/mcL (3.82-4.97) L 01/08/19 04:45 Hgb 10.1 g/dL (11.5-15.4) L 01/08/19 04:45 Hct 29.8 % (35.3-44.9) L 01/08/19 04:45 MCV 81.9 fL (83.0-100.0) L 01/08/19 04:45 MCH 27.7 pg (28.0-33.3) L 01/08/19 04:45 RDW 16.5 % (11.5-14.5) H 01/08/19 04:45 MPV 8.6 fL (9.4-12.4) L 01/08/19 04:45 Neutrophils # 1.4 K/mcL (1.6-8.9) L 01/06/19 16:20 APTT 37.3 Seconds (26.0-36.0) H 01/06/19 16:20 Sodium 135 mEq/L (136-145) L 01/06/19 16:20 Potassium 3.3 mEq/L (3.5-5.1) L 01/07/19 04:00 Chloride 109 mEq/L (98-107) H 01/08/19 04:45 Creatinine 0.37 mg/dL (0.60-1.20) L 01/08/19 04:45 Glucose 147 mg/dL (70-105) H 01/06/19 16:20 POC Glucose 133 mg/dL (70-99) H 01/07/19 19:34 Calcium 7.5 mg/dL (8.6-10.3) L 01/08/19 04:45 Direct Bilirubin 0.3 mg/dL (0.0-0.2) H 01/07/19 04:00 AST 101 Units/L (13-39) H 01/07/19 04:00 ALT 58 Units/L (7-52) H 01/06/19 16:20 Alkaline Phosphatase 133 Units/L (34-104) H 01/07/19 04:00 Serum Total Protein 4.6 g/dL (6.4-8.9) L 01/07/19 04:00 Albumin 2.6 g/dL (3.5-5.7) L 01/07/19 04:00 Globulin 2.0 g/dL (2.4-3.5) L 01/07/19 04:00 HDL Cholesterol 38 mg/dL (40-59) L 01/07/19 04:00 Urine Ketones Trace mg/dL (Negative) H 01/06/19 16:56 Urine Bilirubin Small (Negative) H 01/06/19 16:56 Urine Urobilinogen 2.0 mg/dL (Normal) H 01/06/19 16:56 Ur Leukocyte Esterase Trace (Negative) H 01/06/19 16:56 Salicylates < 2.5 mg/dL (15.0-30.0) L 01/06/19 16:20 Ur Buprenorphine Scrn Positive ng/mL (Cutoff=5) H 01/06/19 16:56 Acetaminophen < 10 mcg/mL (10-20) L 01/06/19 16:20 Ethyl Alcohol 238 mg/dL (Less than 10) H 01/06/19 16:20 Exam: CONSTITUTIONAL/GENERAL: Awake, interactive, sitting up in bed. Ear/Nose/Mouth/Throat (EMNT): Patent, atraumatic. CARDIOVASCULAR: Pulse regular; No edema. No cyanosis/ischemia. RESPIRATORY: Unlabored. Symmetric, normal effort. Room air. GASTROINTESTINAL: Soft, non-distended. Tender to palpation. GENITOURINARY: Voiding without difficulty. MUSCULOSKELETAL: No deformities; No joint swelling or erythema. INTEGUMENTARY: No rashes or lesions noted. Right subclavian line noted. NEUROLOGIC: No gross motor or sensory deficits appreciated. PSYCHIATRY: Alert, oriented, memory intact. Tearful and depressed mood at times when discussing clinical condition. Palliative Quality Palliative Quality: Screen for Code Status: Yes (DNRCC with plan to discharge to hospice.), Screen for Goals of Care: Yes, Screen for Pain: Yes, If Pain Regimen Started, Initiate Bowel Regimen: NA (Chronic loose stools. ), Screen for Nausea/Vomitting: Yes Code Status: 01/06/19 22:41 Resuscitation Status: Active [RES] Routine Comment: Discussed and verified w/patient personally Resuscitation Status: Full Code 01/07/19 15:29 Resuscitation Status: Active [RES] Routine Comment: Discussed and verified w/patient personally Resuscitation Status: DNR-Comfort Care - Labs CBC & Chem 7: 01/08/19 04:45 01/08/19 04:45 Labs: Laboratory Results - last 24 hr 01/07/19 01/07/19 01/07/19 04:00 06:59 11:24 WBC RBC Hgb Hct MCV MCH MCHC RDW Plt Count MPV Sodium 139 Potassium 3.3 L Chloride 105 Carbon Dioxide 24 BUN 6 Creatinine 0.43 L Est GFR ( Amer) > 60 Est GFR (Non-Af Amer) > 60 BUN/Creatinine Ratio 14 Glucose 93 POC Glucose 113 H 127 H Calculated Osmolality 285 Calcium 7.2 L Phosphorus 2.9 Magnesium 1.6 Total Bilirubin 0.7 Direct Bilirubin 0.3 H Indirect Bilirubin 0.4 AST 101 H ALT 47 Alkaline Phosphatase 133 H Serum Total Protein 4.6 L Albumin 2.6 L Globulin 2.0 L Albumin/Globulin Ratio 1.3 Triglycerides 108 Cholesterol 86 LDL Cholesterol, Calc 26 VLDL Cholesterol, Calc 22 HDL Cholesterol 38 L Cholesterol/HDL Ratio 2.3 01/07/19 01/07/19 01/08/19 16:58 19:34 04:45 WBC 4.2 L RBC 3.64 L Hgb 10.1 L Hct 29.8 L MCV 81.9 L MCH 27.7 L MCHC 33.9 RDW 16.5 H Plt Count 219 MPV 8.6 L Sodium Potassium Chloride Carbon Dioxide BUN Creatinine Est GFR ( Amer) Est GFR (Non-Af Amer) BUN/Creatinine Ratio Glucose POC Glucose 193 H 133 H Calculated Osmolality Calcium Phosphorus Magnesium Total Bilirubin Direct Bilirubin Indirect Bilirubin AST ALT Alkaline Phosphatase Serum Total Protein Albumin Globulin Albumin/Globulin Ratio Triglycerides Cholesterol LDL Cholesterol, Calc VLDL Cholesterol, Calc HDL Cholesterol Cholesterol/HDL Ratio 01/08/19 04:45 WBC RBC Hgb Hct MCV MCH MCHC RDW Plt Count MPV Sodium 140 Potassium 3.8 Chloride 109 H Carbon Dioxide 28 BUN 6 Creatinine 0.37 L Est GFR ( Amer) > 60 Est GFR (Non-Af Amer) > 60 BUN/Creatinine Ratio 16 Glucose 92 POC Glucose Calculated Osmolality 287 Calcium 7.5 L Phosphorus Magnesium Total Bilirubin Direct Bilirubin Indirect Bilirubin AST ALT Alkaline Phosphatase Serum Total Protein Albumin Globulin Albumin/Globulin Ratio Triglycerides Cholesterol LDL Cholesterol, Calc VLDL Cholesterol, Calc HDL Cholesterol Cholesterol/HDL Ratio - ABG Interpretation ABG results: PT/INR, D-dimer PT 11.9 Seconds (9.4-12.1) 01/06/19 16:20 Palliative Scale - Palliative Performance Scale How ambulatory is this patient?: Reduced What is patient's level of activity and evidence of disease?: Unable hobby/housework, Significant disease How much self-care assistance does patient require?: Occasional assistance necessary How much oral intake does the patient have?: Normal or reduced What is this patient's level of consciousness?: Full Palliative Performance Score: 60 % Consult Discharge Plan - Plan Referrals: NONE,PCP [Primary Care Provider] - Prescriptions: LORazepam Oral Conc [Ativan Oral Conc] 1 mg SL Q6HR PRN 5 Days #10 mls PRN Reason: Anxiety Prescription Printed OxyCODONE Oral CONC [Oxycodone Oral Conc] 5 mg SL Q6HR PRN 6 Days #7 ml PRN Reason: Moderate Pain Prescription Printed Omeprazole [PriLOSEC] 20 mg PO BIDAC #60 cap Prescription Printed
[2019-01-08] MEDS ORDERED: *HR* LORazepam Oral Conc 2 MG/ML SL PRN (10:53)
--- NOTE | 2019-01-08 11:27 | Discharge Summary ---
- NOTES TO OUTPATIENT PROVIDER Notes to Outpatient Provider: f/u with PCP in one week. f/u with [facility] team. Orders not resulted at time of discharge: Pending orders 01/07/19 04:00 Vitamin B1 (Thiamine) Whole Bl AM 0400 01/07/19 05:10 Vitamin B2 (Riboflavin) AM 0400 Vitamin B6 (Pyridoxal 5-Phos AM 0400 Date of Encounter: 01/08/19 Time of Encounter: 11:20 - Discharge Diagnosis (1) Alcoholism Priority: Primary Status: Acute (2) Elevated LFTs Priority: Primary Status: Acute (3) Nausea and vomiting Priority: Secondary Status: Acute Qualifiers: Vomiting type: cyclical vomiting Vomiting Intractability: non-intractable Qualified Code(s): G43.A0 - Cyclical vomiting, not intractable (4) Hypocalcemia Priority: Secondary Status: Acute (5) Alcoholic cirrhosis of liver Priority: Secondary Status: Chronic Qualifiers: Ascites presence: unspecified Qualified Code(s): K70.30 - Alcoholic cirrhosis of liver without ascites (6) Malnutrition Priority: Secondary Status: Chronic Qualifiers: Malnutrition type: protein-calorie malnutrition Protein-calorie malnutrition severity: severe Qualified Code(s): E43 - Unspecified severe protein-calorie malnutrition (7) COPD (chronic obstructive pulmonary disease) Priority: Secondary Status: Chronic Qualifiers: COPD type: unspecified COPD Qualified Code(s): J44.9 - Chronic obstructive pulmonary disease, unspecified (8) GERD (gastroesophageal reflux disease) Priority: Secondary Status: Chronic Qualifiers: Esophagitis presence: esophagitis presence not specified Qualified Code(s): K21.9 - Gastro-esophageal reflux disease without esophagitis (9) Tobacco abuse Priority: Secondary Status: Chronic (10) Anxiety and depression Priority: Secondary Status: Chronic (11) Hx of suicide attempt Priority: Secondary Status: Resolved (12) DVT prophylaxis Priority: Secondary Status: Acute Hospital course: Ms. Abdi is a 43 year old female with known PMH of arthritis, alcoholic cirrhosis, COPD, GERD, osteoporosis, history of PE several years ago, anxiety, ADHD, bipolar depression, and prior suicide attempt presented to ER with chief complaint of withdrawal symptoms from recent alcohol abuse and failure to thrive. Patient is currently in end-stage cirrhosis and presents as maln ourished. PICC line was placed previously for TPN. Patient states that she went on a drinking "gonsalez" after discussion of her end-stage cirrhosis and Hospice. She denied any current SI or HI but does report that she feels hopeless and currently has no quality of life. She was admitted in the hospital and started her on symptomatic and supportive care. She is alert, awake and O x 3. She was continued on symptomatic and supportive care. Pt wanted to proceed with home hospice care and do not want continue on TPN. Pt was evaluated by [facility] and accepted into their home hospice care. Since hospice is not going to provide Suboxone therapy, I did recommend the pt f/u Suboxone clinic and slowly wean off the medication since we d/c her home on Oxycodone SL and Ativan SL PRN.. Will d.c her PICC line before she get to d/c home. - Time Spent with Patient Total time spent providing and/or coordinating discharge services: - Discharge Medications Prescriptions: New LORazepam Oral Conc [Ativan Oral Conc] 1 mg SL Q6HR PRN 5 Days #10 mls PRN Reason: Anxiety OxyCODONE Oral CONC [Oxycodone Oral Conc] 5 mg SL Q6HR PRN 6 Days #7 ml PRN Reason: Moderate Pain Omeprazole [PriLOSEC] 20 mg PO BIDAC #60 cap Continued Ergocalciferol (VITAMIN D2) [Vitamin D2] 1,000 unit PO 2XW Lipase/Protease/Amylase [Virgilio Dr 36,000 Units Capsule] 36,000 units PO TIDAC OLANZapine [Zyprexa] 20 mg PO HS Sucralfate [Carafate] 1 gm PO QID Vilazodone HCl [Viibryd] 40 mg PO DAILY Buprenorphine HCl 8 mg SL BID Dextroamphetamine/Amphetamine [Adderall 20 mg Tablet] 20 mg PO BID raNITIdine HCl [Zantac] 300 mg PO BID Discontinued Esomeprazole Sodium [Nexium I.v.] 40 mg IV BID Home Medications: Ergocalciferol (VITAMIN D2) [Vitamin D2] 1,000 unit PO 2XW 12/18/17 [History] Lipase/Protease/Amylase [Virgilio Dr 36,000 Units Capsule] 36,000 units PO TIDAC 12/18/17 [History] OLANZapine [Zyprexa] 20 mg PO HS 12/18/17 [History] Sucralfate [Carafate] 1 gm PO QID 12/18/17 [History] Vilazodone HCl [Viibryd] 40 mg PO DAILY 12/18/17 [History] Buprenorphine HCl 8 mg SL BID 03/22/18 [History] Dextroamphetamine/Amphetamine [Adderall 20 mg Tablet] 20 mg PO BID 03/22/18 [History] raNITIdine HCl [Zantac] 300 mg PO BID 03/22/18 [History] LORazepam Oral Conc [Ativan Oral Conc] 1 mg SL Q6HR PRN 5 Days #10 mls 01/08/19 [Rx] Omeprazole [PriLOSEC] 20 mg PO BIDAC #60 cap 01/08/19 [Rx] OxyCODONE Oral CONC [Oxycodone Oral Conc] 5 mg SL Q6HR PRN 6 Days #7 ml 01/08/19 [Rx] Allergies/Adverse Reactions: Allergy/AdvReac Type Severity Reaction Status Date / Time cephalexin Allergy Rash Verified 01/07/19 08:44 clindamycin Allergy Rash Verified 01/07/19 08:44 nalbuphine [From Nubain] AdvReac "didn't Verified 01/07/19 08:[address] it made me feel" Date of admission: 01/06/19 19:43 Primary care physician: PCP NONE Consults: 01/06/19 22:28 Consult to Nutrition [CONS] Routine Comment: Consulting Provider: NUTRITION Reason for Dietary Consult: PO Supplementation 01/06/19 22:29 Consult to Development Administrator [CONS] Routine Reason for SW Consult: Patient is wanting to enter rehabilitation w/AA 01/06/19 22:49 Consult to Psychiatry [CONS] Routine Consulting Provider: Psychiatry Parul Reason consult: Sitter/1:1 Other reason and/or additional details: Patient received news that she is appropriate for Hospice based on her advanced liver disease r/t her alcohol abuse and pt. is severely depressed. Patient has a psychiatric hx and would benefit from a Psychiatric consult at this time. Call Completed: Yes 01/07/19 09:41 Consult to Palliative Care [CONS] Routine Comment: Consulting Provider: Palliative Care Parul Reason for Consult: Pt wanted to go home with home hospice care.. 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 Time Notified: 09:42 Call Completed: Yes 01/08/19 10:58 Consult to Interventional Radiology [CONS] Routine Consulting Provider: Radiology Interventional Cols Reason for Consult: Tunneled PICC line discontinuation Call Completed: No - Constitutional Vitals: Temp Pulse Resp BP Pulse Ox 97.8 F 69 17 99/65 99 01/08/19 07:10 01/08/19 07:10 01/08/19 07:10 01/08/19 07:10 01/08/19 07:10 General appearance: Present: cooperative, disheveled, A&O X 3, underweight, answers questions appropriately Exam: Gen: Alert, awake, Oriented to time,place and person Chest: Diminished breath sounds B/L, No wheezing, No crackles, No rales Heart: S1S2+ RRR No murmurs Abd: Soft, NT, BS +, No organomegaly Ext: 1+ pedal edema, pulses are palpable, No calf tenderness Neuro : No acute focal neuro deficits noticed Skin: No rash. - Patient Status Disposition: Hospice - Home Condition: Good Overall status at discharge: patient is back to baseline - Discharge Instructions Follow Up With: NONE,PCP [Primary Care Provider] - - Diet and Activity Activity: increase activity as tolerated Diet: low salt diet
--- NOTE | 2019-01-08 11:30 | Physician Discharge Referral ---
Home Health/Hosp Referral Info Transfer to: Home Health, Hospice Provider in Charge Post Discharge: Junior Project Coordinator - Diagnosis (1) Alcoholism Status: Acute (2) Elevated LFTs Status: Acute (3) Nausea and vomiting Status: Acute (4) Hypocalcemia Status: Acute (5) Alcoholic cirrhosis of liver Status: Chronic (6) Malnutrition Status: Chronic (7) COPD (chronic obstructive pulmonary disease) Status: Chronic (8) GERD (gastroesophageal reflux disease) Status: Chronic (9) Tobacco abuse Status: Chronic (10) Anxiety and depression Status: Chronic (11) Hx of suicide attempt Status: Resolved (12) DVT prophylaxis Status: Acute - Respiratory Orders Smoking Cessation: Smoking cessation has been advised. For more information, call the [place] Tobacco Quit Line at 1-606-YVVZ-NOW. - Services Needed Following services are medically necessary services: Nursing, Home Health Aide - Transfer Medications Prescriptions: LORazepam Oral Conc [Ativan Oral Conc] 1 mg SL Q6HR PRN 5 Days #10 mls PRN Reason: Anxiety Prescription Printed OxyCODONE Oral CONC [Oxycodone Oral Conc] 5 mg SL Q6HR PRN 6 Days #7 ml PRN Reason: Moderate Pain Prescription Printed Omeprazole [PriLOSEC] 20 mg PO BIDAC #60 cap Prescription Printed Home Medications: Ergocalciferol (VITAMIN D2) [Vitamin D2] 1,000 unit PO 2XW 12/18/17 [History] Lipase/Protease/Amylase [Creon Dr 36,000 Units Capsule] 36,000 units PO TIDAC 12/18/17 [History] OLANZapine [Zyprexa] 20 mg PO HS 12/18/17 [History] Sucralfate [Carafate] 1 gm PO QID 12/18/17 [History] Vilazodone HCl [Viibryd] 40 mg PO DAILY 12/18/17 [History] Buprenorphine HCl 8 mg SL BID 03/22/18 [History] Dextroamphetamine/Amphetamine [Adderall 20 mg Tablet] 20 mg PO BID 03/22/18 [History] raNITIdine HCl [Zantac] 300 mg PO BID 03/22/18 [History] LORazepam Oral Conc [Ativan Oral Conc] 1 mg SL Q6HR PRN 5 Days #10 mls 01/08/19 [Rx] Omeprazole [PriLOSEC] 20 mg PO BIDAC #60 cap 01/08/19 [Rx] OxyCODONE Oral CONC [Oxycodone Oral Conc] 5 mg SL Q6HR PRN 6 Days #7 ml 01/08/19 [Rx] Allergies/Adverse Reactions: Allergy/AdvReac Type Severity Reaction Status Date / Time cephalexin Allergy Rash Verified 01/07/19 08:44 clindamycin Allergy Rash Verified 01/07/19 08:44 nalbuphine [From Nubain] AdvReac "didn't Verified 01/07/19 08:44 like the way it made me feel" Certification: Further, I certify that my clinical findings support that this patient is home bound (i.e. absences from home require considerable and taxing effort and are for medical reasons or islam services or infrequently or short duration when for other reasons) because: Homebound Reason: Patient requires assistance of a person or device to safely leave home Attestation: My signature below is to certify that this patient is under my care and that I, or nurse practitioner, or a physician's assistant distribution manager working with me, has a [id number] encounter with this patient.
[2019-01-09] MEDS ORDERED: Cholecalciferol (D-3) 1,000 UNIT (25MCG) TABLET PO SCH (09:00)
== END 2019-01-08 15:24 | disposition hospice, home (50) ==
LOC: EMEROOARM 15:58 → 3BNU 15:58 → SUATTDRO 19:43 → 3BNU 20:27
PROVIDERS: ADMIT Internal Medicine; ATTEND Family Medicine

== ENCOUNTER 2019-01-16 10:20 | Observation (INO) ==
--- NOTE | 2019-01-16 10:35 | Emergency Department Note ---
Disposition Clinical Impression: Suicidal ideation, Rib pain on left side Disposition: Admitted As Inpatient Condition: Fair Forms: ED Satisfaction Letter Time of Disposition: 13:54 Fall HPI - General Chief Complaint: ED Fall Stated Complaint: Fall Time Seen by Provider: 01/16/19 10:26 Source: EMS Mode of arrival: EMS Limitations: no limitations Nursing Notes Reviewed: Yes Vital Signs Reviewed: Yes - History of Present Illness HPI Narrative: This is a 43-year-old female who is currently on hospice care for cirrhosis secondary to alcohol abuse who presents via EMS due to fall and left rib pain. The patient tells me she fell this morning when she was getting up from the toilet. States that she fell after losing her balance into the toilet paper kat. She fell onto her left ribs. She denies any head injury or loss of consciousness. EMS was called and the patient was brought in for evaluation. They report that someone at the home was concerned that she had taken Ativan. The patient tells me that she does not take it on a daily basis but she had worsening pain over the last few days and was trying to get some sleep last night and took a few doses. She denies any intent to harm herself and says she has a reason to live which is her granddaughter. She has no pain except for pain over the left ribs. She denies any other complaints. Pt Subjective Complaint: fall Onset (ago): hour(s) Fall From: standing Fall Witnessed: no Place Fall Occurred: home Loss of Consciousness: none Prolonged Down Time?: no Symptoms Prior to Fall: none Context: tripped/slipped Location of injury: chest - Related Data Home Medications Medication Instructions Recorded Confirmed Ergocalciferol (VITAMIN D2) 1,000 unit PO 2XW 12/18/17 01/07/19 [Vitamin D2] Lipase/Protease/Amylase [Virgilio Dr 36,000 units PO TIDAC 12/18/17 01/07/19 36,000 Units Capsule] OLANZapine [Zyprexa] 20 mg PO HS 12/18/17 01/07/19 Sucralfate [Carafate] 1 gm PO QID 12/18/17 01/07/19 Vilazodone HCl [Viibryd] 40 mg PO DAILY 12/18/17 01/07/19 Buprenorphine HCl 8 mg SL BID 03/22/18 01/07/19 Dextroamphetamine/Amphetamine 20 mg PO BID 03/22/18 01/07/19 [Adderall 20 mg Tablet] raNITIdine HCl [Zantac] 300 mg PO BID 03/22/18 01/07/19 Previous Rx's Medication Instructions Recorded LORazepam Oral Conc [Ativan Oral 1 mg SL Q6HR PRN 5 Days #10 mls 01/08/19 Conc] Omeprazole [PriLOSEC] 20 mg PO BIDAC #60 cap 01/08/19 OxyCODONE Oral CONC [Oxycodone 5 mg SL Q6HR PRN 6 Days #7 ml 01/08/19 Oral Conc] Allergies Allergy/AdvReac Type Severity Reaction Status Date / Time cephalexin Allergy Rash Verified 01/07/19 08:44 clindamycin Allergy Rash Verified 01/07/19 08:44 nalbuphine [From Nubain] AdvReac "didn't Verified 01/07/19 08:44 like the way it made me feel" All systems ED: reviewed and negative except as stated. Cardiovascular: Reports: other (Left rib pain) Respiratory: Denies: dyspnea Gastrointestinal: Reports: abdominal pain (Chronic) Neurological: Denies: headache, numbness, paresthesias Fall PMH - Past Medical History Medical history: Reports: arthritis, cirrhosis, COPD, GERD, liver disease, osteoporosis, pulmonary embolus, other Surgical history: Reports: appendectomy, colectomy, herniorrhaphy, hysterectomy, other (cardiac ablation, multiple bowel surgeries), bariatric surgery Psychiatric history: Reports: anxiety, ADHD, bipolar, depression, prior suicide attempt, previous psychiatric hospitalization [employer] history: Reports: bilateral tubal ligation - Social History Smoking Status: Current every day smoker Alcohol use: Reports: heavy, recent Drug use: Reports: none Physical Exam - General Limitations: no limitations General appearance: alert, in no apparent distress - Head Head exam: atraumatic, normocephalic, normal inspection - Eye Eye exam: Present: normal appearance - ENT ENT exam: normal exam - Neck Neck exam: Present: normal inspection - Chest Chest inspection: Present: normal inspection, symmetric chest wall rise, other (Patient has a small abrasion of the left lower lateral ribs. Focal tenderness there. No crepitus or gross deformity.) - Respiratory Respiratory exam: Present: normal lung sounds bilaterally - Cardiovascular Cardiovascular exam: Present: regular rate, normal rhythm, normal heart sounds - Abdominal Exam Abdominal exam: Present: soft, tenderness (Patient has chronic tenderness in the epigastric and right upper quadrant.) - Extremities Exam Extremities exam: Present: normal inspection, full ROM - Expanded Upper Extremity Exam Shoulder exam: Present: normal inspection, full ROM Arm exam: Present: normal inspection, full ROM Elbow exam: Present: normal inspection, full ROM Forearm/Wrist exam: Present: normal inspection, full ROM Hand exam: Present: normal inspection, full ROM - Expanded Lower Extremity Exam Hip/Pelvis exam: Present: normal inspection, full ROM Upper leg exam: Present: normal inspection, full ROM Knee exam: Present: normal inspection, full ROM Lower leg exam: Present: normal inspection, full ROM, other (Peripheral venous stasis changes.) Ankle exam: Present: normal inspection, full ROM Foot/toe exam: Present: normal inspection, full ROM Neurovascular/Tendon exam: Absent: motor deficit, sensory deficit - Neurological Exam Neurological exam: Present: alert, other (Alert, GCS 15, no focal deficits, mentating appropriately.) - Psychiatric Psychiatric exam: Present: normal affect, normal mood. Absent: suicidal ideation - Skin Skin exam: Present: warm, dry Course Course Narrative: Seen and examined. The patient again denies any type of suicidal ideation. She states that she has osteoporosis and is concerned that she could have a rib fracture. She also really like to go home if all possible. We will obtain x- rays of the left ribs and a lidocaine patch. - Reevaluation(s) Reevaluation #1: Patient's home health nurse called in with reports that a squad had been there earlier around 6 AM and the patient had voiced at that time that she wanted to . I discussed this with the patient and she tells me that she might of said that she cannot really remember. The patient is pink slipped for concern of suicidal ideation and medication mismanagement. Labs pending for psychiatric evaluation. Reevaluation #2: Patient was found to have a bottle of prescription amphetamines that appear to have more missing than it should. Reevaluation #3: Discussed with the psychiatry nurse. They recommend admission for medical clearance given her benzodiazepine use. Patient is pink slipped. They will see in consultation. Vital Signs Temperature 98.4 F 01/16/19 10:23 Pulse Rate 68 01/16/19 10:23 Respiratory Rate 16 01/16/19 10:23 Blood Pressure 112/53 01/16/19 10:23 O2 Sat by Pulse Oximetry 100 01/16/19 10:23 Temperature 98.4 F 01/16/19 10:23 Pulse Rate 71 01/16/19 11:02 Respiratory Rate 16 01/16/19 11:02 Blood Pressure 118/75 01/16/19 11:02 O2 Sat by Pulse Oximetry 100 01/16/19 11:02 Oxygen Delivery Oxygen Delivery Room Air Fall - MDM Narrative Medical decision making narrative: 43-year-old female who initially presented with left rib pain from a mechanical fall. Patient is on hospice currently. There was concern that she was using her Ativan incorrectly at home. There have been varying stories about potential suicidal ideation. She reportedly told EMS that she wanted to earlier today. The patient is currently pink slipped. She had labs obtained and was evaluated by psychiatry. They recommended medical admission and they will follow in consultation. Case was discussed with the admitting hospitalist who accepts for admission. I added on and INR all of the patient had a normal INR several days ago. They also requested EKG which has been ordered. - Lab Data Lab results reviewed: Yes I reviewed the patient's lab results. Result diagrams: 01/16/19 11:09 01/16/19 11:09 Lab Results 01/16/19 01/16/19 01/16/19 Range/Units 11:09 11:09 11:09 WBC 6.9 (4.3-11.1) K/mcL RBC 4.20 (3.82-4.97) M/mcL Hgb 11.8 (11.5-15.4) g/dL Hct 35.0 L (35.3-44.9) % MCV 83.3 (83.0-100.0) fL MCH 28.1 (28.0-33.3) pg MCHC 33.7 (31.6-35.5) g/dL RDW 19.9 H (11.5-14.5) % Plt Count 316 (140-400) K/mcL MPV 9.4 (9.4-12.4) fL Immature Gran % 0.1 (0-4) % Seg Neutrophils % 38.7 % Lymphocytes % 40.8 % Monocytes % 13.8 % Eosinophils % 6.3 % Basophils % 0.3 % Neutrophils # 2.7 (1.6-8.9) K/mcL Lymphocytes # 2.8 (0.6-4.6) K/mcL Monocytes # 1.0 (0.0-1.3) K/mcL Eosinophils # 0.4 (0.0-0.6) K/mcL Basophils # 0.0 (0.0-0.2) K/mcL Sodium 139 (136-145) mEq/L Potassium 3.4 L (3.5-5.1) mEq/L Chloride 110 H (98-107) mEq/L Carbon Dioxide 24 (23-29) mEq/L BUN 8 (6-20) mg/dL Creatinine 0.50 L (0.60-1.20) mg/dL Est GFR ( Amer) > 60 (> 60) Est GFR (Non-Af Amer) > 60 (> 60) BUN/Creatinine Ratio 16 (6-26) Glucose 90 (70-105) mg/dL Calculated Osmolality 286 (280-300) Calcium 8.3 L (8.6-10.3) mg/dL Total Bilirubin 0.6 (0.3-1.0) mg/dL Direct Bilirubin 0.2 (0.0-0.2) mg/dL Indirect Bilirubin 0.4 (0.0-1.2) mg/dL AST 26 (13-39) Units/L ALT 26 (7-52) Units/L Alkaline Phosphatase 117 H (34-104) Units/L Serum Total Protein 5.3 L (6.4-8.9) g/dL Albumin 3.0 L (3.5-5.7) g/dL Globulin 2.3 L (2.4-3.5) g/dL Albumin/Globulin Ratio 1.3 (1.1-2.2) Urine Color (Yellow) Urine Clarity (Clear) Urine pH (5.0-8.0) pH Units Ur Specific [place] (1.010-1.025) Urine Protein (Neg-Trace) mg/dL Urine Glucose (UA) (Normal) mg/dL Urine Ketones (Negative) mg/dL Urine Blood (Negative) Urine Nitrite (Negative) Urine Bilirubin (Negative) Urine Urobilinogen (Normal) mg/dL Ur Leukocyte Esterase (Negative) Urine Microscopic WBC (0-3) per hpf Ur Squamous Epith Cells (None-Few) per lpf Ur Transition Epith Cell (None-Few) per hpf Urine Bacteria (None-Few) per hpf Urine Test (Negative) Salicylates < 2.5 L (15.0-30.0) mg/dL Urine Opiates Screen (Hxeijt=464) ng/mL Ur Buprenorphine Scrn (Cutoff=5) ng/mL Acetaminophen < 10 L (10-20) mcg/mL Ur Barbiturates Screen (Ijnexo=606) ng/mL Ur Phencyclidine Scrn (Cutoff=25) ng/mL Ur Amphetamines Screen (Nyrkts=3073) ng/mL U Benzodiazepines Scrn (Sioawd=575) ng/mL Urine Cocaine Screen (Cutoff= 300) ng/mL U Marijuana (THC) Screen (Cutoff = 50) ng/mL Ur Drug Screen Interp Ethyl Alcohol < 10 (Less than 10) mg/dL 01/16/19 01/16/19 01/16/19 Range/Units 11:46 11:46 11:46 WBC (4.3-11.1) K/mcL RBC (3.82-4.97) M/mcL Hgb (11.5-15.4) g/dL Hct (35.3-44.9) % MCV (83.0-100.0) fL MCH (28.0-33.3) pg MCHC (31.6-35.5) g/dL RDW (11.5-14.5) % Plt Count (140-400) K/mcL MPV (9.4-12.4) fL Immature Gran % (0-4) % Seg Neutrophils % % Lymphocytes % % Monocytes % % Eosinophils % % Basophils % % Neutrophils # (1.6-8.9) K/mcL Lymphocytes # (0.6-4.6) K/mcL Monocytes # (0.0-1.3) K/mcL Eosinophils # (0.0-0.6) K/mcL Basophils # (0.0-0.2) K/mcL Sodium (136-145) mEq/L Potassium (3.5-5.1) mEq/L Chloride (98-107) mEq/L Carbon Dioxide (23-29) mEq/L BUN (6-20) mg/dL Creatinine (0.60-1.20) mg/dL Est GFR ( Amer) (> 60) Est GFR (Non-Af Amer) (> 60) BUN/Creatinine Ratio (6-26) Glucose (70-105) mg/dL Calculated Osmolality (280-300) Calcium (8.6-10.3) mg/dL Total Bilirubin (0.3-1.0) mg/dL Direct Bilirubin (0.0-0.2) mg/dL Indirect Bilirubin (0.0-1.2) mg/dL AST (13-39) Units/L ALT (7-52) Units/L Alkaline Phosphatase (34-104) Units/L Serum Total Protein (6.4-8.9) g/dL Albumin (3.5-5.7) g/dL Globulin (2.4-3.5) g/dL Albumin/Globulin Ratio (1.1-2.2) Urine Color Yellow (Yellow) Urine Clarity Clear (Clear) Urine pH 6.5 (5.0-8.0) pH Units Ur Specific [place] 1.012 (1.010-1.025) Urine Protein Negative (Neg-Trace) mg/dL Urine Glucose (UA) Normal (Normal) mg/dL Urine Ketones Negative (Negative) mg/dL Urine Blood Negative (Negative) Urine Nitrite Negative (Negative) Urine Bilirubin Negative (Negative) Urine Urobilinogen Normal (Normal) mg/dL Ur Leukocyte Esterase Trace H (Negative) Urine Microscopic WBC 0-3 (0-3) per hpf Ur Squamous Epith Cells Few (None-Few) per lpf Ur Transition Epith Cell Few (None-Few) per hpf Urine Bacteria Few (None-Few) per hpf Urine Test Negative (Negative) Salicylates (15.0-30.0) mg/dL Urine Opiates Screen Negative (Gpehhh=055) ng/mL Ur Buprenorphine Scrn Negative (Cutoff=5) ng/mL Acetaminophen (10-20) mcg/mL Ur Barbiturates Screen Negative (Cehryp=637) ng/mL Ur Phencyclidine Scrn Negative (Cutoff=25) ng/mL Ur Amphetamines Screen Positive H (Ajjswg=8869) ng/mL U Benzodiazepines Scrn Negative (Znkpaa=316) ng/mL Urine Cocaine Screen Negative (Cutoff= 300) ng/mL U Marijuana (THC) Screen Negative (Cutoff = 50) ng/mL Ur Drug Screen Interp See Below Ethyl Alcohol (Less than 10) mg/dL - Radiology Data Radiology results reviewed: Yes I reviewed the patient's radiology results. Ribs w/Chest X-Ray 01/16/19 10:50 IMPRESSION: No evidence of rib fracture D/ / Vince Chou MD / Vince Chou MD Interpreting Provider: Vince Chou MD
[2019-01-16 11:29] LABS: Basophils % 0.3 %; Eosinophils # 0.4 K/mcL (0.0-0.6); Eosinophils % 6.3 %; Hemoglobin 11.8 g/dL (11.5-15.4); Immature Granulocytes % 0.1 % (0-4); Lymphocytes # 2.8 K/mcL (0.6-4.6); Lymphocytes % 40.8 %; Mean Corpuscular HGB Conc 33.7 g/dL (31.6-35.5); Mean Corpuscular Hemoglobin 28.1 pg (28.0-33.3); Mean Corpuscular Volume 83.3 fL (83.0-100.0); Mean Platelet Volume 9.4 fL (9.4-12.4); Monocytes % 13.8 %; Neutrophils # 2.7 K/mcL (1.6-8.9); Platelet Count 316 K/mcL (140-400); Red Cell Distribution Width 19.9 % (11.5-14.5); Segmented Neutrophils % 38.7 %; White Blood Count 6.9 K/mcL (4.3-11.1)
[2019-01-16 11:48] LABS: Acetaminophen < 10 mcg/mL (10-20); BUN/Creatinine Ratio 16 (6-26); Blood Urea Nitrogen 8 mg/dL (6-20); Calcium 8.3 mg/dL (8.6-10.3); Carbon Dioxide 24 mEq/L (23-29); Chloride 110 mEq/L (98-107); Ethanol < 10 mg/dL (Less than 10); Glucose 90 mg/dL (70-105); Osmolality,Calculated 286 (280-300); Potassium 3.4 mEq/L (3.5-5.1); Salicylate < 2.5 mg/dL (15.0-30.0); Sodium 139 mEq/L (136-145); eGFR For African Americans > 60 (> 60); eGFR For Non-African Americans > 60 (> 60)
[2019-01-16 11:49] LABS: Albumin/Globulin Ratio 1.3 (1.1-2.2); Bilirubin,Direct 0.2 mg/dL (0.0-0.2); Bilirubin,Indirect 0.4 mg/dL (0.0-1.2); Bilirubin,Total 0.6 mg/dL (0.3-1.0); Globulin 2.3 g/dL (2.4-3.5); Total Protein 5.3 g/dL (6.4-8.9)
[2019-01-16 12:17] LABS: Amphetamine Screen,Urine Positive ng/mL (Cutoff=1000); Barbiturate Screen,Urine Negative ng/mL (Cutoff=200); Benzodiazepines Screen,Urine Negative ng/mL (Cutoff=200); Cannabinoid Screen,Urine Negative ng/mL (Cutoff = 50); Cocaine Screen,Urine Negative ng/mL (Cutoff= 300); Opiate Screen,Urine Negative ng/mL (Cutoff=300); Phencyclidine Screen,Urine Negative ng/mL (Cutoff=25)
[2019-01-16 12:25] LABS: Bilirubin,Urine Negative (Negative); Blood,Urine Negative (Negative); Clarity,Urine Clear (Clear); Color,Urine Yellow (Yellow); Glucose,Urine (UA) Normal (Normal); Ketones,Urine Negative (Negative); Leukocyte Esterase,Urine Trace (Negative); Nitrite,Urine Negative (Negative); PH,Urine 6.5 pH Units (5.0-8.0); Protein,Urine Negative (Neg-Trace); Specific Gravity,Urine 1.012 (1.010-1.025); Urobilinogen,Urine Normal (Normal)
[2019-01-16 12:47] LABS: Bacteria,Urine Few per hpf (None-Few); Squamous Epithelial Cell,Urine Few per lpf (None-Few); Transitional Epi Cells,Urine Few per hpf (None-Few); WBC,Urine 0-3 per hpf (0-3)
[2019-01-16 14:36] LABS: INR 1.1; Prothrombin Time 12.4 Seconds (9.4-12.1)
[2019-01-16] MEDS ORDERED: Naloxone 0.4 MG/ML INJ IVP PRN (16:07)
[2019-01-16] MEDS ORDERED: *HR* LORazepam Oral Conc 2 MG/ML SL PRN (16:08)
--- NOTE | 2019-01-16 18:34 | Internal Med History&Physical ---
Date of Encounter: 01/16/19 Time of Encounter: 17:00 Internal Medicine - H&P: HPI Chief complaint: S/p fall today with possible suicidal ideation History of present illness: Ms. Abdi is a 43 year old female with pmh of endstage liver disease enrolled in hospice presenting with complaints of fall today. Patient says she was feeling frustrated at not being able to take care of herself so she took too much ativan and was loopy and went to the bathroom and where she fell and hurt her ribs. She came to the hospital for exrcruciating rib pain. An xray was done showing no rib fractures. Per her home health, she has reportedly been overdosing and taking her hospice medications inappropriately in a possible attempt to hurt herself. Psych has been consulted from the ER and she is pink slipped. She is currently in no acute distress and complains of rib pain. She is being admitted for pain control and suicidal ideation Past Med Surg Social Fam HX - Past Medical History Medical history: arthritis, cirrhosis, COPD, GERD, liver disease, osteoporosis, pulmonary embolus, other Additional medical history: alcoholic cirrhosis, anemia, malabsorption, pancreatitis, post-op blind loop syndrome, lymphadema, ileus, vit D def, FTT, WPW Psychiatric history: anxiety, ADHD, bipolar, depression, prior suicide attempt, previous psychiatric hospitalization - Past Surgical History Surgical History: appendectomy, cholecystectomy, ALMA/BSO Additional surgical history: gastric bypass, tubal ligation, cardiac ablation. multiple bowel surgeries - Social History Smoking Status: Current every day smoker Packs per day: 5 cigarettes/day Smokeless Tobacco Status: No Alcohol use: heavy, recent Drug use: none - Family History Father Adopted: No Family Member Ethnicity: Non- Living Status: Still Living Hx Family Cardiac Disorders: No Hx Family Respiratory Disorders: No Hx Family Cancer: No Hx Family GI Disorders: No Hx Family Endocrine Disorder: No Hx Family Neuromuscular Disorders: No Hx Family Neurologic Disorders: No Hx Family HEENT Disorders: No Hx Family Autoimmune Disorders: No Grandfather Family Member Ethnicity: Non- Living Status: Hx Family Cardiac Disorders: Yes (NM) Maternal Grandmother Family Member Ethnicity: Non- Living Status: Still Living Hx Family Cancer: Yes (Lung) Sister Family Member Ethnicity: Non- Living Status: Still Living Hx Family Cancer: Yes (Ovarian) Mother Adopted: No Family Member Ethnicity: Non- Living Status: Still Living Hx Family Cardiac Disorders: Yes (HTN) Hx Family Respiratory Disorders: No Hx Family Cancer: No Hx Family GI Disorders: No Hx Family Endocrine Disorder: No Hx Family Neuromuscular Disorders: No Hx Family Neurologic Disorders: No Hx Family HEENT Disorders: No Hx Family Autoimmune Disorders: No Internal Medicine - H&P: Meds Ergocalciferol (VITAMIN D2) [Vitamin D2] 1,000 unit PO 2XW 12/18/17 [History] Lipase/Protease/Amylase [Creon Dr 36,000 Units Capsule] 36,000 units PO TIDAC 12/18/17 [History] OLANZapine [Zyprexa] 20 mg PO HS 12/18/17 [History] Sucralfate [Carafate] 1 gm PO QID 12/18/17 [History] Vilazodone HCl [Viibryd] 40 mg PO DAILY 12/18/17 [History] Buprenorphine HCl 8 mg SL BID 03/22/18 [History] Dextroamphetamine/Amphetamine [Adderall 20 mg Tablet] 20 mg PO BID 03/22/18 [History] raNITIdine HCl [Zantac] 300 mg PO BID 03/22/18 [History] LORazepam Oral Conc [Ativan Oral Conc] 1 mg SL Q6HR PRN 5 Days #10 mls 01/08/19 [Rx] Omeprazole [PriLOSEC] 20 mg PO BIDAC #60 cap 01/08/19 [Rx] OxyCODONE Oral CONC [Oxycodone Oral Conc] 5 mg SL Q6HR PRN 6 Days #7 ml 01/08/19 [Rx] Allergy/AdvReac Type Severity Reaction Status Date / Time cephalexin Allergy Rash Verified 01/07/19 08:44 clindamycin Allergy Rash Verified 01/07/19 08:44 nalbuphine [From Nubain] AdvReac "didn't Verified 01/07/19 08:44 like the way it made me feel" All Systems PM: A 10-system review of systems was performed and is negative for pertinent findings except as documented above in the HPI. - Constitutional Constitutional: anorexia, no chills, no fever(s), no night sweats - EENT Eyes: no change in vision, no discharge, no pain, no photophobia Ears: no ear discharge, no ear pain, no tinnitus Nose, mouth and throat: no dysphagia, no nasal discharge, no neck pain, no sore throat - Cardiovascular Cardiovascular ROS IM: no chest pain, no diaphoresis, no dyspnea, no lightheadedness, no palpitations, no syncope - Respiratory Respiratory: no cough, no dyspnea, no wheezing, no excessive phlegm production - Gastrointestinal Gastrointestinal: no abdominal pain, no diarrhea, no hematemesis, no hematochez ia, no melena, no nausea, no vomiting - Genitourinary Genitourinary: no change in urinary stream, no dysuria, no flank pain, no hematuria - Musculoskeletal Musculoskeletal ROS IM: back pain, no numbness, no tingling - Integumentary Integumentary IM: no rash, no unusual bruising - Neurological Neurological ROS: no confusion, no convulsions, no focal weakness, no numbness, no tingling, no tremor(s) - Hematologic/Lymphatic Hematologic/Lymphatic: no easy bruising - Constitutional Vitals: Temp Pulse Resp BP Pulse Ox 98.4 F 71 16 118/75 100 01/16/19 10:23 01/16/19 11:02 01/16/19 11:02 01/16/19 11:02 01/16/19 11:02 General appearance: Present: cachectic Exam: NAD Rib pain - Head Head exam: Present: atraumatic, normocephalic - Eye Eye exam: Present: PERRL, conjuntiva pink, sclera anicteric Pupils: Present: PERRL - Neck Neck exam general surgery: Present: supple, trachea midline. Absent: lymphadenopathy - Respiratory Respiratory exam: Present: CTAB. Absent: accessory muscle use, rales, rhonchi, wheezes - Cardiovascular Cardiovascular exam: Present: RRR, +S1, +S2. Absent: diastolic murmur, gallop, rubs, systolic murmur - GI/Abdominal GI/Abdominal exam: Present: normal bowel sounds, soft, no peritoneal signs. Absent: distended, tenderness - Extremities Exam Extremities exam: Present: warm, radial pulses palpable and symmetrical. Absent: calf tenderness, cyanotic, pedal edema - Neurological Exam Neurological exam: Present: CN II-XII intact, oriented X3, no focal deficits. Absent: pronater drift, facial droop, speech deficit - Skin Skin exam: Present: dry, intact Internal Med - H&P Results - Labs CBC & Chem 7: 01/16/19 11:09 01/16/19 11:09 Labs: Short CBC 01/16/19 Range/Units 11:09 WBC 6.9 (4.3-11.1) K/mcL Hgb 11.8 (11.5-15.4) g/dL Hct 35.0 L (35.3-44.9) % Plt Count 316 (140-400) K/mcL Neutrophils # 2.7 (1.6-8.9) K/mcL BMP 01/16/19 11:09 Sodium 139 Potassium 3.4 L Chloride 110 H Carbon Dioxide 24 BUN 8 Creatinine 0.50 L Glucose 90 Calcium 8.3 L Liver Function 01/16/19 Range/Units 11:09 Total Bilirubin 0.6 (0.3-1.0) mg/dL Direct Bilirubin 0.2 (0.0-0.2) mg/dL AST 26 (13-39) Units/L ALT 26 (7-52) Units/L Alkaline Phosphatase 117 H (34-104) Units/L Albumin 3.0 L (3.5-5.7) g/dL Urine 01/16/19 Range/Units 11:46 Urine Color Yellow (Yellow) Urine Clarity Clear (Clear) Urine pH 6.5 (5.0-8.0) pH Units Ur Specific [place] 1.012 (1.010-1.025) Urine Protein Negative (Neg-Trace) mg/dL Urine Glucose (UA) Normal (Normal) mg/dL - Impressions ITS Impressions Ribs w/Chest X-Ray 01/16/19 10:50 IMPRESSION: No evidence of rib fracture D/ / Vince Chou MD / Vince Chou MD Interpreting Provider: Vince Chou MD - Assessment and Plan (1) Suicidal ideation Current Visit: Yes Status: Acute Assessment and plan: Pt came in with possible ativan overdose and abuse of hospice meds Psychiatry consulted. [place] slipped. Monitor (2) Hospice care Current Visit: Yes Status: Acute Assessment and plan: Resume hospice on discharge (3) Rib pain on left side Current Visit: Yes Status: Acute Assessment and plan: No acute fractures on xray. Pain control (4) Liver cirrhosis Current Visit: Yes Status: Acute Assessment and plan: Endstage. continue hospice meds Qualifiers: Qualified Code(s): K74.60 - Unspecified cirrhosis of liver (5) Hypokalemia Current Visit: Yes Status: Acute (6) DVT prophylaxis Current Visit: Yes Status: Acute - Time Spent With Patient Total time spent is greater than 50% in coordination of care (as documented) at patient's floor/unit and/or counseling patient:
[2019-01-16] MEDS ORDERED: Ondansetron 4 MG/2 ML VIAL IVP PRN (18:46)
[2019-01-16] MEDS: Potassium Chloride Elixir 20 MEQ/15 ML UDC PO SCH ×2 (20:41→21:33)
[2019-01-16] MEDS ORDERED: *HR* Buprenorphine HCl 8 MG TAB.SUBL SL SCH (21:00)
[2019-01-16] MEDS ORDERED: OLANZapine 10 MG TAB.RAPDIS PO SCH (21:00)
[2019-01-16] MEDS: Famotidine 20 MG TABLET PO SCH (21:35)
[2019-01-17 02:08] LABS: Basophils % 0.6 %; Eosinophils # 0.5 K/mcL (0.0-0.6); Eosinophils % 6.9 %; Hematocrit 31.4 % (35.3-44.9); Hemoglobin 10.6 g/dL (11.5-15.4); Immature Granulocytes % 0.3 % (0-4); Lymphocytes # 2.8 K/mcL (0.6-4.6); Lymphocytes % 39.9 %; Mean Corpuscular HGB Conc 33.8 g/dL (31.6-35.5); Mean Corpuscular Hemoglobin 27.7 pg (28.0-33.3); Mean Platelet Volume 8.8 fL (9.4-12.4); Monocytes # 0.9 K/mcL (0.0-1.3); Monocytes % 12.7 %; Neutrophils # 2.8 K/mcL (1.6-8.9); Platelet Count 310 K/mcL (140-400); Red Blood Count 3.83 M/mcL (3.82-4.97); Red Cell Distribution Width 19.9 % (11.5-14.5); Segmented Neutrophils % 39.6 %
[2019-01-17 02:31] LABS: Alanine Aminotransferase 22 Units/L (7-52); Albumin 2.3 g/dL (3.5-5.7); Albumin/Globulin Ratio 1.2 (1.1-2.2); Alkaline Phosphatase 104 Units/L (34-104); Aspartate Amino Transferase 24 Units/L (13-39); BUN/Creatinine Ratio 20 (6-26); Bilirubin,Total 0.5 mg/dL (0.3-1.0); Blood Urea Nitrogen 9 mg/dL (6-20); Calcium 7.6 mg/dL (8.6-10.3); Carbon Dioxide 22 mEq/L (23-29); Chloride 111 mEq/L (98-107); Globulin 1.9 g/dL (2.4-3.5); Glucose 97 mg/dL (70-105); Magnesium 1.9 mg/dL (1.6-2.6); Osmolality,Calculated 291 (280-300); Phosphorous 2.9 mg/dL (2.7-4.5); Potassium 3.5 mEq/L (3.5-5.1); Sodium 141 mEq/L (136-145); Total Protein 4.2 g/dL (6.4-8.9); eGFR For African Americans > 60 (> 60); eGFR For Non-African Americans > 60 (> 60)
[2019-01-17] MEDS: Famotidine 20 MG TABLET PO SCH (06:38)
[2019-01-17] MEDS ORDERED: Cholecalciferol (D-3) 1,000 UNIT (25MCG) TABLET PO SCH (09:00)
[2019-01-17] MEDS ORDERED: (Vilazodone Hcl [Viibryd] 40 MG) PO SCH (09:00)
--- NOTE | 2019-01-17 10:07 | Consult Note ---
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 History of Present Illness Requesting Physician: Patrick Meneses History of present illness: Ms. Abdi is a 43 year old female with past medical history of end-stage liver disease recently enrolled in hospice who was presented to the ED after home health reported patient overdosing on her medication. Patient is frustrated this morning and states that she had no intention of suicide ideation or homicidal ideation. She does report taking 2-3 times the dose of her Ativan as well as pain medication. Reports that the current dose of pain medication is not helping her symptom and she has high tolerance to pain medication given her chronic history of alcohol abuse. She reports that a week and a half ago due to frustration she drank a bottle of vodka not for ending her life but to relieve her pain. She states that she knows she does not have very much longitudinally lives but wants to continue to live pain-free. She is upset at the home health agency stating that they are supposed to be on her side and she feels betrayed and humiliated because they reported her. She does report previous history of taking more of her pain. Medication than prescribed stated if she was postictal 1-2 she would take 6 at a time and now that she has Shaw II these medications feels that she should be able to take down as she desires. Reports that she does have a good support system including outpatient counseling. At this time she is complaining of chronic abdominal pain denying fever, chills, shortness of breath, chest pain, suicide or homicide ideation. CC: Patrick Thomasye Past Med Surg Social Fam HX - Past Medical History Medical history: arthritis, cirrhosis, COPD, GERD, liver disease, osteoporosis, pulmonary embolus, other - Past Surgical History Surgical History: appendectomy, cholecystectomy, ALMA/BSO - Social History Smoking Status: Current every day smoker Smokeless Tobacco Status: No Alcohol use: heavy, recent Drug use: none - Family History Father Adopted: No Family Member Ethnicity: Non- Living Status: Still Living Hx Family Cardiac Disorders: No Hx Family Respiratory Disorders: No Hx Family Cancer: No Hx Family GI Disorders: No Hx Family Endocrine Disorder: No Hx Family Neuromuscular Disorders: No Hx Family Neurologic Disorders: No Hx Family HEENT Disorders: No Hx Family Autoimmune Disorders: No Grandfather Family Member Ethnicity: Non- Living Status: Hx Family Cardiac Disorders: Yes (SD) Maternal Grandmother Family Member Ethnicity: Non- Living Status: Still Living Hx Family Cancer: Yes (Lung) Sister Family Member Ethnicity: Non- Living Status: Still Living Hx Family Cancer: Yes (Ovarian) Mother Adopted: No Family Member Ethnicity: Non- Living Status: Still Living Hx Family Cardiac Disorders: Yes (HTN) Hx Family Respiratory Disorders: No Hx Family Cancer: No Hx Family GI Disorders: No Hx Family Endocrine Disorder: No Hx Family Neuromuscular Disorders: No Hx Family Neurologic Disorders: No Hx Family HEENT Disorders: No Hx Family Autoimmune Disorders: No Medications & Allergies Lipase/Protease/Amylase [Virgilio Dr 36,000 Units Capsule] 36,000 units PO TIDAC 12/18/17 [History] OLANZapine [Zyprexa] 20 mg PO HS 12/18/17 [History] Sucralfate [Carafate] 1 gm PO BID 12/18/17 [History] Vilazodone HCl [Viibryd] 40 mg PO DAILY 12/18/17 [History] Buprenorphine HCl 8 mg SL BID 03/22/18 [History] Dextroamphetamine/Amphetamine [Adderall 20 mg Tablet] 20 mg PO BID 03/22/18 [History] raNITIdine HCl [Zantac] 300 mg PO BID 03/22/18 [History] LORazepam Oral Conc [Ativan Oral Conc] 1 mg SL Q6HR PRN 5 Days #10 mls 01/08/19 [Rx] Omeprazole [PriLOSEC] 20 mg PO BIDAC #60 cap 01/08/19 [Rx] OxyCODONE Oral CONC [Oxycodone Oral Conc] 5 mg SL Q6HR PRN 6 Days #7 ml 01/08/19 [Rx] Cholecalciferol (D-3) [Vitamin D] 1,000 unit PO DAILY 01/17/19 [History] Allergy/AdvReac Type Severity Reaction Status Date / Time cephalexin Allergy Rash Verified 01/07/19 08:44 clindamycin Allergy Rash Verified 01/07/19 08:44 nalbuphine [From Nubain] AdvReac "didn't Verified 01/07/19 08:44 [address] it made me feel" Review of Systems Constitutional: Denies: fever, chills Eyes: Denies: eye pain Ears, Nose, Throat: Denies: congestion Cardiovascular: Denies: chest pain Respiratory: Denies: cough, dyspnea Gastrointestinal: Reports: abdominal pain Genitourinary female: Denies: frequency Musculoskeletal: Reports: myalgia Integumentary: Denies: rash Neurological: Denies: headache Psychiatric: Reports: depression, other (Geltz). Denies: suicidal ideation, homicidal ideation Psychiatry Exam - Constitutional Vitals: Temp Pulse Resp BP Pulse Ox 98.2 F 93 16 93/65 99 01/17/19 06:23 01/17/19 06:23 01/17/19 06:23 01/17/19 06:23 01/17/19 06:23 General appearance: disheveled - Musculoskeletal Gait: normal Station: stooped Strength & Tone: normal for patient - Psychiatric Patient Orientation: Yes Person, Yes Time, Yes Place Level of alertness: Alert Behavior: agitated, talkative Psychomotor activity: Slowed Eye Contact: Minimal Contact Mood Description: Angry Affect description: congruent with mood Speech Volume: Loud Speech pattern: normal rate Language & Vocabulary: limited Thought Process: Tangential Thought Content: No Suicidal ideation, No Homicidal ideation Perceptual Disturbances: Yes Reacting to internal stimuli Attention Span Ability: Capable of Focused Attention Memory Description: Immediate Intact Patient Reliability: Questionable Historian Fund of knowledge: Yes average Intelligence Estimate: Average Judgment: Fair Insight: Partial Results - Drug Levels and Toxicology Drug Levels and Toxicology: Drug Levels and Toxicity 01/16/19 01/16/19 11:09 11:46 Urine Opiates Screen Negative Acetaminophen < 10 L Ur Barbiturates Screen Negative Ur Phencyclidine Scrn Negative Ur Amphetamines Screen Positive H U Benzodiazepines Scrn Negative Urine Cocaine Screen Negative U Marijuana (THC) Screen Negative Ethyl Alcohol < 10 - Labs Labs: Laboratory Last Values WBC 7.0 K/mcL (4.3-11.1) 01/17/19 01:40 RBC 3.83 M/mcL (3.82-4.97) 01/17/19 01:40 Hgb 10.6 g/dL (11.5-15.4) L 01/17/19 01:40 Hct 31.4 % (35.3-44.9) L 01/17/19 01:40 MCV 82.0 fL (83.0-100.0) L 01/17/19 01:40 MCH 27.7 pg (28.0-33.3) L 01/17/19 01:40 MCHC 33.8 g/dL (31.6-35.5) 01/17/19 01:40 RDW 19.9 % (11.5-14.5) H 01/17/19 01:40 Plt Count 310 K/mcL (140-400) 01/17/19 01:40 MPV 8.8 fL (9.4-12.4) L 01/17/19 01:40 Immature Gran % 0.3 % (0-4) 01/17/19 01:40 Seg Neutrophils % 39.6 % 01/17/19 01:40 Lymphocytes % 39.9 % 01/17/19 01:40 Monocytes % 12.7 % 01/17/19 01:40 Eosinophils % 6.9 % 01/17/19 01:40 Basophils % 0.6 % 01/17/19 01:40 Neutrophils # 2.8 K/mcL (1.6-8.9) 01/17/19 01:40 Lymphocytes # 2.8 K/mcL (0.6-4.6) 01/17/19 01:40 Monocytes # 0.9 K/mcL (0.0-1.3) 01/17/19 01:40 Eosinophils # 0.5 K/mcL (0.0-0.6) 01/17/19 01:40 Basophils # 0.0 K/mcL (0.0-0.2) 01/17/19 01:40 PT 12.4 Seconds (9.4-12.1) H 01/16/19 13:55 INR 1.1 01/16/19 13:55 Sodium 141 mEq/L (136-145) 01/17/19 01:40 Potassium 3.5 mEq/L (3.5-5.1) 01/17/19 01:40 Chloride 111 mEq/L (98-107) H 01/17/19 01:40 Carbon Dioxide 22 mEq/L (23-29) L 01/17/19 01:40 BUN 9 mg/dL (6-20) 01/17/19 01:40 Creatinine 0.44 mg/dL (0.60-1.20) L 01/17/19 01:40 Est GFR ( Amer) > 60 (> 60) 01/17/19 01:40 Est GFR (Non-Af Amer) > 60 (> 60) 01/17/19 01:40 BUN/Creatinine Ratio 20 (6-26) 01/17/19 01:40 Glucose 97 mg/dL (70-105) 01/17/19 01:40 Calculated Osmolality 291 (280-300) 01/17/19 01:40 Calcium 7.6 mg/dL (8.6-10.3) L 01/17/19 01:40 Phosphorus 2.9 mg/dL (2.7-4.5) 01/17/19 01:40 Magnesium 1.9 mg/dL (1.6-2.6) 01/17/19 01:40 Total Bilirubin 0.5 mg/dL (0.3-1.0) 01/17/19 01:40 Direct Bilirubin 0.2 mg/dL (0.0-0.2) 01/16/19 11:09 Indirect Bilirubin 0.4 mg/dL (0.0-1.2) 01/16/19 11:09 AST 24 Units/L (13-39) 01/17/19 01:40 ALT 22 Units/L (7-52) 01/17/19 01:40 Alkaline Phosphatase 104 Units/L (34-104) 01/17/19 01:40 Serum Total Protein 4.2 g/dL (6.4-8.9) L 01/17/19 01:40 Albumin 2.3 g/dL (3.5-5.7) L 01/17/19 01:40 Globulin 1.9 g/dL (2.4-3.5) L 01/17/19 01:40 Albumin/Globulin Ratio 1.2 (1.1-2.2) 01/17/19 01:40 Urine Color Yellow (Yellow) 01/16/19 11:46 Urine Clarity Clear (Clear) 01/16/19 11:46 Urine pH 6.5 pH Units (5.0-8.0) 01/16/19 11:46 Ur Specific [place] 1.012 (1.010-1.025) 01/16/19 11:46 Urine Protein Negative mg/dL (Neg-Trace) 01/16/19 11:46 Urine Glucose (UA) Normal mg/dL (Normal) 01/16/19 11:46 Urine Ketones Negative mg/dL (Negative) 01/16/19 11:46 Urine Blood Negative (Negative) 01/16/19 11:46 Urine Nitrite Negative (Negative) 01/16/19 11:46 Urine Bilirubin Negative (Negative) 01/16/19 11:46 Urine Urobilinogen Normal mg/dL (Normal) 01/16/19 11:46 Ur Leukocyte Esterase Trace (Negative) H 01/16/19 11:46 Urine Microscopic WBC 0-3 per hpf (0-3) 01/16/19 11:46 Ur Squamous Epith Cells Few per lpf (None-Few) 01/16/19 11:46 Ur Transition Epith Cell Few per hpf (None-Few) 01/16/19 11:46 Urine Bacteria Few per hpf (None-Few) 01/16/19 11:46 Urine Test Negative (Negative) 01/16/19 11:46 Salicylates < 2.5 mg/dL (15.0-30.0) L 01/16/19 11:09 Urine Opiates Screen Negative ng/mL (Nkwtww=755) 01/16/19 11:46 Ur Buprenorphine Scrn Negative ng/mL (Cutoff=5) 01/16/19 11:46 Acetaminophen < 10 mcg/mL (10-20) L 01/16/19 11:09 Ur Barbiturates Screen Negative ng/mL (Okgtta=788) 01/16/19 11:46 Ur Phencyclidine Scrn Negative ng/mL (Cutoff=25) 01/16/19 11:46 Ur Amphetamines Screen Positive ng/mL (Yayjso=8315) H 01/16/19 11:46 U Benzodiazepines Scrn Negative ng/mL (Itowuh=640) 01/16/19 11:46 Urine Cocaine Screen Negative ng/mL (Cutoff= 300) 01/16/19 11:46 U Marijuana (THC) Screen Negative ng/mL (Cutoff = 50) 01/16/19 11:46 Ur Drug Screen Interp See Below 01/16/19 11:46 Ethyl Alcohol < 10 mg/dL (Less than 10) 01/16/19 11:09 - Impressions Impressions Ribs w/Chest X-Ray 01/16/19 10:50 IMPRESSION: No evidence of rib fracture D/ / Vince Chou MD / Vince Chou MD Interpreting Provider: Vince Chou MD Consult Discharge Plan - Plan Referrals: NONE,PCP [Primary Care Provider] -
--- NOTE | 2019-01-17 10:08 | Consult Note ---
Date of Encounter: 01/17/19 Time of Encounter: 09:40 History of Present Illness Patient: known to practice within the last 3 years Requesting Physician: Patrick Meneses Reason for consult: overtaking ativan History of present illness: Ms. Abdi is a 43 year old female with pmh of endstage liver disease enrolled in hospice presenting with complaints of fall today. Patient says she was feeling frustrated at not being able to take care of herself so she took too much ativan and was loopy and went to the bathroom and where she fell and hurt her ribs. She came to the hospital for exrcruciating rib pain. An xray was done showing no rib fractures. Per her home health, she has reportedly been overdosing and taking her hospice medications inappropriately in a possible attempt to hurt herself. Psych has been consulted from the ER and she is pink slipped. She is currently in no acute distress and complains of rib pain. She was being admitted for pain control. This morning she denies that she was trying to harm herself. She does acknowledge that she took too much Ativan because she was not feeling well because of pain. She said that her different doctors have been having a difficult time controlling her pain. She does report that she feels sad about her poor quality of life and her prognosis but she denies any active suicidal ideations, intention, or plan. She says she wants to feel better. She is hopeful towards having some improvement in her family relations. Diagnosis: major depressive disorder recurrent, moderate, without psychotic features Recommendations: Patient currently denies suicidal thoughts, ideations, or plans. She is future oriented. At this time she does not meet criteria for involuntary psychiatric hospitalization and she does not wish to be in the hospital. From a psychiatric standpoint she can follow up with Dr. Hutchison and her therapist for counseling center. She was agreeable to me calling Dr. Hutchison when discussing her care with her. I would recommend she be titrated down off her Ativan and stop the stimulant given her history of substance use disorder and that these 2 medications are posing and action. CC: Patrick Meneses Past Med Surg Social Fam HX - Past Medical History Medical history: arthritis, cirrhosis, COPD, GERD, liver disease, osteoporosis, pulmonary embolus, other - Past Psychiatric History Psychiatric history: Reports: anxiety, depression, prior suicide attempt, previous psychiatric hospitalization Past psychiatric history details: Previous suicide attempt via overdose; has been admitted to in 2016 and 2017. Family psychiatric history: No Family History of Suicide: None - Past Surgical History Surgical History: appendectomy, cholecystectomy, ALMA/BSO - Social History Smoking Status: Current every day smoker Smokeless Tobacco Status: No Alcohol use: heavy, recent Drug use: none - Family History Father Adopted: No Family Member Ethnicity: Non- Living Status: Still Living Hx Family Cardiac Disorders: No Hx Family Respiratory Disorders: No Hx Family Cancer: No Hx Family GI Disorders: No Hx Family Endocrine Disorder: No Hx Family Neuromuscular Disorders: No Hx Family Neurologic Disorders: No Hx Family HEENT Disorders: No Hx Family Autoimmune Disorders: No Grandfather Family Member Ethnicity: Non- Living Status: Hx Family Cardiac Disorders: Yes (NH) Maternal Grandmother Family Member Ethnicity: Non- Living Status: Still Living Hx Family Cancer: Yes (Lung) Sister Family Member Ethnicity: Non- Living Status: Still Living Hx Family Cancer: Yes (Ovarian) Mother Adopted: No Family Member Ethnicity: Non- Living Status: Still Living Hx Family Cardiac Disorders: Yes (HTN) Hx Family Respiratory Disorders: No Hx Family Cancer: No Hx Family GI Disorders: No Hx Family Endocrine Disorder: No Hx Family Neuromuscular Disorders: No Hx Family Neurologic Disorders: No Hx Family HEENT Disorders: No Hx Family Autoimmune Disorders: No Medications & Allergies Lipase/Protease/Amylase [Creon Dr 36,000 Units Capsule] 36,000 units PO TIDAC 12/18/17 [History] OLANZapine [Zyprexa] 20 mg PO HS 12/18/17 [History] Sucralfate [Carafate] 1 gm PO BID 12/18/17 [History] Vilazodone HCl [Viibryd] 40 mg PO DAILY 12/18/17 [History] Buprenorphine HCl 8 mg SL BID 03/22/18 [History] Dextroamphetamine/Amphetamine [Adderall 20 mg Tablet] 20 mg PO BID 03/22/18 [History] raNITIdine HCl [Zantac] 300 mg PO BID 03/22/18 [History] LORazepam Oral Conc [Ativan Oral Conc] 1 mg SL Q6HR PRN 5 Days #10 mls 01/08/19 [Rx] Omeprazole [PriLOSEC] 20 mg PO BIDAC #60 cap 01/08/19 [Rx] OxyCODONE Oral CONC [Oxycodone Oral Conc] 5 mg SL Q6HR PRN 6 Days #7 ml 01/08/19 [Rx] Cholecalciferol (D-3) [Vitamin D] 1,000 unit PO DAILY 01/17/19 [History] Allergy/AdvReac Type Severity Reaction Status Date / Time cephalexin Allergy Rash Verified 01/07/19 08:44 clindamycin Allergy Rash Verified 01/07/19 08:44 nalbuphine [From Nubain] AdvReac "didn't Verified 01/07/19 08:44 like the way it made me feel" Review of Systems Constitutional: Reports: weakness Eyes: Denies: eye pain Ears, Nose, Throat: Denies: ear pain Cardiovascular: Reports: dyspnea on exertion Respiratory: Reports: dyspnea Gastrointestinal: Reports: nausea Genitourinary female: Denies: urgency Musculoskeletal: Reports: back pain, joint pain, myalgia Integumentary: Denies: rash Neurological: Reports: weakness Psychiatric: Reports: depression. Denies: suicidal ideation, homicidal ideation, auditory hallucinations, visual hallucinations Endocrine: Reports: fatigue Hematologic/Lymphatic: Denies: easy bleeding Allergic/Immunologic: Denies: facial swelling Psychiatry Exam - Constitutional Vitals: Temp Pulse Resp BP Pulse Ox 98.2 F 93 16 93/65 99 01/17/19 06:23 01/17/19 06:23 01/17/19 06:23 01/17/19 06:23 01/17/19 06:23 General appearance: age & developmentally appropriate, thin - Musculoskeletal Gait: other (Sitting up in chair) Station: relaxed Strength & Tone: mild weakness - Psychiatric Patient Orientation: Yes Person, Yes Time, Yes Place, Yes Circumstance Level of alertness: Alert Behavior: calm Psychomotor activity: Normal Eye Contact: Maintains Eye Contact Mood Description: Euthymic/stable Patient description of mood: ok Affect description: constricted Speech Volume: Normal Speech pattern: normal rate, normal rhythm, normal tone, fluent, spontaneous Language & Vocabulary: consistent with education Thought Process: Linear, Goal Oriented Thought Content: No Suicidal ideation, No Homicidal ideation, No Overt delusions Perceptual Disturbances: No Auditory hallucinations, No Visual hallucinations Attention Span Ability: Capable of Focused Attention Memory Description: Grossly Intact Patient Reliability: Reliable Historian Fund of knowledge: Yes abstraction ability, Yes aware of current events Intelligence Estimate: Average Judgment: Good Insight: Full Results - Drug Levels and Toxicology Drug Levels and Toxicology: Drug Levels and Toxicity 01/16/19 01/16/19 11:09 11:46 Urine Opiates Screen Negative Acetaminophen < 10 L Ur Barbiturates Screen Negative Ur Phencyclidine Scrn Negative Ur Amphetamines Screen Positive H U Benzodiazepines Scrn Negative Urine Cocaine Screen Negative U Marijuana (THC) Screen Negative Ethyl Alcohol < 10 - Labs Labs: Laboratory Last Values WBC 7.0 K/mcL (4.3-11.1) 01/17/19 01:40 RBC 3.83 M/mcL (3.82-4.97) 01/17/19 01:40 Hgb 10.6 g/dL (11.5-15.4) L 01/17/19 01:40 Hct 31.4 % (35.3-44.9) L 01/17/19 01:40 MCV 82.0 fL (83.0-100.0) L 01/17/19 01:40 MCH 27.7 pg (28.0-33.3) L 01/17/19 01:40 MCHC 33.8 g/dL (31.6-35.5) 01/17/19 01:40 RDW 19.9 % (11.5-14.5) H 01/17/19 01:40 Plt Count 310 K/mcL (140-400) 01/17/19 01:40 MPV 8.8 fL (9.4-12.4) L 01/17/19 01:40 Immature Gran % 0.3 % (0-4) 01/17/19 01:40 Seg Neutrophils % 39.6 % 01/17/19 01:40 Lymphocytes % 39.9 % 01/17/19 01:40 Monocytes % 12.7 % 01/17/19 01:40 Eosinophils % 6.9 % 01/17/19 01:40 Basophils % 0.6 % 01/17/19 01:40 Neutrophils # 2.8 K/mcL (1.6-8.9) 01/17/19 01:40 Lymphocytes # 2.8 K/mcL (0.6-4.6) 01/17/19 01:40 Monocytes # 0.9 K/mcL (0.0-1.3) 01/17/19 01:40 Eosinophils # 0.5 K/mcL (0.0-0.6) 01/17/19 01:40 Basophils # 0.0 K/mcL (0.0-0.2) 01/17/19 01:40 PT 12.4 Seconds (9.4-12.1) H 01/16/19 13:55 INR 1.1 01/16/19 13:55 Sodium 141 mEq/L (136-145) 01/17/19 01:40 Potassium 3.5 mEq/L (3.5-5.1) 01/17/19 01:40 Chloride 111 mEq/L (98-107) H 01/17/19 01:40 Carbon Dioxide 22 mEq/L (23-29) L 01/17/19 01:40 BUN 9 mg/dL (6-20) 01/17/19 01:40 Creatinine 0.44 mg/dL (0.60-1.20) L 01/17/19 01:40 Est GFR ( Amer) > 60 (> 60) 01/17/19 01:40 Est GFR (Non-Af Amer) > 60 (> 60) 01/17/19 01:40 BUN/Creatinine Ratio 20 (6-26) 01/17/19 01:40 Glucose 97 mg/dL (70-105) 01/17/19 01:40 Calculated Osmolality 291 (280-300) 01/17/19 01:40 Calcium 7.6 mg/dL (8.6-10.3) L 01/17/19 01:40 Phosphorus 2.9 mg/dL (2.7-4.5) 01/17/19 01:40 Magnesium 1.9 mg/dL (1.6-2.6) 01/17/19 01:40 Total Bilirubin 0.5 mg/dL (0.3-1.0) 01/17/19 01:40 Direct Bilirubin 0.2 mg/dL (0.0-0.2) 01/16/19 11:09 Indirect Bilirubin 0.4 mg/dL (0.0-1.2) 01/16/19 11:09 AST 24 Units/L (13-39) 01/17/19 01:40 ALT 22 Units/L (7-52) 01/17/19 01:40 Alkaline Phosphatase 104 Units/L (34-104) 01/17/19 01:40 Serum Total Protein 4.2 g/dL (6.4-8.9) L 01/17/19 01:40 Albumin 2.3 g/dL (3.5-5.7) L 01/17/19 01:40 Globulin 1.9 g/dL (2.4-3.5) L 01/17/19 01:40 Albumin/Globulin Ratio 1.2 (1.1-2.2) 01/17/19 01:40 Urine Color Yellow (Yellow) 01/16/19 11:46 Urine Clarity Clear (Clear) 01/16/19 11:46 Urine pH 6.5 pH Units (5.0-8.0) 01/16/19 11:46 Ur Specific Lena 1.012 (1.010-1.025) 01/16/19 11:46 Urine Protein Negative mg/dL (Neg-Trace) 01/16/19 11:46 Urine Glucose (UA) Normal mg/dL (Normal) 01/16/19 11:46 Urine Ketones Negative mg/dL (Negative) 01/16/19 11:46 Urine Blood Negative (Negative) 01/16/19 11:46 Urine Nitrite Negative (Negative) 01/16/19 11:46 Urine Bilirubin Negative (Negative) 01/16/19 11:46 Urine Urobilinogen Normal mg/dL (Normal) 01/16/19 11:46 Ur Leukocyte Esterase Trace (Negative) H 01/16/19 11:46 Urine Microscopic WBC 0-3 per hpf (0-3) 01/16/19 11:46 Ur Squamous Epith Cells Few per lpf (None-Few) 01/16/19 11:46 Ur Transition Epith Cell Few per hpf (None-Few) 01/16/19 11:46 Urine Bacteria Few per hpf (None-Few) 01/16/19 11:46 Urine Test Negative (Negative) 01/16/19 11:46 Salicylates < 2.5 mg/dL (15.0-30.0) L 01/16/19 11:09 Urine Opiates Screen Negative ng/mL (Dunsiz=613) 01/16/19 11:46 Ur Buprenorphine Scrn Negative ng/mL (Cutoff=5) 01/16/19 11:46 Acetaminophen < 10 mcg/mL (10-20) L 01/16/19 11:09 Ur Barbiturates Screen Negative ng/mL (Aybedr=111) 01/16/19 11:46 Ur Phencyclidine Scrn Negative ng/mL (Cutoff=25) 01/16/19 11:46 Ur Amphetamines Screen Positive ng/mL (Cmojpf=7982) H 01/16/19 11:46 U Benzodiazepines Scrn Negative ng/mL (Bwoglz=138) 01/16/19 11:46 Urine Cocaine Screen Negative ng/mL (Cutoff= 300) 01/16/19 11:46 U Marijuana (THC) Screen Negative ng/mL (Cutoff = 50) 01/16/19 11:46 Ur Drug Screen Interp See Below 01/16/19 11:46 Ethyl Alcohol < 10 mg/dL (Less than 10) 01/16/19 11:09 - Impressions Impressions Ribs w/Chest X-Ray 01/16/19 10:50 IMPRESSION: No evidence of rib fracture D/ / Vince Chou MD / Vince Chou MD Interpreting Provider: Vince Chou MD Consult Discharge Plan - Plan Referrals: NONE,PCP [Primary Care Provider] -
--- NOTE | 2019-01-17 10:08 | Electrocardiograph Report ---
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 inferolateral leads, consider ischemia, correlate clinically Baseline wander in lead(s) V2 Electronically Signed On 01-17-2019 10:07:16 EDT by Shawn Lennon
[2019-01-17 11:05] VITALS: BP 112/78
--- NOTE | 2019-01-17 11:43 | Discharge Summary ---
Date of Encounter: 01/17/19 Time of Encounter: 10:00 - Discharge Diagnosis (1) Suicidal ideation Priority: Primary Status: Acute Assessment and Plan: 43 year old female with pmh of endstage liver disease enrolled [facility] hospice [facility] with complaints of fall today. Patient says she was feeling frustrated at not being able to take care of herself so she took too much ativan and was loopy and went to the bathroom and where she fell and hurt her ribs. She came to the hospital for exrcruciating rib pain. An xray was done showing no rib fractures. Per her home health, she has reportedly been overdosing and taking her hospice medications inappropriately in a possible attempt to hurt herself. Psych has been consulted from the ER and she is pink slipped. She is currently in no acute distress and complains of rib pain. She is being admitted for pain control and suicidal ideation She was assessed with suicidal ideation and depression and fall. She was seen by psych and determined to have no active suicidal ideation. counseled to not take adderal and ativan together and to consider tapering off these meds as her hospice program allows. She was discharged home in a stable condition (2) Hospice care Priority: Primary Status: Acute (3) Rib pain on left side Priority: Primary Status: Acute (4) Liver cirrhosis Priority: Primary Status: Acute Qualifiers: Qualified Code(s): K74.60 - Unspecified cirrhosis of liver (5) Hypokalemia Priority: Primary Status: Acute (6) DVT prophylaxis Priority: Primary Status: Acute Hospital course: Ms. Abdi is a 43 year old female - Time Spent with Patient Total time spent providing and/or coordinating discharge services: - Discharge Medications Prescriptions: Continued Lipase/Protease/Amylase [Virgilio Ramos 36,000 Units Capsule] 36,000 units PO TIDAC OLANZapine [Zyprexa] 20 mg PO HS Sucralfate [Carafate] 1 gm PO BID Vilazodone HCl [Viibryd] 40 mg PO DAILY Buprenorphine HCl 8 mg SL BID raNITIdine HCl [Zantac] 300 mg PO BID LORazepam Oral Conc [Ativan Oral Conc] 1 mg SL Q6HR PRN 5 Days #10 mls PRN Reason: Anxiety OxyCODONE Oral CONC [Oxycodone Oral Conc] 5 mg SL Q6HR PRN 6 Days #7 ml PRN Reason: Moderate Pain Omeprazole [PriLOSEC] 20 mg PO BIDAC #60 cap Cholecalciferol (D-3) [Vitamin D] 1,000 unit PO DAILY Discontinued Dextroamphetamine/Amphetamine [Adderall 20 mg Tablet] 20 mg PO BID Home Medications: Lipase/Protease/Amylase [Virgilio Ramos 36,000 Units Capsule] 36,000 units PO TIDAC 12/18/17 [History] OLANZapine [Zyprexa] 20 mg PO HS 12/18/17 [History] Sucralfate [Carafate] 1 gm PO BID 12/18/17 [History] Vilazodone HCl [Viibryd] 40 mg PO DAILY 12/18/17 [History] Buprenorphine HCl 8 mg SL BID 03/22/18 [History] raNITIdine HCl [Zantac] 300 mg PO BID 03/22/18 [History] LORazepam Oral Conc [Ativan Oral Conc] 1 mg SL Q6HR PRN 5 Days #10 mls 01/08/19 [Rx] Omeprazole [PriLOSEC] 20 mg PO BIDAC #60 cap 01/08/19 [Rx] OxyCODONE Oral CONC [Oxycodone Oral Conc] 5 mg SL Q6HR PRN 6 Days #7 ml 01/08/19 [Rx] Cholecalciferol (D-3) [Vitamin D] 1,000 unit PO DAILY 01/17/19 [History] Allergies/Adverse Reactions: Allergy/AdvReac Type Severity Reaction Status Date / Time cephalexin Allergy Rash Verified 01/07/19 08:44 clindamycin Allergy Rash Verified 01/07/19 08:44 nalbuphine [From Nubain] AdvReac "didn't Verified 01/07/19 08:[address] it made me feel" Date of admission: 01/16/19 15:19 Primary care physician: PCP NONE Consults: 01/16/19 13:34 Consult to Psychiatry [CONS] Stat Consulting Provider: Psychiatry Parul Reason consult: Dolores slip on chart Dolores Slip initiated date and time: 01/1601/16/19 18:05 Consult to Yard Person [CONS] Routine Reason for SW Consult: possible needs at discharge regarding HH, nursing, PT, OT, hospice, etc. - Constitutional Vitals: Temp Pulse Resp BP Pulse Ox 98.1 F 88 16 112/78 100 01/17/19 11:04 01/17/19 11:04 01/17/19 11:04 01/17/19 11:04 01/17/19 11:04 General appearance: Present: cachectic Exam: NAD Rib pain - Head Head exam: Present: atraumatic, normocephalic - Eye Eye exam: Present: PERRL, conjuntiva pink, sclera anicteric Pupils: Present: PERRL - Neck Neck exam general surgery: Present: supple, trachea midline. Absent: lymphadenopathy - Respiratory Respiratory exam: Present: CTAB. Absent: accessory muscle use, rales, rhonchi, wheezes - Cardiovascular Cardiovascular exam: Present: RRR, +S1, +S2. Absent: diastolic murmur, gallop, rubs, systolic murmur - GI/Abdominal GI/Abdominal exam: Present: normal bowel sounds, soft, no peritoneal signs. Absent: distended, tenderness - Extremities Exam Extremities exam: Present: warm, radial pulses palpable and symmetrical. Absent: calf tenderness, cyanotic, pedal edema - Neurological Exam Neurological exam: Present: CN II-XII intact, oriented X3, no focal deficits. Absent: pronater drift, facial droop, speech deficit - Skin Skin exam: Present: dry, intact - Patient Status Disposition: Hospice - Home Condition: Fair - Discharge Instructions Instructions: Hospice Care (GEN), Methamphetamine Abuse (DC), Fall Prevention (DC) Follow Up With: NONE,PCP [Primary Care Provider] - (please follow up with hospice services.)
--- NOTE | 2019-01-17 11:44 | Physician Discharge Referral ---
Home Health/Hosp Referral Info Transfer to: Home Health - Diagnosis (1) Suicidal ideation Priority: Primary Status: Acute (2) Hospice care Priority: Primary Status: Acute (3) Rib pain on left side Priority: Primary Status: Acute (4) Liver cirrhosis Priority: Primary Status: Acute (5) Hypokalemia Priority: Primary Status: Acute (6) DVT prophylaxis Priority: Primary Status: Acute - Respiratory Orders Smoking Cessation: Smoking cessation has been advised. For more information, call the [place] Tobacco Quit Line at 7-424-QOXX-NOW. - Activity Activity Orders: Ambulate - Services Needed Following services are medically necessary services: Nursing, Home Health Aide, Physical Therapy, Med Social Work - Transfer Medications Home Medications: Lipase/Protease/Amylase [Creon Dr 36,000 Units Capsule] 36,000 units PO TIDAC 12/18/17 [History] OLANZapine [Zyprexa] 20 mg PO HS 12/18/17 [History] Sucralfate [Carafate] 1 gm PO BID 12/18/17 [History] Vilazodone HCl [Viibryd] 40 mg PO DAILY 12/18/17 [History] Buprenorphine HCl 8 mg SL BID 03/22/18 [History] raNITIdine HCl [Zantac] 300 mg PO BID 03/22/18 [History] LORazepam Oral Conc [Ativan Oral Conc] 1 mg SL Q6HR PRN 5 Days #10 mls 01/08/19 [Rx] Omeprazole [PriLOSEC] 20 mg PO BIDAC #60 cap 01/08/19 [Rx] OxyCODONE Oral CONC [Oxycodone Oral Conc] 5 mg SL Q6HR PRN 6 Days #7 ml 01/08/19 [Rx] Cholecalciferol (D-3) [Vitamin D] 1,000 unit PO DAILY 01/17/19 [History] Allergies/Adverse Reactions: Allergy/AdvReac Type Severity Reaction Status Date / Time cephalexin Allergy Rash Verified 01/07/19 08:44 clindamycin Allergy Rash Verified 01/07/19 08:44 nalbuphine [From Nubain] AdvReac "didn't Verified 01/07/19 08:44 like the way it made me feel" Certification: Further, I certify that my clinical findings support that this patient is homebound (i.e. absences from home require considerable and taxing effort and ar e for medical reasons or church services or infrequently or short duration when for other reasons) because: Homebound Reason: Patient requires assistance of a person or device to safely leave home Attestation: My signature below is to certify that this patient is under my care and that I, or nurse practitioner, or a physician's assistant professor of music working with me, has a [id number] encounter with this patient.
== END 2019-01-17 12:50 | disposition hospice, home (50) ==
LOC: 3BNU 10:20 → EMEROOARM 10:20 → 3BNU 16:33
PROVIDERS: ADMIT Pharmacist; ATTEND Pharmacist